=== PATIENT | female | born 1950 | race Caucasian/White ===

== ENCOUNTER → 2016-10-15 | Outpatient (CLI) | payer OTHER ==
[~2016-10-15] VITALS: Ht 157.5 cm; Wt 138.6 kg
[~2016-10-15] MED LIST: ACET-1311 PO; ADVIN50050 INH; ALBU1AER9 INH; ALBU1NEB10 INH; AMLO-114 PO; ATOR10TA88 PO; CHOL100010 PO; CLB100 PO; EFFSR75 PO; FLUT0.15 NAE; GABA-113 PO; GABA1CAP4 PO; METF-384 PO; PANT40TA PO; PRAM1TAB47 PO; SNG10 PO; SULF800T23 PO; TRAM-10 PO; VENL150T33 PO
[2016-10-15 16:47] VITALS: BP 129/80; PULSE 76; Ht 157.5 cm; Wt 138.6 kg
== END | disposition home or self-care (01) ==
LOC: C.NEUR 14:23
PROVIDERS: ATTEND Internal Medicine Pulmonary Disease
DX: G47.33 Obstructive sleep apnea (adult) (pediatric) (principal)

== ENCOUNTER → 2016-11-18 | Outpatient (CLI) | payer OTHER ==
[~2016-11-18] MED LIST changes: +ATOR10TA82 PO; -ATOR10TA88 PO
[2016-11-18 12:42] LABS: BASO % 0.2 %; BASO ABS # 0.02 K/uL (0-0.2); COMPLETE YES; EOS % 1.7 %; HEMATOCRIT 42.7 % (37-47); IG% 0.2 %; LYMPH % 25.9 %; MEAN CELL VOLUME 96.8 fL (80-100); MEAN CORPUSCULAR HEMOGLOBIN 31.7 pg (25-34); MEAN CORPUSCULAR HGB CONC 32.8 g/dl (32-36); MEAN PLATELET VOLUME 10.1 fL (7.4-10.4); MONO % 7.8 %; NEUT % 64.2 %; PLATELET COUNT 198 K/uL (130-400); RED BLOOD COUNT 4.41 M/uL (4.2-5.4); WHITE BLOOD COUNT 8.87 K/uL (4.8-10.8)
[2016-11-18 12:52] LABS: ALT/SGPT 92 U/L (12-78); BLOOD UREA NITROGEN 19 mg/dl (7-18); BUN/CREATININE RATIO 27.7 (10-20); CALCIUM 8.8 mg/dl (8.5-10.1); CARBON DIOXIDE 33 mmol/L (21-32); CHLORIDE 102 mmol/L (98-107); CHOLESTEROL 167 mg/dl (0-200); GLUCOSE 141 mg/dl (70-99); POTASSIUM 4.2 mmol/L (3.5-5.1); SODIUM 142 mmol/L (136-145); TRIGLYCERIDES 94 mg/dl (0-150); VERY LOW DENSITY LIPOPROT CALC 19 mg/dl
[2016-11-18 12:55] LABS: ALB/GLOB RATIO 0.9 (0.9-2); ALKALINE PHOSPHATASE 94 U/L (45-117); AST/SGOT 130 U/L (15-37); CHOLESTEROL/HDL RATIO 2.7; HDL CHOLESTEROL 61 mg/dl; LDL CHOLESTEROL CALCULATED 87 mg/dl
[2016-11-18 13:06] LABS: ESTIMATED AVERAGE GLUCOSE 131 mg/dl; HA1C FLAG Normal (Normal)
[2016-11-18 13:22] LABS: RATIO 5.8 mcg/mg (0-30.0)
== END | disposition home or self-care (01) ==
LOC: C.LABPVFM 08:23
PROVIDERS: ATTEND Physician Assistant Medical
DX: E11.9 Type 2 diabetes mellitus without complications (principal)

== ENCOUNTER → 2017-03-15 | Outpatient (CLI) | payer OTHER ==
[~2017-03-15] MED LIST changes: -ATOR10TA82 PO; +ATOR10TA88 PO
[2017-03-15 12:38] LABS: ESTIMATED AVERAGE GLUCOSE 140 mg/dl; HA1C FLAG Normal (Normal)
[2017-03-15 12:55] LABS: ALT/SGPT 114 U/L (12-78); AST/SGOT 130 U/L (15-37); BLOOD UREA NITROGEN 12 mg/dl (7-18); BUN/CREATININE RATIO 15.5 (10-20); CALCIUM 9.2 mg/dl (8.5-10.1); CARBON DIOXIDE 31 mmol/L (21-32); CHLORIDE 103 mmol/L (98-107); CHOLESTEROL 158 mg/dl (0-200); CREATININE 0.78 mg/dl (0.60-1.20); GLUCOSE 148 mg/dl (70-99); SODIUM 140 mmol/L (136-145); TRIGLYCERIDES 109 mg/dl (0-150); VERY LOW DENSITY LIPOPROT CALC 22 mg/dl
[2017-03-15 12:58] LABS: ALB/GLOB RATIO 0.8 (0.9-2); ALKALINE PHOSPHATASE 69 U/L (45-117); CHOLESTEROL/HDL RATIO 3.3; HDL CHOLESTEROL 48 mg/dl; LDL CHOLESTEROL CALCULATED 88 mg/dl
== END | disposition home or self-care (01) ==
LOC: C.LABBFT 08:11
PROVIDERS: ATTEND Internal Medicine
DX: E11.9 Type 2 diabetes mellitus without complications (principal); E55.9 Vitamin D deficiency, unspecified; K76.0 Fatty (change of) liver, not elsewhere classified

== ENCOUNTER → 2017-04-06 | Outpatient (CLI) | payer OTHER ==
--- NOTE | 2017-04-06 10:10 | DIAGNOSTIC IMAGING REPORT ---
PELVIC COMPLETE NON OB, TRANSVAG-FEMALE PELVIS CLINICAL HISTORY: 66 years-old Female presenting with abdominal pain at multiple sites, history of hysterectomy. TECHNIQUE: Real-time grayscale and color and spectral Doppler ultrasound imaging of the pelvis was performed first using a transabdominal probe and subsequently transvaginal for better characterization. COMPARISON: None. FINDINGS: Uterus: Postsurgical changes of hysterectomy. Right adnexa: Right ovary not visualized. Left adnexa: Left ovary not visualized. Other: No free fluid. IMPRESSION: Postsurgical changes of hysterectomy. Ovaries not visualized, possibly surgically absent. If there is continuing clinical concern for pelvic pathology, cross-sectional imaging could be obtained. Electronically signed by: Tico Adan M.D. 04/06/2017 10:09 AM Dictated Date/Time: 04/06/2017 10:07 AM
--- NOTE | 2017-04-06 10:13 | DIAGNOSTIC IMAGING REPORT ---
ABDOMEN COMPLETE (US) CLINICAL HISTORY: 66 years-old Female presenting with abdominal pain and multiple sites. TECHNIQUE: Real-time grayscale and limited color Doppler ultrasound imaging of the abdomen was performed. COMPARISON: 06/12/2015. FINDINGS: Pancreas: Visualized portions of the pancreatic head and body normal. Liver: Hyperechogenic parenchyma with heterogeneous echotexture, likely indicating fibrosis or steatosis. The liver measures 22 cm in maximal sagittal dimension. Main portal vein patent with normal directional flow. Biliary: No intrahepatic biliary ductal dilatation. Common bile duct measures up to 5 mm in diameter. Gallbladder: Surgically absent. Spleen: Normal in echogenicity and size, measuring 13.6 cm in length. Kidneys: Normal in size and echogenicity. Right kidney measures 10.6 cm, and left kidney measures 11.4 cm. No hydronephrosis. Vasculature: Limited visualization of the abdominal aorta and IVC. Visualized portions patent. Ascites: None. IMPRESSION: 1. Status post cholecystectomy. No biliary ductal dilatation. 2. Hepatomegaly. 3. Hyperechogenic liver parenchyma with heterogeneous echotexture, likely indicating fibrosis or steatosis. Further evaluation with MR of the liver could be considered as clinically warranted to quantify fat fraction. 4. Mild splenomegaly. In the setting of liver disease, this raises concern for portal hypertension. Electronically signed by: Tico Adan M.D. 04/06/2017 10:12 AM Dictated Date/Time: 04/06/2017 10:09 AM
== END | disposition home or self-care (01) ==
LOC: C.ULTR 09:14
PROVIDERS: ATTEND Internal Medicine
DX: R10.9 Unspecified abdominal pain (principal); R16.0 Hepatomegaly, not elsewhere classified; R93.2 Abnormal findings on diagnostic imaging of liver and biliary tract; Z90.49 Acquired absence of other specified parts of digestive tract; Z90.710 Acquired absence of both cervix and uterus

== ENCOUNTER → 2017-04-15 | Outpatient (CLI) | payer OTHER ==
[~2017-04-15] VITALS: Ht 157.5 cm; Wt 144.6 kg
[2017-04-15 14:11] VITALS: BP 121/73; PULSE 73; Ht 157.5 cm; Wt 144.6 kg
== END | disposition home or self-care (01) ==
LOC: C.NEUR 13:49
PROVIDERS: ATTEND Physician Assistant
DX: E66.01 Morbid (severe) obesity due to excess calories (principal); G47.34 Idiopathic sleep related nonobstructive alveolar hypoventilation; G47.33 Obstructive sleep apnea (adult) (pediatric); G47.61 Periodic limb movement disorder

== ENCOUNTER → 2017-04-15 | Outpatient (CLI) | payer OTHER ==
[~2017-04-15] MED LIST changes: +GADOXETATE DISODIUM (NON-WT BASED PROCEDURE) IV PRN
--- NOTE | 2017-04-15 17:42 | DIAGNOSTIC IMAGING REPORT ---
LIVER MRI HISTORY: R93.5 Abnormal findings on diagnostic imaging of [id number] Fa TECHNIQUE: Multiplanar multisequence MRI of the liver was performed both before and after the intravenous administration of 10 cc of Eovist contrast. COMPARISON STUDY: Abdominal ultrasound 04/06/2017. FINDINGS: Comparison of the liver on the out of phase imaging results in an approximate hepatic fat fraction of 16.3%. This is consistent with moderate steatosis. There is extensive motion artifact throughout the examination resulting in suboptimal evaluation of the abdomen. There are no definite hepatic or splenic masses. The adrenal glands, pancreas, and kidneys are unremarkable. The gallbladder surgically absent. Common bile duct is normal in course and caliber. No filling defects seen within the common bile duct. Normal caliber abdominal aorta. No retroperitoneal lymphadenopathy. The liver measures 23 cm in length. The spleen is normal in size measuring 11.5 cm in length. IMPRESSION: 1. Hepatomegaly demonstrating fatty change. The hepatic fat fraction is 16.3% consistent with moderate stenosis. 2. No hepatic lesions. 3. No acute abnormality within the abdomen. 4. Of note there is significant motion artifact throughout the examination resulting in suboptimal evaluation. Electronically signed by: Bean Landon M.D. 04/15/2017 5:40 PM Dictated Date/Time: 04/15/2017 5:28 PM
== END | disposition home or self-care (01) ==
LOC: C.MRI 15:05
PROVIDERS: ATTEND Physician Assistant
DX: R16.0 Hepatomegaly, not elsewhere classified (principal); K76.0 Fatty (change of) liver, not elsewhere classified; E66.01 Morbid (severe) obesity due to excess calories; G47.34 Idiopathic sleep related nonobstructive alveolar hypoventilation; G47.33 Obstructive sleep apnea (adult) (pediatric); G47.61 Periodic limb movement disorder

== ENCOUNTER → 2017-04-20 | Outpatient (CLI) | payer OTHER ==
[~2017-04-20] MED LIST changes: -GADOXETATE DISODIUM (NON-WT BASED PROCEDURE) IV PRN
--- NOTE | 2017-04-20 13:36 | DIAGNOSTIC IMAGING REPORT ---
NUCLEAR GASTRIC EMPTYING STUDY HISTORY: Generalized abdominal pain. Nausea. COMPARISON: Abdominal MRI 04/15/2017. TECHNIQUE: Following the oral administration of 1.1 mCi of technetium 99m sulfur colloid in egg sandwich and 8 ounces of water, static abdominal images are obtained anteriorly and posteriorly at 0 minutes, 1 hour, 2 hour, and 4 hour time intervals. Gastric emptying was calculated utilizing the geometric mean method. FINDINGS: There is approximately 91% activity remaining at the 1 hour time interval (normal is less than 90%), 57% remaining at the 2 hour time interval (normal is less than 60%), and 7% activity remaining at the 4 hour time interval (normal is less than 10%). IMPRESSION: Slightly delayed gastric emptying at the 1 hour time interval. Otherwise, normal gastric emptying study. Electronically signed by: Bean Landon M.D. 04/20/2017 1:35 PM Dictated Date/Time: 04/20/2017 1:34 PM
== END ==
LOC: C.NUCL 08:56
PROVIDERS: ATTEND Physician Assistant
DX: R11.0 Nausea (principal); R10.9 Unspecified abdominal pain

== ENCOUNTER → 2017-08-02 | Outpatient (CLI) | payer OTHER ==
[~2017-08-02] MED LIST changes: +ATOR10TA82 PO; -ATOR10TA88 PO; -SULF800T23 PO
[2017-08-02 13:19] LABS: ESTIMATED AVERAGE GLUCOSE 126 mg/dl; HA1C FLAG Normal (Normal)
[2017-08-02 13:28] LABS: ALT/SGPT 64 U/L (12-78); AST/SGOT 49 U/L (15-37); BLOOD UREA NITROGEN 18 mg/dl (7-18); BUN/CREATININE RATIO 22.8 (10-20); CALCIUM 8.9 mg/dl (8.5-10.1); CARBON DIOXIDE 28 mmol/L (21-32); CHLORIDE 103 mmol/L (98-107); GLUCOSE 146 mg/dl (70-99); SODIUM 136 mmol/L (136-145)
[2017-08-02 13:31] LABS: ALB/GLOB RATIO 0.8 (0.9-2); ALKALINE PHOSPHATASE 75 U/L (45-117)
[2017-08-02 13:32] LABS: CHOLESTEROL/HDL RATIO 2.6
== END | disposition home or self-care (01) ==
LOC: C.LABPVFM 09:10
PROVIDERS: ATTEND Internal Medicine
DX: E78.5 Hyperlipidemia, unspecified (principal); E11.9 Type 2 diabetes mellitus without complications; K76.0 Fatty (change of) liver, not elsewhere classified

== ENCOUNTER → 2017-08-31 | Outpatient (CLI) | payer OTHER ==
--- NOTE | 2017-08-31 15:09 | MAMMOGRAPHY REPORT ---
BILATERAL DIGITAL SCREENING MAMMOGRAM TOMOSYNTHESIS WITH CAD: 08/31/2017 CLINICAL HISTORY: Routine screening. Patient has no complaints. TECHNIQUE: Breast tomosynthesis in addition to standard 2D mammography was performed. Current study was also evaluated with a Computer Aided Detection (CAD) system. COMPARISON: Comparison is made to exams dated: 05/08/2015 mammogram, 05/27/2016 mammogram, 05/07/2014 mammogram, 12/22/2012 mammogram - [facility], and 09/19/2007. BREAST COMPOSITION: The tissue of both breasts is almost entirely fatty. FINDINGS: There are a few scattered benign rim calcifications in the breasts. No suspicious mass, a rchitectural distortion or cluster of suspicious microcalcifications is seen. IMPRESSION: ACR BI-RADS CATEGORY 1: NEGATIVE There is no mammographic evidence of malignancy. A 1 year screening mammogram is recommended. The pa tient will receive written notification of the results. Approximately 10% of breast cancers are not detected with mammography. A negative mammographic report should not delay biopsy if a clinically suggestive mass is present. Tori Diehl M.D. ay/:08/31/2017 11:59:23 Maintenance Service Supervisor: Yaquelin WILKINSON(Padmini)(Nilo), [facility] letter sent: Normal 1/2 BI-RADS Code: ACR BI-RADS Category 1: Negative
== END | disposition home or self-care (01) ==
LOC: C.MAMM 11:09
PROVIDERS: ATTEND Internal Medicine
DX: Z12.31 Encounter for screening mammogram for malignant neoplasm of breast (principal)

== ENCOUNTER 2017-10-19 09:49 | Emergency (ER) | payer OTHER ==
[~2017-10-19] VITALS: Ht 157.5 cm; Wt 138.0 kg
[~2017-10-19 09:49] MED LIST changes: +GABA-1219 PO; -GABA1CAP4 PO
[2017-10-19 09:51] VITALS: TEMP 36.3; Ht 157.5 cm; Wt 138.0 kg
[2017-10-19] MEDS ORDERED: PANT40TA2 PO (10:38)
[2017-10-19] MEDS ORDERED: LPT10 PO (10:38)
[2017-10-19] MEDS ORDERED: CELE1CAP28 PO (10:38)
[2017-10-19] MEDS ORDERED: AMLO-114 PO (10:38)
[2017-10-19] MEDS ORDERED: METF500T5 PO (10:38)
[2017-10-19] MEDS ORDERED: MONT1TAB3 PO (10:38)
[2017-10-19] MEDS ORDERED: GABA-113 PO ×2 (10:38)
--- NOTE | 2017-10-19 10:53 | EMERGENCY ROOM VISIT NOTE ---
History Report prepared by Cait: Jimmy Sutton Under the Supervision of: Dr. Chava Johnson M.D. First contact with patient: 10:35 Chief Complaint: HEADACHE Stated Complaint: HEADACHES, BODY ACHES, NECK, STOMACH RIB LEFT ONE History of Present Illness The patient is a 67 year old white female with a past medical history of asthma , diabetes, HTN who presents to the ED with a cc of a persistent headache beginning a few days ago. Positive blurry vision, nausea, sweats, chills, cough , abdominal pain. Negative loss of consciousness, vomiting. She states that she hit her head a week ago on the visor of her car, and a few days ago she tripped on [place] corner [place] the [place] and [place]. The patient notes that she hit the side of her head but did not pass out. She says that ever since the fall, she has had an achy headache "everywhere". The patient states that sleeping makes the headache better. She notes no recent medication changes or surgical history. She did not get her flu shot this season. The patient notes no current alcohol or tobaccos use. She does not take any blood thinners. Source of History: patient, family Onset: A few days ago Position: head Symptom Intensity: after falling Quality: other (ache) Timing: other (persistent) Associated Symptoms: + chills, + diaphoresis, + cough, + nausea, + abdominal pain, No LOC, No vomiting Note: Positive blurry vision. Review of Systems See HPI for pertinent positives and negatives. A total of ten systems were reviewed and were otherwise negative. Past Medical & Surgical Medical Problems: (1) Asthma (2) Bronchitis (3) Diabetes mellitus (4) HTN (hypertension) (5) PNA (pneumonia) (6) Rotator cuff injury Surgical Problems: (1) H/O: hysterectomy (2) History of cholecystectomy (3) History of knee replacement, total Family History Diabetes mellitus FH: heart disease Hypertension Social History Smoking Status: Never Smoker Alcohol Use: none Marital Status: Housing Status: lives with significant other Occupation Status: disabled Current/Historical Medications Scheduled Amlodipine (Norvasc), 10 MG PO DAILY Atorvastatin (Lipitor), 10 MG PO HS Celecoxib (Celecoxib), 100 MG PO BID Gabapentin (Neurontin), 300 MG PO BID Gabapentin (Neurontin), 900 MG PO HS Metformin Hcl Er (Glucophage Er), 1,000 MG PO BID Montelukast Sodium (Singulair), 10 MG PO DAILY Pantoprazole (Pantoprazole Sodium), 40 MG PO BID Allergies Coded Allergies: Cetirizine (Verified Allergy, Intermediate, RASH, 10/19/17) RASH Diphenhydramine (Verified Adverse Reaction, Mild, SHAKEY, DIZZY, DROWSY, ) SHAKES Metformin (Verified Adverse Reaction, Unknown, gi upset, 10/19/17) Physical Exam Vital Signs Date Time Temp Pulse Resp B/P (MAP) Pulse Ox O2 Delivery O2 Flow Rate FiO2 10/19/17 11:06 21 88 Room Air 10/19/17 11:06 92 Nasal Cannula 10/19/17 10:22 78 20 102/55 94 Room Air 10/19/17 09:51 36.3 80 18 98/48 93 Room Air Physical Exam GENERAL: Awake, alert, well-appearing, NAD HENT: Normocephalic, atraumatic. EYES: Gross vision intact to finger counting. EOMI, painless, no proptosis. Normal conjunctiva. Sclera non-icteric. NECK: Supple. No nuchal rigidity. FROM. RESPIRATORY: CTAB, no rhonchi, wheezing, crackles CARDIAC: RRR, no MRG ABDOMEN: Obese, soft, NTND, BS+ MSK: No chest wall TTP, no LE edema NEURO: CN 2-12 intact, 5/5 upper and lower extremity strength, no dysmetria, no drift, good finger to nose, no sensory deficits. SKIN: Surgical incisional scars over bilateral anterior knees. Medical Decision & Procedures ER Provider Diagnostic Interpretation: CT: Radiology results as stated below per my review and radiologist interpretation HEAD WITHOUT CONTRAST (CT) CLINICAL HISTORY: 67 years-old Female with Evaluate for hemorrhage or pathology. Acute headaches TECHNIQUE: Multiple axial CT images of the head were obtained without contrast. A dose lowering technique was utilized adhering to the principles of ALARA. CT DOSE: 537.48 mGy.cm COMPARISON: CT maxillofacial 09/11/2013. FINDINGS: No acute intracranial hemorrhage, midline shift, intracranial mass, hydrocephalus, territorial ischemia or abnormal extra-axial collection. Cerebral vascular calcifications are seen at the level of the skull base. The calvarium is intact. Small left mastoid effusion. There is mild volume loss of the left maxillary sinus. Hypoplasia of the frontal sinuses. Soft tissues and orbits are unremarkable. IMPRESSION: No acute intracranial abnormality. The above report was generated using voice recognition software. It may contain grammatical, syntax or spelling errors. Electronically signed by: Sp Garner M.D. 10/19/2017 11:39 AM Dictated Date/Time: 10/19/2017 11:34 AM Laboratory Results 10/19/17 11:03 Red Blood Count 4.17, Mean Corpuscular Volume 95.2, Mean Corpuscular Hemoglobin 32.4, Mean Corpuscular Hemoglobin Concent 34.0, Mean Platelet Volume 9.5, Neutrophils (%) (Auto) 75.3, Lymphocytes (%) (Auto) 11.7, Monocytes (%) (Auto) 12.6, Eosinophils (%) (Auto) 0.1, Basophils (%) (Auto) 0.2, Neutrophils # (Auto ) 10.40, Lymphocytes # (Auto) 1.62, Monocytes # (Auto) 1.75, Eosinophils # (Auto ) 0.02, Basophils # (Auto) 0.03 10/19/17 11:03 Test 10/19/17 11:03 White Blood Count 13.84 K/uL (4.8-10.8) Red Blood Count 4.17 M/uL (4.2-5.4) Hemoglobin 13.5 g/dL (12.0-16.0) Hematocrit 39.7 % (37-47) Mean Corpuscular Volume 95.2 fL (80-100) Mean Corpuscular Hemoglobin 32.4 pg (25-34) Mean Corpuscular Hemoglobin Concent 34.0 g/dl (32-36) Platelet Count 180 K/uL (130-400) Mean Platelet Volume 9.5 fL (7.4-10.4) Neutrophils (%) (Auto) 75.3 % Lymphocytes (%) (Auto) 11.7 % Monocytes (%) (Auto) 12.6 % Eosinophils (%) (Auto) 0.1 % Basophils (%) (Auto) 0.2 % Neutrophils # (Auto) 10.40 K/uL (1.4-6.5) Lymphocytes # (Auto) 1.62 K/uL (1.2-3.4) Monocytes # (Auto) 1.75 K/uL (0.11-0.59) Eosinophils # (Auto) 0.02 K/uL (0-0.5) Basophils # (Auto) 0.03 K/uL (0-0.2) RDW Standard Deviation 47.0 fL (36.4-46.3) RDW Coefficient of Variation 13.5 % (11.5-14.5) Immature Granulocyte % (Auto) 0.1 % Immature Granulocyte # (Auto) 0.02 K/uL (0.00-0.02) Prothrombin Time 10.7 SECONDS (9.0-12.0) Prothromb Time International Ratio 1.0 (0.9-1.1) Activated Partial Thromboplast Time 27.1 SECONDS (21.0-31.0) Partial Thromboplastin Ratio 1.0 Anion Gap 7.0 mmol/L (3-11) Est Creatinine Clear Calc Drug Dose 100.7 ml/min Estimated GFR () 96.9 Estimated GFR (Non- 83.6 BUN/Creatinine Ratio 18.1 (10-20) Calcium Level 9.7 mg/dl (8.5-10.1) Troponin I < 0.015 ng/ml (0-0.045) Laboratory results reviewed by me Medications Administered Medications (Trade) Dose Ordered Sig/Colin Route Start Time Stop Time Status Last Admin Dose Admin Prochlorperazine Edisylate (Compazine Inj) 10 mg NOW STAT IV 10/19/17 10:55 10/19/17 10:56 DC 10/19/17 11:19 10 MG Sodium Chloride 1,000 ml @ 999 mls/hr Q1H1M STAT IV 10/19/17 10:55 10/19/17 11:55 DC 10/19/17 11:19 999 MLS/HR Acetaminophen (Tylenol Tab) 1,000 mg NOW STAT PO 10/19/17 10:55 10/19/17 10:56 DC 10/19/17 11:19 1,000 MG Diphenhydramine HCl (Benadryl Inj) 25 mg NOW STAT IV 10/19/17 10:55 10/19/17 10:56 DC 10/19/17 11:19 25 MG ECG Per My Interpretation Indication: nausea Rate (beats per minute): 71 Rhythm: normal sinus Findings: other (normal intervals, normal axis, T-wave flattening lead 3) ED Course 1046: The patient was evaluated in room C6. A complete history and physical exam was performed. 1228: I reevaluated the patient and she is resting. Discussed results and discharge instructions: she verbalized understanding and agreement. The patient is ready for discharge. Medical Decision The patient is a 67 year old white female with a past medical history of asthma , diabetes, HTN who presents to the ED with a cc of a persistent headache beginning a few days ago. Positive blurry vision, nausea, sweats, chills, cough , abdominal pain. Negative loss of consciousness, vomiting. Differential diagnosis: Etiologies such as migraine headache, meningitis, sinusitis, CO exposure, ICH, SAH, infection, tumor, headache, sinus thrombosis, arterial dissection, as well as others were entertained. Patient was seen and evaluated the bedside. Patient was complaining of multiple complaints. Patient was complaining some mild headache. Patient has no focal neuro deficits no signs of meningismus. Patient did have a CT of her brain as the patient did state that she tripped and fell approximately 1 week prior. Patient does not take any blood thinning medications. Patient's gross visual acuity is intact. The patient did complain of some mild blurred vision but no double vision. Patient did have blood work completed along with an EKG and troponin. Patient's blood work did show a mild white count of 13,000. Patient's other blood work is fairly unremarkable. Patient had normal kidney function. Upon reassessment the patient was feeling improved. Patient was told of her findings. Patient was told to follow-up with her PCP. Given her negative troponin and EKG. Less likely ACS. Patient is PE RC of 1. Wells of 0. Less likely PE. I do not believe the patient requires any further imaging or treatment with regard to her headache now that it is resolved. Patient was given strict follow-up, discharge, and return precautions. All questions were answered. Patient was deemed suitable for outpatient follow-up at this time. Patient agreed with the plan of care and was safely discharged home. Medication Reconcilliation Current Medication List: was personally reviewed by me Blood Pressure Screening Patient's blood pressure: Normal blood pressure Impression Primary Impression: Headache Scribe Attestation The scribe's documentation has been prepared under my direction and personally reviewed by me in its entirety. I confirm that the note above accurately reflects all work, treatment, procedures, and medical decision making performed by me. Departure Information Dispostion Home / Self-Care Referrals Bismark Ronquillo M.D. (PCP) Patient Instructions Headache Pain, My [facility] Additional Instructions Please return to the emergency department if you have worsening or recurrent symptoms not amenable to at-home treatment. Please call for a follow-up appointment with her primary care physician. Please take your medications as prescribed. If you have other concerns and/or complaints please feel free to also call your primary care physician's office or return the ED for further evaluation, management, and treatment. You were found to have an elevated blood pressure today (>120 sytolic or >90 diastolic). Per medicare guidelines, you need to follow up with this blood pressure screening with your Primary Care Physician (PCP). For a new PCP call [phone]. You may take 600 mg Ibuprofen every 6 hours as needed for pain with food for no more than 2 consecutive days. You may take tylenol 1000 mg every 6 hours as needed for pain. You may take motrin and tylenol separately or at the same time. Take your medications as prescribed. If taking an antibiotic consider taking a probiotic and/or eating yogurt, but at the least, please take with food as it can cause upset stomach. If culture results are not available at discharge, if they are positive for concern of infection, you will be informed of the results as soon as they are available. You have been examined and treated today on an emergency basis only. This is not a substitute for, or an effort to provide, complete comprehensive medical care. It is impossible to recognize and treat all injuries or illnesses in a single emergency department visit. It is therefore important that you follow up closely with [facility], your PCP, and/or your specialist(s). Call as soon as possible for an appointment. Thank you for your time and consideration. I look forward to speaking with you again soon. Please don't hesitate to call us if you have any questions. Problem Qualifiers Primary Impression: Headache Headache type: unspecified Headache chronicity pattern: chronic headache Intractability: not intractable Qualified Codes: R51 - Headache
[2017-10-19] MEDS ORDERED: ACETAMINOPHEN 500 MG TAB PO STA (10:55)
[2017-10-19] MEDS ORDERED: SODIUM CHLORIDE 0.9% 1000ML 1,000 ML IV STA (10:55)
[2017-10-19] MEDS ORDERED: PROCHLORPERAZINE 5 MG/ML 2 ML VIAL IV STA (10:55)
[2017-10-19] MEDS ORDERED: DiphenhydrAMINE HCL 50 MG/ML VIAL IV STA (10:55)
[2017-10-19 11:06] VITALS: O2SAT 92
[2017-10-19 11:20] LABS: BASO % 0.2 %; BASO ABS # 0.03 K/uL (0-0.2); EOS % 0.1 %; EOS ABS # 0.02 K/uL (0-0.5); HEMATOCRIT 39.7 % (37-47); HEMOGLOBIN 13.5 g/dL (12.0-16.0); IG# 0.02 K/uL (0.00-0.02); LYMPH % 11.7 %; LYMPH ABS # 1.62 K/uL (1.2-3.4); MEAN CELL VOLUME 95.2 fL (80-100); MEAN CORPUSCULAR HEMOGLOBIN 32.4 pg (25-34); MEAN PLATELET VOLUME 9.5 fL (7.4-10.4); MONO % 12.6 %; MONO ABS # 1.75 K/uL (0.11-0.59); NEUT % 75.3 %; PLATELET COUNT 180 K/uL (130-400); RED CELL DISTRIBUTION WIDTH CV 13.5 % (11.5-14.5); WHITE BLOOD COUNT 13.84 K/uL (4.8-10.8)
[2017-10-19 11:28] LABS: PTT PATIENT 27.1 SECONDS (21.0-31.0)
[2017-10-19 11:37] LABS: BLOOD UREA NITROGEN 14 mg/dl (7-18); CALCIUM 9.7 mg/dl (8.5-10.1); CARBON DIOXIDE 28 mmol/L (21-32); CREATININE 0.75 mg/dl (0.60-1.20); GLUCOSE 152 mg/dl (70-99); POTASSIUM 3.9 mmol/L (3.5-5.1); SODIUM 136 mmol/L (136-145)
--- NOTE | 2017-10-19 11:40 | DIAGNOSTIC IMAGING REPORT ---
HEAD WITHOUT CONTRAST (CT) CLINICAL HISTORY: 67 years-old Female with Evaluate for hemorrhage or pathology. Acute headaches TECHNIQUE: Multiple axial CT images of the head were obtained without contrast. A dose lowering technique was utilized adhering to the principles of ALARA. CT DOSE: 537.48 mGy.cm COMPARISON: CT maxillofacial 09/11/2013. FINDINGS: No acute intracranial hemorrhage, midline shift, intracranial mass, hydrocephalus, territorial ischemia or abnormal extra-axial collection. Cerebral vascular calcifications are seen at the level of the skull base. The calvarium is intact. Small left mastoid effusion. There is mild volume loss of the left maxillary sinus. Hypoplasia of the frontal sinuses. Soft tissues and orbits are unremarkable. IMPRESSION: No acute intracranial abnormality. The above report was generated using voice recognition software. It may contain grammatical, syntax or spelling errors. Electronically signed by: Sp Garner M.D. 10/19/2017 11:39 AM Dictated Date/Time: 10/19/2017 11:34 AM
[2017-10-19 12:42] VITALS: BP 114/65; PULSE 83; O2SAT 92
== END 2017-10-19 13:00 | disposition home or self-care (01) ==
LOC: C.EDB 09:51 → C.EDC 13:00
DX: R51 Headache (principal); J45.909 Unspecified asthma, uncomplicated; E11.9 Type 2 diabetes mellitus without complications; I10 Essential (primary) hypertension; Z87.01 Personal history of pneumonia (recurrent); Z83.3 Family history of diabetes mellitus; Z82.49 Family history of ischemic heart disease and other diseases of the circulatory system; Z79.899 Other long term (current) drug therapy; Z88.8 Allergy status to other drugs, medicaments and biological substances

== ENCOUNTER 2017-10-22 11:32 | Emergency (ER) | payer OTHER ==
[~2017-10-22] VITALS: Ht 157.5 cm; Wt 137.0 kg
[~2017-10-22 11:32] MED LIST changes: -ACET-1311 PO; -ADVIN50050 INH; -ALBU1AER9 INH; -ALBU1NEB10 INH; -ATOR10TA82 PO; +CELE1CAP28 PO; -CHOL100010 PO; -CLB100 PO; -EFFSR75 PO; -FLUT0.15 NAE; -GABA-1219 PO; +LPT10 PO; -METF-384 PO; +METF500T5 PO; +MONT1TAB3 PO; -PANT40TA PO; +PANT40TA2 PO; -PRAM1TAB47 PO; -SNG10 PO; -TRAM-10 PO; -VENL150T33 PO
[2017-10-22 11:35] VITALS: TEMP 36.6; Ht 157.5 cm; Wt 137.0 kg
[2017-10-22] MEDS ORDERED: TRAM-10 PO (12:03)
[2017-10-22] MEDS ORDERED: MULT-506 PO (12:04)
[2017-10-22] MEDS ORDERED: ACET-1256 PO (12:05)
[2017-10-22] MEDS ORDERED: SODIUM CHLORIDE 0.9% 1000ML 1,000 ML IV STA (12:27)
[2017-10-22] MEDS ORDERED: KETOROLAC TROMETHAMINE 30 MG/ML VIAL IV STA (12:27)
[2017-10-22] MEDS ORDERED: ONDANSETRON INJ 2 MG/ML 2 ML VIAL IV STA (12:27)
[2017-10-22] MEDS ORDERED: HYDROmorphone INJ 1 MG/ML SYR IV STA (12:27)
[2017-10-22] MEDS ORDERED: OPTIRAY 320 IV PRN (12:45)
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
[2017-10-22 13:03] LABS: BASO % 0.2 %; BASO ABS # 0.02 K/uL (0-0.2); EOS % 0.5 %; EOS ABS # 0.06 K/uL (0-0.5); HEMATOCRIT 38.3 % (37-47); HEMOGLOBIN 12.9 g/dL (12.0-16.0); IG# 0.03 K/uL (0.00-0.02); LYMPH % 14.7 %; LYMPH ABS # 1.61 K/uL (1.2-3.4); MEAN CELL VOLUME 96.5 fL (80-100); MEAN CORPUSCULAR HEMOGLOBIN 32.5 pg (25-34); MEAN CORPUSCULAR HGB CONC 33.7 g/dl (32-36); MEAN PLATELET VOLUME 9.9 fL (7.4-10.4); MONO % 13.4 %; MONO ABS # 1.47 K/uL (0.11-0.59); NEUT % 70.9 %; NEUT ABS # 7.78 K/uL (1.4-6.5); PLATELET COUNT 170 K/uL (130-400); RED CELL DISTRIBUTION WIDTH CV 13.4 % (11.5-14.5); RED CELL DISTRIBUTION WIDTH SD 47.1 fL (36.4-46.3); WHITE BLOOD COUNT 10.97 K/uL (4.8-10.8)
[2017-10-22 13:17] LABS: ALBUMIN 2.5 gm/dl (3.4-5.0); CALCIUM 9.1 mg/dl (8.5-10.1); CREATININE 0.87 mg/dl (0.60-1.20); POTASSIUM 3.7 mmol/L (3.5-5.1)
[2017-10-22 13:20] LABS: TOTAL PROTEIN 7.3 gm/dl (6.4-8.2)
[2017-10-22] MEDS ORDERED: CEFTRIAXONE SOD INJ 1 GM ADDVIAL IV STA (13:27)
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
[2017-10-22] MEDS ORDERED: CIPROFLOXACIN 500MG HOME PACK PO STA (14:30)
[2017-10-22 15:08] VITALS: BP 112/62; PULSE 75; O2SAT 98
--- NOTE | 2017-10-24 11:46 | Pharmacy Progress Note ---
ED Pharmacist Culture FollowUp Date of Service: Oct 24, 2017. Urine cx is growing e coli sensitive to ciprofloxacin. Patient was discharged with cipro 500mg #2 homepack. She did not receive a written or e-Rx on discharge. Reviewed case with Dr Arambula. Rx for Cipro 250mg PO BID x 6 additional days called to [facility] [phone] per patient's request.
== END 2017-10-22 15:20 | disposition home or self-care (01) ==
LOC: C.EDB 11:34 → C.EDC 15:20
DX: N30.00 Acute cystitis without hematuria (principal); M54.2 Cervicalgia; M54.9 Dorsalgia, unspecified; M25.511 Pain in right shoulder; M25.512 Pain in left shoulder; W01.198A Fall on same level from slipping, tripping and stumbling with subsequent striking against other object, initial encounter; J45.909 Unspecified asthma, uncomplicated; E11.9 Type 2 diabetes mellitus without complications; I10 Essential (primary) hypertension; Z79.84 Long term (current) use of oral hypoglycemic drugs; Z88.8 Allergy status to other drugs, medicaments and biological substances; Z88.6 Allergy status to analgesic agent; Z83.3 Family history of diabetes mellitus; Z82.49 Family history of ischemic heart disease and other diseases of the circulatory system

== ENCOUNTER → 2017-10-27 | Outpatient (CLI) | payer OTHER ==
[~2017-10-27] MED LIST changes: +ACET-1256 PO; +MULT-506 PO; +TRAM-10 PO
--- NOTE | 2017-10-27 09:02 | DIAGNOSTIC IMAGING REPORT ---
(LIVER) ABDOMEN LIMITED CLINICAL HISTORY: ABNORMAL LIVER FUNCTION TEST TECHNIQUE: Ultrasound COMPARISON STUDY: None FINDINGS: Fatty infiltration of the liver. Prior cholecystectomy. Common bile duct 6 mm. Pancreas and right kidney are unremarkable. IMPRESSION: Fatty infiltration of liver. Prior cholecystectomy. The above report was generated using voice recognition software. It may contain grammatical, syntax or spelling errors. Electronically signed by: Otoniel Quintero M.D. 10/27/2017 9:00 AM Dictated Date/Time: 10/27/2017 8:57 AM
== END | disposition home or self-care (01) ==
LOC: C.ULTR 08:31
PROVIDERS: ATTEND Physician Assistant
DX: R79.89 Other specified abnormal findings of blood chemistry (principal)

== ENCOUNTER → 2018-03-07 | Outpatient (CLI) | payer OTHER ==
[~2018-03-07] MED LIST changes: -AMLO-114 PO; +AMLO10TA3 PO
[2018-03-07 17:27] LABS: BASO % 0.5 %; BASO ABS # 0.03 K/uL (0-0.2); EOS % 2.2 %; EOS ABS # 0.14 K/uL (0-0.5); HEMATOCRIT 42.6 % (37-47); HEMOGLOBIN 13.6 g/dL (12.0-16.0); IG# 0.01 K/uL (0.00-0.02); LYMPH % 32.6 %; MEAN CELL VOLUME 98.6 fL (80-100); MEAN CORPUSCULAR HEMOGLOBIN 31.5 pg (25-34); MEAN CORPUSCULAR HGB CONC 31.9 g/dl (32-36); MEAN PLATELET VOLUME 10.3 fL (7.4-10.4); MONO % 13.3 %; MONO ABS # 0.86 K/uL (0.11-0.59); NEUT % 51.2 %; NEUT ABS # 3.31 K/uL (1.4-6.5); PLATELET COUNT 198 K/uL (130-400); RED CELL DISTRIBUTION WIDTH CV 13.5 % (11.5-14.5); RED CELL DISTRIBUTION WIDTH SD 48.7 fL (36.4-46.3); WHITE BLOOD COUNT 6.45 K/uL (4.8-10.8)
[2018-03-07 17:47] LABS: ALBUMIN 3.6 gm/dl (3.4-5.0); ALKALINE PHOSPHATASE 71 U/L (45-117); ALT/SGPT 60 U/L (12-78); AST/SGOT 55 U/L (15-37); BLOOD UREA NITROGEN 18 mg/dl (7-18); CALCIUM 9.2 mg/dl (8.5-10.1); CARBON DIOXIDE 31 mmol/L (21-32); CHOLESTEROL 159 mg/dl (0-200); CREATININE 0.76 mg/dl (0.60-1.20); GLUCOSE 150 mg/dl (70-99); LDL CHOLESTEROL CALCULATED 88 mg/dl; POTASSIUM 4.2 mmol/L (3.5-5.1); SODIUM 138 mmol/L (136-145)
[2018-03-08 05:47] LABS: HEMOGLOBIN A1C 6.6 % (4.5-5.6)
== END | disposition home or self-care (01) ==
LOC: C.LABBFT 12:04
PROVIDERS: ATTEND Physician Assistant Medical
DX: E11.9 Type 2 diabetes mellitus without complications (principal); E78.5 Hyperlipidemia, unspecified; E55.9 Vitamin D deficiency, unspecified

== ENCOUNTER 2018-11-17 15:06 | Inpatient (IN) ==
[2018-11-17] MEDS ORDERED: ALBUT/IPRATROP 3MG/0.5MG NEB 3 ML VIAL NEB STA ×3 (16:21→20:30)
[2018-11-17] MEDS ORDERED: GABAPENTIN 300 MG CAP PO STA (16:21)
--- NOTE | 2018-11-17 16:44 | XRay Report ---
XR chest 1V portable CLINICAL HISTORY: 68 years-old Female presenting with sob. TECHNIQUE: Portable upright AP view of the chest was obtained. COMPARISON: Chest CT from 10/22/2017. FINDINGS: Cardiac silhouette moderately enlarged. Pulmonary vascular prominence. Mild bronchial wall cuffing. N o other focal opacity. No large effusion or pneumothorax. Degenerative changes of the thoracic spine. IMPRESSION: 1. Cardiomegaly with volume overload and early congestive change. No sonam pulmonary edema. Electronically signed by: Tico Adan M.D. 11/17/2018 4:42 PM
[2018-11-17 17:01] LABS: Basophils # (auto) 0.02 K/uL (0-0.2); Basophils % (auto) 0.2 %; Eosinophils % (auto) 1.8 %; Hematocrit (blood only) 39.7 % (37-47); Hemoglobin 13.2 g/dL (12.0-16.0); Immature Granulocytes # (auto) 0.03 K/uL (0.00-0.02); Immature Granulocytes % (auto) 0.3 %; Lymphocytes # (auto) 2.77 K/uL (1.2-3.4); Lymphocytes % (auto) 24.5 %; Mean Corpuscular Hgb Conc 33.2 g/dL (32-36); Mean Corpuscular Volume 96.8 fL (80-100); Mean Platelet Volume 9.9 fL (7.4-10.4); Monocytes # (auto) 0.98 K/uL (0.11-0.59); Monocytes % (auto) 8.7 %; Neutrophils % (auto) 64.5 %; Platelet Count 211 K/uL (130-400); RDW Coefficient of Variation 12.9 % (11.5-14.5); RDW Standard Deviation 45.5 fL (36.4-46.3)
[2018-11-17 17:19] LABS: Alanine Aminotransferase 38 U/L (12-78); Albumin Level 3.3 gm/dl (3.4-5.0); Aspartate Aminotransferase 27 U/L (15-37); BUN Creatinine Ratio 18.5 (10-20); Blood Urea Nitrogen 15 mg/dl (7-18); Calcium 8.7 mg/dl (8.5-10.1); Carbon Dioxide 33 mmol/L (21-32); Chloride 102 mmol/L (98-107); Creatinine Clr Calc Pharmacy 94.1 ml/min; Est GFR (African American) 87.7; Est GFR (Non-African American) 75.7; Glucose 200 mg/dl (70-99); Magnesium 1.7 mg/dl (1.8-2.4); Potassium 3.9 mmol/L (3.5-5.1); Sodium 140 mmol/L (136-145)
[2018-11-17 17:30] LABS: Albumin Globulin Ratio 0.7 (0.9-2); Alkaline Phosphatase 105 U/L (45-117); Bilirubin,Total 0.3 mg/dl (0.2-1); Globulin 4.4 gm/dl (2.5-4.0); NT Pro B Type Natriuretic Pept 188 pg/ml (0-900); Total Protein 7.7 gm/dl (6.4-8.2); Troponin I < 0.015 ng/ml (0-0.045)
[2018-11-17] MEDS ORDERED: MAGNESIUM SULFATE / D5W 1 GM/100 ML BAG IV ONE (17:43)
[2018-11-17] MEDS ORDERED: KETOROLAC TROMETHAMINE 15 MG/ML VIAL IV STA (18:37)
[2018-11-17] MEDS ORDERED: methylPREDNISolone 125 MG/2 ML VIAL IV STA (18:37)
[2018-11-17 19:03] LABS: Appearance Urine Clear (Clear); Blood Urine Negative (Negative); Color Urine Dark Yellow; Glucose Urine UA 2+ (Negative); Ketones Urine Trace (Negative); Leukocyte Esterase Urine Negative (Negative); Nitrite Urine Negative (Negative); Protein Urine Negative (Negative); Specific Gravity Urine 1.031 (1.000-1.030); Urobilinogen Urine Negative (Negative)
[2018-11-17 19:08] LABS: Bilirubin Urine Negative (Negative); Ictotest Urine Negative (Negative)
[2018-11-17] MEDS ORDERED: BENZONATATE 100 MG CAPSULE PO ONE (20:28)
[2018-11-17] MEDS ORDERED: LEVOFLOXACIN/D5W 750 MG/150 ML BAG IV STA (20:29)
--- NOTE | 2018-11-17 20:39 | Emergency Department Note ---
Entered by Tahir Joshi acting as a scribe for Kendy Gage DO History of Present Illness General Chief complaint: Leg Injury/Pain Stated complaint: SOB, CONGESTION, L LEG NUMBNESS Time Seen by Provider: 11/17/18 16:05 Source: patient History of Present Illness Onset (ago): month(s) 3 Location: hip Radiation: extremity (legs) Pain Consistency: + constant Maximum Pain Intensity: 8 Associated symptoms: + other (Positive for SOB, chest congestion, leg swelling, chils, chest pain, a cough, a fever, a headache, and a sore throat.) The patient is a 68 year old female who presents to the emergency department with complaints of constant hip pain beginning three months ago. The patient states that she has been getting spinal stenosis injections every few months for a year; however, she notes that she has not gotten an injection in four months. She reports that she has been having constant bilateral hip pain that radiates down the back of her legs. The patient states that her legs have also been tingling for the last few days. She notes that her pain is worse on the left which is her normal. She also complains of worsening SOB, chest congestion, leg swelling, chills, chest pain, a cough, a fever, a headache, and a sore throat over the last 3 days. She reports that her SOB and sore throat started a week ago. The patient states that she has a history of asthma and COPD. She notes that she does not smoke cigarettes and she reports that she wears 3L of oxygen at night. She states she does have an MDI at home. The patient states that she received a flu shot this year. She notes that she does not use any blood thinners. Unknown if sick contacts. No recent travel. No falls of injury to her back. No saddle anesthesia, no incontinence. Pt states she has a long history of back problem and her back pain is what she normally develops when she is due for another injection. Home Medications Home Medications Medication Instructions Recorded Confirmed Type acetaminophen 500 mg tablet 1,000 mg PO ONCE PRN tab 04/14/18 11/17/18 History amlodipine 10 mg tablet 10 mg PO DAILY 04/14/18 11/17/18 History atorvastatin 10 mg tablet 10 mg PO DAILY 04/14/18 11/17/18 History celecoxib 100 mg capsule 100 mg PO BID 04/14/18 11/17/18 History gabapentin 300 mg capsule 300 mg PO BID 04/14/18 11/17/18 History gabapentin 300 mg capsule 900 mg PO .QHS cap 04/14/18 11/17/18 History montelukast 10 mg tablet 10 mg PO QPM 04/14/18 11/17/18 History multivitamin,tx-minerals capsule 1 cap PO DAILY 04/14/18 11/17/18 History pantoprazole 40 mg tablet,delayed 40 mg PO BID 04/14/18 11/17/18 History release cholecalciferol (vitamin D3) 1,000 1,000 units PO DAILY 07/19/18 11/17/18 History unit capsule lidocaine 5 % topical ointment 1 appln TOP BID 07/19/18 11/17/18 History pramipexole 0.5 mg tablet 0.5 mg PO QPM 07/19/18 11/17/18 History ascorbate calcium-bioflavonoid 1 tab PO DAILY 11/17/18 11/17/18 History [Brit-C with Bioflavonoids] ascorbic acid (vitamin C) [Vitamin 0 mg PO DAILY 11/17/18 11/17/18 History C] oxybutynin chloride 5 mg PO DAILY 11/17/18 11/17/18 History Allergies Allergy/AdvReac Type Severity Reaction Status Date / Time cetirizine Allergy Intermediate RASH Verified 11/17/18 17:12 diphenhydramine AdvReac Mild SHAKEY, Verified 11/17/18 17:12 DIZZY, DROWSY metformin AdvReac Unknown gi upset Verified 11/17/18 17:12 Past Med/Surg History Social History Communication Ability: Effective Beliefs That Will Affect Care: None marital status: Current Living Situation: Alone Feels Safe at Home: Yes Safety Concerns: Feels Safe At This Time Smoking Status: Never smoker Hx Alcohol Use: Yes Hx Substance Use: No Review of Systems See HPI for pertinent positives & negatives. and A total of 10 systems reviewed and were otherwise negative Physical Exam Vital Signs Vital Signs - 24 hr 11/19/18 00:00 11/19/18 07:05 11/19/18 07:59 Temperature 36.6 C 36.9 C Temperature Source Oral Oral Pulse Rate [Right Finger] 84 67 90 Respiratory Rate 20 18 16 Respiratory Effort / Characteristics Non-Labored Spontaneous Respiratory Depth Normal Respiratory Pattern Blood Pressure [Right Arm] 113/68 109/61 Blood Pressure Mean [Right Arm] 83 77 Blood Pressure Position [Right Arm] Sitting Lying Pulse Oximetry 97 95 Oxygen Delivery Method Nasal Cannula Nasal Cannula Nasal Cannula Oxygen Flow Rate 2 3 2 11/19/18 11:33 11/19/18 11:46 11/19/18 12:47 Temperature 36.7 C Temperature Source Oral Pulse Rate [Right Finger] 77 82 Respiratory Rate 18 16 Respiratory Effort / Characteristics Respiratory Depth Respiratory Pattern Blood Pressure [Right Arm] 131/76 Blood Pressure Mean [Right Arm] 94 Blood Pressure Position [Right Arm] Lying Pulse Oximetry 98 97 91 Oxygen Delivery Method Room Air Nasal Cannula Nebulizer Room Air Oxygen Flow Rate 11/19/18 15:07 11/19/18 15:17 11/19/18 15:19 Temperature 36.9 C Temperature Source Oral Pulse Rate [Right Finger] 95 H 84 Respiratory Rate 18 16 Respiratory Effort / Characteristics Non-Labored Spontaneous Non-Labored Respiratory Depth Normal Respiratory Pattern Regular Blood Pressure [Right Arm] 121/71 Blood Pressure Mean [Right Arm] 87 Blood Pressure Position [Right Arm] Lying Pulse Oximetry 94 95 Oxygen Delivery Method Nasal Cannula Nebulizer Oxygen Flow Rate 3 11/19/18 19:34 Temperature Temperature Source Pulse Rate [Right Finger] 90 Respiratory Rate 16 Respiratory Effort / Characteristics Non-Labored Spontaneous Respiratory Depth Respiratory Pattern Blood Pressure [Right Arm] Blood Pressure Mean [Right Arm] Blood Pressure Position [Right Arm] Pulse Oximetry 95 Oxygen Delivery Method Nasal Cannula Oxygen Flow Rate 3 GENERAL: alert, well appearing, well nourished, no distress, non-toxic, obese. EYE EXAM: normal conjunctiva, PERRL and EOM's grossly intact OROPHARYNX: no exudate, no erythema, lips, buccal mucosa, and tongue normal and mucous membranes are moist NECK: supple, no nuchal rigidity, no adenopathy, non-tender LUNGS: Clear to auscultation. Normal chest wall mechanics. Decreased breath sounds, no wheezes, rhonchi, and rales. HEART: no murmurs, S1 normal and S2 normal ABDOMEN: abdomen soft, non-tender, normo-active bowel sounds, no masses, no rebound or guarding. BACK: Back is symmetrical on inspection and there is no deformity, no midline tenderness, no CVA tenderness. SKIN: no rashes and no bruising UPPER EXTREMITIES: upper extremities are grossly normal. Nml pulses b/l. LOWER EXTREMITIES: No pitting edema. Well healed scar on anterior aspect of the distal LLE, normal pulses. Nml sensory exam b/l. NEURO EXAM: Normal sensorium, cranial nerves II-XII grossly intact, normal speech, no gross weakness of arms, no gross weakness of legs. Course 1606: The patient was evaluated in room C8, and a complete history and physical examination were performed. 1811: I reevaluated and updated the patient. Nursing reported pt's sats dropped to 85% after going to the bathroom. Pt denies any improvement after nebs. 2021: I rechecked the patient. She still has a frequent cough and does not feel any better. She is not hypoxic and she has an oxygen saturation of 93% at this time. We discussed options of discharge with close follow up versus admission. 2232: Upon reevaluation, the patient is stable. I discussed the results and treatment plan with the patient. She verbalizes understanding and agreement. I discussed the patient's case with DIANNA Wharton. The patient will be evaluated for further management and care. Consultations Consultation #1: I reviewed the patient's case with DIANNA Wharton. He will evaluate the patient for further management. Time: 22:33 Administered Medications Acetaminophen (Tylenol) 650 mg PO Q4H PRN PRN Reason: Pain or Fever Stop: 12/18/18 00:44 Last Admin: 11/19/18 04:23 Dose: 650 mg Documented by: [id number] Albuterol (Duoneb) 3 ml NEB QIDR DEDE Stop: 12/18/18 07:59 Last Admin: 11/19/18 19:32 Dose: 3 ml Documented by: [id number] Admin: 11/19/18 15:06 Dose: 3 ml Documented by: [id number] Admin: 11/19/18 11:31 Dose: 3 ml Documented by: [id number] Admin: 11/19/18 07:03 Dose: 3 ml Documented by: [id number] Admin: 11/18/18 19:47 Dose: 3 ml Documented by: [id number] Admin: 11/18/18 15:21 Dose: 3 ml Documented by: [id number] Admin: 11/18/18 11:23 Dose: 3 ml Documented by: [id number] Admin: 11/18/18 07:35 Dose: 3 ml Documented by: [id number] Amlodipine Besylate (Norvasc) 10 mg PO DAILY DEDE Stop: 12/18/18 08:59 Last Admin: 11/19/18 08:58 Dose: 10 mg Documented by: [id number] Admin: 11/18/18 09:03 Dose: 10 mg Documented by: [id number] Atorvastatin Calcium (Lipitor) 10 mg PO DAILY DEDE Stop: 12/18/18 08:59 Last Admin: 11/19/18 08:57 Dose: 10 mg Documented by: [id number] Admin: 11/18/18 08:58 Dose: Not Given Documented by: [id number] Duloxetine HCl (Cymbalta) 20 mg PO QAM DEDE Stop: 12/19/18 08:59 Last Admin: 11/19/18 08:56 Dose: 20 mg Documented by: [id number] Gabapentin (Neurontin) 300 mg PO BID@0900,1400 DEDE Stop: 12/18/18 08:59 Last Admin: 11/19/18 12:54 Dose: 300 mg Documented by: [id number] Admin: 11/19/18 08:58 Dose: 300 mg Documented by: [id number] Admin: 11/18/18 14:00 Dose: 300 mg Documented by: [id number] Admin: 11/18/18 09:02 Dose: 300 mg Documented by: [id number] Gabapentin (Neurontin) 900 mg PO HS DEDE Stop: 12/18/18 00:44 Last Admin: 11/19/18 21:24 Dose: 900 mg Documented by: [id number] Admin: 11/18/18 21:04 Dose: 900 mg Documented by: [id number] Admin: 11/18/18 01:26 Dose: 900 mg Documented by: [id number] Heparin Sodium (Porcine) (Heparin Sodium (Porcine)) 5,000 units SQ Q12 DEDE Stop: 12/18/18 08:59 Last Admin: 11/19/18 21:23 Dose: 5,000 units Documented by: [id number] Cosigned by: [id number] Admin: 11/19/18 09:00 Dose: 5,000 units Documented by: [id number] Cosigned by: [id number] Admin: 11/18/18 21:08 Dose: 5,000 units Documented by: [id number] Cosigned by: [id number] Admin: 11/18/18 09:07 Dose: 5,000 units Documented by: [id number] Cosigned by: [id number] Levofloxacin/Dextrose (Levaquin/D5w) 500 mg in 100 mls @ 100 mls/hr IV Q24H DEDE Stop: 11/23/18 21:59 Last Admin: 11/19/18 21:26 Dose: 100 mls/hr Documented by: [id number] Infusion: 11/18/18 22:37 Dose: 0 mls/hr Documented by: [id number] Admin: 11/18/18 21:07 Dose: 100 mls/hr Documented by: [id number] Insulin Aspart (Novolog Flexpen) 0 units SC ACHS DEDE Stop: 12/18/18 12:29 Last Admin: 11/19/18 21:25 Dose: 21 units Documented by: [id number] Cosigned by: [id number] Admin: 11/19/18 18:20 Dose: 36 units Documented by: [id number] Cosigned by: [id number] Admin: 11/19/18 12:51 Dose: 41 units Documented by: [id number] Cosigned by: [id number] Admin: 11/19/18 08:59 Dose: 9 units Documented by: [id number] Cosigned by: [id number] Admin: 11/18/18 21:12 Dose: 6 units Documented by: [id number] Cosigned by: [id number] Admin: 11/18/18 18:01 Dose: 13 units Documented by: [id number] Cosigned by: [id number] Admin: 11/18/18 13:59 Dose: 10 units Documented by: [id number] Cosigned by: [id number] Montelukast Sodium (Singulair) 10 mg PO QPM DEDE Stop: 12/18/18 20:59 Last Admin: 11/19/18 21:24 Dose: 10 mg Documented by: [id number] Admin: 11/18/18 21:07 Dose: 10 mg Documented by: [id number] Multivitamins/Minerals (Multivitamin W/ Minerals Tab) 1 tab PO DAILY DEDE Stop: 12/18/18 08:59 Last Admin: 11/19/18 08:57 Dose: 1 tab Documented by: [id number] Admin: 11/18/18 09:00 Dose: 1 tab Documented by: [id number] Oxybutynin Chloride (Ditropan Xl) 5 mg PO DAILY DEDE Stop: 12/18/18 08:59 Last Admin: 11/19/18 08:57 Dose: 5 mg Documented by: [id number] Admin: 11/18/18 09:00 Dose: 5 mg Documented by: [id number] Pantoprazole Sodium (Protonix) 40 mg PO BID DEDE Stop: 12/18/18 00:44 Last Admin: 11/19/18 21:24 Dose: 40 mg Documented by: [id number] Admin: 11/19/18 08:58 Dose: 40 mg Documented by: [id number] Admin: 11/18/18 21:03 Dose: 40 mg Documented by: [id number] Admin: 11/18/18 09:03 Dose: 40 mg Documented by: [id number] Admin: 11/18/18 01:26 Dose: 40 mg Documented by: [id number] Pramipexole Dihydrochloride (Mirapex) 0.5 mg PO QPM DEDE Stop: 12/18/18 20:59 Last Admin: 11/19/18 21:24 Dose: 0.5 mg Documented by: [id number] Admin: 11/18/18 21:06 Dose: 0.5 mg Documented by: [id number] Prednisone (Prednisone) 50 mg PO QAM DEDE Stop: 12/19/18 08:59 Last Admin: 11/19/18 09:08 Dose: 50 mg Documented by: [id number] Vitamin D (Vitamin D3) 1,000 units PO DAILY DEDE Stop: 12/18/18 08:59 Last Admin: 11/19/18 08:59 Dose: 1,000 units Documented by: [id number] Admin: 11/18/18 09:05 Dose: 1,000 units Documented by: [id number] Discontinued Medications Albuterol (Duoneb) 3 ml NEB NOW STA Stop: 11/17/18 16:22 Last Admin: 11/17/18 16:55 Dose: 3 ml Documented by: [id number] Albuterol (Duoneb) 3 ml NEB NOW STA Stop: 11/17/18 18:38 Last Admin: 11/17/18 19:29 Dose: 3 ml Documented by: [id number] Albuterol (Duoneb) 3 ml NEB NOW STA Stop: 11/17/18 20:31 Last Admin: 11/17/18 20:57 Dose: 3 ml Documented by: [id number] Benzonatate (Tessalon Perle) 100 mg PO NOW ONE Stop: 11/17/18 20:29 Last Admin: 11/17/18 20:57 Dose: 100 mg Documented by: [id number] Furosemide (Lasix) 40 mg PO NOW ONE Stop: 11/19/18 10:07 Last Admin: 11/19/18 11:54 Dose: 40 mg Documented by: [id number] Gabapentin (Neurontin) 300 mg PO NOW STA Stop: 11/17/18 16:22 Last Admin: 11/17/18 16:55 Dose: 300 mg Documented by: [id number] Magnesium Sulfate/Dextrose (Magnesium Sulfate / D5w) 1 gm in 100 mls @ 100 mls/hr IV ONE ONE Stop: 11/17/18 18:42 Last Infusion: 11/17/18 20:08 Dose: 0 mls/hr Documented by: [id number] Admin: 11/17/18 18:37 Dose: 100 mls/hr Documented by: [id number] Levofloxacin/Dextrose (Levaquin/D5w) 750 mg in 150 mls @ 100 mls/hr IV NOW STA Stop: 11/17/18 21:58 Last Infusion: 11/17/18 22:35 Dose: 0 mls/hr Documented by: [id number] Admin: 11/17/18 20:57 Dose: 100 mls/hr Documented by: [id number] Ceftriaxone Sodium 1,000 mg/ (Dextrose) 60 mls @ 100 mls/hr IV DAILY DEDE Stop: 11/25/18 08:59 Last Infusion: 11/18/18 10:00 Dose: 0 mls/hr Documented by: [id number] Admin: 11/18/18 09:08 Dose: 100 mls/hr Documented by: [id number] Methylprednisolone 40 mg/ (Syringe) 0.64 mls @ 1.5 mls/min IV Q8H DEDE Stop: 12/18/18 03:59 Last Admin: 11/19/18 04:17 Dose: 1.5 mls/min Documented by: [id number] Admin: 11/18/18 19:57 Dose: 1.5 mls/min Documented by: [id number] Admin: 11/18/18 12:45 Dose: 1.5 mls/min Documented by: [id number] Admin: 11/18/18 04:37 Dose: 1.5 mls/min Documented by: [id number] Insulin Glargine (Lantus Solostar Pen) 10 units SC NOW ONE Stop: 11/18/18 12:46 Last Admin: 11/18/18 13:59 Dose: 10 units Documented by: [id number] Cosigned by: [id number] Insulin Glargine (Lantus Solostar Pen) 35 units SC NOW ONE; Protocol Stop: 11/19/18 12:31 Last Admin: 11/19/18 12:52 Dose: 35 units Documented by: [id number] Cosigned by: [id number] Ketorolac Tromethamine (Toradol) 15 mg IV NOW STA Stop: 11/17/18 18:38 Last Admin: 11/17/18 19:29 Dose: 15 mg Documented by: [id number] Methylprednisolone (Solumedrol) 60 mg IV NOW STA Stop: 11/17/18 18:38 Last Admin: 11/17/18 19:29 Dose: 60 mg Documented by: [id number] Miscellaneous Information (Consult Glycemic Management Pharmacy) 1 ea N/A NOW STA Stop: 11/19/18 11:48 Last Admin: 11/19/18 12:53 Dose: 1 ea Documented by: [id number] Medical Decision Making Differential Diagnosis Differential diagnosis: Etiologies such as infections, reactive airway disease, COPD, pneumonia, pleural effusion, pulmonary edema, ARDS, pneumothorax, CHF, cardiac ischemia, cardiac tamponade, dysrhythmia, anemia, pulmonary embolism, musculoskeletal, gastrointestinal process, as well as others were entertained. Medical Records Attestation: I reviewed the patient's medical records. Home Medications Current Medication List: was personally reviewed by me Laboratory Data Attestation: I reviewed the patient's lab results. Result diagrams: 11/17/18 16:36 11/17/18 16:36 Lab Results 11/17/18 11/17/18 11/17/18 Range/Units 16:36 16:36 16:48 WBC 11.30 H (4.8-10.8) K/uL RBC 4.10 L (4.2-5.4) M/uL Hgb 13.2 (12.0-16.0) g/dL Hct 39.7 (37-47) % MCV 96.8 (80-100) fL MCH 32.2 (25-34) pg MCHC 33.2 (32-36) g/dL RDW Std Deviation 45.5 (36.4-46.3) fL RDW Coeff of Shant 12.9 (11.5-14.5) % Plt Count 211 (130-400) K/uL MPV 9.9 (7.4-10.4) fL Immature Gran % (Auto) 0.3 % Neut % (Auto) 64.5 % Lymph % (Auto) 24.5 % [place] % (Auto) 8.7 % Eos % (Auto) 1.8 % Baso % (Auto) 0.2 % Immature Gran # (Auto) 0.03 H (0.00-0.02) K/uL Neut # (Auto) 7.30 H (1.4-6.5) K/uL Lymph # (Auto) 2.77 (1.2-3.4) K/uL [place] # (Auto) 0.98 H (0.11-0.59) K/uL Eos # (Auto) 0.20 (0-0.5) K/uL Baso # (Auto) 0.02 (0-0.2) K/uL Sodium 140 (136-145) mmol/L Potassium 3.9 (3.5-5.1) mmol/L Chloride 102 (98-107) mmol/L Carbon Dioxide 33 H (21-32) mmol/L Anion Gap 5.0 (3-11) BUN 15 (7-18) mg/dl Creatinine 0.81 (0.6-1.2) mg/dl Est Cr Clr Drug Dosing 94.1 ml/min Est GFR ( Amer) 87.7 Est GFR (Non-Af Amer) 75.7 BUN/Creatinine Ratio 18.5 (10-20) Glucose 200 H (70-99) mg/dl POC Glucose (70-99) Calcium 8.7 (8.5-10.1) mg/dl Magnesium 1.7 L (1.8-2.4) mg/dl Total Bilirubin 0.3 (0.2-1) mg/dl AST 27 (15-37) U/L ALT 38 (12-78) U/L Alkaline Phosphatase 105 (45-117) U/L Troponin I < 0.015 (0-0.045) ng/ml NT-Pro-B Natriuret Pep 188 (0-900) pg/ml Total Protein 7.7 (6.4-8.2) gm/dl Albumin 3.3 L (3.4-5.0) gm/dl Globulin 4.4 H (2.5-4.0) gm/dl Albumin/Globulin Ratio 0.7 L (0.9-2) Lipase 61 L (73-393) U/L TSH 1.040 (0.300-4.500) uIu/ml Urine Color Urine Appearance (Clear) Urine pH (4.5-7.5) Ur Specific [place] (1.000-1.030) Urine Protein (Negative) Urine Glucose (UA) (Negative) Urine Ketones (Negative) Urine Blood (Negative) Urine Nitrite (Negative) Urine Bilirubin (Negative) Urine Urobilinogen (Negative) Ur Leukocyte Esterase (Negative) Nasal Screen MRSA (PCR) (Negative) Influenza Type A (PCR) Neg for Influ A (Neg) Influenza Type B (PCR) Neg for Influ B (Neg) 11/17/18 11/18/18 11/18/18 Range/Units 18:30 01:00 07:56 WBC (4.8-10.8) K/uL RBC (4.2-5.4) M/uL Hgb (12.0-16.0) g/dL Hct (37-47) % MCV (80-100) fL MCH (25-34) pg MCHC (32-36) g/dL RDW Std Deviation (36.4-46.3) fL RDW Coeff of Shant (11.5-14.5) % Plt Count (130-400) K/uL MPV (7.4-10.4) fL Immature Gran % (Auto) % Neut % (Auto) % Lymph % (Auto) % [place] % (Auto) % Eos % (Auto) % Baso % (Auto) % Immature Gran # (Auto) (0.00-0.02) K/uL Neut # (Auto) (1.4-6.5) K/uL Lymph # (Auto) (1.2-3.4) K/uL [place] # (Auto) (0.11-0.59) K/uL Eos # (Auto) (0-0.5) K/uL Baso # (Auto) (0-0.2) K/uL Sodium (136-145) mmol/L Potassium (3.5-5.1) mmol/L Chloride (98-107) mmol/L Carbon Dioxide (21-32) mmol/L Anion Gap (3-11) BUN (7-18) mg/dl Creatinine (0.6-1.2) mg/dl Est Cr Clr Drug Dosing ml/min Est GFR ( Amer) Est GFR (Non-Af Amer) BUN/Creatinine Ratio (10-20) Glucose (70-99) mg/dl POC Glucose 288 H (70-99) Calcium (8.5-10.1) mg/dl Magnesium (1.8-2.4) mg/dl Total Bilirubin (0.2-1) mg/dl AST (15-37) U/L ALT (12-78) U/L Alkaline Phosphatase (45-117) U/L Troponin I (0-0.045) ng/ml NT-Pro-B Natriuret Pep (0-900) pg/ml Total Protein (6.4-8.2) gm/dl Albumin (3.4-5.0) gm/dl Globulin (2.5-4.0) gm/dl Albumin/Globulin Ratio (0.9-2) Lipase (73-393) U/L TSH (0.300-4.500) uIu/ml Urine Color Dark Yellow Urine Appearance Clear (Clear) Urine pH 5.0 (4.5-7.5) Ur Specific [place] 1.031 H (1.000-1.030) Urine Protein Negative (Negative) Urine Glucose (UA) 2+ H (Negative) Urine Ketones Trace H (Negative) Urine Blood Negative (Negative) Urine Nitrite Negative (Negative) Urine Bilirubin Negative (Negative) Urine Urobilinogen Negative (Negative) Ur Leukocyte Esterase Negative (Negative) Nasal Screen MRSA (PCR) Negative (Negative) Influenza Type A (PCR) (Neg) Influenza Type B (PCR) (Neg) 11/18/18 11/18/18 11/18/18 Range/Units 11:51 16:32 21:11 WBC (4.8-10.8) K/uL RBC (4.2-5.4) M/uL Hgb (12.0-16.0) g/dL Hct (37-47) % MCV (80-100) fL MCH (25-34) pg MCHC (32-36) g/dL RDW Std Deviation (36.4-46.3) fL RDW Coeff of Shant (11.5-14.5) % Plt Count (130-400) K/uL MPV (7.4-10.4) fL Immature Gran % (Auto) % Neut % (Auto) % Lymph % (Auto) % [place] % (Auto) % Eos % (Auto) % Baso % (Auto) % Immature Gran # (Auto) (0.00-0.02) K/uL Neut # (Auto) (1.4-6.5) K/uL Lymph # (Auto) (1.2-3.4) K/uL [place] # (Auto) (0.11-0.59) K/uL Eos # (Auto) (0-0.5) K/uL Baso # (Auto) (0-0.2) K/uL Sodium (136-145) mmol/L Potassium (3.5-5.1) mmol/L Chloride (98-107) mmol/L Carbon Dioxide (21-32) mmol/L Anion Gap (3-11) BUN (7-18) mg/dl Creatinine (0.6-1.2) mg/dl Est Cr Clr Drug Dosing ml/min Est GFR ( Amer) Est GFR (Non-Af Amer) BUN/Creatinine Ratio (10-20) Glucose (70-99) mg/dl POC Glucose 304 H 287 H 311 H (70-99) Calcium (8.5-10.1) mg/dl Magnesium (1.8-2.4) mg/dl Total Bilirubin (0.2-1) mg/dl AST (15-37) U/L ALT (12-78) U/L Alkaline Phosphatase (45-117) U/L Troponin I (0-0.045) ng/ml NT-Pro-B Natriuret Pep (0-900) pg/ml Total Protein (6.4-8.2) gm/dl Albumin (3.4-5.0) gm/dl Globulin (2.5-4.0) gm/dl Albumin/Globulin Ratio (0.9-2) Lipase (73-393) U/L TSH (0.300-4.500) uIu/ml Urine Color Urine Appearance (Clear) Urine pH (4.5-7.5) Ur Specific [place] (1.000-1.030) Urine Protein (Negative) Urine Glucose (UA) (Negative) Urine Ketones (Negative) Urine Blood (Negative) Urine Nitrite (Negative) Urine Bilirubin (Negative) Urine Urobilinogen (Negative) Ur Leukocyte Esterase (Negative) Nasal Screen MRSA (PCR) (Negative) Influenza Type A (PCR) (Neg) Influenza Type B (PCR) (Neg) 11/19/18 11/19/18 11/19/18 Range/Units 07:48 11:11 11:12 WBC (4.8-10.8) K/uL RBC (4.2-5.4) M/uL Hgb (12.0-16.0) g/dL Hct (37-47) % MCV (80-100) fL MCH (25-34) pg MCHC (32-36) g/dL RDW Std Deviation (36.4-46.3) fL RDW Coeff of Shant (11.5-14.5) % Plt Count (130-400) K/uL MPV (7.4-10.4) fL Immature Gran % (Auto) % Neut % (Auto) % Lymph % (Auto) % [place] % (Auto) % Eos % (Auto) % Baso % (Auto) % Immature Gran # (Auto) (0.00-0.02) K/uL Neut # (Auto) (1.4-6.5) K/uL Lymph # (Auto) (1.2-3.4) K/uL [place] # (Auto) (0.11-0.59) K/uL Eos # (Auto) (0-0.5) K/uL Baso # (Auto) (0-0.2) K/uL Sodium (136-145) mmol/L Potassium (3.5-5.1) mmol/L Chloride (98-107) mmol/L Carbon Dioxide (21-32) mmol/L Anion Gap (3-11) BUN (7-18) mg/dl Creatinine (0.6-1.2) mg/dl Est Cr Clr Drug Dosing ml/min Est GFR ( Amer) Est GFR (Non-Af Amer) BUN/Creatinine Ratio (10-20) Glucose (70-99) mg/dl POC Glucose 288 H 358 H* 384 H* (70-99) Calcium (8.5-10.1) mg/dl Magnesium (1.8-2.4) mg/dl Total Bilirubin (0.2-1) mg/dl AST (15-37) U/L ALT (12-78) U/L Alkaline Phosphatase (45-117) U/L Troponin I (0-0.045) ng/ml NT-Pro-B Natriuret Pep (0-900) pg/ml Total Protein (6.4-8.2) gm/dl Albumin (3.4-5.0) gm/dl Globulin (2.5-4.0) gm/dl Albumin/Globulin Ratio (0.9-2) Lipase (73-393) U/L TSH (0.300-4.500) uIu/ml Urine Color Urine Appearance (Clear) Urine pH (4.5-7.5) Ur Specific [place] (1.000-1.030) Urine Protein (Negative) Urine Glucose (UA) (Negative) Urine Ketones (Negative) Urine Blood (Negative) Urine Nitrite (Negative) Urine Bilirubin (Negative) Urine Urobilinogen (Negative) Ur Leukocyte Esterase (Negative) Nasal Screen MRSA (PCR) (Negative) Influenza Type A (PCR) (Neg) Influenza Type B (PCR) (Neg) 11/19/18 11/19/18 11/19/18 Range/Units 16:49 19:20 20:51 WBC (4.8-10.8) K/uL RBC (4.2-5.4) M/uL Hgb (12.0-16.0) g/dL Hct (37-47) % MCV (80-100) fL MCH (25-34) pg MCHC (32-36) g/dL RDW Std Deviation (36.4-46.3) fL RDW Coeff of Shant (11.5-14.5) % Plt Count (130-400) K/uL MPV (7.4-10.4) fL Immature Gran % (Auto) % Neut % (Auto) % Lymph % (Auto) % [place] % (Auto) % Eos % (Auto) % Baso % (Auto) % Immature Gran # (Auto) (0.00-0.02) K/uL Neut # (Auto) (1.4-6.5) K/uL Lymph # (Auto) (1.2-3.4) K/uL [place] # (Auto) (0.11-0.59) K/uL Eos # (Auto) (0-0.5) K/uL Baso # (Auto) (0-0.2) K/uL Sodium (136-145) mmol/L Potassium (3.5-5.1) mmol/L Chloride (98-107) mmol/L Carbon Dioxide (21-32) mmol/L Anion Gap (3-11) BUN (7-18) mg/dl Creatinine (0.6-1.2) mg/dl Est Cr Clr Drug Dosing ml/min Est GFR ( Amer) Est GFR (Non-Af Amer) BUN/Creatinine Ratio (10-20) Glucose (70-99) mg/dl POC Glucose 261 H 315 H 346 H (70-99) Calcium (8.5-10.1) mg/dl Magnesium (1.8-2.4) mg/dl Total Bilirubin (0.2-1) mg/dl AST (15-37) U/L ALT (12-78) U/L Alkaline Phosphatase (45-117) U/L Troponin I (0-0.045) ng/ml NT-Pro-B Natriuret Pep (0-900) pg/ml Total Protein (6.4-8.2) gm/dl Albumin (3.4-5.0) gm/dl Globulin (2.5-4.0) gm/dl Albumin/Globulin Ratio (0.9-2) Lipase (73-393) U/L TSH (0.300-4.500) uIu/ml Urine Color Urine Appearance (Clear) Urine pH (4.5-7.5) Ur Specific [place] (1.000-1.030) Urine Protein (Negative) Urine Glucose (UA) (Negative) Urine Ketones (Negative) Urine Blood (Negative) Urine Nitrite (Negative) Urine Bilirubin (Negative) Urine Urobilinogen (Negative) Ur Leukocyte Esterase (Negative) Nasal Screen MRSA (PCR) (Negative) Influenza Type A (PCR) (Neg) Influenza Type B (PCR) (Neg) Imaging Data Radiologist's Impression: Radiology results as stated below per my review and the radiologist's interpretation: XR chest 1V portable FINDINGS: Cardiac silhouette moderately enlarged. Pulmonary vascular prominence. Mild bronchial wall cuffing. No other focal opacity. No large effusion or pneumothorax. Degenerative changes of the thoracic spine. IMPRESSION: 1. Cardiomegaly with volume overload and early congestive change. No sonam pulmonary edema. Electronically signed by: Tico Adan M.D. 11/17/2018 4:42 PM ECG Data Attestation: I personally reviewed and interpreted this ECG as follows: Indication: SOB/dyspnea Rate (beats per minute): 66 Rhythm: sinus rhythm Findings: no PAC, no PVC, no ST depression and no ST elevation Additional Comments: Normal axis, normal intervals. Blood Pressure Blood Pressure Findings: Elevated blood pressure Blood Pressure Disposition: further management by hospitalist MDM Narrative Pt here ill appearing. Most concerned about her increased sob. Pt with what she states is a normal exacerbation of her chronic back pain as she is due for another injection. No sx to suggest cauda equina. I do not suspect epidural abscess or hematoma, I do not suspect discitis. No evidence of pneumonia, effusion, or pulmonary edema on cxr. No evidence of ACS contributing to sob. No evidence of bacteremia/sepsis. Pt here denied any improvement with nebs, magnesium, and steroids. While pt does have oxygen she uses at night, she doesn't routinely need oxygen during the day. Pt with hypoxia noted with exertion, however recovers once at rest again. Discussed with pt close f/u as an outpt vs additional impatient evaluation and mgmt. Pt states she is uncomfortable going home at this time as she doesn't feel improved. Case discussed with hospitalist for additional evaluation and mgmt. Impression & Plan COPD exacerbation, Chronic back pain, Sciatica, Hypomagnesemia Discharge Plan Visit Data *Final* Discharge Date/Time: 11/18/18 00:07 Chief Complaint: Leg Injury/Pain Stated Complaint: SOB, CONGESTION, L LEG NUMBNESS ED Provider: Kendy Gage Discharge Problem: COPD exacerbation, Chronic back pain, Sciatica, Hypomagnesemia Patient Disposition: Admitted As Inpatient Discharge Instructions Interventions: ED Discharge Assessment Last Done: 11/18/18 00:07 Discharge Problem: Chronic back pain Qualifiers: Back pain location: low back pain Back pain laterality: bilateral Sciatica presence: with sciatica Sciatica laterality: sciatica laterality unspecified Qualified Code(s): M54.40 - Lumbago with sciatica, unspecified side Sciatica Qualifiers: Laterality: bilateral Qualified Code(s): M54.31 - Sciatica, right side The scribe's documentation has been prepared under my direction and personally reviewed by me in its entirety. I confirm that the note above accurately reflects all work, treatment, procedures, and medical decision making performed by me.
[2018-11-17 21:49] LABS: Influenza A virus by PCR Neg for Influ A (Neg); Influenza B virus by PCR Neg for Influ B (Neg)
--- NOTE | 2018-11-17 23:32 | History & Physical Report ---
Date of Service November 17, 2018 Assessment & Plan (1) COPD exacerbation: Admit to medical telemetry. Solu-Medrol 40 mg IV every 8 hours. Ceftriaxone 1 g IV every 24 hours. Levofloxacin 500 mg IV daily. Duonebs every 4 hours while awake and every 2 hours when necessary. Sputum Gram stain and culture. Guaifenesin extended release 600 mg p.o. twice daily. Continue Singulair 10 mg daily. Present on Admission?: Yes (2) Lumbar spinal stenosis: Lumbar spinal stenosis/bilateral lumbar radicular pain/restless leg syndrome-- Continue gabapentin and Mirapex. Present on Admission?: Yes (3) Chronic radicular lumbar pain: As above. Will have K pad available if needed. Present on Admission?: Yes (4) HTN (hypertension): Continue amlodipine with hold parameters. Present on Admission?: Yes (5) Hyperlipidemia: Continue atorvastatin 10 mg daily. Present on Admission?: Yes (6) Restless leg syndrome: As above. Present on Admission?: Yes (7) GERD (gastroesophageal reflux disease): Continue pantoprazole 40 mg p.o. twice daily. If unable to keep up with magnesium replacement, may need to decrease dosing or split dosing with an H2 antagonist. Present on Admission?: Yes (8) Bladder spasm: Continue oxybutynin 5 mg daily Present on Admission?: Yes History of Present Illness Chief Complaint: The patient presents to the emergency department with primary complaint of shortness of breath, cough productive of yellowish green sputum, fever and chills, with sore throat and headache. Primary Care Provider: Bismark Ronquillo MD The patient is a 68-year-old female who presents to the emergency department primary complaint of respiratory symptoms of shortness of breath, cough productive of yellowish-green sputum, fevers and chills with headache and sore throat worsening over the past week. She chronically wears 3 L of oxygen at nighttime, and has not adjusted the setting. She has not had any recent travels or sick exposures that she is aware of. She does also reports bilateral hip pain radiating down the back of both legs, for which she is receiving injections for spinal stenosis over the past year. She reports her last injection was 4 months ago. This is an ongoing pain. Allergies Allergy/AdvReac Type Severity Reaction Status Date / Time cetirizine Allergy Intermediate RASH Verified 11/17/18 17:12 diphenhydramine AdvReac Mild SHAKEY, Verified 11/17/18 17:12 DIZZY, DROWSY metformin AdvReac Unknown gi upset Verified 11/17/18 17:12 Home Medications Home Medications Medication Instructions Recorded Confirmed Type acetaminophen 500 mg tablet 1,000 mg PO ONCE PRN tab 04/14/18 11/17/18 History amlodipine 10 mg tablet 10 mg PO DAILY 04/14/18 11/17/18 History atorvastatin 10 mg tablet 10 mg PO DAILY 04/14/18 11/17/18 History celecoxib 100 mg capsule 100 mg PO BID 04/14/18 11/17/18 History gabapentin 300 mg capsule 300 mg PO BID 04/14/18 11/17/18 History gabapentin 300 mg capsule 900 mg PO .QHS cap 04/14/18 11/17/18 History montelukast 10 mg tablet 10 mg PO QPM 04/14/18 11/17/18 History multivitamin,tx-minerals capsule 1 cap PO DAILY 04/14/18 11/17/18 History pantoprazole 40 mg tablet,delayed 40 mg PO BID 04/14/18 11/17/18 History release cholecalciferol (vitamin D3) 1,000 1,000 units PO DAILY 07/19/18 11/17/18 History unit capsule lidocaine 5 % topical ointment 1 appln TOP BID 07/19/18 11/17/18 History pramipexole 0.5 mg tablet 0.5 mg PO QPM 07/19/18 11/17/18 History ascorbate calcium-bioflavonoid 1 tab PO DAILY 11/17/18 11/17/18 History [Brit-C with Bioflavonoids] ascorbic acid (vitamin C) [Vitamin 0 mg PO DAILY 11/17/18 11/17/18 History C] oxybutynin chloride 5 mg PO DAILY 11/17/18 11/17/18 History Past Med/Surg History Social History Preferred Language: Lithuanian Communication Ability: Effective Cardiology Specialist Required: No Beliefs That Will Affect Care: None marital status: Current Living Situation: Alone Feels Safe at Home: Yes Safety Concerns: Feels Safe At This Time Smoking Status: Never smoker Hx Alcohol Use: Yes Hx Substance Use: No Review of Systems The patient denies palpitations, nausea, vomiting, diarrhea , constipation, abdominal pain, pelvic pain, blood in urine or stool, dysuria, urinary frequency or urgency, lightheadedness, dizziness, headache, memory loss, loss of consciousness, rash, abnormal bruising or bleeding, imbalance, focal weakness, numbness or tingling in arms, neck pain, or night sweats. The review of systems is otherwise negative other than for that already noted above, and at least 10 systems have been reviewed. Physical Exam Vital Signs (Past 24 Hours): Last Vital Signs Temp 36.7 C 11/17/18 15:28 Pulse 86 11/17/18 22:59 Resp 22 11/17/18 22:59 BP 147/63 H 11/17/18 22:59 Pulse Ox 93 11/17/18 22:59 Physical Exam: The patient is awake, alert and oriented 3, well developed and well nourished, normocephalic and atraumatic, lying in bed and in no acute distress. HEENT--PERRL, EOMI, mucous membranes and oropharynx normal. Neck--supple. No JVD. No bruits. Thyroid normal, trachea midline, no adenopathy. Heart--normal S1 and S2. No murmurs, rubs or gallops. Lungs--coarse breath sounds bilaterally with scattered wheezes. Abdomen--normal bowel sounds and soft. Nontender. Nondistended. Obese Extremities--no cyanosis or clubbing. No edema. There are good distal pulses b/l. Dermatologic--normal skin turgor, normal color, no abnormal lymph nodes, no rash. Neurologic--cranial nerves II through XII grossly intact. Rheumatologic--normal range of motion. Psychiatric--normal affect. Results & Data Laboratory Results Laboratory Results WBC 11.30 K/uL (4.8-10.8) H 11/17/18 16:36 RBC 4.10 M/uL (4.2-5.4) L 11/17/18 16:36 Hgb 13.2 g/dL (12.0-16.0) 11/17/18 16:36 Hct 39.7 % (37-47) 11/17/18 16:36 MCV 96.8 fL (80-100) 11/17/18 16:36 MCH 32.2 pg (25-34) 11/17/18 16:36 MCHC 33.2 g/dL (32-36) 11/17/18 16:36 RDW Std Deviation 45.5 fL (36.4-46.3) 11/17/18 16:36 RDW Coeff of Shant 12.9 % (11.5-14.5) 11/17/18 16:36 Plt Count 211 K/uL (130-400) 11/17/18 16:36 MPV 9.9 fL (7.4-10.4) 11/17/18 16:36 Immature Gran % (Auto) 0.3 % 11/17/18 16:36 Neut % (Auto) 64.5 % 11/17/18 16:36 Lymph % (Auto) 24.5 % 11/17/18 16:36 [place] % (Auto) 8.7 % 11/17/18 16:36 Eos % (Auto) 1.8 % 11/17/18 16:36 Baso % (Auto) 0.2 % 11/17/18 16:36 Immature Gran # (Auto) 0.03 K/uL (0.00-0.02) H 11/17/18 16:36 Neut # (Auto) 7.30 K/uL (1.4-6.5) H 11/17/18 16:36 Lymph # (Auto) 2.77 K/uL (1.2-3.4) 11/17/18 16:36 [place] # (Auto) 0.98 K/uL (0.11-0.59) H 11/17/18 16:36 Eos # (Auto) 0.20 K/uL (0-0.5) 11/17/18 16:36 Baso # (Auto) 0.02 K/uL (0-0.2) 11/17/18 16:36 Sodium 140 mmol/L (136-145) 11/17/18 16:36 Potassium 3.9 mmol/L (3.5-5.1) 11/17/18 16:36 Chloride 102 mmol/L (98-107) 11/17/18 16:36 Carbon Dioxide 33 mmol/L (21-32) H 11/17/18 16:36 Anion Gap 5.0 (3-11) 11/17/18 16:36 BUN 15 mg/dl (7-18) 11/17/18 16:36 Creatinine 0.81 mg/dl (0.6-1.2) 11/17/18 16:36 Est Cr Clr Drug Dosing 94.1 ml/min 11/17/18 16:36 Est GFR ( Amer) 87.7 11/17/18 16:36 Est GFR (Non-Af Amer) 75.7 11/17/18 16:36 BUN/Creatinine Ratio 18.5 (10-20) 11/17/18 16:36 Glucose 200 mg/dl (70-99) H 11/17/18 16:36 Calcium 8.7 mg/dl (8.5-10.1) 11/17/18 16:36 Magnesium 1.7 mg/dl (1.8-2.4) L 11/17/18 16:36 Total Bilirubin 0.3 mg/dl (0.2-1) 11/17/18 16:36 AST 27 U/L (15-37) 11/17/18 16:36 ALT 38 U/L (12-78) 11/17/18 16:36 Alkaline Phosphatase 105 U/L (45-117) 11/17/18 16:36 Troponin I < 0.015 ng/ml (0-0.045) 11/17/18 16:36 NT-Pro-B Natriuret Pep 188 pg/ml (0-900) 11/17/18 16:36 Total Protein 7.7 gm/dl (6.4-8.2) 11/17/18 16:36 Albumin 3.3 gm/dl (3.4-5.0) L 11/17/18 16:36 Globulin 4.4 gm/dl (2.5-4.0) H 11/17/18 16:36 Albumin/Globulin Ratio 0.7 (0.9-2) L 11/17/18 16:36 Lipase 61 U/L (73-393) L 11/17/18 16:36 TSH 1.040 uIu/ml (0.300-4.500) 11/17/18 16:36 Urine Color Dark Yellow 11/17/18 18:30 Urine Appearance Clear (Clear) 11/17/18 18:30 Urine pH 5.0 (4.5-7.5) 11/17/18 18:30 Ur Specific [place] 1.031 (1.000-1.030) H 11/17/18 18:30 Urine Protein Negative (Negative) 11/17/18 18:30 Urine Glucose (UA) 2+ (Negative) H 11/17/18 18:30 Urine Ketones Trace (Negative) H 11/17/18 18:30 Urine Blood Negative (Negative) 11/17/18 18:30 Urine Nitrite Negative (Negative) 11/17/18 18:30 Urine Bilirubin Negative (Negative) 11/17/18 18:30 Urine Urobilinogen Negative (Negative) 11/17/18 18:30 Ur Leukocyte Esterase Negative (Negative) 11/17/18 18:30 Nasal Screen MRSA (PCR) Negative (Negative) 11/18/18 01:00 Influenza Type A (PCR) Neg for Influ A (Neg) 11/17/18 16:48 Influenza Type B (PCR) Neg for Influ B (Neg) 11/17/18 16:48 Diagnostic Findings [place], [place] [phone] XRay Report Patient: SHONDA KAUR CAdmit Date: 11/17/18 MR#: [id number]: [address] Acct ID:[id number] [address] Date: 1950[facility] Zip: [place] [address] Age: 68Location: ED Sex: F Room/Bed: Att Phy: Diagnosis: SOB, CONGESTION, L LEG NUMBNESS Jesica Phy: Bismark Ronquillo MDService Date: 11/17/18 Fam Phy: Interpreting Phy: Tico Adan MD Admit Phy: Ordering Phy: Kendy Gage DO cc: ~ XR chest 1V portable CLINICAL HISTORY: 68 years-old Female presenting with sob. TECHNIQUE: Portable upright AP view of the chest was obtained. COMPARISON: Chest CT from 10/22/2017. FINDINGS: Cardiac silhouette moderately enlarged. Pulmonary vascular prominence. Mild bronchial wall cuffing. No other focal opacity. No large effusion or pneumothorax. Degenerative changes of the thoracic spine. IMPRESSION: 1. Cardiomegaly with volume overload and early congestive change. No sonam pulmonary edema. Electronically signed by: Tico Adan M.D. 11/17/2018 4:42 PM Dictated: 11/17/18 1641 Transcribed: 11/17/18 1641 Code Status & VTE Plan Code Status Full code VTE Prophylaxis Plan VTE Prophylaxis will be ordered: Yes
[2018-11-18] MEDS ORDERED: ONDANSETRON INJ 2 MG/ML 2 ML VIAL IV PRN (00:45)
[2018-11-18] MEDS ORDERED: POLYETHYLENE (MIRALAX) 17 GM PACK PO PRN (00:45)
[2018-11-18] MEDS ORDERED: ALUMINUM/MAGNESIUM SUSP 30 ML UDC PO PRN (00:45)
[2018-11-18] MEDS ORDERED: MAGNESIUM HYDROXIDE SUSP 30 ML UDC PO PRN (00:45)
[2018-11-18] MEDS: PANTOprazole 40 MG TAB PO SCH ×3 (01:26→21:03)
[2018-11-18] MEDS: GABAPENTIN 300 MG CAP PO SCH ×4 (01:26→21:04)
[2018-11-18] MEDS: methylPREDNISolone 40 MG in SYRINGE 0 ML IV SCH ×3 (04:37→19:57)
[2018-11-18] MEDS: ALBUT/IPRATROP 3MG/0.5MG NEB 3 ML VIAL NEB SCH ×4 (07:35→19:47)
[2018-11-18] MEDS: ATORVASTATIN 10 MG TAB PO SCH (08:58)
[2018-11-18] MEDS ORDERED: cefTRIAXone SODIUM 1,000 MG in DEXTROSE 5% 50 ML IV SCH (09:00)
[2018-11-18] MEDS: CEROVITE ADV FORMULA TAB PO SCH (09:00)
[2018-11-18] MEDS ORDERED: NON-FORMULARY MEDICATION (Ascorbate Calcium-Bioflavonoid [Ester-C With Bioflavonoids] 1 TA PO SCH (09:00)
[2018-11-18] MEDS: OXYBUTYNIN CHLORIDE XL 5 MG TABCR PO SCH (09:00)
[2018-11-18] MEDS: AMLODIPINE BESYLATE 5 MG TAB PO SCH (09:03)
[2018-11-18] MEDS: CHOLECALCIFEROL 1,000 UNITS TAB PO SCH (09:05)
[2018-11-18] MEDS: HEPARIN SOD 5,000 UNIT/0.5 ML VIAL SQ SCH ×2 (09:07→21:08)
--- NOTE | 2018-11-18 10:48 | Hospitalist Progress Note ---
Date of Service November 18, 2018 Assessment & Plan (1) Acute hypoxemic respiratory failure: due to COPD exacerbation still on 2L NC, no distress taper as allows (2) COPD exacerbation: can transfer off tele, leave on medical floor Solu-Medrol 40 mg IV every 8 hours continue this dose for now, taper tomorrow if she continues to improve continue Levofloxacin 500 mg IV daily, will stop Rocephin Duonebs every 4 hours while awake and every 2 hours when necessary work on getting a home nebulizer for patient Sputum Gram stain showed many PMN, several bacteria types, culture pending Guaifenesin extended release 600 mg p.o. twice daily. Continue Singulair 10 mg daily. (3) Lumbar spinal stenosis: Lumbar spinal stenosis/bilateral lumbar radicular pain/restless leg syndrome-- Continue gabapentin and Mirapex. (4) Chronic radicular lumbar pain: As above. Will have K pad available if needed. (5) HTN (hypertension): Continue amlodipine with hold parameters. BP stable this morning (6) Hyperlipidemia: Continue atorvastatin 10 mg daily. (7) Restless leg syndrome: As above. (8) GERD (gastroesophageal reflux disease): Continue pantoprazole 40 mg p.o. twice daily. If unable to keep up with magnesium replacement, may need to decrease dosing or split dosing with an H2 antagonist. (9) Bladder spasm: Continue oxybutynin 5 mg daily Subjective patient feeling much better today, breathing easier coughing a lot, yellow sputum, no blood no chest pain appetite is okay reviewed labs from admission, everything was stable reviewed imaging Review of Systems All systems reviewed & are unremarkable except as noted in HPI & below Constitutional: + fatigue and + weakness; no fever and no sweats Respiratory: + cough, + dyspnea, + dyspnea on exertion and + sputum production Cardiovascular: no chest pain and no edema Gastrointestinal: no abdominal pain, no nausea, no vomiting, no constipation and no diarrhea/loose stools Physical Exam Vital Signs (Past 24 Hours): Last Vital Signs Temp 37.0 C 11/18/18 07:31 Pulse 88 11/18/18 07:36 Resp 18 11/18/18 07:36 BP 111/60 11/18/18 07:31 Pulse Ox 94 11/18/18 07:36 Constitutional: WD/WN, vitals as above + obese Eyes: PERRL, conjunctivae normal, anicteric sclerae ENMT: external ear and nose normal, oropharynx normal Neck: trachea midline, no thyromegaly Respiratory: normal respiratory effort; no respiratory distress Auscultation: + wheezes (faint, end expiratory bilaterally) Cardiovascular: RRR, no murmur, no edema Gastrointestinal (Abdomen): normal bowel sounds, soft, nontender, no hepatosplenomegaly Musculoskeletal: no cyanosis or clubbing, extremities motor strength 5/5 Skin: no rashes, warm and dry Neurologic: patellar DTR's 2+ bilat, sensation intact and PERRL, EOMI, accommodation nl, no face palsy, no dysarthria Psychiatric: A+Ox3, euthymic affect Lymphatic: no cervical or axillary lymphadenopathy Results & Data Laboratory Results Laboratory Results - last 24 hr 11/17/18 11/17/18 11/17/18 16:36 16:36 16:48 WBC 11.30 H RBC 4.10 L Hgb 13.2 Hct 39.7 MCV 96.8 MCH 32.2 MCHC 33.2 RDW Std Deviation 45.5 RDW Coeff of Shant 12.9 Plt Count 211 MPV 9.9 Immature Gran % (Auto) 0.3 Neut % (Auto) 64.5 Lymph % (Auto) 24.5 [place] % (Auto) 8.7 Eos % (Auto) 1.8 Baso % (Auto) 0.2 Immature Gran # (Auto) 0.03 H Neut # (Auto) 7.30 H Lymph # (Auto) 2.77 [place] # (Auto) 0.98 H Eos # (Auto) 0.20 Baso # (Auto) 0.02 Sodium 140 Potassium 3.9 Chloride 102 Carbon Dioxide 33 H Anion Gap 5.0 BUN 15 Creatinine 0.81 Est Cr Clr Drug Dosing 94.1 Est GFR ( Amer) 87.7 Est GFR (Non-Af Amer) 75.7 BUN/Creatinine Ratio 18.5 Glucose 200 H POC Glucose Calcium 8.7 Magnesium 1.7 L Total Bilirubin 0.3 AST 27 ALT 38 Alkaline Phosphatase 105 Troponin I < 0.015 NT-Pro-B Natriuret Pep 188 Total Protein 7.7 Albumin 3.3 L Globulin 4.4 H Albumin/Globulin Ratio 0.7 L Lipase 61 L TSH 1.040 Urine Color Urine Appearance Urine pH Ur Specific [place] Urine Protein Urine Glucose (UA) Urine Ketones Urine Blood Urine Nitrite Urine Bilirubin Urine Urobilinogen Ur Leukocyte Esterase Nasal Screen MRSA (PCR) Influenza Type A (PCR) Neg for Influ A Influenza Type B (PCR) Neg for Influ B 11/17/18 11/18/18 11/18/18 18:30 01:00 07:56 WBC RBC Hgb Hct MCV MCH MCHC RDW Std Deviation RDW Coeff of Shant Plt Count MPV Immature Gran % (Auto) Neut % (Auto) Lymph % (Auto) [place] % (Auto) Eos % (Auto) Baso % (Auto) Immature Gran # (Auto) Neut # (Auto) Lymph # (Auto) [place] # (Auto) Eos # (Auto) Baso # (Auto) Sodium Potassium Chloride Carbon Dioxide Anion Gap BUN Creatinine Est Cr Clr Drug Dosing Est GFR ( Amer) Est GFR (Non-Af Amer) BUN/Creatinine Ratio Glucose POC Glucose 288 H Calcium Magnesium Total Bilirubin AST ALT Alkaline Phosphatase Troponin I NT-Pro-B Natriuret Pep Total Protein Albumin Globulin Albumin/Globulin Ratio Lipase TSH Urine Color Dark Yellow Urine Appearance Clear Urine pH 5.0 Ur Specific [place] 1.031 H Urine Protein Negative Urine Glucose (UA) 2+ H Urine Ketones Trace H Urine Blood Negative Urine Nitrite Negative Urine Bilirubin Negative Urine Urobilinogen Negative Ur Leukocyte Esterase Negative Nasal Screen MRSA (PCR) Negative Influenza Type A (PCR) Influenza Type B (PCR) Medications Administered Current Inpatient Medications Acetaminophen (Tylenol) 650 mg PO Q4H PRN PRN Reason: Pain or Fever Stop: 12/18/18 00:44 Al Hydrox/Mg Hydrox/Simethicone (Maalox) 15 ml PO Q4H PRN PRN Reason: Dyspepsia Stop: 12/18/18 00:44 Albuterol (Duoneb) 3 ml NEB QIDR [facility] Stop: 12/18/18 07:59 Last Admin: 11/18/18 07:35 Dose: 3 ml Documented by: Amlodipine Besylate (Norvasc) 10 mg PO DAILY [facility] Stop: 12/18/18 08:59 Last Admin: 11/18/18 09:03 Dose: 10 mg Documented by: Atorvastatin Calcium (Lipitor) 10 mg PO DAILY [facility] Stop: 12/18/18 08:59 Last Admin: 11/18/18 08:58 Dose: Not Given Documented by: Gabapentin (Neurontin) 300 mg PO BID@0900,1400 [facility]EDE Stop: 12/18/18 08:59 Last Admin: 11/18/18 09:02 Dose: 300 mg Documented by: Gabapentin (Neurontin) 900 mg PO HS [facility]EDE Stop: 12/18/18 00:44 Last Admin: 11/18/18 01:26 Dose: 900 mg Documented by: Heparin Sodium (Porcine) (Heparin Sodium (Porcine)) 5,000 units SQ Q12 DEDE Stop: 12/18/18 08:59 Last Admin: 11/18/18 09:07 Dose: 5,000 units Documented by: Levofloxacin/Dextrose (Levaquin/D5w) 500 mg in 100 mls @ 100 mls/hr IV Q24H DEDE Stop: 11/23/18 21:59 Methylprednisolone 40 mg/ (Syringe) 0.64 mls @ 1.5 mls/min IV Q8H [facility]EDE Stop: 12/18/18 03:59 Last Admin: 11/18/18 04:37 Dose: 1.5 mls/min Documented by: Magnesium Hydroxide (Milk Of Magnesia) 30 ml PO Q12H PRN PRN Reason: Constipation Stop: 12/18/18 00:44 Montelukast Sodium (Singulair) 10 mg PO QPM DEDE Stop: 12/18/18 20:59 Multivitamins/Minerals (Multivitamin W/ Minerals Tab) 1 tab PO DAILY DEDE Stop: 12/18/18 08:59 Last Admin: 11/18/18 09:00 Dose: 1 tab Documented by: Ondansetron HCl (Zofran) 4 mg IV Q6H PRN PRN Reason: Nausea Stop: 12/18/18 00:44 Oxybutynin Chloride (Ditropan Xl) 5 mg PO DAILY DEDE Stop: 12/18/18 08:59 Last Admin: 11/18/18 09:00 Dose: 5 mg Documented by: Pantoprazole Sodium (Protonix) 40 mg PO BID DEDE Stop: 12/18/18 00:44 Last Admin: 11/18/18 09:03 Dose: 40 mg Documented by: Polyethylene Glycol (Miralax Powder Packet) 17 gm PO DAILY PRN PRN Reason: Constipation Stop: 12/18/18 00:44 Pramipexole Dihydrochloride (Mirapex) 0.5 mg PO QPM DEDE Stop: 12/18/18 20:59 Vitamin D (Vitamin D3) 1,000 units PO DAILY DEDE Stop: 12/18/18 08:59 Last Admin: 11/18/18 09:05 Dose: 1,000 units Documented by:
[2018-11-18] MEDS ORDERED: INSULIN GLARGINE SOLOSTAR 100 UNITS/ML 3 ML PEN SC ONE (12:45)
[2018-11-18] MEDS: INSULIN ASPART 100 UNITS/ML 3 ML PEN SC SCH ×3 (13:59→21:12)
[2018-11-18] MEDS: PRAMIPEXOLE DIHYDROCHLO 0.5 MG TAB PO SCH (21:06)
[2018-11-18] MEDS: LEVOFLOXACIN/D5W 500 MG/100 ML BAG IV SCH (21:07)
[2018-11-18] MEDS: MONTELUKAST SODIUM 10 MG TABLET PO SCH (21:07)
[2018-11-19] MEDS: methylPREDNISolone 40 MG in SYRINGE 0 ML IV SCH (04:17)
[2018-11-19] MEDS: ACETAMINOPHEN 325 MG TAB PO PRN (04:23)
[2018-11-19] MEDS: ALBUT/IPRATROP 3MG/0.5MG NEB 3 ML VIAL NEB SCH ×4 (07:03→19:32)
[2018-11-19] MEDS: DULOXETINE HCL 20 MG CAP PO SCH (08:56)
[2018-11-19] MEDS: ATORVASTATIN 10 MG TAB PO SCH (08:57)
[2018-11-19] MEDS: CEROVITE ADV FORMULA TAB PO SCH (08:57)
[2018-11-19] MEDS: OXYBUTYNIN CHLORIDE XL 5 MG TABCR PO SCH (08:57)
[2018-11-19] MEDS: PANTOprazole 40 MG TAB PO SCH ×2 (08:58→21:24)
[2018-11-19] MEDS: AMLODIPINE BESYLATE 5 MG TAB PO SCH (08:58)
[2018-11-19] MEDS: GABAPENTIN 300 MG CAP PO SCH ×3 (08:58→21:24)
[2018-11-19] MEDS: CHOLECALCIFEROL 1,000 UNITS TAB PO SCH (08:59)
[2018-11-19] MEDS: INSULIN ASPART 100 UNITS/ML 3 ML PEN SC SCH ×4 (08:59→21:25)
[2018-11-19] MEDS: HEPARIN SOD 5,000 UNIT/0.5 ML VIAL SQ SCH ×2 (09:00→21:23)
[2018-11-19] MEDS: predniSONE 50 MG TAB PO SCH (09:08)
[2018-11-19] MEDS ORDERED: FUROSEMIDE 40 MG TAB PO ONE (10:06)
--- NOTE | 2018-11-19 10:14 | Hospitalist Progress Note ---
Date of Service November 19, 2018 Assessment & Plan (1) Acute hypoxemic respiratory failure: due to COPD exacerbation titrated off of oxygen this morning, lungs clear, breathing stable (2) COPD exacerbation: can transfer off tele, leave on medical floor Solu-Medrol 40 mg IV every 8 hours change to Prednisone 50mg daily starting this morning plan for taper on discharge continue Levofloxacin 500 mg IV daily, will stop Rocephin change to PO on discharge for 7 day course Duonebs every 4 hours while awake and every 2 hours when necessary should ask CM to get home nebulizer Sputum Gram stain showed many PMN, several bacteria types, culture still pending Guaifenesin extended release 600 mg p.o. twice daily. Continue Singulair 10 mg daily. (3) Diabetes mellitus: hyperglycemia, sugars > 300 on steroids d/w patient, she used to be on Metformin but had to stop due to diarrhea use Lantus and Novolog HbA1c is (4) Lumbar spinal stenosis: Lumbar spinal stenosis/bilateral lumbar radicular pain/restless leg syndrome-- Continue gabapentin and Mirapex. uses Ultram PRN as outpatient reviewed prior records, MRI 2016 showed severe canal stenosis hold on repeat imaging as her pain is similar to prior episodes would likely benefit from repeat pain injections as outpatient PT/OT (5) Chronic radicular lumbar pain: As above. Will have K pad available if needed. (6) HTN (hypertension): Continue amlodipine with hold parameters. BP stable this morning (7) Hyperlipidemia: Continue atorvastatin 10 mg daily. (8) Restless leg syndrome: As above. (9) GERD (gastroesophageal reflux disease): Continue pantoprazole 40 mg p.o. twice daily. If unable to keep up with magnesium replacement, may need to decrease dosing or split dosing with an H2 antagonist. (10) Bladder spasm: Continue oxybutynin 5 mg daily (11) Depressive disorder: more issues since losing her 4 months ago several other deaths in her family recently, lots of external stress was on Effexor 150mg BID but was not helping changed to Cymbalta 20mg daily, will likely need titrated up as outpatient Subjective patient breathing better today, titrated off of oxygen having difficult time ambulating due to severe left hip pain radicular pain down to the left foot has a history of spinal stenosis, says that she gets injections, last one was in July 2018 reviewed prior records, MRI Lumbar spine in 2016 showed: 1. Severe central canal stenosis and lateral recesses at L3-L4 due toanterolisthesis with uncovering of the disc, ligamentous hypertrophy and facetarthrosis. 2. Mild to moderate central canal narrowing at L4-L5 and mild central canalnarrowing at L2-L3 also discussed her hyperglycemia, explained that it was due to steroids was pre-diabetic in the past, but sounds like she had DM type II because she was treated with metformin she said she had to stop the Metformin due to diarrhea side effects still awaiting hbA1c from this morning c/p some peripheral edema this morning Review of Systems All systems reviewed & are unremarkable except as noted in HPI & below Constitutional: + weakness Respiratory: + cough, + dyspnea on exertion and + sputum production Cardiovascular: + edema; no chest pain Musculoskeletal: + back pain (lower back) and + radicular pain (left hip, down to knee and sometimes the foot on left) Physical Exam Vital Signs (Past 24 Hours): Last Vital Signs Temp 36.9 C 11/19/18 07:59 Pulse 90 11/19/18 07:59 Resp 16 11/19/18 07:59 BP 109/61 11/19/18 07:59 Pulse Ox 95 11/19/18 07:59 Constitutional: WD/WN, vitals as above + obese Eyes: PERRL, conjunctivae normal, anicteric sclerae ENMT: external ear and nose normal, oropharynx normal Neck: trachea midline, no thyromegaly Respiratory: normal respiratory effort; no respiratory distress Auscultation: lungs clear to auscultation bilaterally; no rhonchi and no wheezes Cardiovascular: RRR, no murmur, no edema Gastrointestinal (Abdomen): normal bowel sounds, soft, nontender, no hepatosplenomegaly Musculoskeletal: no cyanosis or clubbing, extremities motor strength 5/5 Spine: + limited thoraco-lumbar ROM (due to spinal stenosis) Skin: no rashes, warm and dry Neurologic: patellar DTR's 2+ bilat, sensation intact and PERRL, EOMI, accommodation nl, no face palsy, no dysarthria Psychiatric: A+Ox3, euthymic affect Lymphatic: no cervical or axillary lymphadenopathy Results & Data Laboratory Results Laboratory Results - last 24 hr 04/06/19 04/06/19 04/06/19 11:51 16:32 21:11 POC Glucose 304 H 287 H 311 H 11/19/18 07:48 POC Glucose 288 H Medications Administered Current Inpatient Medications Acetaminophen (Tylenol) 650 mg PO Q4H PRN PRN Reason: Pain or Fever Stop: 12/18/18 00:44 Last Admin: 11/19/18 04:23 Dose: 650 mg Documented by: Al Hydrox/Mg Hydrox/Simethicone (Maalox) 15 ml PO Q4H PRN PRN Reason: Dyspepsia Stop: 12/18/18 00:44 Albuterol (Duoneb) 3 ml NEB QIDR [facility] Stop: 12/18/18 07:59 Last Admin: 11/19/18 07:03 Dose: 3 ml Documented by: Amlodipine Besylate (Norvasc) 10 mg PO DAILY [facility] Stop: 12/18/18 08:59 Last Admin: 11/19/18 08:58 Dose: 10 mg Documented by: Atorvastatin Calcium (Lipitor) 10 mg PO DAILY [facility] Stop: 12/18/18 08:59 Last Admin: 11/19/18 08:57 Dose: 10 mg Documented by: Duloxetine HCl (Cymbalta) 20 mg PO QAM [facility] Stop: 12/19/18 08:59 Last Admin: 11/19/18 08:56 Dose: 20 mg Documented by: Gabapentin (Neurontin) 300 mg PO BID@0900,1400 [facility] Stop: 12/18/18 08:59 Last Admin: 11/19/18 08:58 Dose: 300 mg Documented by: Gabapentin (Neurontin) 900 mg PO HS [facility] Stop: 12/18/18 00:44 Last Admin: 11/18/18 21:04 Dose: 900 mg Documented by: Heparin Sodium (Porcine) (Heparin Sodium (Porcine)) 5,000 units SQ Q12 [facility] Stop: 12/18/18 08:59 Last Admin: 11/19/18 09:00 Dose: 5,000 units Documented by: Levofloxacin/Dextrose (Levaquin/D5w) 500 mg in 100 mls @ 100 mls/hr IV Q24H [facility] Stop: 11/23/18 21:59 Last Infusion: 11/18/18 22:37 Dose: Infused Documented by: Insulin Aspart (Novolog Flexpen) 0 units SC ACHS [facility] Stop: 12/18/18 12:29 Last Admin: 11/19/18 08:59 Dose: 9 units Documented by: Magnesium Hydroxide (Milk Of Magnesia) 30 ml PO Q12H PRN PRN Reason: Constipation Stop: 12/18/18 00:44 Montelukast Sodium (Singulair) 10 mg PO QPM [facility] Stop: 12/18/18 20:59 Last Admin: 11/18/18 21:07 Dose: 10 mg Documented by: Multivitamins/Minerals (Multivitamin W/ Minerals Tab) 1 tab PO DAILY [facility] Stop: 12/18/18 08:59 Last Admin: 11/19/18 08:57 Dose: 1 tab Documented by: Ondansetron HCl (Zofran) 4 mg IV Q6H PRN PRN Reason: Nausea Stop: 12/18/18 00:44 Oxybutynin Chloride (Ditropan Xl) 5 mg PO DAILY [facility] Stop: 12/18/18 08:59 Last Admin: 11/19/18 08:57 Dose: 5 mg Documented by: Pantoprazole Sodium (Protonix) 40 mg PO BID [facility] Stop: 12/18/18 00:44 Last Admin: 11/19/18 08:58 Dose: 40 mg Documented by: Polyethylene Glycol (Miralax Powder Packet) 17 gm PO DAILY PRN PRN Reason: Constipation Stop: 12/18/18 00:44 Pramipexole Dihydrochloride (Mirapex) 0.5 mg PO QPM [facility] Stop: 12/18/18 20:59 Last Admin: 11/18/18 21:06 Dose: 0.5 mg Documented by: Prednisone (Prednisone) 50 mg PO QAM [facility] Stop: 12/19/18 08:59 Last Admin: 11/19/18 09:08 Dose: 50 mg Documented by: Vitamin D (Vitamin D3) 1,000 units PO DAILY [facility] Stop: 12/18/18 08:59 Last Admin: 11/19/18 08:59 Dose: 1,000 units Documented by:
[2018-11-19] MEDS ORDERED: PHARMACY GLYCEMIC MGMT CONSULT STA (11:47)
[2018-11-19] MEDS ORDERED: INSULIN GLARGINE SOLOSTAR 100 UNITS/ML 3 ML PEN SC ONE ×2 (12:30)
[2018-11-19] MEDS ORDERED: PHARMACY GLYCEMIC MGMT CONSULT PRN (14:00)
--- NOTE | 2018-11-19 14:43 | Pharmacy Report ---
Pharmacy Glycemic Short Note 2 - Date of Service November 19, 2018 - Glycemic Short BSG Results (Last 24 hours): 11/18/18 11/18/18 11/19/18 16:32 21:11 07:48 POC Glucose 287 H 311 H 288 H 11/19/18 11/19/18 11:11 11:12 POC Glucose 358 H* 384 H* OUTPATIENT ANTIDIABETIC REGIMEN: * None * Adverse reaction reported to Metformin -- GI upset. * Last A1c 7% 10/26/18, updated lab pending. The patient is currently receiving: * Basal insulin: Lantus 10 units SQ x1 on 11/18 * Correctional Insulin: Novolog Correction per scale ACHS Goal Range: Low 120 mg/dL - High 160 mg/dL Correction Factor: 30 mg/dL/unit * Prandial insulin: Per carb ratio of 1 unit per 8 grams CHO consumed ASSESSMENT: * Pt presented to ED with reports of bilateral hip pain, SOB, cough, chills, fever. She was placed on Solu-medrol IV 60mg Q8 for COPD exacerbation. * BSGs have ranged from 280s-390s while on Solu-medrol, transitioned this morning to Prednisone PO. * Pharmacy consulted to manage steroid induced hyperglycemia. * Daily insulin needs are unclear at this time due to poorly controlled hyperglycemia. * Given 39 units total yesterday with BSGs ranging 280s-310s. * Will likely require higher doses of basal insulin to decrease fasting BSGs. * Also higher doses of prandial insulin, especially while on steroids. PLAN FOR INPATIENT GLYCEMIC CONTROL: * Basal insulin * Lantus 35 units SQ x1, will reassess needs in AM. * Will add overnight checks at 00 and 04 in case this dose is not sufficient. * Schedule 55 units NPH (~0.4 units/kg) to be given daily in AM with prednisone. * Bolus insulin * NovoLog per scale ACHS * Goal Range: Low 110 mg/dL - High 140 mg/dL * Correction Factor: 10 mg/dL/unit * Nutritional / Prandial insulin per carb ratio of 1 unit per 4 grams CHO consumed PLAN FOR DISCHARGE: * Could consider an extended release version of metformin in attempt to mitigate GI side effects. * May require SQ insulin while on prednisone taper after discharge. * Further recommendations to follow.
[2018-11-19] MEDS: PRAMIPEXOLE DIHYDROCHLO 0.5 MG TAB PO SCH (21:24)
[2018-11-19] MEDS: MONTELUKAST SODIUM 10 MG TABLET PO SCH (21:24)
[2018-11-19] MEDS: LEVOFLOXACIN/D5W 500 MG/100 ML BAG IV SCH (21:26)
[2018-11-20] MEDS: INSULIN ASPART 100 UNITS/ML 3 ML PEN SC SCH ×6 (00:32→21:02)
[2018-11-20] MEDS: ALBUT/IPRATROP 3MG/0.5MG NEB 3 ML VIAL NEB SCH ×4 (07:22→20:02)
[2018-11-20] MEDS: DULOXETINE HCL 20 MG CAP PO SCH (07:31)
[2018-11-20] MEDS: predniSONE 50 MG TAB PO SCH (07:31)
[2018-11-20] MEDS: ATORVASTATIN 10 MG TAB PO SCH (07:32)
[2018-11-20] MEDS: CEROVITE ADV FORMULA TAB PO SCH (07:32)
[2018-11-20] MEDS: AMLODIPINE BESYLATE 5 MG TAB PO SCH (07:32)
[2018-11-20] MEDS: CHOLECALCIFEROL 1,000 UNITS TAB PO SCH (07:32)
[2018-11-20] MEDS: PANTOprazole 40 MG TAB PO SCH ×2 (07:32→21:00)
[2018-11-20] MEDS: OXYBUTYNIN CHLORIDE XL 5 MG TABCR PO SCH (07:32)
[2018-11-20] MEDS: GABAPENTIN 300 MG CAP PO SCH ×3 (07:32→20:59)
[2018-11-20] MEDS: INSULIN HUMAN NPH SC SCH (07:56)
[2018-11-20] MEDS: HEPARIN SOD 5,000 UNIT/0.5 ML VIAL SQ SCH ×2 (07:56→21:01)
--- NOTE | 2018-11-20 08:23 | Pharmacy Report ---
Pharmacy Glycemic Short Note 2 - Date of Service November 20, 2018 - Glycemic Short BSG Results (Last 24 hours): 11/19/18 11/19/18 11/19/18 11:11 11:12 16:49 POC Glucose 358 H* 384 H* 261 H 11/19/18 11/19/18 11/19/18 19:20 20:51 23:49 POC Glucose 315 H 346 H 344 H 11/20/18 11/20/18 04:25 07:09 POC Glucose 180 H 150 H OUTPATIENT ANTIDIABETIC REGIMEN: * None * Adverse reaction reported to Metformin -- GI upset. * Last A1c 7% 10/26/18, updated lab pending. ASSESSMENT: 11/20 * Ms. Manning received 163 units of insulin yesterday (compared to 39 units the day prior) * Steroids have been tapered to prednisone 50 mg qAM (as of yesterday), with NPH weight-based dosing now on board to reflect this * BSGs have improved significantly overnight; however, I anticipate increases during the day with the once daily prednisone on board * Will hold off on additional basal insulin with Lantus now that Solu-medrol no longer on board. I'm anticipating a TDD ~ 100 units. 11/19 * Pt presented to ED with reports of bilateral hip pain, SOB, cough, chills, fever. She was placed on Solu-medrol IV 60mg Q8 for COPD exacerbation. * BSGs have ranged from 280s-390s while on Solu-medrol, transitioned this mo rning to Prednisone PO. * Pharmacy consulted to manage steroid induced hyperglycemia. * Daily insulin needs are unclear at this time due to poorly controlled hyperglycemia. * Given 39 units total yesterday with BSGs ranging 280s-310s. * Will likely require higher doses of basal insulin to decrease fasting BSGs. * Also higher doses of prandial insulin, especially while on steroids. PLAN FOR INPATIENT GLYCEMIC CONTROL: * Basal insulin * NPH 55 units (~0.4 units/kg) to be given daily in AM with prednisone. * Bolus insulin - no change * NovoLog per scale ACHS * Goal Range: Low 110 mg/dL - High 140 mg/dL * Correction Factor: 10 mg/dL/unit * Nutritional / Prandial insulin per carb ratio of 1 unit per 4 grams CHO consumed PLAN FOR DISCHARGE: * Could consider an extended release version of metformin in attempt to mitigate GI side effects. * May require insulin while on prednisone taper after discharge. * Further recommendations to follow.
[2018-11-20 08:30] LABS: Estimated Average Glucose 171 mg/dl; Hemoglobin A1C 7.6 % (4.5-5.6)
--- NOTE | 2018-11-20 14:07 | Hospitalist Progress Note ---
Date of Service November 20, 2018 Assessment & Plan (1) Acute hypoxemic respiratory failure: due to COPD exacerbation Patient remained on oxygen on 11/19 despite documentation stating otherwise, lungs clear, breathing stable. Patient however is short of breath on ambulation. (2) COPD exacerbation: can transfer off tele, leave on medical floor Was on Solu-Medrol 40 mg IV every 8 hours changed to Prednisone 50mg daily starting this morning plan for taper on discharge continue Levofloxacin 500 mg IV daily, will stop Rocephin change to PO on discharge for 7 day course Duonebs every 4 hours while awake and every 2 hours when necessary should ask CM to get home nebulizer Sputum Gram stain showed many PMN, several bacteria types, culture still pending Guaifenesin extended release 600 mg p.o. twice daily. Continue Singulair 10 mg daily. (3) Diabetes mellitus: hyperglycemia, sugars > 300 on steroids d/w patient, she used to be on Metformin but had to stop due to diarrhea use Lantus and Novolog will restart metformin at discharge. (4) Lumbar spinal stenosis: Lumbar spinal stenosis/bilateral lumbar radicular pain/restless leg syndrome-- Continue gabapentin and Mirapex. uses Ultram PRN as outpatient reviewed prior records, MRI 2016 showed severe canal stenosis hold on repeat imaging as her pain is similar to prior episodes would likely benefit from repeat pain injections as outpatient PT/OT (5) Chronic radicular lumbar pain: As above. Will have K pad available if needed. (6) HTN (hypertension): Continue amlodipine with hold parameters. BP stable this morning (7) Hyperlipidemia: Continue atorvastatin 10 mg daily. (8) Restless leg syndrome: As above. (9) GERD (gastroesophageal reflux disease): Continue pantoprazole 40 mg p.o. twice daily. If unable to keep up with magnesium replacement, may need to decrease dosing or split dosing with an H2 antagonist. (10) Bladder spasm: Continue oxybutynin 5 mg daily (11) Depressive disorder: more issues since losing her 4 months ago several other deaths in her family recently, lots of external stress was on Effexor 150mg BID but was not helping changed to Cymbalta 20mg daily, will likely need titrated up as outpatient Spent 35 minutes in management of patient. Subjective Patient remained on oxygen on 11/19. Just removed oxygen at rest today (4/8). Ambulated the halls, but was SOB and required oxygen. Patient is also having difficult time ambulating due to severe left hip pain. She continues to have radicular pain down to the left foot. She has a history of spinal stenosis, says that she gets injections, last one was in July 2018 Reviewed prior records, MRI Lumbar spine in 2016 showed: 1. Severe central canal stenosis and lateral recesses at L3-L4 due toanterolisthesis with uncovering of the disc, ligamentous hypertrophy and facetarthrosis. 2. Mild to moderate central canal narrowing at L4-L5 and mild central canalnarrowing at L2-L3 Pastient states that she is open to use metformin extended release at bedtime after dinner. c/p some peripheral edema this morning Constitutional: + weakness Respiratory: + cough, + dyspnea on exertion and + sputum production Cardiovascular: + edema; no chest pain Musculoskeletal: + back pain (lower back) and + radicular pain (left hip, down to knee and sometimes the foot on left) Physical Exam Vital Signs (Past 24 Hours): Last Vital Signs Temp 36.7 C 11/20/18 07:52 Pulse 66 11/20/18 11:02 Resp 18 11/20/18 11:02 BP 136/78 11/20/18 07:52 Pulse Ox 93 11/20/18 11:02 Physical Exam: Constitutional: WD/WN, vitals as above + obese Eyes: PERRL, conjunctivae normal, anicteric sclerae ENMT: external ear and nose normal, oropharynx normal Neck: trachea midline, no thyromegaly Respiratory: normal respiratory effort; no respiratory distress Auscultation: lungs clear to auscultation bilaterally; no rhonchi and no wheezes Cardiovascular: RRR, no murmur, no edema Gastrointestinal (Abdomen): normal bowel sounds, soft, nontender, no hepatosplenomegaly Musculoskeletal: no cyanosis or clubbing, extremities motor strength 5/5 Spine: + limited thoraco-lumbar ROM (due to spinal stenosis) Skin: no rashes, warm and dry Neurologic: patellar DTR's 2+ bilat, sensation intact and PERRL, EOMI, accommodation nl, no face palsy, no dysarthria Psychiatric: A+Ox3, euthymic affect Lymphatic: no cervical or axillary lymphadenopathy.
[2018-11-20] MEDS: PRAMIPEXOLE DIHYDROCHLO 0.5 MG TAB PO SCH (20:58)
[2018-11-20] MEDS: MONTELUKAST SODIUM 10 MG TABLET PO SCH (21:00)
[2018-11-20] MEDS ORDERED: levoFLOXacin 500 MG TAB PO SCH (21:00)
[2018-11-20] MEDS: ACETAMINOPHEN 325 MG TAB PO PRN (23:58)
[2018-11-21] MEDS: ALBUT/IPRATROP 3MG/0.5MG NEB 3 ML VIAL NEB SCH ×3 (07:05→14:53)
[2018-11-21 07:42] LABS: Hematocrit (blood only) 41.9 % (37-47); Hemoglobin 13.8 g/dL (12.0-16.0); Mean Corpuscular Hgb Conc 32.9 g/dL (32-36); Mean Platelet Volume 9.9 fL (7.4-10.4); Platelet Count 206 K/uL (130-400); RDW Coefficient of Variation 12.8 % (11.5-14.5); Red Blood Count 4.32 M/uL (4.2-5.4); White Blood Count 8.44 K/uL (4.8-10.8)
[2018-11-21] MEDS: ATORVASTATIN 10 MG TAB PO SCH (07:57)
[2018-11-21] MEDS: DULOXETINE HCL 20 MG CAP PO SCH (07:57)
[2018-11-21] MEDS: predniSONE 50 MG TAB PO SCH (07:57)
[2018-11-21] MEDS: CEROVITE ADV FORMULA TAB PO SCH (07:57)
[2018-11-21] MEDS: CHOLECALCIFEROL 1,000 UNITS TAB PO SCH (07:57)
[2018-11-21] MEDS: AMLODIPINE BESYLATE 5 MG TAB PO SCH (07:57)
[2018-11-21] MEDS: PANTOprazole 40 MG TAB PO SCH (07:57)
[2018-11-21] MEDS: OXYBUTYNIN CHLORIDE XL 5 MG TABCR PO SCH (07:57)
[2018-11-21] MEDS: GABAPENTIN 300 MG CAP PO SCH ×2 (07:58→13:45)
[2018-11-21] MEDS: HEPARIN SOD 5,000 UNIT/0.5 ML VIAL SQ SCH (07:58)
[2018-11-21] MEDS: INSULIN HUMAN NPH SC SCH (08:00)
[2018-11-21] MEDS: INSULIN ASPART 100 UNITS/ML 3 ML PEN SC SCH ×2 (08:01→11:58)
--- NOTE | 2018-11-21 11:41 | Pharmacy Report ---
Pharmacy Glycemic Short Note 2 - Date of Service November 21, 2018 - Glycemic Short BSG Results (Last 24 hours): 11/20/18 11/20/18 11/20/18 11:31 16:03 19:48 POC Glucose 72 157 H 208 H 11/21/18 07:42 POC Glucose 167 H OUTPATIENT ANTIDIABETIC REGIMEN: * None * Adverse reaction reported to Metformin -- GI upset (per provider notes, patient may be willing to trial this again) * 7.6% on 11/19/18 ASSESSMENT: 11/21 * Ms. Manning received 85 units of insulin yesterday * Steroids remain at prednisone 50 mg qAM, with weight-based NPH dosing on board to coincide with this * Postprandial BSGs improved after the carb ratio was removed starting w/ lunch yesterday; however, HS BSG increased * In addition, fasting BSG (167 mg/dL) is above goal so it appears that she needs a small amount of basal later in the day to provide HS and overnight coverage. 11/20 * Ms. Manning received 163 units of insulin yesterday (compared to 39 units the day prior) * Steroids have been tapered to prednisone 50 mg qAM (as of yesterday), with NPH weight-based dosing now on board to reflect this * BSGs have improved significantly overnight; however, I anticipate increases during the day with the once daily prednisone on board * Will hold off on additional basal insulin with Lantus now that Solu-medrol no longer on board. I'm anticipating a TDD ~ 100 units. 11/19 * Pt presented to ED with reports of bilateral hip pain, SOB, cough, chills, fever. She was placed on Solu-medrol IV 60mg Q8 for COPD exacerbation. * BSGs have ranged from 280s-390s while on Solu-medrol, transitioned this morning to Prednisone PO. * Pharmacy consulted to manage steroid induced hyperglycemia. * Daily insulin needs are unclear at this time due to poorly controlled hyperglycemia. * Given 39 units total yesterday with BSGs ranging 280s-310s. * Will likely require higher doses of basal insulin to decrease fasting BSGs. * Also higher doses of prandial insulin, especially while on steroids. PLAN FOR INPATIENT GLYCEMIC CONTROL: * Basal insulin - add PM dose to provide overnight coverage * NPH 55 units (~0.4 units/kg) to be given daily in AM with prednisone * Add NPH 15 units daily w/ dinner * Bolus insulin - no change * NovoLog per scale ACHS * Goal Range: Low 110 mg/dL - High 140 mg/dL * Correction Factor: 10 mg/dL/unit PLAN FOR DISCHARGE: * Could consider an extended release version of metformin in attempt to mitigate GI side effects. * If steroids to be continued on discharge, may also consider Amaryl 1 mg daily until prednisone < 20 mg/day
[2018-11-21] MEDS: ACETAMINOPHEN 325 MG TAB PO PRN (11:53)
[2018-11-21] MEDS ORDERED: INSULIN ASPART 100 UNITS/ML 3 ML PEN SC SCH (16:30)
[2018-11-21] MEDS ORDERED: INSULIN HUMAN NPH SC SCH (16:30)
[2018-11-21] MEDS ORDERED: levoFLOXacin 500 MG TAB PO STA (17:09)
[2018-11-22] MEDS ORDERED: INSULIN ASPART 100 UNITS/ML 3 ML PEN SC SCH (07:30)
[2018-11-22] MEDS ORDERED: INSULIN HUMAN NPH SC SCH (07:30)
--- NOTE | 2018-11-28 07:35 | Discharge Summary ---
Date of Service November 21, 2018 Admission HPI Per Admitting Provider The patient is a 68-year-old female who presents to the emergency department primary complaint of respiratory symptoms of shortness of breath, cough productive of yellowish-green sputum, fevers and chills with headache and sore throat worsening over the past week. She chronically wears 3 L of oxygen at nighttime, and has not adjusted the setting. She has not had any recent travels or sick exposures that she is aware of. She does also reports bilateral hip pain radiating down the back of both legs, for which she is receiving injections for spinal stenosis over the past year. She reports her last injection was 4 months ago. This is an ongoing pain. Principal Diagnosis COPD exacerbation Discharge Exam Constitutional: WD/WN, vitals as above + obese Eyes: PERRL, conjunctivae normal, anicteric sclerae ENMT: external ear and nose normal, oropharynx normal Neck: trachea midline, no thyromegaly Respiratory: normal respiratory effort; no respiratory distress Auscultation: lungs clear to auscultation bilaterally; no rhonchi and no wheezes Cardiovascular: RRR, no murmur, no edema Gastrointestinal (Abdomen): normal bowel sounds, soft, nontender, no hepatosplenomegaly Musculoskeletal: no cyanosis or clubbing, extremities motor strength 5/5 Spine: + limited thoraco-lumbar ROM (due to spinal stenosis) Skin: no rashes, warm and dry Neurologic: patellar DTR's 2+ bilat, sensation intact and PERRL, EOMI, accommodation nl, no face palsy, no dysarthria Psychiatric: A+Ox3, euthymic affect Lymphatic: no cervical or axillary lymphadenopathy. Discharge Data Allergies Allergy/AdvReac Type Severity Reaction Status Date / Time cetirizine Allergy Intermediate RASH Verified 11/17/18 17:12 diphenhydramine AdvReac Mild SHAKEY, Verified 11/17/18 17:12 DIZZY, DROWSY metformin AdvReac Unknown gi upset Verified 11/17/18 17:12 Consultations 11/17/18 22:49 ED Decision to Admit Stat 11/18/18 00:45 Consult Case Management - Discharge Planning Routine Hospital Course (1) Acute hypoxemic respiratory failure: due to COPD exacerbation Patient remained on oxygen on 11/19 despite documentation stating otherwise; on 11/20, had oxygen removed. lungs clear, breathing stable. Patient passed 2 step on day of discharge. (2) COPD exacerbation: can transfer off tele, leave on medical floor Was on Solu-Medrol 40 mg IV every 8 hours changed to Prednisone 50mg daily starting this morning plan for taper on discharge was on Levofloxacin 500 mg IV daily, and on Rocephin changed to PO on discharge for 7 day course Duonebs every 4 hours while awake and every 2 hours when necessary should ask CM to get home nebulizer Sputum Gram stain showed many PMN, several bacteria types, culture still pending Guaifenesin extended release 600 mg p.o. twice daily. Continue Singulair 10 mg daily. (3) Diabetes mellitus: hyperglycemia, sugars > 300 on steroids d/w patient, she used to be on Metformin but had to stop due to diarrhea use Lantus and Novolog will restart metformin at discharge. (4) Lumbar spinal stenosis: Lumbar spinal stenosis/bilateral lumbar radicular pain/restless leg syndrome-- Continue gabapentin and Mirapex. uses Ultram PRN as outpatient reviewed prior records, MRI 2015 showed severe canal stenosis hold on repeat imaging as her pain is similar to prior episodes would likely benefit from repeat pain injections as outpatient PT/OT (5) Chronic radicular lumbar pain: As above. Will have K pad available if needed. (6) HTN (hypertension): Continue amlodipine with hold parameters. BP stable this morning (7) Hyperlipidemia: Continue atorvastatin 10 mg daily. (8) Restless leg syndrome: As above. (9) GERD (gastroesophageal reflux disease): Continue pantoprazole 40 mg p.o. twice daily. If unable to keep up with magnesium replacement, may need to decrease dosing or split dosing with an H2 antagonist. (10) Bladder spasm: Continue oxybutynin 5 mg daily (11) Depressive disorder: more issues since losing her 4 months ago several other deaths in her family recently, lots of external stress was on Effexor 150mg BID but was not helping changed to Cymbalta 20mg daily, will likely need titrated up as outpatient Total Time Total Time Spent Total Time Spent (In Minutes): 32 Total Time Includes: Examination of the Patient, Discharge Planning and Medication Reconciliation Discharge Plan Discharge Items Patient Disposition: Home - Self-Care Reason For Visit: COPD EXACERBATION Discharge Diagnosis: COPD exacerbation Discharge Goals: Decrease discomfort Activity: Resume your previous activity Non-emergency contact: Primary Care Provider Call non-emergency contact if: you have any medication questions Follow-up/Referrals: Chava Ronquillo MD [Primary Care Provider] - 11/24/18 11:00 am (Please, follow up at Dr. Ronquillo's office with his contact lens assistant, Marissa Nettles PA-C, on TuesdayNovember 24 at 11:00 am. If you need to change this appointment, call the office at [phone].) Diet: Regular Addtl Provider Instructions: No work until after your appointment withyour PCP on TUESDAY. Prescriptions: New duloxetine 20 mg Capsule,Delayed Release(Dr/Ec) 20 mg PO QAM Qty: 30 RF: 0 prednisone 10 mg tablet 10 mg PO UD Qty: 20 RF: 0 levalbuterol tartrate 45 mcg/actuation HFA aerosol inhaler 2 inha INH Q6H Qty: 15 RF: 0 metformin 500 mg tablet extended release 24 hr 500 mg PO PM Qty: 30 RF: 0 Continued acetaminophen [Tylenol Extra Strength] 500 mg tablet 1,000 mg PO ONCE PRN (Reason: Pain) RF: 0 amlodipine [Norvasc] 10 mg tablet 10 mg PO DAILY RF: 0 atorvastatin [Lipitor] 10 mg tablet 10 mg PO DAILY RF: 0 gabapentin 300 mg capsule 900 mg PO .QHS RF: 0 gabapentin 300 mg capsule 300 mg PO BID RF: 0 montelukast [Singulair] 10 mg tablet 10 mg PO QPM RF: 0 multivitamin,tx-minerals [Multi-Vitamin HP/Minerals] capsule 1 cap PO DAILY RF: 0 pantoprazole 40 mg tablet,delayed release (DR/EC) 40 mg PO BID RF: 0 cholecalciferol (vitamin D3) 1,000 unit capsule 1,000 units PO DAILY RF: 0 pramipexole [Mirapex] 0.5 mg tablet 0.5 mg PO QPM RF: 0 lidocaine 5 % ointment 1 appln TOP BID RF: 0 ascorbic acid (vitamin C) [Vitamin C] 1,000 mg Tablet Extended Release PO DAILY RF: 0 oxybutynin chloride 5 mg tablet extended release 24hr 5 mg PO DAILY RF: 0 Brit-C with Bioflavonoids 500-200 mg Tablet 1 tab PO DAILY RF: 0 Discontinued celecoxib 100 mg capsule 100 mg PO BID RF: 0 Stand-Alone Forms: My [facility] Discharge Orders: Discharge Order (Routine); Ordered 11/21/18 Ordered By: Carlos Buckner Admission Data Admit Date/Time: 11/17/18 23:28 Attending Provider: Carlos Buckner Admit Provider: Chirag Lockwood Primary Care Provider: Chava Ronquillo Other Providers: Chirag Lockwood Service: Telemetry Medical Other Interventions: Discharge Summary Assessment (RN) Last Done: 11/21/18 17:40 DC Date/Time DO NOT enter until pt leaves facility: 11/21/18 19:45
== END 2018-11-21 19:45 | disposition home or self-care (01) | DRG 190 ==
LOC: ED 15:06 → SUATTDRO 23:28 → 2N 23:28

== ENCOUNTER 2019-05-18 09:45 | Inpatient (IN) ==
--- NOTE | 2019-04-23 16:14 | PAT Medication Instructions ---
Medication Instructions Date of Service April 23, 2019 Home Medications Medication Instructions Recorded Microlet lancets #200 ea 01/22/19 albuterol sulfate 2.5 mg/3 mL 2.5 mg INH QID PRN #90 ml 01/22/19 (0.083 %) solution for nebulization albuterol sulfate HFA 90 2 puffs INH Q6H PRN #18 gm 01/22/19 mcg/actuation aerosol inhaler blood sugar diagnostic strips #200 ea 01/22/19 fluticasone 500 mcg-salmeterol 50 1 puffs INHALATION BID #60 ea 01/22/19 mcg/dose blistr powdr for inhalation montelukast 10 mg tablet 10 mg PO QPM #90 tab 01/22/19 pen needle, diabetic 31 gauge x #100 ea 01/22/1910/28" pramipexole 0.5 mg tablet 0.5 mg PO QPM #90 tab 01/22/19 tramadol 50 mg tablet 50 mg PO Q6H PRN #50 tab 01/22/19 duloxetine 60 mg capsule,delayed 60 mg PO HS #90 cap 02/28/19 release meloxicam 7.5 mg tablet 7.5 mg PO BID #30 tab 04/05/19 albuterol sulfate 2.5 mg/3 mL (0.083 %) solution for nebulization 2.5 mg INH QID PRN albuterol sulfate HFA 90 mcg/actuation aerosol inhaler 2 puffs INH Q6H PRN fluticasone 500 mcg-salmeterol 50 mcg/dose blistr powdr for inhalation 1 puffs INHALATION BID montelukast 10 mg tablet 10 mg PO QPM pramipexole 0.5 mg tablet 0.5 mg PO QPM tramadol 50 mg tablet 50 mg PO Q6H PRN cholecalciferol (vitamin D3) 1,000 unit capsule 3,000 units PO QAM duloxetine 60 mg capsule,delayed release 60 mg PO HS lorazepam 0.5 mg tablet 0.5 mg PO Q8H PRN pantoprazole 40 mg tablet,delayed release 40 mg PO BID meloxicam 7.5 mg tablet 7.5 mg PO BID amlodipine [Norvasc] 10 mg PO QAM biotin 5,000 mcg PO QAM duloxetine [Cymbalta] 30 mg PO QAM fexofenadine 180 mg PO QAM fluticasone propionate 2 sprays INTNAS DAILY PRN gabapentin 300 mg PO QAM gabapentin 900 mg PO HS glimepiride [Amaryl] 1 mg PO QAM oxybutynin chloride [Ditropan XL] 10 mg PO QPM ASK your surgeon for instructions meloxicam 7.5 mg tablet 7.5 mg PO BID STOP taking 2 weeks before surgery (or as soon as possible if surgery is within 2 weeks) biotin 5,000 mcg PO QAM DO NOT take the morning of surgery cholecalciferol (vitamin D3) 1,000 unit capsule 3,000 units PO QAM fexofenadine 180 mg PO QAM glimepiride [Amaryl] 1 mg PO QAM Take morning of surgery With a small sip of water, OTHERWISE NOTHING TO EAT OR DRINK AFTER MIDNIGHT: albuterol sulfate 2.5 mg/3 mL (0.083 %) solution for nebulization 2.5 mg INH QID PRN (use if needed; please bring with you to hospital day of surgery if possible) albuterol sulfate HFA 90 mcg/actuation aerosol inhaler 2 puffs INH Q6H PRN (if needed) fluticasone 500 mcg-salmeterol 50 mcg/dose blistr powdr for inhalation 1 puffs INHALATION BID tramadol 50 mg tablet 50 mg PO Q6H PRN (okay to take up to 4 hours prior to surgery if needed) lorazepam 0.5 mg tablet 0.5 mg PO Q8H PRN (if needed) pantoprazole 40 mg tablet,delayed release 40 mg PO BID amlodipine [Norvasc] 10 mg PO QAM duloxetine [Cymbalta] 30 mg PO QAM fluticasone propionate 2 sprays INTNAS DAILY PRN (if needed) gabapentin 300 mg PO QAM Take evening before surgery albuterol sulfate 2.5 mg/3 mL (0.083 %) solution for nebulization 2.5 mg INH QID PRN (if needed) albuterol sulfate HFA 90 mcg/actuation aerosol inhaler 2 puffs INH Q6H PRN (if needed) fluticasone 500 mcg-salmeterol 50 mcg/dose blistr powdr for inhalation 1 puffs INHALATION BID montelukast 10 mg tablet 10 mg PO QPM pramipexole 0.5 mg tablet 0.5 mg PO QPM tramadol 50 mg tablet 50 mg PO Q6H PRN (if needed) duloxetine 60 mg capsule,delayed release 60 mg PO HS lorazepam 0.5 mg tablet 0.5 mg PO Q8H PRN (if needed) pantoprazole 40 mg tablet,delayed release 40 mg PO BID gabapentin 900 mg PO HS oxybutynin chloride [Ditropan XL] 10 mg PO QPM Other Notes If you have any questions please call us at [phone] or [phone] or [phone] or [phone]
--- NOTE | 2019-04-24 13:21 | Anesthesiology Consultation ---
Date of Service April 24, 2019 Assessment & Plan (1) Encounter for pre-operative examination: - Check BSG AM DOS Chart Review Chart Review: Acceptable Risk for Surgery and Patient seen in Pre Admission Testing Consults Requested none Teaching & Discussion Pre-Anesthesia Teaching/Discussion Notes: Instructed NPO after midnight before surgery,except medications with 15 cc of water. Medication instructions provided according to the PAT guidelines. History Surgery Operation Date: 05/18/19 14:20 Proposed Procedures p Left Reverse Total Shoulder Arthroplasty - Dominguez Chavez DO Height/Weight Height: 5 ft 2 in Weight: 137.3 kg Allergies Allergy/AdvReac Type Severity Reaction Status Date / Time cetirizine Allergy Intermediate RASH Verified 04/18/19 10:51 metformin AdvReac Unknown GI upset Verified 04/24/19 13:28 Medications Home Medications Medication Instructions Recorded Confirmed Last Taken Microlet lancets #200 ea 01/22/19 04/18/19 Unknown albuterol sulfate 2.5 mg/3 mL 2.5 mg INH QID PRN #90 ml 01/22/19 04/18/19 Unknown (0.083 %) solution for nebulization albuterol sulfate HFA 90 2 puffs INH Q6H PRN #18 gm 01/22/19 04/18/19 Unknown mcg/actuation aerosol inhaler blood sugar diagnostic strips #200 ea 01/22/19 04/18/19 Unknown fluticasone 500 mcg-salmeterol 50 1 puffs INHALATION BID #60 ea 01/22/19 04/18/19 Unknown mcg/dose blistr powdr for inhalation montelukast 10 mg tablet 10 mg PO QPM #90 tab 01/22/19 04/18/19 Unknown pen needle, diabetic 31 gauge x #100 ea 01/22/19 04/18/19 Unknown 3/16" pramipexole 0.5 mg tablet 0.5 mg PO QPM #90 tab 01/22/19 04/18/19 Unknown tramadol 50 mg tablet 50 mg PO Q6H PRN #50 tab 01/22/19 04/18/19 Unknown cholecalciferol (vitamin D3) 1,000 3,000 units PO QAM cap 01/26/19 04/18/19 Unknown unit capsule duloxetine 60 mg capsule,delayed 60 mg PO HS #90 cap 02/28/19 04/18/19 Unknown release lorazepam 0.5 mg tablet 0.5 mg PO Q8H PRN #30 tab 03/30/19 04/18/19 Unknown pantoprazole 40 mg tablet,delayed 40 mg PO BID #180 tab 03/30/19 04/18/19 Unknown release meloxicam 7.5 mg tablet 7.5 mg PO BID #30 tab 04/05/19 04/18/19 Unknown amlodipine [Norvasc] 10 mg PO QAM 04/18/19 04/18/19 Unknown biotin 5,000 mcg PO QAM 04/18/19 04/18/19 Unknown duloxetine [Cymbalta] 30 mg PO QAM 04/18/19 04/18/19 Unknown fexofenadine 180 mg PO QAM 04/18/19 04/18/19 Unknown fluticasone propionate 2 sprays INTNAS DAILY PRN 04/18/19 04/18/19 Unknown gabapentin 300 mg PO QAM 04/18/19 04/18/19 Unknown gabapentin 900 mg PO HS 04/18/19 04/18/19 Unknown glimepiride [Amaryl] 1 mg PO QAM 04/18/19 04/18/19 Unknown oxybutynin chloride [Ditropan XL] 10 mg PO QPM 04/18/19 04/18/19 Unknown Past Medical History Medical History GERD (gastroesophageal reflux disease) controlled Restless leg syndrome Morbid obesity Lumbar spinal stenosis Chronic lumbar pain Depressive disorder Fibromyalgia Diabetes mellitus NIDDM Asthma stable Anxiety COPD (chronic obstructive pulmonary disease) Gastroparesis History of ear infection hx recurrent ear infections s/p drainage tube in left ear History of urinary incontinence chronic History of urinary urgency chronic Hypertension Sleep apnea CPAP Exercise / Class Metabolic Activity III < 4 Walking/Shop/Light housework (uses cane/walker PRN) Past Family History Family History Brother Family history of diabetes mellitus Sister Family history of diabetes mellitus Mother Family history of diabetes mellitus Aunt Family history of diabetes mellitus Past Surgical History Surgical History History of cholecystectomy H/O: hysterectomy History of left knee replacement History of repair of right rotator cuff History of surgery on upper extremity LET ARM ABSCESS Hx of colonoscopy Past Anesthesia History No Hx of Anesthesia Complications and No Family Hx of Anesthesia Complications History of PONV No Hx of PONV and No Hx of Motion Sickness Social History Smoking Status: Never smoker Do You Dip or Chew Tobacco: No Hx Alcohol Use: Yes Alcohol type: wine alcohol intake frequency: holidays/special occasions only Hx Substance Use: No Review of Systems Reflux controlled. Patient denies chest pain, shortness of breath, cough, wheezing, palpitations. Physical Exam Vital Signs VITALS BP 106/73 P 79 TEMP 98.5 SP02 95%RA RESP 18 PHYSICAL Full neck and c-spine range of motion. Full TMJ range of motion. TMD 3.5 finger breaths Mallampati Score 1 Dentition: full dentures upper/lower; edentulous Lungs: clear throughout to auscultation Cardiac: regular rate and rhythm, no murmurs noted Spine: normal Carotid arteries: negative bruit Extremities: no edema Testing Laboratory Results 04/24/19 13:55 04/24/19 13:55 PT 10.3 Seconds (9.0-12.0) 04/24/19 13:55 INR 1.0 (0.9-1.1) 04/24/19 13:55 APTT 25.4 Seconds (21.0-31.0) 04/24/19 13:55 Hemoglobin A1c 6.6 % (4.5-5.6) H 04/24/19 13:55 Blood Type O Negative 04/24/19 13:55 Antibody Screen NEGATIVE 04/24/19 13:55 Electrocardiogram Date: 11/17/18 Findings: + NSR @ (81) Chest X-Ray Date: 12/14/18 There is no pneumothorax or pleural effusion. Cardiomegaly is unchanged. Opacity at the right cardiophrenic angle represents epicardial fat pad within correlating with prior CT. There is no consolidation or evidence for pulmonary edema. The appearance of the chest is unchanged. No acute cardiopulmonary findings. No change in appearance of the chest.
[2019-04-24 15:32] LABS: Basophils # (auto) 0.02 K/uL (0-0.2); Basophils % (auto) 0.2 %; Eosinophils # (auto) 0.11 K/uL (0-0.5); Eosinophils % (auto) 1.3 %; Hematocrit (blood only) 42.3 % (37-47); Hemoglobin 14.1 g/dL (12.0-16.0); Immature Granulocytes # (auto) 0.02 K/uL (0.00-0.02); Immature Granulocytes % (auto) 0.2 %; Lymphocytes # (auto) 2.95 K/uL (1.2-3.4); Mean Corpuscular Hemoglobin 31.8 pg (25-34); Mean Corpuscular Hgb Conc 33.3 g/dL (32-36); Mean Corpuscular Volume 95.5 fL (80-100); Mean Platelet Volume 10.4 fL (7.4-10.4); Monocytes # (auto) 0.78 K/uL (0.11-0.59); Monocytes % (auto) 9.5 %; Neutrophils # (auto) 4.32 K/uL (1.4-6.5); Neutrophils % (auto) 52.8 %; Platelet Count 222 K/uL (130-400); RDW Coefficient of Variation 12.8 % (11.5-14.5); RDW Standard Deviation 44.8 fL (36.4-46.3); Red Blood Count 4.43 M/uL (4.2-5.4)
[2019-04-24 15:39] LABS: BUN Creatinine Ratio 18.8 (10-20); Creatinine Clr Calc Pharmacy 77.3 ml/min; Est GFR (African American) 71.4; Est GFR (Non-African American) 61.6; Potassium 3.9 mmol/L (3.5-5.1)
[2019-04-24 15:44] LABS: Partial Thromboplastin Ratio 0.9; Partial Thromboplastin Time 25.4 Seconds (21.0-31.0); Prothrombin Time 10.3 Seconds (9.0-12.0)
[2019-04-25 05:59] LABS: Estimated Average Glucose 143 mg/dl; Hemoglobin A1C 6.6 % (4.5-5.6)
--- NOTE | 2019-05-18 06:32 | History & Physical Report ---
Date of Service May 18, 2019 Assessment & Plan (1) Rotator cuff arthropathy of left shoulder: We will proceed with a left reverse shoulder arthroplasty. Postoperatively she will be placed in an arm sling and kept overnight in the hospital for postoperative medical management. She plans to use Mobiv[employer] upon discharge. Present on Admission?: Yes History of Present Illness Chief Complaint: Rotator cuff arthropathy of the left shoulder Primary Care Provider: Bismark Ronquillo MD Antonieta is a pleasant 68-year-old female who has been dealing with chronic increasing left shoulder pain. X-rays and clinical examination have been diagnostic for rotator cuff arthropathy of the left shoulder. After failing conservative treatment, she has elected to proceed with a left reverse shoulder arthroplasty. Allergies Allergy/AdvReac Type Severity Reaction Status Date / Time cetirizine Allergy Intermediate RASH Verified 05/10/19 14:58 metformin AdvReac Unknown GI upset Verified 05/10/19 14:58 Home Medications Home Medications Medication Instructions Recorded Confirmed Type Microlet lancets #200 ea 01/22/19 05/10/19 Rx albuterol sulfate 2.5 mg/3 mL 2.5 mg INH QID PRN #90 ml 01/22/19 05/10/19 Rx (0.083 %) solution for nebulization albuterol sulfate HFA 90 2 puffs INH Q6H PRN #18 gm 01/22/19 05/10/19 Rx mcg/actuation aerosol inhaler blood sugar diagnostic strips #200 ea 01/22/19 05/10/19 Rx fluticasone 500 mcg-salmeterol 50 1 puffs INHALATION BID #60 ea 01/22/19 05/10/19 Rx mcg/dose blistr powdr for inhalation montelukast 10 mg tablet 10 mg PO QPM #90 tab 01/22/19 05/10/19 Rx pen needle, diabetic 31 gauge x #100 ea 01/22/19 05/10/19 Rx 3/16" pramipexole 0.5 mg tablet 0.5 mg PO QPM #90 tab 01/22/19 05/10/19 Rx tramadol 50 mg tablet 50 mg PO Q6H PRN #50 tab 01/22/19 05/10/19 Rx cholecalciferol (vitamin D3) 1,000 3,000 units PO QAM cap 01/26/19 05/10/19 History unit capsule duloxetine 60 mg capsule,delayed 60 mg PO HS #90 cap 02/28/19 05/10/19 Rx release lorazepam 0.5 mg tablet 0.5 mg PO Q8H PRN #30 tab 03/30/19 05/10/19 History pantoprazole 40 mg tablet,delayed 40 mg PO BID #180 tab 03/30/19 05/10/19 History release amlodipine [Norvasc] 10 mg PO QAM 04/18/19 05/10/19 History biotin 5,000 mcg PO QAM 04/18/19 05/10/19 History duloxetine [Cymbalta] 30 mg PO QAM 04/18/19 05/10/19 History fexofenadine 180 mg PO QAM 04/18/19 05/10/19 History fluticasone propionate 2 sprays INTNAS DAILY PRN 04/18/19 05/10/19 History oxybutynin chloride [Ditropan XL] 10 mg PO QPM 04/18/19 05/10/19 History gabapentin 300 mg capsule 300 mg PO .COMPLEX #450 cap 04/30/19 05/10/19 Rx glimepiride 1 mg tablet 1 mg PO QAM #90 tab 04/30/19 05/10/19 Rx meloxicam 7.5 mg tablet 7.5 mg PO BID #60 tab 05/02/19 05/10/19 Rx Past Med/Surg History Medical History GERD (gastroesophageal reflux disease) controlled Restless leg syndrome Morbid obesity Lumbar spinal stenosis Chronic lumbar pain Depressive disorder Fibromyalgia Diabetes mellitus NIDDM Asthma stable Anxiety COPD (chronic obstructive pulmonary disease) Gastroparesis History of ear infection hx recurrent ear infections s/p drainage tube in left ear History of urinary incontinence chronic History of urinary urgency chronic Hypertension Sleep apnea CPAP Surgical History History of cholecystectomy H/O: hysterectomy History of left knee replacement History of repair of right rotator cuff History of surgery on upper extremity LET ARM ABSCESS Hx of colonoscopy Family History Brother Family history of diabetes mellitus Sister Family history of diabetes mellitus Mother Family history of diabetes mellitus Aunt Family history of diabetes mellitus Social History Preferred Language: Northern Irish Communication Ability: Effective Dry Goods Clerk Required: No Beliefs That Will Affect Care: None marital status: Current Living Situation: Alone Feels Safe at Home: Yes Smoking Status: Never smoker Do You Dip or Chew Tobacco: No ; Second Hand Exposure: Yes (OCCASSIONALLY; WAS A SMOKER) ; Hx Alcohol Use: Yes Alcohol type: wine Hx Substance Use: No Review of Systems All systems reviewed & are unremarkable except as noted in HPI & below Physical Exam Constitutional: WD/WN, vitals as above Eyes: PERRL, conjunctivae normal, anicteric sclerae ENMT: external ear and nose normal, oropharynx normal Neck: trachea midline, no thyromegaly Respiratory: normal respiratory effort Cardiovascular: RRR, no murmur, no edema Gastrointestinal (Abdomen): normal bowel sounds, soft, nontender, no hepatosplenomegaly Musculoskeletal: Physical examination of the left shoulder reveals decreased range of motion and significant weakness. There is tenderness palpation along the anterior glenohumeral joint line. The right upper extremity is neurovascularly intact. Psychiatric: A+Ox3, euthymic affect Results & Data Diagnostic Findings Radiographs of the left shoulder show some signs of osteoarthritis with blunting of the greater tuberosity and some superior migration of the humeral head on the glenoid.
[~2019-05-18 09:45] MED LIST changes: -ACET-1256 PO; +ACETAMINOPHEN 500 MG TAB PO SCH; -AMLO10TA3 PO; +BUPIVACAINE 0.5 % 5 MG/1 ML PF 10ML VIAL ONE; +CEFAZOLIN 3000MG 72.5 ML IV SCH; -CELE1CAP28 PO; +EPINEPHrine INJ 1 MG/ML AMP ONE; +FAMOTIDINE 20 MG TAB PO SCH; -GABA-113 PO; +GABAPENTIN 300 MG CAP PO SCH; -LPT10 PO; +LR 15ML/HR IV SCH; +LR 60ML/HR IV SCH; -METF500T5 PO; -MONT1TAB3 PO; -MULT-506 PO; -PANT40TA2 PO; +ROPIVACAINE 0.5% 5 MG/ML 30 ML VIAL ONE; +ROPIVACAINE 0.5% HCL/PF 150 MG, BUPIVACAINE 0.5% MPF 30 ML, EPINEPHrine 30MG/30ML (OR U... INFIL SCH; -TRAM-10 PO; +TRANEXAMIC ACID 1,000 MG **IV Intra-op IV SCH; +TRANEXAMIC ACID 1,000 MG **IV Pre-op IV SCH; +cloNIDine HCL 100 MCG/ML SYR ONE
[2019-05-18] MEDS ORDERED: ONDANSETRON INJ 2 MG/ML 2 ML VIAL IV PRN ×2 (11:30→17:07)
[2019-05-18] MEDS ORDERED: PHENYLEPHRINE 100MCG/ML 5ML SYR IV PRN (11:30)
[2019-05-18] MEDS ORDERED: LABETALOL HCL IV 5 MG/ML 20ML IV PRN (11:30)
[2019-05-18] MEDS ORDERED: HYDROmorphone INJ 1 MG/ML SYRINGE IV PRN (11:30)
[2019-05-18] MEDS ORDERED: ePHEDrine sulfate 50 MG/ML AMP IV PRN (11:30)
[2019-05-18] MEDS ORDERED: ATROPINE SULFATE 0.1 MG/ML 10ML SYR IV PRN (11:30)
[2019-05-18] MEDS ORDERED: fentaNYL citrate 100 MCG/2 ML VIAL ONE (11:47)
[2019-05-18] MEDS ORDERED: MIDAZOLAM HCL 1 MG/ML 2ML VIAL ONE (11:47)
[2019-05-18] MEDS ORDERED: LIDOCAINE HCL 2% 2 ML VIAL/AMP(20MG/ML) INFIL ONE (11:47)
[2019-05-18] MEDS ORDERED: PROPOFOL IV EMULSION 10 MG/ML 20 ML VIAL IV ONE (11:47)
[2019-05-18] MEDS ORDERED: ORTHO JOINT ANESTHETIC ONE (13:23)
[2019-05-18] MEDS ORDERED: SUCCINYLCHOLINE CHLORIDE 20 MG/ML 10 ML VIAL ONE (14:20)
[2019-05-18] MEDS ORDERED: ONDANSETRON INJ 2 MG/ML 2 ML VIAL ONE (14:20)
--- NOTE | 2019-05-18 15:22 | Operative Report ---
Post Operative Report Pre & Post Diagnosis Operation Date: 05/18/19 12:30 Pre-Op Diagnosis: Left Shoulder rotator cuff arthropathy Post-Op Diagnosis: Left Shoulder rotator cuff arthropathy Procedure Operation Date: 05/18/19 12:30 Actual Procedures p Left Reverse Total Shoulder Arthroplasty(Left) - Dominguez Chavez DO Surgeon Dominguez Chavez DO Inserting Machine Operator Dominguez Soto PAC Estimated Blood Loss 250 Findings Consistent with Post-Op Diagnosis Specimens Left humeral head Complications none Disposition Disposition: Recovery Room Indications Antonieta is a pleasant 68-year-old female who presented my office with chronic increasing left shoulder pain. MRI and clinical examination were diagnostic for rotator cuff arthropathy of the left shoulder. After failing conservative treatment, she elected proceed with a left reverse shoulder arthroplasty. Description of Procedure Implants used: I used a [employer] Comprehensive reverse total shoulder arthroplasty system with a size 10 press fit mini humeral stem, a +3 offset standard humeral tray and a standard humeral bearing, a 25 mm mini baseplate with a 6.5 mm central screw and superior and inferior locking screws, and a size to 36 mm eccentric glenosphere. The patient arrived at [facility] for the above procedure. There were seen in the preoperative holding area and the operative extremity was identified and signed. They were given a preoperative antibiotic and an interscalene nerve block. They were taken back to the operating room, laid on table in supine position, and put under general anesthesia. They were then put into the beachchair position. The shoulder was then prepped and draped in sterile fashion. A timeout was done and the patient and the operative extremity was properly identified. A deltopectoral approach was used. Dissection was taken down through the fascia and the deltoid was retracted laterally and the conjoined tendon was retracted medially. The anterior shoulder was exposed. The long head of the biceps tendon was tenodesed to the upper border of the pectoralis major. The subscapularis was then released off the lesser tuberosity with a centimeter of cuff tissue remaining. The inferior capsule was released and the humeral head was dislocated. A canal finding reamer was sent down the center of the humeral canal. Sequential reaming up to a size 10 reamer was done. Off that reamer, a proximal humeral resection guide was placed. The proximal humerus was resected at 135 of inclination and 25 of retroversion. Osteophytes were then removed and the glenoid was exposed. Time was spent doing a complete capsular and labral release. The glenoid guide was then placed in the inferior aspect of the glenoid. A 3.2 mm Steinmann pin was then placed into the glenoid vault at 10 of inclination. The glenoid baseplate was then reamed. The final size 25 mm mini baseplate was then impacted in the place. A 6.5 mm central screw was then placed followed by superior and inferior locking screws. A 36 mm eccentric glenoid sphere was then impacted into place. Surrounding soft tissues were then injected with 100 cc an orthopedic pain control cocktail. The proximal humerus was then exposed. Sequential broaching of the humerus up to a size 10 broach was done. Off that broach a +3 offset humeral tray was trialed. The shoulder was then reduced, brought through a full range of motion and felt to be stable. The shoulder was then dislocated and the broach was removed. The final size 10 mini press-fit humeral stem was then impacted into place. A standard humeral bearing was then snapped onto a +3 offset standard humeral tray and the ring-lock mechanism was engaged. The humeral tray was then impacted onto the humeral stem. The shoulder was once again reduced, brought through a full range of motion and felt to be stable. The subscapularis was chronically torn and not repaired after the procedure. A dilute betadyne lavage was then done for 3 minutes. The joint was then irrigated with normal saline solution. Hemostasis was obtained. The skin was then closed with 2-0 Vicryl, 3-0V lock suture, and patsy. A soft dressing and a regular arm sling was placed. The patient was then extubated and transferred to a hospital bed. They were taken to the postanesthesia care unit in stable condition. They tolerated the procedure well. I attest to the content of the Intraoperative Record and any orders documented therein. Any exceptions are noted below.
[2019-05-18] MEDS: fentaNYL citrate 100 MCG/2 ML VIAL IV PRN ×4 (15:38→15:53)
--- NOTE | 2019-05-18 16:34 | XRay Report ---
XR shoulder LT min 2V routine CLINICAL HISTORY: Post shoulder surgery COMPARISON: 12/14/2018 DISCUSSION: There are postsurgical changes of a reverse total left shoulder arthroplasty. There is no dislocation. No acute fractures are delineated. There are overlying skin patsy. IMPRESSION: Postsurgical changes of a reverse total left shoulder arthroplasty. No evidence of disloc ation. Electronically signed by: Blas Ott M.D. 05/18/2019 4:33 PM
--- NOTE | 2019-05-18 16:40 | Anesthesiology Progress Note ---
Date of Service May 18, 2019 Anesthesia Post Procedure Vital Signs Vital Signs: Temp Pulse Pulse Resp BP BP Pulse Ox 05/18/19 16:35 36.5 C 77 21 156/78 H 92 05/18/19 16:25 81 19 149/72 H 94 05/18/19 16:15 83 17 133/80 94 05/18/19 16:05 78 17 166/85 H 92 05/18/19 15:55 82 17 155/68 H 92 05/18/19 15:45 83 23 149/96 H 97 05/18/19 15:35 80 18 145/85 H 97 05/18/19 15:26 36.5 C 79 17 150/70 H 95 05/18/19 13:24 76 22 146/85 H 97 05/18/19 10:45 36.7 C 72 20 116/75 93 Pain Intensity Lower Back: Pain Intensity: 9 Bilateral Hip: Pain Intensity: 5 Transfer of Care Handoff Completed per policy Notes Mental Status: alert / awake / arousable and participated in evaluation Patient Amnestic to Procedure: Yes Nausea / Vomiting: adequately controlled Pain: adequately controlled Airway Patency, RR, SpO2: stable & adequate BP & HR: stable & adequate Hydration State: stable & adequate Anesthetic Complications: no major complications apparent and Pt Satisfied with anesthetic care Notes: block is functioning well
[2019-05-18] MEDS ORDERED: bisacodyL 10 MG SUPP PR PRN (17:07)
[2019-05-18] MEDS ORDERED: ALBUTEROL 0.083% NEBU SOLN 3 ML VIAL INH PRN (17:07)
[2019-05-18] MEDS ORDERED: NALOXONE HCL 0.4 MG/1 ML VIAL/CARP IV PRN (17:07)
[2019-05-18] MEDS ORDERED: MAGNESIUM HYDROXIDE SUSP 30 ML UDC PO PRN (17:07)
[2019-05-18] MEDS ORDERED: ALBUTEROL HFA 8 GM INHALER INH PRN (17:07)
[2019-05-18] MEDS ORDERED: METOCLOPRAMIDE HCL INJ 5 MG/ML 2 ML VIAL IV PRN (17:07)
[2019-05-18] MEDS ORDERED: FLUTICASONE PROPIONATE NA SPR 16 GM BTL PRN (17:07)
[2019-05-18] MEDS ORDERED: LORazepam 0.5 MG TAB PO PRN (17:07)
[2019-05-18] MEDS ORDERED: PHARMACY GLYCEMIC MGMT CONSULT PRN (17:54)
[2019-05-18] MEDS ORDERED: GLUCOSE 40% GEL 15 GM TUBE PO PRN (18:00)
[2019-05-18] MEDS ORDERED: CARBOHYDRATES FOR HYPOGLYCEMIA PO PRN (18:00)
[2019-05-18] MEDS ORDERED: DEXTROSE 50% 50 ML SYRINGE IV PRN (18:00)
[2019-05-18] MEDS ORDERED: GLUCAGON FOR INJ 1 MG VIAL IM PRN (18:00)
[2019-05-18] MEDS ORDERED: GLUCOSE 10 TABS/TUBE PO PRN (18:00)
[2019-05-18] MEDS: INSULIN ASPART 100 UNITS/ML 3 ML PEN SC SCH ×2 (18:25→20:46)
[2019-05-18] MEDS: SODIUM CHLORIDE 0.9% 1000ML 1,000 ML IV SCH (19:14)
[2019-05-18] MEDS: KETOROLAC TROMETHAMINE 15 MG/ML VIAL IV SCH (19:14)
[2019-05-18] MEDS: FLUTICASONE/SALMETEROL (ADVAIR) 500/50 INH 14 PUFF INH SCH (20:41)
[2019-05-18] MEDS: CEFAZOLIN 2000MG 2,000 MG/15 ML SYR IV SCH (20:43)
[2019-05-18] MEDS: DULOXETINE HCL 60 MG CAP PO SCH (20:44)
[2019-05-18] MEDS: DOCUSATE SODIUM 100 MG CAP PO SCH (20:44)
[2019-05-18] MEDS: PRAMIPEXOLE DIHYDROCHLO 0.5 MG TAB PO SCH (20:44)
[2019-05-18] MEDS: OXYBUTYNIN CHLORIDE XL 5 MG TABCR PO SCH (20:44)
[2019-05-18] MEDS: PANTOprazole 40 MG TAB PO SCH (20:45)
[2019-05-18] MEDS: SENNA 8.6 MG TAB PO SCH (20:45)
[2019-05-18] MEDS: GABAPENTIN 300 MG CAP PO SCH (20:45)
[2019-05-18] MEDS: MONTELUKAST SODIUM 10 MG TABLET PO SCH (20:46)
[2019-05-18] MEDS: ACETAMINOPHEN 500 MG TAB PO SCH (21:03)
[2019-05-18] MEDS ORDERED: LANTUS PER UNIT CHARGE SQ ONE (21:30)
[2019-05-19] MEDS: OXYCODONE HCL IR 5 MG TAB (IMMEDIATE RELEASE) PO PRN ×4 (00:03→20:54)
[2019-05-19] MEDS: INSULIN ASPART 100 UNITS/ML 3 ML PEN SC SCH ×6 (00:16→21:50)
[2019-05-19] MEDS: KETOROLAC TROMETHAMINE 15 MG/ML VIAL IV SCH ×5 (00:18→23:37)
[2019-05-19] MEDS: CEFAZOLIN 2000MG 2,000 MG/15 ML SYR IV SCH (04:44)
[2019-05-19] MEDS: SODIUM CHLORIDE 0.9% 1000ML 1,000 ML IV SCH (04:51)
[2019-05-19] MEDS: ACETAMINOPHEN 500 MG TAB PO SCH ×3 (05:03→20:57)
[2019-05-19] MEDS: HYDROmorphone INJ 0.5 MG/0.5 ML SYR IV PRN (05:03)
[2019-05-19 05:57] LABS: Basophils # (auto) 0.01 K/uL (0-0.2); Basophils % (auto) 0.1 %; Hematocrit (blood only) 37.2 % (37-47); Hemoglobin 12.1 g/dL (12.0-16.0); Immature Granulocytes # (auto) 0.02 K/uL (0.00-0.02); Immature Granulocytes % (auto) 0.2 %; Lymphocytes # (auto) 1.77 K/uL (1.2-3.4); Lymphocytes % (auto) 14.4 %; Mean Corpuscular Hemoglobin 31.8 pg (25-34); Mean Corpuscular Hgb Conc 32.5 g/dL (32-36); Mean Corpuscular Volume 97.6 fL (80-100); Mean Platelet Volume 9.8 fL (7.4-10.4); Monocytes # (auto) 0.89 K/uL (0.11-0.59); Monocytes % (auto) 7.2 %; Neutrophils # (auto) 9.64 K/uL (1.4-6.5); Neutrophils % (auto) 78.1 %; Platelet Count 197 K/uL (130-400); RDW Coefficient of Variation 13.3 % (11.5-14.5); RDW Standard Deviation 47.4 fL (36.4-46.3); Red Blood Count 3.81 M/uL (4.2-5.4); White Blood Count 12.33 K/uL (4.8-10.8)
[2019-05-19 06:24] LABS: BUN Creatinine Ratio 19.8 (10-20); Calcium 8.3 mg/dl (8.5-10.1); Creatinine Clr Calc Pharmacy 91.2 ml/min; Est GFR (Non-African American) 76.8
--- NOTE | 2019-05-19 08:47 | Orthopedic Progress Note ---
Date of Service May 19, 2019 Assessment & Plan (1) Rotator cuff arthropathy of left shoulder: Overall she is doing fairly well. She is doing about as well as expected. She will be seen by physical therapy today for ambulation and range of motion exercises. She can be discharged home later this morning with [facility]. She will follow-up with orthopedics in 2 weeks. Present on Admission?: Yes Subjective Antonieta was seen and examined at bedside this morning. Overall she is doing fairly well. Her shoulder is not bothering her too much. She complains mostly of back and leg pains. She is seeing pain management for that. She was able to get some sleep last night. She has no complaints. Physical Exam Musculoskeletal: On physical examination of the left shoulder, the dressing is clean and dry. She is wearing her sling as instructed. Her radial, median, and ulnar nerves are checked and intact. Her axillary nerve is not checked yet. Results & Data Vital Signs (Past 12 Hours) Vital Signs Temp Pulse Pulse Resp BP Pulse Ox 05/19/19 07:15 36.8 C 85 18 138/68 96 05/19/19 03:32 36.7 C 81 16 118/69 96 05/19/19 00:01 96 05/18/19 23:59 36.6 C 85 16 130/80 84 L Laboratory Results H & H 04/24/19 05/19/19 Range/Units 13:55 05:36 Hgb 14.1 12.1 (12.0-16.0) g/dL Hct 42.3 37.2 (37-47) % Coagulation 04/24/19 Range/Units 13:55 INR 1.0 (0.9-1.1) Diagnostic Findings Postoperative x-rays of the left shoulder show the prosthesis to be in anatomic alignment without any evidence of fracture, dislocation, or loosening. PG Care Time/CCT Total # of Minutes Spent Total Time Spent with Patient: Total time spent is greater than 50% in coordination of care (as documented) at patient's floor/unit and/or counseling patient:
--- NOTE | 2019-05-19 08:48 | Discharge Summary ---
Date of Service May 19, 2019 Admission HPI Per Admitting Provider Antonieta is a pleasant 68-year-old female who has been dealing with chronic increasing left shoulder pain. X-rays and clinical examination have been diagnostic for rotator cuff arthropathy of the left shoulder. After failing conservative treatment, she has elected to proceed with a left reverse shoulder arthroplasty. Principal Diagnosis Left reverse shoulder arthroplasty Discharge Data Allergies Allergy/AdvReac Type Severity Reaction Status Date / Time cetirizine Allergy Intermediate RASH Verified 05/18/19 10:52 metformin AdvReac Unknown GI upset Verified 05/18/19 10:52 Consultations 05/18/19 17:07 Consult Case Management - Discharge Planning Routine Procedures Performed Operation Date: 05/18/19 12:30 Actual Procedures p Left Reverse Total Shoulder Arthroplasty(Left) - Dominguez Chavez DO Ordered Studies 05/18/19 05:00 US - OR guided needle placemen Routine Hospital Course (1) Rotator cuff arthropathy of left shoulder: On May 18, 2019 Antonieta arrived at [facility] and underwent a left reverse shoulder arthroplasty without complication. She had a general anesthetic and a left interscalene nerve block. Postoperatively she was placed in arm sling and discharged to general orthopedic floors. Her hospital course is uneventful. On postop day #1 her H&H was stable and her pain was well controlled. She was able to participate well with physical therapy. She was then discharged home with [employer] [employer] [facility]. She will follow-up with orthopedics in 2 weeks. Total Time Total Time Spent Total Time Spent (In Minutes): 20 Discharge Plan Discharge Items Patient Disposition: Home - Home Health Services Reason For Visit: Left Shoulder Degenerative Joint Disease Discharge Diagnosis: Left reverse shoulder arthroplasty Activity: As commented below Non-emergency contact: Surgeon Call non-emergency contact if: your wound has increased redness and your wound has increased drainage Follow-up/Referrals: Chava Ronquillo MD [Primary Care Provider] - Diet: Carb Consistent or DM2 Addtl Attending Provider Instructions: Activity and Therapy Recommendations: * If you are using [facility] then therapy will be provided at your home until they feel you have accomplished all of your goals. * If you are using [facility] then Physical Therapy will be provided until they feel you are ready to start Outpatient Physical Therapy. * If you are not using home therapy then Outpatient Physical Therapy should star t about 3-5 days from your day of surgery. Therapy will last about 8-12 weeks * Wear your sling for 3 weeks, unless otherwise instructed. You may remove your sling to shower and to dress, but otherwise, you should be in your sling at all times, including while sleeping * The shoulder replacement is very stable and you can use your hand while in the sling * You were shown a series of exercises in the hospital. Do these exercises daily including the exercises you were shown in physical therapy. Medications: * Narcotic You will likely be sent home from the hospital with a prescription for the narcotic pain medication that worked best throughout your stay. * Other medications may be prescribed for specific circumstances. If you have any questions, please call the office at . * Resume previous home medications unless otherwise instructed Dressing Care: Leave the plastic dressing in place for 5 days. After 5 days you may remove the plastic dressing. If the incision is not draining then you may leave the patsy open to air. If there is a little bit of drainage or if the patsy are getting stuck on your clothing then cover the incision with a dry dressing. The patsy will be removed at your 2 week follow-up appointment. Showering: You may shower with the plastic dressing in place. Let the shower spray hit the other shoulder. You can pat the plastic dry. If the dressing becomes wet underneath the plastic then simply remove the dressing. Keep the incision dry until you are 5 days out from the day of surgery. At that time you can shower with the patsy exposed. Let the soapy shower water run over the patsy and pat them dry. Do not scrub or soak the incision. Things To Watch For: * Drainage from the incision site that occurs more than one week after your surgery. * Increased redness at the incision site. * Fever above 102 degrees Fahrenheit. * Unusual chest pain or shortness of breath. * Call [facility] at with any of the above problems Follow-Up Visit: Follow-up with Dr. Chavez 2-3 weeks after your day of surgery. An appointment was probably scheduled when you signed-up for surgery in the office. If you have any questions call Office Instructions: More detailed instructions as well as Frequently Asked Questions were provided in a folder by our office when you signed-up for surgery. Please review these instructions when you get home. If you have any further questions or concerns, please feel free to call the office at [phone] Pending Studies at Discharge: No Stand-Alone Forms: [facility] Medications and DC Order Prescriptions: New oxycodone 5 mg Tablet 5 mg PO Q4H PRN (Reason: pain) Qty: 30 RF: 0 Continued duloxetine [Cymbalta] 60 mg capsule,delayed release(DR/EC) 60 mg PO HS Qty: 90 RF: 3 gabapentin 300 mg capsule 300 mg PO .COMPLEX Qty: 450 RF: 0 glimepiride [Amaryl] 1 mg tablet 1 mg PO QAM Qty: 90 RF: 3 meloxicam 7.5 mg tablet 7.5 mg PO BID Qty: 60 RF: 5 fluticasone propion-salmeterol [Advair Diskus] 500-50 mcg/dose blister with device 1 puffs inhalation BID Qty: 60 RF: 3 montelukast [Singulair] 10 mg tablet 10 mg PO QPM Qty: 90 RF: 3 Accu-Chek Kirstin Plus test strp strip .ROUTE .MEDSUPPLY Qty: 200 RF: 3 albuterol sulfate 2.5 mg /3 mL (0.083 %) solution for nebulization 2.5 mg INH QID PRN (Reason: shortness of breath or wheezing) Qty: 90 RF: 3 albuterol sulfate 90 mcg/actuation HFA aerosol inhaler 2 puffs INH Q6H PRN (Reason: shortness of breath or wheezing) Qty: 18 RF: 3 pen needle, diabetic [Comfort EZ Pen [place]] 31 gauge x 3/16" needle .ROUTE .MEDSUPPLY Qty: 100 RF: 0 lancets [Lancets,Thin] misc .ROUTE .MEDSUPPLY Qty: 200 RF: 3 pramipexole [Mirapex] 0.5 mg tablet 0.5 mg PO QPM Qty: 90 RF: 2 tramadol 50 mg tablet 50 mg PO Q6H PRN (Reason: pain) Qty: 50 RF: 0 cholecalciferol (vitamin D3) 1,000 unit capsule 3,000 units PO QAM RF: 0 lorazepam 0.5 mg tablet 0.5 mg PO Q8H PRN (Reason: Anxiety) Qty: 30 RF: 0 pantoprazole 40 mg tablet,delayed release (DR/EC) 40 mg PO BID Qty: 180 RF: 0 biotin 5,000 mcg Tablet,Disintegrating 5,000 mcg PO QAM RF: 0 oxybutynin chloride [Ditropan XL] 10 mg tablet extended release 24hr 10 mg PO QPM RF: 0 fexofenadine 180 mg tablet 180 mg PO QAM RF: 0 amlodipine [Norvasc] 10 mg tablet 10 mg PO QAM RF: 0 fluticasone propionate 50 mcg/actuation spray,suspension 2 sprays INTNAS DAILY PRN (Reason: NASALL CONGESTION) RF: 0 duloxetine [Cymbalta] 30 mg capsule,delayed release(DR/EC) 30 mg PO QAM RF: 0 Discharge Orders: Discharge Order (Routine); Ordered 05/19/19 Ordered By: Dominguez Chavez Admission Data Admit Date/Time: 05/18/19 16:01 Attending Provider: Dominguez Chavez Admit Provider: Dominguez Chavez Primary Care Provider: Chava Ronquillo
[2019-05-19] MEDS: AMLODIPINE BESYLATE 5 MG TAB PO SCH (09:06)
[2019-05-19] MEDS: DOCUSATE SODIUM 100 MG CAP PO SCH ×2 (09:06→20:56)
[2019-05-19] MEDS: FEXOFENADINE HCL 180 MG TAB PO SCH (09:06)
[2019-05-19] MEDS: GABAPENTIN 300 MG CAP PO SCH ×3 (09:06→20:56)
[2019-05-19] MEDS: PANTOprazole 40 MG TAB PO SCH ×2 (09:06→20:57)
[2019-05-19] MEDS: MULTIVITAMIN TAB PO SCH (09:07)
[2019-05-19] MEDS: FLUTICASONE/SALMETEROL (ADVAIR) 500/50 INH 14 PUFF INH SCH ×2 (09:07→20:58)
[2019-05-19] MEDS: DULOXETINE HCL 30 MG CAP PO SCH (09:07)
[2019-05-19] MEDS: DULOXETINE HCL 60 MG CAP PO SCH (20:56)
[2019-05-19] MEDS: OXYBUTYNIN CHLORIDE XL 5 MG TABCR PO SCH (20:56)
[2019-05-19] MEDS: SENNA 8.6 MG TAB PO SCH (20:57)
[2019-05-19] MEDS: MONTELUKAST SODIUM 10 MG TABLET PO SCH (20:57)
[2019-05-19] MEDS: PRAMIPEXOLE DIHYDROCHLO 0.5 MG TAB PO SCH (20:57)
[2019-05-20] MEDS: OXYCODONE HCL IR 5 MG TAB (IMMEDIATE RELEASE) PO PRN ×3 (01:08→23:57)
[2019-05-20] MEDS: HYDROmorphone INJ 0.5 MG/0.5 ML SYR IV PRN (01:50)
[2019-05-20] MEDS: ACETAMINOPHEN 500 MG TAB PO SCH ×3 (05:24→22:03)
[2019-05-20] MEDS: KETOROLAC TROMETHAMINE 15 MG/ML VIAL IV SCH ×2 (05:25→12:50)
--- NOTE | 2019-05-20 08:11 | Orthopedic Progress Note ---
Date of Service May 20, 2019 Assessment & Plan (1) Rotator cuff arthropathy of left shoulder: With regards to her shoulder she is doing fairly well. She is not having much pain. Unfortunately she is having a lot of back pain and leg pain. She does not feel safe going home. She lives by herself in a trailer and is unable to do her activities of daily living. The therapist recommended rehab. We are waiting for the insurance companies to open tomorrow for rehab approval. She can be discharged to rehab once a bed is available. Present on Admission?: Yes Mary Fung was seen and examined at bedside this morning. Unfortunately she did not do well yesterday with physical therapy. Her shoulder is feeling okay but she complains mostly of low back pain and bilateral leg pain. She is currently seeing pain management for her back in her leg pains. Therapy did not feel safe sending her home. Physical Exam Musculoskeletal: On physical examination of her left shoulder, the dressing is clean and dry. Her radial, median, and ulnar nerves are checked and intact. She is wearing her sling as instructed. Results & Data Vital Signs (Past 12 Hours) Vital Signs Temp Pulse Pulse Resp BP Pulse Ox 05/20/19 06:56 36.8 C 71 18 122/64 94 05/20/19 00:07 36.4 C L 72 16 108/54 L 95 PG Care Time/CCT Total # of Minutes Spent Total Time Spent with Patient: Total time spent is greater than 50% in coordination of care (as documented) at patient's floor/unit and/or counseling patient:
[2019-05-20] MEDS: AMLODIPINE BESYLATE 5 MG TAB PO SCH (09:14)
[2019-05-20] MEDS: DULOXETINE HCL 30 MG CAP PO SCH (09:14)
[2019-05-20] MEDS: MULTIVITAMIN TAB PO SCH (09:14)
[2019-05-20] MEDS: DOCUSATE SODIUM 100 MG CAP PO SCH ×2 (09:14→20:15)
[2019-05-20] MEDS: FLUTICASONE/SALMETEROL (ADVAIR) 500/50 INH 14 PUFF INH SCH ×2 (09:14→20:15)
[2019-05-20] MEDS: PANTOprazole 40 MG TAB PO SCH ×2 (09:14→20:16)
[2019-05-20] MEDS: FEXOFENADINE HCL 180 MG TAB PO SCH (09:14)
[2019-05-20] MEDS: GABAPENTIN 300 MG CAP PO SCH ×3 (09:14→20:16)
[2019-05-20] MEDS: INSULIN ASPART 100 UNITS/ML 3 ML PEN SC SCH ×4 (09:16→20:20)
--- NOTE | 2019-05-20 09:53 | Pharmacy Report ---
PHA: Glycemic Control AP - Date of Service May 20, 2019 - Assessment & Plan The patient is currently receiving ~15 units of insulin per day. BSGs ranging 94 - 135 mg/dl over the past 24hrs. * Basal insulin: N/A; none needed * Correctional Insulin: Novolog Correction per scale ACHS Goal Range: Low 110 mg/dL - High 140 mg/dL Correction Factor: 25 mg/dL/unit * Prandial insulin: Per carb ratio of 1 unit per 8 grams CHO consumed BSGs continue to improve, no changes needed to inpatient regimen at this time. Pharmacy will continue to monitor patient daily and write orders per [facility] inpatient glycemic control protocol. Patient may resume outpatient glimepiride at [place]. Thanks. * Please note that the plan above was derived based on current level of insulin resistance and hospital stress. These recommendations are appropriate for innv tient admission only. Plan of care upon discharge will need to be reassessed to avoid potential outpatient hypo/hyperglycemia.
[2019-05-20] MEDS: DULOXETINE HCL 60 MG CAP PO SCH (20:15)
[2019-05-20] MEDS: SENNA 8.6 MG TAB PO SCH (20:16)
[2019-05-20] MEDS: PRAMIPEXOLE DIHYDROCHLO 0.5 MG TAB PO SCH (20:16)
[2019-05-20] MEDS: OXYBUTYNIN CHLORIDE XL 5 MG TABCR PO SCH (20:16)
[2019-05-20] MEDS: MONTELUKAST SODIUM 10 MG TABLET PO SCH (20:16)
[2019-05-21] MEDS: OXYCODONE HCL IR 5 MG TAB (IMMEDIATE RELEASE) PO PRN ×4 (04:16→21:49)
[2019-05-21] MEDS: ACETAMINOPHEN 500 MG TAB PO SCH ×3 (05:27→21:49)
[2019-05-21] MEDS: AMLODIPINE BESYLATE 5 MG TAB PO SCH (07:30)
[2019-05-21] MEDS: FEXOFENADINE HCL 180 MG TAB PO SCH (07:31)
[2019-05-21] MEDS: PANTOprazole 40 MG TAB PO SCH ×2 (07:31→21:49)
[2019-05-21] MEDS: GABAPENTIN 300 MG CAP PO SCH ×3 (07:31→21:48)
[2019-05-21] MEDS: DULOXETINE HCL 30 MG CAP PO SCH (07:31)
[2019-05-21] MEDS: MULTIVITAMIN TAB PO SCH (07:31)
[2019-05-21] MEDS: DOCUSATE SODIUM 100 MG CAP PO SCH ×2 (07:31→21:47)
--- NOTE | 2019-05-21 07:56 | Anesthesiology Progress Note ---
Date of Service May 21, 2019 Anesthesia Post Procedure Vital Signs Vital Signs: Temp Pulse Pulse Resp BP Pulse Ox 05/21/19 06:42 36.4 C L 63 20 137/75 97 05/20/19 23:20 36.9 C 63 16 112/64 98 05/20/19 16:02 36.6 C 75 16 118/68 93 Notes Mental Status: alert / awake / arousable and participated in evaluation Patient Amnestic to Procedure: Yes Nausea / Vomiting: adequately controlled Pain: adequately controlled Airway Patency, RR, SpO2: stable & adequate BP & HR: stable & adequate Hydration State: stable & adequate Anesthetic Complications: no major complications apparent
[2019-05-21] MEDS: INSULIN ASPART 100 UNITS/ML 3 ML PEN SC SCH ×4 (07:57→22:25)
[2019-05-21] MEDS: FLUTICASONE/SALMETEROL (ADVAIR) 500/50 INH 14 PUFF INH SCH ×2 (08:15→21:47)
[2019-05-21] MEDS: GLIMEPIRIDE 2 MG TAB PO SCH (10:41)
--- NOTE | 2019-05-21 11:57 | Pharmacy Report ---
Pharmacy Glycemic Short Note 2 - Date of Service May 21, 2019 - Glycemic Short BSG Results (Last 24 hours): 05/20/19 05/20/19 05/20/19 12:08 17:17 20:15 POC Glucose 116 H 125 H 106 H 05/21/19 06:36 POC Glucose 129 H OUTPATIENT ANTIDIABETIC REGIMEN: * Glimepiride 1 mg qAM ASSESSMENT: * Antonieta is POD 3 s/p shoulder arthroplasty * She continues to require minimal insulin, only bolus insulin has been necessary to sustain BSGs within goal range * Currently awaiting placement to a rehab facility * In preparation for discharge, will transition back to oral antihyperglycemic regimen, as per ADA inpatient glycemic control guidelines PLAN FOR INPATIENT GLYCEMIC CONTROL: * Resume glimepiride 1 mg po qAM * Bolus insulin * NovoLog per scale ACHS or Q6hrs while NPO * Goal Range: Low 110 mg/dL - High 140 mg/dL * Correction Factor: 25 mg/dL/unit * Remove carb ratio with resumption of glimepiride PLAN FOR DISCHARGE: * A1c - 6.6% on 04/24/19, which is below goal of < 7% for age/comorbidities * Recommend to continue glimepiride on discharge
[2019-05-21] MEDS: PRAMIPEXOLE DIHYDROCHLO 0.5 MG TAB PO SCH (21:48)
[2019-05-21] MEDS: OXYBUTYNIN CHLORIDE XL 5 MG TABCR PO SCH (21:48)
[2019-05-21] MEDS: DULOXETINE HCL 60 MG CAP PO SCH (21:48)
[2019-05-21] MEDS: MONTELUKAST SODIUM 10 MG TABLET PO SCH (21:49)
[2019-05-21] MEDS: SENNA 8.6 MG TAB PO SCH (21:49)
[2019-05-22] MEDS: OXYCODONE HCL IR 5 MG TAB (IMMEDIATE RELEASE) PO PRN ×4 (03:45→17:06)
[2019-05-22] MEDS: ACETAMINOPHEN 500 MG TAB PO SCH ×2 (06:02→13:02)
[2019-05-22] MEDS: DULOXETINE HCL 30 MG CAP PO SCH (08:17)
[2019-05-22] MEDS: DOCUSATE SODIUM 100 MG CAP PO SCH (08:17)
[2019-05-22] MEDS: GLIMEPIRIDE 2 MG TAB PO SCH (08:17)
[2019-05-22] MEDS: FEXOFENADINE HCL 180 MG TAB PO SCH (08:17)
[2019-05-22] MEDS: AMLODIPINE BESYLATE 5 MG TAB PO SCH (08:17)
[2019-05-22] MEDS: GABAPENTIN 300 MG CAP PO SCH ×2 (08:17→13:02)
[2019-05-22] MEDS: PANTOprazole 40 MG TAB PO SCH (08:17)
[2019-05-22] MEDS: MULTIVITAMIN TAB PO SCH (08:17)
[2019-05-22] MEDS: INSULIN ASPART 100 UNITS/ML 3 ML PEN SC SCH ×2 (08:33→12:50)
[2019-05-22] MEDS: FLUTICASONE/SALMETEROL (ADVAIR) 500/50 INH 14 PUFF INH SCH (08:37)
--- NOTE | 2019-05-22 16:21 | Orthopedic Progress Note ---
Date of Service May 22, 2019 Assessment & Plan (1) Rotator cuff arthropathy of left shoulder: Overall she is doing well with regards to her shoulder. Unfortunately she still having a lot of back and leg pain. She is being seen by pain management for that. She is planning to go to a rehab facility later today. She will follow-up with orthopedics in 2 weeks. Present on Admission?: Yes Subjective Antonieta was seen and examined at bedside this morning. Overall she is doing fairly well with her shoulder. She is not having much pain. She is been seen by physical therapy. She is no complaints. Physical Exam Musculoskeletal: On physical examination of the left shoulder, the dressing is clean and dry. She is neurovascular intact. She is wearing her sling as instructed. Results & Data Vital Signs (Past 12 Hours) Vital Signs Temp Pulse Pulse Resp BP Pulse Ox 05/22/19 15:38 36.6 C 75 18 133/83 90 05/22/19 07:15 36.9 C 71 18 133/84 92 PG Care Time/CCT Total # of Minutes Spent Total Time Spent with Patient: Total time spent is greater than 50% in coordination of care (as documented) at patient's floor/unit and/or counseling patient:
== END 2019-05-22 17:25 | DRG 483 ==
LOC: ASU 09:45 → 3E 16:01

== ENCOUNTER 2020-02-29 11:02 | Inpatient (IN) ==
[2020-02-29] MEDS ORDERED: KETOROLAC TROMETHAMINE 15 MG/ML VIAL IV STA (11:47)
[2020-02-29] MEDS ORDERED: SODIUM CHLORIDE 0.9% 1000ML 1,000 ML IV ONE (11:47)
[2020-02-29] MEDS ORDERED: DEXAMETHASONE **PF** INJ 10 MG/ML VIAL IV ONE (11:47)
[2020-02-29] MEDS ORDERED: ACETAMINOPHEN 1,000 MG/100 ML VIAL IV STA (11:47)
[2020-02-29 12:16] LABS: Basophils # (auto) 0.02 K/uL (0-0.2); Basophils % (auto) 0.2 %; Eosinophils # (auto) 0.14 K/uL (0-0.5); Eosinophils % (auto) 1.3 %; Hematocrit (blood only) 41.5 % (37-47); Hemoglobin 13.9 g/dL (12.0-16.0); Immature Granulocytes # (auto) 0.01 K/uL (0.00-0.02); Immature Granulocytes % (auto) 0.1 %; Lymphocytes # (auto) 2.91 K/uL (1.2-3.4); Mean Corpuscular Hgb Conc 33.5 g/dL (32-36); Mean Corpuscular Volume 95.6 fL (80-100); Mean Platelet Volume 9.6 fL (7.4-10.4); Monocytes # (auto) 1.19 K/uL (0.11-0.59); Neutrophils # (auto) 6.52 K/uL (1.4-6.5); Neutrophils % (auto) 60.4 %; Platelet Count 231 K/uL (130-400); RDW Coefficient of Variation 13.2 % (11.5-14.5); Red Blood Count 4.34 M/uL (4.2-5.4); White Blood Count 10.79 K/uL (4.8-10.8)
--- NOTE | 2020-02-29 12:20 | XRay Report ---
XR chest 1V portable CLINICAL HISTORY: Chest Pain dyspnea COMPARISON STUDY: 02/28/2020 FINDINGS: The bones soft tissues and hemidiaphragms are normal. The cardiomediastinal silhouette is n ormal. The lungs are clear. The pulmonary vasculature is normal. IMPRESSION: Mild cardiomegaly. Otherwise negative study. No change from the prior exam. ACT 112: Negative or not required by law. The above report was generated using voice recognition software. It may contain grammatical, syntax or spelling errors. Electronically signed by: Otoniel Quintero M.D. 02/29/2020 12:18 PM
[2020-02-29 12:27] LABS: Partial Thromboplastin Time 26.9 Seconds (21.0-31.0)
[2020-02-29 12:29] LABS: Appearance Urine Clear (Clear); Bilirubin Urine Negative (Negative); Blood Urine Negative (Negative); Color Urine Yellow; Glucose Urine UA Negative (Negative); Ketones Urine Negative (Negative); Leukocyte Esterase Urine Negative (Negative); Nitrite Urine Negative (Negative); Protein Urine Negative (Negative); Specific Gravity Urine 1.021 (1.000-1.030); Urobilinogen Urine Negative (Negative)
[2020-02-29 12:34] LABS: Alanine Aminotransferase 28 U/L (12-78); Albumin Level 3.6 gm/dl (3.4-5.0); Aspartate Aminotransferase 32 U/L (15-37); BUN Creatinine Ratio 21.4 (10-20); Bilirubin Direct 0.2 mg/dl (0-0.2); Blood Urea Nitrogen 18 mg/dl (7-18); Calcium 9.5 mg/dl (8.5-10.1); Carbon Dioxide 29 mmol/L (21-32); Chloride 102 mmol/L (98-107); Est GFR (African American) 85.8; Glucose 68 mg/dl (70-99); Lipase 38 U/L (73-393); Magnesium 2.1 mg/dl (1.8-2.4); Potassium 3.9 mmol/L (3.5-5.1); Sodium 136 mmol/L (136-145)
[2020-02-29 12:43] LABS: Albumin Globulin Ratio 0.7 (0.9-2); Alkaline Phosphatase 70 U/L (45-117); Bilirubin,Total 0.5 mg/dl (0.2-1); Globulin 4.9 gm/dl (2.5-4.0); Phosphorus 3.7 mg/dl (2.5-4.9); Total Protein 8.5 gm/dl (6.4-8.2); Troponin I < 0.015 ng/ml (0-0.045)
[2020-02-29] MEDS ORDERED: OPTIRAY 320 125ml IV PRN (13:02)
--- NOTE | 2020-02-29 13:06 | CT Scan Report ---
CT head/brain wo con CT DOSE: HISTORY: Mental status change confusion TECHNIQUE: Multiaxial CT images of the head were performed without the use of intravenous contrast. A dose lowering technique was utilized adhering to the principles of ALARA. Comparison: 02/28/2020 Findings: The paranasal sinuses and mastoid air cells are clear. The calvarium and skull base are int act. The ventricles and sulci are within normal limits. There is no mass, hematoma, midline shift, or acute infarct. Impression: No acute intracranial abnormality. No change from the prior exam ACT 112: Negative or not required by law. The above report was generated using voice recognition software. It may contain grammatical, syntax or spelling errors. Electronically signed by: Otoniel Quintero M.D. 02/29/2020 1:05 PM
--- NOTE | 2020-02-29 13:12 | CT Scan Report ---
CT angio neck with con HISTORY: Mental status change confusion TECHNIQUE: Multiaxial CT angiography of the neck was performed IV contrast: 118 cc nonionic All nancy urements were calculated based on NASCET criteria. Maximum intensity projection images were also obt ained. A dose lowering technique was utilized adhering to the principles of ALARA. COMPARISON STUDY: None. FINDINGS: The aortic arch and proximal great vessels are widely patent. There is no significant sten osis, occlusion, or dissection identified within the bilateral common carotid, internal carotid, or v ertebral arteries. IMPRESSION: No significant stenosis, occlusion, or dissection identified within the carotid or vertebral arteries . Compromised exam due to body habitus considerations ACT 112: Negative or not required by law. The above report was generated using voice recognition software. It may contain grammatical, syntax or spelling errors. Electronically signed by: Otoniel Quintero M.D. 02/29/2020 1:11 PM
--- NOTE | 2020-02-29 13:19 | CT Scan Report ---
HEAD CTA HISTORY: confusion TECHNIQUE: Multiaxial CT images of the head were performed following the intravenous administration o f contrast to evaluate the major cerebral vessels. Maximum intensity projection images were also obta ined. A dose lowering technique was utilized adhering to the principles of ALARA. COMPARISON: Head CT 02/28/2020. FINDINGS: The distal vertebral arteries and basilar artery are hypoplastic. This is likely developmen robert. The bilateral audiovisual aids technician are fed through the posterior communicating arteries consistent with a persis tent circulation. This is considered to be a normal variant. The major dural venous sinuses are patent. The left A1 segment is absent which is likely developmental. Bilateral A2 segments originate from the right side. Visualized intracranial internal carotid arteries, distal vertebral arteries, a nd basilar artery are widely patent. There is no significant stenosis, occlusion, or aneurysm seen wi thin the bilateral ACAs, MCAs, or audiovisual aids technician. IMPRESSION: No significant stenosis, occlusion, or aneurysm within the [place]. ACT 112: Negative or not required by law. Electronically signed by: Bean Landon M.D. 02/29/2020 1:18 PM
--- NOTE | 2020-02-29 15:46 | Emergency Department Note ---
Impression & Plan Aphasia, Acute Lyme disease, Acute urinary retention, Lumbar spinal stenosis, Intermittent confusion ED Provider Note NAME: SHONDA KAUR AGE: 69 SEX: F ARRIVES VIA: Walk-In INFORMANT: [Patient][, ] ED PROVIDER(S): Dieudonne Owens MD CHIEF COMPLAINT: Confusion, aphasia. PLAN: Disposition: Admit MEDICAL DECISION MAKING: The patient is a pleasant 69-year-old woman with a past medical history of morbid obesity, fibromyalgia, spinal stenosis where she is wheelchair-bound, COPD who presents emergency department for evaluation of confusion/drowsiness with slurred and incoherent speech she was at her urology appointment today. The patient symptoms occur in the setting of being seen in the emergency department yesterday for numerous complaints including ongoing chronic diffuse body pain and aches as well as vaginal pain and burning that his going on since May. Patient had a negative CT scan of her head as well as CT of her a bdomen pelvis yesterday. She was diagnosed with acute Lyme disease with Lyme screen being positive for IgM and IgG antibodies. She was started on doxycycline. Patient reports that she has had waxing and waning trouble speaking including finding words and articulating them for the past 2 months. She says she has seen her doctor during this time but never thinks to mention it. Denies any fevers, cough, chest pain, shortness of breath, nausea, vomiting, diarrhea. On arrival the patient is in no acute distress, afebrile with stable vital signs. Her speech is fluent and while coherent certainly has a degree of tangential thinking and is difficult to follow when she relates her history. She is overall a very poor historian regarding her medical history and symptoms. He moves all extremities equally without any focal neuro deficits. Of note, the patient's RN did obtain a straight cath urine from the patient and removed approximately 1 L of clear yellow urine. When asked if the patient thought she needed to urinate she said she did not. However it is unclear whether or not she actually could not urinate. Given the patient had a CT scan of her abdomen pelvis yesterday that did not demonstrate any hydronephrosis it is unlikely that she is had this degree of urinary retention chronically. EKG without overt acute ischemia. Chest x-ray was negative for acute process. WBC, H/H and platelets within normal limits. Chemistry without acidosis. Glucose 68 patient was provided with meal. Electrolytes and LFTs otherwise unremarkable. Troponin negative/undetectable. Lipase is not elevated. UA negative for infection. CTA of the head and neck was performed and was negative for ischemia, ICH or severe narrowing or occlusion of large vessels. Unclear nature to the patient's reported neurologic symptoms which were witnessed at her urology appointment today reasonable to admit the patient for further evaluation including possible MRI. The patient's recent Lyme diagnosis unclear if this may be playing a role. She was started on doxycycline yesterday however will treat with ceftriaxone for now. Patient is agreeable with plan for admission. Case was d/w Brenda Mota [facility], with Dr. Buckner who will evaluate the patient for admission. Triage Nursing notes reviewed and agree them. [Prior medical records reviewed] [] Vital Signs: reviewed and remarkable for [no significant abnormalities] Differential diagnosis: Infection, dehydration, metabolic abnormality, hypo/hyperglycemia, electrolyte disturbance, anemia, hypoxia, cardiac sources, intracerebral event, toxicologic, neurologic, as well as other pathologies. ER treatment provided: See below. Diagnostics interpreted by me: ECG: Normal sinus rhythm, 80 bpm, no ectopy, no overt ST elevation or depression, QTC 461, QRS 90. Cardiac Monitoring: An order for continuous cardiac monitoring was placed and demonstrated normal sinus rhythm, 80 bpm, no ectopy. Laboratory studies: [See below] [] Imaging studies: XR chest 1V portable CLINICAL HISTORY: Chest Pain dyspnea COMPARISON STUDY: 02/28/2020 FINDINGS: The bones soft tissues and hemidiaphragms are normal. The car diomediastinal silhouette is normal. The lungs are clear. The pulmonary vasculature is normal. IMPRESSION: Mild cardiomegaly. Otherwise negative study. No change from the prior exam. -- CT head/brain wo con CT DOSE: HISTORY: Mental status change confusion TECHNIQUE: Multiaxial CT images of the head were performed without the use of intravenous contrast. A dose lowering technique was utilized adhering to the principles of ALARA. Comparison: 02/28/2020 Findings: The paranasal sinuses and mastoid air cells are clear. The calvarium and skull base are intact. The ventricles and sulci are within normal limits. There is no mass, hematoma, midline shift, or acute infarct. Impression: No acute intracranial abnormality. No change from the prior exam -- CT angio neck with con HISTORY: Mental status change confusion TECHNIQUE: Multiaxial CT angiography of the neck was performed IV contrast: 118 cc nonionic All measurements were calculated based on NASCET criteria. Maximum intensity projection images were also obtained. A dose lowering technique was utilized adhering to the principles of ALARA. COMPARISON STUDY: None. FINDINGS: The aortic arch and proximal great vessels are widely patent. There is no significant stenosis, occlusion, or dissection identified within the bilateral common carotid, internal carotid, or vertebral arteries. IMPRESSION: No significant stenosis, occlusion, or dissection identified within the carotid or vertebral arteries. Compromised exam due to body habitus considerations -- HEAD CTA HISTORY: confusion TECHNIQUE: Multiaxial CT images of the head were performed following the intravenous administration of contrast to evaluate the major cerebral vessels. Maximum intensity projection images were also obtained. A dose lowering techn ique was utilized adhering to the principles of ALARA. COMPARISON: Head CT 02/28/2020. FINDINGS: The distal vertebral arteries and basilar artery are hypoplastic. This is likely developmental. The bilateral first assistant are fed through the posterior communicating arteries consistent with a persistent circulation. This is considered to be a normal variant. The major dural venous sinuses are patent. The left A1 segment is absent which is likely developmental. Bilateral A2 segments originate from the right side. Visualized intracranial internal carotid arteries, distal vertebral arteries, and basilar artery are widely patent. There is no significant stenosis, occlusion, or aneurysm seen within the bilateral ACAs, MCAs, or first assistant. IMPRESSION: No significant stenosis, occlusion, or aneurysm within the [place]. Consultation(s): Case was d/w Brenda Mota [facility], with Dr. Buckner who will evaluate the patient for admission. HPI: The patient is a pleasant 69-year-old woman with a past medical history of morbid obesity, fibromyalgia, spinal stenosis where she is wheelchair-bound, COPD who presents emergency department for evaluation of confusion/drowsiness with slurred and incoherent speech she was at her urology appointment today. The patient symptoms occur in the setting of being seen in the emergency department yesterday for numerous complaints including ongoing chronic diffuse body pain and aches as well as vaginal pain and burning that his going on since May. Patient had a negative CT scan of her head as well as CT of her abdomen pelvis yesterday. She was diagnosed with acute Lyme disease with Lyme screen being positive for IgM and IgG antibodies. She was started on doxycycline. Patient reports that she has had waxing and waning trouble speaking including finding words and articulating them for the past 2 months. She says she has seen her doctor during this time but never thinks to mention it. Denies any fevers, cough, chest pain, shortness of breath, nausea, vomiting, diarrhea. ROS: See above HPI for pertinent positives & negatives. A total of [10] systems reviewed and were otherwise negative. PAST MEDICAL HISTORY:[See Below] PAST SURGICAL HISTORY:[See Below] FAMILY HISTORY:[See Below] SOCIAL HISTORY:[See Below] HOME MEDICATIONS:[See Below] ALLERGIES:[See Below] VITALS:[See Below] PHYSICAL EXAMINATION: GENERAL: Awake, alert, well-appearing, in no distress HENT: Normocephalic, atraumatic. Oropharynx with dry mucous membranes and o therwise unremarkable. EYES: Normal conjunctiva. Sclera non-icteric. EOMI. No nystamgus. PEARRL. NECK: Supple. No nuchal rigidity. FROM. No JVD. RESPIRATORY: Clear to auscultation. CARDIAC: Regular rate, normal rhythm. Extremities warm and well perfused. Pulses equal. ABDOMEN: Soft, non-distended. No tenderness to palpation. No rebound or guarding. No masses. RECTAL: Deferred. MUSCULOSKELETAL: Chest examination reveals no tenderness. The back is symmetrical on inspection without obvious abnormality. There is no CVA tenderness to palpation. No joint edema. LOWER EXTREMITIES: Calves are equal size bilaterally and non-tender. No edema. No discoloration. NEURO: Normal sensorium. No focal sensory or motor deficits noted. SKIN: No rash or jaundice noted. Dieudonne Owens MD Past Med/Surg History Medical History Anxiety Asthma stable COPD (chronic obstructive pulmonary disease) Stable and controlled Depressive disorder Diabetes mellitus NIDDM- stable and controlled per patient Fibromyalgia Constant pain Gastroparesis GERD (gastroesophageal reflux disease) controlled History of ear infection hx recurrent ear infections s/p drainage tube in left ear - no recent issues History of urinary incontinence chronic History of urinary urgency chronic Hyperlipidemia Hypertension Lumbar spinal stenosis Severe at L3-4 Mixed conductive and sensorineural hearing loss Morbid obesity On home oxygen therapy 3LPM at HS Restless leg syndrome Sleep apnea CPAP Surgical History H/O: hysterectomy History of cholecystectomy History of esophagogastroduodenoscopy (EGD) History of left knee replacement History of left shoulder replacement History of repair of right rotator cuff History of right knee joint replacement History of surgery on upper extremity LET ARM ABSCESS History of tonsillectomy History of tooth extraction all teeth Hx of colonoscopy Family History Brother Family history of diabetes mellitus Sister Family history of diabetes mellitus Mother Family history of diabetes mellitus Stroke Aunt Family history of diabetes mellitus Father Myocardial infarction Denies family history of Ovarian cancer Prostate cancer Breast cancer Colorectal cancer Social History Preferred Language: Setswana Communication Ability: Effective Logistics Supervisor Required: No Beliefs That Will Affect Care: None marital status: Current Living Situation: Alone Feels Safe at Home: Yes Smoking Status: Never smoker Second Hand Exposure: Yes ; Hx Alcohol Use: No Hx Substance Use: No Allergies Allergies Allergy/AdvReac Type Severity Reaction Status Date / Time cetirizine Allergy Intermediate RASH Verified 02/29/20 12:56 metformin AdvReac Unknown GI upset Verified 02/29/20 12:56 Home Meds Home Medications Medication Instructions Recorded Confirmed cholecalciferol (vitamin D3) 25 3,000 units PO QAM cap 01/26/19 02/29/20 mcg (1,000 unit) capsule biotin 5,000 mcg PO QAM 04/18/19 02/29/20 fexofenadine 180 mg PO QAM 04/18/19 02/29/20 fluticasone propionate 2 sprays INTNAS DAILY PRN 04/18/19 02/29/20 duloxetine [Cymbalta] 30 mg PO BID 02/15/20 02/29/20 furosemide [Lasix] 40 mg PO QAM 02/15/20 02/29/20 oxybutynin chloride 40 mg PO HS 02/15/20 02/29/20 acetaminophen [Tylenol] 325 mg PO QID PRN 02/28/20 02/29/20 montelukast [Singulair] 10 mg PO HS 02/28/20 02/29/20 pramipexole [Mirapex] 0.5 mg PO HS 02/28/20 02/29/20 Previous Rx's Medication Instructions Recorded albuterol sulfate 2.5 mg INH QID PRN #90 ml 01/22/19 blood sugar diagnostic #200 ea 01/22/19 lancets #200 ea 01/22/19 pen needle, diabetic 31 gauge x #100 ea 01/22/19 3/" duloxetine 60 mg capsule,delayed 60 mg PO HS #90 cap 02/28/19 release meloxicam 7.5 mg tablet 7.5 mg PO BID #60 tab 05/02/19 albuterol sulfate 90 mcg/actuation 2 puffs INH Q6H PRN #18 gm 01/03/20 aerosol inhaler amlodipine 10 mg tablet 10 mg PO QAM #90 tab 01/03/20 fluticasone 500 mcg-salmeterol 50 1 puffs INHALATION BID #60 ea 01/03/20 mcg/dose blistr powdr for inhalation glimepiride 1 mg tablet 1 mg PO QAM #90 tab 01/03/20 Wheelchair (Manual or Powered) #1 ea 01/21/20 compr.stocking,knee,long,large #12 ea 01/21/20 baclofen 10 mg tablet 10 mg PO BID PRN #60 tab 01/22/20 potassium chloride 10 mEq 10 meq PO BID #30 cap 02/04/20 capsule,extended release tramadol 50 mg tablet 100 mg PO Q6H PRN #90 tab 02/19/20 gabapentin 300 mg capsule 300 mg PO .COMPLEX #180 cap 02/25/20 pantoprazole 40 mg tablet,delayed 40 mg PO BID #180 tab 02/25/20 release doxycycline hyclate 100 mg PO BID 21 Days #42 tab 02/28/20 Results & Data (ED) Vital Signs Vital Signs - 24 hr 02/29/20 11:08 02/29/20 13:15 02/29/20 13:18 Temperature 36.8 C Temperature Source Oral Pulse Rate 97 H 82 85 Pulse Rate [Finger] Respiratory Rate 20 23 20 Respiratory Effort / Characteristics Non-Labored Respiratory Depth Normal Blood Pressure 97/48 L 139/122 H 139/122 H Blood Pressure [Right Arm] Blood Pressure Mean 64 123 127 Blood Pressure Mean [Right Arm] Pulse Oximetry 95 92 Oxygen Delivery Method Room Air Room Air Sepsis Recent Fever Within 48 Hours No Sepsis New/Unexplained Change in Mental Status No Sepsis Action Taken by Nursing No Action Required 02/29/20 13:24 02/29/20 13:30 02/29/20 14:00 Temperature Temperature Source Pulse Rate 87 Pulse Rate [Finger] Respiratory Rate 13 13 25 H Respiratory Effort / Characteristics Respiratory Depth Blood Pressure Blood Pressure [Right Arm] Blood Pressure Mean Blood Pressure Mean [Right Arm] Pulse Oximetry Oxygen Delivery Method Sepsis Recent Fever Within 48 Hours Sepsis New/Unexplained Change in Mental Status Sepsis Action Taken by Nursing 02/29/20 14:07 02/29/20 14:30 02/29/20 14:40 Temperature Temperature Source Pulse Rate 84 Pulse Rate [Finger] Respiratory Rate 23 17 23 Respiratory Effort / Characteristics Respiratory Depth Blood Pressure 146/83 H Blood Pressure [Right Arm] Blood Pressure Mean 110 Blood Pressure Mean [Right Arm] Pulse Oximetry Oxygen Delivery Method Room Air Sepsis Recent Fever Within 48 Hours Sepsis New/Unexplained Change in Mental Status Sepsis Action Taken by Nursing 02/29/20 14:50 02/29/20 15:00 02/29/20 15:10 Temperature Temperature Source Pulse Rate Pulse Rate [Finger] Respiratory Rate 38 H 35 H 43 H Respiratory Effort / Characteristics Respiratory Depth Blood Pressure Blood Pressure [Right Arm] Blood Pressure Mean Blood Pressure Mean [Right Arm] Pulse Oximetry Oxygen Delivery Method Room Air Room Air Room Air Sepsis Recent Fever Within 48 Hours Sepsis New/Unexplained Change in Mental Status Sepsis Action Taken by Nursing 02/29/20 16:21 Temperature Temperature Source Pulse Rate Pulse Rate [Finger] 91 H Respiratory Rate 20 Respiratory Effort / Characteristics Non-Labored Spontaneous Respiratory Depth Normal Blood Pressure Blood Pressure [Right Arm] 143/74 H Blood Pressure Mean Blood Pressure Mean [Right Arm] 97 Pulse Oximetry 92 Oxygen Delivery Method Room Air Sepsis Recent Fever Within 48 Hours Sepsis New/Unexplained Change in Mental Status Sepsis Action Taken by Nursing Laboratory Data Result diagrams: 02/29/20 12:00 02/29/20 12:00 Lab Results 02/29/20 02/29/20 02/29/20 Range/Units 12:00 12:00 12:00 WBC 10.79 (4.8-10.8) K/uL RBC 4.34 (4.2-5.4) M/uL Hgb 13.9 (12.0-16.0) g/dL Hct 41.5 (37-47) % MCV 95.6 (80-100) fL MCH 32.0 (25-34) pg MCHC 33.5 (32-36) g/dL RDW Std Deviation 46.0 (36.4-46.3) fL RDW Coeff of [place]ant 13.2 (11.5-14.5) % Plt Count 231 (130-400) K/uL MPV 9.6 (7.4-10.4) fL Immature Gran % (Auto) 0.1 % Neut % (Auto) 60.4 % Lymph % (Auto) 27.0 % [place] % (Auto) 11.0 % Eos % (Auto) 1.3 % Baso % (Auto) 0.2 % Neut # (Auto) 6.52 H (1.4-6.5) K/uL Lymph # (Auto) 2.91 (1.2-3.4) K/uL [place] # (Auto) 1.19 H (0.11-0.59) K/uL Eos # (Auto) 0.14 (0-0.5) K/uL Baso # (Auto) 0.02 (0-0.2) K/uL Immature Gran # (Auto) 0.01 (0.00-0.02) K/uL PT 11.0 (9.0-12.0) Seconds INR 1.0 (0.9-1.1) APTT 26.9 (21.0-31.0) Seconds PTT Ratio 1.0 Sodium 136 (136-145) mmol/L Potassium 3.9 (3.5-5.1) mmol/L Chloride 102 (98-107) mmol/L Carbon Dioxide 29 (21-32) mmol/L Anion Gap 5.0 (3-11) BUN 18 (7-18) mg/dl Creatinine 0.82 (0.6-1.2) mg/dl Est Cr Clr Drug Dosing Not Reportable Est GFR ( Amer) 85.8 Est GFR (Non-Af Amer) 74.0 BUN/Creatinine Ratio 21.4 H (10-20) Glucose 68 L (70-99) mg/dl Calcium 9.5 (8.5-10.1) mg/dl Phosphorus 3.7 (2.5-4.9) mg/dl Magnesium 2.1 (1.8-2.4) mg/dl Total Bilirubin 0.5 (0.2-1) mg/dl Direct Bilirubin 0.2 (0-0.2) mg/dl AST 32 (15-37) U/L ALT 28 (12-78) U/L Alkaline Phosphatase 70 (45-117) U/L Troponin I < 0.015 (0-0.045) ng/ml Total Protein 8.5 H (6.4-8.2) gm/dl Albumin 3.6 (3.4-5.0) gm/dl Globulin 4.9 H (2.5-4.0) gm/dl Albumin/Globulin Ratio 0.7 L (0.9-2) Lipase 38 L (73-393) U/L TSH 1.020 (0.300-4.500) uIu/ml Urine Color Urine Appearance (Clear) Urine pH (4.5-7.5) Ur Specific [place] (1.000-1.030) Urine Protein (Negative) Urine Glucose (UA) (Negative) Urine Ketones (Negative) Urine Blood (Negative) Urine Nitrite (Negative) Urine Bilirubin (Negative) Urine Urobilinogen (Negative) Ur Leukocyte Esterase (Negative) Urine Opiates Screen (Neg) Ur Methadone, Qual (Neg) Urine Barbiturates (Neg) Ur Phencyclidine (PCP) (Neg) U Amphetamin/Meth Scrn (Neg) MDMA (Ecstasy) Screen (Neg) U Benzodiazepines Scrn (Neg) Ur Cocaine Metabolite (Neg) U Marijuana (THC) Screen (Neg) 02/29/20 02/29/20 Range/Units 12:10 12:10 WBC (4.8-10.8) K/uL RBC (4.2-5.4) M/uL Hgb (12.0-16.0) g/dL Hct (37-47) % MCV (80-100) fL MCH (25-34) pg MCHC (32-36) g/dL RDW Std Deviation (36.4-46.3) fL RDW Coeff of Shant (11.5-14.5) % Plt Count (130-400) K/uL MPV (7.4-10.4) fL Immature Gran % (Auto) % Neut % (Auto) % Lymph % (Auto) % [place] % (Auto) % Eos % (Auto) % Baso % (Auto) % Neut # (Auto) (1.4-6.5) K/uL Lymph # (Auto) (1.2-3.4) K/uL [place] # (Auto) (0.11-0.59) K/uL Eos # (Auto) (0-0.5) K/uL Baso # (Auto) (0-0.2) K/uL Immature Gran # (Auto) (0.00-0.02) K/uL PT (9.0-12.0) Seconds INR (0.9-1.1) APTT (21.0-31.0) Seconds PTT Ratio Sodium (136-145) mmol/L Potassium (3.5-5.1) mmol/L Chloride (98-107) mmol/L Carbon Dioxide (21-32) mmol/L Anion Gap (3-11) BUN (7-18) mg/dl Creatinine (0.6-1.2) mg/dl Est Cr Clr Drug Dosing Est GFR ( Amer) Est GFR (Non-Af Amer) BUN/Creatinine Ratio (10-20) Glucose (70-99) mg/dl Calcium (8.5-10.1) mg/dl Phosphorus (2.5-4.9) mg/dl Magnesium (1.8-2.4) mg/dl Total Bilirubin (0.2-1) mg/dl Direct Bilirubin (0-0.2) mg/dl AST (15-37) U/L ALT (12-78) U/L Alkaline Phosphatase (45-117) U/L Troponin I (0-0.045) ng/ml Total Protein (6.4-8.2) gm/dl Albumin (3.4-5.0) gm/dl Globulin (2.5-4.0) gm/dl Albumin/Globulin Ratio (0.9-2) Lipase (73-393) U/L TSH (0.300-4.500) uIu/ml Urine Color Yellow Urine Appearance Clear (Clear) Urine pH 5.0 (4.5-7.5) Ur Specific [place] 1.021 (1.000-1.030) Urine Protein Negative (Negative) Urine Glucose (UA) Negative (Negative) Urine Ketones Negative (Negative) Urine Blood Negative (Negative) Urine Nitrite Negative (Negative) Urine Bilirubin Negative (Negative) Urine Urobilinogen Negative (Negative) Ur Leukocyte Esterase Negative (Negative) Urine Opiates Screen Neg (Neg) Ur Methadone, Qual Neg (Neg) Urine Barbiturates Neg (Neg) Ur Phencyclidine (PCP) Neg (Neg) U Amphetamin/Meth Scrn Neg (Neg) MDMA (Ecstasy) Screen Neg (Neg) U Benzodiazepines Scrn Neg (Neg) Ur Cocaine Metabolite Neg (Neg) U Marijuana (THC) Screen Neg (Neg) Administered Medications Doxycycline Hyclate (Vibramycin) 100 mg PO BID [facility] Stop: 03/20/20 20:59 Last Admin: 02/29/20 20:54 Dose: 100 mg Documented by: [id number] Duloxetine HCl (Cymbalta) 60 mg PO [facility] Stop: 03/30/20 20:59 Last Admin: 02/29/20 20:49 Dose: 60 mg Documented by: [id number] Duloxetine HCl (Cymbalta) 30 mg PO BID [facility] Stop: 03/30/20 20:59 Last Admin: 02/29/20 20:49 Dose: 30 mg Documented by: [id number] Gabapentin (Neurontin) 900 mg PO [facility] Stop: 03/30/20 20:59 Last Admin: 02/29/20 20:53 Dose: 900 mg Documented by: [id number] Ioversol (Optiray 320 125ml) 119 ml IV ONCE PRN PRN Reason: Interaction Checking Stop: 03/04/20 13:01 Last Admin: 02/29/20 13:02 Dose: 119 ml Documented by: [id number] Montelukast Sodium (Singulair) 10 mg PO [facility] Stop: 03/30/20 20:59 Last Admin: 02/29/20 20:54 Dose: 10 mg Documented by: [id number] Oxybutynin Chloride (Ditropan Xl) 40 mg PO [facility] Stop: 03/30/20 20:59 Last Admin: 02/29/20 21:28 Dose: 40 mg Documented by: [id number] Pantoprazole Sodium (Protonix) 40 mg PO BID [facility] Stop: 03/30/20 20:59 Last Admin: 02/29/20 20:54 Dose: 40 mg Documented by: [id number] Potassium Chloride (Klor-Con M10) 10 meq PO BID [facility] Stop: 03/30/20 20:59 Last Admin: 02/29/20 20:53 Dose: 10 meq Documented by: [id number] Pramipexole Dihydrochloride (Mirapex) 0.5 mg PO HS [facility] Stop: 03/30/20 20:59 Last Admin: 02/29/20 20:53 Dose: 0.5 mg Documented by: [id number] Discontinued Medications Dexamethasone Sodium Phosphate (Decadron Pf) 10 mg IV NOW ONE Stop: 02/29/20 11:48 Last Admin: 02/29/20 12:06 Dose: 10 mg Documented by: [id number] Sodium Chloride (Nss 1000ml) 1,000 mls @ 999 mls/hr IV .Q1H1M ONE Stop: 02/29/20 12:47 Last Infusion: 02/29/20 12:49 Dose: 0 mls/hr Documented by: [id number] Admin: 02/29/20 12:05 Dose: 999 mls/hr Documented by: [id number] Acetaminophen (Ofirmev) 1,000 mg in 100 mls @ 400 mls/hr IV NOW STA Stop: 02/29/20 12:01 Last Infusion: 02/29/20 12:20 Dose: 0 mls/hr Documented by: [id number] Admin: 02/29/20 12:07 Dose: 400 mls/hr Documented by: [id number] Ceftriaxone Sodium (Rocephin) 2,000 mg in 70 mls @ 140 mls/hr IV NOW STA Stop: 02/29/20 16:28 Last Infusion: 02/29/20 16:53 Dose: 0 mls/hr Documented by: [id number] Admin: 02/29/20 16:22 Dose: 140 mls/hr Documented by: [id number] Ketorolac Tromethamine (Toradol) 15 mg IV NOW STA Stop: 02/29/20 11:48 Last Admin: 02/29/20 12:05 Dose: 15 mg Documented by: [id number] Discharge Plan Visit Data *Final* Discharge Date/Time: 02/29/20 19:26 Chief Complaint: Referred by Doctor Stated Complaint: REFERRED BY DOCTOR ED Provider: Dieudonne Owens Discharge Problem: Aphasia, Acute Lyme disease, Acute urinary retention, Lumbar spinal stenosis, Intermittent confusion Patient Disposition: Admitted As Inpatient Discharge Instructions Interventions: ED Discharge Assessment Last Done: 02/29/20 19:26 Discharge Problem: Lumbar spinal stenosis Qualifiers: Neurogenic claudication status: unspecified Qualified Code(s): M48.061 - Spinal stenosis, lumbar region without neurogenic claudication
[2020-02-29] MEDS ORDERED: cefTRIAXone SODIUM 2,000 MG/70 ML BAG IV STA (15:59)
--- NOTE | 2020-02-29 17:18 | History & Physical Report ---
Date of Service February 29, 2020 Assessment & Plan (1) Intermittent confusion: This is a pleasant 69 yo female who is presenting with this odd history of intermittent confusion. What makes this interesting is how detailed she is with her confusion in regards to timing and how long is occurs. When she mentions how she is zoning out, starts zoning out mid sentence as if s=this was right on cure. She was diagnosed recently with lyme disease but her presentation goes more with malingering. Will prefer to have a psych consult initially before further workup. May also consider MRI of brain, ut unsure how long patient can be still, and also EEG. (2) Acute Lyme disease: resume doxycycline. Newly diagnosed the day prior (3) Fatigue: secondary to problem one (4) HTN (hypertension): resume home emds (5) GERD (gastroesophageal reflux disease): resume ppi stable (6) Diabetes mellitus: A1C is 6.5, will recommend monitoring blood sugars DVT: on old as antciipate [facility]y (7) Fibromyalgia: Controlled. On gabapentin 300 mg in AM 600 mg afternoon, 900 HS. Cymbalta 30 mg BID. Patient took 60 mg in evening, will hold dose in AM. History of Present Illness Chief Complaint: confusion Primary Care Provider: Bismark Ronquillo MD 69 yo female is an odd historian. She reports that she is confused, and states that she gets confused intermittently throughout the day. This confusion lasts for a few minutes and is accompanied by myoclonic jerky movements of her arms. She then reports that she begins to whisper. She does not provide more history and her caregiver is not in the ER. While reviewing her Urology outpatient visit today, it appears she would zone out midsentence. Patient states this has kassy ongoing for the past 2-3 weeks. Allergies Allergy/AdvReac Type Severity Reaction Status Date / Time cetirizine Allergy Intermediate RASH Verified 02/29/20 12:56 metformin AdvReac Unknown GI upset Verified 02/29/20 12:56 Home Medications Home Medications Medication Instructions Recorded Confirmed Type albuterol sulfate 2.5 mg INH QID PRN #90 ml 01/22/19 02/29/20 Rx blood sugar diagnostic #200 ea 01/22/19 02/29/20 Rx lancets #200 ea 06/10/19 07/17/20 Rx pen needle, diabetic 31 gauge x #100 ea 01/22/19 02/29/20 Rx 3/16" cholecalciferol (vitamin D3) 25 3,000 units PO QAM cap 01/26/19 02/29/20 History mcg (1,000 unit) capsule duloxetine 60 mg capsule,delayed 60 mg PO HS #90 cap 02/28/19 02/29/20 Rx release biotin 5,000 mcg PO QAM 04/18/19 02/29/20 History fexofenadine 180 mg PO QAM 04/18/19 02/29/20 History fluticasone propionate 2 sprays INTNAS DAILY PRN 04/18/19 02/29/20 History meloxicam 7.5 mg tablet 7.5 mg PO BID #60 tab 05/02/19 02/29/20 Rx albuterol sulfate 90 mcg/actuation 2 puffs INH Q6H PRN #18 gm 01/03/20 02/29/20 Rx aerosol inhaler amlodipine 10 mg tablet 10 mg PO QAM #90 tab 01/03/20 02/29/20 Rx fluticasone 500 mcg-salmeterol 50 1 puffs INHALATION BID #60 ea 01/03/20 02/29/20 Rx mcg/dose blistr powdr for inhalation glimepiride 1 mg tablet 1 mg PO QAM #90 tab 01/03/20 02/29/20 Rx Wheelchair (Manual or Powered) #1 ea 01/21/20 02/29/20 Rx compr.stocking,knee,long,large #12 ea 01/21/20 02/29/20 Rx baclofen 10 mg tablet 10 mg PO BID PRN #60 tab 01/22/20 02/29/20 Rx potassium chloride 10 mEq 10 meq PO BID #30 cap 02/04/20 02/29/20 Rx capsule,extended release duloxetine [Cymbalta] 30 mg PO BID 02/15/20 02/29/20 History furosemide [Lasix] 40 mg PO QAM 02/15/20 02/29/20 History oxybutynin chloride 40 mg PO HS 02/15/20 02/29/20 History tramadol 50 mg tablet 100 mg PO Q6H PRN #90 tab 02/19/20 02/29/20 Rx gabapentin 300 mg capsule 300 mg PO .COMPLEX #180 cap 02/25/20 02/29/20 Rx pantoprazole 40 mg tablet,delayed 40 mg PO BID #180 tab 02/25/20 02/29/20 Rx release acetaminophen [Tylenol] 325 mg PO QID PRN 02/28/20 02/29/20 History doxycycline hyclate 100 mg PO BID 21 Days #42 tab 02/28/20 02/29/20 Rx montelukast [Singulair] 10 mg PO HS 02/28/20 02/29/20 History pramipexole [Mirapex] 0.5 mg PO HS 02/28/20 02/29/20 History Past Med/Surg History Medical History Anxiety Asthma stable COPD (chronic obstructive pulmonary disease) Stable and controlled Depressive disorder Diabetes mellitus NIDDM- stable and controlled per patient Fibromyalgia Constant pain Gastroparesis GERD (gastroesophageal reflux disease) controlled History of ear infection hx recurrent ear infections s/p drainage tube in left ear - no recent issues History of urinary incontinence chronic History of urinary urgency chronic Hyperlipidemia Hypertension Lumbar spinal stenosis Severe at L3-4 Mixed conductive and sensorineural hearing loss Morbid obesity On home oxygen therapy 3LPM at HS Restless leg syndrome Sleep apnea CPAP Surgical History H/O: hysterectomy History of cholecystectomy History of esophagogastroduodenoscopy (EGD) History of left knee replacement History of left shoulder replacement History of repair of right rotator cuff History of right knee joint replacement History of surgery on upper extremity LET ARM ABSCESS History of tonsillectomy History of tooth extraction all teeth Hx of colonoscopy Family History Brother Family history of diabetes mellitus Sister Family history of diabetes mellitus Mother Family history of diabetes mellitus Stroke Aunt Family history of diabetes mellitus Father Myocardial infarction Denies family history of Ovarian cancer Prostate cancer Breast cancer Colorectal cancer Social History Preferred Language: Sinhala Communication Ability: Effective 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: No Beliefs That Will Affect Care: None marital status: Current Living Situation: Alone Other Information That Helps Us Care for You: No Feels Safe at Home: Hesitant to Answer Safety Concerns: Afraid for Self Smoking Status: Never smoker Second Hand Exposure: Yes ; Hx Alcohol Use: No Hx Substance Use: No Review of Systems Constitutional: + fatigue and + malaise Eyes: no diplopia and no decreased night vision Ear, Nose, Mouth, Throat: no dizziness Respiratory: no cough Cardiovascular: no dyspnea at rest Gastrointestinal: no bloating Genitourinary: no urinary frequency Musculoskeletal: no back pain and no loss of height Integumentary: no rash Neurologic: + abnormal movements Psychiatric: no hopelessness and no change in appetite Endocrine: no polydipsia Hematologic / Lymphatic: no lymphadenopathy Physical Exam Constitutional: WD/WN, vitals as above (would suddenly have myoclonic movements when touched.) + morbidly obese; no acute distress Eyes: PERRL, conjunctivae normal, anicteric sclerae ENMT: external ear and nose normal, oropharynx normal Neck: trachea midline, no thyromegaly Respiratory: normal respiratory effort, lungs clear to auscultation Cardiovascular: RRR, no murmur, no edema Gastrointestinal (Abdomen): normal bowel sounds, soft, nontender, no hepatosplenomegaly Musculoskeletal: Head/Neck/Chest: normocephalic Neurologic: PERRL, EOMI, accommodation nl, no face palsy, no dysarthria Psychiatric: Orientation: alert, oriented to person and oriented to place; + not oriented to time Results & Data Results & Data ([facility]) Vital Signs (Past 12 Hours) Vital Signs Temp Pulse Pulse Resp BP BP Pulse Ox 02/29/20 16:21 91 H 20 143/74 H 92 02/29/20 15:10 43 H 02/29/20 15:00 35 H 02/29/20 14:50 38 H 02/29/20 14:40 23 02/29/20 14:30 17 02/29/20 14:07 84 23 146/83 H 02/29/20 14:00 25 H 02/29/20 13:30 87 13 02/29/20 13:24 13 02/29/20 13:18 85 20 139/122 H 92 02/29/20 13:15 82 23 139/122 H 02/29/20 11:08 36.8 C 97 H 20 97/48 L 95 PG Care Time/CCT Total # of Minutes Spent Total Time Spent with Patient: Total time spent is greater than 50% in coordination of care (as documented) at patient's floor/unit and/or counseling patient: Coding Level of Care Code 79351 Initial Inpt Care Lvl 3 Diagnoses Intermittent confusion R41.0 Acute Lyme disease A69.20 Fatigue R53.83 Fatigue type: unspecified HTN (hypertension) I10 GERD (gastroesophageal reflux disease) K21.9 Diabetes mellitus E11.9 Fibromyalgia M79.7 Time Spent (min) 50 (1) Fatigue Fatigue type: unspecified Qualified Code(s): R53.83 - Other fatigue
[2020-02-29 18:05] LABS: Amphetamines+Metham, Urine Neg (Neg); Barbiturates, Urine Neg (Neg); Benzodiazepine, Urine Neg (Neg); Cocaine, Urine Neg (Neg); MDMA (Ecstacy), Urine Neg (Neg); Methadone, Urine Neg (Neg); Opiate, Urine Neg (Neg); Phencyclidine, Urine Neg (Neg)
--- NOTE | 2020-02-29 18:09 | Electrocardiogram Report ---
Test Reason : Blood Pressure : / mmHG Vent. Rate : 080 BPM Atrial Rate : 080 BPM P-R Int : 152 ms QRS Dur : 090 ms QT Int : 400 ms P-R-T Axes : 025 -04 031 degrees QTc Int : 461 ms Normal sinus rhythm Normal ECG When compared with ECG of 28-FEB-2020 13:54, No significant change was found Confirmed by Bismark Francis ([id number]) on 02/29/2020 6:09:30 PM Referred By: Estephanie Hurley Confirmed By:Elton Francis
[2020-02-29] MEDS: POTASSIUM CHLORIDE 10 MEQ TABCR PO SCH (20:53)
[2020-02-29] MEDS: PRAMIPEXOLE DIHYDROCHLO 0.5 MG TAB PO SCH (20:53)
[2020-02-29] MEDS: MONTELUKAST SODIUM 10 MG TABLET PO SCH (20:54)
[2020-02-29] MEDS: PANTOprazole 40 MG TAB PO SCH (20:54)
[2020-02-29] MEDS: DOXYCYCLINE HYCLATE 100 MG CAP PO SCH (20:54)
[2020-02-29] MEDS ORDERED: GABAPENTIN 300 MG CAP PO SCH (21:00)
[2020-02-29] MEDS ORDERED: DULOXETINE HCL 30 MG CAP PO SCH (21:00)
[2020-02-29] MEDS ORDERED: OXYBUTYNIN CHLORIDE XL 5 MG TABCR PO SCH (21:00)
[2020-02-29] MEDS ORDERED: DULOXETINE HCL 60 MG CAP PO SCH (21:00)
[2020-03-01] MEDS: ACETAMINOPHEN 325 MG TAB PO PRN ×2 (00:09→08:06)
[2020-03-01] MEDS ORDERED: MoRPHine SULFATE 2 MG/ML CARP IV STA ×2 (05:05→23:59)
[2020-03-01] MEDS: PREMARIN VAG CRM 14 APPLN/30 GM TUBE PV PRN ×2 (05:40→20:25)
[2020-03-01] MEDS: FUROSEMIDE 40 MG TAB PO SCH (08:00)
[2020-03-01] MEDS: GABAPENTIN 300 MG CAP PO SCH ×2 (08:00→20:19)
[2020-03-01] MEDS: CHOLECALCIFEROL 1,000 UNITS 25 MCG TAB PO SCH (08:00)
[2020-03-01] MEDS: FEXOFENADINE HCL 180 MG TAB PO SCH (08:01)
[2020-03-01] MEDS: DOXYCYCLINE HYCLATE 100 MG CAP PO SCH ×2 (08:01→20:20)
[2020-03-01] MEDS: FLUTICASONE/VILANTEROL 200/25MCG 14 PUFFS/INHALER INH SCH (08:01)
[2020-03-01] MEDS: POTASSIUM CHLORIDE 10 MEQ TABCR PO SCH ×2 (08:02→20:17)
[2020-03-01] MEDS: AMLODIPINE BESYLATE 5 MG TAB PO SCH (08:02)
[2020-03-01] MEDS: PANTOprazole 40 MG TAB PO SCH ×2 (08:02→20:21)
[2020-03-01] MEDS ORDERED: DULOXETINE HCL 30 MG CAP PO SCH (09:00)
[2020-03-01] MEDS ORDERED: NON-FORMULARY MEDICATION (Biotin 5,000 MCG) PO SCH (09:00)
[2020-03-01] MEDS ORDERED: MICONAZOLE NITRATE POWDER 43 GM EXT PRN (13:05)
[2020-03-01] MEDS ORDERED: GABAPENTIN 300 MG CAP PO SCH (14:00)
--- NOTE | 2020-03-01 17:11 | Hospitalist Progress Note ---
Date of Service March 01, 2020 Assessment & Plan (1) Intermittent confusion: 69 yo F PMHx HTN, HLD, lumbar spinal stenosis, COPD, fibromyalgia, asthma, DM2 admitted for intermittent confusion and found to have positive Lyme IgM. Intermittent confusion: - On admission with description of intermittent confusion, worsened with stress and especially over the last month of time. - During this time has had social stressors due to upcoming surgery, several deaths in the family. - Also during this time had increases in Cymbalta and gabapentin medications, both of which can have neurologic side effects. - Suspect element of polypharmacy for back pain, depression, restless legs may be contributing to confused status. - CT/CTA Head and neck without acute intracranial abnormalities. - AAO x3 in room this AM. - Have decreased Cymbalta dose to 30mg daily, gabapentin to 300mg BID. Holding oxybutynin. - Can consider MRI if symptoms worsen. - Will call caregiver for collateral information regarding behavior. Acute Lyme Disease: - With Lyme IgM positive. Western blot pending. - Continue doxycycline 100mg BID. Urinary Retention: - Straight cath as needed. HTN: - Continue furosemide, amlodipine. GERD: - Continue pantoprazole. Code Status: FULL CODE FEN/GI: DM2 diet DVT ppx: Heparin 5000u SQ q12 Dispo: Med/Surg (2) Acute Lyme disease: (3) Hyperlipidemia: (4) HTN (hypertension): (5) Chronic radicular lumbar pain: (6) Bilateral lower extremity edema: (7) COPD (chronic obstructive pulmonary disease): (8) GERD (gastroesophageal reflux disease): (9) Lumbar spinal stenosis: (10) Depressive disorder: (11) Diabetes mellitus: (12) Asthma: (13) Urinary Incontinence: Admission and Anticipated Discharge Date Admission Date: February 29, 2020 Supervising Physician Co-Signing Physician Notes Patient seen and examined with PGY-2 Dr. Springer. Agree with history, exam findings, assessment and plan of care as outlined. In brief, Ms. Manning is a 69 year old female with history significant for spinal stenosis, fibromyalgia, COPD, and diabetes admitted with intermittent confusion. Reviewed ED notes and history and physical performed by admitting hospitalist. Reports that this intermittent confusion has been noticed by her customer care assistant, Uma, for a while now. She is thinks that the confusion may be related to the recent increase in both her gabapentin and cymbalta, but she is not quite sure. On exam, no myoclonic jerks were appreciated. She is somewhat tangential at times, but re-directable. No focal neurologic deficits on exam. 1. intermittent confusion. Unclear cause. Infectious work up so far is unremarkable. Suspect that this is related to the increase in her gabapentin and cymbalta. We will decrease her cymbalta down to 30mg and gabapentin to 300mg BID. 2. Back pain, chronic, from spinal stenosis. continue with home meds as above. 3. acute lyme. recent diagnosis. continue doxy. 4. urinary retention. Stopped oxybutynin, as this may also contribute to confusion as can urinary retention. Currently has a goodwin, but we can remove this for voiding trials. Other chronic issues stable. Dipso: Clinically does not have any confusion at this time. If continues to do well, possible discharge tomorrow. Subjective Patient without acute events overnight. Today says that she feels "about the same". Over the last month has had more forgetfulness, sometimes will get "stuck on words". This has worsened over the last month, and was noted per patient by her caregiver and her Urologist on new patient visit. She states that over the last several months she has had several life stressors, with a family member in long term, several deaths in the family, and an upcoming surgery on her back for her back pain with Dr. Pressley. At this time denies chest pain, SOB, diarrhea or constipation. Has urinary incontinence issues at baseline. Reports some back pain and spasms. No fevers or chills. Review of Systems Review of Systems: All systems reviewed & are unremarkable except as noted in Subjective Physical Exam Constitutional: WD/WN, vitals as above ENMT: external ear and nose normal, oropharynx normal Neck: normal visual inspection Respiratory: normal respiratory effort, lungs clear to auscultation Cardiovascular: RRR, no murmur, no edema Gastrointestinal (Abdomen): Inspection/Auscultation: normal bowel sounds Skin: no rashes, warm and dry Psychiatric: A+Ox3, euthymic affect somewhat tangential but redirectable Results & Data Results & Data ([facility]) Vital Signs (Past 12 Hours) Vital Signs Temp Pulse Resp BP Pulse Ox 03/01/20 08:05 36.8 C 91 H 20 141/79 H 98 Resident Activity Tracking Resident Involvement: Resident Care Provided Care Provided: Adult Hospital Medicine (1) Lumbar spinal stenosis Neurogenic claudication status: unspecified Qualified Code(s): M48.061 - Spinal stenosis, lumbar region without neurogenic claudication
[2020-03-01] MEDS: BACLOFEN 10 MG TAB PO PRN (20:13)
[2020-03-01] MEDS: HEPARIN SOD 5,000 UNIT/0.5 ML VIAL SQ SCH (20:15)
[2020-03-01] MEDS: PRAMIPEXOLE DIHYDROCHLO 0.5 MG TAB PO SCH (20:18)
[2020-03-01] MEDS: MONTELUKAST SODIUM 10 MG TABLET PO SCH (20:21)
[2020-03-02] MEDS: PREMARIN VAG CRM 14 APPLN/30 GM TUBE PV PRN ×2 (08:07→18:18)
[2020-03-02] MEDS ORDERED: MoRPHine SULFATE 2 MG/ML CARP IV STA (08:44)
[2020-03-02] MEDS: PANTOprazole 40 MG TAB PO SCH ×2 (08:50→20:00)
[2020-03-02] MEDS: DOXYCYCLINE HYCLATE 100 MG CAP PO SCH ×2 (08:50→20:00)
[2020-03-02] MEDS: HEPARIN SOD 5,000 UNIT/0.5 ML VIAL SQ SCH ×2 (08:50→20:00)
[2020-03-02] MEDS: FUROSEMIDE 40 MG TAB PO SCH (08:51)
[2020-03-02] MEDS: AMLODIPINE BESYLATE 5 MG TAB PO SCH (08:51)
[2020-03-02] MEDS: DULOXETINE HCL 30 MG CAP PO SCH (08:51)
[2020-03-02] MEDS: GABAPENTIN 300 MG CAP PO SCH ×2 (08:51→20:00)
[2020-03-02] MEDS: FLUTICASONE/VILANTEROL 200/25MCG 14 PUFFS/INHALER INH SCH (08:52)
[2020-03-02] MEDS: POTASSIUM CHLORIDE 10 MEQ TABCR PO SCH ×2 (08:52→20:00)
[2020-03-02] MEDS: CHOLECALCIFEROL 1,000 UNITS 25 MCG TAB PO SCH (08:52)
[2020-03-02] MEDS: FEXOFENADINE HCL 180 MG TAB PO SCH (08:52)
[2020-03-02] MEDS: LIDOCAINE 5% 1 PATCH TD SCH (08:53)
--- NOTE | 2020-03-02 10:38 | Discharge Summary ---
Date of Service March 02, 2020 Admission HPI Per Admitting Provider 69 yo female is an odd historian. She reports that she is confused, and states that she gets confused intermittently throughout the day. This confusion lasts for a few minutes and is accompanied by myoclonic jerky movements of her arms. She then reports that she begins to whisper. She does not provide more history and her caregiver is not in the ER. While reviewing her Urology outpatient visit today, it appears she would zone out midsentence. Patient states this has kassy ongoing for the past 2-3 weeks. Discharge Data Allergies Allergy/AdvReac Type Severity Reaction Status Date / Time cetirizine Allergy Intermediate RASH Verified 02/29/20 12:56 metformin AdvReac Unknown GI upset Verified 02/29/20 12:56 Consultations 02/29/20 15:46 ED Decision to Admit Stat Ordered Studies 02/29/20 12:32 CT angio head w con Stat CT angio neck with con Stat 02/29/20 12:34 CT head/brain wo con Stat Hospital Course (1) Intermittent confusion: 69 yo F PMHx HTN, HLD, lumbar spinal stenosis, COPD, fibromyalgia, asthma, DM2 admitted for intermittent confusion and found to have positive Lyme IgM. Intermittent confusion: - On admission with description of intermittent confusion, worsened with stress and especially over the last month of time. - During this time has had social stressors due to upcoming surgery, several deaths in the family. - Also during this time had increases in Cymbalta and gabapentin medications, both of which can have neurologic side effects. - Suspect element of polypharmacy for back pain, depression, restless legs may be contributing to confused status. - CT/CTA Head and neck without acute intracranial abnormalities. - AAO x3 in room this AM. - Have decreased Cymbalta dose to 30mg daily, gabapentin to 300mg BID. Holding oxybutynin. - Can consider MRI if symptoms worsen. - Will call caregiver for collateral information regarding behavior. Acute Lyme Disease: - With Lyme IgM positive. Western blot pending. - Continue doxycycline 100mg BID. Urinary Retention: - Straight cath as needed. HTN: - Continue furosemide, amlodipine. GERD: - Continue pantoprazole. Code Status: FULL CODE FEN/GI: DM2 diet DVT ppx: Heparin 5000u SQ q12 Dispo: Med/Surg Discharge Plan Discharge Items Patient Disposition: Home - Self-Care Reason For Visit: CONFUSION AND ALTERED MENTAL STATUS Discharge Diagnosis: intermittent confusion lumbar spinal stenosis Activity: Per Instructions section Non-emergency contact: Primary Care Provider Call non-emergency contact if: you have any medication questions, your symptoms worsen and your temperature is above 101 Follow-up/Referrals: Chava Ronquillo MD [Primary Care Provider] - Diet: Regular Addtl Attending Provider Instructions: You were admitted to the hospital for change in mental status. You had a CT scan of your head and neck, which did not show any tumors, strokes, or bleeds. You had labwork which did not show any signs of infection or electrolyte abnormalities. It is possible that your symptoms are due to the medications that you take for your chronic conditions. Several of the medications that you take affect the way the brain processes information, especially when taken together. We decreased your gabapentin dose to 300 milligrams every twelve hours, and decreased your Cymbalta to 30 milligrams once daily. We would suggest you continue this in the outpatient setting. We sent some lidocaine patches in for your back. You can apply one of these to your sore lower back once daily. We also sent Premarin cream for vaginal dryness. You can apply this to the affected area once daily on Mondays and . Your new prescriptions have been sent to [facility]. Pending Studies at Discharge: No Stand-Alone Forms: My [facility], Smoking Cessation Medications and DC Order Prescriptions: New lidocaine 5 % Adhesive Patch,Medicated 1 patch transdermal QAM Qty: 30 RF: 0 gabapentin 300 mg Capsule 300 mg PO HS Qty: 30 RF: 0 duloxetine 30 mg Capsule,Delayed Release(Dr/Ec) 30 mg PO QAM Qty: 30 RF: 0 Premarin 0.625 mg/gram cream See Rx Instructions .ROUTE .COMPLEX Qty: 30 RF: 0 Continued meloxicam 7.5 mg tablet 7.5 mg PO BID Qty: 60 RF: 5 (DME) compr.stocking,knee,long,large Misc See Rx Instructions .ROUTE .MEDSUPPLY Qty: 12 RF: 0 (DME) Manual Wheelchair Device See Rx Instructions .ROUTE .MEDSUPPLY Qty: 1 RF: 0 tramadol 50 mg tablet 100 mg PO Q6H PRN (Reason: pain) Qty: 90 RF: 0 gabapentin 300 mg capsule 300 mg PO .COMPLEX Qty: 180 RF: 2 pantoprazole 40 mg tablet,delayed release (DR/EC) 40 mg PO BID Qty: 180 RF: 3 (DME) Accu-Chek Kirstin Plus test strp strip See Dose Instructions .ROUTE .MEDSUPPLY Qty: 200 RF: 3 albuterol sulfate 2.5 mg /3 mL (0.083 %) solution for nebulization 2.5 mg INH QID PRN (Reason: shortness of breath or wheezing) Qty: 90 RF: 3 (DME) pen needle, diabetic [Comfort EZ Pen [place]] 31 gauge x 3/16" needle See Dose Instructions .ROUTE .MEDSUPPLY Qty: 100 RF: 0 (DME) lancets [Lancets,Thin] misc See Dose Instructions .ROUTE .MEDSUPPLY Qty: 200 RF: 3 cholecalciferol (vitamin D3) 1,000 unit capsule 3,000 units PO QAM RF: 0 amlodipine [Norvasc] 10 mg tablet 10 mg PO QAM Qty: 90 RF: 1 glimepiride [Amaryl] 1 mg tablet 1 mg PO QAM Qty: 90 RF: 3 albuterol sulfate 90 mcg/actuation HFA aerosol inhaler 2 puffs INH Q6H PRN (Reason: shortness of breath or wheezing) Qty: 18 RF: 3 fluticasone propion-salmeterol [Advair Diskus] 500-50 mcg/dose blister with device 1 puffs inhalation BID Qty: 60 RF: 3 baclofen 10 mg tablet 10 mg PO BID PRN (Reason: back pain) Qty: 60 RF: 5 potassium chloride 10 mEq capsule, extended release 10 meq PO BID Qty: 30 RF: 2 acetaminophen [Tylenol] 325 mg Tablet 325 mg PO QID PRN (Reason: Pain) RF: 0 pramipexole [Mirapex] 0.5 mg tablet 0.5 mg PO HS RF: 0 montelukast [Singulair] 10 mg tablet 10 mg PO HS RF: 0 doxycycline hyclate 100 mg tablet 100 mg PO BID 21 Days Qty: 42 RF: 0 biotin 5,000 mcg Tablet,Disintegrating 5,000 mcg PO QAM RF: 0 fexofenadine 180 mg tablet 180 mg PO QAM RF: 0 fluticasone propionate 50 mcg/actuation spray,suspension 2 sprays INTNAS DAILY PRN (Reason: NASALL CONGESTION) RF: 0 furosemide [Lasix] 40 mg tablet 40 mg PO QAM RF: 0 oxybutynin chloride 10 mg tablet extended release 24hr 40 mg PO HS RF: 0 Discontinued duloxetine [Cymbalta] 60 mg capsule,delayed release(DR/EC) 60 mg PO HS Qty: 90 RF: 3 duloxetine [Cymbalta] 30 mg capsule,delayed release(DR/EC) 30 mg PO BID RF: 0 Admission Data Admit Date/Time: 02/29/20 17:29 Attending Provider: Susana Garza Admit Provider: Carlos Buckner Primary Care Provider: Chava Ronquillo Other Providers: Carlos Buckner
--- NOTE | 2020-03-02 14:23 | Hospitalist Progress Note ---
Date of Service March 02, 2020 Assessment & Plan (1) Intermittent confusion: 69 yo F PMHx HTN, HLD, lumbar spinal stenosis, COPD, fibromyalgia, asthma, DM2 admitted for intermittent confusion and found to have positive Lyme IgM. Back pain and urinary retention: - Patient with urinary retention to 1L on arrival to ED, straight cathed at that time and goodwin placed. - Initially suspected to be due to several medications with ADR of urinary retention (baclofen, oxybutynin) however due to patient's "worst back pain ever", will get STAT MRI lumbar spine. - Dilaudid 1mg IV q6h PRN moderate pain. Lidocaine patches PRN. - No sensory deficits of lower extremities suggestive of cauda equina. No bowel incontinence. Intermittent confusion: - On admission with description of intermittent confusion, worsened with stress and especially over the last month of time. - During this time has had social stressors due to upcoming surgery, several deaths in the family. - Also during this time had increases in Cymbalta and gabapentin medications, both of which can have neurologic side effects. - Suspect element of polypharmacy for back pain, depression, restless legs may be contributing to confused status. - CT/CTA Head and neck without acute intracranial abnormalities. - AAO x3 in room this AM. - Have decreased Cymbalta dose to 30mg daily, gabapentin to 300mg BID. Holding oxybutynin. - Can consider MRI if confusion symptoms worsen. - Unable to contact caregiver for collateral information regarding behavior. Acute Lyme Disease: - With Lyme IgM positive. Western blot pending. - Continue doxycycline 100mg BID. Urinary Retention: - Goodwin placed given continued urinary retention. HTN: - Continue furosemide, amlodipine. GERD: - Continue pantoprazole. Code Status: FULL CODE FEN/GI: DM2 diet DVT ppx: Heparin 5000u SQ q12 Dispo: Med/Surg (2) Acute urinary retention: Admission and Anticipated Discharge Date Admission Date: February 29, 2020 Supervising Physician Co-Signing Physician Notes Patient seen and examined with PGY-2 Dr. Springer. Agree with history, exam findings, assessment and plan of care as outlined. In brief, Ms. Manning is a 69 year old female with history significant for spinal stenosis, fibromyalgia, COPD, and diabetes admitted with intermittent confusion. Reviewed ED notes and history and physical performed by admitting hospitalist. Overnight, she had significant back pain. She received morphine over night and lidocaine patches were started. However, she continued to endorse significant back pain. Denies weakness and paresthesias in the legs. Her goodwin was removed but she was not able to urinate and was noted to be retaining urine. Did not have any overflow incontinence. Of note, on admission she was noted to be retaining 1L of urine without urge to urinate. On exam, no myoclonic jerks were appreciated. She is somewhat tangential at times, but re-directable. Light touch in tact bilateral lower extremities. 1. intermittent confusion. Seems to be better today. Suspect that this is related to the increase in her gabapentin and cymbalta. We will decrease her cymbalta down to 30mg and gabapentin to 300mg BID. 2. Back pain, chronic, from spinal stenosis. continue with home meds as above, added [place] and morphine. No improvement in her pain. She did receive 1mg dilaudid in order to have stat lumbar MRI to evaluate for cauda equina given her significant back pain and urinary retention. 3. acute lyme. recent diagnosis. continue doxy. 4. urinary retention. Stopped oxybutynin, as this may also contribute to confusion as can urinary retention. See above for lumbar MRI. Other chronic issues stable. Dipso: Clinically does not have any confusion at this time. Pending MRI. Subjective Patient with several episodes of breakthrough pain overnight, first receiving lidocaine patch then morphine 1mg x1 with improvement. Still with urinary retent ion per nursing despite holding oxybutynin. Today on interview is lying in bed on her side, states her pain is well controlled. No chest pain, SOB, fevers or chills, loss of sensation, incontinence, nausea or vomiting. headaches or dizziness. Review of Systems Review of Systems: All systems reviewed & are unremarkable except as noted in Subjective Physical Exam Constitutional: WD/WN, vitals as above ENMT: external ear and nose normal, oropharynx normal Neck: normal visual inspection Respiratory: normal respiratory effort, lungs clear to auscultation Cardiovascular: RRR, no murmur, no edema Gastrointestinal (Abdomen): Inspection/Auscultation: normal bowel sounds Skin: no rashes, warm and dry Neurologic: sensation intact bilateral LE Achilles tendon reflex present Psychiatric: A+Ox3, euthymic affect somewhat tangential but redirectable Results & Data Results & Data ([facility]) Vital Signs (Past 12 Hours) Vital Signs Temp Pulse Resp BP Pulse Ox 03/02/20 13:46 36.5 C 78 18 141/58 H 92 03/02/20 06:40 36.5 C 78 18 141/58 H 92 Resident Activity Tracking Resident Involvement: Resident Care Provided Care Provided: Adult Hospital Medicine
[2020-03-02] MEDS ORDERED: HYDROCODONE/ACETAMOPHEN 5/325MG TAB PO PRN (15:23)
[2020-03-02] MEDS ORDERED: HYDROmorphone INJ 1 MG/ML SYRINGE IV STA (16:41)
--- NOTE | 2020-03-02 19:26 | Magnetic Resonance Report ---
LUMBAR SPINE MRI HISTORY: Back pain, herniated disc, urinary retention TECHNIQUE: Multiplanar multisequence MRI of the lumbar spine was performed without the use of contras t. COMPARISON: Lumbar spine MRI 06/08/2016. FINDINGS: For the purpose of the report the L5-S1 disc space will be located on axial image 44 of 46. There is 3 mm of anterolisthesis of L3 on L4. Moderate disc space narrowing at L3-L4. This has progre ssed. Severe disc space narrowing at L4-L5 and L5-S1 is again noted. The conus terminates at the L1-L 2 disc space level. No fractures within the lumbar spine. Endplate edema at L3-L4 and is likely due t o the degenerative change. Moderate facet degenerative changes at L2-L3, L3-L4, and L4-L5. This is al so progressed. Motion artifact. L1-L2: No significant central canal or neural foraminal narrowing. L2-L3: Small broad-based posterior disc bulge. In conjunction with the severe ligamentum and facet hy pertrophy there is severe central canal narrowing with mild bilateral neural foraminal narrowing. Thi s has progressed in the interval. L3-L4: Broad-based posterior disc bulge with severe ligamentum and facet hypertrophy. This results in severe central canal narrowing. There is no appreciable thecal sac as the disc bulge appears to abut the facets. Therefore, this would be consistent with compression of the cauda equina. This is also p rogressed in the interval. There is also severe bilateral neural foraminal narrowing. L4-L5: Broad-based posterior disc bulge with ligamentum and facet hypertrophy resulting in moderate c entral canal and mild bilateral neural foraminal narrowing. This is also progressed in the interval. L5-S1: No significant central canal or neural foraminal narrowing. IMPRESSION: 1. Progressive degenerative disc disease as described above. This is most pronounced at the L2-L3 and L3-L4 levels which demonstrates severe central canal narrowing. There is no appreciable thecal sac a t the L3-L4 level which is therefore consistent with compression of the cauda equina. 2. Surgical consultation recommended for possible decompression of the lumbar spine. 3. No acute fracture or subluxation. 4. Endplate edema at L3-L4 is nonspecific but favors the long-standing degenerative change. 5. These findings were called/faxed to the referring physician following dictation. ACT 112: Negative or not required by law. Electronically signed by: Bean Landon M.D. 03/02/2020 7:25 PM
[2020-03-02] MEDS: MONTELUKAST SODIUM 10 MG TABLET PO SCH (20:00)
[2020-03-02] MEDS: PRAMIPEXOLE DIHYDROCHLO 0.5 MG TAB PO SCH (20:00)
[2020-03-03 06:41] LABS: Basophils # (auto) 0.02 K/uL (0-0.2); Basophils % (auto) 0.3 %; Eosinophils # (auto) 0.08 K/uL (0-0.5); Hematocrit (blood only) 42.3 % (37-47); Immature Granulocytes # (auto) 0.01 K/uL (0.00-0.02); Immature Granulocytes % (auto) 0.1 %; Lymphocytes # (auto) 2.19 K/uL (1.2-3.4); Lymphocytes % (auto) 28.3 %; Mean Corpuscular Hgb Conc 33.1 g/dL (32-36); Mean Corpuscular Volume 96.6 fL (80-100); Mean Platelet Volume 9.4 fL (7.4-10.4); Monocytes # (auto) 0.87 K/uL (0.11-0.59); Monocytes % (auto) 11.2 %; Neutrophils # (auto) 4.57 K/uL (1.4-6.5); Neutrophils % (auto) 59.1 %; Platelet Count 199 K/uL (130-400); RDW Coefficient of Variation 13.3 % (11.5-14.5); RDW Standard Deviation 47.2 fL (36.4-46.3); Red Blood Count 4.38 M/uL (4.2-5.4); White Blood Count 7.74 K/uL (4.8-10.8)
[2020-03-03] MEDS: HYDROmorphone INJ 1 MG/ML SYRINGE IV PRN ×2 (07:02→14:11)
[2020-03-03 07:13] LABS: Blood Urea Nitrogen 17 mg/dl (7-18); Calcium 9.2 mg/dl (8.5-10.1); Carbon Dioxide 32 mmol/L (21-32); Chloride 101 mmol/L (98-107); Est GFR (African American) 104.4; Est GFR (Non-African American) 90.1; Glucose 136 mg/dl (70-99); Sodium 137 mmol/L (136-145)
[2020-03-03] MEDS: CHOLECALCIFEROL 1,000 UNITS 25 MCG TAB PO SCH (08:21)
[2020-03-03] MEDS: AMLODIPINE BESYLATE 5 MG TAB PO SCH (08:21)
[2020-03-03] MEDS: DOXYCYCLINE HYCLATE 100 MG CAP PO SCH ×2 (08:21→20:06)
[2020-03-03] MEDS: GABAPENTIN 300 MG CAP PO SCH ×2 (08:22→20:07)
[2020-03-03] MEDS: FEXOFENADINE HCL 180 MG TAB PO SCH (08:22)
[2020-03-03] MEDS: PANTOprazole 40 MG TAB PO SCH ×2 (08:22→20:06)
[2020-03-03] MEDS: POTASSIUM CHLORIDE 10 MEQ TABCR PO SCH ×2 (08:22→20:06)
[2020-03-03] MEDS: FUROSEMIDE 40 MG TAB PO SCH (08:22)
[2020-03-03] MEDS: DULOXETINE HCL 30 MG CAP PO SCH (08:22)
[2020-03-03] MEDS: HEPARIN SOD 5,000 UNIT/0.5 ML VIAL SQ SCH ×2 (08:23→20:10)
[2020-03-03] MEDS: FLUTICASONE/VILANTEROL 200/25MCG 14 PUFFS/INHALER INH SCH (08:23)
[2020-03-03] MEDS: BACLOFEN 10 MG TAB PO PRN (10:13)
[2020-03-03] MEDS: LIDOCAINE 5% 1 PATCH TD SCH (12:39)
--- NOTE | 2020-03-03 14:31 | Orthopedic Consultation ---
Date of Consultation March 03, 2020 Assessment & Plan (1) Lumbar spinal stenosis: At this time if I the opportunity to review her updated MRI. From a surgical standpoint she would require at minimum a lumbar decompression fusion involving L2-3 and L3-4. She is however a considerable surgical risk in light of her multiple medical issues and morbid obesity and psychologic presentation. I would suggest she consider optimizing herself physically prior to any surgical procedure versus consultation with a tertiary care center. Present on Admission?: Yes History of Present Illness Reason for Consultation: Patient is complains of back and bilateral leg pain. Attending Physician: Jeramy Rivera DO History of Present Illness This is a 69-year-old female who presents with back and bilateral leg pain. The symptoms have been present for several years but appear to be progressive. She describes symptoms involving the bilateral extremities anterior and posterior thighs extending below the knee markedly exacerbated with standing and walking. She has had a decline in ability to ambulate. She denies any perineal numbness. She denies any radicular complaints while in bed. Allergies Allergy/AdvReac Type Severity Reaction Status Date / Time cetirizine Allergy Intermediate RASH Verified 02/29/20 12:56 metformin AdvReac Unknown GI upset Verified 02/29/20 12:56 Home Medications Home Medications Medication Instructions Recorded Confirmed Type albuterol sulfate 2.5 mg INH QID PRN #90 ml 01/22/19 02/29/20 Rx blood sugar diagnostic #200 ea 01/22/19 02/29/20 Rx lancets #200 ea 01/22/19 02/29/20 Rx pen needle, diabetic 31 gauge x #100 ea 01/22/19 02/29/20 Rx 3/16" cholecalciferol (vitamin D3) 25 3,000 units PO QAM cap 01/26/19 02/29/20 History mcg (1,000 unit) capsule duloxetine 60 mg capsule,delayed 60 mg PO HS #90 cap 02/28/19 02/29/20 Rx release biotin 5,000 mcg PO QAM 04/18/19 02/29/20 History fexofenadine 180 mg PO QAM 04/18/19 02/29/20 History fluticasone propionate 2 sprays INTNAS DAILY PRN 04/18/19 02/29/20 History meloxicam 7.5 mg tablet 7.5 mg PO BID #60 tab 05/02/19 02/29/20 Rx albuterol sulfate 90 mcg/actuation 2 puffs INH Q6H PRN #18 gm 01/03/20 02/29/20 Rx aerosol inhaler amlodipine 10 mg tablet 10 mg PO QAM #90 tab 01/03/20 02/29/20 Rx fluticasone 500 mcg-salmeterol 50 1 puffs INHALATION BID #60 ea 01/03/20 02/29/20 Rx mcg/dose blistr powdr for inhalation glimepiride 1 mg tablet 1 mg PO QAM #90 tab 01/03/20 02/29/20 Rx Wheelchair (Manual or Powered) #1 ea 01/21/20 02/29/20 Rx compr.stocking,knee,long,large #12 ea 01/21/20 02/29/20 Rx baclofen 10 mg tablet 10 mg PO BID PRN #60 tab 01/22/20 02/29/20 Rx potassium chloride 10 mEq 10 meq PO BID #30 cap 02/04/20 02/29/20 Rx capsule,extended release duloxetine [Cymbalta] 30 mg PO BID 02/15/20 02/29/20 History furosemide [Lasix] 40 mg PO QAM 02/15/20 02/29/20 History oxybutynin chloride 40 mg PO HS 02/15/20 02/29/20 History tramadol 50 mg tablet 100 mg PO Q6H PRN #90 tab 02/19/20 02/29/20 Rx gabapentin 300 mg capsule 300 mg PO .COMPLEX #180 cap 02/25/20 02/29/20 Rx pantoprazole 40 mg tablet,delayed 40 mg PO BID #180 tab 02/25/20 02/29/20 Rx release acetaminophen [Tylenol] 325 mg PO QID PRN 02/28/20 02/29/20 History doxycycline hyclate 100 mg PO BID 21 Days #42 tab 02/28/20 02/29/20 Rx montelukast [Singulair] 10 mg PO HS 02/28/20 02/29/20 History pramipexole [Mirapex] 0.5 mg PO HS 02/28/20 02/29/20 History conjugated estrogens [Premarin] See Rx Instructions .ROUTE 03/02/20 Rx .COMPLEX #30 gm duloxetine 30 mg PO QAM #30 cap 03/02/20 Rx gabapentin 300 mg PO HS #30 cap 03/02/20 Rx lidocaine 1 patch TRANSDERMAL QAM #30 ea 03/02/20 Rx Patient History Medical History Anxiety Asthma stable COPD (chronic obstructive pulmonary disease) Stable and controlled Depressive disorder Diabetes mellitus NIDDM- stable and controlled per patient Fibromyalgia Constant pain Gastroparesis GERD (gastroesophageal reflux disease) controlled History of ear infection hx recurrent ear infections s/p drainage tube in left ear - no recent issues History of urinary incontinence chronic History of urinary urgency chronic Hyperlipidemia Hypertension Lumbar spinal stenosis Severe at L3-4 Mixed conductive and sensorineural hearing loss Morbid obesity On home oxygen therapy 3LPM at HS Restless leg syndrome Sleep apnea CPAP Surgical History H/O: hysterectomy History of cholecystectomy History of esophagogastroduodenoscopy (EGD) History of left knee replacement History of left shoulder replacement History of repair of right rotator cuff History of right knee joint replacement History of surgery on upper extremity LET ARM ABSCESS History of tonsillectomy History of tooth extraction all teeth Hx of colonoscopy Family History Brother Family history of diabetes mellitus Sister Family history of diabetes mellitus Mother Family history of diabetes mellitus Stroke Aunt Family history of diabetes mellitus Father Myocardial infarction Denies family history of Ovarian cancer Prostate cancer Breast cancer Colorectal cancer Social History Smoking Status: Never smoker Second Hand Exposure: Yes; Hx Alcohol Use: No Hx Substance Use: No Preferred Language: [place] Citizen Communication Ability: 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 I had to awaken her to further her exam. She exhibits reasonable plantar flexion dorsiflexion is able to flex her legs bilaterally off of the bed. Sensory appears to be symmetric intact. She is morbidly obese. Results & Data ([facility]) Vital Signs (Past 12 Hours) Vital Signs Temp Pulse Resp BP Pulse Ox 03/03/20 06:42 37.0 C 81 20 161/88 H 97 (1) Lumbar spinal stenosis Neurogenic claudication status: unspecified Qualified Code(s): M48.061 - S wil stenosis, lumbar region without neurogenic claudication
--- NOTE | 2020-03-03 18:23 | Hospitalist Progress Note ---
Date of Service March 03, 2020 Assessment & Plan (1) Intermittent confusion: 69 yo F PMHx HTN, HLD, lumbar spinal stenosis, COPD, fibromyalgia, asthma, DM2 admitted for intermittent confusion and found to have positive Lyme IgM. Back pain and urinary retention: - Patient with urinary retention to 1L on arrival to ED, straight cathed at that time and goodwin placed. - Initially suspected to be due to several medications with ADR of urinary retention (baclofen, oxybutynin) however due to patient's "worst back pain ever", - Lumbar MRI: progressive disc disease L2-L3 and L3-L4 w/ central canal stenosis concerning for cauda equina - Orthopedic surgery consulted, no indication for surgical intervention at this time - Dilaudid 1mg IV q6h PRN moderate pain. Lidocaine patches PRN. - No sensory deficits of lower extremities suggestive of cauda equina. No bowel incontinence. Intermittent confusion: - On admission with description of intermittent confusion, worsened with stress and especially over the last month of time. - During this time has had social stressors due to upcoming surgery, several deaths in the family. - Also during this time had increases in Cymbalta and gabapentin medications, both of which can have neurologic side effects. - Suspect element of polypharmacy for back pain, depression, restless legs may be contributing to confused status. - CT/CTA Head and neck without acute intracranial abnormalities. - AAO x3 initially - Have decreased Cymbalta dose to 30mg daily, gabapentin to 300mg BID. Holding oxybutynin. - Can consider MRI if confusion symptoms worsen. Acute Lyme Disease: - With Lyme IgM positive. Western blot pending. - Continue doxycycline 100mg BID. Urinary Retention: - Goodwin placed given continued urinary retention. HTN: - Continue furosemide, amlodipine. GERD: - Continue pantoprazole. Code Status: FULL CODE FEN/GI: DM2 diet DVT ppx: Heparin 5000u SQ q12 Dispo: Med/Surg (2) Acute urinary retention: Admission and Anticipated Discharge Date Admission Date: February 29, 2020 Supervising Physician Co-Signing Physician Notes I personally examined the patient and verified all segura points of history and exam, discussed case, and agree with decision making with Dr Perez. drowsy when i see her, very limited HPI and ROS. case d/w ortho - input appreciated. vitals noted nad heent nc at mmm breathing unlabored. very drowsy - awakens to loud voice, gives short answers, falls asleep again. no pallor or icterus. exam otherwise as above spinal stenosis - would be concerning operative candidate, but at the same time does have significant concerning findings on MRI - would continue conservative care and follow very closely - since sx evolved over weeks, and are not rapidly worsening, would not view as crisis urgency; at the same time, with any worsening or failure to improve, then may need to consider transfer to tertiary. continue pain control, PT/OT inpt. possibly would benefit from decompression and/or injections as outpt if she shows enough improvement/stability to have that as an option. probable toxic encephalopathy realted to gabapentin and cymbalta - and/or other polypharmacy - will have to follow closely, wean as possible, but work on other measures for pain control as well. possible lyme - endemic area, IgM positive - on doxy for now pending western blot. DVT proph - heparin SQ otherwise as above Subjective Antonieta Manning was somewhat sleepy this morning. I asked her about concerning symptoms of spinal compression and she remarked that she had numbness for the last 3 weeks, and weakness in her lower extremity for the last 1.5-3 weeks. I was not able to get more out of the patient after this as she was not responsive. Nursing brought up that she had just received Dilaudid. Review of Systems Review of Systems: Unobtainable due to reduced consciousness Physical Exam Constitutional: + morbidly obese; no acute distress - sleepy ENMT: external ear and nose normal, oropharynx normal Neck: normal visual inspection Respiratory: normal respiratory effort, lungs clear to auscultation Cardiovascular: RRR, no murmur, no edema Gastrointestinal (Abdomen): - normal bowel sounds - nTTP Neurologic: - Babinski sign not present bilaterally Results & Data Results & Data ([facility]) Vital Signs (Past 12 Hours) Vital Signs Temp Pulse Resp BP Pulse Ox 03/03/20 14:48 37.2 C 69 16 126/75 97 03/03/20 06:42 37.0 C 81 20 161/88 H 97 CBC Results Results Complete Blood Count Results: RBC 4.38 M/uL (4.2-5.4) 03/03/20 WBC 7.74 K/uL (4.8-10.8) 03/03/20 Hgb 14.0 g/dL (12.0-16.0) 03/03/20 Hct 42.3 % (37-47) 03/03/20 Plt Count 199 K/uL (130-400) 03/03/20 Chemistry ([facility]) Results [facility] Results: Sodium 137 mmol/L (136-145) 03/03/20 Potassium 4.0 mmol/L (3.5-5.1) 03/03/20 Chloride 101 mmol/L (98-107) 03/03/20 BUN 17 mg/dl (7-18) 03/03/20 Creatinine 0.69 mg/dl (0.6-1.2) 03/03/20 Glucose 136 mg/dl (70-99) H 03/03/20 Resident Activity Tracking Resident Involvement: Resident Care Provided Care Provided: Adult [facility] Medicine
[2020-03-03] MEDS ORDERED: BACLOFEN 10 MG TAB PO PRN (19:41)
--- NOTE | 2020-03-03 19:42 | Billing Data ---
Date of Service March 03, 2020 Coding Level of Care Code 35228 Subseq Hosp Care Lvl 3
[2020-03-03] MEDS: MONTELUKAST SODIUM 10 MG TABLET PO SCH (20:06)
[2020-03-03] MEDS: PRAMIPEXOLE DIHYDROCHLO 0.5 MG TAB PO SCH (20:07)
[2020-03-03] MEDS: HYDROmorphone INJ 0.5 MG/0.5 ML SYR IV PRN (20:14)
[2020-03-04] MEDS: ACETAMINOPHEN 325 MG TAB PO PRN ×2 (02:15→09:57)
[2020-03-04] MEDS: HYDROmorphone INJ 0.5 MG/0.5 ML SYR IV PRN ×2 (06:48→15:06)
[2020-03-04 06:57] LABS: Basophils # (auto) 0.02 K/uL (0-0.2); Basophils % (auto) 0.1 %; Eosinophils # (auto) 0.16 K/uL (0-0.5); Eosinophils % (auto) 1.2 %; Hematocrit (blood only) 45.6 % (37-47); Hemoglobin 14.9 g/dL (12.0-16.0); Immature Granulocytes # (auto) 0.04 K/uL (0.00-0.02); Immature Granulocytes % (auto) 0.3 %; Lymphocytes # (auto) 2.16 K/uL (1.2-3.4); Lymphocytes % (auto) 15.9 %; Mean Corpuscular Hemoglobin 31.7 pg (25-34); Mean Corpuscular Hgb Conc 32.7 g/dL (32-36); Mean Platelet Volume 9.8 fL (7.4-10.4); Monocytes # (auto) 1.35 K/uL (0.11-0.59); Neutrophils # (auto) 9.83 K/uL (1.4-6.5); Neutrophils % (auto) 72.5 %; Platelet Count 228 K/uL (130-400); RDW Coefficient of Variation 13.1 % (11.5-14.5); RDW Standard Deviation 46.3 fL (36.4-46.3); White Blood Count 13.56 K/uL (4.8-10.8)
[2020-03-04 07:29] LABS: BUN Creatinine Ratio 27.9 (10-20); Calcium 9.3 mg/dl (8.5-10.1); Creatinine Clr Calc Pharmacy 110.7 ml/min; Est GFR (African American) 105.9; Est GFR (Non-African American) 91.4; Potassium 3.8 mmol/L (3.5-5.1)
[2020-03-04] MEDS: HEPARIN SOD 5,000 UNIT/0.5 ML VIAL SQ SCH (08:38)
[2020-03-04] MEDS: CHOLECALCIFEROL 1,000 UNITS 25 MCG TAB PO SCH (08:39)
[2020-03-04] MEDS: PANTOprazole 40 MG TAB PO SCH (08:39)
[2020-03-04] MEDS: DOXYCYCLINE HYCLATE 100 MG CAP PO SCH (08:39)
[2020-03-04] MEDS: AMLODIPINE BESYLATE 5 MG TAB PO SCH (08:39)
[2020-03-04] MEDS: FLUTICASONE/VILANTEROL 200/25MCG 14 PUFFS/INHALER INH SCH (08:39)
[2020-03-04] MEDS: POTASSIUM CHLORIDE 10 MEQ TABCR PO SCH (08:40)
[2020-03-04] MEDS: DULOXETINE HCL 30 MG CAP PO SCH (08:40)
[2020-03-04] MEDS: FEXOFENADINE HCL 180 MG TAB PO SCH (08:40)
[2020-03-04] MEDS: LIDOCAINE 5% 1 PATCH TD SCH (08:40)
[2020-03-04] MEDS: FUROSEMIDE 40 MG TAB PO SCH (08:40)
[2020-03-04] MEDS: DEXAMETHASONE SOD PHOSPHATE 10 MG in SYRINGE 0 ML IV ONE ×2 (11:04→11:13)
--- NOTE | 2020-03-04 11:22 | Discharge Summary ---
Date of Service March 04, 2020 Admission HPI Per Admitting Provider 69 yo female is an odd historian. She reports that she is confused, and states that she gets confused intermittently throughout the day. This confusion lasts for a few minutes and is accompanied by myoclonic jerky movements of her arms. She then reports that she begins to whisper. She does not provide more history and her caregiver is not in the ER. While reviewing her Urology outpatient visit today, it appears she would zone out midsentence. Patient states this has kassy ongoing for the past 2-3 weeks. Admission Exam Per Admitting Provider Constitutional: WD/WN, vitals as above (would suddenly have myoclonic movements when touched.) + morbidly obese; no acute distress Eyes: PERRL, conjunctivae normal, anicteric sclerae ENMT: external ear and nose normal, oropharynx normal Neck: trachea midline, no thyromegaly Respiratory: normal respiratory effort, lungs clear to auscultation Cardiovascular: RRR, no murmur, no edema Gastrointestinal (Abdomen): normal bowel sounds, soft, nontender, no hepatosplenomegaly Musculoskeletal: Head/Neck/Chest: normocephalic Neurologic: PERRL, EOMI, accommodation nl, no face palsy, no dysarthria Psychiatric: Orientation: alert, oriented to person and oriented to place; + not oriented to time Principal Diagnosis Cauda Equina Discharge Exam General: A&Ox3. Appears in pain. Cooperative. Morbidly obese. HEENT: Atraumatic, normocephalic. See neuro below. Pulm: Moderate air movement, CTAB A&P. -wheezes, -rales, -rhonchi. Symmetrical chest rise. No increase work of breathing. No respiratory distress. Cardiac: RRR, -mrg. Radial pulses intact and symmetrical. Abdominal: Nontender, nondistended, soft. BS present. CN II: Visual munoz are full to confrontation. Pupils are equal and react to light and accomidation. Visual acuity grossly intact. CN III, IV, : At primary gaze, there is no eye deviation. EoM intact without nystagmus. No visual field cuts. CN VII: No facial asymmetry CN VII: Hearing is grossly intact. CN IX, X: Phonation is normal without dysarthria. CN XI: Head turning intact Sensory: Sensation to soft touch absent in left hallux and left lateral foot. Sensation to pinprick intact in left foot and hallux. Sensation to soft touch intact in right foot and ankle without deficit. Hyperesthesia to pressure in left distal leg from the knee to ankle. Strength: RUE: elbow flexion/extension, finger flexion/extension, roll operator strength, interosseous 5/5 LUE: elbow flexion/extension, finger flexion/extension, roll operator strength, interosseous 5/5 RLE: Hip flexion, knee flexion/extension, ankle plantar flexion/dorsiflexion 5/5 LLE: Hip flexion 5/5. knee flexion/extension 4/5 pain limited, ankle dorsiflexion 1/5, hallux dorsiflexion/plantar flexion 1/5, ankle plantar flexion 2/5. Discharge Data Allergies Allergy/AdvReac Type Severity Reaction Status Date / Time cetirizine Allergy Intermediate RASH Verified 02/29/20 12:56 metformin AdvReac Unknown GI upset Verified 02/29/20 12:56 Consultations 02/29/20 15:46 ED Decision to Admit Stat 03/03/20 06:34 Consult Orthopedic Surgery Stat Ordered Studies 02/29/20 12:32 CT angio head w con Stat CT angio neck with con Stat 02/29/20 12:34 CT head/brain wo con Stat 03/02/20 14:21 MR lumbar spine wo con Stat Hospital Course (1) Intermittent confusion: 69 yo F PMHx HTN, HLD, lumbar spinal stenosis, COPD, fibromyalgia, asthma, DM2 admitted for intermittent confusion and found to have positive Lyme IgM. During admission she had the development of urinary retention, and motor and sensory deficits of the lower extremities and was found to have evidence of cauda equina syndrome on MRI. Back pain with urinary retention and weakness 2/2 cauda equina syndrome Patient has a history of many years of chronic back pain on gabapentin, baclofen, and Cymbalta. Her back pain had been progressively worsening over approximately 1 week, and sharply increased during her admission. She had associated development of urinary retention requiring catheterization. On admission she initially did not have any sensory deficits or motor weakness. Due to her worsening pain and urinary retention an MRI was obtained which showed Progressive degenerative disc disease, L2-L3 and L3-L4 levels which demonstrates severe central canal narrowing, no appreciable thecal sac at the L3-L4 level which is therefore consistent with compression of the cauda equina, No acute fracture or subluxation, and Endplate edema at L3-L4 nonspecific but favoring long-standing degenerative change. Orthopedic surgery/spine was consulted and recommended medical optimization prior to surgical intervention or referral to tertiary care based on her weight and comorbidities. Overnight she developed interval sensory deficits in the left lower extremity and inability to dorsiflex her hallux and ankle on the left side consistent with progressive motor and sensory loss of cauda equina. [facility] was contacted for emergent transfer and surgical intervention, patient was accepted for transfer by Dr. Alexandre. Decadron was deferred at the recommendation of spine surgery. Altered mental status, intermittent confusion? Polypharmacy On admission patient had presented with intermittent confusion worsened over the last month in the setting of increased pain and social stressors including several deaths in the family. She had a history of chronic pain and depression managed with Cymbalta, gabapentin, and baclofen. CT/CTA head and neck were without intracranial abnormalities, concern was raised for increased medication use in the setting of acute pain leading to sedation and confusion. She was observed overnight with cautious pain control as needed but developed increasing pain and signs of cauda equina as above and was transferred for further care. Acute Lyme serology collected by the emergency department showed incidental Lyme IgM positive and she was treated with doxycycline 100 mg twice daily. She did not have any fevers or erythema migrans on admission. Hypertension Antonieta has a history of hypertension, she was continued on her prior to admission amlodipine and Lasix. GERD Antonieta has a history of chronic GERD, she was continued on her prior to admission pantoprazole daily. Type 2 diabetes [id number] Antonieta has a history of type 2 diabetes on glipizide with last A1c 6.5%. She was placed on sliding scale with BMP daily's with adequate glycemic control during admission. (2) Acute urinary retention: Total Time Total Time Spent Total Time Spent (In Minutes): <30 Discharge Plan Discharge Items Patient Disposition: Transfer Acute Care Hospital Reason For Visit: CONFUSION AND ALTERED MENTAL STATUS Discharge Diagnosis: intermittent confusion lumbar spinal stenosis Activity: Per Instructions section Non-emergency contact: Primary Care Provider Call non-emergency contact if: you have any medication questions, your symptoms worsen and your temperature is above 101 Follow-up/Referrals: Chava Ronquillo MD [Primary Care Provider] - Diet: Regular Addtl Attending Provider Instructions: Antonieta was admitted to the hospital for altered mental status and confusion initially thought to be due to polypharmacy for chronic back pain. She developed worsening back pain and lower extremity weakness/numbness with associated urinary retention during admission and had an MRI consistent with cauda equina syndrome. Orthopedics was not comfortable performing surgery at this facility due to comorbidities including weight of 136 kg, type 2 diabetes mellitus, COPD, and hypertension and recommended referral to tertiary care. You have been accepted for further care at [facility] and are being transferred to their service. Steroid treatment has been deferred at the recommendation of [facility] spine surgery. Discharge summary attached for transfer at time of discharge Pending Studies at Discharge: No Stand-Alone Forms: My [facility] Skilled Items Patient informed of condition?: Yes DNR: No Discharge Level of Care: Other Communicable Disease: No Discharge Prognosis: Other Lines: Peripheral IV Urinary Catheter: Yes Medications and DC Order Prescriptions: New lidocaine 5 % Adhesive Patch,Medicated 1 patch transdermal QAM Qty: 30 RF: 0 gabapentin 300 mg Capsule 300 mg PO HS Qty: 30 RF: 0 duloxetine 30 mg Capsule,Delayed Release(Dr/Ec) 30 mg PO QAM Qty: 30 RF: 0 Premarin 0.625 mg/gram cream See Rx Instructions .ROUTE .COMPLEX Qty: 30 RF: 0 Continued meloxicam 7.5 mg tablet 7.5 mg PO BID Qty: 60 RF: 5 (DME) compr.stocking,knee,long,large Misc See Rx Instructions .ROUTE .MEDSUPPLY Qty: 12 RF: 0 (DME) Manual Wheelchair Device See Rx Instructions .ROUTE .MEDSUPPLY Qty: 1 RF: 0 tramadol 50 mg tablet 100 mg PO Q6H PRN (Reason: pain) Qty: 90 RF: 0 gabapentin 300 mg capsule 300 mg PO .COMPLEX Qty: 180 RF: 2 pantoprazole 40 mg tablet,delayed release (DR/EC) 40 mg PO BID Qty: 180 RF: 3 (DME) Accu-Chek Kirstin Plus test strp strip See Dose Instructions .ROUTE .MEDSUPPLY Qty: 200 RF: 3 albuterol sulfate 2.5 mg /3 mL (0.083 %) solution for nebulization 2.5 mg INH QID PRN (Reason: shortness of breath or wheezing) Qty: 90 RF: 3 (DME) pen needle, diabetic [Comfort EZ Pen [place]] 31 gauge x 3/16" needle See Dose Instructions .ROUTE .MEDSUPPLY Qty: 100 RF: 0 (DME) lancets [Lancets,Thin] misc See Dose Instructions .ROUTE .MEDSUPPLY Qty: 200 RF: 3 cholecalciferol (vitamin D3) 1,000 unit capsule 3,000 units PO QAM RF: 0 amlodipine [Norvasc] 10 mg tablet 10 mg PO QAM Qty: 90 RF: 1 glimepiride [Amaryl] 1 mg tablet 1 mg PO QAM Qty: 90 RF: 3 albuterol sulfate 90 mcg/actuation HFA aerosol inhaler 2 puffs INH Q6H PRN (Reason: shortness of breath or wheezing) Qty: 18 RF: 3 fluticasone propion-salmeterol [Advair Diskus] 500-50 mcg/dose blister with device 1 puffs inhalation BID Qty: 60 RF: 3 baclofen 10 mg tablet 10 mg PO BID PRN (Reason: back pain) Qty: 60 RF: 5 potassium chloride 10 mEq capsule, extended release 10 meq PO BID Qty: 30 RF: 2 acetaminophen [Tylenol] 325 mg Tablet 325 mg PO QID PRN (Reason: Pain) RF: 0 pramipexole [Mirapex] 0.5 mg tablet 0.5 mg PO HS RF: 0 montelukast [Singulair] 10 mg tablet 10 mg PO HS RF: 0 doxycycline hyclate 100 mg tablet 100 mg PO BID 21 Days Qty: 42 RF: 0 biotin 5,000 mcg Tablet,Disintegrating 5,000 mcg PO QAM RF: 0 fexofenadine 180 mg tablet 180 mg PO QAM RF: 0 fluticasone propionate 50 mcg/actuation spray,suspension 2 sprays INTNAS DAILY PRN (Reason: NASALL CONGESTION) RF: 0 furosemide [Lasix] 40 mg tablet 40 mg PO QAM RF: 0 Discontinued duloxetine [Cymbalta] 60 mg capsule,delayed release(DR/EC) 60 mg PO HS Qty: 90 RF: 3 oxybutynin chloride 10 mg tablet extended release 24hr 40 mg PO HS RF: 0 duloxetine [Cymbalta] 30 mg capsule,delayed release(DR/EC) 30 mg PO BID RF: 0 Discharge Orders: Discharge Order (Routine); Ordered 03/04/20 Ordered By: Tico Perez Admission Data Admit Date/Time: 02/29/20 17:29 Attending Provider: Jeramy Rivera Admit Provider: Carlos Buckner Primary Care Provider: Chava Ronquillo Other Providers: Carlos Buckner ; Joyce Negron ; Susana Garza ; [facility] Other Interventions: Discharge Summary Assessment (RN) Last Done: 03/04/20 14:15 DC Date/Time DO NOT enter until pt leaves facility: 03/04/20 15:18 Supervising Physician Co-Signing Physician Notes I personally examined the patient and verified all segura points of history and exam, discussed case, and agree with decision making with Dr Perez. awake sitting in chair back pain bad pain goes down both legs vitals noted nad heent nc at mmm breathing unlabored. L foot almost absent dorsiflexion, b/l no ability to raise great toe. no anesthesia to light touch - although is a little hyperesthetic L jacobson spinal stenosis - slowly worsening picture over last several weeks - due to operative risks yesterday spine rec'd optimizing for surgery, conservative care for now - but unfortunately with progression in deficits it appears that surgery cannot wait - was then set up for transfer to tertiary - anticipate surgery later today. probable toxic encephalopathy realted to gabapentin and cymbalta - and/or other polypharmacy - weaning back meds helped with this. hopefully will need less after she gets through post op period. possible lyme - endemic area, IgM positive - on doxy for now pending western blot. DVT proph - heparin SQ otherwise as above - transfer to [facility] [place] anticipate surgery later today. Resident Activity Tracking Resident Involvement: Resident Care Provided Care Provided: Adult Hospital Medicine
--- NOTE | 2020-03-04 19:59 | Billing Data ---
Date of Service March 04, 2020 Coding Level of Care Code D/C Day Management <30 mins
== END 2020-03-04 15:18 | disposition short-term general hospital (02) | DRG 92 ==
LOC: ED 11:02 → 2W 17:29 → SUATTDRO 17:29 → 2W 19:26 → 3E 03-02 21:21

== ENCOUNTER 2020-06-23 15:31 | Inpatient (IN) ==
[2020-06-23 17:04] LABS: Basophils # (auto) 0.02 K/uL (0-0.2); Basophils % (auto) 0.3 %; Eosinophils # (auto) 0.15 K/uL (0-0.5); Hemoglobin 11.4 g/dL (12.0-16.0); Immature Granulocytes # (auto) 0.01 K/uL (0.00-0.02); Immature Granulocytes % (auto) 0.1 %; Lymphocytes # (auto) 2.29 K/uL (1.2-3.4); Lymphocytes % (auto) 30.3 %; Mean Corpuscular Hemoglobin 29.9 pg (25-34); Mean Corpuscular Hgb Conc 30.8 g/dL (32-36); Mean Corpuscular Volume 97.1 fL (80-100); Mean Platelet Volume 9.1 fL (7.4-10.4); Monocytes % (auto) 11.9 %; Neutrophils # (auto) 4.18 K/uL (1.4-6.5); Neutrophils % (auto) 55.4 %; Platelet Count 233 K/uL (130-400); RDW Coefficient of Variation 13.9 % (11.5-14.5); RDW Standard Deviation 49.3 fL (36.4-46.3); Red Blood Count 3.81 M/uL (4.2-5.4); White Blood Count 7.55 K/uL (4.8-10.8)
[2020-06-23 17:33] LABS: Albumin Level 2.9 gm/dl (3.4-5.0); BUN Creatinine Ratio 27.4 (10-20); Calcium 9.2 mg/dl (8.5-10.1); Creatinine Clr Calc Pharmacy 90.8 ml/min; Est GFR (African American) 87.1; Est GFR (Non-African American) 75.2; Potassium 4.7 mmol/L (3.5-5.1)
[2020-06-23 17:45] LABS: Albumin Globulin Ratio 0.6 (0.9-2); Bilirubin,Total 0.2 mg/dl (0.2-1); Globulin 5.2 gm/dl (2.5-4.0); Thyroid Stimulating Hormone 1.19 uIu/ml (0.300-4.500); Total Protein 8.1 gm/dl (6.4-8.2)
--- NOTE | 2020-06-23 18:25 | XRay Report ---
KUB CLINICAL HISTORY: Left upper quadrant abdominal pain. FINDINGS: 3 AP, portable, supine abdominal radiographs are correlated with abdominal CT dated 02/28/20. The examination is degraded by large body habitus. Cholecystectomy clips are seen in the right up per quadrant. There is a nonobstructed abdominal bowel gas pattern. No evidence of intraperitoneal fr ee air is seen on these supine images. There are no abnormal abdominal calcifications. The liver appe ars enlarged. Fusion hardware is seen in the lower lumbar spine. IMPRESSION: Nonobstructed abdominal bowel gas pattern. Electronically signed by: Dario Craven M.D. 06/23/2020 6:24 PM
--- NOTE | 2020-06-23 18:35 | XRay Report ---
SINGLE VIEW CHEST CLINICAL HISTORY: Generalized weakness. FINDINGS: An AP, portable, upright chest radiograph is compared to study dated 02/29/2020. The examina tion is degraded by portable technique and apical lordotic positioning. The heart is enlarged. The pu lmonary vasculature is noncongested. There is bibasilar atelectasis. The lungs and pleural spaces are otherwise clear. No pneumothorax is seen. The skeletal structures are osteopenic. The bony thorax is grossly intact. A left shoulder arthroplasty is in place. Surgical anchors are present in the right humeral head. IMPRESSION: Cardiomegaly with no active disease in the chest. ACT 112: Negative or not required by law. Electronically signed by: Dario Cravne M.D. 06/23/2020 6:34 PM
[2020-06-23 18:51] LABS: Appearance Urine Clear (Clear); Bacteria Urine Automated Negative (Negative); Bilirubin Urine Negative (Negative); Blood Urine Negative (Negative); Color Urine Yellow; Epithelial Cell Urine Auto >30 /lpf (0-5); Glucose Urine UA Negative (Negative); Ketones Urine Negative (Negative); Leukocyte Esterase Urine Trace (Negative); Nitrite Urine Negative (Negative); Protein Urine Negative (Negative); RBC Urine Automated 0-4 /hpf (0-4); Specific Gravity Urine 1.012 (1.000-1.030); Urobilinogen Urine Negative (Negative); pH Urine 5.5 (4.5-7.5)
--- NOTE | 2020-06-23 20:45 | History & Physical Report ---
Date of Service June 23, 2020 Assessment & Plan (1) Ambulatory dysfunction: Antonieta Manning is a 69-year-old female with a past medical history of diabetes, fibromyalgia, COPD, and severe spinal stenosis status post surgical decompression who presents with worsening weakness and ambulatory dysfunction and associated pressure ulcers 2 weeks after discharge home from rehab. Bilateral lower extremity weakness, severe spinal stenosis status post cervical decompression She was discharged to [facility] and was subsequently discharged back to home 2 weeks ago. Since that time she has not been able to be set up with home therapy or home resources, and has spent most of the time sitting down and limited by ambulatory dysfunction. She has had 2 buttock ulcers develop, and feels that while her left side is doing okay her right side continues to be very weak. Her landlady was checking in on her 3 times per day, and her granddaughter stayed with her over the weekend but after her weakness continued to be profound and they were concerned for her ability to care for herself they recommended she [facility] for severe deconditioning and unsafe home environment. No acute worsening, patient continues to have ambulatory dysfunction with gradual worsening deconditioning now unsafe to care for self at home PT/OT consulted, case management consulted for placement suspect patient will need SNF level of care See HPI for imaging report copies pre/post intervention MRI above was reviewed by Dr. Pressley, due to her comorbidities and severe disease was referred to intervention at [facility] [place] [facility]. L2-L4 laminectomy, posterior spine instrumentation and fusion was performed on 03/05/2020. She was subsequently discharged on 03/13/2020 with intact sensation in L2-L3, diminished sensation in L4 L5-S1 bilaterally and with motor exam 1/5 anterior tib, EHL, GS bilaterally with 3+ quad bilaterally and 3+ hip flexor bilaterally. -On admitting exam 2+ ankle dorsiflexion/1+ ankle plantarflexion bilaterally, 4 - hip flexion bilaterally, 4/5 knee flexion/extension bilaterally. Pressure ulcerations, buttock near gluteal cleft No overlying cellulitis Patient turning, skin care, pressure ulcer precautions Hypertension Continue lisinopril 5 mg p.o. 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 3 times daily as needed Sinus congestion, sinusitis Diagnosed as outpatient, improving symptoms Covid negative Continue doxycycline for total 1 wk course DVT prophylaxis: SCDs Diet: Diabetic Disposition: Medical surgical CODE STATUS: DNR/DNI discussed with patient (2) Foot drop, bilateral: (3) HTN (hypertension): (4) Hyperlipidemia: (5) Chronic radicular lumbar pain: (6) Edema: (7) COPD (chronic obstructive pulmonary disease): (8) GERD (gastroesophageal reflux disease): (9) Lumbar spinal stenosis: (10) Diabetes mellitus: (11) Asthma: (12) Fibromyalgia: History of Present Illness Chief Complaint: Ambulatory dysfunction Primary Care Provider: Bismark Ronquillo MD Antonieta Manning is a 69-year-old female with a past medical history of diabetes, fibromyalgia, COPD, and severe spinal stenosis status post surgical decompression who presents with worsening weakness and ambulatory dysfunction an d associated pressure ulcers 2 weeks after discharge home from rehab. Antonieta reports that she is here for inability to ambulate and ulcers on her buttock. She reports that she had surgery for severe spinal stenosis in [place] and was discharged to [facility] rehab following her surgery in February. At the time of discharge she was having lower extremity weakness bilaterally. She reports that at rehab she did "okay "and was starting to get a little bit stronger but still required 1 person assist and had trouble pivoting, but was able to do so sufficiently well to be discharged home on June 11. She reports since that time they have not been able to set her up with home therapy or home resources, and she has continued to weaken. On her granddaughter visited this weekend they are having difficulty helping her care and move around her trailer, she felt that Antonieta was too weak to care for herself at home and recommended she be seen in the emergency department. Patient denies new defici t, just chronic not improving weakness. She endorses foot drop bilaterally which is not improving. She had one sliding fall Tuesday, did not strike her head but slid to the floor and had difficulty standing. Denies weeping/discharge from the sores. She developed some sinus congestion 7 days ago and was placed on a 1 week course of doxycycline for sinusitis by her outpatient provider. Otherwise she feels that she has not had any sicklike symptoms, and denies fever, chills, sweats, shortness of breath, chest pain, difficulty breathing, cough, sputum production, burning with urination, inability to void, polyuria, abdominal pain. Has had multiple negative Covid tests including 1 on ER evaluation. She reports that her inability to ambulate well has caused her to develop buttock sores. Medical history: Reviewed Medications: Reviewed. Patient is not currently taking glimepiride which is on hold Surgical history: Reviewed, see below Allergies: Reviewed with patient, cetirizine and Metformin no anaphylaxis Family history: Noncontributory Social: Denies tobacco, alcohol, and recreational drug use. Lives in a trailer alone, has a landlord who checks in on her several times a day and a granddaughter who is visiting over the weekend. No recent sick contacts. Reports has had multiple negative tests for Covid including 1 on ER presentation today. Imaging review below MRI 03/02/2020:Progressive degenerative disc disease as described above. This is most pronounced at the L2-L3 and L3-L4 levels which demonstrates severe central canal narrowing. There is no appreciable thecal sac at the L3-L4 level which is therefore consistent with compression of the cauda equina. Surgical consultation recommended for possible decompression of the lumbar spine. No acute fracture or subluxation. Endplate edema at L3-L4 is nonspecific but favors the long-standing degenerative change. [facility] [place] Read 03/04/2020 CT Spine Lumbar w/o Contrast EXAMINATION: CT OF THE LUMBAR SPINE WITHOUT CONTRAST CLINICAL HISTORY: evaluate bone anatomy COMPARISON: Outside lumbar spine MRI dated 03/02/2020. TECHNIQUE: Routine helical CT of the lumbar spine without contrast, coronal and sagittal reconstructions. DOSE: Total Reported Dose Length Product (DLP) = 1640.01 mGy.cm FINDINGS: Alignment: Minimal anterolisthesis of L3 on L4. No other subluxation. Decreased AP diameter of the canal secondary to shortened pedicles. Vertebrae: No compression fractures or other fractures. Paraspinal space: Unremarkable. Visualized retroperitoneal: Unremarkable. Axial interbody analysis: T12-L1: Bilateral facet and ligamentous hypertrophy. Shortened pedicles. Minimal central canal stenosis and minimal bilateral neural foraminal stenosis. L1-L2: Bilateral facet and ligamentous hypertrophy. Shortened pedicles. Minimal central canal stenosis and minimal bilateral neural foraminal stenosis. L2-L3: Mild annular bulge with severe facet and ligamentous hypertrophy. Shor tened pedicles. There is moderate to severe/severe central canal stenosis and mild to moderate bilateral neural foraminal stenosis. L3-L4: Posterior spondylitic ridging and diffuse annular bulge with severe bilateral facet and ligamentous hypertrophy. Shortened pedicles. Severe central canal stenosis with moderate to severe bilateral neural foraminal stenosis. L4-L5: Posterior spondylitic ridging and diffuse annular bulge. Bilateral facet and ligamentous hypertrophy. Shortened pedicles. Moderate/moderate to severe central canal stenosis. Moderate bilateral neural foraminal stenosis. L5-S1: Bilateral facet hypertrophy. No central canal stenosis. Minimal to mild bilateral neural foraminal stenosis. IMPRESSION: Severe spinal canal stenosis that is multifactorial in nature. This is greatest at L3/L4 with similar but slightly milder changes at L2/L3 and L4/L5. No acute bony abnormality. Post Surgical XR Reason For Exam Lumbar Fusion XR Spine Lumbosacral 2 or 3 Views FINDINGS: AP and lateral views of the lumbar spine show transitional anatomy with partial sacralization of L5 on the left. Utilizing this numbering system there are postoperative changes of L2-L4 posterior decompression with instrumented interbody and posterior fusion. Less than 1 mm of radiolucency around the L2 pedicle screws. Unchanged anterolisthesis of L3 on L4. Severe disc degenerative change at L4-L5 and L5-S1. Anterior osteophytes in the lower thoracic spine with multilevel disc degenerative changes. Atherosclerotic calcification of the aorta. Moderate degenerative change of the sacroiliac joints and hips. IMPRESSION: L2-L4 posterior decompression and instrumented interbody and posterior fusion. Minimal radiolucency around the L2 pedicle screws-attention on follow-up imaging is recommended to evaluate for loosening. [facility] Note 06/10/2020: PLAN: At this time, we discussed with the patient today that we agree with her that she does still need dedicated rehabilitation for her lower extremities, particularly for leg strengthening and gait training. We have counseled her that muscle strengthening can take weeks to months post surgery, but we cannot guarantee that her function will be restored. We have also instructed her that good diabetic control is important for nerve health. She should continue calcium and vitamin D supplementation. Handout was provided. We also provided her with a home physical therapy order, so that there should not be any delay in her getting home therapy when she is formally discharged from the facility, where she is residing. We have asked her to call with any questions or concerns, and we will plan to see her back in 4 months with x-rays of the lumbar spine including AP and lateral views upon arrival. Dr. Alexandre was present for the treatment and p Allergies Allergy/AdvReac Type Severity Reaction Status Date / Time cetirizine Allergy Intermediate RASH Verified 06/18/20 11:32 metformin AdvReac Unknown GI upset Verified 06/18/20 11:32 Home Medications Home Medications Medication Instructions Recorded Confirmed Type albuterol sulfate 2.5 mg INH QID PRN #90 ml 01/22/19 06/23/20 Rx cholecalciferol (vitamin D3) 25 3,000 units PO QAM cap 01/26/19 06/23/20 History mcg (1,000 unit) capsule biotin 5,000 mcg PO QAM 04/18/19 06/23/20 History fluticasone propionate 2 sprays INTNAS DAILY PRN 04/18/19 06/23/20 History albuterol sulfate 90 mcg/actuation 2 puffs INH Q6H PRN #18 gm 01/03/20 06/23/20 Rx aerosol inhaler glimepiride 1 mg tablet 1 mg PO QAM #90 tab 01/03/20 06/23/20 Rx potassium chloride 10 mEq 10 meq PO BID #30 cap 02/04/20 06/23/20 Rx capsule,extended release furosemide [Lasix] 40 mg PO QAM 02/15/20 06/23/20 History pantoprazole 40 mg tablet,delayed 40 mg PO BID #180 tab 02/25/20 06/23/20 Rx release acetaminophen [Tylenol] 325 mg PO QID PRN 02/28/20 06/23/20 History montelukast [Singulair] 10 mg PO HS 02/28/20 06/23/20 History pramipexole [Mirapex] 0.5 mg PO HS 02/28/20 06/23/20 History cyclobenzaprine 5 mg tablet 5 mg PO TID PRN 06/18/20 06/23/20 History duloxetine 30 mg capsule,delayed 30 mg PO BID #30 cap 06/18/20 06/23/20 Rx release gabapentin 300 mg capsule 300 mg PO BID cap 06/18/20 06/23/20 History oxybutynin chloride 10 mg 10 mg PO DAILY 06/18/20 06/23/20 History tablet,extended release 24 hr rosuvastatin 10 mg tablet 10 mg PO DAILY 06/18/20 06/23/20 History tramadol 50 mg tablet 100 mg PO Q6H PRN #90 tab 06/18/20 06/23/20 Rx lisinopril 5 mg tablet 5 mg PO DAILY #90 tab 06/20/20 06/23/20 Rx conjugated estrogens [Premarin] 0.3125 mg VAGINAL 2XWK 06/23/20 06/23/20 History doxycycline hyclate 100 mg PO BID 06/23/20 06/23/20 History fluticasone furoate-vilanterol 1 inh INHALATION DAILY 06/23/20 06/23/20 History [Breo Ellipta] lisinopril 5 mg PO DAILY 06/23/20 06/23/20 History potassium chloride 10 meq PO BID 06/23/20 06/23/20 History Past Med/Surg History Medical History (Updated 06/20/20 @ 11:41 by Dina Perez MA) Ambulatory dysfunction Anxiety Asthma stable COPD (chronic obstructive pulmonary disease) Stable and controlled Depressive disorder Diabetes mellitus NIDDM- stable and controlled per patient Fibromyalgia Constant pain Foot drop, bilateral Gastroparesis GERD (gastroesophageal reflux disease) controlled History of ear infection hx recurrent ear infections s/p drainage tube in left ear - no recent issues History of urinary incontinence chronic History of urinary urgency chronic Hyperlipidemia Hypertension Lumbar spinal stenosis Severe at L3-4 Mixed conductive and sensorineural hearing loss Morbid obesity On home oxygen therapy 3LPM at HS Restless leg syndrome Sleep apnea CPAP Surgical History H/O: hysterectomy History of cholecystectomy History of esophagogastroduodenoscopy (EGD) History of left knee replacement History of left shoulder replacement History of repair of right rotator cuff History of right knee joint replacement History of surgery on upper extremity LET ARM ABSCESS History of tonsillectomy History of tooth extraction all teeth Hx of colonoscopy Family History Brother Family history of diabetes mellitus Sister Family history of diabetes mellitus Mother Family history of diabetes mellitus Stroke Aunt Family history of diabetes mellitus Father Myocardial infarction Denies family history of Ovarian cancer Prostate cancer Breast cancer Colorectal cancer Social History Smoking Status: Never smoker Second Hand Exposure: Yes; Hx Alcohol Use: No Hx Substance Use: No Preferred Language: Kazakh Communication Ability: Effective 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 NAD. Cooperative. Obese. Skin: Right buttock near gluteal cleft with 2X superficial skin erosion, no purulence or spreading erythema. HEENT: Atraumatic, normocephalic. Acuity grossly intact. Hearing grossly intact. Pupils equal and reactive to light and accommodation. Pulm: CTAB A&P. -wheezes, -rales, -rhonchi. Symmetrical chest rise. No increase work of breathing. No respiratory distress. Cardiac: RRR, -mrg. Radial pulses intact and symmetrical. Abdominal: Healed midline incision from prior hysterectomy present. Nontender, nondistended, soft. BS present. CRANIAL NERVES: II: Pupils equal and reactive, no relative afferent pupillary defect, no VF cuts III, IV, : EOM intact, no gaze preference or deviation, no nystagmus. V: normal sensation in V1, V2, and V3 segments bilaterally VII: no asymmetry, no nasolabial fold flattening VIII: normal hearing to speech IX, X: normal palatal elevation, no uvular deviation XI: 5/5 head turn and 5/5 shoulder shrug bilaterally XII: midline tongue protrusion MOTOR: RUE: 5/5 Shoulder internal rotation, external rotation, flexion, extension, abduct ion, adduction 5/5 Elbow flexion/extension, wrist flexion/extension 5/5 music agent strength, finger flexion/extension, interosseus LUE: 5/5 Shoulder internal rotation, external rotation, flexion, extension, abduction, adduction 5/5 Elbow flexion/extension, wrist flexion/extension 5/5 music agent strength, finger flexion/extension, interosseus LE: Both feet in foot drop boot. 2+ ankle dorsiflexion/1+ ankle plantarflexion bilaterally, 4 - hip flexion bilaterally, 4/5 knee flexion/extension bilaterally. SENSORY: Normal to touch in upper and lower extremities without deficit or asymmetry Results & Data Results & Data ([facility] [place]) Vital Signs (Past 12 Hours) Vital Signs Temp Pulse Resp BP Pulse Ox 06/23/20 19:30 64 20 125/65 94 06/23/20 19:00 65 15 127/79 06/23/20 18:50 65 17 06/23/20 18:40 65 16 06/23/20 18:30 74 18 95 06/23/20 18:27 72 16 109/61 06/23/20 18:20 71 12 06/23/20 18:10 71 15 06/23/20 18:00 75 18 06/23/20 17:50 75 18 06/23/20 17:40 77 15 06/23/20 17:30 74 18 06/23/20 17:20 71 18 06/23/20 17:10 65 24 90 06/23/20 17:00 66 13 94 06/23/20 16:50 60 24 93 06/23/20 16:44 95 06/23/20 16:42 65 15 93 06/23/20 16:01 36.8 C 76 22 123/70 93 06/23/20 15:39 61 20 123/70 Supervising Physician Co-Signing Physician Notes Attending addendum: I have physically seen this patient, have supervised the medical residents activities, and agree with the H&P unless as otherwise noted. Assessment and Plan: Ambulatory dysfunction/bilateral lower extremity weakness/severe spinal stenosis status post cervical decompression- After surgery, patient had gone to [facility] rehab, and then was discharged home 2 weeks ago. Home therapy had not been set up yet, and patient has not been very physically active due to that. She was advised by family to come to the emergency department for reassessment for severe deconditioning and inability to care for self at home. Consult PT/OT. Initial surgery had been performed at [facility] on 03/05/2020, and was discharged on 03/13/2020 Pressure ulcers near gluteal cleft- Consult wound care for suggestions. Remaining orders and notations as noted. Resident Activity Tracking Resident Involvement: Resident Care Provided Care Provided: Adult Hospital Medicine (1) Lumbar spinal stenosis Neurogenic claudication status: unspecified Qualified Code(s): M48.061 - Spinal stenosis, lumbar region without neurogenic claudication
[2020-06-23] MEDS ORDERED: ACETAMINOPHEN 325 MG TAB ONE (22:08)
--- NOTE | 2020-06-23 22:22 | Emergency Department Note ---
History of Present Illness General Chief complaint: Skin Problem Stated complaint: PRESSURE ULCERS BUTTOCKS Time Seen by Provider: 06/23/20 15:33 Source: patient, family (Family at the bedside) and RN notes reviewed Mode of arrival: EMS Limitations: no limitations History of Present Illness Provider complaint: Needs long-term placement, pressure wound Maximum Pain Intensity: 9 This patient is a 69-year-old female who presents emergency department with complaints of deconditioning. The patient states she had back surgery in February of this year and was sent home from the correction approximately 2 weeks ago. She has had chronic right lower extremity weakness since the surgery. She has an inability to ambulate without significant assistance. The patient resides in a trailer and has little to no help at home. She states she has a few friends rotating in and out a few times a week. Patient was evaluated today by a home nurse and was told that she has skin breakdown on her buttocks. They do not feel that her home is amenable to the equipment that she will require such as a lift and the walker. The patient desires a rehab and potentially long-term care. She states she has difficulty even ambulating to the bathroom. Patient states she has a sinus infection that is currently being treated with doxycycline. She has had cough but states she was tested several weeks ago for Covid and is negative. Home Medications Home Medications Medication Instructions Recorded Confirmed Type albuterol sulfate 2.5 mg INH QID PRN #90 ml 01/22/19 06/23/20 Rx cholecalciferol (vitamin D3) 25 3,000 units PO QAM cap 01/26/19 06/23/20 History mcg (1,000 unit) capsule biotin 5,000 mcg PO QAM 04/18/19 06/23/20 History fluticasone propionate 2 sprays INTNAS DAILY PRN 04/18/19 06/23/20 History albuterol sulfate 90 mcg/actuation 2 puffs INH Q6H PRN #18 gm 01/03/20 06/23/20 Rx aerosol inhaler glimepiride 1 mg tablet 1 mg PO QAM #90 tab 01/03/20 06/23/20 Rx potassium chloride 10 mEq 10 meq PO BID #30 cap 02/04/20 06/23/20 Rx capsule,extended release furosemide [Lasix] 40 mg PO QAM 02/15/20 06/23/20 History pantoprazole 40 mg tablet,delayed 40 mg PO BID #180 tab 02/25/20 06/23/20 Rx release acetaminophen [Tylenol] 325 mg PO QID PRN 02/28/20 06/23/20 History montelukast [Singulair] 10 mg PO HS 02/28/20 06/23/20 History pramipexole [Mirapex] 0.5 mg PO HS 02/28/20 06/23/20 History cyclobenzaprine 5 mg tablet 5 mg PO TID PRN 06/18/20 06/23/20 History duloxetine 30 mg capsule,delayed 30 mg PO BID #30 cap 06/18/20 06/23/20 Rx release gabapentin 300 mg capsule 300 mg PO BID cap 06/18/20 06/23/20 History oxybutynin chloride 10 mg 10 mg PO DAILY 06/18/20 06/23/20 History tablet,extended release 24 hr rosuvastatin 10 mg tablet 10 mg PO DAILY 06/18/20 06/23/20 History tramadol 50 mg tablet 100 mg PO Q6H PRN #90 tab 06/18/20 06/23/20 Rx lisinopril 5 mg tablet 5 mg PO DAILY #90 tab 06/20/20 06/23/20 Rx conjugated estrogens [Premarin] 0.3125 mg VAGINAL 2XWK 06/23/20 06/23/20 History doxycycline hyclate 100 mg PO BID 06/23/20 06/23/20 History fluticasone furoate-vilanterol 1 inh INHALATION DAILY 06/23/20 06/23/20 History [Breo Ellipta] lisinopril 5 mg PO DAILY 06/23/20 06/23/20 History potassium chloride 10 meq PO BID 06/23/20 06/23/20 History Allergies Allergy/AdvReac Type Severity Reaction Status Date / Time cetirizine Allergy Intermediate RASH Verified 06/18/20 11:32 metformin AdvReac Unknown GI upset Verified 06/18/20 11:32 Past Med/Surg History Medical History Ambulatory dysfunction Anxiety Asthma stable COPD (chronic obstructive pulmonary disease) Stable and controlled Depressive disorder Diabetes mellitus NIDDM- stable and controlled per patient Fibromyalgia Constant pain Foot drop, bilateral Gastroparesis GERD (gastroesophageal reflux disease) controlled History of ear infection hx recurrent ear infections s/p drainage tube in left ear - no recent issues History of urinary incontinence chronic History of urinary urgency chronic Hyperlipidemia Hypertension Lumbar spinal stenosis Severe at L3-4 Mixed conductive and sensorineural hearing loss Morbid obesity On home oxygen therapy 3LPM at HS Restless leg syndrome Sleep apnea CPAP Surgical History H/O: hysterectomy History of cholecystectomy History of esophagogastroduodenoscopy (EGD) History of left knee replacement History of left shoulder replacement History of repair of right rotator cuff History of right knee joint replacement History of surgery on upper extremity LET ARM ABSCESS History of tonsillectomy History of tooth extraction all teeth Hx of colonoscopy Family History Brother Family history of diabetes mellitus Sister Family history of diabetes mellitus Mother Family history of diabetes mellitus Stroke Aunt Family history of diabetes mellitus Father Myocardial infarction Denies family history of Ovarian cancer Prostate cancer Breast cancer Colorectal cancer Social History Smoking Status: Never smoker Second Hand Exposure: Yes; Hx Alcohol Use: No Hx Substance Use: No Preferred Language: Albanian Communication Ability: Effective V[place]ette Required: No Beliefs That Will Affect Care: None marital status: / Current Living Situation: Alone Feels Safe at Home: Yes Assistive Devices: Denture - Upper, Denture - Lower, Glasses and Walker Review of Systems See HPI for pertinent positives & negatives. and A total of 10 systems reviewed and were otherwise negative Physical Exam Vital Signs Vital Signs - 24 hr 06/23/20 15:39 06/23/20 16:01 06/23/20 16:42 Temperature 36.8 C Temperature Source Oral Pulse Rate 61 76 65 Pulse Rate from SpO2 Sensor 61 65 Respiratory Rate 20 22 15 Respiratory Effort / Characteristics Non-Labored Respiratory Depth Normal Blood Pressure 123/70 123/70 Blood Pressure Mean 82 87 Pulse Oximetry 93 93 Oxygen Delivery Method Room Air Sepsis Recent Fever Within 48 Hours No Sepsis New/Unexplained Change in Mental Status No Sepsis Action Taken by Nursing No Action Required 06/23/20 16:44 06/23/20 16:50 06/23/20 17:00 Temperature Temperature Source Pulse Rate 60 66 Pulse Rate from SpO2 Sensor 60 64 Respiratory Rate 24 13 Respiratory Effort / Characteristics Respiratory Depth Blood Pressure Blood Pressure Mean Pulse Oximetry 95 93 94 Oxygen Delivery Method Room Air Sepsis Recent Fever Within 48 Hours Sepsis New/Unexplained Change in Mental Status Sepsis Action Taken by Nursing 06/23/20 17:10 06/23/20 17:20 06/23/20 17:30 Temperature Temperature Source Pulse Rate 65 71 74 Pulse Rate from SpO2 Sensor 66 Respiratory Rate 24 18 18 Respiratory Effort / Characteristics Respiratory Depth Blood Pressure Blood Pressure Mean Pulse Oximetry 90 Oxygen Delivery Method Sepsis Recent Fever Within 48 Hours Sepsis New/Unexplained Change in Mental Status Sepsis Action Taken by Nursing 06/23/20 17:40 06/23/20 17:50 06/23/20 18:00 Temperature Temperature Source Pulse Rate 77 75 75 Pulse Rate from SpO2 Sensor Respiratory Rate 15 18 18 Respiratory Effort / Characteristics Respiratory Depth Blood Pressure Blood Pressure Mean Pulse Oximetry Oxygen Delivery Method Sepsis Recent Fever Within 48 Hours Sepsis New/Unexplained Change in Mental Status Sepsis Action Taken by Nursing 06/23/20 18:10 06/23/20 18:20 06/23/20 18:27 Temperature Temperature Source Pulse Rate 71 71 72 Pulse Rate from SpO2 Sensor Respiratory Rate 15 12 16 Respiratory Effort / Characteristics Respiratory Depth Blood Pressure 109/61 Blood Pressure Mean 71 Pulse Oximetry Oxygen Delivery Method Sepsis Recent Fever Within 48 Hours Sepsis New/Unexplained Change in Mental Status Sepsis Action Taken by Nursing 06/23/20 18:30 06/23/20 18:40 06/23/20 18:50 Temperature Temperature Source Pulse Rate 74 65 65 Pulse Rate from SpO2 Sensor 74 Respiratory Rate 18 16 17 Respiratory Effort / Characteristics Respiratory Depth Blood Pressure Blood Pressure Mean Pulse Oximetry 95 Oxygen Delivery Method Sepsis Recent Fever Within 48 Hours Sepsis New/Unexplained Change in Mental Status Sepsis Action Taken by Nursing 06/23/20 19:00 06/23/20 19:30 06/23/20 20:00 Temperature Temperature Source Pulse Rate 65 64 66 Pulse Rate from SpO2 Sensor Respiratory Rate 15 20 20 Respiratory Effort / Characteristics Respiratory Depth Blood Pressure 127/79 125/65 136/67 Blood Pressure Mean 86 85 87 Pulse Oximetry 94 96 Oxygen Delivery Method Room Air Sepsis Recent Fever Within 48 Hours Sepsis New/Unexplained Change in Mental Status Sepsis Action Taken by Nursing 06/23/20 20:31 06/23/20 21:01 06/23/20 21:30 Temperature Temperature Source Pulse Rate 71 72 69 Pulse Rate from SpO2 Sensor Respiratory Rate 20 18 20 Respiratory Effort / Characteristics Respiratory Depth Blood Pressure 111/72 108/79 133/66 Blood Pressure Mean 80 86 110 Pulse Oximetry 96 93 91 Oxygen Delivery Method Sepsis Recent Fever Within 48 Hours Sepsis New/Unexplained Change in Mental Status Sepsis Action Taken by Nursing 06/23/20 22:11 Temperature Temperature Source Pulse Rate 69 Pulse Rate from SpO2 Sensor Respiratory Rate 20 Respiratory Effort / Characteristics Respiratory Depth Blood Pressure 129/59 L Blood Pressure Mean 82 Pulse Oximetry 93 Oxygen Delivery Method Room Air Sepsis Recent Fever Within 48 Hours Sepsis New/Unexplained Change in Mental Status Sepsis Action Taken by Nursing Vital signs reviewed. General: Chronically ill-appearing 69-year-old female, in no significant distress. HEENT: No scleral icterus, PERRLA, neck supple. Atraumatic. Cardiovascular: Regular rate and rhythm, no extra sounds. Pulmonary: Clear to auscultation bilaterally, normal work of breathing. Abdomen: Soft, obese, minimal tenderness to palpation of the left upper quadrant, nondistended, positive bowel sounds. Musculoskeletal: Atraumatic, no peripheral edema. Neurologic: Patient awake alert and oriented x 3, 2+/5 strength in the right lower extremity, 4+/5 strength in left lower extremity Skin: Warm, dry, no rash Course Administered Medications Acetaminophen (Acetaminophen 325 Mg Tab) 650 mg PO Q4H PRN PRN Reason: pain Stop: 07/24/20 00:25 Last Admin: 06/26/20 14:22 Dose: 650 mg Documented by: [id number] Admin: 06/25/20 16:15 Dose: 650 mg Documented by: [id number] Cyclobenzaprine HCl (Cyclobenzaprine Hcl 5 Mg Tab) 5 mg PO TID PRN PRN Reason: Spasms Stop: 07/24/20 00:25 Last Admin: 06/24/20 12:48 Dose: 5 mg Documented by: [id number] Duloxetine HCl (Duloxetine Hcl 30 Mg Cap) 30 mg PO BID DEDE Stop: 07/24/20 00:25 Last Admin: 06/26/20 09:34 Dose: 30 mg Documented by: [id number] Admin: 06/25/20 21:29 Dose: 30 mg Documented by: [id number] Admin: 06/25/20 09:29 Dose: 30 mg Documented by: [id number] Admin: 06/24/20 21:21 Dose: 30 mg Documented by: [id number] Admin: 06/24/20 09:26 Dose: 30 mg Documented by: [id number] Admin: 06/24/20 01:13 Dose: 30 mg Documented by: [id number] Fluticasone/Vilanterol (Fluticasone/Vilanterol 100/25mcg 14 Puffs/Inhaler) 1 puffs INH DAILY DEDE Stop: 07/24/20 08:59 Last Admin: 06/26/20 09:35 Dose: 1 puffs Documented by: [id number] Admin: 06/25/20 09:01 Dose: 1 puffs Documented by: [id number] Admin: 06/24/20 09:24 Dose: 1 puffs Documented by: [id number] Furosemide (Furosemide 40 Mg Tab) 40 mg PO QAM DEDE Stop: 07/24/20 08:59 Last Admin: 06/25/20 08:56 Dose: 40 mg Documented by: [id number] Admin: 06/24/20 09:27 Dose: 40 mg Documented by: [id number] Gabapentin (Gabapentin 300 Mg Cap) 300 mg PO BID DEDE Stop: 07/24/20 08:59 Last Admin: 06/26/20 09:34 Dose: 300 mg Documented by: [id number] Admin: 06/25/20 21:29 Dose: 300 mg Documented by: [id number] Admin: 06/25/20 08:57 Dose: 300 mg Documented by: [id number] Admin: 06/24/20 21:22 Dose: 300 mg Documented by: [id number] Admin: 06/24/20 09:25 Dose: 300 mg Documented by: [id number] Insulin Aspart (Insulin Aspart 100 Units/Ml 3 Ml Pen) 0 units SC ACHS DEDE Stop: 07/24/20 07:29 Last Admin: 06/26/20 12:58 Dose: 6 units Documented by: [id number] Cosigned by: [id number] Admin: 06/26/20 09:32 Dose: 3 units Documented by: [id number] Cosigned by: [id number] Admin: 06/25/20 21:35 Dose: 2 units Documented by: [id number] Cosigned by: [id number] Admin: 06/25/20 18:22 Dose: 5 units Documented by: [id number] Cosigned by: [id number] Admin: 06/25/20 13:30 Dose: 5 units Documented by: [id number] Cosigned by: [id number] Admin: 06/25/20 08:59 Dose: 3 units Documented by: [id number] Cosigned by: [id number] Admin: 06/24/20 21:07 Dose: Not Given Documented by: [id number] Cosigned by: [id number] Admin: 06/24/20 17:31 Dose: 6 units Documented by: [id number] Cosigned by: [id number] Admin: 06/24/20 12:48 Dose: 4 units Documented by: [id number] Cosigned by: [id number] Admin: 06/24/20 09:23 Dose: 2 units Documented by: [id number] Cosigned by: [id number] Insulin Glargine (Insulin Glargine Solostar 100 Units/Ml 3 Ml Pen) 13 units SC BID DEDE Stop: 07/24/20 00:25 Last Admin: 06/26/20 09:33 Dose: 13 units Documented by: [id number] Cosigned by: [id number] Admin: 06/25/20 21:34 Dose: 13 units Documented by: [id number] Cosigned by: [id number] Admin: 06/25/20 08:58 Dose: 13 units Documented by: [id number] Cosigned by: [id number] Admin: 06/24/20 21:07 Dose: 13 units Documented by: [id number] Cosigned by: [id number] Admin: 06/24/20 09:27 Dose: 13 units Documented by: [id number] Cosigned by: [id number] Admin: 06/24/20 01:13 Dose: 13 units Documented by: [id number] Cosigned by: [id number] Lisinopril (Lisinopril 5 Mg Tab) 5 mg PO DAILY DEDE Stop: 07/24/20 08:59 Last Admin: 06/25/20 08:56 Dose: 5 mg Documented by: [id number] Admin: 06/24/20 09:26 Dose: 5 mg Documented by: [id number] Montelukast Sodium (Montelukast Sodium 10 Mg Tablet) 10 mg PO HS DEDE Stop: 07/24/20 20:59 Last Admin: 06/25/20 21:29 Dose: 10 mg Documented by: [id number] Admin: 06/24/20 21:22 Dose: 10 mg Documented by: [id number] Oxybutynin Chloride (Oxybutynin Chloride Xl 5 Mg Tabcr) 10 mg PO DAILY DEDE Stop: 07/24/20 08:59 Last Admin: 06/26/20 09:34 Dose: 10 mg Documented by: [id number] Admin: 06/25/20 08:57 Dose: 10 mg Documented by: [id number] Admin: 06/24/20 09:26 Dose: 10 mg Documented by: [id number] Pantoprazole Sodium (Pantoprazole 40 Mg Tab) 40 mg PO BID DEDE Stop: 07/24/20 08:59 Last Admin: 06/26/20 09:34 Dose: 40 mg Documented by: [id number] Admin: 06/25/20 21:29 Dose: 40 mg Documented by: [id number] Admin: 06/25/20 08:58 Dose: 40 mg Documented by: [id number] Admin: 06/24/20 21:21 Dose: 40 mg Documented by: [id number] Admin: 06/24/20 09:25 Dose: 40 mg Documented by: [id number] Pramipexole Dihydrochloride (Pramipexole Dihydrochlo 0.5 Mg Tab) 0.5 mg PO HS DEDE Stop: 07/24/20 20:59 Last Admin: 06/25/20 21:29 Dose: 0.5 mg Documented by: [id number] Admin: 06/24/20 21:22 Dose: 0.5 mg Documented by: [id number] Rosuvastatin Calcium (Rosuvastatin Calcium 10 Mg Tab) 10 mg PO DAILY DEDE Stop: 07/24/20 08:59 Last Admin: 06/26/20 09:34 Dose: 10 mg Documented by: [id number] Admin: 06/25/20 08:56 Dose: 10 mg Documented by: [id number] Admin: 06/24/20 09:25 Dose: 10 mg Documented by: [id number] Tramadol HCl (Tramadol Hcl 50 Mg Tablet) 100 mg PO Q6H PRN PRN Reason: pain Stop: 07/24/20 00:25 Last Admin: 06/25/20 22:01 Dose: 100 mg Documented by: [id number] Admin: 06/24/20 22:43 Dose: 100 mg Documented by: [id number] Admin: 06/24/20 09:47 Dose: 100 mg Documented by: [id number] Admin: 06/24/20 01:12 Dose: 100 mg Documented by: [id number] Discontinued Medications Acetaminophen (Acetaminophen 325 Mg Tab) Confirm Administered Dose 650 mg .ROUTE .STK-MED ONE Stop: 06/23/20 22:09 Last Admin: 06/23/20 22:10 Dose: 650 mg Documented by: [id number] Doxycycline Hyclate (Doxycycline Hyclate 100 Mg Cap) 100 mg PO BID DEDE Stop: 07/04/20 00:25 Last Admin: 06/24/20 09:25 Dose: 100 mg Documented by: [id number] Admin: 06/24/20 01:13 Dose: 100 mg Documented by: [id number] Polyethylene Glycol (Polyethylene (Miralax) 17 Gm Pack) 34 gm PO ONE ONE Stop: 06/25/20 16:53 Last Admin: 06/25/20 18:17 Dose: 34 gm Documented by: [id number] Polyethylene Glycol (Polyethylene (Miralax) 17 Gm Pack) 34 gm PO ONE ONE Stop: 06/26/20 08:54 Last Admin: 06/26/20 09:45 Dose: 34 gm Documented by: [id number] Medical Decision Making Differential Diagnosis Infection, dehydration, metabolic abnormality, hypo/hyperglycemia, electrolyte disturbance, anemia, hypoxia, cardiac sources, intracerebral event, toxicologic, neurologic, as well as other pathologies. Medical Records Attestation: I reviewed the patient's medical records. Home Medications Current Medication List: was personally reviewed by me Laboratory Data Attestation: I reviewed the patient's lab results. Result diagrams: 06/26/20 08:41 06/26/20 08:41 Lab Results 06/23/20 06/23/20 06/23/20 Range/Units 16:40 16:40 16:48 WBC 7.55 (4.8-10.8) K/uL RBC 3.81 L (4.2-5.4) M/uL Hgb 11.4 L (12.0-16.0) g/dL Hct 37.0 (37-47) % MCV 97.1 (80-100) fL MCH 29.9 (25-34) pg MCHC 30.8 L (32-36) g/dL RDW Std Deviation 49.3 H (36.4-46.3) fL RDW Coeff of Shant 13.9 (11.5-14.5) % Plt Count 233 (130-400) K/uL MPV 9.1 (7.4-10.4) fL Immature Gran % (Auto) 0.1 % Neut % (Auto) 55.4 % Lymph % (Auto) 30.3 % [place] % (Auto) 11.9 % Eos % (Auto) 2.0 % Baso % (Auto) 0.3 % Neut # (Auto) 4.18 (1.4-6.5) K/uL Lymph # (Auto) 2.29 (1.2-3.4) K/uL [place] # (Auto) 0.90 H (0.11-0.59) K/uL Eos # (Auto) 0.15 (0-0.5) K/uL Baso # (Auto) 0.02 (0-0.2) K/uL Immature Gran # (Auto) 0.01 (0.00-0.02) K/uL Sodium 135 L (136-145) mmol/L Potassium 4.7 (3.5-5.1) mmol/L Chloride 101 (98-107) mmol/L Carbon Dioxide 31 (21-32) mmol/L Anion Gap 3.0 (3-11) BUN 22 H (7-18) mg/dl Creatinine 0.81 (0.6-1.2) mg/dl Est Cr Clr Drug Dosing 90.8 ml/min Est GFR ( Amer) 87.1 Est GFR (Non-Af Amer) 75.2 BUN/Creatinine Ratio 27.4 H (10-20) Glucose 132 H (70-99) mg/dl POC Glucose (70-99) mg/dl Estimat Average Glucose mg/dl Hemoglobin A1c (4.5-5.6) % Calcium 9.2 (8.5-10.1) mg/dl Magnesium 2.0 (1.8-2.4) mg/dl Total Bilirubin 0.2 (0.2-1) mg/dl AST 9 L (15-37) U/L ALT 10 L (12-78) U/L Alkaline Phosphatase 76 (45-117) U/L Total Protein 8.1 (6.4-8.2) gm/dl Albumin 2.9 L (3.4-5.0) gm/dl Globulin 5.2 H (2.5-4.0) gm/dl Albumin/Globulin Ratio 0.6 L (0.9-2) TSH 1.190 (0.300-4.500) uIu/ml Urine Color Urine Appearance (Clear) Urine pH (4.5-7.5) Ur Specific [place] (1.000-1.030) Urine Protein (Negative) Urine Glucose (UA) (Negative) Urine Ketones (Negative) Urine Blood (Negative) Urine Nitrite (Negative) Urine Bilirubin (Negative) Urine Urobilinogen (Negative) Ur Leukocyte Esterase (Negative) Urine WBC (Auto) (0-5) /hpf Urine RBC (Auto) (0-4) /hpf U Hyaline Cast (Auto) (0-5) /lpf U Epithel Cells (Auto) (0-5) /lpf Urine Bacteria (Auto) (Negative) COVID-19 Eval Order Covid19 Done at [facility] COVID-19 PCR (Negative) Hepatitis C Ab Screen (Neg) 06/23/20 06/23/20 06/24/20 Range/Units 16:48 18:29 01:07 WBC (4.8-10.8) K/uL RBC (4.2-5.4) M/uL Hgb (12.0-16.0) g/dL Hct (37-47) % MCV (80-100) fL MCH (25-34) pg MCHC (32-36) g/dL RDW Std Deviation (36.4-46.3) fL RDW Coeff of Shant (11.5-14.5) % Plt Count (130-400) K/uL MPV (7.4-10.4) fL Immature Gran % (Auto) % Neut % (Auto) % Lymph % (Auto) % [place] % (Auto) % Eos % (Auto) % Baso % (Auto) % Neut # (Auto) (1.4-6.5) K/uL Lymph # (Auto) (1.2-3.4) K/uL [place] # (Auto) (0.11-0.59) K/uL Eos # (Auto) (0-0.5) K/uL Baso # (Auto) (0-0.2) K/uL Immature Gran # (Auto) (0.00-0.02) K/uL Sodium (136-145) mmol/L Potassium (3.5-5.1) mmol/L Chloride (98-107) mmol/L Carbon Dioxide (21-32) mmol/L Anion Gap (3-11) BUN (7-18) mg/dl Creatinine (0.6-1.2) mg/dl Est Cr Clr Drug Dosing ml/min Est GFR ( Amer) Est GFR (Non-Af Amer) BUN/Creatinine Ratio (10-20) Glucose (70-99) mg/dl POC Glucose 168 H (70-99) mg/dl Estimat Average Glucose mg/dl Hemoglobin A1c (4.5-5.6) % Calcium (8.5-10.1) mg/dl Magnesium (1.8-2.4) mg/dl Total Bilirubin (0.2-1) mg/dl AST (15-37) U/L ALT (12-78) U/L Alkaline Phosphatase (45-117) U/L Total Protein (6.4-8.2) gm/dl Albumin (3.4-5.0) gm/dl Globulin (2.5-4.0) gm/dl Albumin/Globulin Ratio (0.9-2) TSH (0.300-4.500) uIu/ml Urine Color Yellow Urine Appearance Clear (Clear) Urine pH 5.5 (4.5-7.5) Ur Specific [place] 1.012 (1.000-1.030) Urine Protein Negative (Negative) Urine Glucose (UA) Negative (Negative) Urine Ketones Negative (Negative) Urine Blood Negative (Negative) Urine Nitrite Negative (Negative) Urine Bilirubin Negative (Negative) Urine Urobilinogen Negative (Negative) Ur Leukocyte Esterase Trace H (Negative) Urine WBC (Auto) 1-5 (0-5) /hpf Urine RBC (Auto) 0-4 (0-4) /hpf U Hyaline Cast (Auto) 1-5 (0-5) /lpf U Epithel Cells (Auto) >30 H (0-5) /lpf Urine Bacteria (Auto) Negative (Negative) COVID-19 Eval Order COVID-19 PCR NEGATIVE (Negative) Hepatitis C Ab Screen (Neg) 06/24/20 06/24/20 06/24/20 Range/Units 07:41 07:41 07:47 WBC 6.74 (4.8-10.8) K/uL RBC 3.91 L (4.2-5.4) M/uL Hgb 11.6 L (12.0-16.0) g/dL Hct 37.8 (37-47) % MCV 96.7 (80-100) fL MCH 29.7 (25-34) pg MCHC 30.7 L (32-36) g/dL RDW Std Deviation 49.2 H (36.4-46.3) fL RDW Coeff of Shant 13.8 (11.5-14.5) % Plt Count 213 (130-400) K/uL MPV 9.4 (7.4-10.4) fL Immature Gran % (Auto) 0.1 % Neut % (Auto) 56.9 % Lymph % (Auto) 29.4 % [place] % (Auto) 11.7 % Eos % (Auto) 1.5 % Baso % (Auto) 0.4 % Neut # (Auto) 3.83 (1.4-6.5) K/uL Lymph # (Auto) 1.98 (1.2-3.4) K/uL [place] # (Auto) 0.79 H (0.11-0.59) K/uL Eos # (Auto) 0.10 (0-0.5) K/uL Baso # (Auto) 0.03 (0-0.2) K/uL Immature Gran # (Auto) 0.01 (0.00-0.02) K/uL Sodium (136-145) mmol/L Potassium (3.5-5.1) mmol/L Chloride (98-107) mmol/L Carbon Dioxide (21-32) mmol/L Anion Gap (3-11) BUN (7-18) mg/dl Creatinine (0.6-1.2) mg/dl Est Cr Clr Drug Dosing ml/min Est GFR ( Amer) Est GFR (Non-Af Amer) BUN/Creatinine Ratio (10-20) Glucose (70-99) mg/dl POC Glucose (70-99) mg/dl Estimat Average Glucose 134 mg/dl Hemoglobin A1c 6.3 H (4.5-5.6) % Calcium (8.5-10.1) mg/dl Magnesium (1.8-2.4) mg/dl Total Bilirubin (0.2-1) mg/dl AST (15-37) U/L ALT (12-78) U/L Alkaline Phosphatase (45-117) U/L Total Protein (6.4-8.2) gm/dl Albumin (3.4-5.0) gm/dl Globulin (2.5-4.0) gm/dl Albumin/Globulin Ratio (0.9-2) TSH (0.300-4.500) uIu/ml Urine Color Urine Appearance (Clear) Urine pH (4.5-7.5) Ur Specific [place] (1.000-1.030) Urine Protein (Negative) Urine Glucose (UA) (Negative) Urine Ketones (Negative) Urine Blood (Negative) Urine Nitrite (Negative) Urine Bilirubin (Negative) Urine Urobilinogen (Negative) Ur Leukocyte Esterase (Negative) Urine WBC (Auto) (0-5) /hpf Urine RBC (Auto) (0-4) /hpf U Hyaline Cast (Auto) (0-5) /lpf U Epithel Cells (Auto) (0-5) /lpf Urine Bacteria (Auto) (Negative) COVID-19 Eval Order COVID-19 PCR (Negative) Hepatitis C Ab Screen Neg (Neg) 06/24/20 06/24/20 06/24/20 Range/Units 07:47 11:35 16:39 WBC (4.8-10.8) K/uL RBC (4.2-5.4) M/uL Hgb (12.0-16.0) g/dL Hct (37-47) % MCV (80-100) fL MCH (25-34) pg MCHC (32-36) g/dL RDW Std Deviation (36.4-46.3) fL RDW Coeff of Shant (11.5-14.5) % Plt Count (130-400) K/uL MPV (7.4-10.4) fL Immature Gran % (Auto) % Neut % (Auto) % Lymph % (Auto) % [place] % (Auto) % Eos % (Auto) % Baso % (Auto) % Neut # (Auto) (1.4-6.5) K/uL Lymph # (Auto) (1.2-3.4) K/uL [place] # (Auto) (0.11-0.59) K/uL Eos # (Auto) (0-0.5) K/uL Baso # (Auto) (0-0.2) K/uL Immature Gran # (Auto) (0.00-0.02) K/uL Sodium 138 (136-145) mmol/L Potassium 4.4 (3.5-5.1) mmol/L Chloride 103 (98-107) mmol/L Carbon Dioxide 31 (21-32) mmol/L Anion Gap 4.0 (3-11) BUN 18 (7-18) mg/dl Creatinine 0.73 (0.6-1.2) mg/dl Est Cr Clr Drug Dosing 98.3 ml/min Est GFR ( Amer) 98.8 Est GFR (Non-Af Amer) 85.2 BUN/Creatinine Ratio 24.9 H (10-20) Glucose 116 H (70-99) mg/dl POC Glucose 127 H 143 H (70-99) mg/dl Estimat Average Glucose mg/dl Hemoglobin A1c (4.5-5.6) % Calcium 9.3 (8.5-10.1) mg/dl Magnesium (1.8-2.4) mg/dl Total Bilirubin (0.2-1) mg/dl AST (15-37) U/L ALT (12-78) U/L Alkaline Phosphatase (45-117) U/L Total Protein (6.4-8.2) gm/dl Albumin (3.4-5.0) gm/dl Globulin (2.5-4.0) gm/dl Albumin/Globulin Ratio (0.9-2) TSH (0.300-4.500) uIu/ml Urine Color Urine Appearance (Clear) Urine pH (4.5-7.5) Ur Specific [place] (1.000-1.030) Urine Protein (Negative) Urine Glucose (UA) (Negative) Urine Ketones (Negative) Urine Blood (Negative) Urine Nitrite (Negative) Urine Bilirubin (Negative) Urine Urobilinogen (Negative) Ur Leukocyte Esterase (Negative) Urine WBC (Auto) (0-5) /hpf Urine RBC (Auto) (0-4) /hpf U Hyaline Cast (Auto) (0-5) /lpf U Epithel Cells (Auto) (0-5) /lpf Urine Bacteria (Auto) (Negative) COVID-19 Eval Order COVID-19 PCR (Negative) Hepatitis C Ab Screen (Neg) Imaging Data Radiologist's Impression: KUB CLINICAL HISTORY: Left upper quadrant abdominal pain. FINDINGS: 3 AP, portable, supine abdominal radiographs are correlated with abdominal CT dated 02/28/2020. The examination is degraded by large body habitus. Cholecystectomy clips are seen in the right upper quadrant. There is a nonobstructed abdominal bowel gas pattern. No evidence of intraperitoneal free air is seen on these supine images. There are no abnormal abdominal calcifications. The liver appears enlarged. Fusion hardware is seen in the lower lumbar spine. IMPRESSION: Nonobstructed abdominal bowel gas pattern. Electronically signed by: Dario Craven M.D. 06/23/2020 6:24 PM Dictated: 06/23/201822Transcribed: 06/23/201822 SINGLE VIEW CHEST CLINICAL HISTORY: Generalized weakness. FINDINGS: An AP, portable, upright chest radiograph is compared to study dated 02/29/2020. The examination is degraded by portable technique and apical lordotic positioning. The heart is enlarged. The pulmonary vasculature is noncongested. There is bibasilar atelectasis. The lungs and pleural spaces are otherwise clear. No pneumothorax is seen. The skeletal structures are osteopenic. The bony thorax is grossly intact. A left shoulder arthroplasty is in place. Surgical anchors are present in the right humeral head. IMPRESSION: Cardiomegaly with no active disease in the chest. ACT 112: Negative or not required by law. Electronically signed by: Dario Craven M.D. 06/23/2020 6:34 PM Dictated: 06/23/201829Transcribed: 06/23/201829 ECG Data Attestation: I personally reviewed and interpreted this ECG as follows: Indication: + weakness Rate (beats per minute): 60 Rhythm: + normal sinus ECG Intervals/blocks: + Normal QT-c ECG [place]: + Normal ECG ST segments: + Normal ST segments and + Nonspecific ST abnormalities ECG Findings: no PACs and no PVCs Blood Pressure Blood Pressure Findings: Normal blood pressure Blood Pressure Disposition: did not require urgent referral MDM Narrative This pt was evaluated and appeared to be in no distress. PE reveals an obese and severely deconditioned woman with minimal stage 2 wounds along the gluteal fold. RLE is weak, 2+/5 strength, largely unable to lift against gravity. This is chronic per pt since February. Pt's lab work is reassuring. UA is negative. CXR and KUB are negative. Pt's case was d/w the [facility] hospitalist service who will evaluate for further management as pt desires placement. Impression & Plan Severe muscle deconditioning, Morbid obesity with BMI of 50.0-59.9, adult, Spinal stenosis, Right leg weakness, Unable to care for self Discharge Plan Visit Data Chief Complaint: Skin Problem Stated Complaint: PRESSURE ULCERS BUTTOCKS ED Provider: Lili Morton Discharge Problem: Severe muscle deconditioning, Morbid obesity with BMI of 50.0-59.9, adult, Spinal stenosis, Right leg weakness, Unable to care for self Patient Disposition: Admitted As Inpatient Discharge Instructions Interventions: ED Discharge Assessment Last Done: 06/23/20 23:44 Discharge Problem: Spinal stenosis Qualifiers: Spinal region: lumbosacral Qualified Code(s): M48.07 - Spinal stenosis, lumbosacral region
[2020-06-24] MEDS ORDERED: GLUCOSE 10 TABS/TUBE PO PRN (00:26)
[2020-06-24] MEDS ORDERED: GLUCAGON FOR INJ 1 MG VIAL SQ PRN (00:26)
[2020-06-24] MEDS ORDERED: DEXTROSE 50% 50 ML SYRINGE IV PRN (00:26)
[2020-06-24] MEDS ORDERED: GLUCOSE 40% GEL 15 GM TUBE PO PRN (00:26)
[2020-06-24] MEDS ORDERED: CARBOHYDRATES FOR HYPOGLYCEMIA PO PRN (00:26)
[2020-06-24] MEDS: traMADol HCL 50 MG TABLET PO PRN ×3 (01:12→22:43)
[2020-06-24] MEDS: DOXYCYCLINE HYCLATE 100 MG CAP PO SCH ×2 (01:13→09:25)
[2020-06-24] MEDS: DULoxetine HCL 30 MG CAP PO SCH ×3 (01:13→21:21)
[2020-06-24] MEDS: INSULIN GLARGINE SOLOSTAR 100 UNITS/ML 3 ML PEN SC SCH ×3 (01:13→21:07)
[2020-06-24 09:14] LABS: Estimated Average Glucose 134 mg/dl; Hemoglobin A1C 6.3 % (4.5-5.6)
[2020-06-24] MEDS: INSULIN ASPART 100 UNITS/ML 3 ML PEN SC SCH ×4 (09:23→21:07)
[2020-06-24] MEDS: FLUTICASONE/VILANTEROL 100/25MCG 14 PUFFS/INHALER INH SCH (09:24)
[2020-06-24] MEDS: PANTOprazole 40 MG TAB PO SCH ×2 (09:25→21:21)
[2020-06-24] MEDS: GABAPENTIN 300 MG CAP PO SCH ×2 (09:25→21:22)
[2020-06-24] MEDS: ROSUVASTATIN CALCIUM 10 MG TAB PO SCH (09:25)
[2020-06-24] MEDS: OXYBUTYNIN CHLORIDE XL 5 MG TABCR PO SCH (09:26)
[2020-06-24] MEDS: lisinopril 5 MG TAB PO SCH (09:26)
[2020-06-24] MEDS: FUROSEMIDE 40 MG TAB PO SCH (09:27)
--- NOTE | 2020-06-24 11:35 | Electrocardiogram Report ---
Test Reason : Blood Pressure : / mmHG Vent. Rate : 060 BPM Atrial Rate : 060 BPM P-R Int : 166 ms QRS Dur : 084 ms QT Int : 450 ms P-R-T Axes : 070 022 018 degrees QTc Int : 450 ms Normal sinus rhythm Low voltage QRS Borderline ECG When compared with ECG of 29-FEB-2020 11:59, No significant change was found Confirmed by Tomi Jain ([id number]) on 06/24/2020 11:35:18 AM Referred By: REFERRED SELF Confirmed By:Tomi Jain
[2020-06-24 11:58] LABS: BUN Creatinine Ratio 24.9 (10-20); Calcium 9.3 mg/dl (8.5-10.1); Creatinine Clr Calc Pharmacy 98.3 ml/min; Est GFR (African American) 98.8; Est GFR (Non-African American) 85.2; Potassium 4.4 mmol/L (3.5-5.1)
[2020-06-24 12:02] LABS: Basophils # (auto) 0.03 K/uL (0-0.2); Basophils % (auto) 0.4 %; Eosinophils % (auto) 1.5 %; Hematocrit (blood only) 37.8 % (37-47); Hemoglobin 11.6 g/dL (12.0-16.0); Immature Granulocytes # (auto) 0.01 K/uL (0.00-0.02); Immature Granulocytes % (auto) 0.1 %; Lymphocytes # (auto) 1.98 K/uL (1.2-3.4); Lymphocytes % (auto) 29.4 %; Mean Corpuscular Hemoglobin 29.7 pg (25-34); Mean Corpuscular Hgb Conc 30.7 g/dL (32-36); Mean Corpuscular Volume 96.7 fL (80-100); Mean Platelet Volume 9.4 fL (7.4-10.4); Monocytes # (auto) 0.79 K/uL (0.11-0.59); Monocytes % (auto) 11.7 %; Neutrophils # (auto) 3.83 K/uL (1.4-6.5); Neutrophils % (auto) 56.9 %; Platelet Count 213 K/uL (130-400); RDW Coefficient of Variation 13.8 % (11.5-14.5); RDW Standard Deviation 49.2 fL (36.4-46.3); Red Blood Count 3.91 M/uL (4.2-5.4); White Blood Count 6.74 K/uL (4.8-10.8)
[2020-06-24] MEDS: CYCLOBENZAPRINE HCL 5 MG TAB PO PRN (12:48)
--- NOTE | 2020-06-24 12:55 | Hospitalist Progress Note ---
Date of Service June 24, 2020 Assessment & Plan (1) Ambulatory dysfunction: Antonieta Manning is a 69-year-old female with a past medical history of diabetes, fibromyalgia, COPD, and severe spinal stenosis status post surgical decompression who presents with worsening weakness and ambulatory dysfunction and associated pressure ulcers 2 weeks after discharge home from rehab. Bilateral lower extremity weakness - 2/2 severe spinal stenosis status post cervical decompression on 03/05/2020 - presented for severe deconditioning and unsafe home environment - 1 recent fall on 06/20 due to difficulty ambulating without assistance, unsafe to care for herself at home - severely impaired strength and sensation in bilateral LEs, cannot ambulate without assistance - PT/OT consulted, case management consulted for placement suspect patient will need SNF level of care Pressure ulcerations, buttock near gluteal cleft No overlying cellulitis Patient turning, skin care, pressure ulcer precautions Hypertension Continue lisinopril 5 mg p.o. 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 3 times daily as needed Bacterial sinusitis, resolved - Diagnosed as outpatient, started on Doxycycline several days ago and no current symptoms - Covid negative - d/c'd Doxycycline today DVT prophylaxis: SCDs Diet: Diabetic Disposition: Medical surgical, pending placement in acute rehab CODE STATUS: DNR/DNI (2) Foot drop, bilateral: (3) HTN (hypertension): (4) Hyperlipidemia: (5) Chronic radicular lumbar pain: (6) Edema: (7) COPD (chronic obstructive pulmonary disease): (8) GERD (gastroesophageal reflux disease): (9) Lumbar spinal stenosis: (10) Diabetes mellitus: (11) Asthma: (12) Fibromyalgia: Admission and Anticipated Discharge Date Admission Date: June 23, 2020 Supervising Physician Co-Signing Physician Notes I personally examined the patient and verified all segura points of history and exam, discussed case, and agree with decision making with Dr Delcid. ongoing leg weakness - not worse just when she went home she wanst' able to care for herself/clean herself etc - started developing ulcers and having falls. feels unsafe by herself and definitely needs more rehab vitals noted nad heent nc at mmm breathing unlabored no accessory muscles good effort ext ~2/5 strength distal b/l LE weakness/ambulatory dysfunction/falls/spinal stenosis - not safe at home. PT/OT, work on rehab placement pressure ulcers - wound care otherwise as above Subjective NAEO. Patient confirms previously obtained history on H&P - mentions chronic decreased strength and sensation in BLEs leading to a fall several days ago and overall inability to ambulate on her own at home. Reports that she had foot drop and decreased strength in her feet before her spine surgery in 02/2020, but reports that her surgeon said several weeks ago that she needs much more physical therapy and rehabilitation to improve. Denies fever/chills, chest pain/palpitations, shortness of breath, cough, N/V, abdominal pain. Review of Systems Review of Systems: Pertinent positives and negatives mentioned in HPI Physical Exam Constitutional: WD/WN, vitals as above + obese Respiratory: normal respiratory effort, lungs clear to auscultation Cardiovascular: RRR, no murmur, no edema Gastrointestinal (Abdomen): normal bowel sounds, soft, nontender, no hepatosplenomegaly Neurologic: 2/5 strength in bilateral dorsiflexors and plantar flexors. 3/5 strength on knee extensors/flexors. 3/5 strength of hip flexors/extensors. Moderately impaired sensation in feet bilaterally. Genitourinary: goodwin in place, draining clear yellow urine Results & Data Results & Data ([facility]) Vital Signs (Past 12 Hours) Vital Signs Temp Pulse Resp BP Pulse Ox Pulse Ox 06/24/20 11:30 92 06/24/20 07:20 36.6 C 64 20 118/70 97 06/24/20 04:40 36.9 C 69 20 116/69 94 Resident Activity Tracking Resident Involvement: Resident Care Provided Care Provided: Adult Hospital Medicine (1) Lumbar spinal stenosis Neurogenic claudication status: unspecified Qualified Code(s): M48.061 - Spinal stenosis, lumbar region without neurogenic claudication
--- NOTE | 2020-06-24 18:58 | Billing Data ---
Date of Service June 24, 2020 Coding Level of Care Code 25746 Subseq Hosp Care Lvl 3
[2020-06-24] MEDS: PRAMIPEXOLE DIHYDROCHLO 0.5 MG TAB PO SCH (21:22)
[2020-06-24] MEDS: MONTELUKAST SODIUM 10 MG TABLET PO SCH (21:22)
[2020-06-25 08:10] LABS: Basophils # (auto) 0.02 K/uL (0-0.2); Basophils % (auto) 0.3 %; Eosinophils # (auto) 0.13 K/uL (0-0.5); Eosinophils % (auto) 1.7 %; Hematocrit (blood only) 37.2 % (37-47); Hemoglobin 11.5 g/dL (12.0-16.0); Immature Granulocytes # (auto) 0.02 K/uL (0.00-0.02); Immature Granulocytes % (auto) 0.3 %; Lymphocytes % (auto) 31.9 %; Mean Corpuscular Hemoglobin 29.8 pg (25-34); Mean Corpuscular Hgb Conc 30.9 g/dL (32-36); Mean Corpuscular Volume 96.4 fL (80-100); Mean Platelet Volume 9.2 fL (7.4-10.4); Monocytes # (auto) 0.81 K/uL (0.11-0.59); Monocytes % (auto) 10.8 %; Neutrophils # (auto) 4.15 K/uL (1.4-6.5); Platelet Count 222 K/uL (130-400); RDW Coefficient of Variation 14.1 % (11.5-14.5); RDW Standard Deviation 48.8 fL (36.4-46.3); Red Blood Count 3.86 M/uL (4.2-5.4); White Blood Count 7.53 K/uL (4.8-10.8)
[2020-06-25 08:34] LABS: BUN Creatinine Ratio 23.3 (10-20); Calcium 9.4 mg/dl (8.5-10.1); Creatinine Clr Calc Pharmacy 78.9 ml/min; Est GFR (African American) 75.7; Est GFR (Non-African American) 65.3; Potassium 4.1 mmol/L (3.5-5.1)
[2020-06-25] MEDS: ROSUVASTATIN CALCIUM 10 MG TAB PO SCH (08:56)
[2020-06-25] MEDS: FUROSEMIDE 40 MG TAB PO SCH (08:56)
[2020-06-25] MEDS: lisinopril 5 MG TAB PO SCH (08:56)
[2020-06-25] MEDS: OXYBUTYNIN CHLORIDE XL 5 MG TABCR PO SCH (08:57)
[2020-06-25] MEDS: GABAPENTIN 300 MG CAP PO SCH ×2 (08:57→21:29)
[2020-06-25] MEDS: INSULIN GLARGINE SOLOSTAR 100 UNITS/ML 3 ML PEN SC SCH ×2 (08:58→21:34)
[2020-06-25] MEDS: PANTOprazole 40 MG TAB PO SCH ×2 (08:58→21:29)
[2020-06-25] MEDS: INSULIN ASPART 100 UNITS/ML 3 ML PEN SC SCH ×4 (08:59→21:35)
[2020-06-25] MEDS: FLUTICASONE/VILANTEROL 100/25MCG 14 PUFFS/INHALER INH SCH (09:01)
[2020-06-25] MEDS: DULoxetine HCL 30 MG CAP PO SCH ×2 (09:29→21:29)
--- NOTE | 2020-06-25 14:36 | Hospitalist Progress Note ---
Date of Service June 25, 2020 Assessment & Plan (1) Ambulatory dysfunction: Antonieta Manning is a 69-year-old female with a past medical history of diabetes, fibromyalgia, COPD, and severe spinal stenosis status post surgical decompression who presents with worsening weakness and ambulatory dysfunction and associated pressure ulcers 2 weeks after discharge home from rehab. Bilateral lower extremity weakness - 2/2 severe spinal stenosis status post cervical decompression on 03/05/2020 - presented for severe deconditioning and unsafe home environment - 1 recent fall on 06/20 due to difficulty ambulating without assistance, unsafe to care for herself at home - severely impaired strength and sensation in bilateral LEs, cannot ambulate without assistance - PT/OT consulted, case management consulted for placement - pending Pressure ulcerations, buttock near gluteal cleft No overlying cellulitis Patient turning, skin care, pressure ulcer precautions Hypertension Continue lisinopril 5 mg p.o. 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 3 times daily as needed Bacterial sinusitis, resolved - Diagnosed as outpatient, started on Doxycycline several days ago and no current symptoms - Covid negative - d/c'd Doxycycline on 06/24 DVT prophylaxis: SCDs Diet: Diabetic Disposition: Med/surg, pending placement at [facility] for rehab CODE STATUS: DNR/DNI (2) Foot drop, bilateral: (3) HTN (hypertension): (4) Hyperlipidemia: (5) Chronic radicular lumbar pain: (6) Edema: (7) COPD (chronic obstructive pulmonary disease): (8) GERD (gastroesophageal reflux disease): (9) Lumbar spinal stenosis: (10) Diabetes mellitus: (11) Asthma: (12) Fibromyalgia: Admission and Anticipated Discharge Date Admission Date: June 24, 2020 Supervising Physician Co-Signing Physician Notes I personally examined the patient and verified all segura points of history and exam, discussed case, and agree with decision making with Dr Delcid. seen w PT, takes considerable effort and assist just to get out of bed w leg braces and walker then pivot 90 degrees to sit in chair vitals noted nad heent nc at mmm breathing unlabored no accessory muscles good effort leg weakness as above weakness/ambulatory dysfunction/falls/spinal stenosis - not safe at home. PT/OT, work on rehab placement, discussed again - she is amenable just worried about her living situation once she does leave a facility pressure ulcers - wound care ongoing, increased mobility will help otherwise as above Subjective NAEO. Witnessed patient working with PT this morning - she had great difficulty standing up with assistance and pivoting to chair. Denies fever/chills, chest pain/palpitations, shortness of breath, cough, N/V, abdominal pain. Review of Systems Review of Systems: Pertinent positives and negatives mentioned in HPI Physical Exam Constitutional: WD/WN, vitals as above + obese Respiratory: normal respiratory effort, lungs clear to auscultation Cardiovascular: RRR, no murmur, no edema Gastrointestinal (Abdomen): normal bowel sounds, soft, nontender, no hepatosplenomegaly Genitourinary: goodwin in place, draining clear yellow urine Results & Data Results & Data ([facility]) Vital Signs (Past 12 Hours) Vital Signs Temp Pulse Resp BP Pulse Ox 06/25/20 07:51 36.8 C 77 16 118/72 93 Resident Activity Tracking Resident Involvement: Resident Care Provided Care Provided: Adult Hospital Medicine (1) Lumbar spinal stenosis Neurogenic claudication status: unspecified Qualified Code(s): M48.061 - Spinal stenosis, lumbar region without neurogenic claudication
[2020-06-25] MEDS: ACETAMINOPHEN 325 MG TAB PO PRN (16:15)
[2020-06-25] MEDS ORDERED: POLYETHYLENE (MIRALAX) 17 GM PACK PO ONE (16:52)
--- NOTE | 2020-06-25 19:54 | Billing Data ---
Date of Service June 25, 2020 Coding Level of Care Code 69850 Subseq Hosp Care Lvl 2
[2020-06-25] MEDS: PRAMIPEXOLE DIHYDROCHLO 0.5 MG TAB PO SCH (21:29)
[2020-06-25] MEDS: MONTELUKAST SODIUM 10 MG TABLET PO SCH (21:29)
[2020-06-25] MEDS: traMADol HCL 50 MG TABLET PO PRN (22:01)
--- NOTE | 2020-06-26 05:49 | Billing Data ---
Date of Service June 26, 2020 Coding Level of Care Code 46696 Initial Inpt Care Lvl 3
[2020-06-26] MEDS ORDERED: POLYETHYLENE (MIRALAX) 17 GM PACK PO ONE (08:53)
[2020-06-26 08:55] LABS: Basophils # (auto) 0.02 K/uL (0-0.2); Basophils % (auto) 0.3 %; Eosinophils # (auto) 0.19 K/uL (0-0.5); Eosinophils % (auto) 2.6 %; Hematocrit (blood only) 38.4 % (37-47); Hemoglobin 11.8 g/dL (12.0-16.0); Immature Granulocytes # (auto) 0.01 K/uL (0.00-0.02); Immature Granulocytes % (auto) 0.1 %; Lymphocytes # (auto) 2.19 K/uL (1.2-3.4); Lymphocytes % (auto) 29.9 %; Mean Corpuscular Hemoglobin 29.7 pg (25-34); Mean Corpuscular Hgb Conc 30.7 g/dL (32-36); Mean Corpuscular Volume 96.7 fL (80-100); Mean Platelet Volume 9.1 fL (7.4-10.4); Monocytes # (auto) 0.79 K/uL (0.11-0.59); Monocytes % (auto) 10.8 %; Neutrophils # (auto) 4.12 K/uL (1.4-6.5); Neutrophils % (auto) 56.3 %; Platelet Count 211 K/uL (130-400); RDW Standard Deviation 49.4 fL (36.4-46.3); Red Blood Count 3.97 M/uL (4.2-5.4); White Blood Count 7.32 K/uL (4.8-10.8)
[2020-06-26 09:22] LABS: BUN Creatinine Ratio 34.2 (10-20); Calcium 9.6 mg/dl (8.5-10.1); Creatinine Clr Calc Pharmacy 86.5 ml/min; Est GFR (African American) 84.6; Potassium 4.2 mmol/L (3.5-5.1)
[2020-06-26] MEDS: INSULIN ASPART 100 UNITS/ML 3 ML PEN SC SCH ×4 (09:32→20:46)
[2020-06-26] MEDS: INSULIN GLARGINE SOLOSTAR 100 UNITS/ML 3 ML PEN SC SCH ×2 (09:33→21:54)
[2020-06-26] MEDS: PANTOprazole 40 MG TAB PO SCH ×2 (09:34→22:03)
[2020-06-26] MEDS: ROSUVASTATIN CALCIUM 10 MG TAB PO SCH (09:34)
[2020-06-26] MEDS: OXYBUTYNIN CHLORIDE XL 5 MG TABCR PO SCH (09:34)
[2020-06-26] MEDS: GABAPENTIN 300 MG CAP PO SCH ×2 (09:34→22:03)
[2020-06-26] MEDS: DULoxetine HCL 30 MG CAP PO SCH ×2 (09:34→22:03)
[2020-06-26] MEDS: FLUTICASONE/VILANTEROL 100/25MCG 14 PUFFS/INHALER INH SCH (09:35)
--- NOTE | 2020-06-26 12:35 | Hospitalist Progress Note ---
Date of Service June 26, 2020 Assessment & Plan (1) Ambulatory dysfunction: Antonieta Manning is a 69-year-old female with a past medical history of diabetes, fibromyalgia, COPD, and severe spinal stenosis status post surgical decompression who presents with worsening weakness and ambulatory dysfunction and associated pressure ulcers 2 weeks after discharge home from rehab. Bilateral lower extremity weakness - 2/2 severe spinal stenosis status post cervical decompression on 03/05/2020 - presented for severe deconditioning and unsafe home environment - 1 recent fall on 06/20 due to difficulty ambulating without assistance, unsafe to care for herself at home - severely impaired strength and sensation in bilateral LEs, cannot ambulate without assistance - PT/OT consulted, case management consulted for placement - pending Pressure ulcerations, buttock near gluteal cleft No overlying cellulitis Patient turning, skin care, pressure ulcer precautions Constipation - no bowel movement for several days as of 06/26 and mild suprapubic TTP - ordered Miralax 34mg today - continue to monitor Hypertension Continue lisinopril 5 mg p.o. 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 3 times daily as needed Bacterial sinusitis, resolved - Diagnosed as outpatient, started on Doxycycline several days ago and no current symptoms - Covid negative - d/c'd Doxycycline on 06/24 DVT prophylaxis: SCDs Diet: Diabetic Disposition: Med/surg, pending placement at [facility] for rehab CODE STATUS: DNR/DNI (2) Foot drop, bilateral: (3) HTN (hypertension): (4) Hyperlipidemia: (5) Chronic radicular lumbar pain: (6) Edema: (7) COPD (chronic obstructive pulmonary disease): (8) GERD (gastroesophageal reflux disease): (9) Lumbar spinal stenosis: (10) Diabetes mellitus: (11) Asthma: (12) Fibromyalgia: Admission and Anticipated Discharge Date Admission Date: June 24, 2020 Supervising Physician Co-Signing Physician Notes I personally examined the patient and verified all segura points of history and exam, discussed case, and agree with decision making with Dr Delcid. discouraged by situation for placement. talked w pt late in the day and tried to encourage her to not give up. vitals noted nad heent nc at mmm breathing unlabored no accessory muscles good effort weakness/ambulatory dysfunction/falls/spinal stenosis - not safe at home. PT/OT, work on rehab placement, encouraged her to not give up. after discussions she seemed more willing to start to consider options - just said she was so discouraged earlier she wanted to give up. pressure ulcers - continue wound care, increased mobility will help otherwise as above Subjective NAEO. Patient reports constipation this morning and associated lower abdominal pain. Denies fever/chills, chest pain/palpitations, shortness of breath, cough, N/V, abdominal pain. Review of Systems Review of Systems: Pertinent positives and negatives mentioned in HPI Physical Exam Constitutional: WD/WN, vitals as above + obese Respiratory: normal respiratory effort, lungs clear to auscultation Cardiovascular: RRR, no murmur, no edema Gastrointestinal (Abdomen): Inspection/Auscultation: abdomen normal to inspection Percussion/Palpation: + abdomen tender (mild suprapubic tenderness) and abdomen soft Results & Data Results & Data ([facility]) Vital Signs (Past 12 Hours) Vital Signs Temp Pulse Resp BP BP Pulse Ox 06/26/20 08:00 110/54 L 06/26/20 07:42 36.9 C 66 16 87/41 L 93 Resident Activity Tracking Resident Involvement: Resident Care Provided Care Provided: Adult Hospital Medicine (1) Lumbar spinal stenosis Neurogenic claudication status: unspecified Qualified Code(s): M48.061 - Spinal stenosis, lumbar region without neurogenic claudication
[2020-06-26] MEDS: ACETAMINOPHEN 325 MG TAB PO PRN (14:22)
--- NOTE | 2020-06-26 20:08 | Billing Data ---
Date of Service June 26, 2020 Coding Level of Care Code 34014 Subseq Hosp Care Lvl 1
[2020-06-26] MEDS: MONTELUKAST SODIUM 10 MG TABLET PO SCH (22:03)
[2020-06-26] MEDS: PRAMIPEXOLE DIHYDROCHLO 0.5 MG TAB PO SCH (22:03)
[2020-06-26] MEDS: traMADol HCL 50 MG TABLET PO PRN (22:31)
[2020-06-26] MEDS: CYCLOBENZAPRINE HCL 5 MG TAB PO PRN (23:44)
[2020-06-27 07:18] LABS: Basophils # (auto) 0.02 K/uL (0-0.2); Basophils % (auto) 0.2 %; Eosinophils # (auto) 0.23 K/uL (0-0.5); Eosinophils % (auto) 2.8 %; Hematocrit (blood only) 38.1 % (37-47); Hemoglobin 11.9 g/dL (12.0-16.0); Immature Granulocytes # (auto) 0.02 K/uL (0.00-0.02); Immature Granulocytes % (auto) 0.2 %; Lymphocytes # (auto) 2.13 K/uL (1.2-3.4); Lymphocytes % (auto) 25.9 %; Mean Corpuscular Hemoglobin 30.1 pg (25-34); Mean Corpuscular Hgb Conc 31.2 g/dL (32-36); Mean Corpuscular Volume 96.2 fL (80-100); Mean Platelet Volume 9.2 fL (7.4-10.4); Monocytes # (auto) 0.76 K/uL (0.11-0.59); Monocytes % (auto) 9.2 %; Neutrophils # (auto) 5.07 K/uL (1.4-6.5); Neutrophils % (auto) 61.7 %; Platelet Count 229 K/uL (130-400); RDW Coefficient of Variation 13.9 % (11.5-14.5); RDW Standard Deviation 49.3 fL (36.4-46.3); Red Blood Count 3.96 M/uL (4.2-5.4); White Blood Count 8.23 K/uL (4.8-10.8)
[2020-06-27 07:46] LABS: BUN Creatinine Ratio 33.7 (10-20); Calcium 9.3 mg/dl (8.5-10.1); Creatinine Clr Calc Pharmacy 85.4 ml/min; Est GFR (African American) 83.4; Est GFR (Non-African American) 71.9; Potassium 4.1 mmol/L (3.5-5.1)
[2020-06-27] MEDS: FLUTICASONE/VILANTEROL 100/25MCG 14 PUFFS/INHALER INH SCH (08:52)
[2020-06-27] MEDS: PANTOprazole 40 MG TAB PO SCH ×2 (08:53→21:07)
[2020-06-27] MEDS: GABAPENTIN 300 MG CAP PO SCH ×2 (08:53→21:07)
[2020-06-27] MEDS: OXYBUTYNIN CHLORIDE XL 5 MG TABCR PO SCH (08:53)
[2020-06-27] MEDS: ROSUVASTATIN CALCIUM 10 MG TAB PO SCH (08:54)
[2020-06-27] MEDS: DULoxetine HCL 30 MG CAP PO SCH ×2 (08:54→21:07)
[2020-06-27] MEDS: INSULIN GLARGINE SOLOSTAR 100 UNITS/ML 3 ML PEN SC SCH ×2 (08:56→21:11)
[2020-06-27] MEDS: INSULIN ASPART 100 UNITS/ML 3 ML PEN SC SCH ×4 (08:57→21:13)
[2020-06-27] MEDS ORDERED: POLYETHYLENE (MIRALAX) 17 GM PACK PO ONE (09:37)
--- NOTE | 2020-06-27 09:41 | Hospitalist Progress Note ---
Date of Service June 27, 2020 Assessment & Plan (1) Ambulatory dysfunction: Antonieta Manning is a 69-year-old female with a past medical history of diabetes, fibromyalgia, COPD, and severe spinal stenosis status post surgical decompression who presents with worsening weakness and ambulatory dysfunction and associated pressure ulcers 2 weeks after discharge home from rehab. Bilateral lower extremity weakness - 2/2 severe spinal stenosis status post cervical decompression on 03/05/2020 - presented for severe deconditioning and unsafe home environment - 1 recent fall on 06/20 due to difficulty ambulating without assistance, unsafe to care for herself at home - severely impaired strength and sensation in bilateral LEs, cannot ambulate without assistance - PT/OT consulted, case management consulted for placement - pending Pressure ulcerations, buttock near gluteal cleft No overlying cellulitis Patient turning, skin care, pressure ulcer precautions Constipation - no bowel movement for several days as of 06/26 and mild suprapubic TTP - no BM with Miralax 34g on 06/26 - ordered Miralax 51mg on 06/27 as no BM yet - KUB 06/27 without evidence of obstruction or stool impaction - continue to monitor Hypertension Continue lisinopril 5 mg p.o. 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 3 times daily as needed Bacterial sinusitis, resolved - Diagnosed as outpatient, started on Doxycycline several days ago and no current symptoms - Covid negative - d/c'd Doxycycline on 06/24 DVT prophylaxis: SCDs Diet: Diabetic Disposition: Med/surg, rejected for [facility] acute inpatient rehab - CM following and continuing to pursue placement options CODE STATUS: DNR/DNI (2) Foot drop, bilateral: (3) HTN (hypertension): (4) Hyperlipidemia: (5) Chronic radicular lumbar pain: (6) Edema: (7) COPD (chronic obstructive pulmonary disease): (8) GERD (gastroesophageal reflux disease): (9) Lumbar spinal stenosis: (10) Diabetes mellitus: (11) Asthma: (12) Fibromyalgia: Admission and Anticipated Discharge Date Admission Date: June 24, 2020 Supervising Physician Co-Signing Physician Notes I personally examined the patient and verified all segura points of history and exam, discussed case, and agree with decision making with Dr Delcid. d/w case management. still working on placement. pt resting when i see her. vitals noted nad heent nc at mmm breathing unlabored no accessory muscles good effort weakness/ambulatory dysfunction/falls/spinal stenosis - not safe at home. PT/OT, work on /SNFrehab placement, stable once bed available/approval obtained pressure ulcers - continue local wound care, increased mobility will help otherwise as above Subjective NAEO. Patient reports stable constipation this morning and associated mild lower abdominal pain. Denies fever/chills, chest pain/palpitations, shortness of breath, cough, N/V, abdominal pain. Review of Systems Review of Systems: Pertinent positives and negatives mentioned in HPI Physical Exam Constitutional: WD/WN, vitals as above + obese; no acute distress Respiratory: normal respiratory effort, lungs clear to auscultation Cardiovascular: RRR, no murmur, no edema Gastrointestinal (Abdomen): normal bowel sounds, soft, nontender, no hepatosplenomegaly Inspection/Auscultation: abdomen normal to inspection Percussion/Palpation: + abdomen tender (mild suprapubic tenderness) and abdomen soft Results & Data Results & Data ([facility]) Vital Signs (Past 12 Hours) Vital Signs Temp Pulse Resp BP BP Pulse Ox 06/27/20 07:34 37 C 87 18 108/70 92 06/26/20 23:46 37.2 C 79 14 120/65 97 Resident Activity Tracking Resident Involvement: Resident Care Provided Care Provided: Adult Hospital Medicine (1) Lumbar spinal stenosis Neurogenic claudication status: unspecified Qualified Code(s): M48.061 - Spinal stenosis, lumbar region without neurogenic claudication
[2020-06-27] MEDS: ACETAMINOPHEN 325 MG TAB PO PRN (12:59)
--- NOTE | 2020-06-27 13:51 | XRay Report ---
KUB HISTORY: Acute generalized abdominal pain with reported constipation constipation COMPARISON: KUB 06/23/2020 FINDINGS: Bowel gas pattern is nonobstructive. Mild fecal retention. No renal or ureteral calculi jaydon ntified. No pneumoperitoneum or pneumatosis. Posterior interbody tez and screw fusion with discectomy changes at L2-L4. No acute fracture. IMPRESSION: 1. Nonobstructive bowel gas pattern. 2. Mild fecal retention. ACT 112: Negative or not required by law. The above report was generated using voice recognition software. It may contain grammatical, syntax o r spelling errors. Electronically signed by: Sp Garner M.D. 06/27/2020 1:50 PM
[2020-06-27] MEDS: CYCLOBENZAPRINE HCL 5 MG TAB PO PRN (16:17)
--- NOTE | 2020-06-27 18:52 | Billing Data ---
Date of Service June 27, 2020 Coding Level of Care Code 00861 Subseq Hosp Care Lvl 1
[2020-06-27] MEDS: MONTELUKAST SODIUM 10 MG TABLET PO SCH (21:07)
[2020-06-27] MEDS: PRAMIPEXOLE DIHYDROCHLO 0.5 MG TAB PO SCH (21:07)
[2020-06-28 07:10] LABS: Basophils # (auto) 0.04 K/uL (0-0.2); Basophils % (auto) 0.5 %; Eosinophils # (auto) 0.25 K/uL (0-0.5); Eosinophils % (auto) 2.9 %; Hematocrit (blood only) 38.1 % (37-47); Immature Granulocytes # (auto) 0.02 K/uL (0.00-0.02); Immature Granulocytes % (auto) 0.2 %; Lymphocytes # (auto) 2.47 K/uL (1.2-3.4); Lymphocytes % (auto) 28.8 %; Mean Corpuscular Hgb Conc 31.5 g/dL (32-36); Mean Corpuscular Volume 95.3 fL (80-100); Mean Platelet Volume 9.4 fL (7.4-10.4); Monocytes # (auto) 0.79 K/uL (0.11-0.59); Monocytes % (auto) 9.2 %; Neutrophils % (auto) 58.4 %; Platelet Count 199 K/uL (130-400); RDW Coefficient of Variation 13.9 % (11.5-14.5); RDW Standard Deviation 47.9 fL (36.4-46.3); White Blood Count 8.57 K/uL (4.8-10.8)
[2020-06-28 07:37] LABS: Calcium 9.3 mg/dl (8.5-10.1); Est GFR (African American) 91.2; Est GFR (Non-African American) 78.7; Potassium 4.2 mmol/L (3.5-5.1)
[2020-06-28] MEDS: FLUTICASONE/VILANTEROL 100/25MCG 14 PUFFS/INHALER INH SCH (08:38)
[2020-06-28] MEDS: PANTOprazole 40 MG TAB PO SCH ×2 (08:39→20:57)
[2020-06-28] MEDS: OXYBUTYNIN CHLORIDE XL 5 MG TABCR PO SCH (08:39)
[2020-06-28] MEDS: ROSUVASTATIN CALCIUM 10 MG TAB PO SCH (08:39)
[2020-06-28] MEDS: GABAPENTIN 300 MG CAP PO SCH ×2 (08:40→20:58)
[2020-06-28] MEDS: DULoxetine HCL 30 MG CAP PO SCH ×2 (08:40→20:58)
[2020-06-28] MEDS: INSULIN GLARGINE SOLOSTAR 100 UNITS/ML 3 ML PEN SC SCH ×2 (08:41→21:09)
[2020-06-28] MEDS: INSULIN ASPART 100 UNITS/ML 3 ML PEN SC SCH ×4 (08:42→21:10)
--- NOTE | 2020-06-28 11:18 | Hospitalist Progress Note ---
Date of Service June 28, 2020 Assessment & Plan (1) Ambulatory dysfunction: Antonieta Manning is a 69-year-old female with a past medical history of diabetes, fibromyalgia, COPD, and severe spinal stenosis status post surgical decompression who presents with worsening weakness and ambulatory dysfunction and associated pressure ulcers 2 weeks after discharge home from rehab. Bilateral lower extremity weakness - 2/2 severe spinal stenosis status post cervical decompression on 03/05/2020 - presented for severe deconditioning and unsafe home environment - 1 recent fall on 06/20 due to difficulty ambulating without assistance, unsafe to care for herself at home - severely impaired strength and sensation in bilateral LEs, cannot ambulate without assistance - PT/OT consulted, case management consulted for placement - pending Pressure ulcerations, buttock near gluteal cleft No overlying cellulitis Patient turning, skin care, pressure ulcer precautions Constipation - no bowel movement for several days as of 06/26 and mild suprapubic TTP - No BM with Miralax 34g on 06/26 - No BM with Miralax 51mg on 06/27 - Given Miralax 85mg today (06/28)--patient did have a BM - KUB 06/27 without evidence of obstruction or stool impaction - continue to monitor Hypertension Continue lisinopril 5 mg p.o. 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 3 times daily as needed Bacterial sinusitis, resolved - Diagnosed as outpatient, started on Doxycycline several days ago and no current symptoms - Covid negative - d/c'd Doxycycline on 06/24 DVT prophylaxis: SCDs Diet: Diabetic Disposition: Med/surg, rejected for [facility] acute inpatient rehab - CM following and continuing to pursue placement options CODE STATUS: DNR/DNI (2) Foot drop, bilateral: (3) HTN (hypertension): (4) Hyperlipidemia: (5) Chronic radicular lumbar pain: (6) Edema: (7) COPD (chronic obstructive pulmonary disease): (8) GERD (gastroesophageal reflux disease): (9) Lumbar spinal stenosis: (10) Diabetes mellitus: (11) Asthma: (12) Fibromyalgia: Admission and Anticipated Discharge Date Admission Date: June 24, 2020 Supervising Physician Co-Signing Physician Notes I personally examined the patient and verified all segura points of history and exam, discussed case, and agree with decision making with Dr Estrada. constipated. vitals noted nad heent nc at mmm breathing unlabored no accessory muscles good effort weakness/ambulatory dysfunction/falls/spinal stenosis - not safe at home. needs more therapy. PT/OT, work on SNF/rehab placement, stable once bed available/approval obtained constipation - additional miralax pressure ulcers - continue local wound care, increased mobility will help otherwise as above Subjective Pt seen at bedside this AM. She reports that she feels overall well. However, she does express significant emotional distress due to the current situation she is in. Has felt that she is very uncertain of what the future holds for her and is worried about whether she will have a place to go after she is done with inpt rehab. I reassured her that case management is working on helping her find permanent housing and she does understand this and is very appreciative of how well has been working. She denies physical complaints currently. Review of Systems Constitutional: + weakness; no fever and no chills Respiratory: no cough, no chest congestion and no dyspnea Cardiovascular: no chest pain and no palpitations Gastrointestinal: no abdominal pain, no nausea and no vomiting Musculoskeletal: + muscle weakness (BLE) Physical Exam Constitutional: + morbidly obese; no acute distress and not ill appearing Respiratory: normal respiratory effort, lungs clear to auscultation Cardiovascular: RRR, no murmur, no edema Heart Sounds: normal S1 and normal S2; no gallop, no murmur and no cardiac rub Psychiatric: Orientation: alert and oriented x 3 Speech: normal rate/rhythm/volume of speech Affect: + tearful affect Results & Data Results & Data ([facility]) Vital Signs (Past 12 Hours) Vital Signs Temp Pulse Resp BP BP Pulse Ox 06/28/20 07:24 36.8 C 71 18 119/67 97 06/27/20 23:25 36.8 C 75 18 101/66 91 Resident Activity Tracking Resident Involvement: Resident Care Provided Care Provided: Adult Hospital Medicine (1) Lumbar spinal stenosis Neurogenic claudication status: unspecified Qualified Code(s): M48.061 - Spinal stenosis, lumbar region without neurogenic claudication
[2020-06-28] MEDS ORDERED: POLYETHYLENE (MIRALAX) 17 GM PACK PO ONE (12:30)
[2020-06-28] MEDS: POLYETHYLENE (MIRALAX) 17 GM PACK PO SCH ×4 (14:06→17:14)
--- NOTE | 2020-06-28 19:21 | Billing Data ---
Date of Service June 28, 2020 Coding Level of Care Code 75492 Subseq Hosp Care Lvl 2
[2020-06-28] MEDS: PRAMIPEXOLE DIHYDROCHLO 0.5 MG TAB PO SCH (20:58)
[2020-06-28] MEDS: MONTELUKAST SODIUM 10 MG TABLET PO SCH (20:58)
[2020-06-29] MEDS: FLUTICASONE/VILANTEROL 100/25MCG 14 PUFFS/INHALER INH SCH (08:46)
[2020-06-29] MEDS: ROSUVASTATIN CALCIUM 10 MG TAB PO SCH (08:47)
[2020-06-29] MEDS: DULoxetine HCL 30 MG CAP PO SCH ×2 (08:47→21:25)
[2020-06-29] MEDS: OXYBUTYNIN CHLORIDE XL 5 MG TABCR PO SCH (08:47)
[2020-06-29] MEDS: GABAPENTIN 300 MG CAP PO SCH ×2 (08:48→21:25)
[2020-06-29] MEDS: PANTOprazole 40 MG TAB PO SCH ×2 (08:48→21:25)
[2020-06-29] MEDS: INSULIN GLARGINE SOLOSTAR 100 UNITS/ML 3 ML PEN SC SCH ×2 (08:51→21:26)
[2020-06-29] MEDS: INSULIN ASPART 100 UNITS/ML 3 ML PEN SC SCH ×4 (08:51→21:25)
--- NOTE | 2020-06-29 09:22 | Hospitalist Progress Note ---
Date of Service June 29, 2020 Assessment & Plan (1) Ambulatory dysfunction: Antonieta Manning is a 69-year-old female with a past medical history of diabetes, fibromyalgia, COPD, and severe spinal stenosis status post surgical decompression who presents with worsening weakness and ambulatory dysfunction and associated pressure ulcers 2 weeks after discharge home from rehab. Bilateral lower extremity weakness - 2/2 severe spinal stenosis status post cervical decompression on 03/05/2020 - presented for severe deconditioning and unsafe home environment - 1 recent fall on 06/20 due to difficulty ambulating without assistance, unsafe to care for herself at home - severely impaired strength and sensation in bilateral LEs, cannot ambulate without assistance - PT/OT consulted, case management consulted for placement - pending Pressure ulcerations, buttock near gluteal cleft - No overlying cellulitis - Patient turning, skin care, pressure ulcer precautions Constipation - no bowel movement for several days as of 06/26 and mild suprapubic TTP - KUB 06/27 without evidence of obstruction or stool impaction - s/p large, formed BM x1 on 06/29, abdominal pain resolved - continue to monitor Hypertension - Continue lisinopril 5 mg p.o. 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 3 times daily as needed Bacterial sinusitis, resolved - Diagnosed as outpatient, started on Doxycycline several days ago and no current symptoms - Covid negative - d/c'd Doxycycline on 06/24 DVT prophylaxis: SCDs Diet: DM2 Disposition: Med/surg, rejected for [facility] acute inpatient rehab - CM following and continuing to pursue placement options CODE STATUS: DNR/DNI (2) Foot drop, bilateral: (3) HTN (hypertension): (4) Hyperlipidemia: (5) Chronic radicular lumbar pain: (6) Edema: (7) COPD (chronic obstructive pulmonary disease): (8) GERD (gastroesophageal reflux disease): (9) Lumbar spinal stenosis: (10) Diabetes mellitus: (11) Asthma: (12) Fibromyalgia: Admission and Anticipated Discharge Date Admission Date: June 24, 2020 Supervising Physician Co-Signing Physician Notes I personally examined the patient and verified all segura points of history and exa m, discussed case, and agree with decision making with Dr Delcid. (+) large BM. otherwise feeling brighter because she's up in a wheelchair and at least can move some vitals noted nad heent nc at mmm breathing unlabored no accessory muscles good effort weakness/ambulatory dysfunction/falls/spinal stenosis - not safe at home. will need more therapy. PT/OT, work on SNF/rehab placement, stable once bed available/approval obtained constipation - additional miralax helped. pressure ulcers - ongoing local wound care, increased mobility will help otherwise as above Subjective NAEO. Patient had large, formed BM last night, lower abdominal pain resolved. Reports doing well with PT yesterday and was able to sit in a chair for most of the day. Denies fever/chills, chest pain/palpitations, SOB, N/V. Review of Systems Review of Systems: Pertinent positives and negatives mentioned in HPI Physical Exam Constitutional: WD/WN, vitals as above + obese; no acute distress Respiratory: normal respiratory effort, lungs clear to auscultation Cardiovascular: RRR, no murmur, no edema Gastrointestinal (Abdomen): normal bowel sounds, soft, nontender, no hepatosplenomegaly Results & Data Results & Data ([facility]) Vital Signs (Past 12 Hours) Vital Signs Temp Pulse Resp BP BP Pulse Ox 06/29/20 07:39 36.7 C 92 H 18 109/55 L 98 06/28/20 23:00 36.7 C 67 20 106/70 95 Resident Activity Tracking Resident Involvement: Resident Care Provided Care Provided: Adult Hospital Medicine (1) Lumbar spinal stenosis Neurogenic claudication status: unspecified Qualified Code(s): M48.061 - Spinal stenosis, lumbar region without neurogenic claudication
[2020-06-29] MEDS: ACETAMINOPHEN 325 MG TAB PO PRN (11:17)
--- NOTE | 2020-06-29 19:47 | Billing Data ---
Date of Service June 29, 2020 Coding Level of Care Code 07524 Subseq Hosp Care Lvl 2
[2020-06-29] MEDS: PRAMIPEXOLE DIHYDROCHLO 0.5 MG TAB PO SCH (21:25)
[2020-06-29] MEDS: MONTELUKAST SODIUM 10 MG TABLET PO SCH (21:25)
[2020-06-29] MEDS: CYCLOBENZAPRINE HCL 5 MG TAB PO PRN (21:25)
[2020-06-29] MEDS ORDERED: LOPERAMIDE HCL 2 MG CAP PO STA (22:35)
[2020-06-30 06:18] LABS: Hematocrit (blood only) 37.4 % (37-47); Hemoglobin 11.8 g/dL (12.0-16.0); Mean Corpuscular Hemoglobin 29.9 pg (25-34); Mean Corpuscular Hgb Conc 31.6 g/dL (32-36); Mean Corpuscular Volume 94.9 fL (80-100); Mean Platelet Volume 9.3 fL (7.4-10.4); Platelet Count 207 K/uL (130-400); RDW Coefficient of Variation 14.1 % (11.5-14.5); RDW Standard Deviation 48.5 fL (36.4-46.3); Red Blood Count 3.94 M/uL (4.2-5.4); White Blood Count 8.24 K/uL (4.8-10.8)
[2020-06-30 06:47] LABS: BUN Creatinine Ratio 28.7 (10-20); Creatinine Clr Calc Pharmacy 85.4 ml/min; Est GFR (African American) 83.4; Est GFR (Non-African American) 71.9; Potassium 4.2 mmol/L (3.5-5.1)
[2020-06-30] MEDS: INSULIN ASPART 100 UNITS/ML 3 ML PEN SC SCH ×4 (08:43→20:22)
[2020-06-30] MEDS: FLUTICASONE/VILANTEROL 100/25MCG 14 PUFFS/INHALER INH SCH (08:44)
[2020-06-30] MEDS: ROSUVASTATIN CALCIUM 10 MG TAB PO SCH (08:44)
[2020-06-30] MEDS: DULoxetine HCL 30 MG CAP PO SCH (08:45)
[2020-06-30] MEDS: OXYBUTYNIN CHLORIDE XL 5 MG TABCR PO SCH (08:45)
[2020-06-30] MEDS: GABAPENTIN 300 MG CAP PO SCH ×2 (08:46→20:26)
[2020-06-30] MEDS: INSULIN GLARGINE SOLOSTAR 100 UNITS/ML 3 ML PEN SC SCH ×2 (08:46→20:23)
[2020-06-30] MEDS: PANTOprazole 40 MG TAB PO SCH ×2 (08:46→20:27)
[2020-06-30] MEDS: ACETAMINOPHEN 325 MG TAB PO PRN (16:15)
--- NOTE | 2020-06-30 16:20 | Hospitalist Progress Note ---
Date of Service June 30, 2020 Assessment & Plan (1) Ambulatory dysfunction: Antonieta Manning is a 69-year-old female with a past medical history of diabetes, fibromyalgia, COPD, and severe spinal stenosis status post surgical decompression who presents with worsening weakness and ambulatory dysfunction and associated pressure ulcers 2 weeks after discharge home from rehab. Bilateral lower extremity weakness - 2/2 severe spinal stenosis status post cervical decompression on 03/05/2020 - presented for severe deconditioning and unsafe home environment - 1 recent fall on 06/20 due to difficulty ambulating without assistance, unsafe to care for herself at home - severely impaired strength and sensation in bilateral LEs, cannot ambulate without assistance - PT/OT consulted, case management consulted for placement - pending - Per case management today, spoke to Sarah and they mentioned they will f/u tomorrow after referral is reviewed Pressure ulcerations, buttock near gluteal cleft - No overlying cellulitis - Patient turning, skin care, pressure ulcer precautions Constipation - no bowel movement for several days as of 06/26 and mild suprapubic TTP - KUB 06/27 without evidence of obstruction or stool impaction - s/p large, formed BM x1 on 06/29, abdominal pain resolved - continue to monitor Hypertension - Continue lisinopril 5 mg PO daily Hyperlipidemia - Rosuvastatin 10 mg PO daily COPD/asthma - Continue home inhalers - DuoNebs every 6 hours as needed - No acute exacerbation GERD - Continue Protonix twice daily Depression - Continue duloxetine 30 mg twice daily Diabetes mellitus - A1c 6.3% on 06/24/2020 - Patient home antiglycemic's were held 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 3 times daily as needed Bacterial sinusitis, resolved - Diagnosed as outpatient, started on Doxycycline several days ago and no current symptoms - Covid negative - d/c'd Doxycycline on 06/24 DVT prophylaxis: SCDs Diet: DM2 Disposition: Med/surg, CM following and continuing to pursue placement options CODE STATUS: DNR/DNI (2) Foot drop, bilateral: (3) HTN (hypertension): (4) Hyperlipidemia: (5) Chronic radicular lumbar pain: (6) Edema: (7) COPD (chronic obstructive pulmonary disease): (8) GERD (gastroesophageal reflux disease): (9) Lumbar spinal stenosis: (10) Diabetes mellitus: (11) Asthma: (12) Fibromyalgia: Admission and Anticipated Discharge Date Admission Date: June 24, 2020 Supervising Physician Co-Signing Physician Notes Resident Physician Supervision Note: I independently interviewed and examined the patient and verified the segura history and physical, reviewed labs and image studies, discussed the case with the resident Dr. Palacios and agree with the findings and care plan. Subjective Patient did ask overnight for some Immodium as she had a lot of bowel movements after the last dose of Miralax she received. Reports that yesterday she was able to work with PT and use a wheelchair for a while. Denies fever, chills, chest pain, palpitations, SOB, N/V. Review of Systems Review of Systems: All systems reviewed & are unremarkable except as noted in HPI & below Physical Exam Constitutional: + morbidly obese; no acute distress and not ill appearing Respiratory: normal respiratory effort, lungs clear to auscultation Cardiovascular: RRR, no murmur, no edema Heart Sounds: normal S1 and normal S2; no gallop, no murmur and no cardiac rub Gastrointestinal (Abdomen): normal bowel sounds, soft, nontender, no hepatosplenomegaly Psychiatric: A+Ox3, euthymic affect Speech: normal rate/rhythm/volume of speech Results & Data Results & Data ([facility]) Vital Signs (Past 12 Hours) Vital Signs Temp Pulse Resp BP Pulse Ox 06/30/20 15:46 36.9 C 79 16 113/72 93 06/30/20 07:20 37.1 C 89 18 131/73 97 Resident Activity Tracking Resident Involvement: Resident Care Provided Care Provided: Adult Hospital Medicine (1) Lumbar spinal stenosis Neurogenic claudication status: unspecified Qualified Code(s): M48.061 - Spinal stenosis, lumbar region without neurogenic claudication
[2020-06-30] MEDS: DULoxetine HCL 60 MG CAP PO SCH (20:25)
[2020-06-30] MEDS: MICONAZOLE NITRATE POWDER 43 GM EXT SCH (20:26)
[2020-06-30] MEDS: PRAMIPEXOLE DIHYDROCHLO 0.5 MG TAB PO SCH (20:26)
[2020-06-30] MEDS: MONTELUKAST SODIUM 10 MG TABLET PO SCH (20:27)
[2020-06-30] MEDS: traMADol HCL 50 MG TABLET PO PRN (23:52)
[2020-07-01 08:18] LABS: Basophils # (auto) 0.02 K/uL (0-0.2); Basophils % (auto) 0.3 %; Eosinophils # (auto) 0.15 K/uL (0-0.5); Hematocrit (blood only) 36.3 % (37-47); Hemoglobin 11.4 g/dL (12.0-16.0); Immature Granulocytes # (auto) 0.02 K/uL (0.00-0.02); Immature Granulocytes % (auto) 0.3 %; Lymphocytes # (auto) 2.17 K/uL (1.2-3.4); Lymphocytes % (auto) 28.4 %; Mean Corpuscular Hemoglobin 29.9 pg (25-34); Mean Corpuscular Hgb Conc 31.4 g/dL (32-36); Mean Corpuscular Volume 95.3 fL (80-100); Mean Platelet Volume 9.4 fL (7.4-10.4); Monocytes # (auto) 0.82 K/uL (0.11-0.59); Monocytes % (auto) 10.7 %; Neutrophils # (auto) 4.46 K/uL (1.4-6.5); Neutrophils % (auto) 58.3 %; Platelet Count 204 K/uL (130-400); RDW Coefficient of Variation 14.4 % (11.5-14.5); RDW Standard Deviation 49.9 fL (36.4-46.3); Red Blood Count 3.81 M/uL (4.2-5.4); White Blood Count 7.64 K/uL (4.8-10.8)
[2020-07-01 08:44] LABS: BUN Creatinine Ratio 34.5 (10-20); Calcium 9.2 mg/dl (8.5-10.1); Est GFR (African American) 97.2; Est GFR (Non-African American) 83.8
[2020-07-01] MEDS: FLUTICASONE/VILANTEROL 100/25MCG 14 PUFFS/INHALER INH SCH (09:07)
[2020-07-01] MEDS: INSULIN ASPART 100 UNITS/ML 3 ML PEN SC SCH ×4 (09:08→21:04)
[2020-07-01] MEDS: ROSUVASTATIN CALCIUM 10 MG TAB PO SCH (09:10)
[2020-07-01] MEDS: OXYBUTYNIN CHLORIDE XL 5 MG TABCR PO SCH (09:10)
[2020-07-01] MEDS: GABAPENTIN 300 MG CAP PO SCH ×2 (09:11→21:03)
[2020-07-01] MEDS: DULoxetine HCL 30 MG CAP PO SCH (09:11)
[2020-07-01] MEDS: PANTOprazole 40 MG TAB PO SCH ×2 (09:11→21:05)
[2020-07-01] MEDS: INSULIN GLARGINE SOLOSTAR 100 UNITS/ML 3 ML PEN SC SCH ×2 (09:12→21:03)
[2020-07-01] MEDS: MICONAZOLE NITRATE POWDER 43 GM EXT SCH ×2 (09:12→21:02)
--- NOTE | 2020-07-01 09:27 | Hospitalist Progress Note ---
Date of Service July 01, 2020 Assessment & Plan (1) Ambulatory dysfunction: Antonieta Manning is a 69-year-old female with a past medical history of diabetes, fibromyalgia, COPD, and severe spinal stenosis status post surgical decompression who presents with worsening weakness and ambulatory dysfunction and associated pressure ulcers 2 weeks after discharge home from rehab. Bilateral lower extremity weakness - 2/2 severe spinal stenosis status post cervical decompression on 03/05/2020 - presented for severe deconditioning and unsafe home environment - 1 recent fall on 06/20 due to difficulty ambulating without assistance, unsafe to care for herself at home - severely impaired strength and sensation in bilateral LEs, cannot ambulate without assistance - PT/OT consulted, case management consulted for placement - pending - Case management today: -There are pending referrals to: [facility]oo and [facility]. - Case management to discuss referral to [facility]. - Case management may also contact Veronique, patient's case therapist through [facility], for additional recommendations. Pressure ulcerations, buttock near gluteal cleft - No overlying cellulitis - Patient turning, skin care, pressure ulcer precautions Constipation - no bowel movement for several days as of 06/26 and mild suprapubic TTP - KUB 06/27 without evidence of obstruction or stool impaction - s/p large, formed BM x1 on 06/29, abdominal pain resolved - Patient reports some diarrhea after Miralax that has been getting better - continue to monitor Hypertension - Continue lisinopril 5 mg PO daily Hyperlipidemia - Rosuvastatin 10 mg PO daily COPD/asthma - Continue home inhalers - DuoNebs every 6 hours as needed - No acute exacerbation GERD - Continue Protonix twice daily Depression - Continue duloxetine 30 mg twice daily Diabetes mellitus - A1c 6.3% on 06/24/2020 - Patient home antiglycemic's 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 3 times daily as needed Bacterial sinusitis, resolved - Diagnosed as outpatient, started on Doxycycline several days ago and no current symptoms - Covid negative - d/c'd Doxycycline on 06/24 DVT prophylaxis: SCDs Diet: DM2 Disposition: Med/surg, CM following and continuing to pursue placement options CODE STATUS: DNR/DNI (2) Foot drop, bilateral: (3) HTN (hypertension): (4) Hyperlipidemia: (5) Chronic radicular lumbar pain: (6) Edema: (7) COPD (chronic obstructive pulmonary disease): (8) GERD (gastroesophageal reflux disease): (9) Lumbar spinal stenosis: (10) Diabetes mellitus: (11) Asthma: (12) Fibromyalgia: Admission and Anticipated Discharge Date Admission Date: June 24, 2020 Supervising Physician Co-Signing Physician Notes Resident Physician Supervision Note: I independently interviewed and examined the patient and verified the segura history and physical, reviewed labs and image studies, discussed the case with the resident Dr. Palacios and agree with the findings and care plan. Subjective Pt seen this morning at bedside. No acute events overnight. Mentions she still has some diarrhea after the Miralax but it has gotten much better and does not have abdominal pain anymore. No fever, chills, nausea, vomiting. Also mentioned that she feels much better now that she has been able to move around more in her wheelchair. Review of Systems Review of Systems: All systems reviewed & are unremarkable except as noted in HPI & below Physical Exam Constitutional: WD/WN, vitals as above + morbidly obese; no acute distress Respiratory: normal respiratory effort, lungs clear to auscultation Cardiovascular: RRR, no murmur, no edema Heart Sounds: normal S1 and normal S2 Gastrointestinal (Abdomen): normal bowel sounds, soft, nontender, no hepatosplenomegaly Skin: no rashes, warm and dry Psychiatric: A+Ox3, euthymic affect Results & Data Results & Data ([facility]) Vital Signs (Past 12 Hours) Vital Signs Temp Pulse Resp BP BP Pulse Ox 07/01/20 08:51 36.9 C 67 16 126/72 95 06/30/20 23:11 37.2 C 67 16 113/68 95 Resident Activity Tracking Resident Involvement: Resident Care Provided Care Provided: Adult Hospital Medicine (1) Lumbar spinal stenosis Neurogenic claudication status: unspecified Qualified Code(s): M48.061 - Spinal stenosis, lumbar region without neurogenic claudication
[2020-07-01] MEDS: ACETAMINOPHEN 325 MG TAB PO PRN (16:37)
[2020-07-01] MEDS: DULoxetine HCL 60 MG CAP PO SCH (21:02)
[2020-07-01] MEDS: PRAMIPEXOLE DIHYDROCHLO 0.5 MG TAB PO SCH (21:03)
[2020-07-01] MEDS: MONTELUKAST SODIUM 10 MG TABLET PO SCH (21:05)
[2020-07-01] MEDS: traMADol HCL 50 MG TABLET PO PRN (23:03)
[2020-07-02 08:00] LABS: BUN Creatinine Ratio 34.1 (10-20); Calcium 9.2 mg/dl (8.5-10.1); Est GFR (African American) 104.4; Est GFR (Non-African American) 90.1; Potassium 3.8 mmol/L (3.5-5.1)
--- NOTE | 2020-07-02 08:26 | Discharge Summary ---
Date of Service July 02, 2020 Admission HPI Per Admitting Provider Antonieta Manning is a 69-year-old female with a past medical history of diabetes, fibromyalgia, COPD, and severe spinal stenosis status post surgical decompression who presents with worsening weakness and ambulatory dysfunction and associated pressure ulcers 2 weeks after discharge home from rehab. Antonieta reports that she is here for inability to ambulate and ulcers on her buttock. She reports that she had surgery for severe spinal stenosis in [place] and was discharged to [facility] rehab following her surgery in February. At the time of discharge she was having lower extremity weakness bilaterally. She reports that at rehab she did "okay "and was starting to get a little bit stronger but still required 1 person assist and had trouble pivoting, but was able to do so sufficiently well to be discharged home on June 11. She reports since that time they have not been able to set her up with home therapy or home resources, and she has continued to weaken. On her granddaughter visited this weekend they are having difficulty helping her care and move around her trailer, she felt that Antonieta was too weak to care for herself at home and recommended she be seen in the emergency department. Patient denies new deficit, just chronic not improving weakness. She endorses foot drop bilaterally which is not improving. She had one sliding fall Tuesday, did not strike her head but slid to the floor and had difficulty standing. Denies weeping/discharge from the sores. She developed some sinus congestion 7 days ago and was placed on a 1 week course of doxycycline for sinusitis by her outpatient provider. Otherwise she feels that she has not had any sicklike symptoms, and denies fever, chills, sweats, shortness of breath, chest pain, difficulty breathing, cough, sputum production, burning with urination, inability to void, polyuria, abdominal pain. Has had multiple negative Covid tests including 1 on ER evaluation. She reports that her inability to ambulate well has caused her to develop buttock sores. Medical history: Reviewed Medications: Reviewed. Patient is not currently taking glimepiride which is on hold Surgical history: Reviewed, see below Allergies: Reviewed with patient, cetirizine and Metformin no anaphylaxis Family history: Noncontributory Social: Denies tobacco, alcohol, and recreational drug use. Lives in a trailer alone, has a landlord who checks in on her several times a day and a granddaughter who is visiting over the weekend. No recent sick contacts. Reports has had multiple negative tests for Covid including 1 on ER presentation today. Imaging review below MRI 03/02/2020:Progressive degenerative disc disease as described above. This is most pronounced at the L2-L3 and L3-L4 levels which demonstrates severe central canal narrowing. There is no appreciable thecal sac at the L3-L4 level which is therefore consistent with compression of the cauda equina. Surgical consultation recommended for possible decompression of the lumbar spine. No acute fracture or subluxation. Endplate edema at L3-L4 is nonspecific but favors the long-standing degenerative change. [facility] MRI Read 03/04/2020 CT Spine Lumbar w/o Contrast EXAMINATION: CT OF THE LUMBAR SPINE WITHOUT CONTRAST CLINICAL HISTORY: evaluate bone anatomy COMPARISON: Outside lumbar spine MRI dated 03/02/2020. TECHNIQUE: Routine helical CT of the lumbar spine without contrast, coronal and sagittal reconstructions. DOSE: Total Reported Dose Length Product (DLP) = 1640.01 mGy.cm FINDINGS: Alignment: Minimal anterolisthesis of L3 on L4. No other subluxation. Decreased AP diameter of the canal secondary to shortened pedicles. Vertebrae: No compression fractures or other fractures. Paraspinal space: Unremarkable. Visualized retroperitoneal: Unremarkable. Axial interbody analysis: T12-L1: Bilateral facet and ligamentous hypertrophy. Shortened pedicles. Minimal central canal stenosis and minimal bilateral neural foraminal stenosis. L1-L2: Bilateral facet and ligamentous hypertrophy. Shortened pedicles. Minimal central canal stenosis and minimal bilateral neural foraminal stenosis. L2-L3: Mild annular bulge with severe facet and ligamentous hypertrophy. Shortened pedicles. There is moderate to severe/severe central canal stenosis and mild to moderate bilateral neural foraminal stenosis. L3-L4: Posterior spondylitic ridging and diffuse annular bulge with severe bilateral facet and ligamentous hypertrophy. Shortened pedicles. Severe central canal stenosis with moderate to severe bilateral neural foraminal stenosis. L4-L5: Posterior spondylitic ridging and diffuse annular bulge. Bilateral facet and ligamentous hypertrophy. Shortened pedicles. Moderate/moderate to severe central canal stenosis. Moderate bilateral neural foraminal stenosis. L5-S1: Bilateral facet hypertrophy. No central canal stenosis. Minimal to mild bilateral neural foraminal stenosis. IMPRESSION: Severe spinal canal stenosis that is multifactorial in nature. This is greatest at L3/L4 with similar but slightly milder changes at L2/L3 and L4/L5. No acute bony abnormality. Post Surgical XR Reason For Exam Lumbar Fusion XR Spine Lumbosacral 2 or 3 Views FINDINGS: AP and lateral views of the lumbar spine show transitional anatomy with partial sacralization of L5 on the left. Utilizing this numbering system there are postoperative changes of L2-L4 posterior decompression with instrumented interbody and posterior fusion. Less than 1 mm of radiolucency around the L2 pedicle screws. Unchanged anterolisthesis of L3 on L4. Severe disc degenerative change at L4-L5 and L5-S1. Anterior osteophytes in the lower thoracic spine with multilevel disc degenerative changes. Atherosclerotic calcification of the aorta. Moderate degenerative change of the sacroiliac joints and hips. IMPRESSION: L2-L4 posterior decompression and instrumented interbody and posterior fusion. Minimal radiolucency around the L2 pedicle screws-attention on follow-up imaging is recommended to evaluate for loosening. [facility] Note 06/10/2020: PLAN: At this time, we discussed with the patient today that we agree with her that she does still need dedicated rehabilitation for her lower extremities, particularly for leg strengthening and gait training. We have counseled her that muscle strengthening can take weeks to months post surgery, but we cannot guarantee that her function will be restored. We have also instructed her that good diabetic control is important for nerve health. She should continue calcium and vitamin D supplementation. Handout was provided. We also provided her with a home physical therapy order, so that there should not be any delay in her getting home therapy when she is formally discharged from the facility, where she is residing. We have asked her to call with any questions or concerns, and we will plan to see her back in 4 months with x-rays of the lumbar spine including AP and lateral views upon arrival. Dr. Alexandre was present for the treatment and p Discharge Data Allergies Allergy/AdvReac Type Severity Reaction Status Date / Time cetirizine Allergy Intermediate RASH Verified 06/18/20 11:32 metformin AdvReac Unknown GI upset Verified 06/18/20 11:32 Consultations 06/23/20 18:18 ED Decision to Admit Stat 06/24/20 00:26 Consult Case Management - Discharge Planning Routine Hospital Course (1) Ambulatory dysfunction: Antonieta Manning is a 69-year-old female with a past medical history of diabetes, fibromyalgia, COPD, and severe spinal stenosis status post surgical decompression who presents with worsening weakness and ambulatory dysfunction and associated pressure ulcers 2 weeks after discharge home from rehab. Bilateral lower extremity weakness - 2/2 severe spinal stenosis status post cervical decompression on 03/05/2020 - presented for severe deconditioning and unsafe home environment - 1 recent fall on 06/20 due to difficulty ambulating without assistance, unsafe to care for herself at home - severely impaired strength and sensation in bilateral LEs, cannot ambulate without assistance - PT/OT consulted, case management consulted for placement - pending - Case management today: -There are pending referrals to: [facility] and [facility]. - Case management to discuss referral to [facility]. - Case management may also contact Veronique, patient's telehealth case manager through [facility], for additional recommendations. Pressure ulcerations, buttock near gluteal cleft - No overlying cellulitis - Patient turning, skin care, pressure ulcer precautions Constipation - no bowel movement for several days as of 06/26 and mild suprapubic TTP - KUB 06/27 without evidence of obstruction or stool impaction - s/p large, formed BM x1 on 06/29, abdominal pain resolved - Patient reports some diarrhea after Miralax that has been getting better - continue to monitor Hypertension - Continue lisinopril 5 mg PO daily Hyperlipidemia - Rosuvastatin 10 mg PO daily COPD/asthma - Continue home inhalers - DuoNebs every 6 hours as needed - No acute exacerbation GERD - Continue Protonix twice daily Depression - Continue duloxetine 30 mg twice daily Diabetes mellitus - A1c 6.3% on 06/24/2020 - Patient home antiglycemic's were held 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 3 times daily as needed Bacterial sinusitis, resolved - Diagnosed as outpatient, started on Doxycycline several days ago and no current symptoms - Covid negative - d/c'd Doxycycline on 06/24 DVT prophylaxis: SCDs Diet: DM2 Disposition: Med/surg, CM following and continuing to pursue placement options CODE STATUS: DNR/DNI (2) Foot drop, bilateral: (3) HTN (hypertension): (4) Hyperlipidemia: (5) Chronic radicular lumbar pain: (6) Edema: (7) COPD (chronic obstructive pulmonary disease): (8) GERD (gastroesophageal reflux disease): (9) Lumbar spinal stenosis: (10) Diabetes mellitus: (11) Asthma: (12) Fibromyalgia: Discharge Plan Discharge Items Patient Disposition: Transfer Inpatient Rehab Fac Reason For Visit: SKIN ULCERATION, AMBULATORY DYSFUNCTION Discharge Diagnosis: Ambulatory dysfunction Activity: Per Instructions section Non-emergency contact: Primary Care Provider Call non-emergency contact if: you have any medication questions and your symptoms worsen Follow-up/Referrals: Chava Ronquillo MD [Primary Care Provider] - Diet: Carb Consistent or DM2 Addtl Attending Provider Instructions: You presented to [facility] due to worsening weakness and ambulatory dysfunction. While here you worked with physical therapy and occupational therapy. You will be discharged to an inpatient rehabilitation facility where you will be working further on your physical rehabilitation as well as your ability to complete your activities independently. Please follow up with your primary care provider to further discuss management of your conditions. Pending Studies at Discharge: No Stand-Alone Forms: My [facility] Skilled Items Patient informed of condition?: Yes DNR: Yes Discharge Level of Care: Acute rehab Communicable Disease: No Discharge Prognosis: Stable Lines: None Urinary Catheter: Yes Medications and DC Order Prescriptions: No Action pantoprazole 40 mg tablet,delayed release (DR/EC) 40 mg PO BID Qty: 180 RF: 3 lisinopril 5 mg tablet 5 mg PO DAILY Qty: 90 RF: 3 albuterol sulfate 2.5 mg /3 mL (0.083 %) solution for nebulization 2.5 mg INH QID PRN (Reason: shortness of breath or wheezing) Qty: 90 RF: 3 cholecalciferol (vitamin D3) 1,000 unit capsule 3,000 units PO QAM RF: 0 oxybutynin chloride 10 mg tablet extended release 24hr 10 mg PO DAILY RF: 0 cyclobenzaprine 5 mg tablet 5 mg PO TID PRN (Reason: Spasms) RF: 0 gabapentin 300 mg capsule 300 mg PO BID RF: 0 rosuvastatin 10 mg tablet 10 mg PO DAILY RF: 0 duloxetine 30 mg capsule,delayed release(DR/EC) 30 mg PO BID Qty: 30 RF: 0 tramadol 50 mg tablet 100 mg PO Q6H PRN (Reason: pain) Qty: 90 RF: 0 glimepiride [Amaryl] 1 mg tablet 1 mg PO QAM Qty: 90 RF: 3 albuterol sulfate 90 mcg/actuation HFA aerosol inhaler 2 puffs INH Q6H PRN (Reason: shortness of breath or wheezing) Qty: 18 RF: 3 potassium chloride 10 mEq capsule, extended release 10 meq PO BID Qty: 30 RF: 2 acetaminophen [Tylenol] 325 mg Tablet 325 mg PO QID PRN (Reason: Pain) RF: 0 pramipexole [Mirapex] 0.5 mg tablet 0.5 mg PO HS RF: 0 montelukast [Singulair] 10 mg tablet 10 mg PO HS RF: 0 biotin 5,000 mcg Tablet,Disintegrating 5,000 mcg PO QAM RF: 0 fluticasone propionate 50 mcg/actuation spray,suspension 2 sprays INTNAS DAILY PRN (Reason: NASALL CONGESTION) RF: 0 furosemide [Lasix] 40 mg tablet 40 mg PO QAM RF: 0 Premarin 0.625 mg/gram cream 0.3125 mg vaginal 2XWK RF: 0 doxycycline hyclate 100 mg capsule 100 mg PO BID RF: 0 Breo Ellipta 100-25 mcg/dose blister with device 1 inh INHALATION DAILY RF: 0 lisinopril 5 mg tablet 5 mg PO DAILY RF: 0 potassium chloride 10 mEq capsule, extended release 10 meq PO BID RF: 0 Admission Data Admit Date/Time: 06/24/20 18:57 Attending Provider: Nathalie Carver Admit Provider: Tico Perez Primary Care Provider: Chava Ronquillo Other Providers: Andrew Jiang ; Chirag Lockwood ; [facility] ; Trini Ralph [facility] ; Jeramy Rivera ; [facility]
[2020-07-02] MEDS: ROSUVASTATIN CALCIUM 10 MG TAB PO SCH (09:10)
[2020-07-02] MEDS: FLUTICASONE/VILANTEROL 100/25MCG 14 PUFFS/INHALER INH SCH (09:10)
[2020-07-02] MEDS: DULoxetine HCL 30 MG CAP PO SCH (09:10)
[2020-07-02] MEDS: OXYBUTYNIN CHLORIDE XL 5 MG TABCR PO SCH (09:10)
[2020-07-02] MEDS: MICONAZOLE NITRATE POWDER 43 GM EXT SCH ×2 (09:11→20:44)
[2020-07-02] MEDS: GABAPENTIN 300 MG CAP PO SCH ×2 (09:11→20:43)
[2020-07-02] MEDS: PANTOprazole 40 MG TAB PO SCH ×2 (09:11→20:43)
[2020-07-02] MEDS: ACETAMINOPHEN 325 MG TAB PO PRN ×2 (09:12→19:40)
[2020-07-02] MEDS: INSULIN ASPART 100 UNITS/ML 3 ML PEN SC SCH ×4 (09:17→20:46)
[2020-07-02] MEDS: INSULIN GLARGINE SOLOSTAR 100 UNITS/ML 3 ML PEN SC SCH ×2 (09:17→20:46)
--- NOTE | 2020-07-02 18:44 | Hospitalist Progress Note ---
Date of Service July 02, 2020 Assessment & Plan (1) Ambulatory dysfunction: Antonieta Manning is a 69-year-old female with a past medical history of diabetes, fibromyalgia, COPD, and severe spinal stenosis status post surgical decompression who presents with worsening weakness and ambulatory dysfunction and associated pressure ulcers 2 weeks after discharge home from rehab. Bilateral lower extremity weakness - 2/2 severe spinal stenosis status post cervical decompression on 03/05/2020 - presented for severe deconditioning and unsafe home environment - 1 recent fall on 06/20 due to difficulty ambulating without assistance, unsafe to care for herself at home - severely impaired strength and sensation in bilateral LEs, cannot ambulate without assistance - PT/OT consulted, case management consulted for placement - pending - Case management today: - Telephone call to [facility]. Spoke with admissions. They are currently not accepting new referrals for admissions. No patient information provided. - Telephone call to [facility] in [place]. Spoke with admissions. They have no bed availability to accept new admissions at this time. No patient information provided. - Telephone call to [facility]. No answer with their admissions. Left voicemail message requesting return telephone call. No patient information provided. Pressure ulcerations, buttock near gluteal cleft - No overlying cellulitis - Patient turning, skin care, pressure ulcer precautions Constipation - no bowel movement for several days as of 06/26 and mild suprapubic TTP - KUB 06/27 without evidence of obstruction or stool impaction - s/p large, formed BM x1 on 06/29, abdominal pain resolved - Patient reports diarrhea resolved - continue to monitor Hypertension - Continue lisinopril 5 mg PO daily Hyperlipidemia - Rosuvastatin 10 mg PO daily COPD/asthma - Continue home inhalers - DuoNebs every 6 hours as needed - No acute exacerbation GERD - Continue Protonix twice daily Depression - Continue duloxetine 30 mg twice daily Diabetes mellitus - A1c 6.3% on 06/24/2020 - Patient home antiglycemic's were held 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 3 times daily as needed Bacterial sinusitis, resolved - Diagnosed as outpatient, started on Doxycycline several days ago and no current symptoms - Covid negative - d/c'd Doxycycline on 06/24 DVT prophylaxis: SCDs Diet: DM2 Disposition: Med/surg, CM following and continuing to pursue placement options CODE STATUS: DNR/DNI (2) Foot drop, bilateral: (3) HTN (hypertension): (4) Hyperlipidemia: (5) Chronic radicular lumbar pain: (6) Edema: (7) COPD (chronic obstructive pulmonary disease): (8) GERD (gastroesophageal reflux disease): (9) Lumbar spinal stenosis: (10) Diabetes mellitus: (11) Asthma: (12) Fibromyalgia: Admission and Anticipated Discharge Date Admission Date: June 24, 2020 Supervising Physician Co-Signing Physician Notes Resident Physician Supervision Note: I independently interviewed and examined the patient and verified the segura history and physical, reviewed labs and image studies, discussed the case with the resident Dr. Palacios and agree with the findings and care plan. Subjective Patient seen at bedside today. No acute events overnight. No complaints today. Has been working with PT/OT, awaiting placement eagerly. Has tried calling multiple facilities on her own as well as working with Case management. Reports diarrhea now resolved. Review of Systems Review of Systems: All systems reviewed & are unremarkable except as noted in HPI & below Physical Exam Constitutional: WD/WN, vitals as above + morbidly obese; no acute distress and not ill appearing Respiratory: normal respiratory effort, lungs clear to auscultation Cardiovascular: RRR, no murmur, no edema Heart Sounds: normal S1 and normal S2; no gallop, no murmur and no cardiac rub Gastrointestinal (Abdomen): normal bowel sounds, soft, nontender, no hepatosplenomegaly Skin: no rashes, warm and dry Psychiatric: A+Ox3, euthymic affect Orientation: alert and oriented x 3 Speech: normal rate/rhythm/volume of speech Affect: + tearful affect Results & Data Results & Data ([facility]) Vital Signs (Past 12 Hours) Vital Signs Temp Pulse Pulse Resp BP Pulse Ox 07/02/20 16:00 36.8 C 68 18 108/77 95 07/02/20 07:10 36.9 C 66 16 149/51 H 97 Resident Activity Tracking Resident Involvement: Resident Care Provided Care Provided: Adult Hospital Medicine (1) Lumbar spinal stenosis Neurogenic claudication status: unspecified Qualified Code(s): M48.061 - Spinal stenosis, lumbar region without neurogenic claudication
[2020-07-02] MEDS: PRAMIPEXOLE DIHYDROCHLO 0.5 MG TAB PO SCH (20:42)
[2020-07-02] MEDS: DULoxetine HCL 60 MG CAP PO SCH (20:42)
[2020-07-02] MEDS: MONTELUKAST SODIUM 10 MG TABLET PO SCH (20:43)
[2020-07-02] MEDS: traMADol HCL 50 MG TABLET PO PRN (23:16)
[2020-07-03] MEDS: FLUTICASONE/VILANTEROL 100/25MCG 14 PUFFS/INHALER INH SCH (08:40)
[2020-07-03] MEDS: GABAPENTIN 300 MG CAP PO SCH ×2 (08:40→21:11)
[2020-07-03] MEDS: ROSUVASTATIN CALCIUM 10 MG TAB PO SCH (08:40)
[2020-07-03] MEDS: DULoxetine HCL 30 MG CAP PO SCH (08:41)
[2020-07-03] MEDS: OXYBUTYNIN CHLORIDE XL 5 MG TABCR PO SCH (08:41)
[2020-07-03] MEDS: PANTOprazole 40 MG TAB PO SCH ×2 (08:41→21:11)
[2020-07-03] MEDS: MICONAZOLE NITRATE POWDER 43 GM EXT SCH ×2 (08:42→21:10)
[2020-07-03] MEDS: INSULIN GLARGINE SOLOSTAR 100 UNITS/ML 3 ML PEN SC SCH ×2 (08:44→21:09)
[2020-07-03] MEDS: INSULIN ASPART 100 UNITS/ML 3 ML PEN SC SCH ×4 (08:46→21:07)
[2020-07-03 08:47] LABS: BUN Creatinine Ratio 33.5 (10-20); Calcium 9.2 mg/dl (8.5-10.1); Creatinine Clr Calc Pharmacy 107.1 ml/min; Est GFR (African American) 105.4
[2020-07-03] MEDS: ACETAMINOPHEN 325 MG TAB PO PRN ×3 (08:54→21:14)
--- NOTE | 2020-07-03 12:12 | Hospitalist Progress Note ---
Date of Service July 03, 2020 Assessment & Plan (1) Ambulatory dysfunction: Antonieta Manning is a 69-year-old female with a past medical history of diabetes, fibromyalgia, COPD, and severe spinal stenosis status post surgical decompression who presents with worsening weakness and ambulatory dysfunction and associated pressure ulcers 2 weeks after discharge home from rehab. Bilateral lower extremity weakness - 2/2 severe spinal stenosis status post cervical decompression on 03/05/2020 - presented for severe deconditioning and unsafe home environment - 1 recent fall on 06/20 due to difficulty ambulating without assistance, unsafe to care for herself at home - severely impaired strength and sensation in bilateral LEs, cannot ambulate without assistance - PT/OT consulted, case management consulted for placement - pending - Case management today: 1. [facility] - Insurance denied 2. [facility] - Does not accept patient's secondary insurance 3. [facility] - Unable to accept as patient has an outstanding bill 4. [facility] - No bed availability 5. [facility] - Initially no bed availability and now unable to accept new admission 6. [facility] - No bed availability [facility] (SNF unit) is accepting new admissions. [facility] may have availability later this week. Patient is not agreeable to referrals being made to either facility at this time. Again discussed that we are at a standstill and need to actively be working on discharge planning. Strongly encouraged patient to consider referrals to [facility] and [facility] so she can get the therapy she is requesting. Pressure ulcerations, buttock near gluteal cleft - No overlying cellulitis - Patient turning, skin care, pressure ulcer precautions Constipation - no bowel movement for several days as of 06/26 and mild suprapubic TTP - KUB 06/27 without evidence of obstruction or stool impaction - s/p large, formed BM x1 on 06/29, abdominal pain resolved - Patient reports diarrhea resolved - continue to monitor Hypertension - Continue lisinopril 5 mg PO daily Hyperlipidemia - Rosuvastatin 10 mg PO daily COPD/asthma - Continue home inhalers - DuoNebs every 6 hours as needed - No acute exacerbation GERD - Continue Protonix twice daily Depression - Continue duloxetine 30 mg twice daily Diabetes mellitus - A1c 6.3% on 06/24/2020 - Patient home antiglycemic's were held 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 3 times daily as needed Bacterial sinusitis, resolved - Diagnosed as outpatient, started on Doxycycline several days ago and no current symptoms - Covid negative - d/c'd Doxycycline on 06/24 DVT prophylaxis: SCDs Diet: DM2 Disposition: Med/surg, CM following and continuing to pursue placement options CODE STATUS: DNR/DNI (2) Foot drop, bilateral: (3) HTN (hypertension): (4) Hyperlipidemia: (5) Chronic radicular lumbar pain: (6) Edema: (7) COPD (chronic obstructive pulmonary disease): (8) GERD (gastroesophageal reflux disease): (9) Lumbar spinal stenosis: (10) Diabetes mellitus: (11) Asthma: (12) Fibromyalgia: Admission and Anticipated Discharge Date Admission Date: June 24, 2020 Supervising Physician Co-Signing Physician Notes Resident Physician Supervision Note: I independently interviewed and examined the patient and verified the segura history and physical, reviewed labs and image studies, discussed the case with the resident Dr. Palacios and agree with the findings and care plan. Subjective No acute events overnight. Patient seen at bedside this AM. She reports that she's been trying to deal with her home situation as she was told she would have to move her belongings from her current home before the end of the year. Has been communicating with family and friends regarding this. She will discuss the situation with case management as well and try to work something out. Denies any symptoms overnight. No CP, palp, n/v, diarrhea, constipation, abd pain. Review of Systems Review of Systems: All systems reviewed & are unremarkable except as noted in HPI & below Physical Exam Constitutional: WD/WN, vitals as above + morbidly obese; no acute distress and not ill appearing Respiratory: normal respiratory effort, lungs clear to auscultation Cardiovascular: RRR, no murmur, no edema Heart Sounds: normal S1 and normal S2; no gallop, no murmur and no cardiac rub Gastrointestinal (Abdomen): normal bowel sounds, soft, nontender, no hepatosplenomegaly Skin: no rashes, warm and dry Psychiatric: A+Ox3, euthymic affect Orientation: alert and oriented x 3 Speech: normal rate/rhythm/volume of speech Results & Data Results & Data ([facility]) Vital Signs (Past 12 Hours) Vital Signs Temp Pulse Resp BP Pulse Ox 07/03/20 07:27 36.7 C 70 16 110/61 96 Resident Activity Tracking Resident Involvement: Resident Care Provided Care Provided: Adult [facility] (1) Lumbar spinal stenosis Neurogenic claudication status: unspecified Qualified Code(s): M48.061 - Spinal stenosis, lumbar region without neurogenic claudication
[2020-07-03] MEDS: MONTELUKAST SODIUM 10 MG TABLET PO SCH (21:10)
[2020-07-03] MEDS: DULoxetine HCL 60 MG CAP PO SCH (21:11)
[2020-07-03] MEDS: PRAMIPEXOLE DIHYDROCHLO 0.5 MG TAB PO SCH (21:11)
[2020-07-03] MEDS: traMADol HCL 50 MG TABLET PO PRN (23:21)
[2020-07-03] MEDS: CYCLOBENZAPRINE HCL 5 MG TAB PO PRN (23:41)
[2020-07-04 07:33] LABS: BUN Creatinine Ratio 29.4 (10-20); Calcium 8.9 mg/dl (8.5-10.1); Creatinine Clr Calc Pharmacy 98.3 ml/min; Est GFR (African American) 98.8; Est GFR (Non-African American) 85.2; Potassium 3.8 mmol/L (3.5-5.1)
[2020-07-04] MEDS: FLUTICASONE/VILANTEROL 100/25MCG 14 PUFFS/INHALER INH SCH (09:57)
[2020-07-04] MEDS: PANTOprazole 40 MG TAB PO SCH ×2 (09:57→21:01)
[2020-07-04] MEDS: OXYBUTYNIN CHLORIDE XL 5 MG TABCR PO SCH (09:58)
[2020-07-04] MEDS: GABAPENTIN 300 MG CAP PO SCH ×2 (09:58→21:01)
[2020-07-04] MEDS: MICONAZOLE NITRATE POWDER 43 GM EXT SCH ×2 (09:58→21:00)
[2020-07-04] MEDS: DULoxetine HCL 30 MG CAP PO SCH (09:58)
[2020-07-04] MEDS: ROSUVASTATIN CALCIUM 10 MG TAB PO SCH (09:58)
[2020-07-04] MEDS: INSULIN GLARGINE SOLOSTAR 100 UNITS/ML 3 ML PEN SC SCH ×2 (09:59→21:02)
[2020-07-04] MEDS: INSULIN ASPART 100 UNITS/ML 3 ML PEN SC SCH ×4 (10:01→20:53)
[2020-07-04] MEDS: traMADol HCL 50 MG TABLET PO PRN ×2 (10:25→19:33)
--- NOTE | 2020-07-04 13:09 | Hospitalist Progress Note ---
Date of Service July 04, 2020 Assessment & Plan (1) Ambulatory dysfunction: Antonieta Manning is a 69-year-old female with a past medical history of diabetes, fibromyalgia, COPD, and severe spinal stenosis status post surgical decompression who presents with worsening weakness and ambulatory dysfunction and associated pressure ulcers 2 weeks after discharge home from rehab. Bilateral lower extremity weakness - 2/2 severe spinal stenosis status post cervical decompression on 03/05/2020 - presented for severe deconditioning and unsafe home environment - 1 recent fall on 06/20 due to difficulty ambulating without assistance, unsafe to care for herself at home - severely impaired strength and sensation in bilateral LEs, cannot ambulate without assistance - PT/OT consulted, case management consulted for placement - pending - Case management working with patient. Per their note, she patient does not want discharge to inpatient rehab as she wants to go home and collect her belongings before she has to move out - Will be discharged under care of family--currently no one is available but pt says she will be able to find someone by Tuesday or Tuesday Pressure ulcerations, buttock near gluteal cleft - No overlying cellulitis - Patient turning, skin care, pressure ulcer precautions Constipation - no bowel movement for several days as of 06/26 and mild suprapubic TTP - KUB 06/27 without evidence of obstruction or stool impaction - s/p large, formed BM x1 on 06/29, abdominal pain resolved - Patient reports diarrhea resolved - continue to monitor Hypertension - Continue lisinopril 5 mg PO daily Hyperlipidemia - Rosuvastatin 10 mg PO daily COPD/asthma - Continue home inhalers - DuoNebs every 6 hours as needed - No acute exacerbation GERD - Continue Protonix twice daily Depression - Continue duloxetine 30 mg twice daily Diabetes mellitus - A1c 6.3% on 06/24/2020 - Patient home antiglycemic's were held [employer]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 3 times daily as needed Bacterial sinusitis, resolved - Diagnosed as outpatient, started on Doxycycline several days ago and no current symptoms - Covid negative - d/c'd Doxycycline on 06/24 DVT prophylaxis: SCDs Diet: DM2 Disposition: Med/surg, CM following and continuing to pursue placement options CODE STATUS: DNR/DNI (2) Foot drop, bilateral: (3) HTN (hypertension): (4) Hyperlipidemia: (5) Chronic radicular lumbar pain: (6) Edema: (7) COPD (chronic obstructive pulmonary disease): (8) GERD (gastroesophageal reflux disease): (9) Lumbar spinal stenosis: (10) Diabetes mellitus: (11) Asthma: (12) Fibromyalgia: Admission and Anticipated Discharge Date Admission Date: June 24, 2020 Supervising Physician Co-Signing Physician Notes Resident Physician Supervision Note: I independently interviewed and examined the patient and verified the segura history and physical, reviewed labs and image studies, discussed the case with the resident Dr. Palacios and agree with the findings and care plan. Subjective Patient sitting at edge of bed this morning having breakfast. No acute distress. Has been working with case management for help finding placement at inpatient rehabilitation. Denies any new symptoms including CP, palp, SOB, n/v, constipation, diarrhea. Review of Systems Review of Systems: Pertinent positives and negatives mentioned in HPI Physical Exam Constitutional: WD/WN, vitals as above + morbidly obese; no acute distress and not ill appearing Respiratory: normal respiratory effort, lungs clear to auscultation Cardiovascular: RRR, no murmur, no edema Heart Sounds: normal S1 and normal S2; no gallop, no murmur and no cardiac rub Gastrointestinal (Abdomen): normal bowel sounds, soft, nontender, no hepatosplenomegaly Skin: no rashes, warm and dry Psychiatric: A+Ox3, euthymic affect Orientation: alert and oriented x 3 Speech: normal rate/rhythm/volume of speech Affect: + tearful affect Results & Data [facility] & [facility] ([facility]) Vital Signs (Past 12 Hours) Vital Signs Temp Pulse Resp BP Pulse Ox 07/04/20 07:50 37 C 57 L 16 103/62 94 Resident Activity Tracking Resident Involvement: Resident Care Provided Care Provided: Adult Hospital Medicine (1) Lumbar spinal stenosis Neurogenic claudication status: unspecified Qualified Code(s): M48.061 - Spinal stenosis, lumbar region without neurogenic claudication
[2020-07-04] MEDS: ACETAMINOPHEN 325 MG TAB PO PRN ×2 (15:57→23:46)
[2020-07-04] MEDS: DULoxetine HCL 60 MG CAP PO SCH (21:00)
[2020-07-04] MEDS: PRAMIPEXOLE DIHYDROCHLO 0.5 MG TAB PO SCH (21:00)
[2020-07-04] MEDS: MONTELUKAST SODIUM 10 MG TABLET PO SCH (21:01)
[2020-07-04] MEDS: CYCLOBENZAPRINE HCL 5 MG TAB PO PRN (23:46)
--- NOTE | 2020-07-05 06:46 | Hospitalist Progress Note ---
Date of Service July 05, 2020 Assessment & Plan (1) Ambulatory dysfunction: 69 y/o F w/ hx of diabetes, fibromyalgia, COPD, and severe spinal stenosis s/p surgical decompression who presented with worsening weakness and ambulatory dysfunction and associated pressure ulcers 2 weeks after discharge home from rehab. Bilateral lower extremity weakness - 2/2 severe spinal stenosis status post cervical decompression on 03/05/2020 - presented for severe deconditioning and unsafe home environment - 1 recent fall on 06/20 due to difficulty ambulating without assistance, unsafe to care for herself at home - severely impaired strength and sensation in bilateral LEs, cannot ambulate without assistance - PT/OT consulted, case management consulted for placement - pending - Case management working with patient. Per their note, she patient does not want discharge to inpatient rehab as she wants to go home and collect her belongings before she has to move out - Will be discharged under care of family--currently no one is available but pt says she will be able to find someone by 07/07/20 or 07/08/20 Pressure ulcerations, buttock near gluteal cleft - No overlying cellulitis - Continue patient turning, skin care, pressure ulcer precautions - bandaged appeared clean, dry, intact this AM Constipation - KUB 06/27 without evidence of obstruction or stool impaction - s/p large, formed BM x1 on 06/29, abdominal pain resolved - Patient reports diarrhea resolved - continue to monitor Hypertension - Continue lisinopril 5 mg PO daily Hyperlipidemia - Rosuvastatin 10 mg PO daily COPD/asthma - Continue home inhalers - DuoNebs every 6 hours as needed GERD - Continue Protonix twice daily Depression - Continue duloxetine 30 mg twice daily Diabetes mellitus - A1c 6.3% on 06/24/2020 - Patient 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 3 times daily as needed Bacterial sinusitis, resolved - Diagnosed as outpatient, started on Doxycycline several days ago and no current symptoms - Covid negative - d/c'd Doxycycline on 06/24 FEN/GI: DM2 diet. Not on mIVF. DVT prophylaxis: SCDs Disposition: Med/surg, CM following, dispo plan is home 07/07/20 or 07/08/20 pending availability of patient's family. CODE STATUS: DNR/DNI (2) Foot drop, bilateral: (3) HTN (hypertension): (4) Hyperlipidemia: (5) Chronic radicular lumbar pain: (6) Edema: (7) COPD (chronic obstructive pulmonary disease): (8) GERD (gastroesophageal reflux disease): (9) Lumbar spinal stenosis: (10) Diabetes mellitus: (11) Asthma: (12) Fibromyalgia: Admission and Anticipated Discharge Date Admission Date: June 24, 2020 Supervising Physician Co-Signing Physician Notes Resident Physician Supervision Note: I independently interviewed and examined the patient and verified the segura history and physical, reviewed labs and image studies, discussed the case with the resident Dr. Curry and agree with the findings and care plan. Subjective Back pain is improved from yesterday, currently a 4/10 intensity vs 8/10 yesterday. Received tylenol x1 and tramadol x 1 overnight. Waiting on family regarding dispo, likely 07/07 or 07/08. Eating breakfast. [place] removed yesterday. Patient reports frequency and some incontinence. Per patient, on cpap w/ 3L supp O2 at home during nighttime only. Review of Systems Review of Systems: Constitutional: Denies fever, chills Cardiovascular: Denies Chest pain, chest pressure, palpitations Respiratory: Denies shortness of breath, difficulty breathing Gastrointestinal: Denies abdominal pain, nausea, vomiting, constipation, diarrhea Genitourinary: See HPI. No dysuria Musculoskeletal: + lower back pain Neurological: + numbness/tingling of feet, chronic Physical Exam Physical Exam: General: Grossly A&O. NAD. Cooperative. Morbidly obese. HEENT: Atraumatic, normocephalic. Pulm: CTAB. -wheezes, -rales, -rhonchi. Symmetrical chest rise. No respiratory distress. Cardiac: RRR, -mrg. Radial pulses intact and symmetrical. Trace LE edema Abdominal: Nontender, nondistended, soft. Msk: Some TTP at sacral area. No TTP at lumbar or thoracic spine. Integ: Sacral ulcer, covered by pad, clean/dry/intact Results & Data Results & Data ([facility]) Vital Signs (Past 12 Hours) Vital Signs Temp Pulse Resp BP Pulse Ox 07/04/20 23:20 36.5 C 61 18 121/78 99 Resident Activity Tracking Resident Involvement: Resident Care Provided Care Provided: Adult Hospital Medicine (1) Lumbar spinal stenosis Neurogenic claudication status: unspecified Qualified Code(s): M48.061 - Spinal stenosis, lumbar region without neurogenic claudication
[2020-07-05] MEDS: INSULIN ASPART 100 UNITS/ML 3 ML PEN SC SCH ×4 (08:57→20:27)
[2020-07-05] MEDS: INSULIN GLARGINE SOLOSTAR 100 UNITS/ML 3 ML PEN SC SCH ×3 (08:59→20:27)
[2020-07-05] MEDS: FLUTICASONE/VILANTEROL 100/25MCG 14 PUFFS/INHALER INH SCH (09:12)
[2020-07-05] MEDS: PANTOprazole 40 MG TAB PO SCH ×2 (09:13→20:12)
[2020-07-05] MEDS: DULoxetine HCL 30 MG CAP PO SCH (09:13)
[2020-07-05] MEDS: GABAPENTIN 300 MG CAP PO SCH ×2 (09:13→20:12)
[2020-07-05] MEDS: ROSUVASTATIN CALCIUM 10 MG TAB PO SCH (09:13)
[2020-07-05] MEDS: MICONAZOLE NITRATE POWDER 43 GM EXT SCH ×2 (09:14→21:19)
[2020-07-05] MEDS: OXYBUTYNIN CHLORIDE XL 5 MG TABCR PO SCH (09:14)
[2020-07-05] MEDS: ACETAMINOPHEN 325 MG TAB PO PRN (19:40)
[2020-07-05] MEDS: PRAMIPEXOLE DIHYDROCHLO 0.5 MG TAB PO SCH (20:12)
[2020-07-05] MEDS: MONTELUKAST SODIUM 10 MG TABLET PO SCH (20:12)
[2020-07-05] MEDS: DULoxetine HCL 60 MG CAP PO SCH (20:13)
[2020-07-05] MEDS: CYCLOBENZAPRINE HCL 5 MG TAB PO PRN (22:50)
[2020-07-05] MEDS: traMADol HCL 50 MG TABLET PO PRN (22:50)
--- NOTE | 2020-07-06 07:45 | Hospitalist Progress Note ---
Date of Service July 06, 2020 Assessment & Plan (1) Ambulatory dysfunction: Antonieta Manning is a 69 y/o female with h/o diabetes, fibromyalgia, COPD, and severe spinal stenosis s/p surgical decompression who presented with worsening weakness and ambulatory dysfunction and associated pressure ulcers 2 weeks after discharge home from rehab. Home health pending. Bilateral lower extremity weakness - 2/2 severe spinal stenosis status post cervical decompression on 03/05/2020 - presented for severe deconditioning and unsafe home environment - 1 recent fall on 06/20 due to difficulty ambulating without assistance, unsafe to care for herself at home - severely impaired strength and sensation in bilateral LEs, cannot ambulate without assistance - PT/OT consulted, case management consulted for placement - pending - Case management working with patient. Per their note, she patient does not want discharge to inpatient rehab as she wants to go home and collect her belongings before she has to move out - Will be discharged under care of family--currently no one is available but pt says she will be able to find someone by 07/07/20 or 07/08/20 Pressure ulcerations, buttock near gluteal cleft - No overlying cellulitis - Continue patient turning, skin care, pressure ulcer precautions - bandaged appeared clean, dry, intact this AM Constipation - KUB 06/27 without evidence of obstruction or stool impaction - s/p large, formed BM x1 on 06/29, abdominal pain resolved - Patient reports diarrhea resolved - continue to monitor Hypertension - Continue lisinopril 5 mg PO daily Hyperlipidemia - Rosuvastatin 10 mg PO daily COPD/asthma - Continue home inhalers - DuoNebs every 6 hours as needed GERD - Continue Protonix twice daily Depression - Continue duloxetine 30 mg twice daily Diabetes mellitus - A1c 6.3% on 06/24/2020 - Patient home antiglycemic's were held 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 3 times daily as needed Bacterial sinusitis, resolved - Diagnosed as outpatient, started on Doxycycline several days ago and no current symptoms - Covid negative - d/c'd Doxycycline on 06/24 FEN/GI: DM2 DVT prophylaxis: SCDs Disposition: Med/surg, CM following, dispo plan is home with home health 0 or 07/08/20, pending availability of patient's family and home health services CODE STATUS: DNR/DNI (2) Foot drop, bilateral: (3) HTN (hypertension): (4) Hyperlipidemia: (5) Chronic radicular lumbar pain: (6) Edema: (7) COPD (chronic obstructive pulmonary disease): (8) GERD (gastroesophageal reflux disease): (9) Lumbar spinal stenosis: (10) Diabetes mellitus: (11) Asthma: (12) Fibromyalgia: Admission and Anticipated Discharge Date Admission Date: June 24, 2020 Supervising Physician Co-Signing Physician Notes Resident Physician Supervision Note: I independently interviewed and examined the patient and verified the segura history and physical, reviewed labs and image studies, discussed the case with the resident Dr. Delcid and agree with the findings and care plan. Subjective NAEO. Reports being sad this morning because it is the 2-year anniversary of her 's passing. However reports being motivated to work with PT and continue to improve after discharge. Review of Systems Constitutional: no fever and no chills Respiratory: no cough and no dyspnea Cardiovascular: no chest pain and no palpitations Gastrointestinal: no abdominal pain, no nausea and no vomiting Musculoskeletal: + back pain Physical Exam Constitutional: WD/WN, vitals as above + obese; no acute distress Respiratory: normal respiratory effort, lungs clear to auscultation Cardiovascular: RRR, no murmur, no edema Gastrointestinal (Abdomen): normal bowel sounds, soft, nontender, no hepatosplenomegaly Inspection/Auscultation: abdomen normal to inspection Results & Data Results & Data ([facility]) Vital Signs (Past 12 Hours) Vital Signs Temp Pulse Resp BP Pulse Ox 07/06/20 07:18 37.0 C 75 16 106/63 95 07/05/20 23:03 36.9 C 73 18 166/80 H 95 Resident Activity Tracking Resident Involvement: Resident Care Provided Care Provided: Adult Hospital Medicine (1) Lumbar spinal stenosis Neurogenic claudication status: unspecified Qualified Code(s): M48.061 - Spinal stenosis, lumbar region without neurogenic claudication
[2020-07-06] MEDS: INSULIN ASPART 100 UNITS/ML 3 ML PEN SC SCH ×4 (09:49→20:45)
[2020-07-06] MEDS: INSULIN GLARGINE SOLOSTAR 100 UNITS/ML 3 ML PEN SC SCH ×2 (09:50→20:44)
[2020-07-06] MEDS: FLUTICASONE/VILANTEROL 100/25MCG 14 PUFFS/INHALER INH SCH (09:52)
[2020-07-06] MEDS: ROSUVASTATIN CALCIUM 10 MG TAB PO SCH (09:53)
[2020-07-06] MEDS: PANTOprazole 40 MG TAB PO SCH ×2 (09:53→20:46)
[2020-07-06] MEDS: OXYBUTYNIN CHLORIDE XL 5 MG TABCR PO SCH (09:53)
[2020-07-06] MEDS: MICONAZOLE NITRATE POWDER 43 GM EXT SCH ×2 (09:54→20:43)
[2020-07-06] MEDS: DULoxetine HCL 30 MG CAP PO SCH (09:54)
[2020-07-06] MEDS: GABAPENTIN 300 MG CAP PO SCH ×2 (09:54→20:45)
[2020-07-06] MEDS: ACETAMINOPHEN 325 MG TAB PO PRN ×2 (10:02→16:09)
[2020-07-06] MEDS: DULoxetine HCL 60 MG CAP PO SCH (20:42)
[2020-07-06] MEDS: PRAMIPEXOLE DIHYDROCHLO 0.5 MG TAB PO SCH (20:45)
[2020-07-06] MEDS: MONTELUKAST SODIUM 10 MG TABLET PO SCH (20:46)
[2020-07-06] MEDS: traMADol HCL 50 MG TABLET PO PRN (22:02)
--- NOTE | 2020-07-07 07:52 | Hospitalist Progress Note ---
Date of Service July 07, 2020 Assessment & Plan (1) Ambulatory dysfunction: Antonieta Manning is a 69 y/o female with h/o diabetes, fibromyalgia, COPD, and severe spinal stenosis s/p surgical decompression who presented with worsening weakness and ambulatory dysfunction and associated pressure ulcers 2 weeks after discharge home from rehab. Home health pending. Bilateral lower extremity weakness - 2/2 severe spinal stenosis status post cervical decompression on 03/05/2020 - presented for severe deconditioning and unsafe home environment - 1 recent fall on 06/20 due to difficulty ambulating without assistance, unsafe to care for herself at home - severely impaired strength and sensation in bilateral LEs, cannot ambulate without assistance - PT/OT consulted, case management consulted for placement - pending - Case management working with patient. Per their note, she patient does not want discharge to inpatient rehab as she wants to go home and collect her belongings before she has to move out - Will be discharged under care of family - CM mentions today (07/07) that she will be able to be discharged on 07/09 Pressure ulcerations, buttock near gluteal cleft - No overlying cellulitis - Continue patient turning, skin care, pressure ulcer precautions - bandaged appeared clean, dry, intact this AM Constipation - KUB 06/27 without evidence of obstruction or stool impaction - s/p large, formed BM x1 on 06/29, abdominal pain resolved - Patient reports diarrhea resolved - continue to monitor Hypertension - Continue lisinopril 5 mg PO daily Hyperlipidemia - Rosuvastatin 10 mg PO daily COPD/asthma - Continue home inhalers - DuoNebs every 6 hours as needed GERD - Continue Protonix twice daily Depression - Continue duloxetine 30 mg twice daily Diabetes mellitus - A1c 6.3% on 06/24/2020 - Patient home antiglycemic's 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 3 times daily as needed Bacterial sinusitis, resolved - Diagnosed as outpatient, started on Doxycycline several days ago and no cur rent symptoms - Covid negative - d/c'd Doxycycline on 06/24 FEN/GI: DM2 DVT prophylaxis: SCDs Disposition: Med/surg, CM following, dispo plan is home with home health 07/09/20, pending availability of patient's family and home health services CODE STATUS: DNR/DNI (2) Foot drop, bilateral: (3) HTN (hypertension): (4) Hyperlipidemia: (5) Chronic radicular lumbar pain: (6) Edema: (7) COPD (chronic obstructive pulmonary disease): (8) GERD (gastroesophageal reflux disease): (9) Lumbar spinal stenosis: (10) Diabetes mellitus: (11) Asthma: (12) Fibromyalgia: Admission and Anticipated Discharge Date Admission Date: June 24, 2020 Supervising Physician Co-Signing Physician Notes I personally examined the patient and verified all segura points of history and exam, discussed case, and agree with decision making with Dr Estrada. no new complaints - working on plans for being safe/supported at home vitals noted nad heent nc at mmm breathing unlabored no accessory muscles good effort skin no rashes no pallor or icterus weakness/ambulatory dysfunction/spinal stenosis/falls - unable to find appropriate rehab type placement. working on rebuilding home situation to make it safe. otherwise as above Subjective No acute events overnight. Patient reports feeling overall well, just had some manageable back pain that she feels is from exerting herself more with PT. She reports that she is working on finding a family member or friend to help take care fo her after July 16, when her granddaughter would have to leave her. No other symptoms. No CP, palp, SOB, n/v, constipation, diarrhea. Review of Systems Review of Systems: All systems reviewed & are unremarkable except as noted in HPI & below Musculoskeletal: + back pain Physical Exam Constitutional: WD/WN, vitals as above + morbidly obese; no acute distress and not ill appearing Respiratory: normal respiratory effort, lungs clear to auscultation Cardiovascular: RRR, no murmur, no edema Heart Sounds: normal S1 and normal S2; no gallop, no murmur and no cardiac rub Gastrointestinal (Abdomen): normal bowel sounds, soft, nontender, no hepatosplenomegaly Skin: no rashes, warm and dry Psychiatric: A+Ox3, euthymic affect Orientation: alert and oriented x 3 Speech: normal rate/rhythm/volume of speech Results & Data Results & Data ([facility]) Vital Signs (Past 12 Hours) Vital Signs Temp Pulse Resp BP Pulse Ox 07/07/20 07:20 36.7 C 76 18 145/76 H 97 07/06/20 22:52 36.9 C 72 16 115/72 98 Resident Activity Tracking Resident Involvement: Resident Care Provided Care Provided: Adult Hospital Medicine (1) Lumbar spinal stenosis Neurogenic claudication status: unspecified Qualified Code(s): M48.061 - Spinal stenosis, lumbar region without neurogenic claudication
[2020-07-07] MEDS: OXYBUTYNIN CHLORIDE XL 5 MG TABCR PO SCH (09:23)
[2020-07-07] MEDS: DULoxetine HCL 30 MG CAP PO SCH (09:23)
[2020-07-07] MEDS: GABAPENTIN 300 MG CAP PO SCH ×2 (09:23→20:04)
[2020-07-07] MEDS: PANTOprazole 40 MG TAB PO SCH ×2 (09:23→20:06)
[2020-07-07] MEDS: ROSUVASTATIN CALCIUM 10 MG TAB PO SCH (09:23)
[2020-07-07] MEDS: FLUTICASONE/VILANTEROL 100/25MCG 14 PUFFS/INHALER INH SCH (09:28)
[2020-07-07] MEDS: MICONAZOLE NITRATE POWDER 43 GM EXT SCH ×2 (09:29→20:04)
[2020-07-07] MEDS: INSULIN GLARGINE SOLOSTAR 100 UNITS/ML 3 ML PEN SC SCH ×2 (09:29→21:02)
[2020-07-07] MEDS: INSULIN ASPART 100 UNITS/ML 3 ML PEN SC SCH ×4 (09:31→21:02)
[2020-07-07] MEDS: ACETAMINOPHEN 325 MG TAB PO PRN (14:54)
--- NOTE | 2020-07-07 16:01 | Billing Data ---
Date of Service July 07, 2020 Coding Level of Care Code 09319 Subseq Hosp Care Lvl 1
[2020-07-07] MEDS: DULoxetine HCL 60 MG CAP PO SCH (20:03)
[2020-07-07] MEDS: PRAMIPEXOLE DIHYDROCHLO 0.5 MG TAB PO SCH (20:04)
[2020-07-07] MEDS: MONTELUKAST SODIUM 10 MG TABLET PO SCH (20:05)
[2020-07-07] MEDS: traMADol HCL 50 MG TABLET PO PRN (23:13)
[2020-07-08] MEDS: ACETAMINOPHEN 325 MG TAB PO PRN (06:26)
--- NOTE | 2020-07-08 07:21 | Hospitalist Progress Note ---
Date of Service July 08, 2020 Assessment & Plan (1) Ambulatory dysfunction: Antonieta Manning is a 69 y/o female with h/o diabetes, fibromyalgia, COPD, and severe spinal stenosis s/p surgical decompression who presented with worsening weakness and ambulatory dysfunction and associated pressure ulcers 2 weeks after discharge home from rehab. Home health pending. Bilateral lower extremity weakness - 2/2 severe spinal stenosis status post cervical decompression on 03/05/2020 - presented for severe deconditioning and unsafe home environment - 1 recent fall on 06/20 due to difficulty ambulating without assistance, unsafe to care for herself at home - severely impaired strength and sensation in bilateral LEs, cannot ambulate without assistance - PT/OT consulted, case management consulted for placement - pending - Case management working with patient. Per their note, she patient does not want discharge to inpatient rehab as she wants to go home and collect her belongings before she has to move out - Will be discharged under care of family - CM mentioned on 07/07 that she will be able to be discharged on 07/09--plan remains unchanged Pressure ulcerations, buttock near gluteal cleft - No overlying cellulitis - Continue patient turning, skin care, pressure ulcer precautions - bandaged appeared clean, dry, intact this AM Constipation - KUB 06/27 without evidence of obstruction or stool impaction - s/p large, formed BM x1 on 06/29, abdominal pain resolved - Patient reports diarrhea resolved - continue to monitor Hypertension - Continue lisinopril 5 mg PO daily Hyperlipidemia - Rosuvastatin 10 mg PO daily COPD/asthma - Continue home inhalers - DuoNebs every 6 hours as needed GERD - Continue Protonix twice daily Depression - Continue duloxetine 30 mg twice daily Diabetes mellitus - A1c 6.3% on 06/24/2020 - Patient home antiglycemic's were held SURGICAL SPECIALIST - Weight-based insulin 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 3 times daily as needed Bacterial sinusitis, resolved - Diagnosed as outpatient, started on Doxycycline several days ago and no current symptoms - Covid negative - d/c'd Doxycycline on 06/24 FEN/GI: DM2 DVT prophylaxis: SCDs Disposition: Med/surg--CM following, dispo plan is home with home health 07/09/20, pending availability of patient's family and home health services CODE STATUS: DNR/DNI (2) Foot drop, bilateral: (3) HTN (hypertension): (4) Hyperlipidemia: (5) Chronic radicular lumbar pain: (6) Edema: (7) COPD (chronic obstructive pulmonary disease): (8) GERD (gastroesophageal reflux disease): (9) Lumbar spinal stenosis: (10) Diabetes mellitus: (11) Asthma: (12) Fibromyalgia: Admission and Anticipated Discharge Date Admission Date: June 24, 2020 Supervising Physician Co-Signing Physician Notes I personally examined the patient and verified all segura points of history and exam, discussed case, and agree with decision making with Dr Estrada. working on plans for home. otherwise no new issues. transport home tomorrow 1030a vitals noted nad heent nc at mmm breathing unlabored no accessory muscles good effort skin no rashes no pallor or icterus weakness/ambulatory dysfunction/spinal stenosis/falls - unable to find appropriate rehab type placement. working on rebuilding home situation to make it safe. has caregiver starting tomorrow. home PT. doing well enough w PT that she at least seems like she'll be able to keep self safe - hopefully then can progress from there. otherwise as above Subjective No events overnight. Patient feels well currently and has minimal back pain. She reports that she was able to find transportation for tomorrow and they will be by to pick her up at 10:30AM. She is eager to go home, though she expresses she would rather not be in her current situation. Has home PT services scheduled for 07/14. Review of Systems Review of Systems: All systems reviewed & are unremarkable except as noted in Subjective Physical Exam Constitutional: WD/WN, vitals as above + morbidly obese; no acute distress Respiratory: normal respiratory effort, lungs clear to auscultation Cardiovascular: RRR, no murmur, no edema Heart Sounds: normal S1 and normal S2 Gastrointestinal (Abdomen): normal bowel sounds, soft, nontender, no hepatosplenomegaly Skin: no rashes, warm and dry Psychiatric: A+Ox3, euthymic affect Results & Data Results & Data ([facility]) Vital Signs (Past 12 Hours) Vital Signs Temp Pulse Resp BP Pulse Ox 07/07/20 23:38 98 07/07/20 23:35 36.7 C 70 16 113/71 84 L Resident Activity Tracking Resident Involvement: Resident Care Provided Care Provided: Adult Hospital Medicine (1) Lumbar spinal stenosis Neurogenic claudication status: unspecified Qualified Code(s): M48.061 - Spinal stenosis, lumbar region without neurogenic claudication
[2020-07-08 08:02] LABS: BUN Creatinine Ratio 26.3 (10-20); Calcium 9.1 mg/dl (8.5-10.1); Est GFR (African American) 97.2; Est GFR (Non-African American) 83.8; Potassium 3.7 mmol/L (3.5-5.1)
[2020-07-08] MEDS: OXYBUTYNIN CHLORIDE XL 5 MG TABCR PO SCH (09:15)
[2020-07-08] MEDS: GABAPENTIN 300 MG CAP PO SCH ×2 (09:15→21:03)
[2020-07-08] MEDS: PANTOprazole 40 MG TAB PO SCH ×2 (09:15→21:03)
[2020-07-08] MEDS: CYCLOBENZAPRINE HCL 5 MG TAB PO PRN ×2 (09:15→20:59)
[2020-07-08] MEDS: FLUTICASONE/VILANTEROL 100/25MCG 14 PUFFS/INHALER INH SCH (09:16)
[2020-07-08] MEDS: INSULIN GLARGINE SOLOSTAR 100 UNITS/ML 3 ML PEN SC SCH ×2 (09:16→21:02)
[2020-07-08] MEDS: ROSUVASTATIN CALCIUM 10 MG TAB PO SCH (09:16)
[2020-07-08] MEDS: DULoxetine HCL 30 MG CAP PO SCH (09:16)
[2020-07-08] MEDS: INSULIN ASPART 100 UNITS/ML 3 ML PEN SC SCH ×4 (09:18→21:04)
[2020-07-08] MEDS: MICONAZOLE NITRATE POWDER 43 GM EXT SCH ×2 (09:19→21:01)
--- NOTE | 2020-07-08 16:12 | Billing Data ---
Date of Service July 08, 2020 Coding Level of Care Code 45124 Subseq Hosp Care Lvl 1
[2020-07-08] MEDS: DULoxetine HCL 60 MG CAP PO SCH (21:01)
[2020-07-08] MEDS: PRAMIPEXOLE DIHYDROCHLO 0.5 MG TAB PO SCH (21:02)
[2020-07-08] MEDS: MONTELUKAST SODIUM 10 MG TABLET PO SCH (21:03)
[2020-07-09] MEDS: ACETAMINOPHEN 325 MG TAB PO PRN ×2 (02:01→09:24)
--- NOTE | 2020-07-09 06:48 | Discharge Summary ---
Date of Service July 09, 2020 Admission HPI Per Admitting Provider Antonieta Manning is a 69-year-old female with a past medical history of diabetes, fibromyalgia, COPD, and severe spinal stenosis status post surgical decompression who presents with worsening weakness and ambulatory dysfunction and associated pressure ulcers 2 weeks after discharge home from rehab. Antonieta reports that she is here for inability to ambulate and ulcers on her buttock. She reports that she had surgery for severe spinal stenosis in [place] and was discharged to [facility] rehab following her surgery in February. At the time of discharge she was having lower extremity weakness bilaterally. She reports that at rehab she did "okay "and was starting to get a little bit stronger but still required 1 person assist and had trouble pivoting, but was able to do so sufficiently well to be discharged home on June 11. She reports since that time they have not been able to set her up with home therapy or home resources, and she has continued to weaken. On her granddaughter visited this weekend they are having difficulty helping her care and move around her trailer, she felt that Antonieta was too weak to care for herself at home and recommended she be seen in the emergency department. Patient denies new deficit, just chronic not improving weakness. She endorses foot drop bilaterally which is not improving. She had one sliding fall Tuesday, did not strike her head but slid to the floor and had difficulty standing. Denies weeping/discharge from the sores. She developed some sinus congestion 7 days ago and was placed on a 1 week course of doxycycline for sinusitis by her outpatient provider. Otherwise she feels that she has not had any sicklike symptoms, and denies fever, chills, sweats, shortness of breath, chest pain, difficulty breathing, cough, sputum production, burning with urination, inability to void, polyuria, abdominal pain. Has had multiple negative Covid tests including 1 on ER evaluation. She reports that her inability to ambulate well has caused her to develop buttock sores. Medical history: Reviewed Medications: Reviewed. Patient is not currently taking glimepiride which is on hold Surgical history: Reviewed, see below Allergies: Reviewed with patient, cetirizine and Metformin no anaphylaxis Family history: Noncontributory Social: Denies tobacco, alcohol, and recreational drug use. Lives in a trailer alone, has a landlord who checks in on her several times a day and a granddaughter who is visiting over the weekend. No recent sick contacts. Reports has had multiple negative tests for Covid including 1 on ER presentation today. Imaging review below MRI 03/02/2020:Progressive degenerative disc disease as described above. This is most pronounced at the L2-L3 and L3-L4 levels which demonstrates severe central canal narrowing. There is no appreciable thecal sac at the L3-L4 level which is therefore consistent with compression of the cauda equina. Surgical consultation recommended for possible decompression of the lumbar spine. No acute fracture or subluxation. Endplate edema at L3-L4 is nonspecific but favors the long-standing degenerative change. [facility] MRI Read 03/04/2020 CT Spine Lumbar w/o Contrast EXAMINATION: CT OF THE LUMBAR SPINE WITHOUT CONTRAST CLINICAL HISTORY: evaluate bone anatomy COMPARISON: Outside lumbar spine MRI dated 03/02/2020. TECHNIQUE: Routine helical CT of the lumbar spine without contrast, coronal and sagittal reconstructions. DOSE: Total Reported Dose Length Product (DLP) = 1640.01 mGy.cm FINDINGS: Alignment: Minimal anterolisthesis of L3 on L4. No other subluxation. Decreased AP diameter of the canal secondary to shortened pedicles. Vertebrae: No compression fractures or other fractures. Paraspinal space: Unremarkable. Visualized retroperitoneal: Unremarkable. Axial interbody analysis: T12-L1: Bilateral facet and ligamentous hypertrophy. Shortened pedicles. Minimal central canal stenosis and minimal bilateral neural foraminal stenosis. L1-L2: Bilateral facet and ligamentous hypertrophy. Shortened pedicles. Minimal central canal stenosis and minimal bilateral neural foraminal stenosis. L2-L3: Mild annular bulge with severe facet and ligamentous hypertrophy. Shortened pedicles. There is moderate to severe/severe central canal stenosis and mild to moderate bilateral neural foraminal stenosis. L3-L4: Posterior spondylitic ridging and diffuse annular bulge with severe bilateral facet and ligamentous hypertrophy. Shortened pedicles. Severe central canal stenosis with moderate to severe bilateral neural foraminal stenosis. L4-L5: Posterior spondylitic ridging and diffuse annular bulge. Bilateral facet and ligamentous hypertrophy. Shortened pedicles. Moderate/moderate to severe central canal stenosis. Moderate bilateral neural foraminal stenosis. L5-S1: Bilateral facet hypertrophy. No central canal stenosis. Minimal to mild bilateral neural foraminal stenosis. IMPRESSION: Severe spinal canal stenosis that is multifactorial in nature. This is greatest at L3/L4 with similar but slightly milder changes at L2/L3 and L4/L5. No acute bony abnormality. Post Surgical XR Reason For Exam Lumbar Fusion XR Spine Lumbosacral 2 or 3 Views FINDINGS: AP and lateral views of the lumbar spine show transitional anatomy with partial sacralization of L5 on the left. Utilizing this numbering system there are postoperative changes of L2-L4 posterior decompression with instrumented interbody and posterior fusion. Less than 1 mm of radiolucency around the L2 pedicle screws. Unchanged anterolisthesis of L3 on L4. Severe disc degenerative change at L4-L5 and L5-S1. Anterior osteophytes in the lower thoracic spine with multilevel disc degenerative changes. Atherosclerotic calcification of the aorta. Moderate degenerative change of the sacroiliac joints and hips. IMPRESSION: L2-L4 posterior decompression and instrumented interbody and posterior fusion. Minimal radiolucency around the L2 pedicle screws-attention on follow-up imaging is recommended to evaluate for loosening. [facility] Note 06/10/2020: PLAN: At this time, we discussed with the patient today that we agree with her that she does still need dedicated rehabilitation for her lower extremities, par ticularly for leg strengthening and gait training. We have counseled her that muscle strengthening can take weeks to months post surgery, but we cannot guarantee that her function will be restored. We have also instructed her that good diabetic control is important for nerve health. She should continue calcium and vitamin D supplementation. Handout was provided. We also provided her with a home physical therapy order, so that there should not be any delay in her getting home therapy when she is formally discharged from the facility, where she is residing. We have asked her to call with any questions or concerns, and we will plan to see her back in 4 months with x-rays of the lumbar spine including AP and lateral views upon arrival. Dr. Alexandre was present for the treatment and p Admission Exam Per Admitting Provider General: A&Ox3. NAD. Cooperative. Obese. Skin: Right buttock near gluteal cleft with 2X superficial skin erosion, no purulence or spreading erythema. HEENT: Atraumatic, normocephalic. Acuity grossly intact. Hearing grossly intact. Pupils equal and reactive to light and accommodation. Pulm: CTAB A&P. -wheezes, -rales, -rhonchi. Symmetrical chest rise. No increase work of breathing. No respiratory distress. Cardiac: RRR, -mrg. Radial pulses intact and symmetrical. Abdominal: Healed midline incision from prior hysterectomy present. Nontender, nondistended, soft. BS present. CRANIAL NERVES: II: Pupils equal and reactive, no relative afferent pupillary defect, no VF cuts III, IV, : EOM intact, no gaze preference or deviation, no nystagmus. V: normal sensation in V1, V2, and V3 segments bilaterally VII: no asymmetry, no nasolabial fold flattening VIII: normal hearing to speech IX, X: normal palatal elevation, no uvular deviation XI: 5/5 head turn and 5/5 shoulder shrug bilaterally XII: midline tongue protrusion MOTOR: RUE: 5/5 Shoulder internal rotation, external rotation, flexion, extension, abduction, adduction 5/5 Elbow flexion/extension, wrist flexion/extension 5/5 food storeroom clerk strength, finger flexion/extension, interosseus LUE: 5/5 Shoulder internal rotation, external rotation, flexion, extension, abduction, adduction 5/5 Elbow flexion/extension, wrist flexion/extension 5/5 food storeroom clerk strength, finger flexion/extension, interosseus LE: Both feet in foot drop boot. 2+ ankle dorsiflexion/1+ ankle plantarflexion bilaterally, 4 - hip flexion bilaterally, 4/5 knee flexion/extension bilaterally. SENSORY: Normal to touch in upper and lower extremities without deficit or asymmetry Principal Diagnosis Ambulatory dysfunction Discharge Exam Constitutional WD/WN, vitals as above + morbidly obese; no acute distress Respiratory normal respiratory effort, lungs clear to auscultation Cardiovascular RRR, no murmur, no edema Heart Sounds: normal S1 and normal S2 Gastrointestinal (Abdomen) normal bowel sounds, soft, nontender, no hepatosplenomegaly Psychiatric A+Ox3, euthymic affect Discharge Data Allergies Allergy/AdvReac Type Severity Reaction Status Date / Time cetirizine Allergy Intermediate RASH Verified 06/18/20 11:32 metformin AdvReac Unknown GI upset Verified 06/18/20 11:32 Consultations 06/23/20 18:18 ED Decision to Admit Stat 06/24/20 00:26 Consult Case Management - Discharge Planning Routine Hospital Course (1) Ambulatory dysfunction: Antonieta Manning is a 69 y/o female with h/o diabetes, fibromyalgia, COPD, and severe spinal stenosis s/p surgical decompression who presented with worsening weakness and ambulatory dysfunction and associated pressure ulcers 2 weeks after discharge home from rehab. Bilateral lower extremity weakness - secondary to severe spinal stenosis status post cervical decompression on 03/05/2020 - presented for severe deconditioning and unsafe home environment - 1 recent fall on 06/20 due to difficulty ambulating without assistance, unsafe to care for herself at home - severely impaired strength and sensation in bilateral LEs, cannot ambulate without assistance - PT/OT consulted, case management consulted for placement - pending - Case management working with patient. Per their note, she patient does not want discharge to inpatient rehab as she wants to go home and collect her belongings before she has to move out - Will be discharged under care of family with home health services Pressure ulcerations, buttock near gluteal cleft - No overlying cellulitis - Continued patient turning, skin care, pressure ulcer precautions - bandage appeared clean, dry, intact Constipation - KUB 06/27 without evidence of obstruction or stool impaction - s/p large, formed BM x1 on 06/29, abdominal pain resolved - Patient reported diarrhea resolved Hypertension - Continued lisinopril 5 mg PO daily Hyperlipidemia - Rosuvastatin 10 mg PO daily COPD/asthma - Continued home inhalers - DuoNebs every 6 hours as needed GERD - Continued Protonix twice daily Depression - Continued duloxetine 30 mg twice daily Diabetes mellitus - A1c 6.3% on 06/24/2020 - Patient's home antiglycemics were held LEASING ASSISTANT - Weight-based insulin glargine 13 units twice daily, aspart SSI correction factor 30 ratio 13 Chronic pain/fibromyalgia - Tylenol 650 mg every 4 hours as needed - Cyclobenzaprine 5 mg p.o. 3 times daily as needed Bacterial sinusitis, resolved - Diagnosed as outpatient, started on Doxycycline several days ago and no current symptoms - Covid negative - d/c'd Doxycycline on 06/24 FEN/GI: DM2 Disposition: Home--Home Health Services CODE STATUS: DNR/DNI (2) Foot drop, bilateral: (3) HTN (hypertension): (4) Hyperlipidemia: (5) Chronic radicular lumbar pain: (6) Edema: (7) COPD (chronic obstructive pulmonary disease): (8) GERD (gastroesophageal reflux disease): (9) Lumbar spinal stenosis: (10) Diabetes mellitus: (11) Asthma: (12) Fibromyalgia: Total Time Total Time Spent Total Time Spent (In Minutes): see attending attestation Discharge Plan Discharge Items Patient Disposition: Home - Home Health Services Reason For Visit: SKIN ULCERATION, AMBULATORY DYSFUNCTION Discharge Diagnosis: Ambulatory dysfunction Activity: Per Instructions section Non-emergency contact: Primary Care Provider Call non-emergency contact if: you have any medication questions and your symptoms worsen Follow-up/Referrals: Chava Ronquillo MD [Primary Care Provider] - 07/16/20 10:30 am (Your appointment will be with Marissa Cabello.) Diet: Carb Consistent or DM2 Addtl Attending Provider Instructions: You presented to [facility] due to worsening weakness and ambulatory dysfunction. While here you worked with physical therapy and occupational therapy. You will be discharged home with home rehabilitation services with whom you will be working further on your physical rehabilitation as well as your ability to complete your activities independently. Please follow up with your primary care provider to further discuss management of your chronic conditions. Pending Studies at Discharge: No Stand-Alone Forms: My [facility] Matchup, Smoking Cessation Medications and DC Order Prescriptions: Continued pantoprazole 40 mg tablet,delayed release (DR/EC) 40 mg PO BID Qty: 180 RF: 3 lisinopril 5 mg tablet 5 mg PO DAILY Qty: 90 RF: 3 albuterol sulfate 2.5 mg /3 mL (0.083 %) solution for nebulization 2.5 mg INH QID PRN (Reason: shortness of breath or wheezing) Qty: 90 RF: 3 cholecalciferol (vitamin D3) 1,000 unit capsule 3,000 units PO QAM RF: 0 oxybutynin chloride 10 mg tablet extended release 24hr 10 mg PO DAILY RF: 0 cyclobenzaprine 5 mg tablet 5 mg PO TID PRN (Reason: Spasms) RF: 0 gabapentin 300 mg capsule 300 mg PO BID RF: 0 rosuvastatin 10 mg tablet 10 mg PO DAILY RF: 0 duloxetine 30 mg capsule,delayed release(DR/EC) 30 mg PO BID Qty: 30 RF: 0 tramadol 50 mg tablet 100 mg PO Q6H PRN (Reason: pain) Qty: 90 RF: 0 glimepiride [Amaryl] 1 mg tablet 1 mg PO QAM Qty: 90 RF: 3 albuterol sulfate 90 mcg/actuation HFA aerosol inhaler 2 puffs INH Q6H PRN (Reason: shortness of breath or wheezing) Qty: 18 RF: 3 potassium chloride 10 mEq capsule, extended release 10 meq PO BID Qty: 30 RF: 2 acetaminophen [Tylenol] 325 mg Tablet 325 mg PO QID PRN (Reason: Pain) RF: 0 pramipexole [Mirapex] 0.5 mg tablet 0.5 mg PO HS RF: 0 montelukast [Singulair] 10 mg tablet 10 mg PO HS RF: 0 biotin 5,000 mcg Tablet,Disintegrating 5,000 mcg PO QAM RF: 0 fluticasone propionate 50 mcg/actuation spray,suspension 2 sprays INTNAS DAILY PRN (Reason: NASALL CONGESTION) RF: 0 furosemide [Lasix] 40 mg tablet 40 mg PO QAM RF: 0 Premarin 0.625 mg/gram cream 0.3125 mg vaginal 2XWK RF: 0 Breo Ellipta 100-25 mcg/dose blister with device 1 inh INHALATION DAILY RF: 0 lisinopril 5 mg tablet 5 mg PO DAILY RF: 0 potassium chloride 10 mEq capsule, extended release 10 meq PO BID RF: 0 Discontinued doxycycline hyclate 100 mg capsule 100 mg PO BID RF: 0 Discharge Orders: Discharge Order (Routine); Ordered 07/09/20 Ordered By: Tiburcio Martin/Other Patient Handouts: Preventing Deep Vein Thrombosis Admission Data Admit Date/Time: 06/24/20 18:57 Attending Provider: Darion Henriquez Admit Provider: Tico Perez Primary Care Provider: Chava Ronquillo Other Providers: Andrew Jiang ; Chirag Lockwood ; [facility] ; Trini Ralph [facility] ; Jeramy Rivera ; Jeremy Paola,[facility] ; Obdulio Delcid Other Interventions: Discharge Summary Assessment (RN) Last Done: 07/09/20 07:30 Supervising Physician Co-Signing Physician Notes Resident Physician Supervision Note: I was present with Dr. Tiburcio Estrada during the history and exam. I discussed the case with the resident and agree with the findings and plan as documented in the note. Any exceptions or clarifications are listed here: none Patient was seen prior to her discharge. She is planning on going home with outpatient PT OT and eventually moving into [facility] which sounds to be an assisted living facility. She states she is making good progress with ambulation with assistive device such as a walker. Her medical problems including diabetes depression and COPD are all stable at this time. Physically she is in no particular distress her respiratory status is stable her pain seems to be well controlled. Patient stable for discharge to home with eventual transition to a supportive living environment Documented By: Darion Henriquez MD Resident Activity Tracking Resident Involvement: Resident Care Provided Care Provided: Adult [facility] Medicine
[2020-07-09] MEDS: traMADol HCL 50 MG TABLET PO PRN (07:36)
[2020-07-09] MEDS: FLUTICASONE/VILANTEROL 100/25MCG 14 PUFFS/INHALER INH SCH (09:15)
[2020-07-09] MEDS: PANTOprazole 40 MG TAB PO SCH (09:16)
[2020-07-09] MEDS: OXYBUTYNIN CHLORIDE XL 5 MG TABCR PO SCH (09:16)
[2020-07-09] MEDS: GABAPENTIN 300 MG CAP PO SCH (09:16)
[2020-07-09] MEDS: ROSUVASTATIN CALCIUM 10 MG TAB PO SCH (09:16)
[2020-07-09] MEDS: DULoxetine HCL 30 MG CAP PO SCH (09:16)
[2020-07-09] MEDS: MICONAZOLE NITRATE POWDER 43 GM EXT SCH (09:17)
[2020-07-09] MEDS: INSULIN ASPART 100 UNITS/ML 3 ML PEN SC SCH (09:34)
[2020-07-09] MEDS: INSULIN GLARGINE SOLOSTAR 100 UNITS/ML 3 ML PEN SC SCH (09:34)
[2020-07-09 10:50] LABS: BUN Creatinine Ratio 24.4 (10-20); Calcium 8.9 mg/dl (8.5-10.1); Creatinine Clr Calc Pharmacy 87.5 ml/min; Est GFR (African American) 85.8; Potassium 3.6 mmol/L (3.5-5.1)
--- NOTE | 2020-07-09 12:39 | Billing Data ---
Date of Service July 09, 2020 It required greater than 30 minutes to prepare this patient for discharge Coding Level of Care Code D/C Day Management >30 mins
== END 2020-07-09 10:30 | disposition home health service (06) | DRG 552 ==
LOC: 2N 15:31 → ED 15:31 → SUATTDRO 21:11 → 2N 23:44 → 3N 06-24 18:39 → SUATTDRO 06-24 18:57 → 3N 06-27 15:50

== ENCOUNTER 2021-06-29 12:15 | Inpatient (IN) ==
[2021-06-29] MEDS ORDERED: SODIUM CHLORIDE 0.9% 1000ML 1,000 ML IV SCH (12:30)
[2021-06-29] MEDS ORDERED: DEXAMETHASONE SOD INJ 4 MG/ML VIAL IV STA (12:30)
[2021-06-29 13:29] LABS: Basophils # (auto) 0.02 K/uL (0-0.2); Basophils % (auto) 0.4 %; Hematocrit (blood only) 38.7 % (37-47); Hemoglobin 12.6 g/dL (12.0-16.0); Immature Granulocytes # (auto) 0.02 K/uL (0.00-0.02); Immature Granulocytes % (auto) 0.4 %; Lymphocytes # (auto) 1.51 K/uL (1.2-3.4); Lymphocytes % (auto) 26.7 %; Mean Corpuscular Hgb Conc 32.6 g/dL (32-36); Mean Corpuscular Volume 95.3 fL (80-100); Mean Platelet Volume 9.8 fL (7.4-10.4); Monocytes # (auto) 0.57 K/uL (0.11-0.59); Monocytes % (auto) 10.1 %; Neutrophils # (auto) 3.54 K/uL (1.4-6.5); Neutrophils % (auto) 62.4 %; Platelet Count 148 K/uL (130-400); RDW Coefficient of Variation 14.2 % (11.5-14.5); RDW Standard Deviation 49.1 fL (36.4-46.3); Red Blood Count 4.06 M/uL (4.2-5.4); White Blood Count 5.66 K/uL (4.8-10.8)
--- NOTE | 2021-06-29 13:31 | XRay Report ---
XR chest 1V portable HISTORY: 70 years-old Female SEPSIS acute sepsis COMPARISON: Chest radiograph 06/23/2020 TECHNIQUE: Portable AP view of the chest FINDINGS: Cardiac silhouette is moderately enlarged. Pulmonary vascular congestion with reticular interstitial opacities. Mild intermixed airspace opacities. No pneumothorax or large pleural effusion. Mild bibasi lar densities. Degenerative changes of the spine and right shoulder. Reverse left shoulder total join t arthroplasty. Surgical anchors of the right humeral head. IMPRESSION: Cardiomegaly with pulmonary vascular congestion, reticular interstitial opacities and int ermixed airspace densities suggestive of pulmonary edema versus interstitial pneumonia ACT 112: Negative or not required by law. The above report was generated using voice recognition software. It may contain grammatical, syntax o r spelling errors. Electronically signed by: Emerson Garner M.D. 06/29/2021 1:30 PM
[2021-06-29 13:39] LABS: HCO3 VBG 29 mmol/L; PCO2 VBG 51 mmHg (38-50); PO2 VBG 22 mmHg; pH VBG 7.38 (7.36-7.41)
[2021-06-29 13:41] LABS: Partial Thromboplastin Ratio 1.2; Partial Thromboplastin Time 32.3 Seconds (21.0-31.0); Prothrombin Time 9.9 Seconds (9.0-12.0)
[2021-06-29 13:47] LABS: Alanine Aminotransferase 25 U/L (12-78); Albumin Level 2.7 gm/dl (3.4-5.0); Aspartate Aminotransferase 54 U/L (15-37); BUN Creatinine Ratio 17.3 (10-20); Blood Urea Nitrogen 19 mg/dl (7-18); Calcium 8.4 mg/dl (8.5-10.1); Carbon Dioxide 26 mmol/L (21-32); Chloride 95 mmol/L (98-107); Creatinine Clr Calc Pharmacy 58.9 ml/min; Est GFR (African American) 58.5 ml/min; Est GFR (Non-African American) 50.4 ml/min; Glucose 138 mg/dl (70-99); Magnesium 1.8 mg/dl (1.8-2.4); Potassium 4.3 mmol/L (3.5-5.1); Sodium 130 mmol/L (136-145)
[2021-06-29 13:51] LABS: Albumin Globulin Ratio 0.5 (0.9-2); Alkaline Phosphatase 54 U/L (45-117); Bilirubin,Total 0.4 mg/dl (0.2-1); Globulin 5.6 gm/dl (2.5-4.0); Total Protein 8.3 gm/dl (6.4-8.2); Troponin I < 0.015 ng/ml (0-0.045)
[2021-06-29 13:54] LABS: Influenza A virus by PCR Negative (Negative); Influenza B virus by PCR Negative (Negative)
[2021-06-29 14:08] LABS: Oxygen Saturation VBG < 60.0 %
[2021-06-29] MEDS ORDERED: OPTIRAY 320 125ml IV ONE (14:45)
--- NOTE | 2021-06-29 15:08 | Emergency Department Note ---
History of Present Illness General Chief Complaint: Illness Time Seen by Provider: 06/29/21 12:33 History of Present Illness Provider Complaint: shortness of breath Onset (ago): day(s) (1) Severity: severe Consistency/Duration: + constant Relieved By: + nothing Exacerbated By: + exertion and + coughing Known history of: asthma Associated symptoms: + cough, + sputum production, + nausea/vomiting and + abdominal pain; no wheezing, no polyuria, no palpitations, no hemoptysis or no lightheadedness HPI Narrative: Patient states she had 1 dose of the COVID-19 vaccine [email or web address] done 1 month ago and states that her son who is her primary supervisor [employer] tested positive for COVID-19 3 days ago. Patient does wear oxygen at night but does not usually wear it at the daytime. Home Medications Medication Instructions Recorded Confirmed Type cholecalciferol (vitamin D3) 25 3,000 units PO QAM cap 01/26/19 06/29/21 History mcg (1,000 unit) capsule biotin 5,000 mcg disintegrating 5,000 mcg PO QAM 04/18/19 06/29/21 History tablet acetaminophen 325 mg tablet 325 mg PO QID PRN 02/28/20 06/29/21 History (Tylenol) pramipexole 0.5 mg tablet (Mirapex) 0.5 mg PO HS #90 tab 08/25/20 06/29/21 Rx montelukast 10 mg tablet 10 mg PO HS #90 tab 10/20/20 06/29/21 Rx (Singulair) furosemide 40 mg tablet (Lasix) 40 mg PO QAM #90 tab 10/24/20 06/29/21 Rx gabapentin 300 mg capsule 300 mg PO BID #60 cap 11/07/20 06/29/21 Rx albuterol sulfate 2.5 mg INH QID PRN #90 ml 01/05/21 06/29/21 Rx albuterol sulfate 90 mcg/actuation 2 puff INH Q6H PRN #18 gm 01/05/21 06/29/21 Rx aerosol inhaler duloxetine 30 mg capsule,delayed 30 mg PO BID #180 cap 04/02/21 06/29/21 Rx release lorazepam 0.5 mg tablet 0.5 mg PO BID PRN #30 tab 04/02/21 06/29/21 Rx tramadol 50 mg tablet 100 mg PO Q6H PRN #90 tab 04/02/21 06/29/21 Rx potassium chloride 10 mEq 10 meq PO BID #60 cap 04/30/21 06/29/21 Rx capsule,extended release baclofen 10 mg tablet 10 mg PO BID #60 tab 05/01/21 06/29/21 Rx fluticasone furoate 100 1 inh INHALATION HS 05/09/21 06/29/21 History mcg-vilanterol 25 mcg/dose inhalation powder (Breo Ellipta) pantoprazole 40 mg tablet,delayed 40 mg PO BID 05/09/21 06/29/21 History release rosuvastatin 10 mg tablet 10 mg PO QAM 05/09/21 06/29/21 History fluticasone propionate 50 2 spray INTNAS DAILY PRN #15.8 ml 05/13/21 06/29/21 Rx mcg/actuation nasal spray,suspension mirabegron 50 mg tablet,extended 50 mg PO DAILY #30 tab 06/16/21 06/29/21 Rx release 24 hr amoxicillin 875 mg-potassium 1 tab PO BID 10 Days #20 tab 06/23/21 06/29/21 Rx clavulanate 125 mg tablet (Augmentin) Allergies Allergy/AdvReac Type Severity Reaction Status Date / Time cetirizine Allergy Intermediate RASH Verified 06/12/21 10:17 metformin AdvReac Unknown GI upset Verified 06/12/21 10:17 sulfamethoxazole AdvReac severe dry Verified 06/12/21 10:17 [From Bactrim] mouth trimethoprim [From Bactrim] AdvReac severe dry Verified 06/12/21 10:17 mouth Past Med/Surg History Medical History Ambulatory dysfunction Anxiety Asthma stable COPD (chronic obstructive pulmonary disease) Stable and controlled Depressive disorder Diabetes mellitus NIDDM- stable and controlled per patient Discoloration of skin of lower leg Edema Fibromyalgia Constant pain Foot drop, bilateral Gastroparesis GERD (gastroesophageal reflux disease) controlled History of ear infection hx recurrent ear infections s/p drainage tube in left ear - no recent issues History of urinary incontinence chronic History of urinary urgency chronic Hyperlipidemia Hypertension Lumbar spinal stenosis Severe at L3-4 Mixed conductive and sensorineural hearing loss Morbid obesity On home oxygen therapy 3LPM at HS Pain of lower extremity Restless leg syndrome Right leg weakness Severe muscle deconditioning Sleep apnea CPAP Spinal stenosis Unable to care for self Surgical History H/O: hysterectomy History of cholecystectomy History of esophagogastroduodenoscopy (EGD) History of left knee replacement History of left shoulder replacement History of repair of right rotator cuff History of right knee joint replacement History of surgery on upper extremity LET ARM ABSCESS History of tonsillectomy History of tooth extraction all teeth Hx of colonoscopy Family History Brother Family history of diabetes mellitus Sister Family history of diabetes mellitus Breast cancer Mother Family history of diabetes mellitus Stroke Aunt Family history of diabetes mellitus Father Myocardial infarction Other Coronary heart disease Denies family history of Ovarian cancer Prostate cancer Colorectal cancer Social History Smoking Status: Never smoker Second Hand Exposure: Yes; Hx Alcohol Use: No Hx Substance Use: No Preferred Language: Kittitian Communication Ability: Effective Visual Impairment: No Limitations Hearing Ability: Hard of Hearing [employer]arf Lab[employer] Required: No Beliefs That Will Affect Care: None marital status: / Current Living Situation: Alone Feels Safe at Home: Yes Childhood Exposure to Second-Hand Smoke: Yes caffeine: Yes (tea every morning) Dental Care, Regularly: No Physical Activity Frequency: Does not Exercise Seatbelt Use: always Sunscreen Use: Yes Assistive Devices: Glasses, Oxygen - at Night, Walker and Wheelchair Review of Systems A total of 10 systems reviewed and were otherwise negative Physical Exam Vital Signs: Vital Signs - 24 hr 06/29/21 12:22 06/29/21 13:33 06/29/21 15:29 Temperature 36.7 C Temperature Source Oral Pulse Rate 79 Pulse Rate [Left F thomas] 78 81 Pulse Rhythm Regular Pulse Strength Normal Respiratory Rate 22 24 24 Respiratory Effort / Characteristics Non-Labored Sponta neous Respiratory Depth Normal Respiratory Patter n Regular Blood Pressure 93/50 L Blood Pressure [Le ft Arm] 104/60 93/45 L Blood Pressure Edna n 64 Blood Pressure Edna n [Left Arm] 74 61 Blood Pressure Pos ition Sitting Blood Pressure Pos ition [Left Arm] Sitting Pulse Oximetry 80 L 96 93 Oxygen Delivery Me thod Room Air Nasal Cannula Nasal Cannula Oxygen Flow Rate 4 4 Sepsis Recent Feve r Within 48 Hours No Sepsis New/Unexpla ined Change in Men robert Status No Sepsis Action Take n by Nursing No Action Required Physical Exam: Physical Exam GENERAL: She is oriented to person, place, and time. She appears well-developed and well-nourished. She does not appear distressed. HENT: Exam performed. -Head: Normocephalic and atraumatic. -Right Ear: External ear normal. No mastoid tenderness. -Left Ear: External ear normal. No mastoid tenderness. -Mouth/Throat: The oropharynx is clear and moist. No trismus in the jaw. No dental abscesses or uvula swelling. No oropharyngeal exudate or tonsillar abscesses. EYES: Conjunctivae and EOM are normal. Pupils are equal, round, and reactive to light. Right eye exhibits no discharge. Left eye exhibits no discharge. No scleral icterus. NECK: Normal range of motion. Neck supple. No JVD present. No spinous process tenderness present. No carotid bruit present. No rigidity. No tracheal deviation and normal range of motion present. No Brudzinski's sign and no Kernig's sign noted. CV: Normal rate, regular rhythm, normal heart sounds and intact distal pulses. There is no peripheral edema. Palpable radial pulses bue. PULM/CHEST: Diminished breath sounds bilaterally. Rhonchi bilaterally. ABD: The abdomen is soft morbidly obese Bowel sounds are normal. She has no distension. No mass is present. There is no tenderness. There is no rebound, no guarding, no Gandara's sign and no tenderness at McBurney's point. Rovsig negative MUSC/SKEL: Normal range of motion. There is no peripheral edema, tenderness or deformity. LYMPH: No cervical adenopathy. NEURO: She is alert and oriented to person, place, and time. She has normal strength. No cranial nerve deficit or sensory deficit. Coordination and gait normal. GCS eye subscore is 4. GCS verbal subscore is 5. GCS motor subscore is 6. Cerebellar tests wnl. SKIN: Skin is warm and dry. She is not diaphoretic. PSYCH: She has a normal mood and affect. Behavior is normal. Judgment and thought content normal. Course Course 1233: The patient was evaluated in room B6. A complete history and physical exam was performed Cardiac monitoring: An order was placed for continuous cardiac monitoring. The monitor shows a rate of 80 with sinus rhythm Patient hypoxic on room air. Patient most likely is COVID-19 based off the history, Decadron 6 mg IV push ordered for the patient. 1642: Vital signs stable on supplemental oxygen via nasal cannula. Labs within normal limits. Imaging shows findings consistent with Covid pneumonia. No PE. CT of the abdomen is negative for any acute surgical emergency. Patient will be admitted to the [place] [facility] hospitalist team Dr. Longoria notified. Administered Medications Remdesivir 200 mg/ Sodium (Chloride) 250 mls @ 125 mls/hr IV ONE STA; Protocol Stop: 06/29/21 19:09 Last Admin: 06/29/21 17:32 Dose: 125 mls/hr Documented by: [id number] Discontinued Medications Dexamethasone (Dexamethasone Sod Inj 4 Mg/Ml Vial) 6 mg IV NOW STA Stop: 06/29/21 12:31 Last Admin: 06/29/21 13:32 Dose: 6 mg Documented by: [id number] Sodium Chloride (Nss 1000ml) 1,000 mls @ 999 mls/hr IV .Q1H1M DEDE Stop: 06/29/21 13:30 Last Infusion: 06/29/21 15:31 Dose: 0 mls/hr Documented by: [id number] Admin: 06/29/21 13:32 Dose: 999 mls/hr Documented by: [id number] Ioversol (Optiray 320 125ml) 117 ml IV ONCE ONE Stop: 06/29/21 14:46 Last Admin: 06/29/21 14:46 Dose: 117 ml Documented by: [id number] Medical Decision Making Laboratory Data Result diagrams: 06/29/21 13:05 06/29/21 13:05 Lab Results 06/29/21 06/29/21 06/29/21 Range/Units 13:02 13:02 13:02 WBC (4.8-10.8) K/uL RBC (4.2-5.4) M/uL Hgb (12.0-16.0) g/dL Hct (37-47) % MCV (80-100) fL MCH (25-34) pg MCHC (32-36) g/dL RDW Std Deviation (36.4-46.3) fL RDW Coeff of Shant (11.5-14.5) % Plt Count (130-400) K/uL MPV (7.4-10.4) fL Immature Gran % (Auto) % Neut % (Auto) % Lymph % (Auto) % [place] % (Auto) % Eos % (Auto) % Baso % (Auto) % Neut # (Auto) (1.4-6.5) K/uL Lymph # (Auto) (1.2-3.4) K/uL [place] # (Auto) (0.11-0.59) K/uL Eos # (Auto) (0-0.5) K/uL Baso # (Auto) (0-0.2) K/uL Immature Gran # (Auto) (0.00-0.02) K/uL PT (9.0-12.0) Seconds INR (0.9-1.1) APTT (21.0-31.0) Seconds PTT Ratio Fibrinogen (184-400) mg/dl VBG pH (7.36-7.41) VBG pCO2 (38-50) mmHg VBG pO2 mmHg VBG HCO3 mmol/L VBG O2 Saturation % VBG Base Excess mEq/L Barometric Pressure mm/Hg Sodium (136-145) mmol/L Potassium (3.5-5.1) mmol/L Chloride (98-107) mmol/L Carbon Dioxide (21-32) mmol/L Anion Gap (3-11) BUN (7-18) mg/dl Creatinine (0.6-1.2) mg/dl Est Cr Clr Drug Dosing ml/min Est GFR ( Amer) ml/min Est GFR (Non-Af Amer) ml/min BUN/Creatinine Ratio (10-20) Glucose (70-99) mg/dl Lactate (0.4-2.0) mmol/L Calcium (8.5-10.1) mg/dl Magnesium (1.8-2.4) mg/dl Ferritin (8-388) ng/ml Total Bilirubin (0.2-1) mg/dl AST (15-37) U/L ALT (12-78) U/L Alkaline Phosphatase (45-117) U/L Lactate Dehydrogenase (84-246) U/L Troponin I (0-0.045) ng/ml C-Reactive Protein (0-0.29) mg/dl NT-Pro-B Natriuret Pep (0-900) pg/ml Total Protein (6.4-8.2) gm/dl Albumin (3.4-5.0) gm/dl Globulin (2.5-4.0) gm/dl Albumin/Globulin Ratio (0.9-2) Procalcitonin (0-0.5) ng/ml COVID-19 Eval Order Covid19 at [facility] SARS-CoV-2 (PCR) POSITIVE A* (Negative) Influ A Molecular Assay Negative (Negative) Influ B Molecular Assay Negative (Negative) 06/29/21 06/29/21 06/29/21 Range/Units 13:05 13:05 13:05 WBC 5.66 (4.8-10.8) K/uL RBC 4.06 L (4.2-5.4) M/uL Hgb 12.6 (12.0-16.0) g/dL Hct 38.7 (37-47) % MCV 95.3 (80-100) fL MCH 31.0 (25-34) pg MCHC 32.6 (32-36) g/dL RDW Std Deviation 49.1 H (36.4-46.3) fL RDW Coeff of Shant 14.2 (11.5-14.5) % Plt Count 148 (130-400) K/uL MPV 9.8 (7.4-10.4) fL Immature Gran % (Auto) 0.4 % Neut % (Auto) 62.4 % Lymph % (Auto) 26.7 % [place] % (Auto) 10.1 % Eos % (Auto) 0.0 % Baso % (Auto) 0.4 % Neut # (Auto) 3.54 (1.4-6.5) K/uL Lymph # (Auto) 1.51 (1.2-3.4) K/uL [place] # (Auto) 0.57 (0.11-0.59) K/uL Eos # (Auto) 0.00 (0-0.5) K/uL Baso # (Auto) 0.02 (0-0.2) K/uL Immature Gran # (Auto) 0.02 (0.00-0.02) K/uL PT (9.0-12.0) Seconds INR (0.9-1.1) APTT (21.0-31.0) Seconds PTT Ratio Fibrinogen (184-400) mg/dl VBG pH (7.36-7.41) VBG pCO2 (38-50) mmHg VBG pO2 mmHg VBG HCO3 mmol/L VBG O2 Saturation % VBG Base Excess mEq/L Barometric Pressure mm/Hg Sodium 130 L (136-145) mmol/L Potassium 4.3 (3.5-5.1) mmol/L Chloride 95 L (98-107) mmol/L Carbon Dioxide 26 (21-32) mmol/L Anion Gap 9.0 (3-11) BUN 19 H (7-18) mg/dl Creatinine 1.12 (0.6-1.2) mg/dl Est Cr Clr Drug Dosing 58.9 ml/min Est GFR ( Amer) 58.5 ml/min Est GFR (Non-Af Amer) 50.4 ml/min BUN/Creatinine Ratio 17.3 (10-20) Glucose 138 H (70-99) mg/dl Lactate (0.4-2.0) mmol/L Calcium 8.4 L (8.5-10.1) mg/dl Magnesium 1.8 (1.8-2.4) mg/dl Ferritin (8-388) ng/ml Total Bilirubin 0.4 (0.2-1) mg/dl AST 54 H (15-37) U/L ALT 25 (12-78) U/L Alkaline Phosphatase 54 (45-117) U/L Lactate Dehydrogenase (84-246) U/L Troponin I < 0.015 (0-0.045) ng/ml C-Reactive Protein (0-0.29) mg/dl NT-Pro-B Natriuret Pep (0-900) pg/ml Total Protein 8.3 H (6.4-8.2) gm/dl Albumin 2.7 L (3.4-5.0) gm/dl Globulin 5.6 H (2.5-4.0) gm/dl Albumin/Globulin Ratio 0.5 L (0.9-2) Procalcitonin 0.26 (0-0.5) ng/ml COVID-19 Eval Order SARS-CoV-2 (PCR) (Negative) Influ A Molecular Assay (Negative) Influ B Molecular Assay (Negative) 06/29/21 06/29/21 06/29/21 Range/Units 13:05 13:05 13:05 WBC (4.8-10.8) K/uL RBC (4.2-5.4) M/uL Hgb (12.0-16.0) g/dL Hct (37-47) % MCV (80-100) fL MCH (25-34) pg MCHC (32-36) g/dL RDW Std Deviation (36.4-46.3) fL RDW Coeff of Shant (11.5-14.5) % Plt Count (130-400) K/uL MPV (7.4-10.4) fL Immature Gran % (Auto) % Neut % (Auto) % Lymph % (Auto) % [place] % (Auto) % Eos % (Auto) % Baso % (Auto) % Neut # (Auto) (1.4-6.5) K/uL Lymph # (Auto) (1.2-3.4) K/uL [place] # (Auto) (0.11-0.59) K/uL Eos # (Auto) (0-0.5) K/uL Baso # (Auto) (0-0.2) K/uL Immature Gran # (Auto) (0.00-0.02) K/uL PT 9.9 (9.0-12.0) Seconds INR 1.0 (0.9-1.1) APTT 32.3 H (21.0-31.0) Seconds PTT Ratio 1.2 Fibrinogen (184-400) mg/dl VBG pH 7.38 (7.36-7.41) VBG pCO2 51 H (38-50) mmHg VBG pO2 22 mmHg VBG HCO3 29 mmol/L VBG O2 Saturation < 60.0 % VBG Base Excess 3.0 mEq/L Barometric Pressure 730.2 mm/Hg Sodium (136-145) mmol/L Potassium (3.5-5.1) mmol/L Chloride (98-107) mmol/L Carbon Dioxide (21-32) mmol/L Anion Gap (3-11) BUN (7-18) mg/dl Creatinine (0.6-1.2) mg/dl Est Cr Clr Drug Dosing ml/min Est GFR ( Amer) ml/min Est GFR (Non-Af Amer) ml/min BUN/Creatinine Ratio (10-20) Glucose (70-99) mg/dl Lactate 1.4 (0.4-2.0) mmol/L Calcium (8.5-10.1) mg/dl Magnesium (1.8-2.4) mg/dl Ferritin (8-388) ng/ml Total Bilirubin (0.2-1) mg/dl AST (15-37) U/L ALT (12-78) U/L Alkaline Phosphatase (45-117) U/L Lactate Dehydrogenase (84-246) U/L Troponin I (0-0.045) ng/ml C-Reactive Protein (0-0.29) mg/dl NT-Pro-B Natriuret Pep (0-900) pg/ml Total Protein (6.4-8.2) gm/dl Albumin (3.4-5.0) gm/dl Globulin (2.5-4.0) gm/dl Albumin/Globulin Ratio (0.9-2) Procalcitonin (0-0.5) ng/ml COVID-19 Eval Order SARS-CoV-2 (PCR) (Negative) Influ A Molecular Assay (Negative) Influ B Molecular Assay (Negative) 06/29/21 06/29/21 06/29/21 Range/Units 13:05 13:05 17:35 WBC (4.8-10.8) K/uL RBC (4.2-5.4) M/uL Hgb (12.0-16.0) g/dL Hct (37-47) % MCV (80-100) fL MCH (25-34) pg MCHC (32-36) g/dL RDW Std Deviation (36.4-46.3) fL RDW Coeff of Shant (11.5-14.5) % Plt Count (130-400) K/uL MPV (7.4-10.4) fL Immature Gran % (Auto) % Neut % (Auto) % Lymph % (Auto) % [place] % (Auto) % Eos % (Auto) % Baso % (Auto) % Neut # (Auto) (1.4-6.5) K/uL Lymph # (Auto) (1.2-3.4) K/uL [place] # (Auto) (0.11-0.59) K/uL Eos # (Auto) (0-0.5) K/uL Baso # (Auto) (0-0.2) K/uL Immature Gran # (Auto) (0.00-0.02) K/uL PT (9.0-12.0) Seconds INR (0.9-1.1) APTT (21.0-31.0) Seconds PTT Ratio Fibrinogen 404 H (184-400) mg/dl VBG pH (7.36-7.41) VBG pCO2 (38-50) mmHg VBG pO2 mmHg VBG HCO3 mmol/L VBG O2 Saturation % VBG Base Excess mEq/L Barometric Pressure mm/Hg Sodium (136-145) mmol/L Potassium (3.5-5.1) mmol/L Chloride (98-107) mmol/L Carbon Dioxide (21-32) mmol/L Anion Gap (3-11) BUN (7-18) mg/dl Creatinine (0.6-1.2) mg/dl Est Cr Clr Drug Dosing ml/min Est GFR ( Amer) ml/min Est GFR (Non-Af Amer) ml/min BUN/Creatinine Ratio (10-20) Glucose (70-99) mg/dl Lactate (0.4-2.0) mmol/L Calcium (8.5-10.1) mg/dl Magnesium (1.8-2.4) mg/dl Ferritin 634.3 H (8-388) ng/ml Total Bilirubin (0.2-1) mg/dl AST (15-37) U/L ALT (12-78) U/L Alkaline Phosphatase (45-117) U/L Lactate Dehydrogenase 423 H (84-246) U/L Troponin I (0-0.045) ng/ml C-Reactive Protein 10.10 H (0-0.29) mg/dl NT-Pro-B Natriuret Pep 1388 H (0-900) pg/ml Total Protein (6.4-8.2) gm/dl Albumin (3.4-5.0) gm/dl Globulin (2.5-4.0) gm/dl Albumin/Globulin Ratio (0.9-2) Procalcitonin (0-0.5) ng/ml COVID-19 Eval Order SARS-CoV-2 (PCR) (Negative) Influ A Molecular Assay (Negative) Influ B Molecular Assay (Negative) Imaging Data Radiologist's Impression: Chest X-Ray 06/29/21 12:32 XR chest 1V portable HISTORY: 70 years-old Female SEPSIS acute sepsis COMPARISON: Chest radiograph 06/23/2020 TECHNIQUE: Portable AP view of the chest FINDINGS: Cardiac silhouette is moderately enlarged. Pulmonary vascular congestion with reticular interstitial opacities. Mild intermixed airspace opacities. No pneumothorax or large pleural effusion. Mild bibasilar densities. Degenerative changes of the spine and right shoulder. Reverse left shoulder total joint arthroplasty. Surgical anchors of the right humeral head. IMPRESSION: Cardiomegaly with pulmonary vascular congestion, reticular interstitial opacities and intermixed airspace densities suggestive of pulmonary edema versus interstitial pneumonia ACT 112: Negative or not required by law. The above report was generated using voice recognition software. It may contain grammatical, syntax or spelling errors. Electronically signed by: Emerson Garner M.D. 06/29/2021 1:30 PM Abdomen/Pelvis CT 06/29/21 12:[address] WITH IV CONTRAST CT DOSE: 2794.07 mGy.cm HISTORY: Generalized abdominal pain. Diarrhea. Weakness. TECHNIQUE: Multiaxial CT images of the abdomen and pelvis were performed following the use of intravenous contrast. A dose lowering technique was utilized adhering to the principles of ALARA. COMPARISON STUDY: Abdomen and pelvis CT 02/28/2020. FINDINGS: Patchy groundglass densities within the lung bases consistent the pa tient's reported history of a viral pneumonia. No pneumoperitoneum. No pneumatosis. 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 Posterior fusion within the lower lumbar spine. Cholecystectomy. No hepatic or splenic masses. The adrenal glands and pancreas are unremarkable. No retrope ritoneal lymphadenopathy. Normal caliber abdominal aorta. There is mild pelvic floor collapse. The uterus is surgically absent. There is mild bladder wall thickening with a few small bladder diverticula. Mild bilateral hydroureteronephrosis, left greater than right, remains unchanged. No obstructing stones identified. Nondilated fluid-filled loops of large or small bowel seen throughout the abdomen. No evidence for bowel obstruction. No bowel wall thickening. Normal appendix. Small fat-containing umbilical hernia. IMPRESSION: 1. Nondilated fluid-filled loops of large and small bowel seen throughout the abdomen. This likely represents a gastroenteritis/diarrheal illness. 2. No bowel wall thickening or obstruction. 3. Mild bilateral hydroureteronephrosis, unchanged. This is likely chronic. Consider follow-up renal ultrasound in 3-6 months to ensure stability/resolution. 4. Patchy groundglass airspace opacities within the lung bases likely representing a viral pneumonia. ACT 112: Positive. There are findings on this exam that require communication between the performing entity and the patient following Patient Test Result Information Act ([place] Act 112) guidelines. Electronically signed by: Bean Landon M.D. 06/29/2021 3:47 PM Chest CTA 06/29/21 12:42 CT angio chest PE protocol CLINICAL HISTORY: Covid positive. Abdominal pain, diarrhea, weakness, dyspnea TECHNIQUE: Multidetector row helical CT of the chest was performed. Coronal and sagittal reformations were obtained. Automated dose lowering techniques and/or adjustment according to patient size were utilized for this exam. Comparison: Comparison is made to CT chest 10/22/2017 FINDINGS: Lungs and pleura: Diffuse groundglass opacities are seen bilaterally. Heart and pericardium: There is cardiomegaly without evidence of pericardial effusion. Vessels: No evidence of pulmonary embolism. The pulmonary trunk measures 33 mm in diameter. Mediastinum and pablo: Subcentimeter lymph nodes are seen. Chest wall and lower neck: Unremarkable. Abdomen: For findings below the diaphragm, please refer to CT of the abdomen dated the same. Bones: Degenerative changes in the thoracic spine. IMPRESSION: 1. No evidence of pulmonary embolism. 2. Multifocal groundglass opacities compatible with history of viral pneumonia. 3. Pulmonary hypertension and cardiomegaly. ACT 112: Negative or not required by law. Electronically signed by: Hussain Freedman M.D. 06/29/2021 3:05 PM ECG Data Interpretation: Sinus rhythm with a rate of 82. [place] 154 QRS [address] elevation or ST depression. MDM Narrative 1233: The patient was evaluated in room B6. A complete history and physical exam was performed Cardiac monitoring: An order was placed for continuous cardiac monitoring. The monitor shows a rate of 80 with sinus rhythm Patient hypoxic on room air. Patient most likely is COVID-19 based off the history, Decadron 6 mg IV push ordered for the patient. 1642: Vital signs stable on supplemental oxygen via nasal cannula. Labs within normal limits. Imaging shows findings consistent with Covid pneumonia. No PE. CT of the abdomen is negative for any acute surgical emergency. Patient will be admitted to the [facility] hospitalist team Dr. Longoria notified. Impression & Plan Hypoxia, COVID-19 Critical Care Time Critical Care Time: Yes Total Critical Care Time: 61 I have personally spent greater than 61 minutes of critical care time in the direct management of this patient. This includes bedside care, interpretation of diagnostic studies, and testing, discussion with consultants, patient, and family members, and other required patient management activities. This 61 minutes is in excess of all separately billable procedures. Discharge Plan Visit Data Chief Complaint: Illness ED Provider: Sen Meyer Discharge Problem: Hypoxia, COVID-19 Patient Disposition: Admitted As Inpatient Forms Stand Alone Forms: My [facility] Prescriptions Prescriptions: No Action montelukast [Singulair] 10 mg tablet 10 mg PO HS Qty: 90 RF: 3 furosemide [Lasix] 40 mg tablet 40 mg PO QAM Qty: 90 RF: 3 gabapentin 300 mg capsule 300 mg PO BID Qty: 60 RF: 11 duloxetine 30 mg capsule,delayed release(DR/EC) 30 mg PO BID Qty: 180 RF: 3 lorazepam 0.5 mg tablet 0.5 mg PO BID PRN (Reason: muscle spasm) Qty: 30 RF: 0 tramadol 50 mg tablet 100 mg PO Q6H PRN (Reason: pain) Qty: 90 RF: 2 potassium chloride 10 mEq capsule, extended release 10 meq PO BID Qty: 60 RF: 3 baclofen 10 mg tablet 10 mg PO BID Qty: 60 RF: 2 cholecalciferol (vitamin D3) 1,000 unit capsule 3,000 units PO QAM RF: 0 pramipexole [Mirapex] 0.5 mg tablet 0.5 mg PO HS Qty: 90 RF: 3 mirabegron 50 mg tablet extended release 24 hr 50 mg PO DAILY Qty: 30 RF: 5 fluticasone propionate 50 mcg/actuation spray,suspension 2 spray INTNAS DAILY PRN (Reason: NASALL CONGESTION) Qty: 15.8 RF: 11 albuterol sulfate 2.5 mg /3 mL (0.083 %) solution for nebulization 2.5 mg INH QID PRN (Reason: shortness of breath or wheezing) Qty: 90 RF: 3 albuterol sulfate 90 mcg/actuation HFA aerosol inhaler 2 puff INH Q6H PRN (Reason: shortness of breath or wheezing) Qty: 18 RF: 3 amoxicillin-pot clavulanate [Augmentin] 875-125 mg tablet 1 tab PO BID 10 Days Qty: 20 RF: 0 acetaminophen [Tylenol] 325 mg Tablet 325 mg PO QID PRN (Reason: Pain) RF: 0 biotin 5,000 mcg Tablet,Disintegrating 5,000 mcg PO QAM RF: 0 pantoprazole 40 mg tablet,delayed release (DR/EC) 40 mg PO BID RF: 0 rosuvastatin 10 mg tablet 10 mg PO QAM RF: 0 Breo Ellipta 100-25 mcg/dose blister with device 1 inh INHALATION HS RF: 0 Referrals Referrals: Bismark Ronquillo MD [Primary Care Provider] -
--- NOTE | 2021-06-29 15:48 | CT Scan Report ---
ABDOMEN AND PELVIS CT WITH IV CONTRAST CT DOSE: 2794.07 mGy.cm HISTORY: Generalized abdominal pain. Diarrhea. Weakness. TECHNIQUE: Multiaxial CT images of the abdomen and pelvis were performed following the use of intrave nous contrast. A dose lowering technique was utilized adhering to the principles of ALARA. COMPARISON STUDY: Abdomen and pelvis CT 02/28/2020. FINDINGS: Patchy groundglass densities within the lung bases consistent the patient's reported histor y of a viral pneumonia. No pneumoperitoneum. No pneumatosis. 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 Posterior fusion within the lower lumbar spine. Cholecystectomy. No hepatic or s plenic masses. The adrenal glands and pancreas are unremarkable. No retroperitoneal lymphadenopathy. Normal caliber abdominal aorta. There is mild pelvic floor collapse. The uterus is surgically absent. There is mild bladder wall thickening with a few small bladder diverticula. Mild bilateral hydrouret eronephrosis, left greater than right, remains unchanged. No obstructing stones identified. Nondilate d fluid-filled loops of large or small bowel seen throughout the abdomen. No evidence for bowel obstr uction. No bowel wall thickening. Normal appendix. Small fat-containing umbilical hernia. IMPRESSION: 1. Nondilated fluid-filled loops of large and small bowel seen throughout the abdomen. This likely re presents a gastroenteritis/diarrheal illness. 2. No bowel wall thickening or obstruction. 3. Mild bilateral hydroureteronephrosis, unchanged. This is likely chronic. Consider follow-up renal ultrasound in 3-6 months to ensure stability/resolution. 4. Patchy groundglass airspace opacities within the lung bases likely representing a viral pneumonia. ACT 112: Positive. There are findings on this exam that require communication between the performing entity and the patient following Patient Test Result Information Act ([place] Act 112) guidelines. Electronically signed by: Bean Landon M.D. 06/29/2021 3:47 PM
[2021-06-29] MEDS ORDERED: SODIUM CHLORIDE 0.9% 1000ML 250 ML IV ONE (16:30)
--- NOTE | 2021-06-29 16:45 | Electrocardiogram Report ---
Test Reason : Blood Pressure : / mmHG Vent. Rate : 082 BPM Atrial Rate : 082 BPM P-R Int : 154 ms QRS Dur : 070 ms QT Int : 368 ms P-R-T Axes : 028 018 017 degrees QTc Int : 429 ms Poor data quality, interpretation may be adversely affected Normal sinus rhythm Low voltage QRS Borderline ECG When compared with ECG of 23-JUN-2020 16:29, No significant change was found Confirmed by Justin Meza ([id number]) on 06/29/2021 4:45:02 PM Referred By: Confirmed By:Justin Meza
[2021-06-29] MEDS ORDERED: REMDESIVIR 200 MG in SODIUM CHLORIDE 0.9% 210 ML IV STA (17:10)
[2021-06-29 17:28] LABS: C Reactive Protein 10.1 mg/dl (0-0.29); Ferritin 634.3 ng/ml (8-388)
--- NOTE | 2021-06-29 17:31 | History & Physical Report ---
Date of Service June 29, 2021 Assessment & Plan (1) COVID-19: Plan: COVID 19 pneumonia- vaccinated with 1 dose, day of illness 6-9. - with hypoxia requiring HFNC- - CRP 10.10, Ferritin, 634.3, LDH 423, BNP 1388, Fibrinogen pending on admission - Decadron 6mg IV daily - Oxygen support- NC/oxymask/HFNC/CPAP/BIPAP/INTUBATION - likely candidate for Tocilizumab/Baricitinib-will see how oxygen dependency declairs over the next 12-18 hours - If not candidate can consider increasing Decadron dosing - Albuterol nebs and inhaler - Remdisivir daily - Lasix 20mg IV x1 now - PCT 0.26- will not add on abx therapy - Self proning and rotational therapy - VTE- Lovenox 0.5mg/kg/day - Comorbids likely for severe disease. (2) Hypoxia: Plan: Hypoxia with respiratory failure - As above (3) Nocturnal hypoxemia: Plan: with VIKKI- CPAP 8CM H20 with 3Liters oxygen bled in - CPAP and BIPAP as needed and at night for oxyganation support (4) COPD (chronic obstructive pulmonary disease): Plan: Continue with ARNULFO INH and Nebs, continue BREO (5) Foot drop, bilateral: Plan: From lumbar radiculopathy - wears braces - came to hospital with only brac on her right leg - Supportive care and bracing as needed (6) Hyperlipidemia: Plan: Continue Rosuvastatin (7) HTN (hypertension): Plan: Continue Lasix 40mg PO daily (8) Chronic radicular lumbar pain: Plan: Continue Tramadol, continue with gabpentin, continue baclofen, continue tylenol (9) Restless leg syndrome: Plan: As above (10) Urinary Incontinence: Plan: Pinto catheter placment for incontinence and likely to fatigue easily and worsening hypoxia in setting of diuresing - continue mirabegron (11) GERD (gastroesophageal reflux disease): Plan: Continue BID pantoprazole with steroid use and home therapy (12) DMII (diabetes mellitus, type 2): Plan: Place on Dextrose sticks AC/HS - sliding scale coverage 100-140 with CF: 20 ratio 1:15 - likely to go up with steroid dosing (13) Morbid obesity with BMI of 50.0-59.9, adult: Plan: Supportive care, assistance with self rotation and proning therapy History of Present Illness Primary Care Provider: Bismark Ronquillo MD 70 YOF with past medical history of: Morbid obesity, chronic low back pain with foot drop, spinal stenosis with cervical decompression, neuropathy, COPD, VIKKI, HLD, HTN, DMII, Dysphagia, Urinary incontinence with bladder prolapse. Patient comes to the EMD today for dyspnea, fatigue, and concern for COVID 19. Patient states that she started feeling ill last 24Jun2021 with head congestion, runny nose, abdominal discomfort, diarrhea x4 days. Patient has lost her sense of taste and smell. She had a call in visit with her PCP on with complaints of sinus drainage, fever, and pain behind her eyes with cough. Recommended COVID testing at that time and was given script for Augmentin. She has decreased oral intake of food and water. Patient usually has home health assistance help her at home, but this has lapsed per her and her son was assisting with her as her primary career guidance technician, he reportedly tested positive a couple days ago and was sent home on home therapy. Patient's onset of symptoms are between 6-9 days. Patient will be admitted for COVID 19. We have discussed therapy for her COVID and hypoxemia to include steroid therapy, remdisivir, and oxygenation escalation, and self rotational therapy and proning. Patient verbalized that she would want Remdisivir and may have difficulty with prone position, but will need help laying on her side. Overall fatigued appear ing. Co-morbids put her at risk for severe disease. Support as below. Patient had received 1 dose of her COVID vaccine and her COVID test on admission is: POSITIVE Allergies Allergy/AdvReac Type Severity Reaction Status Date / Time cetirizine Allergy Intermediate RASH Verified 06/12/21 10:17 metformin AdvReac Unknown GI upset Verified 06/12/21 10:17 sulfamethoxazole AdvReac severe dry Verified 06/12/21 10:17 [From Bactrim] mouth trimethoprim [From Bactrim] AdvReac severe dry Verified 06/12/21 10:17 mouth Home Medications Medication Instructions Recorded Confirmed Type cholecalciferol (vitamin D3) 25 3,000 units PO QAM cap 01/26/19 06/29/21 History mcg (1,000 unit) capsule biotin 5,000 mcg disintegrating 5,000 mcg PO QAM 04/18/19 06/29/21 History tablet acetaminophen 325 mg tablet 325 mg PO QID PRN 02/28/20 06/29/21 History (Tylenol) pramipexole 0.5 mg tablet (Mirapex) 0.5 mg PO HS #90 tab 08/25/20 06/29/21 Rx montelukast 10 mg tablet 10 mg PO HS #90 tab 10/20/20 06/29/21 Rx (Singulair) furosemide 40 mg tablet (Lasix) 40 mg PO QAM #90 tab 10/24/20 06/29/21 Rx gabapentin 300 mg capsule 300 mg PO BID #60 cap 11/07/20 06/29/21 Rx albuterol sulfate 2.5 mg INH QID PRN #90 ml 01/05/21 06/29/21 Rx albuterol sulfate 90 mcg/actuation 2 puff INH Q6H PRN #18 gm 01/05/21 06/29/21 Rx aerosol inhaler duloxetine 30 mg capsule,delayed 30 mg PO BID #180 cap 04/02/21 06/29/21 Rx release lorazepam 0.5 mg tablet 0.5 mg PO BID PRN #30 tab 04/02/21 06/29/21 Rx tramadol 50 mg tablet 100 mg PO Q6H PRN #90 tab 04/02/21 06/29/21 Rx potassium chloride 10 mEq 10 meq PO BID #60 cap 04/30/21 06/29/21 Rx capsule,extended release baclofen 10 mg tablet 10 mg PO BID #60 tab 05/01/21 06/29/21 Rx fluticasone furoate 100 1 inh INHALATION HS 05/09/21 06/29/21 History mcg-vilanterol 25 mcg/dose inhalation powder (Breo Ellipta) pantoprazole 40 mg tablet,delayed 40 mg PO BID 05/09/21 06/29/21 History release rosuvastatin 10 mg tablet 10 mg PO QAM 05/09/21 06/29/21 History fluticasone propionate 50 2 spray INTNAS DAILY PRN #15.8 ml 05/13/21 06/29/21 Rx mcg/actuation nasal spray,suspension mirabegron 50 mg tablet,extended 50 mg PO DAILY #30 tab 06/16/21 06/29/21 Rx release 24 hr amoxicillin 875 mg-potassium 1 tab PO BID 10 Days #20 tab 06/23/21 06/29/21 Rx clavulanate 125 mg tablet (Augmentin) Past Med/Surg History Medical History Ambulatory dysfunction Anxiety Asthma stable COPD (chronic obstructive pulmonary disease) Stable and controlled Depressive disorder Diabetes mellitus NIDDM- stable and controlled per patient Discoloration of skin of lower leg Edema Fibromyalgia Constant pain Foot drop, bilateral Gastroparesis GERD (gastroesophageal reflux disease) controlled History of ear infection hx recurrent ear infections s/p drainage tube in left ear - no recent issues History of urinary incontinence chronic History of urinary urgency chronic Hyperlipidemia Hypertension Lumbar spinal stenosis Severe at L3-4 Mixed conductive and sensorineural hearing loss Morbid obesity On home oxygen therapy 3LPM at HS Pain of lower extremity Restless leg syndrome Right leg weakness Severe muscle deconditioning Sleep apnea CPAP Spinal stenosis Unable to care for self Surgical History H/O: hysterectomy History of cholecystectomy History of esophagogastroduodenoscopy (EGD) History of left knee replacement History of left shoulder replacement History of repair of right rotator cuff History of right knee joint replacement History of surgery on upper extremity LET ARM ABSCESS History of tonsillectomy History of tooth extraction all teeth Hx of colonoscopy Family History Brother Family history of diabetes mellitus Sister Family history of diabetes mellitus Breast cancer Mother Family history of diabetes mellitus Stroke Aunt Family history of diabetes mellitus Father Myocardial infarction Other Coronary heart disease Denies family history of Ovarian cancer Prostate cancer Colorectal cancer Social History Smoking Status: Never smoker Second Hand Exposure: Yes; Hx Alcohol Use: No Hx Substance Use: No Preferred Language: Yemeni Communication Ability: Effective Visual Impairment: No Limitations Hearing Ability: Hard of Hearing Ditcher Operator Required: No Beliefs That Will Affect Care: None marital status: / Current Living Situation: Alone Feels Safe at Home: Yes Childhood Exposure to Second-Hand Smoke: Yes caffeine: Yes (tea every morning) Dental Care, Regularly: No Physical Activity Frequency: Does not Exercise Seatbelt Use: always Sunscreen Use: Yes Assistive Devices: Glasses, Oxygen - at Night, Walker and Wheelchair Review of Systems Review of Systems: REVIEW OF SYSTEMS: Constitutional: (+) fever, sweats. NO chills Eyes: No diplopia, no worsening or blurred vision ENT: normal hearing, no trouble swallowing Respiratory: (+) cough, sputum, dyspnea at rest or on exertion Cardiovascular: No chest pain, tightness or palpitations Abdomen: (+) nausea/diarrhea, No pain, or constipation Musculoskeletal: (+) chronic lower back and hip joint pain, NO calf pain, swelling Neurologic: (+) foot drop bilaterally with neuropathy, ambulates with her braces on. Psychiatric: No anxiety or depression Skin: No rash or itch Physical Exam Physical Exam: PHYSICAL EXAM: General: awake, alert, no apparent distress Head: Normocephalic, atraumatic ENT: PERRL, EOMI, no pharyngeal exudate, mucous membranes moist Neuro: AAO x 3, speech clear and appropriate, strength intact bilaterally 5/5 upper, 4/5 lowers sensation intact and equal all extremities and dermatomes, no pronator drift, bilateral foot drop Chest: equal rise and fall of the chest, no accessory muscle use, no heaves or thrills, decreased air movment throughout Cardiac: Regular rate and rhythm, telemetry reviewed, skin warm dry, cap refill <3 seconds, peripheral pulses +2 no JVD, no murmur, no edema GI: NABS x 4 quadrants, soft, nontender to palpation, no rebound, guarding or tenderness : Spontaneously voiding, no pain, no CVA tenderness, Extremities: Normal inspection, no peripheral edema or erythema, calfs nontender to palpation Psych: Normal mood and affect Skin: no rash or erythema Results & Data Results & Data ([facility]) Vital Signs (Past 12 Hours) Vital Signs Temp Pulse Pulse Resp BP BP Pulse Ox 06/29/21 15:29 81 24 93/45 L 93 06/29/21 13:33 78 24 104/60 96 06/29/21 12:22 36.7 C 79 22 93/50 L 80 L Laboratory Results Abnormal lab results 06/29/21 06/29/21 06/29/21 Range/Units 13:02 13:05 13:05 RBC 4.06 L (4.2-5.4) M/uL RDW Std Deviation 49.1 H (36.4-46.3) fL APTT (21.0-31.0) Seconds VBG pCO2 (38-50) mmHg Sodium 130 L (136-145) mmol/L Chloride 95 L (98-107) mmol/L BUN 19 H (7-18) mg/dl Glucose 138 H (70-99) mg/dl Calcium 8.4 L (8.5-10.1) mg/dl Ferritin (8-388) ng/ml AST 54 H (15-37) U/L Lactate Dehydrogenase (84-246) U/L C-Reactive Protein (0-0.29) mg/dl NT-Pro-B Natriuret Pep (0-900) pg/ml Total Protein 8.3 H (6.4-8.2) gm/dl Albumin 2.7 L (3.4-5.0) gm/dl Globulin 5.6 H (2.5-4.0) gm/dl Albumin/Globulin Ratio 0.5 L (0.9-2) SARS-CoV-2 (PCR) POSITIVE A* (Negative) 06/29/21 06/29/21 06/29/21 Range/Units 13:05 13:05 13:05 RBC (4.2-5.4) M/uL RDW Std Deviation (36.4-46.3) fL APTT 32.3 H (21.0-31.0) Seconds VBG pCO2 51 H (38-50) mmHg Sodium (136-145) mmol/L Chloride (98-107) mmol/L BUN (7-18) mg/dl Glucose (70-99) mg/dl Calcium (8.5-10.1) mg/dl Ferritin 634.3 H (8-388) ng/ml AST (15-37) U/L Lactate Dehydrogenase (84-246) U/L C-Reactive Protein 10.10 H (0-0.29) mg/dl NT-Pro-B Natriuret Pep 1388 H (0-900) pg/ml Total Protein (6.4-8.2) gm/dl Albumin (3.4-5.0) gm/dl Globulin (2.5-4.0) gm/dl Albumin/Globulin Ratio (0.9-2) SARS-CoV-2 (PCR) (Negative) 06/29/21 Range/Units 13:05 RBC (4.2-5.4) M/uL RDW Std Deviation (36.4-46.3) fL APTT (21.0-31.0) Seconds VBG pCO2 (38-50) mmHg Sodium (136-145) mmol/L Chloride (98-107) mmol/L BUN (7-18) mg/dl Glucose (70-99) mg/dl Calcium (8.5-10.1) mg/dl Ferritin (8-388) ng/ml AST (15-37) U/L Lactate Dehydrogenase 423 H (84-246) U/L C-Reactive Protein (0-0.29) mg/dl NT-Pro-B Natriuret Pep (0-900) pg/ml Total Protein (6.4-8.2) gm/dl Albumin (3.4-5.0) gm/dl Globulin (2.5-4.0) gm/dl Albumin/Globulin Ratio (0.9-2) SARS-CoV-2 (PCR) (Negative) Diagnostic Findings Chest X-Ray 06/29/21 12:32 XR chest 1V portable HISTORY: 70 years-old Female SEPSIS acute sepsis COMPARISON: Chest radiograph 06/23/2020 TECHNIQUE: Portable AP view of the chest FINDINGS: Cardiac silhouette is moderately enlarged. Pulmonary vascular congestion with reticular interstitial opacities. Mild intermixed airspace opacities. No pneumothorax or large pleural effusion. Mild bibasilar densities. Degenerative changes of the spine and right shoulder. Reverse left shoulder total joint arthroplasty. Surgical anchors of the right humeral head. IMPRESSION: Cardiomegaly with pulmonary vascular congestion, reticular interstitial opacities and intermixed airspace densities suggestive of pulmonary edema versus interstitial pneumonia ACT 112: Negative or not required by law. The above report was generated using voice recognition software. It may contain grammatical, syntax or spelling errors. Electronically signed by: Emerson Garner M.D. 06/29/2021 1:30 PM Abdomen/Pelvis CT 06/29/21 12:[address] WITH IV CONTRAST CT DOSE: 2794.07 mGy.cm HISTORY: Generalized abdominal pain. Diarrhea. Weakness. TECHNIQUE: Multiaxial CT images of the abdomen and pelvis were performed following the use of intravenous contrast. A dose lowering technique was utilized adhering to the principles of ALARA. COMPARISON STUDY: Abdomen and pelvis CT 02/28/2020. FINDINGS: Patchy groundglass densities within the lung bases consistent the patient's reported history of a viral pneumonia. No pneumoperitoneum. No pneumatosis. 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 Posterior fusion within the lower lumbar spine. Cholecystectomy. No hepatic or splenic masses. The adrenal glands and pancreas are unremarkable. No retroperitoneal lymphadenopathy. Normal caliber abdominal aorta. There is mild pelvic floor collapse. The uterus is surgically absent. There is mild bladder wall thickening with a few small bladder diverticula. Mild bilateral hydroureteronephrosis, left greater than right, remains unchanged. No obstructing stones identified. Nondilated fluid-filled loops of large or small bowel seen throughout the abdomen. No evidence for bowel obstruction. No bowel wall thickening. Normal appendix. Small fat-containing umbilical hernia. IMPRESSION: 1. Nondilated fluid-filled loops of large and small bowel seen throughout the abdomen. This likely represents a gastroenteritis/diarrheal illness. 2. No bowel wall thickening or obstruction. 3. Mild bilateral hydroureteronephrosis, unchanged. This is likely chronic. Con account support manager follow-up renal ultrasound in 3-6 months to ensure stability/resolution. 4. Patchy groundglass airspace opacities within the lung bases likely representing a viral pneumonia. ACT 112: Positive. There are findings on this exam that require communication between the performing entity and the patient following Patient Test Result Information Act ([place] Act 112) guidelines. Electronically signed by: Bean Landon M.D. 06/29/2021 3:47 PM Chest CTA 06/29/21 12:42 CT angio chest PE protocol CLINICAL HISTORY: Covid positive. Abdominal pain, diarrhea, weakness, dyspnea TECHNIQUE: Multidetector row helical CT of the chest was performed. Coronal and sagittal reformations were obtained. Automated dose lowering techniques and/or adjustment according to patient size were utilized for this exam. Comparison: Comparison is made to CT chest 10/22/2017 FINDINGS: Lungs and pleura: Diffuse groundglass opacities are seen bilaterally. Heart and pericardium: There is cardiomegaly without evidence of pericardial effusion. Vessels: No evidence of pulmonary embolism. The pulmonary trunk measures 33 mm in diameter. Mediastinum and pablo: Subcentimeter lymph nodes are seen. Chest wall and lower neck: Unremarkable. Abdomen: For findings below the diaphragm, please refer to CT of the abdomen dated the same. Bones: Degenerative changes in the thoracic spine. IMPRESSION: 1. No evidence of pulmonary embolism. 2. Multifocal groundglass opacities compatible with history of viral pneumonia. 3. Pulmonary hypertension and cardiomegaly. ACT 112: Negative or not required by law. Electronically signed by: Hussain Freedman M.D. 06/29/2021 3:05 PM Medications Administered Home Medications cholecalciferol (vitamin D3) 25 mcg (1,000 unit) capsule 3,000 units PO QAM cap 01/26/19 [History Confirmed 06/29/21] biotin 5,000 mcg disintegrating tablet 5,000 mcg PO QAM 04/18/19 [History Confirmed 06/29/21] acetaminophen 325 mg tablet (Tylenol) 325 mg PO QID PRN 02/28/20 [History Confirmed 06/29/21] pramipexole 0.5 mg tablet (Mirapex) 0.5 mg PO HS #90 tab 08/25/20 [Rx Confirmed 06/29/21] montelukast 10 mg tablet (Singulair) 10 mg PO HS #90 tab 10/20/20 [Rx Confirmed 06/29/21] furosemide 40 mg tablet (Lasix) 40 mg PO QAM #90 tab 10/24/20 [Rx Confirmed 06/29/21] gabapentin 300 mg capsule 300 mg PO BID #60 cap 11/07/20 [Rx Confirmed 06/29/21] albuterol sulfate 2.5 mg INH QID PRN #90 ml 01/05/21 [Rx Confirmed 06/29/21] albuterol sulfate 90 mcg/actuation aerosol inhaler 2 puff INH Q6H PRN #18 gm 01/05/21 [Rx Confirmed 06/29/21] duloxetine 30 mg capsule,delayed release 30 mg PO BID #180 cap 04/02/21 [Rx Confirmed 06/29/21] lorazepam 0.5 mg tablet 0.5 mg PO BID PRN #30 tab 04/02/21 [Rx Confirmed 06/29/21] tramadol 50 mg tablet 100 mg PO Q6H PRN #90 tab 04/02/21 [Rx Confirmed 06/29/21] potassium chloride 10 mEq capsule,extended release 10 meq PO BID #60 cap 04/30/21 [Rx Confirmed 06/29/21] baclofen 10 mg tablet 10 mg PO BID #60 tab 05/01/21 [Rx Confirmed 06/29/21] fluticasone furoate 100 mcg-vilanterol 25 mcg/dose inhalation powder (Breo Ell ipta) 1 inh INHALATION HS 05/09/21 [History Confirmed 06/29/21] pantoprazole 40 mg tablet,delayed release 40 mg PO BID 05/09/21 [History Confirmed 06/29/21] rosuvastatin 10 mg tablet 10 mg PO QAM 05/09/21 [History Confirmed 06/29/21] fluticasone propionate 50 mcg/actuation nasal spray,suspension 2 spray INTNAS DAILY PRN #15.8 ml 05/13/21 [Rx Confirmed 06/29/21] mirabegron 50 mg tablet,extended release 24 hr 50 mg PO DAILY #30 tab 06/16/21 [Rx Confirmed 06/29/21] amoxicillin 875 mg-potassium clavulanate 125 mg tablet (Augmentin) 1 tab PO BID 10 Days #20 tab 06/23/21 [Rx Confirmed 06/29/21] Active Medications Remdesivir 200 mg/ Sodium (Chloride) 250 mls @ 125 mls/hr IV ONE STA; Protocol Stop: 06/29/21 19:09 Last Admin: 06/29/21 17:32 Dose: 125 mls/hr Documented by: Remdesivir 200 mg/ Sodium (Chloride) 250 mls @ 125 mls/hr IV ONE STA; Protocol Stop: 06/29/21 19:09 Last Admin: 06/29/21 17:32 Dose: 125 mls/hr Documented by: [id number] Discontinued Medications Dexamethasone (Dexamethasone Sod Inj 4 Mg/Ml Vial) 6 mg IV NOW STA Stop: 06/29/21 12:31 Last Admin: 06/29/21 13:32 Dose: 6 mg Documented by: [id number] Sodium Chloride (Nss 1000ml) 1,000 mls @ 999 mls/hr IV .Q1H1M DEDE Stop: 06/29/21 13:30 Last Infusion: 06/29/21 15:31 Dose: 0 mls/hr Documented by: [id number] Admin: 06/29/21 13:32 Dose: 999 mls/hr Documented by: [id number] Ioversol (Optiray 320 125ml) 117 ml IV ONCE ONE Stop: 06/29/21 14:46 Last Admin: 06/29/21 14:46 Dose: 117 ml Documented by: [id number] ECG Additional Comments: Vent. Rate : 082 BPM Atrial Rate : 082 BPM P-R Int : 154 ms QRS Dur : 070 ms QT Int : 368 ms P-R-T Axes : 028 018 017 degrees QTc Int : 429 ms Normal sinus rhythm Low voltage QRS Borderline ECG When compared with ECG of 23-JUN-2020 16:29, No significant change was found Code Status & VTE Plan Code Status CODE: FULL VTE: SCDS, Lovenox 0.5mg/kg q 12 VTE Prophylaxis Plan VTE Prophylaxis will be ordered: Yes Supervising Physician Co-Signing Physician Notes Patient was seen and examined independently I discussed the case with Jack DU I reviewed pertinent past medical social family history and also the plan of care and agree with the plan of care. Patient reportedly was ill approximately 2 weeks ago had a telephone call with her primary care physician with concerns for sinusitis was offered Covid testing and declined. Reportedly now both her and her son are positive for Covid. Patient rapidly escalation to high flow oxygen in the emergency department being on 30 L 50% however initially was having challenges keeping nasal cannula on frequently pulling it off. She is not encephalopathic just very uncomfortable lying in the bed due to low back chronic issues. Patient is also morbidly obese. On examination by imaging of her lungs both CT and chest x-ray look consistent with Covid pneumonia. There is multifocal groundglass opacities seen in all lung munoz. Her initial CRP is very high. Will not initially asked for by her baricitinib or tocilizumab however if her oxygen requirement continues to be significant despite dexamethasone and remdesivir treatment we will ask pulmonary medicine to approve these medications likely in short order. Her lung exams are consistent with crackles that are heard with Covid pneumonia. Acute hypoxic respiratory failure secondary to Covid pneumonia with treatment with dexamethasone remdesivir and likely progression to need for baricitinib or tocilizumab Given her preillness medical state concern for a prolonged hospital course is high Any exceptions will be noted below PG Care Time/CCT Total # of Minutes Spent Total Time Spent with Patient: Total time spent is greater than 50% in coordination of care (as documented) at patient's floor/unit and/or counseling patient: Coding Level of Care Code 27681 Initial Inpt Care Lvl 3 Diagnoses COVID-19 U07.1 Nocturnal hypoxemia G47.34 Morbid obesity with BMI of 50.0-59.9, adult E66.01; Z68.43 Foot drop, bilateral M21.371; M21.372 Hyperlipidemia E78.5 HTN (hypertension) I10 Chronic radicular lumbar pain M54.16; G89.29 Urinary Incontinence R32 COPD (chronic obstructive pulmonary disease) J44.9 GERD (gastroesophageal reflux disease) K21.9 Restless leg syndrome G25.81 Hypoxia R09.02 DMII (diabetes mellitus, type 2) E11.9
[2021-06-29 17:49] LABS: Fibrinogen 404 mg/dl (184-400)
[2021-06-29 19:10] LABS: Appearance Urine Clear (Clear); Bacteria Urine Automated Negative (Negative); Bilirubin Urine Negative (Negative); Blood Urine Negative (Negative); Color Urine Yellow; Epithelial Cell Urine Auto >30 /lpf (0-5); Glucose Urine UA Negative (Negative); Ketones Urine Negative (Negative); Leukocyte Esterase Urine Negative (Negative); Nitrite Urine Negative (Negative); Protein Urine Trace (Negative); RBC Urine Automated 0-4 /hpf (0-4); Specific Gravity Urine 1.034 (1.000-1.030); Urobilinogen Urine Negative (Negative); pH Urine 5.5 (4.5-7.5)
[2021-06-29] MEDS ORDERED: POLYETHYLENE (MIRALAX) 17 GM PACK PO PRN (23:08)
[2021-06-29] MEDS ORDERED: GLUCOSE 10 TABS/TUBE PO PRN (23:08)
[2021-06-29] MEDS ORDERED: DEXTROSE 50% 50 ML SYRINGE IV PRN (23:08)
[2021-06-29] MEDS ORDERED: CARBOHYDRATES FOR HYPOGLYCEMIA PO PRN (23:08)
[2021-06-29] MEDS ORDERED: LORazepam 0.5 MG TAB PO PRN (23:08)
[2021-06-29] MEDS ORDERED: ALBUTEROL 0.083% NEBU SOLN 3 ML VIAL NEB PRN (23:08)
[2021-06-29] MEDS ORDERED: GLUCAGON FOR INJ 1 MG VIAL SQ PRN (23:08)
[2021-06-29] MEDS ORDERED: GLUCOSE 40% GEL 15 GM TUBE PO PRN (23:08)
[2021-06-29] MEDS ORDERED: traMADol HCL 50 MG TABLET PO PRN (23:08)
[2021-06-29] MEDS ORDERED: FUROSEMIDE INJ 20 MG/2 ML VIAL IV ONE (23:30)
[2021-06-30] MEDS: PRAMIPEXOLE DIHYDROCHLO 0.5 MG TAB PO SCH ×2 (01:28→20:01)
[2021-06-30] MEDS: BACLOFEN 10 MG TAB PO SCH ×3 (01:28→20:00)
[2021-06-30] MEDS: DULoxetine HCL 30 MG CAP PO SCH ×3 (01:28→20:00)
[2021-06-30] MEDS: POTASSIUM CHLORIDE 10 MEQ TABCR PO SCH ×3 (01:29→18:00)
[2021-06-30] MEDS: ENOXAPARIN INJ 60 MG/0.6 ML SYR SQ SCH ×3 (01:29→20:00)
[2021-06-30] MEDS: MONTELUKAST SODIUM 10 MG TABLET PO SCH ×2 (01:30→20:00)
[2021-06-30] MEDS: GABAPENTIN 300 MG CAP PO SCH ×3 (01:30→20:00)
[2021-06-30] MEDS: PANTOprazole 40 MG TAB PO SCH ×3 (01:31→19:58)
[2021-06-30] MEDS ORDERED: FUROSEMIDE INJ 20 MG/2 ML VIAL IV ONE (01:36)
[2021-06-30] MEDS: ALBUTEROL HFA 8 GM INHALER INH SCH ×4 (01:43→20:04)
[2021-06-30] MEDS: FLUTICASONE/VILANTEROL 100/25MCG 14 PUFFS/INHALER INH SCH ×2 (01:46→21:23)
[2021-06-30] MEDS: INSULIN ASPART 100 UNITS/ML 3 ML PEN SC SCH ×5 (01:54→21:30)
[2021-06-30] MEDS: MoRPHine SULFATE 2 MG/ML CARP IV PRN (03:19)
[2021-06-30 03:36] LABS: iSTAT Allen Test Pass; iSTAT Arterial Blood Gas HCO3 27 meg/L (19-24); iSTAT Arterial Blood Gas pCO2 47 mmHg (35-46); iSTAT Arterial Blood Gas pH 7.37 (7.35-7.45); iSTAT Arterial Blood Gas pO2 74 mmHg (80-95); iSTAT Carbon Dioxide 28 mmol/L (24-31); iSTAT Site R Radial
[2021-06-30 06:07] LABS: Hematocrit (blood only) 35.2 % (37-47); Hemoglobin 11.7 g/dL (12.0-16.0); Mean Corpuscular Hemoglobin 31.5 pg (25-34); Mean Corpuscular Hgb Conc 33.2 g/dL (32-36); Mean Corpuscular Volume 94.9 fL (80-100); Mean Platelet Volume 9.9 fL (7.4-10.4); Platelet Count 155 K/uL (130-400); RDW Standard Deviation 49.1 fL (36.4-46.3); Red Blood Count 3.71 M/uL (4.2-5.4); White Blood Count 4.43 K/uL (4.8-10.8)
[2021-06-30 06:43] LABS: BUN Creatinine Ratio 19.4 (10-20); Calcium 8.6 mg/dl (8.5-10.1); Creatinine Clr Calc Pharmacy 79.4 ml/min; Est GFR (African American) 81.6 ml/min; Est GFR (Non-African American) 70.4 ml/min; Magnesium 1.7 mg/dl (1.8-2.4); Potassium 3.9 mmol/L (3.5-5.1)
[2021-06-30 06:50] LABS: C Reactive Protein 10.4 mg/dl (0-0.29)
[2021-06-30 07:12] LABS: Basophils # (auto) 0.02 K/uL (0-0.2); Basophils % (auto) 0.5 %; Immature Granulocytes # (auto) 0.01 K/uL (0.00-0.02); Immature Granulocytes % (auto) 0.2 %; Lymphocytes # (auto) 1.18 K/uL (1.2-3.4); Lymphocytes % (auto) 26.6 %; Monocytes # (auto) 0.73 K/uL (0.11-0.59); Monocytes % (auto) 16.5 %; Neutrophils # (auto) 2.49 K/uL (1.4-6.5); Neutrophils % (auto) 56.2 %
[2021-06-30] MEDS: FUROSEMIDE 40 MG/4 ML VIAL IV SCH (08:30)
[2021-06-30] MEDS: dexAMETHasone 6 MG in SYRINGE 0 ML IV SCH (08:30)
--- NOTE | 2021-06-30 08:46 | XRay Report ---
XR chest 1V portable CLINICAL HISTORY: resp distress TECHNIQUE: Single frontal radiograph of the chest was obtained. Comparison: Comparison is made to chest one view 06/29/2021 FINDINGS: No lines and tubes are seen. Cardiomegaly is noted. Diffuse airspace opacities are noted bilaterally. Possible small bilateral pleural effusions. IMPRESSION: 1. Multifocal airspace opacities which may represent atelectasis, pneumonia, and/or aspiration. 2. Cardiomegaly. 3. Cannot exclude small bilateral pleural effusions. ACT 112: Negative or not required by law. Electronically signed by: Hussain Freedman M.D. 06/30/2021 8:45 AM
[2021-06-30] MEDS ORDERED: FUROSEMIDE 40 MG TAB PO SCH (09:00)
[2021-06-30] MEDS: INSULIN GLARGINE SOLOSTAR 100 UNITS/ML 3 ML PEN SC SCH (10:58)
[2021-06-30] MEDS: MAGNESIUM SULFATE / D5W 1 GM/100 ML BAG IV SCH ×2 (11:04→13:00)
--- NOTE | 2021-06-30 13:30 | Hospitalist Progress Note ---
Date of Service June 30, 2021 Assessment & Plan (1) Pneumonia due to COVID-19 virus: Plan: severe, with resulting acute hypoxic/hypercapneic respiratory failure. now requiring large quantities of HFNC. O2 requirements have escalated quickly in <24 hours. CRP elevated at 10. Plan - * patient IS a candidate for baricitinib therapy due to large FiO2 requirement, rapid deterioration, and elevated CRP to 10 * pulmonary gave approval for baricitinib 4mg po daily, up to 14 days of Rx * cont dexamethasone 6mg IV daily; day #2 today * cont 5-day course of Remdesivir; day #2 today * add incentive and flutter valve when on HFNC * side positioning and proning both strongly advised; patient willing to try proning * diurese with lasix as below * HFNC during the day * BIPAP at HS * low threshold for formal pulmonary consultation (2) Acute respiratory failure with hypoxia and hypercapnia: Plan: 2nd to #1 and #3 - supportive care, HFNC during the day, BIPAP at HS (3) Acute diastolic CHF (congestive heart failure): Plan: suspected. s/p lasix last pm and again this am with copious diuresis. BNP noted to be elevated. hold additional doses of IV lasix; re-eval in am with BMP and exam. (4) COPD (chronic obstructive pulmonary disease): Plan: Cont home inhalers and scheduled ventolin 2 puffs q6h scheduled Cont steroids in the form of dexamethasone (5) Foot drop, bilateral: Plan: from lumbar radiculopathy - wears braces noted will be more pertinent later in her stay when PT/OT evals are requested (6) Hyperlipidemia: Plan: Continue Rosuvastatin as long as AST/ALT remain stable (7) HTN (hypertension): Plan: Controlled at this time (8) Chronic radicular lumbar pain: Plan: Continue Tramadol prn, gabpentin, baclofen, tylenol (9) Restless leg syndrome: Plan: Cont pramipexole at HS (10) Urinary Incontinence: Plan: goodwin placed due to IV diuretics and inability to move without significant dyspnea (11) GERD (gastroesophageal reflux disease): Plan: Continue BID pantoprazole (12) DMII (diabetes mellitus, type 2): Plan: uncontrolled 2nd to steroids add lantus 10 units qam adjust novolog (13) Morbid obesity with BMI of 50.0-59.9, adult: Plan: BMI 49.8 (14) Hydroureteronephrosis: Plan: b/l, as seen on CT nothing to do at this time 2nd to urinary reflux disease?? this is a risk factor for recurrent UTI, CKD, etc after recovering from COVID -- send to urology (15) Enteritis: Plan: 2nd to COVID-19 infection should be self-limiting as time goes on (16) VIKKI (obstructive sleep apnea): Plan: BIPAP HS (17) DVT prophylaxis: Plan: lovenox 50mg BID Plan: care d/w respiratory, nursing, and pulmonary care d/w son by phone total care coordination time today 70 minutes including multiple bedside visits, multiple phone calls, management of acute resp failure, etc Admission and Anticipated Discharge Date Admission Date: June 29, 2021 Subjective events of last 24 hours noted patient wore BIPAP all night last pm attempts to remove BIPAP this am were initially unsuccessful (desatted to 70s) during my bedside rounds patient was lying flat in bed respiratory came in about the same time - we switched BIPAP to wall-mounted high-flow 15 liters initially sats were about 90% on the 15 L but ultimately desatted to low 80s we then discontinued the wall-mounted high-flow and changed her to vapotherm 50 L, 100% FiO2 patient states she simply feels terrible severe fatigue, weak, coughing, dyspnea, no appetite received 1 dose of COVID vaccine about 1-2 weeks ago only patient continues with loose stool but no significant abdominal pain taste/smell have NOT returned before leaving the COVID unit I was told by staff that patient was desatting to the 80s on 100% FiO2 I re-entered her room; we got Ms Manning on her side and sats improved quickly to >90% discussed Baricitinib therapy with on-call pulmonary pulmonary gave approval for such as she is a candidate Review of Systems Review of Systems: gen - no fevers, but having cold chills; poor appetite, severe fatigue HEENT - nasal congestion, sore throat, loss of taste/smell CV - no chest pain pulm - no hemoptysis GI - no vomiting Physical Exam Physical Exam: gen - mild tachypnea, but no distress otherwise; morbidly ob oxana; looks sick/ill and exhausted mouth - MM dry neck - no obvious JVD heart - RRR, s1 s2 lungs - faint bibasilar rales, decreased BS b/l bases, no wheeze; mild tachypnea abd - softly distended but nontender, BS+, no HSM ext - no edema, pulses 2+ b/l skin - no rash, mild pallor psych - a/o x 3 Results & Data Results & Data ([facility]) Vital Signs (Past 12 Hours) Vital Signs Temp Pulse Pulse Resp BP Pulse Ox 06/30/21 12:09 72 26 H 92 06/30/21 11:59 74 24 92 06/30/21 11:30 36.2 C L 76 36 H 98/63 L 92 06/30/21 10:54 36.4 C L 79 18 101/65 93 06/30/21 10:44 81 33 H 91 06/30/21 07:53 84 28 H 92 06/30/21 07:51 81 22 92 06/30/21 07:35 36.5 C 77 19 106/79 94 06/30/21 04:03 36.5 C 77 20 101/67 89 L 06/30/21 02:21 77 28 H 90 06/30/21 02:00 80 Laboratory Results Laboratory Results - last 24 hr 06/30/21 06/30/21 06/30/21 01:43 03:22 05:35 WBC RBC Hgb Hct MCV MCH MCHC RDW Std Deviation RDW Coeff of Shant Plt Count MPV Immature Gran % (Auto) Neut % (Auto) Lymph % (Auto) [place] % (Auto) Eos % (Auto) Baso % (Auto) Neut # (Auto) Lymph # (Auto) [place] # (Auto) Eos # (Auto) Baso # (Auto) Immature Gran # (Auto) Sample Site R Radial POC pH 7.37 POC pCO2 47 H POC pO2 74 L POC HCO3 27 H POC Total CO2 28 POC Base Excess 1.0 POC ABG O2 Sat 94.0 Claude Test Pass O2 Delivery Device BIPAP Sodium 135 L Potassium 3.9 Chloride 102 Carbon Dioxide 26 Anion Gap 7.0 BUN 16 Creatinine 0.85 Est Cr Clr Drug Dosing 79.4 Est GFR ( Amer) 81.6 Est GFR (Non-Af Amer) 70.4 BUN/Creatinine Ratio 19.4 Glucose 197 H POC Glucose 235 H Calcium 8.6 Magnesium 1.7 L C-Reactive Protein 10.40 H NT-Pro-B Natriuret Pep 1475 H Hepatitis C Ab Screen 06/30/21 06/30/21 06/30/21 05:35 05:35 08:11 WBC 4.43 L RBC 3.71 L Hgb 11.7 L Hct 35.2 L MCV 94.9 MCH 31.5 MCHC 33.2 RDW Std Deviation 49.1 H RDW Coeff of Shant 14.0 Plt Count 155 MPV 9.9 Immature Gran % (Auto) 0.2 Neut % (Auto) 56.2 Lymph % (Auto) 26.6 [place] % (Auto) 16.5 Eos % (Auto) 0.0 Baso % (Auto) 0.5 Neut # (Auto) 2.49 Lymph # (Auto) 1.18 L [place] # (Auto) 0.73 H Eos # (Auto) 0.00 Baso # (Auto) 0.02 Immature Gran # (Auto) 0.01 Sample Site POC pH POC pCO2 POC pO2 POC HCO3 POC Total CO2 POC Base Excess POC ABG O2 Sat Claude Test O2 Delivery Device Sodium Potassium Chloride Carbon Dioxide Anion Gap BUN Creatinine Est Cr Clr Drug Dosing Est GFR ( Amer) Est GFR (Non-Af Amer) BUN/Creatinine Ratio Glucose POC Glucose 171 H Calcium Magnesium C-Reactive Protein NT-Pro-B Natriuret Pep Hepatitis C Ab Screen Neg 06/30/21 06/30/21 06/30/21 12:17 16:36 20:31 WBC RBC Hgb Hct MCV MCH MCHC RDW Std Deviation RDW Coeff of Shant Plt Count MPV Immature Gran % (Auto) Neut % (Auto) Lymph % (Auto) [place] % (Auto) Eos % (Auto) Baso % (Auto) Neut # (Auto) Lymph # (Auto) [place] # (Auto) Eos # (Auto) Baso # (Auto) Immature Gran # (Auto) Sample Site POC pH POC pCO2 POC pO2 POC HCO3 POC Total CO2 POC Base Excess POC ABG O2 Sat Claude Test O2 Delivery Device Sodium Potassium Chloride Carbon Dioxide Anion Gap BUN Creatinine Est Cr Clr Drug Dosing Est GFR ( Amer) Est GFR (Non-Af Amer) BUN/Creatinine Ratio Glucose POC Glucose 186 H 236 H 225 H Calcium Magnesium C-Reactive Protein NT-Pro-B Natriuret Pep Hepatitis C Ab Screen Diagnostic Findings Chest X-Ray 06/30/21 02:58 XR chest 1V portable CLINICAL HISTORY: resp distress TECHNIQUE: Single frontal radiograph of the chest was obtained. Comparison: Comparison is made to chest one view 06/29/2021 FINDINGS: No lines and tubes are seen. Cardiomegaly is noted. Diffuse airspace opacities are noted bilaterally. Possible small bilateral pleural effusions. IMPRESSION: 1. Multifocal airspace opacities which may represent atelectasis, pneumonia, an d/or aspiration. 2. Cardiomegaly. 3. Cannot exclude small bilateral pleural effusions. ACT 112: Negative or not required by law. Electronically signed by: Hussain Freedman M.D. 06/30/2021 8:45 AM PG Care Time/CCT Total # of Minutes Spent Total Time Spent with Patient: Total time spent is greater than 50% in coordination of care (as documented) at patient's floor/unit and/or counseling patient: Prolonged Care Time Prolonged Care Time: Yes 70 Coding Level of Care Code 78240 Subseq Hosp Care Lvl 3 (25 - SIGNIFICANT, SEPARATELY IDENTIFIABLE ) Diagnoses COPD (chronic obstructive pulmonary disease) J44.9 Foot drop, bilateral M21.371; M21.372 Hyperlipidemia E78.5 HTN (hypertension) I10 Chronic radicular lumbar pain M54.16; G89.29 Restless leg syndrome G25.81 Urinary Incontinence R32 GERD (gastroesophageal reflux disease) K21.9 DMII (diabetes mellitus, type 2) E11.9 Morbid obesity with BMI of 50.0-59.9, adult E66.01; Z68.43 Acute respiratory failure with hypoxia and hypercapnia J96.01; J96.02 Pneumonia due to COVID-19 virus U07.1; J12.82 Acute diastolic CHF (congestive heart failure) I50.31 Hydroureteronephrosis N13.30 Enteritis K52.9 DVT prophylaxis Z29.9 VIKKI (obstructive sleep apnea) G47.33 Additional Codes Prolonged Care Time - Prolonged Care Time: Yes ([id number]) Time Spent (min) 70
[2021-06-30] MEDS: 4 mg Once Daily x14 days PO SCH (15:02)
[2021-06-30] MEDS: ROSUVASTATIN CALCIUM 10 MG TAB PO SCH (15:07)
[2021-06-30] MEDS: MIRABEGRON ER 25 MG TAB PO SCH (15:07)
[2021-06-30] MEDS: ACETAMINOPHEN 325 MG TAB PO PRN (17:59)
[2021-06-30] MEDS: REMDESIVIR 100 MG in SODIUM CHLORIDE 0.9% 230 ML IV SCH (19:55)
[2021-06-30] MEDS: SODIUM CHLORIDE 0.9% 10ML FLUSH IV SCH (19:57)
[2021-07-01] MEDS: ALBUTEROL HFA 8 GM INHALER INH SCH ×4 (00:46→19:57)
[2021-07-01] MEDS ORDERED: SODIUM CHLORIDE 0.9% 1000ML 250 ML IV ONE (05:23)
[2021-07-01 07:50] LABS: Hematocrit (blood only) 34.3 % (37-47); Hemoglobin 11.2 g/dL (12.0-16.0); Mean Corpuscular Hemoglobin 31.2 pg (25-34); Mean Corpuscular Hgb Conc 32.7 g/dL (32-36); Mean Corpuscular Volume 95.5 fL (80-100); Mean Platelet Volume 10.3 fL (7.4-10.4); Platelet Count 178 K/uL (130-400); RDW Coefficient of Variation 13.9 % (11.5-14.5); RDW Standard Deviation 48.7 fL (36.4-46.3); Red Blood Count 3.59 M/uL (4.2-5.4); White Blood Count 3.89 K/uL (4.8-10.8)
[2021-07-01 08:13] LABS: BUN Creatinine Ratio 24.4 (10-20); C Reactive Protein 5.52 mg/dl (0-0.29); Calcium 8.4 mg/dl (8.5-10.1); Creatinine Clr Calc Pharmacy 88.9 ml/min; Est GFR (African American) 90.5 ml/min; Est GFR (Non-African American) 78.1 ml/min; Magnesium 2.2 mg/dl (1.8-2.4); Potassium 4.2 mmol/L (3.5-5.1)
--- NOTE | 2021-07-01 08:14 | Electrocardiogram Report ---
Test Reason : Blood Pressure : / mmHG Vent. Rate : 070 BPM Atrial Rate : 070 BPM P-R Int : 162 ms QRS Dur : 088 ms QT Int : 420 ms P-R-T Axes : 043 029 043 degrees QTc Int : 453 ms Normal sinus rhythm Low voltage QRS Borderline ECG When compared with ECG of 29-JUN-2021 12:59, No significant change was found Confirmed by Justin Meza ([id number]) on 07/01/2021 8:14:01 AM Referred By: REFERRED SELF Confirmed By:Justin Meza
[2021-07-01] MEDS: dexAMETHasone 6 MG in SYRINGE 0 ML IV SCH (08:25)
[2021-07-01] MEDS: DULoxetine HCL 30 MG CAP PO SCH ×2 (08:25→21:23)
[2021-07-01] MEDS: POTASSIUM CHLORIDE 10 MEQ TABCR PO SCH ×2 (08:25→17:32)
[2021-07-01] MEDS: GABAPENTIN 300 MG CAP PO SCH ×2 (08:26→21:23)
[2021-07-01] MEDS: BACLOFEN 10 MG TAB PO SCH ×2 (08:26→21:23)
[2021-07-01] MEDS: PANTOprazole 40 MG TAB PO SCH ×2 (08:26→21:24)
[2021-07-01] MEDS: MIRABEGRON ER 25 MG TAB PO SCH (08:26)
[2021-07-01] MEDS: ROSUVASTATIN CALCIUM 10 MG TAB PO SCH (08:26)
[2021-07-01] MEDS: FLUTICASONE PROPIONATE NA SPR 16 GM BTL NAE PRN ×2 (08:27→21:24)
[2021-07-01] MEDS: ENOXAPARIN INJ 60 MG/0.6 ML SYR SQ SCH ×2 (08:27→21:24)
[2021-07-01] MEDS: 4 mg Once Daily x14 days PO SCH (08:36)
[2021-07-01] MEDS: ACETAMINOPHEN 325 MG TAB PO PRN (08:36)
[2021-07-01] MEDS: INSULIN ASPART 100 UNITS/ML 3 ML PEN SC SCH ×4 (09:40→21:26)
[2021-07-01] MEDS: INSULIN GLARGINE SOLOSTAR 100 UNITS/ML 3 ML PEN SC SCH (09:40)
--- NOTE | 2021-07-01 19:07 | XCELERA ---
[id number] \\[id number]
--- NOTE | 2021-07-01 20:48 | Hospitalist Progress Note ---
Date of Service July 01, 2021 Assessment & Plan (1) Pneumonia due to COVID-19 virus: Plan: severe, with resulting acute hypoxic/hypercapneic respiratory failure. BIPAP at HS. HFNC during the day. O2 requirements modestly better today but still quite ill. Day #2 of baricitinib. Cont dexamethasone 6mg IV daily; day #3 today. Cont 5-day course of Remdesivir; day #3 today. Needs more pulmonary toilet -- incentive and flutter valve when on HFNC. She tried proning yesterday - couldn't get comfortable; aborted that attempt. Needs side positioning then. Echo pending - I am uncertain regarding her overall volume status; doesn't examine volume overloaded today, however. (2) Acute respiratory failure with hypoxia and hypercapnia: Plan: 2nd to #1 and #3 - supportive care, HFNC during the day, BIPAP at HS (3) Acute diastolic CHF (congestive heart failure): Plan: suspected at admission. s/p lasix x 2 doses but then blood pressure fell with such. hold additional doses. await echo. (4) COPD (chronic obstructive pulmonary disease): Plan: Cont home inhalers and scheduled ventolin 2 puffs q6h scheduled Cont steroids in the form of dexamethasone (5) Foot drop, bilateral: Plan: from lumbar radiculopathy - wears braces noted will be more pertinent later in her stay when PT/OT evals are requested (6) Hyperlipidemia: Plan: Mild rhabdo - hold statin for now (7) HTN (hypertension): Plan: Controlled at this time (8) Chronic radicular lumbar pain: Plan: Continue Tramadol prn, gabpentin, baclofen, tylenol (9) Restless leg syndrome: Plan: Cont pramipexole at HS (10) Urinary Incontinence: Plan: goodwin placed due to IV diuretics and inability to move without significant dyspnea (11) GERD (gastroesophageal reflux disease): Plan: Continue BID pantoprazole (12) DMII (diabetes mellitus, type 2): Plan: uncontrolled 2nd to steroids adjust novolog increase lantus (13) Morbid obesity with BMI of 50.0-59.9, adult: Plan: BMI 50-51 (14) Hydroureteronephrosis: Plan: b/l, as seen on CT nothing to do at this time 2nd to urinary reflux disease?? this is a risk factor for recurrent UTI, CKD, etc after recovering from COVID -- send to urology (15) Enteritis: Plan: 2nd to COVID-19 infection should be self-limiting as time goes on mild stomach upset but no vomiting and minimal diarrhea (16) VIKKI (obstructive sleep apnea): Plan: BIPAP HS (17) DVT prophylaxis: Plan: lovenox 50mg BID (18) Rhabdomyolysis due to COVID-19: Plan: mild hold statin repeat CPK in 48 hours Plan: care d/w son by phone 06/30/21 left message for daughter on her voicemail 07/01/21 Admission and Anticipated Discharge Date Admission Date: June 29, 2021 Subjective tele overnight wnl she remains very weak and fatigued was able to wear the BIPAP all night the low BPs overnight "made her nervous" but she denies any dizziness during the day has tolerated HFNC minimal cough no dyspnea at rest but dyspneic with any activity staff report that when the HFNC came out of nose inadvertently today she desatted to the 70s minimal appetite Review of Systems Review of Systems: gen - no fevers or chills; extreme fatigue/weakness CV - no chest pain or orthopnea pulm - no significant cough or hemoptysis GI - mild stomach upset/nausea/dyspepsia; some diarrhea still Physical Exam Physical Exam: gen - looks ill & tired; no distress; awake, alert mouth - MM dry neck - no obvious JVD heart - RRR, s1 s2, no obvious murmur lungs - faint bibasilar rales, decreased BS b/l bases, no wheeze; no increased work of breathing abd - soft, nontender, BS+, no HSM ext - no edema, pulses 2+ b/l skin - no rash, turgor poor psych - a/o x 3 Results & Data Results & Data ([facility]) Vital Signs (Past 12 Hours) Vital Signs Temp Pulse Resp BP Pulse Ox 07/01/21 19:57 63 20 98 07/01/21 19:00 36.9 C 58 L 18 113/54 L 93 07/01/21 16:39 36.8 C 60 12 110/62 92 07/01/21 16:05 68 20 94 07/01/21 12:54 69 20 93 07/01/21 12:33 36.6 C 61 12 130/76 93 07/01/21 11:08 75 26 H 93 Laboratory Results Laboratory Results - last 24 hr 07/01/21 07/01/21 07/01/21 06:35 06:35 07:59 WBC 3.89 L RBC 3.59 L Hgb 11.2 L Hct 34.3 L MCV 95.5 MCH 31.2 MCHC 32.7 RDW Std Deviation 48.7 H RDW Coeff of Shant 13.9 Plt Count 178 MPV 10.3 Sodium 140 Potassium 4.2 Chloride 104 Carbon Dioxide 29 Anion Gap 7.0 BUN 19 H Creatinine 0.78 Est Cr Clr Drug Dosing 88.9 Est GFR ( Amer) 90.5 Est GFR (Non-Af Amer) 78.1 BUN/Creatinine Ratio 24.4 H Glucose 171 H POC Glucose 169 H Calcium 8.4 L Magnesium 2.2 AST 63 H ALT 22 Total Creatine Kinase 680 H C-Reactive Protein 5.52 H 07/01/21 07/01/21 07/01/21 12:14 16:37 20:07 WBC RBC Hgb Hct MCV MCH MCHC RDW Std Deviation RDW Coeff of Shant Plt Count MPV Sodium Potassium Chloride Carbon Dioxide Anion Gap BUN Creatinine Est Cr Clr Drug Dosing Est GFR ( Amer) Est GFR (Non-Af Amer) BUN/Creatinine Ratio Glucose POC Glucose 237 H 409 H* 135 H Calcium Magnesium AST ALT Total Creatine Kinase C-Reactive Protein PG Care Time/CCT Total # of Minutes Spent Total Time Spent with Patient: Total time spent is greater than 50% in coordination of care (as documented) at patient's floor/unit and/or counseling patient: Coding Level of Care Code 08626 Subseq Hosp Care Lvl 3 Diagnoses Pneumonia due to COVID-19 virus U07.1; J12.82 Acute respiratory failure with hypoxia and hypercapnia J96.01; J96.02 Acute diastolic CHF (congestive heart failure) I50.31 COPD (chronic obstructive pulmonary disease) J44.9 Foot drop, bilateral M21.371; M21.372 Hyperlipidemia E78.5 HTN (hypertension) I10 Chronic radicular lumbar pain M54.16; G89.29 Restless leg syndrome G25.81 Urinary Incontinence R32 GERD (gastroesophageal reflux disease) K21.9 DMII (diabetes mellitus, type 2) E11.9 Morbid obesity with BMI of 50.0-59.9, adult E66.01; Z68.43 Hydroureteronephrosis N13.30 Enteritis K52.9 VIKKI (obstructive sleep apnea) G47.33 DVT prophylaxis Z29.9 Rhabdomyolysis due to COVID-19 U07.1; M62.82
[2021-07-01] MEDS: FLUTICASONE/VILANTEROL 100/25MCG 14 PUFFS/INHALER INH SCH (21:10)
[2021-07-01] MEDS: REMDESIVIR 100 MG in SODIUM CHLORIDE 0.9% 230 ML IV SCH (21:16)
[2021-07-01] MEDS: SODIUM CHLORIDE 0.9% 10ML FLUSH IV SCH (21:16)
[2021-07-01] MEDS: MONTELUKAST SODIUM 10 MG TABLET PO SCH (21:24)
[2021-07-01] MEDS: PRAMIPEXOLE DIHYDROCHLO 0.5 MG TAB PO SCH (21:24)
[2021-07-02] MEDS: ALBUTEROL HFA 8 GM INHALER INH SCH ×4 (01:35→19:42)
[2021-07-02 08:36] LABS: BUN Creatinine Ratio 25.4 (10-20); Calcium 8.5 mg/dl (8.5-10.1); Creatinine Clr Calc Pharmacy 88.9 ml/min; Est GFR (African American) 90.5 ml/min; Est GFR (Non-African American) 78.1 ml/min; Potassium 4.5 mmol/L (3.5-5.1)
[2021-07-02] MEDS: INSULIN ASPART 100 UNITS/ML 3 ML PEN SC SCH ×4 (09:00→21:00)
[2021-07-02] MEDS ORDERED: FUROSEMIDE 40 MG/4 ML VIAL IV ONE ×2 (09:10→12:00)
[2021-07-02] MEDS ORDERED: INSULIN GLARGINE SOLOSTAR 100 UNITS/ML 3 ML PEN SC SCH (09:30)
[2021-07-02] MEDS ORDERED: FUROSEMIDE INJ 20 MG/2 ML VIAL IV ONE (11:32)
[2021-07-02] MEDS: ENOXAPARIN INJ 60 MG/0.6 ML SYR SQ SCH ×2 (12:03→21:36)
[2021-07-02] MEDS: dexAMETHasone 6 MG in SYRINGE 0 ML IV SCH (12:03)
[2021-07-02] MEDS: POTASSIUM CHLORIDE 10 MEQ TABCR PO SCH ×2 (12:32→18:27)
[2021-07-02] MEDS: BACLOFEN 10 MG TAB PO SCH (12:33)
[2021-07-02] MEDS: DULoxetine HCL 30 MG CAP PO SCH ×2 (12:33→21:38)
[2021-07-02] MEDS: 4 mg Once Daily x14 days PO SCH (12:33)
[2021-07-02] MEDS: MIRABEGRON ER 25 MG TAB PO SCH (12:33)
[2021-07-02] MEDS: GABAPENTIN 300 MG CAP PO SCH ×2 (12:33→21:38)
[2021-07-02] MEDS: PANTOprazole 40 MG TAB PO SCH ×2 (12:34→21:38)
--- NOTE | 2021-07-02 16:48 | Hospitalist Progress Note ---
Date of Service July 02, 2021 Assessment & Plan (1) Pneumonia due to COVID-19 virus: Plan: severe, with resulting acute hypoxic/hypercapneic respiratory failure. she is worse today clinically and radiographically. BIPAP at HS. HFNC during the day requiring high flow and high O2 quantity. VBG checked - pH and pCO2 acceptable. Procal negative; deferring on abx for now. Day #3 of baricitinib. Cont dexamethasone 6mg IV daily; day #4 today. Cont 5-day course of Remdesivir; day #4 today. Needs more pulmonary toilet -- incentive and flutter valve when on HFNC. Again discussed proning with her - she will try, but it is difficult even in the side positioning. Likely with element of acute diastolic CHF - diurese. I formally consulted pulmonary - prognosis is guarded, and risk of intubation/mech ventilation is high. (2) Acute respiratory failure with hypoxia and hypercapnia: Plan: 2nd to #1 and #3 - supportive care, HFNC during the day, BIPAP at HS (3) Acute diastolic CHF (congestive heart failure): Plan: echo with preserved EF but IVC dilated. diuresed today - 2 L of urine w/ such. bmp am; likely to need more IV lasix tomorrow. (4) COPD (chronic obstructive pulmonary disease): Plan: Cont home inhalers and scheduled ventolin 2 puffs q6h scheduled Cont steroids in the form of dexamethasone (5) Foot drop, bilateral: Plan: from lumbar radiculopathy - wears braces noted will be more pertinent later in her stay when PT/OT evals are requested (6) Hyperlipidemia: Plan: Mild rhabdo - hold statin for now (7) HTN (hypertension): Plan: Controlled at this time (8) Chronic radicular lumbar pain: Plan: Continue gabapentin and tylenol hold baclofen and tramadol as she is very sleepy (9) Restless leg syndrome: Plan: Cont pramipexole at HS (10) Urinary Incontinence: Plan: goodwin (11) GERD (gastroesophageal reflux disease): Plan: Continue BID pantoprazole (12) DMII (diabetes mellitus, type 2): Plan: uncontrolled 2nd to steroids adjusted both insulins overnight (13) Morbid obesity with BMI of 50.0-59.9, adult: Plan: BMI 50-51 (14) Hydroureteronephrosis: Plan: b/l, as seen on CT nothing to do at this time 2nd to urinary reflux disease?? this is a risk factor for recurrent UTI, CKD, etc after recovering from COVID -- send to urology (15) Enteritis: Plan: 2nd to COVID-19 infection no further diarrhea (16) VIKKI (obstructive sleep apnea): Plan: BIPAP HS and prn (17) DVT prophylaxis: Plan: lovenox 50mg BID (18) Rhabdomyolysis due to COVID-19: Plan: mild hold statin repeat CPK in am Plan: care d/w son by phone 06/30/21 and again today discussed that his mother's pneumonia is worsening and that we are providing all meds and care as needed to hopefully avoid intubation discussed pulmonary consult with him he, too, has COVID and is recovering at home left message for daughter on her voicemail 07/01/21 Admission and Anticipated Discharge Date Admission Date: June 29, 2021 Subjective patient with poor day today very tired/weak/fatigued just trying to get on her side is challenging she used BIPAP all night last pm, and most of today was trialed on HFNC this afternoon - required large settings to maintain O2 sat in 90-92% range she c/o thirst c/o dyspnea no appetite 2 L of UOP with her lasix this am tele overnight wnl Review of Systems Review of Systems: gen - no fevers, no chills - but extreme weakness pulm - minimal cough; dyspnea with any movement GI - no pain or nausea cv - orthopnea present Physical Exam Physical Exam: gen - looks very ill, exhausted appearing; dyspnea with any movement in the bed mouth - MM dry neck - no obvious JVD heart - RRR, s1 s2, no obvious murmur lungs - faint bibasilar rales, decreased BS b/l bases, no wheeze; tachypneic if she moves in the bed abd - soft, nontender, BS+, no HSM; minimal distension ext - no edema, pulses 2+ b/l skin - no rash, turgor poor psych - a/o x 3 Results & Data Results & Data ([facility]) Vital Signs (Past 12 Hours) Vital Signs Temp Pulse Pulse Resp BP Pulse Ox 07/02/21 16:00 36.9 C 65 18 112/69 92 11/18/21 15:56 91 H 22 89 L 07/02/21 12:09 36.0 C L 64 111/61 91 07/02/21 11:16 54 L 35 H 92 07/02/21 07:54 36.7 C 67 25 H 117/70 94 07/02/21 06:34 28 H 92 07/02/21 05:54 56 L 20 90 Laboratory Results Laboratory Results - last 24 hr 07/01/21 07/02/21 07/02/21 20:07 07:39 07:39 Sodium 143 Potassium 4.5 Chloride 107 Carbon Dioxide 29 Anion Gap 7.0 BUN 20 H Creatinine 0.78 Est Cr Clr Drug Dosing 88.9 Est GFR ( Amer) 90.5 Est GFR (Non-Af Amer) 78.1 BUN/Creatinine Ratio 25.4 H Glucose 98 POC Glucose 135 H Calcium 8.5 AST 49 H ALT 20 C-Reactive Protein 2.18 H 07/02/21 07/02/21 07:44 11:46 Sodium Potassium Chloride Carbon Dioxide Anion Gap BUN Creatinine Est Cr Clr Drug Dosing Est GFR ( Amer) Est GFR (Non-Af Amer) BUN/Creatinine Ratio Glucose POC Glucose 99 72 Calcium AST ALT C-Reactive Protein Diagnostic Findings Chest X-Ray 07/02/21 16:44 SINGLE VIEW CHEST CLINICAL HISTORY: Hypoxia. Covid pneumonia. FINDINGS: An AP, portable, upright chest radiograph is compared to study dated 06/30/2021 and correlated with chest CT dated 06/29/2021. The Examination is severely degraded by wires overlying the patient common portable technique, and prone positioning. The heart is enlarged. Multifocal airspace consolidation throughout both lungs appears worsened as compared to 06/30/2021. No large pleural effusion or pneumothorax is seen. The bony thorax is grossly intact. A left shoulder arthroplasty is in place. Postoperative change is noted in the right humeral head. IMPRESSION: Multifocal airspace consolidation is consistent with the reported history of viral pneumonia. This appears worsened as compared to 06/30/2021. ACT 112: Negative or not required by law. Electronically signed by: Dario Craven M.D. 07/02/2021 7:47 PM PG Care Time/CCT Total # of Minutes Spent Total Time Spent with Patient: Total time spent is greater than 50% in coordination of care (as documented) at patient's floor/unit and/or counseling patient: Coding Level of Care Code 04907 Subseq Hosp Care Lvl 3 Diagnoses Pneumonia due to COVID-19 virus U07.1; J12.82 Acute respiratory failure with hypoxia and hypercapnia J96.01; J96.02 Acute diastolic CHF (congestive heart failure) I50.31 COPD (chronic obstructive pulmonary disease) J44.9 Foot drop, bilateral M21.371; M21.372 Hyperlipidemia E78.5 HTN (hypertension) I10 Chronic radicular lumbar pain M54.16; G89.29 Restless leg syndrome G25.81 Urinary Incontinence R32 GERD (gastroesophageal reflux disease) K21.9 DMII (diabetes mellitus, type 2) E11.9 Morbid obesity with BMI of 50.0-59.9, adult E66.01; Z68.43 Hydroureteronephrosis N13.30 Enteritis K52.9 VIKKI (obstructive sleep apnea) G47.33 DVT prophylaxis Z29.9 Rhabdomyolysis due to COVID-19 U07.1; M62.82
[2021-07-02 17:57] LABS: pH VBG 7.42 (7.36-7.41)
--- NOTE | 2021-07-02 19:48 | XRay Report ---
SINGLE VIEW CHEST CLINICAL HISTORY: Hypoxia. Covid pneumonia. FINDINGS: An AP, portable, upright chest radiograph is compared to study dated 06/30/2021 and correla pam with chest CT dated 06/29/2021. The Examination is severely degraded by wires overlying the patie nt common portable technique, and prone positioning. The heart is enlarged. Multifocal airspace conso lidation throughout both lungs appears worsened as compared to 06/30/2021. No large pleural effusion or pneumothorax is seen. The bony thorax is grossly intact. A left shoulder arthroplasty is in place. Postoperative change is noted in the right humeral head. IMPRESSION: Multifocal airspace consolidation is consistent with the reported history of viral pneumo saumya. This appears worsened as compared to 06/30/2021. ACT 112: Negative or not required by law. Electronically signed by: Dario Craven M.D. 07/02/2021 7:47 PM
[2021-07-02] MEDS: REMDESIVIR 100 MG in SODIUM CHLORIDE 0.9% 230 ML IV SCH (21:37)
[2021-07-02] MEDS: MONTELUKAST SODIUM 10 MG TABLET PO SCH (21:37)
[2021-07-02] MEDS: PRAMIPEXOLE DIHYDROCHLO 0.5 MG TAB PO SCH (21:37)
[2021-07-02] MEDS: FLUTICASONE PROPIONATE NA SPR 16 GM BTL NAE PRN (21:38)
[2021-07-02] MEDS: SODIUM CHLORIDE 0.9% 10ML FLUSH IV SCH (21:39)
[2021-07-02] MEDS: FLUTICASONE/VILANTEROL 100/25MCG 14 PUFFS/INHALER INH SCH (21:39)
[2021-07-03] MEDS: ALBUTEROL HFA 8 GM INHALER INH SCH ×2 (01:45→08:24)
[2021-07-03] MEDS: MoRPHine SULFATE 2 MG/ML CARP IV PRN ×2 (06:39→21:38)
[2021-07-03] MEDS: INSULIN ASPART 100 UNITS/ML 3 ML PEN SC SCH ×4 (08:30→22:26)
[2021-07-03] MEDS: dexAMETHasone 6 MG in SYRINGE 0 ML IV SCH (09:05)
[2021-07-03 09:06] LABS: Hematocrit (blood only) 39.4 % (37-47); Hemoglobin 12.8 g/dL (12.0-16.0); Mean Corpuscular Hemoglobin 31.8 pg (25-34); Mean Corpuscular Hgb Conc 32.5 g/dL (32-36); Mean Corpuscular Volume 97.8 fL (80-100); Mean Platelet Volume 9.8 fL (7.4-10.4); Platelet Count 195 K/uL (130-400); RDW Coefficient of Variation 13.8 % (11.5-14.5); RDW Standard Deviation 49.7 fL (36.4-46.3); Red Blood Count 4.03 M/uL (4.2-5.4); White Blood Count 7.36 K/uL (4.8-10.8)
[2021-07-03] MEDS: ENOXAPARIN INJ 60 MG/0.6 ML SYR SQ SCH ×2 (09:08→20:49)
[2021-07-03] MEDS: GABAPENTIN 300 MG CAP PO SCH ×2 (09:09→20:50)
[2021-07-03] MEDS: PANTOprazole 40 MG TAB PO SCH ×2 (09:09→20:50)
[2021-07-03] MEDS: MIRABEGRON ER 25 MG TAB PO SCH (09:09)
[2021-07-03] MEDS: DULoxetine HCL 30 MG CAP PO SCH ×2 (09:10→20:49)
[2021-07-03] MEDS: POTASSIUM CHLORIDE 10 MEQ TABCR PO SCH ×3 (09:30→18:00)
[2021-07-03] MEDS: 4 mg Once Daily x14 days PO SCH (09:30)
[2021-07-03] MEDS: FUROSEMIDE 40 MG/4 ML VIAL IV SCH ×2 (09:31→11:38)
[2021-07-03 09:53] LABS: BUN Creatinine Ratio 26.8 (10-20); Calcium 8.9 mg/dl (8.5-10.1); Creatinine Clr Calc Pharmacy 93.3 ml/min; Est GFR (African American) 96.5 ml/min; Est GFR (Non-African American) 83.2 ml/min; Potassium 3.7 mmol/L (3.5-5.1)
[2021-07-03] MEDS ORDERED: NYSTATIN CR 15 GM TUBE EXT SCH (10:45)
[2021-07-03] MEDS ORDERED: MICONAZOLE NITRATE POWDER 43 GM EXT PRN (12:10)
--- NOTE | 2021-07-03 15:18 | Pulmonary Consultation ---
Date of Consultation July 03, 2021 Assessment & Plan (1) COVID-19: (2) Hypoxia: (3) Acute respiratory failure with hypoxia and hypercapnia: (4) VIKKI (obstructive sleep apnea): (5) Rhabdomyolysis due to COVID-19: (6) COPD (chronic obstructive pulmonary disease): (7) Morbid obesity: (8) Asthma: Attending: Dr. Vieyra Impression: This is a 70-year-old female that received 1 dose of Pfizer vaccination 06/04/2021. She developed signs of congestion and fever and presented to PCP June 23, 2021 and was started on Augmentin. Over the next several days she worsened and presented the emergency room 06/29/2021 where she reported that she had been found positive for Covid and was feeling worse. She was started on remdesivir, dexamethasone and supplemental oxygen. The next day she was started on baricitinib. She continues on high flow supplemental oxygen. Recommendations: 1. Covid/ARDs: * Continues to require high flow oxygen * Chest x-ray shows worsening of the multifocal opacities * Very concerned the patient may require endotracheal intubation with mechanical ventilation * Dexamethasone 6 mg IV daily day #4 * Remdesivir day #4 * Baricitinib 4 mg daily day #3 * Enoxaparin 50 mg SQ every 12 hours 2. Obstructive sleep apnea: * Patient last seen by Dr. Tony on 06/12/2021 * Currently on CPAP 10 cm of water with 3 L/min of oxygen bleed in * DME supplier is [facility] home care * Continue with CPAP/BiPAP at night as tolerated 3. Hypoxia: * Acute on chronic * Patient with history of nocturnal hypoxemia * No recent pulmonary function tests * Multifactorial including Covid/ARDs * Continue treatment for Covid as above 4. Mixed obstructive/restrictive disease: * Home medications include albuterol inhaler, Breo Ellipta, Flonase, montelukast. * Continue fluticasone/Vilanterol (ICS/LABA) while inpatient * Continue with steroids for Covid * PFTs are not available. Unsure how severe her obstructive diseases. Continue to titrate supplemental oxygen between 90 and 94% * Patient may need repeat PFTs 4 to 6 months after discharge from hospital 5. Morbid obesity: * BMI 51.6 kg/m * Unfortunately obesity lenses self to comorbidities with Covid pneumonia * Patient may benefit from endotracheal intubation with mechanical ventilation sooner than later * It is important that the patient continue to attempt to self pronate and use high flow oxygen/CPAP/BiPAP as prescribed Thank you for including us in the care of this patient. We will continue to follow along with you during this hospital stay. Patient seen and examined by Dr. Vieyra. Please refer to his addendum for fur ther recommendations and corrections. Supervising Physician Co-Signing Physician Notes I saw and evaluated the patient with Dario Celestin, and agree with findings and plan as documented in the note. 70-year-old female with past medical history of VIKKI, obstructive restrictive lung disease got 1 dose of Pfizer vaccination presented to the hospital with complaints of fever and congestion. She came to the ER on 06/29/2021 and she was diagnosed with COVID-19 She was started on Omnicef dexamethasone and further baricitinib is added Pulmonary consulted because of increasing oxygen demand At the time of examination patient was prone she was saturating 99% on 60 L, 100%, not in any respiratory distress I went down to 80 L and she was still saturating 99% As per the nurse patient had breakfast as well as lunch while on high flow 60 L 100% Constitutional: No acute distress HEENT: EOMI, PERRLA Respiratory system: Decreased air entry bilaterally, no wheeze, rhonchi, positive crackles bilaterally CVS: S1-S2 positive, no murmurs or gallops, distant heart sounds Abdomen: Soft, nontender, nondistended, positive bowel sounds x4, obese Extremities: +2 pulses bilaterally radialis/ dorsalis pedis, no cyanosis, no edema Neuro: Awake alert oriented x3 Psych: Normal mood and affect G/U: Positive Pinto Plan: In/out: -2200, urine output 2850 Lasix 40 mg were given today as well Continue with CPAP while patient is sleeping. Can go up on CPAP to a pressure of 12-14 if she is able to tolerate it Continue with O2 supplementation to keep oxygen saturation between 90-92%. Continue with awake proning Continue with incentive spirometry Continue with flutter valve. Recommend patient to be kept euvolemic to negative balance with diuretics as needed Please note the above document was generated using voice recognition software. It may contain grammatical, syntax or spelling errors.Any formal questions or concerns about the content, text or information contained within the body of this dictation should be directly addressed to the provider for clarification. History of Present Illness Attending Physician: Andrew Dieog History of Present Illness Attending: Dr. Vieyra This is a 70-year-old female with past medical history including obstructive sleep apnea, diastolic CHF, nocturnal hypoxemia, hyperglobulinemia, morbid obesity with BMI of 51.6 kg/m, history of aphasia, history of Lyme disease, hyperlipidemia, hypertension, chronic radicular lumbar pain, perforati on of left tympanic membrane, chronic bilateral lower extremity edema, venous stasis of lower extremities, trigger finger of right hand, atrophic vaginitis, COPD, GERD, restless leg syndrome, depression, asthma, diabetes mellitus type 2, and fibromyalgia. Patient was admitted 06/29/2021. Patient reported at the time that she started feeling ill 06/24/2021. She had placed a call to her primary care provider on 06/23/2021 and reported congestion and fever and was started on Augmentin. The PCP also recommended testing for Covid. She reportedly tested positive for Covid and was sent home with home therapy. Her symptoms worsened and she developed loss of taste and smell and presented to the emergency department. She again tested positive for Covid and was admitted to the Covid unit. Since that time patient has escalated to the point where she needs high flow oxygen. Echocardiogram was completed and shows preserved left ventricular ejection fraction. The inferior vena cava is severely dilated. The right ventricle is moderately dilated. There is also some left ventricular hypertrophy. Otherwise no grossly abnormal findings. Patient was started on supplemental oxygen and required high flow nasal cannula. Patient was also started on remdesivir and dexamethasone6 mg IV daily. Patient continues to have loss of taste and smell. Overall she feels fatigued. She reports that she is attempting to self pronate but at the minimum is rotating sides. Baricitinib was started 06/30/2021. Patient received her first dose of COVID-19 Pfizer vaccine 06/04/2021. Allergies Allergy/AdvReac Type Severity Reaction Status Date / Time cetirizine Allergy Intermediate RASH Verified 06/12/21 10:17 metformin AdvReac Unknown GI upset Verified 06/12/21 10:17 sulfamethoxazole AdvReac severe dry Verified 06/12/21 10:17 [From Bactrim] mouth trimethoprim [From Bactrim] AdvReac severe dry Verified 06/12/21 10:17 mouth Home Medications Medication Instructions Recorded Confirmed Type cholecalciferol (vitamin D3) 25 3,000 units PO QAM cap 01/26/19 06/29/21 History mcg (1,000 unit) capsule biotin 5,000 mcg disintegrating 5,000 mcg PO QAM 04/18/19 06/29/21 History tablet acetaminophen 325 mg tablet 325 mg PO QID PRN 02/28/20 06/29/21 History (Tylenol) pramipexole 0.5 mg tablet (Mirapex) 0.5 mg PO HS #90 tab 08/25/20 06/29/21 Rx montelukast 10 mg tablet 10 mg PO HS #90 tab 10/20/20 06/29/21 Rx (Singulair) furosemide 40 mg tablet (Lasix) 40 mg PO QAM #90 tab 10/24/20 06/29/21 Rx gabapentin 300 mg capsule 300 mg PO BID #60 cap 11/07/20 06/29/21 Rx albuterol sulfate 2.5 mg INH QID PRN #90 ml 01/05/21 06/29/21 Rx albuterol sulfate 90 mcg/actuation 2 puff INH Q6H PRN #18 gm 01/05/21 06/29/21 Rx aerosol inhaler duloxetine 30 mg capsule,delayed 30 mg PO BID #180 cap 04/02/21 06/29/21 Rx release lorazepam 0.5 mg tablet 0.5 mg PO BID PRN #30 tab 04/02/21 06/29/21 Rx tramadol 50 mg tablet 100 mg PO Q6H PRN #90 tab 04/02/21 06/29/21 Rx potassium chloride 10 mEq 10 meq PO BID #60 cap 04/30/21 06/29/21 Rx capsule,extended release baclofen 10 mg tablet 10 mg PO BID #60 tab 05/01/21 06/29/21 Rx fluticasone furoate 100 1 inh INHALATION HS 05/09/21 06/29/21 History mcg-vilanterol 25 mcg/dose inhalation powder (Breo Ellipta) pantoprazole 40 mg tablet,delayed 40 mg PO BID 05/09/21 06/29/21 History release rosuvastatin 10 mg tablet 10 mg PO QAM 05/09/21 06/29/21 History fluticasone propionate 50 2 spray INTNAS DAILY PRN #15.8 ml 05/13/21 06/29/21 Rx mcg/actuation nasal spray,suspension mirabegron 50 mg tablet,extended 50 mg PO DAILY #30 tab 06/16/21 06/29/21 Rx release 24 hr amoxicillin 875 mg-potassium 1 tab PO BID 10 Days #20 tab 06/23/21 06/29/21 Rx clavulanate 125 mg tablet (Augmentin) Patient History Medical History Ambulatory dysfunction Anxiety Asthma stable COPD (chronic obstructive pulmonary disease) Stable and controlled Depressive disorder Diabetes mellitus NIDDM- stable and controlled per patient Discoloration of skin of lower leg Edema Fibromyalgia Constant pain Foot drop, bilateral Gastroparesis GERD (gastroesophageal reflux disease) controlled History of ear infection hx recurrent ear infections s/p drainage tube in left ear - no recent issues History of urinary incontinence chronic History of urinary urgency chronic Hyperlipidemia Hypertension Lumbar spinal stenosis Severe at L3-4 Mixed conductive and sensorineural hearing loss Morbid obesity On home oxygen therapy 3LPM at HS Pain of lower extremity Restless leg syndrome Right leg weakness Severe muscle deconditioning Sleep apnea CPAP Spinal stenosis Unable to care for self Surgical History H/O: hysterectomy History of cholecystectomy History of esophagogastroduodenoscopy (EGD) History of left knee replacement History of left shoulder replacement History of repair of right rotator cuff History of right knee joint replacement History of surgery on upper extremity LET ARM ABSCESS History of tonsillectomy History of tooth extraction all teeth Hx of colonoscopy Family History Brother Family history of diabetes mellitus Sister Family history of diabetes mellitus Breast cancer Mother Family history of diabetes mellitus Stroke Aunt Family history of diabetes mellitus Father Myocardial infarction Other Coronary heart disease Denies family history of Ovarian cancer Prostate cancer Colorectal cancer Social History Smoking Status: Never smoker Second Hand Exposure: Yes; Hx Alcohol Use: No Hx Substance Use: No Preferred Language: Nam[place]ian Communication Ability: Effective Visual Impairment: No Limitations Hearing Ability: 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 Feels Safe at Home: Yes Childhood Exposure to Second-Hand Smoke: Yes caffeine: Yes (tea every morning) Dental Care, Regularly: No Physical Activity Frequency: Does not Exercise Seatbelt Use: always Sunscreen Use: Yes Assistive Devices: Oxygen - Continuous Review of Systems Review of Systems: All systems reviewed & are unremarkable except as noted in Subjective Physical Exam Physical Exam: Patient seen and examined in room [address] Vieyra's addendum for physical examination findings Results & Data Results & Data ([facility]) Vital Signs (Past 12 Hours) Vital Signs Temp Pulse Pulse Resp BP Pulse Ox 07/03/21 14:59 36.7 C 77 108/67 97 07/03/21 11:58 37.2 C 92 H 23 122/63 87 L 07/03/21 11:08 92 H 25 H 89 L 07/03/21 08:25 84 18 92 07/03/21 08:17 80 24 93 07/03/21 08:00 78 07/03/21 07:43 36.7 C 85 20 93/62 L 96 07/03/21 06:14 85 27 H 95 Laboratory Results 07/03/21 07:52 07/03/21 07:52 06/29/21 07/02/21 13:05 17:36 VBG pH 7.38 7.42 H VBG pCO2 51 H 51 H VBG pO2 22 63 VBG HCO3 29 32 VBG O2 Saturation < 60.0 93.0 VBG Base Excess 3.0 6.0 INR 1.0 (0.9-1.1) 06/29/21 13:05 COVID-19 Results 06/29/21 13:02 SARS-CoV-2 (PCR) POSITIVE A* Diagnostic Findings Chest X-Ray 07/02/21 16:44 SINGLE VIEW CHEST CLINICAL HISTORY: Hypoxia. Covid pneumonia. FINDINGS: An AP, portable, upright chest radiograph is compared to study dated 06/30/2021 and correlated with chest CT dated 06/29/2021. The Examination is severely degraded by wires overlying the patient common portable technique, and prone positioning. The heart is enlarged. Multifocal airspace consolidation throughout both lungs appears worsened as compared to 06/30/2021. No large pleur al effusion or pneumothorax is seen. The bony thorax is grossly intact. A left shoulder arthroplasty is in place. Postoperative change is noted in the right humeral head. IMPRESSION: Multifocal airspace consolidation is consistent with the reported history of viral pneumonia. This appears worsened as compared to 06/30/2021. ACT 112: Negative or not required by law. Electronically signed by: Dario Craven M.D. 07/02/2021 7:47 PM PG Care Time/CCT Total # of Minutes Spent Total Time Spent with Patient: Total time spent is greater than 50% in coordination of care (as documented) at patient's floor/unit and/or counseling patient: 60 minutes Coding Level of Care Code 30335 Inpt Consult Level 5 Diagnoses COVID-19 U07.1 Hypoxia R09.02 Acute respiratory failure with hypoxia and hypercapnia J96.01; J96.02 VIKKI (obstructive sleep apnea) G47.33 Rhabdomyolysis due to COVID-19 U07.1; M62.82 COPD (chronic obstructive pulmonary disease) J44.9 Morbid obesity E66.01 Asthma J45.909 Time Spent (min) 60
--- NOTE | 2021-07-03 20:43 | Hospitalist Progress Note ---
Date of Service July 03, 2021 Assessment & Plan (1) Pneumonia due to COVID-19 virus: Plan: severe, with resulting acute hypoxic/hypercapneic respiratory failure. progressive disease over the last 3-4 days. remains on BIPAP at HS, HFNC during the day. Day #4 of baricitinib. Cont dexamethasone 6mg IV daily; day #5 today. Cont 5-day course of Remdesivir; day #5 today. Cont to prone with nursing/RT assistance. Likely with element of acute diastolic CHF - cont to diurese. No evidence of bacterial superinfection Appreciate pulmonary consultation - prognosis is guarded, and risk of intubation/mech ventilation is high. (2) Acute respiratory failure with hypoxia and hypercapnia: Plan: 2nd to #1 and #3 - supportive care, HFNC during the day, BIPAP at HS (3) Acute diastolic CHF (congestive heart failure): Plan: echo with preserved EF but IVC dilated. diuresed today with lasix 40mg IV -- 2+ L of urine w/ such once again. bmp am. cont daily lasix 40mg IV qam. (4) COPD (chronic obstructive pulmonary disease): Plan: Cont home inhalers and scheduled ventolin 2 puffs q6h scheduled Cont steroids in the form of dexamethasone (5) Foot drop, bilateral: Plan: from lumbar radiculopathy - wears braces noted will be more pertinent later in her stay when PT/OT evals are requested (6) Hyperlipidemia: Plan: Mild rhabdo - hold statin for now (7) HTN (hypertension): Plan: Controlled at this time (8) Chronic radicular lumbar pain: Plan: Continue gabapentin and tylenol holding baclofen and tramadol to avoid drowsiness from these meds (9) Restless leg syndrome: Plan: Cont pramipexole at HS (10) Urinary Incontinence: Plan: goodwin (11) GERD (gastroesophageal reflux disease): Plan: Continue BID pantoprazole (12) DMII (diabetes mellitus, type 2): Plan: uncontrolled and labile with some lows resume lantus 10 units BID cont novolog SSI w/ meals (13) Morbid obesity with BMI of 50.0-59.9, adult: Plan: BMI 50-51 (14) Hydroureteronephrosis: Plan: b/l, as seen on CT nothing to do at this time 2nd to urinary reflux disease?? this is a risk factor for recurrent UTI, CKD, etc after recovering from COVID -- send to urology (15) Enteritis: Plan: 2nd to COVID-19 infection no further diarrhea resolved (16) VIKKI (obstructive sleep apnea): Plan: BIPAP HS and prn (17) DVT prophylaxis: Plan: lovenox 50mg BID (18) Rhabdomyolysis due to COVID-19: Plan: resolved; CPK today wnl resume statin Plan: care d/w son by phone 06/30/21, 07/02/21, and again today he, too, has COVID and is recovering at home left message for daughter on her [employer] 07/01/21 Admission and Anticipated Discharge Date Admission Date: June 29, 2021 Subjective pt proning during my bedside rounds staff also report she proned for several hours last evening during my visit patient was initially sleeping, then awoke and accidentally the HFNC prongs came out of nose; sats dropped to the 70% range instantaneously still very tired is eating albeit a limited amount remains on BIPAP at HS and HFNC during the day dyspnea with minimal activity Review of Systems Review of Systems: gen - fatigue, weak, poor appetite cv - no chest pain or orthopnea pulm - occasional cough GI - no pain, nausea or emesis Physical Exam Physical Exam: gen - proning during the visit, looks tired/sickly/weak mouth - MM dry neck - cannot assess due to proned position heart - RRR, s1 s2, no obvious murmur, heart tones distant lungs - faint bibasilar rales, decreased BS b/l bases, fair airation/air mvoement at best ext - no edema, pulses 2+ b/l Results & Data Results & Data ([facility]) Vital Signs (Past 12 Hours) Vital Signs Temp Pulse Resp BP Pulse Ox 07/03/21 20:29 36.9 C 70 20 111/67 94 07/03/21 18:08 75 21 94 07/03/21 15:24 78 23 91 07/03/21 14:59 36.7 C 77 108/67 97 07/03/21 11:58 37.2 C 92 H 23 122/63 87 L 07/03/21 11:08 92 H 25 H 89 L Laboratory Results Laboratory Results - last 24 hr 07/03/21 07/03/21 07/03/21 07:43 07:52 07:52 WBC 7.36 RBC 4.03 L Hgb 12.8 Hct 39.4 MCV 97.8 MCH 31.8 MCHC 32.5 RDW Std Deviation 49.7 H RDW Coeff of Shant 13.8 Plt Count 195 MPV 9.8 Sodium 140 Potassium 3.7 D Chloride 102 Carbon Dioxide 28 Anion Gap 10.0 BUN 20 H Creatinine 0.74 Est Cr Clr Drug Dosing 93.3 Est GFR ( Amer) 96.5 Est GFR (Non-Af Amer) 83.2 BUN/Creatinine Ratio 26.8 H Glucose 116 H POC Glucose 117 H Calcium 8.9 AST 37 ALT 20 Total Creatine Kinase 75 07/03/21 07/03/21 11:57 16:44 WBC RBC Hgb Hct MCV MCH MCHC RDW Std Deviation RDW Coeff of Shant Plt Count MPV Sodium Potassium Chloride Carbon Dioxide Anion Gap BUN Creatinine Est Cr Clr Drug Dosing Est GFR ( Amer) Est GFR (Non-Af Amer) BUN/Creatinine Ratio Glucose POC Glucose 174 H 205 H Calcium AST ALT Total Creatine Kinase PG Care Time/CCT Total # of Minutes Spent Total Time Spent with Patient: Total time spent is greater than 50% in coordination of care (as documented) at patient's floor/unit and/or counseling patient: Coding Level of Care Code 02120 Subseq Hosp Care Lvl 2 Diagnoses Pneumonia due to COVID-19 virus U07.1; J12.82 Acute respiratory failure with hypoxia and hypercapnia J96.01; J96.02 Acute diastolic CHF (congestive heart failure) I50.31 COPD (chronic obstructive pulmonary disease) J44.9 Foot drop, bilateral M21.371; M21.372 Hyperlipidemia E78.5 HTN (hypertension) I10 Chronic radicular lumbar pain M54.16; G89.29 Restless leg syndrome G25.81 Urinary Incontinence R32 GERD (gastroesophageal reflux disease) K21.9 DMII (diabetes mellitus, type 2) E11.9 Morbid obesity with BMI of 50.0-59.9, adult E66.01; Z68.43 Hydroureteronephrosis N13.30 Enteritis K52.9 VIKKI (obstructive sleep apnea) G47.33 DVT prophylaxis Z29.9 Rhabdomyolysis due to COVID-19 U07.1; M62.82
[2021-07-03] MEDS: PRAMIPEXOLE DIHYDROCHLO 0.5 MG TAB PO SCH (20:49)
[2021-07-03] MEDS: MONTELUKAST SODIUM 10 MG TABLET PO SCH (20:49)
[2021-07-03] MEDS: FLUTICASONE/VILANTEROL 100/25MCG 14 PUFFS/INHALER INH SCH (20:50)
[2021-07-03] MEDS: REMDESIVIR 100 MG in SODIUM CHLORIDE 0.9% 230 ML IV SCH (20:50)
[2021-07-03] MEDS: SODIUM CHLORIDE 0.9% 10ML FLUSH IV SCH (20:51)
[2021-07-04] MEDS ORDERED: INSULIN GLARGINE SOLOSTAR 100 UNITS/ML 3 ML PEN SC SCH (09:00)
[2021-07-04 09:44] LABS: BUN Creatinine Ratio 21.1 (10-20); Creatinine Clr Calc Pharmacy 88.6 ml/min; Est GFR (African American) 90.5 ml/min; Est GFR (Non-African American) 78.1 ml/min; Potassium 3.6 mmol/L (3.5-5.1)
[2021-07-04] MEDS: INSULIN ASPART 100 UNITS/ML 3 ML PEN SC SCH ×4 (09:48→22:22)
[2021-07-04] MEDS: MIRABEGRON ER 25 MG TAB PO SCH (09:57)
[2021-07-04] MEDS: dexAMETHasone 6 MG in SYRINGE 0 ML IV SCH (09:57)
[2021-07-04] MEDS: ROSUVASTATIN CALCIUM 10 MG TAB PO SCH (09:58)
[2021-07-04] MEDS: FUROSEMIDE 40 MG/4 ML VIAL IV SCH (09:58)
[2021-07-04] MEDS: PANTOprazole 40 MG TAB PO SCH (09:58)
[2021-07-04] MEDS: DULoxetine HCL 30 MG CAP PO SCH ×2 (09:59→20:22)
[2021-07-04] MEDS: GABAPENTIN 300 MG CAP PO SCH (09:59)
[2021-07-04] MEDS: POTASSIUM CHLORIDE 10 MEQ TABCR PO SCH ×2 (09:59→19:16)
[2021-07-04] MEDS: ENOXAPARIN INJ 60 MG/0.6 ML SYR SQ SCH (10:01)
[2021-07-04] MEDS: 4 mg Once Daily x14 days PO SCH (10:11)
--- NOTE | 2021-07-04 13:13 | Pulmonology Progress Note ---
Date of Service July 04, 2021 Assessment & Plan (1) COVID-19: (2) Hypoxia: (3) Acute respiratory failure with hypoxia and hypercapnia: (4) VIKKI (obstructive sleep apnea): (5) Rhabdomyolysis due to COVID-19: (6) COPD (chronic obstructive pulmonary disease): (7) Morbid obesity: (8) Asthma: Plan: Impression: This is a 70-year-old female that received 1 dose of Pfizer vaccination 06/04/2021. She developed signs of congestion and fever and presented to PCP June 23, 2021 and was started on Augmentin. Over the next several days she worsened and presented the emergency room 06/29/2021 where she reported that she had been found positive for Covid and was feeling worse. She was started on remdesivir, dexamethasone and supplemental oxygen. The next day she was started on baricitinib. She continues on high flow supplemental oxygen. Recommendations: --Acute hypoxic respiratory failure secondary to Covid/ARDs: * Continues to require high flow oxygen * Dexamethasone 6 mg IV daily day #5 * Remdesivir day #5 * Baricitinib 4 mg daily day #4 * Enoxaparin 50 mg SQ every 12 hours Continue with O2 supplementation to keep oxygen saturation between 90-92%. Awake proning will be helpful Continue with incentive spirometry Continue with flutter valve. Recommend patient to be kept euvolemic to negative balance -- Obstructive sleep apnea: * Patient last seen by Dr. Tony on 06/12/2021 * Currently on CPAP 10 cm of water with 3 L/min of oxygen bleed in * DME supplier is [facility] * Continue with CPAP/BiPAP at night as tolerated --VIKKI/OHS Continue with CPAP Plan: In/out: -2400, urine output 2650 Patient is making good amount of urine She is requiring maximum support when it comes to oxygen but she is not any respiratory distress She is very high risk for intubation We will need close monitoring. Case discussed with RN Please note the above document was generated using voice recognition software. It may contain grammatical, syntax or spelling errors.Any formal questions or concerns about the content, text or information contained within the body of this dictation should be directly addressed to the provider for clarification. Admission and Anticipated Discharge Date Admission Date: June 29, 2021 Subjective Patient seen and examined at bedside. No acute distress. Patient was laying in the left decubitus position She was saturating 92-93% on 6 L, 100% FiO2 Denies any chest pain No headache, no nausea, no vomiting Did have breakfast in the morning Review of Systems Review of Systems: All systems reviewed & are unremarkable except as noted in Subjective Physical Exam Physical Exam: Constitutional: No acute distress HEENT: EOMI, PERRLA Respiratory system: Decreased air entry bilaterally, no wheeze, rhonchi, positive crackles bilaterally CVS: S1-S2 positive, no murmurs or gallops, distant heart sounds Abdomen: Soft, nontender, nondistended, positive bowel sounds x4, obese Extremities: +2 pulses bilaterally radialis/ dorsalis pedis, no cyanosis, no edema Neuro: Awake alert oriented x3 Psych: Normal mood and affect G/U: Positive Pinto Results & Data Results & Data ([facility]) Vital Signs (Past 12 Hours) Vital Signs Temp Pulse Pulse Resp BP BP Pulse Ox 07/04/21 12:16 76 31 H 90 07/04/21 11:45 88 24 89 L 07/04/21 11:33 37.4 C 79 18 127/73 88 L 07/04/21 07:47 72 24 92 07/04/21 06:55 36.5 C 68 26 H 104/71 96 07/04/21 05:02 36.5 C 24 L 24 112/77 93 07/04/21 02:50 65 34 H 89 L 07/03/21 07:52 07/04/21 08:17 PG Care Time/CCT Total # of Minutes Spent Total Time Spent with Patient: Total time spent is greater than 50% in coordination of care (as documented) at patient's floor/unit and/or counseling patient: Coding Level of Care Code 92910 Subseq Hosp Care Lvl 3 Diagnoses COVID-19 U07.1 Hypoxia R09.02 Acute respiratory failure with hypoxia and hypercapnia J96.01; J96.02 VIKKI (obstructive sleep apnea) G47.33 Rhabdomyolysis due to COVID-19 U07.1; M62.82 COPD (chronic obstructive pulmonary disease) J44.9 Morbid obesity E66.01 Asthma J45.909
[2021-07-04] MEDS ORDERED: STAT IV Infusion **Titration per Protocol STA ×6 (13:30→22:24)
--- NOTE | 2021-07-04 13:31 | Hospitalist Progress Note ---
Date of Service July 04, 2021 Assessment & Plan (1) Acute respiratory failure with hypoxia and hypercapnia: Plan: 2nd to #3 and #4. s/p intubation today and mechanical ventilation. appreciate Dr Vieyra's critical care assistance. Defer vent management to him. (2) Rapid atrial fibrillation: Plan: Initially on cardizem infusion which was subsequently stopped prior to intubation & her heart alert. Ultimately synchronized cardioversion was attempted, followed by amiodarone bolus, then amiodarone infusion. Will remain on heparin drip. Replace low mag. Additional K supplementation was given to keep K closer to 4. Check a TSH in the am. Doubt PE as cause of rapid a.fib but cannot fully exclude (however did have neg CTA at time of admission). Either way will be on standard heparin infusion. Ultimately will need beta blockade given #3. (3) Stress-induced cardiomyopathy: Plan: s/p heart alert with emergent cath by Dr Brown. Normal coronaries, global hypokinesis - EF 30%. EF was normal just a few days prior. Takotsubo's. This was the cause of her abnormal EKG and ST segment elevations. Continue diuresis. Will need beta kelvin and repeat echo in am. Appreciate Dr Brown and his assistance. (4) Pneumonia due to COVID-19 virus: Plan: severe, with resulting acute hypoxic/hypercapneic respiratory failure and ARDS. progressive disease since admission with ultimate maxed out settings on HFNC and 100% FIO2 requirements. s/p intubation with mech ventilation. Today was day #5 of baricitinib - to be d/c since now on vent. Cont dexamethasone 6mg IV daily; day #6 today. Completed 5-day course of Remdesivir. Acute systolic/diastolic CHF - cont to diurese. No evidence of bacterial superinfection. Prone per ARDS protocol/per Dr Vieyra if needed. Defer vent management to Dr Vieyra. (5) Hypomagnesemia: Plan: replace per ICU protocol keep mag close to 2 (6) Acute diastolic CHF (congestive heart failure): Plan: echo earlier this week with preserved EF but IVC dilated. had been receiving once daily IV lasix. heart alert today - stress-induced cardiomyopathy with EF 30%. echo in am. cont diuresis. will ultimately need BB if BP can tolerate. (7) COPD (chronic obstructive pulmonary disease): Plan: cont steroids/bronchodilators (8) Foot drop, bilateral: Plan: from lumbar radiculopathy - wears braces chronically at home (9) Hyperlipidemia: Plan: statin no CAD on cath today (10) HTN (hypertension): (11) Chronic radicular lumbar pain: Plan: Continue gabapentin baclofen and tramadol had been on hold previously (12) Restless leg syndrome: Plan: Cont pramipexole (13) Urinary Incontinence: Plan: goodwin (14) GERD (gastroesophageal reflux disease): Plan: Continue BID pantoprazole - convert to IV (15) DMII (diabetes mellitus, type 2): Plan: ICU protocol (16) Morbid obesity with BMI of 50.0-59.9, adult: Plan: BMI 51 (17) Hydroureteronephrosis: Plan: b/l, as seen on CT nothing to do at this time 2nd to urinary reflux disease?? this is a risk factor for recurrent UTI, CKD, etc after recovering from COVID -- send to urology as outpatient (18) Enteritis: Plan: 2nd to COVID-19 infection no further diarrhea resolved epigastric pain today - ischemic? gastritis? other? pepcid IV given this am cont PPI IV BID (19) VIKKI (obstructive sleep apnea): Plan: now vented (20) DVT prophylaxis: Plan: stop lovenox - now on heparin infusion (21) Rhabdomyolysis due to COVID-19: Plan: resolved; most recent CPK wnl statin Plan: care d/w son by phone 06/30/21, 07/02/21, and twice today (pre-cath, and post- cath) son states that his relationship with daughter at the moment is strained there is no formal POA paperwork he and his sister are pt's next of kin informed nursing staff that if any major clinical changes occur, consents are needed, etc to contact the son left message for daughter on her voicemail 07/01/21 total critical care time 60 minutes including complex care coordination of resp failure/a.fib/etc again appreciate DR Vieyra's assistance Admission and Anticipated Discharge Date Admission Date: June 29, 2021 Subjective Events of today -- received message from bedside nurse that patient was on 100% FiO2 via BIPAP, 07/18. She had managed to eat some breakfast this am, but attempts to keep her on HFNC thereafter were not successful. By report she had proned some last evening. Upon arrival patient was on her side and BIPAP was in place. She was very tired/fatigued/lethargic. During my assessment she converted into rapid a.fib. EKG confirmed such. No ischemic appearing EKG changes that time. On exam very poor air movement despite the BIPAP. Cardizem infusion ordered for rapid a.fib, 2 10meq K riders ordered, and mag level ordered. Pt c/o epigastric abd pain - pepcid x 1 IV ordered. I spoke with Dr Vieyra from pulmonary who advised increasing BIPAP to 12/8. He also expressed concerns about needing intubation imminently. Patient was moved to room 203 due to concerns for needing intubation. Dr Vieyra arrived at bedside and preparations were being made for intubation. With cardizem infusing her SBP was now in the 80s. Cardizem infusion stopped. Patient ultimately intubated by Dr Vieyra. Following such the monitor showed worsening rapid a.fib with ST segment elevation and marked hypotension. Pt was cardioverted with 200J for unstable a.fib. Following cardioversion her rates were low 100s but still in a.fib. EKG showed ST segment elevations in I/AVL with marked ST depressions in all other leads. STAT code heart alert called and Dr Brown took Ms Manning to the ear mold laboratory technician. I subsequently spoke with Dr Brown to provide pt's history, then called and spoke with Mr Manning (son) regarding the AM's events. Pt's is , and there is no specific POA. Pt's son and daughter are next of kin. Mr Manning would contact his sister to discuss their mother's care. Cath findings noted -- clean coronaries, global hypokinesis, EF 30%, elevation of intra-cardiac pressures. Suspected Takotsubo's. Following the cath patient returned to ICU under Dr Vieyra's care. Please see Dr Vieyra's communication note from this afternoon detailing other specific actions/events from the afternoon during her heart alert. Review of Systems Review of Systems: prior to intubation- gen - weak, fatigue, lethargic CV - no chest pain pulm - dyspnea present, mild cough GI - epigastric abd pain, but no vomiting musculo - c/o right-sided back pain (chronic) Physical Exam Physical Exam: gen - looks worse today, lethargic mouth - MM dry neck - cannot assess for JVD due to large neck size heart - RRR, s1 s2, no obvious murmur, heart tones distant lungs - faint bibasilar rales, decreased BS b/l bases, poor airation throughout, mild tachypnea noted abd - tender epigastric region, BS+, soft ext - cool, pulses 2+, no edema skin - no rash neuro - no focal deficits, moves all 4 limbs equally Results & Data Results & Data ([facility] [place]) Vital Signs (Past 12 Hours) Vital Signs Temp Pulse Pulse Resp BP BP Pulse Ox 07/04/21 12:16 76 31 H 90 07/04/21 11:45 88 24 89 L 07/04/21 11:33 37.4 C 79 18 127/73 88 L 07/04/21 07:47 72 24 92 07/04/21 06:55 36.5 C 68 26 H 104/71 96 07/04/21 05:02 36.5 C 24 L 24 112/77 93 07/04/21 02:50 65 34 H 89 L Laboratory Results Abnormal lab results 07/04/21 07/04/21 07/04/21 Range/Units 08:17 11:48 15:00 WBC 13.35 H (4.8-10.8) K/uL RDW Std Deviation 48.5 H (36.4-46.3) fL MPV 10.5 H (7.4-10.4) fL Neut # (Auto) 11.40 H (1.4-6.5) K/uL Immature Gran # (Auto) 0.07 H (0.00-0.02) K/uL Sodium (136-145) mmol/L Chloride 97 L (98-107) mmol/L BUN/Creatinine Ratio 21.1 H (10-20) Glucose (70-99) mg/dl POC Glucose 130 H (70-99) mg/dl Magnesium (1.8-2.4) mg/dl AST (15-37) U/L Total Protein (6.4-8.2) gm/dl Albumin (3.4-5.0) gm/dl Globulin (2.5-4.0) gm/dl Albumin/Globulin Ratio (0.9-2) 07/04/21 07/04/21 Range/Units 15:00 15:03 WBC (4.8-10.8) K/uL RDW Std Deviation (36.4-46.3) fL MPV (7.4-10.4) fL Neut # (Auto) (1.4-6.5) K/uL Immature Gran # (Auto) (0.00-0.02) K/uL Sodium 130 L (136-145) mmol/L Chloride 92 L (98-107) mmol/L BUN/Creatinine Ratio (10-20) Glucose 250 H (70-99) mg/dl POC Glucose 257 H (70-99) mg/dl Magnesium 1.6 L (1.8-2.4) mg/dl AST 40 H (15-37) U/L Total Protein 8.8 H (6.4-8.2) gm/dl Albumin 2.5 L (3.4-5.0) gm/dl Globulin 6.3 H (2.5-4.0) gm/dl Albumin/Globulin Ratio 0.4 L (0.9-2) Diagnostic Findings EKG - obtained during my bedside assessment - rapid a.fib, minimal ST depression anterolateral chest leads EKG during heart alert - a.fib, ST segment elevation I and AVL, marked ST depression throughout all other leads (inferior, anteroseptal and anterolateral) PG Care Time/CCT Total # of Minutes Spent Total Time Spent with Patient: Total time spent is greater than 50% in coordination of care (as documented) at patient's floor/unit and/or counseling patient: Critical Care Time: Yes 60 Coding Level of Care Code None Diagnoses Pneumonia due to COVID-19 virus U07.1; J12.82 Acute respiratory failure with hypoxia and hypercapnia J96.01; J96.02 Acute diastolic CHF (congestive heart failure) I50.31 COPD (chronic obstructive pulmonary disease) J44.9 Foot drop, bilateral M21.371; M21.372 Hyperlipidemia E78.5 HTN (hypertension) I10 Chronic radicular lumbar pain M54.16; G89.29 Restless leg syndrome G25.81 Urinary Incontinence R32 GERD (gastroesophageal reflux disease) K21.9 DMII (diabetes mellitus, type 2) E11.9 Morbid obesity with BMI of 50.0-59.9, adult E66.01; Z68.43 Hydroureteronephrosis N13.30 Enteritis K52.9 VIKKI (obstructive sleep apnea) G47.33 DVT prophylaxis Z29.9 Rhabdomyolysis due to COVID-19 U07.1; M62.82 Rapid atrial fibrillation I48.91 Stress-induced cardiomyopathy I51.81 Hypomagnesemia E83.42 Additional Codes Critical Care Time - Critical Care Time: Yes ([id number]) Time Spent (min) 60 Comment critical care time
[2021-07-04] MEDS: dilTIAZem HCL 125 MG in DEXTROSE 5% 100 ML IV SCH (13:56)
[2021-07-04] MEDS ORDERED: FAMOTIDINE 20 MG in SYRINGE 3 ML IV ONE (14:00)
[2021-07-04] MEDS ORDERED: PROPOFOL IV EMULSION 10 MG/ML 100 ML VIAL IV ONE (14:13)
[2021-07-04] MEDS ORDERED: LIDOCAINE 2% 20 MG/ML 5 ML SYR IV ONE (14:13)
[2021-07-04] MEDS ORDERED: NOREPINEPHRINE/D5W 8 MG/508 ML IV ONE (14:14)
[2021-07-04] MEDS ORDERED: ETOMIDATE 2 MG/ML 20 ML VIAL IV ONE ×2 (14:14→16:21)
[2021-07-04] MEDS ORDERED: ROCURONIUM BROMIDE 10 MG/ML 5 ML VIAL IV ONE ×2 (14:14→16:26)
[2021-07-04] MEDS ORDERED: AMIODARONE 150MG / 100ML D5W IV ONE (14:34)
[2021-07-04] MEDS ORDERED: HEPARIN 25000 UNIT/500 ML D5W IV ONE (14:44)
[2021-07-04] MEDS ORDERED: Heparin IV Adult Wt-Based Standard *NO* Bolus Protocol IV SCH (14:45)
[2021-07-04] MEDS ORDERED: ASPIRIN CHEW 324 MG NG STA (14:46)
[2021-07-04] MEDS ORDERED: AMIODARONE 360MG / 200ML D5W IV ONE (14:50)
[2021-07-04] MEDS ORDERED: ASPIRIN 81 MG CHEW ONE (14:54)
[2021-07-04] MEDS ORDERED: CLOPIDOGREL BISULFATE 300 MG TAB ONE (14:54)
[2021-07-04] MEDS ORDERED: HEPARIN (PORCINE) 1000 UNIT/ML 10 ML (CATH LAB USE ONLY) ONE (15:04)
[2021-07-04] MEDS ORDERED: niCARdipine HCL INJ 2.5 MG/ML 10 ML AMP ONE (15:04)
[2021-07-04] MEDS ORDERED: fentaNYL citrate 100 MCG/2 ML VIAL ONE (15:04)
[2021-07-04] MEDS ORDERED: MIDAZOLAM HCL 1 MG/ML 2ML VIAL ONE (15:04)
[2021-07-04] MEDS ORDERED: NITROGLYCERIN/D5W 100MCG/ML 20ML SYR ONE (15:05)
--- NOTE | 2021-07-04 15:11 | XRay Report ---
XR chest 1V portable CLINICAL HISTORY: s/p intubation TECHNIQUE: Single frontal radiograph of the chest was obtained. Comparison: Comparison is made to chest one view 06/22/2021 FINDINGS: Enteric tube side-port and tip lie within the stomach. Endotracheal tube terminates approximately 2.0 cm and the lee ann. Cardiomegaly is noted. Multifocal airspace opacities are seen. No evidence of ple ural effusion or pneumothorax. IMPRESSION: 1. Satisfactory position of endotracheal and enteric tubes. 2. Stable cardiomegaly and multifocal airspace opacities. ACT 112: Negative or not required by law. Electronically signed by: Hussain Freedman M.D. 07/04/2021 3:09 PM
--- NOTE | 2021-07-04 15:14 | XRay Report ---
XR KUB/Abdomen 1 view CLINICAL HISTORY: confirm OG placement TECHNIQUE: 1 view of the abdomen was obtained. Comparison: Comparison is made to abdominal radiograph 06/17/2020 FINDINGS: Enteric tube side-port and tip are within the stomach. Posterior fixation hardware is seen. The bowel gas pattern is nonobstructive. A moderate amount of stool is noted within the large bowel. IMPRESSION: Satisfactory position of enteric tube. ACT 112: Negative or not required by law. Electronically signed by: Hussain Freedman M.D. 07/04/2021 3:12 PM
[2021-07-04] MEDS: HEPARIN SODIUM/DEXTROSE 25,000 UNITS/500 ML BAG IV SCH (15:30)
--- NOTE | 2021-07-04 15:37 | Procedure Note ---
Procedure Note Date of Service July 04, 2021 Note INTUBATION PROCEDURE NOTE: Attending: Dr Alysia Vieyra MD Patient was evaluated and plan to intubate was made for ventilatory failure. Sedative agent used: Etomidate 25 mg, lidocaine 100 mg Paralysis agent used: Rocuronium 60 mg Verbal consent was obtained from patient prior to intubation The patient was prepared in the appropriate fashion. The patient was easily pre-oxygenated by using [id number] ventilation. With help of CMAC grade 2 vocal cords were visualized and 7.5 Polish ETT was introduced on first attempt to 23 cm at the lip. The stylette was removed and balloon was inflated with 10mL of air. Appropriate Colorimetric change was appreciated for at least 10 breaths. Bilateral chest rise and breath sounds were appreciated without air sounds in the epigastrium. Patient tolerated the procedure well and there were no immediate complications. Chest Xray to follow for confirming placement. Coding CPT Codes Resuscitation - Resuscitation: 16705 Endotracheal Intubation, emergency ([id number]) [facility] [place] Procedure Codes (Charges) Resuscitation Resuscitation: 02088 Endotracheal Intubation, emergency
--- NOTE | 2021-07-04 15:40 | Communication Note ---
Date of Service: July 04, 2021 Critical care: Was called by the nurse the patient was on BiPAP 12/8 100% still desaturating into the mid 80s. Patient was very tired and breathing in the high 20s to low 30s In the interim since I saw the patient patient developed A. fib with RVR and she was started on a Cardizem drip At the time of examination her map was 65 while on Cardizem drip and heart rate was in the low 100s. I stopped the Cardizem drip because we were planning to intubate the patient and with sedation the blood pressure will go down Patient had also complained of epigastric discomfort earlier during the day Patient was successfully intubated on first attempt. The low saturation of the patient went was 83% post intubation. Approximately 10 minutes after intubation patient pvc monitor showed some changes on the ST 12-lead EKG was obtained which showed elevation in aVR and lead to with mild elevation in lead I along with ST depressions on the lateral leads Code STEMI was called Patient also developed A. fib with RVR with heart in the 150s, she was also hypotensive with map in the 50s likely because of A. fib RVR Patient was cardioverted synchronized cardioversion 200 J was given x1 which decreased the rate in 100's Patient was given 150 mg of amiodarone as well bolus followed by drip Patient was started on low-dose Levophed for the low blood pressure 300 mg of Plavix and 325 mg of aspirin were given through the NGT Chest x-ray showed good placement of the ET tube. I retracted the ET tube by 1 cm it was approximately 1.5-2 cm above the lee ann Given the instability triple-lumen catheter was not placed and IV team was called to put an IO which was placed in the right humeral head Vent settings 380 tidal volume, respiratory 26, PEEP of 10, 100% Patient's family was updated by Dr. Brandi Paz's help appreciated during the whole encounter. Unfortunately prognosis of the patient is very poor I have personally spent 73 minutes of critical care time in the direct management of this patient. This is a life/limb threatening event. This includes time spent evaluating patient, direct bedside care, chart review, placing orders, interpretation of diagnostic studies, discussion with consultants, patient, and family members, as well as other required patient management activities. This time is exclusive of all separately billable procedures, and teaching time and separate from and in addition to any other critical care service time. Please note the above document was generated using voice recognition software. It may contain grammatical, syntax or spelling errors. Coding Level of Care Code Critical Care 1st 30-74 mins Time Spent (min) 73
[2021-07-04] MEDS ORDERED: PROPOFOL BOLUS FROM BAG IV PRN (16:21)
[2021-07-04] MEDS ORDERED: 0.2 MICRON FILTER SET 1 EA IV ONE (16:21)
[2021-07-04] MEDS ORDERED: AMIODARONE IV BOLUS & DRIP IV STA (16:21)
[2021-07-04] MEDS ORDERED: AMIODARONE / D5W 150 MG/100 ML BAG IV STA (16:21)
[2021-07-04] MEDS ORDERED: LIDOCAINE 2% 20 MG/ML 5 ML SYR IV STA (16:25)
[2021-07-04] MEDS: fentaNYL DRIP 1,250 MCG/250 ML BAG IV SCH (16:30)
--- NOTE | 2021-07-04 16:36 | Cardiology Consultation ---
Date of Consultation July 04, 2021 Assessment & Plan (1) STEMI (ST elevation myocardial infarction): Picture concerning for lateral STEMI in the setting of COVID-19 pneumonia. Recommend proceeding with emergent cardiac catheterization and likely primary PCI. Discussed procedure with family and agreeable with proceeding. Further recommendations pending findings of coronary angiography. History of Present Illness Attending Physician: Andrew Diego History of Present Illness 70-year-old woman here currently admitted with Covid 19 pneumonia seen emerge ntly in the setting of new lateral ST elevations on ECG. Patient intubated/sedated. History obtained from Dr. Diego and EMR. Prior history remarkable for chronic diastolic heart failure, morbid obesity, type 2 diabetes, COPD, obstructive sleep apnea, hypertension, dyslipidemia, spinal stenosis. Admitted 06/30 with progressive hypoxia/respiratory failure requiring high flow O2 and eventually intubation earlier this morning. Echo earlier in hospitalization showed preserved biventricular function, mildly dilated RV, elevated CVP. Today developed new atrial fibrillation with RVR. Started on IV amiodarone. Subsequent ECG showed new lateral ST elevations with deep ST depressions inferiorly, anteriorly and heart alert activated. Blood pressure stable on norepinephrine. Allergies Allergy/AdvReac Type Severity Reaction Status Date / Time cetirizine Allergy Intermediate RASH Verified 06/12/21 10:17 metformin AdvReac Unknown GI upset Verified 06/12/21 10:17 sulfamethoxazole AdvReac severe dry Verified 06/12/21 10:17 [From Bactrim] mouth trimethoprim [From Bactrim] AdvReac severe dry Verified 06/12/21 10:17 mouth Home Medications Medication Instructions Recorded Confirmed Type cholecalciferol (vitamin D3) 25 3,000 units PO QAM cap 01/26/19 06/29/21 History mcg (1,000 unit) capsule biotin 5,000 mcg disintegrating 5,000 mcg PO QAM 04/18/19 06/29/21 History tablet acetaminophen 325 mg tablet 325 mg PO QID PRN 02/28/20 06/29/21 History (Tylenol) pramipexole 0.5 mg tablet (Mirapex) 0.5 mg PO HS #90 tab 08/25/20 06/29/21 Rx montelukast 10 mg tablet 10 mg PO HS #90 tab 10/20/20 06/29/21 Rx (Singulair) furosemide 40 mg tablet (Lasix) 40 mg PO QAM #90 tab 10/24/20 06/29/21 Rx gabapentin 300 mg capsule 300 mg PO BID #60 cap 11/07/20 06/29/21 Rx albuterol sulfate 2.5 mg INH QID PRN #90 ml 01/05/21 06/29/21 Rx albuterol sulfate 90 mcg/actuation 2 puff INH Q6H PRN #18 gm 01/05/21 06/29/21 Rx aerosol inhaler duloxetine 30 mg capsule,delayed 30 mg PO BID #180 cap 04/02/21 06/29/21 Rx release lorazepam 0.5 mg tablet 0.5 mg PO BID PRN #30 tab 04/02/21 06/29/21 Rx tramadol 50 mg tablet 100 mg PO Q6H PRN #90 tab 04/02/21 06/29/21 Rx potassium chloride 10 mEq 10 meq PO BID #60 cap 04/30/21 06/29/21 Rx capsule,extended release baclofen 10 mg tablet 10 mg PO BID #60 tab 05/01/21 06/29/21 Rx fluticasone furoate 100 1 inh INHALATION HS 05/09/21 06/29/21 History mcg-vilanterol 25 mcg/dose inhalation powder (Breo Ellipta) pantoprazole 40 mg tablet,delayed 40 mg PO BID 05/09/21 06/29/21 History release rosuvastatin 10 mg tablet 10 mg PO QAM 05/09/21 06/29/21 History fluticasone propionate 50 2 spray INTNAS DAILY PRN #15.8 ml 05/13/21 06/29/21 Rx mcg/actuation nasal spray,suspension mirabegron 50 mg tablet,extended 50 mg PO DAILY #30 tab 06/16/21 06/29/21 Rx release 24 hr amoxicillin 875 mg-potassium 1 tab PO BID 10 Days #20 tab 06/23/21 06/29/21 Rx clavulanate 125 mg tablet (Augmentin) Patient History Medical History Ambulatory dysfunction Anxiety Asthma stable COPD (chronic obstructive pulmonary disease) Stable and controlled Depressive disorder Diabetes mellitus NIDDM- stable and controlled per patient Discoloration of skin of lower leg Edema Fibromyalgia Constant pain Foot drop, bilateral Gastroparesis GERD (gastroesophageal reflux disease) controlled History of ear infection hx recurrent ear infections s/p drainage tube in left ear - no recent issues History of urinary incontinence chronic History of urinary urgency chronic Hyperlipidemia Hypertension Lumbar spinal stenosis Severe at L3-4 Mixed conductive and sensorineural hearing loss Morbid obesity On home oxygen therapy 3LPM at HS Pain of lower extremity Restless leg syndrome Right leg weakness Severe muscle deconditioning Sleep apnea CPAP Spinal stenosis Unable to care for self Surgical History H/O: hysterectomy History of cholecystectomy History of esophagogastroduodenoscopy (EGD) History of left knee replacement History of left shoulder replacement History of repair of right rotator cuff History of right knee joint replacement History of surgery on upper extremity LET ARM ABSCESS History of tonsillectomy History of tooth extraction all teeth Hx of colonoscopy Family History Brother Family history of diabetes mellitus Sister Family history of diabetes mellitus Breast cancer Mother Family history of diabetes mellitus Stroke Aunt Family history of diabetes mellitus Father Myocardial infarction Other Coronary heart disease Denies family history of Ovarian cancer Prostate cancer Colorectal cancer Social History Smoking Status: Never smoker Second Hand Exposure: Yes; Hx Alcohol Use: No Hx Substance Use: No Preferred Language: Pakistani Communication Ability: Effective Visual Impairment: No Limitations Hearing Ability: Hard of Hearing Tracer Powder Blender Required: No Beliefs That Will Affect Care: None marital status: / Current Living Situation: Alone Current Living Situation Comment: Lives at home alone with son as caregiver. Feels Safe at Home: Yes Childhood Exposure to Second-Hand Smoke: Yes caffeine: Yes (tea every morning) Dental Care, Regularly: No Physical Activity Frequency: Does not Exercise Seatbelt Use: always Sunscreen Use: Yes Assistive Devices: Oxygen - Continuous Review of Systems Review of Systems: Unobtainable due to endotracheal tube Physical Exam Physical Exam: General: Intubated/sedated HEENT: Sclerae anicteric Lungs: Clear anteriorly Cardiac: Irregular Vascular: 2+ right radial Abdomen: Soft Extremities: Well perfused Results & Data ([facility]) Vital Signs (Past 12 Hours) Vital Signs Temp Pulse Pulse Resp BP BP Pulse Ox 07/04/21 12:16 76 31 H 90 07/04/21 11:45 88 24 89 L 07/04/21 11:33 99.3 F 79 18 127/73 88 L 07/04/21 07:47 72 24 92 07/04/21 06:55 97.7 F 68 26 H 104/71 96 07/04/21 05:02 97.7 F 24 L 24 112/77 93 PG Care Time/CCT Total # of Minutes Spent Total Time Spent with Patient: Total time spent is greater than 50% in coordination of care (as documented) at patient's floor/unit and/or counseling patient: Coding Level of Care Code 36900 Initial Inpt Care Lvl 3 Diagnoses STEMI (ST elevation myocardial infarction) I21.3
--- NOTE | 2021-07-04 16:38 | Post Anesthesia Assessment ---
Date of Service July 04, 2021 Post Sedation Assessment Vital Signs Temp Pulse Pulse Resp BP BP Pulse Ox 07/04/21 14:35 142 H 27 H 87 L 07/04/21 12:16 76 31 H 90 07/04/21 11:45 88 24 89 L 07/04/21 11:33 99.3 F 79 18 127/73 88 L 07/04/21 07:47 72 24 92 07/04/21 06:55 97.7 F 68 26 H 104/71 96 07/04/21 05:02 97.7 F 24 L 24 112/77 93 07/04/21 02:50 65 34 H 89 L 07/04/21 00:26 99.1 F 66 22 99/59 L 91 07/04/21 00:00 70 07/03/21 22:50 25 H 93 07/03/21 20:29 98.4 F 70 20 111/67 94 07/03/21 18:08 75 21 94 Recovery Score Activity: Moves 4 extremities Respiration: Deep Breath/Cough Circulation: +/-20% PreAnes Value Consciousness: Nonresponsive Oxygen Saturation: O2 needed for >90% Discharge Sedation Level of Care: Higher Level of Care Post Sedation Plan On clinical assessment, the patient appears to have tolerated the sedation without complications. Patient is recovering as anticipated. Patient will continue to be monitored by nursing and may be discharged when sedation discharge criteria are met per below protocol. Upon Completions of procedure up to 15 minutes continue every 5 minute vital signs and the P.A.R. score; then discharge to a Phase I or Fast Track to Phase II per the following guidelines: * Discharge Patient to appropriate Phase II area if PAR is 8 or greater or r eturn to pre- procedure baseline. The post - procedure orders will be as directed. * If PAR score is less than 8 or not return to pre-procedure baseline then patient will follow Phase I monitoring till PAR is reached for Phase II. The Phase I may be done in procedure room or may call to secure a Phase I area. * If naloxone or flumazenil are used for reversal, hold in Phase I for continued monitoring from when last reversal dose was given for a minimum of 60 minutes or longer pending the nurse and/or physician discretion of patient condition before discharge to Phase II. Please call the Sedation Physician to re-evaluate and complete post-note for discharge to Phase II area. Do NOT discharge from procedure sedation or Phase 1 until post- sedation evaluation note is complete by procedure /sedation MD Sedation Discharge Instructions to be given to the patient at discharge to home.
--- NOTE | 2021-07-04 16:51 | Cardiac Catheterization ---
[facility] Data: Slack Cooper Cardiac Status Clinical evaluation leading to the procedure CAD Presenation: STEMI Anginal Classification: CCS IV Heart Failure: NYHA Class: CCS IV Cardiogenic Shock within 24 Hours: Yes Cardiac Arrest within 24 Hours: No Imaging Studies Past 6 Months: Yes Stress Studies Past 6 Months: No Diagnostic Physicians Name: Bismark Brown MD Status: Elective Closure Device Percutaneous Entry Location: Radial Closure Device: Radial Band Recommendations: Medical Therapy and/or Counseling Intraprocedure Events Significant Disection: No Perforation: No Cardiac Cath Procedure Full Procedure Date July 04, 2021 Pre-Procedure Diagnosis Pre-Procedure Diagnosis: STEMI AUC Score AUC Score: 9 Post-Procedure Diagnosis Post-Procedure Diagnosis: Severe CAD, Normal Coronary Arteries and Elevated Intracardiac Pressures Procedure(s) Performed Procedure(s) Performed: Coronary Angiography, Left Heart Cath and LV Angiography C 40A Crew Chief Bismark Brown MD [employer] 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 Acute lateral ST elevations with inferior/anterior ST depressions Access: 6 Fr right radial artery Catheters: EBU 3.5, JR4 guide, pigtail Findings: LM -normal caliber, angiographically normal LAD -medium caliber, mid segment luminal irregularities tapers prior to apex. Circumflex -large caliber, angiographically normal RCA -dominant, large caliber, angiographically normal LVEDP -19 LVEF 30% with global LV dysfunction Arterial Closure: TR band Summary: 1. Angiographically normal coronary arteries 2. Mildly elevated intracardiac filling pressure 3. LVEF 30% with global LV dysfunction Recommendations: Suspect EKG changes secondary to stress-induced cardiomyopathy. Recommend supportive care from a cardiac standpoint. Repeat echocardiogram in morning Wean norepinephrine as able. Start guideline directed medical therapy when blood pressure allows. With A. fib with RVR would resume heparin infusion after TR band removed. Continue amiodarone. Continue gentle diuresis. Hemodynamics Rest Ao:: 140/98/116 Final Ao: 120/88/105 LV: 127/19 Recommendations Recommendations: Medical Therapy and/or Counseling Specimens Specimens: None Radiation Exposure (mGy) 501 Contrast (mls) 90 Fluids (cc crystalloids) Fluids (cc crystalloids): 100 Drains Drains: None Anesthesia Moderate 9959-7250 Procedural Complication(s) None Disposition ICU I attest to the content of the Intraoperative Record and any orders documented therein. Any exceptions are noted below. [facility] Card Cath Procedure Codes Cardiac Catheterization Procedure 1: Cardiovascular Cath Procedures: 11471 Coronaries and LHC (+/-LV) Moderate Sedation Procedure 1: Sedation/Anesthesia: 33173 Mod Sedation by the same physician;Init15 Min Child Age 5 & Up Procedure 2: Sedation/Anesthesia: 09762 Mod Sedation by the same physician; Ea [id number] Minutes PG Care Time/CCT Total # of Minutes Spent Total Time Spent with Patient: Total time spent is greater than 50% in coordination of care (as documented) at patient's floor/unit and/or counseling patient:
[2021-07-04] MEDS: NOREPINEPHRINE/D5W 8 MG/508 ML BAG IV SCH (17:00)
[2021-07-04] MEDS ORDERED: AMIODARONE / D5W 360 MG/200 ML BAG IV ONE (17:00)
[2021-07-04 17:49] LABS: Basophils # (auto) 0.01 K/uL (0-0.2); Basophils % (auto) 0.1 %; Eosinophils # (auto) 0.02 K/uL (0-0.5); Eosinophils % (auto) 0.1 %; Hematocrit (blood only) 41.1 % (37-47); Hemoglobin 13.4 g/dL (12.0-16.0); Immature Granulocytes # (auto) 0.07 K/uL (0.00-0.02); Immature Granulocytes % (auto) 0.5 %; Lymphocytes # (auto) 1.47 K/uL (1.2-3.4); Mean Corpuscular Hemoglobin 31.5 pg (25-34); Mean Corpuscular Hgb Conc 32.6 g/dL (32-36); Mean Corpuscular Volume 96.5 fL (80-100); Mean Platelet Volume 10.5 fL (7.4-10.4); Monocytes # (auto) 0.38 K/uL (0.11-0.59); Monocytes % (auto) 2.8 %; Neutrophils % (auto) 85.5 %; Platelet Count 338 K/uL (130-400); RDW Coefficient of Variation 13.6 % (11.5-14.5); RDW Standard Deviation 48.5 fL (36.4-46.3); Red Blood Count 4.26 M/uL (4.2-5.4); White Blood Count 13.35 K/uL (4.8-10.8)
[2021-07-04 17:55] LABS: Alanine Aminotransferase 18 U/L (12-78); Albumin Level 2.5 gm/dl (3.4-5.0); Aspartate Aminotransferase 40 U/L (15-37); Blood Urea Nitrogen 18 mg/dl (7-18); Calcium 9.2 mg/dl (8.5-10.1); Carbon Dioxide 29 mmol/L (21-32); Chloride 92 mmol/L (98-107); Creatinine Clr Calc Pharmacy 71.2 ml/min; Est GFR (African American) 69.6 ml/min; Glucose 250 mg/dl (70-99); Magnesium 1.6 mg/dl (1.8-2.4); Potassium 4.4 mmol/L (3.5-5.1); Sodium 130 mmol/L (136-145)
[2021-07-04 18:00] LABS: Albumin Globulin Ratio 0.4 (0.9-2); Alkaline Phosphatase 51 U/L (45-117); Bilirubin,Total 0.7 mg/dl (0.2-1); Globulin 6.3 gm/dl (2.5-4.0); Phosphorus 2.7 mg/dl (2.5-4.9); Total Protein 8.8 gm/dl (6.4-8.2); Troponin I < 0.015 ng/ml (0-0.045)
--- NOTE | 2021-07-04 18:22 | Procedure Note ---
Procedure Note Date of Service July 04, 2021 Note Procedure: Inserting ultrasound-guided central distribution lineman: Dr. Alysia Vieyra Indication: ARDS Consent: Emergent consent was applied Anesthesia: 1% lidocaine without epinephrine local. Procedure: Consent was verified and timeout performed. Appropriate imaging studies were reviewed prior to the procedure. Under aseptic and sterile condition, right IJ vein was accessed under direct ultrasound guidance. Guidewire was confirmed to be within the lumen of vein with the help of ultrasound. Catheter was introduced via Seldinger technique. Guide a wire was removed. Good non-pulsatile blood flow was appreciated from all the ports. The catheter was placed at 16 cm and sutured in place. BioPatch was applied to the catheter and a sterile Tegaderm dressing was applied over the catheter with careful attention to sterility. Lung sliding was appreciated post procedure with the help ultrasound. Chest x-ray to follow Patient tolerated the procedure well. Blood loss: Less than 2 cc Complications: None Coding CPT Codes Tubes, Drains, and Vasc Access - Tubes, Drains, and Vasc Access: [id number] Place catheter in vein superior or inferior vena cava ([id number]) Tubes, Drains, and Vasc Access - Tubes, Drains, and Vasc Access: [id number] Ultrasound Guidance For Vascular ([id number]) [facility] [place] Procedure Codes (Charges) Tubes, Drains, and Vasc Access Procedure 1: Tubes, Drains, and Vasc Access: [id number] Place catheter in vein superior or inferior vena cava Procedure 2: Tubes, Drains, and Vasc Access: [id number] Ultrasound Guidance For Vascular
--- NOTE | 2021-07-04 18:24 | Procedure Note ---
Procedure Note Date of Service July 04, 2021 Note ARTERIAL LINE PROCEDURE NOTE: Procedure: Arterial Line Placement Attending: Dr. Alysia Vieyra MD Indication: Monitoring on Pressors Anesthesia: General anesthesia Emergency consent was applied A time-out was completed verifying correct patient, procedure, site, positioning, and implant(s) or special equipment if applicable. Allens test was performed to ensure adequate perfusion. Patients left wrist was prepped and draped in the usual sterile fashion. Ultrasound guidance was used to aid needle placement. A 20g Arrow arterial line was introduced into the left radial artery. Catheter was threaded, and the needle was removed with appropriate pulsatile blood return. Good waveform was observed on the monitor. The patient tolerated the procedure well. Confirmation of placement with ultrasound. Images saved to medical record. Complications: None Blood Loss: < 2cc Coding CPT Codes Tubes, Drains, and Vasc Access - Tubes, Drains, and Vasc Access: [id number] Insertion Catheter, Artery ([id number]) Tubes, Drains, and Vasc Access - Tubes, Drains, and Vasc Access: [id number] Ultrasound Guidance For Vascular ([id number]) [facility] [place] Codes (Charges) Tubes, Drains, and Vasc Access Procedure 1: Tubes, Drains, and Vasc Access: [id number] Insertion Catheter, Artery Procedure 2: Tubes, Drains, and Vasc Access: [id number] Ultrasound Guidance For Vascular
--- NOTE | 2021-07-04 18:33 | XRay Report ---
XR chest 1V portable CLINICAL HISTORY: central line placement TECHNIQUE: Single frontal radiograph of the chest was obtained. Comparison: Comparison is made to chest one view 07/04/2021 at 1433 hours FINDINGS: Interval placement of a right internal jugular catheter which terminates in the upper SVC. Remaining lines and tubes are stable. The cardiomediastinal silhouette is obscured. Multifocal airspace opaciti es are seen. No evidence of pleural effusion or pneumothorax. IMPRESSION: Satisfactory position of the right internal jugular catheter. Multifocal airspace opacities are uncha nged. ACT 112: Negative or not required by law. Electronically signed by: Hussain Freedman M.D. 07/04/2021 6:32 PM
[2021-07-04] MEDS: POTASSIUM CHLORIDE / WTR 10 MEQ/100 ML PLCT IV SCH ×2 (18:44→18:45)
[2021-07-04] MEDS: PHENYLEPHRINE HCL 20 MG in DEXTROSE 5% 500 ML IV SCH ×2 (18:58→21:31)
[2021-07-04] MEDS: AMIODARONE / D5W 360 MG/200 ML BAG IV SCH (20:32)
[2021-07-04] MEDS: propofoL 1,000 MG/100 ML VIAL IV SCH ×2 (21:13→23:30)
[2021-07-04] MEDS: GABAPENTIN 250 MG/5 ML 470 ML BTL PO SCH (21:35)
[2021-07-04] MEDS: PANTOprazole 40 MG in SYRINGE 0 ML IV SCH (21:36)
[2021-07-04] MEDS: MONTELUKAST SODIUM 10 MG TABLET PO SCH (21:37)
[2021-07-04] MEDS: PRAMIPEXOLE DIHYDROCHLO 0.5 MG TAB PO SCH (21:39)
[2021-07-04] MEDS ORDERED: PHARMACY GLYCEMIC MGMT CONSULT PRN (22:02)
[2021-07-04] MEDS: FLUTICASONE/VILANTEROL 100/25MCG 14 PUFFS/INHALER INH SCH (22:22)
[2021-07-04] MEDS ORDERED: SEVERE STRESS LEVEL ONE (22:24)
[2021-07-04] MEDS ORDERED: INSULIN PROTOCOL GOAL RANGE ONE (22:24)
[2021-07-04] MEDS ORDERED: INSULIN HUMAN REGULAR IV BOLUS 5 UNITS in SYRINGE 0 ML IV ONE (22:30)
[2021-07-04] MEDS: INSULIN REGULAR 250 UNITS in SODIUM CHLORIDE 0.9% 247.5 ML IV SCH (23:41)
[2021-07-05] MEDS ORDERED: PHENYLEPHRINE HCL 40 MG in DEXTROSE 5% 500 ML IV SCH
[2021-07-05] MEDS: PHENYLEPHRINE HCL 80 MG in DEXTROSE 5% 500 ML IV SCH ×2 (00:56→22:26)
[2021-07-05] MEDS: PHENYLEPHRINE HCL 20 MG in DEXTROSE 5% 500 ML IV SCH (01:00)
[2021-07-05] MEDS: fentaNYL DRIP 1,250 MCG/250 ML BAG IV SCH ×2 (02:15→13:34)
[2021-07-05 04:34] LABS: BUN Creatinine Ratio 22.9 (10-20); Calcium 8.7 mg/dl (8.5-10.1); Creatinine Clr Calc Pharmacy 65.2 ml/min; Est GFR (African American) 62.5 ml/min; Est GFR (Non-African American) 53.9 ml/min; Magnesium 1.9 mg/dl (1.8-2.4); Phosphorus 4.1 mg/dl (2.5-4.9); Potassium 3.5 mmol/L (3.5-5.1)
[2021-07-05 04:42] LABS: Partial Thromboplastin Ratio 2.2
[2021-07-05 04:45] LABS: Partial Thromboplastin Time 57.6 Seconds (21.0-31.0)
[2021-07-05 05:28] LABS: iSTAT Arterial Blood Gas HCO3 27 meg/L (19-24); iSTAT Arterial Blood Gas pCO2 38 mmHg (35-46); iSTAT Arterial Blood Gas pH 7.46 (7.35-7.45); iSTAT Arterial Blood Gas pO2 63 mmHg (80-95); iSTAT Carbon Dioxide 28 mmol/L (24-31); iSTAT FiO2 60 %; iSTAT Site Art Line
[2021-07-05] MEDS: propofoL 1,000 MG/100 ML VIAL IV SCH ×3 (06:45→20:57)
--- NOTE | 2021-07-05 08:52 | XRay Report ---
XR chest 1V portable HISTORY: 70 years-old Female Resp failure acute respiratory failure COMPARISON: Chest radiograph 07/04/2021 TECHNIQUE: Portable AP view of the chest FINDINGS: Cardiac silhouette is enlarged. Endotracheal tube overlies the midline, 3.2 cm superior to the lee ann . Right IJ central venous catheter distal tip terminates within the inferior SVC. Enteric tube course s below the diaphragm outside the [id number]. No pneumothorax or large pleural effusion. Extensive bilateral airspace opacities redemonstrated. Mildly improved aeration of the lungs. Degenerative dima nges of the right shoulder and spine. Reverse left shoulder total joint arthroplasty. IMPRESSION: 1. Lines and tubes as above. No pneumothorax. 2. Mildly improved aeration of the lungs with extensive airspace opacities redemonstrated suggestive of viral pneumonia. 3. Cardiomegaly. ACT 112: Negative or not required by law. The above report was generated using voice recognition software. It may contain grammatical, syntax o r spelling errors. Electronically signed by: Emerson Garner M.D. 07/05/2021 8:51 AM
[2021-07-05 09:16] LABS: Basophils # (auto) 0.01 K/uL (0-0.2); Basophils % (auto) 0.1 %; Eosinophils # (auto) 0.01 K/uL (0-0.5); Eosinophils % (auto) 0.1 %; Hematocrit (blood only) 37.2 % (37-47); Immature Granulocytes # (auto) 0.21 K/uL (0.00-0.02); Lymphocytes # (auto) 1.14 K/uL (1.2-3.4); Lymphocytes % (auto) 10.8 %; Mean Corpuscular Hemoglobin 32.5 pg (25-34); Mean Corpuscular Hgb Conc 34.9 g/dL (32-36); Monocytes # (auto) 0.64 K/uL (0.11-0.59); Neutrophils # (auto) 8.59 K/uL (1.4-6.5); Platelet Count 369 K/uL (130-400); RDW Coefficient of Variation 13.6 % (11.5-14.5); RDW Standard Deviation 46.6 fL (36.4-46.3)
[2021-07-05] MEDS: MAGNESIUM SULFATE / D5W 1 GM/100 ML BAG IV SCH ×2 (09:30→11:59)
[2021-07-05] MEDS: POTASSIUM CHLORIDE 20 MEQ/15 ML UDC NG SCH ×2 (09:31→14:43)
[2021-07-05] MEDS: FUROSEMIDE 40 MG/4 ML VIAL IV SCH (09:32)
[2021-07-05] MEDS: GABAPENTIN 250 MG/5 ML 470 ML BTL PO SCH ×2 (09:33→22:28)
[2021-07-05] MEDS: dexAMETHasone 6 MG in SYRINGE 0 ML IV SCH (09:33)
[2021-07-05] MEDS: PANTOprazole 40 MG in SYRINGE 0 ML IV SCH ×2 (09:33→21:02)
[2021-07-05] MEDS: ROSUVASTATIN CALCIUM 10 MG TAB PO SCH (09:34)
[2021-07-05] MEDS ORDERED: INSULIN HUMAN NPH SC SCH (09:45)
[2021-07-05 09:52] LABS: Thyroid Stimulating Hormone 0.265 uIu/ml (0.300-4.500)
--- NOTE | 2021-07-05 09:59 | Electrocardiogram Report ---
Test Reason : Blood Pressure : / mmHG Vent. Rate : 107 BPM Atrial Rate : 208 BPM P-R Int : 000 ms QRS Dur : 084 ms QT Int : 342 ms P-R-T Axes : 000 076 027 degrees QTc Int : 456 ms Poor data quality, interpretation may be adversely affected Atrial fibrillation with rapid ventricular response Low voltage QRS Nonspecific ST abnormality Abnormal ECG When compared with ECG of 30-JUN-2021 02:05, Atrial fibrillation has replaced Sinus rhythm Vent. rate has increased BY 37 BPM Confirmed by Tomi Jain ([id number]) on 07/05/2021 9:58:48 AM Referred By: REFERRED SELF Confirmed By:Tomi Jain
--- NOTE | 2021-07-05 10:00 | Electrocardiogram Report ---
Test Reason : Blood Pressure : / mmHG Vent. Rate : 116 BPM Atrial Rate : 100 BPM P-R Int : 000 ms QRS Dur : 086 ms QT Int : 318 ms P-R-T Axes : 000 078 129 degrees QTc Int : 442 ms Atrial fibrillation with rapid ventricular response Low voltage QRS Nonspecific ST and T wave abnormality Abnormal ECG When compared with ECG of several seconds ago No significant change Confirmed by Tomi Jain ([id number]) on 07/05/2021 10:00:10 AM Referred By: REFERRED SELF Confirmed By:Tomi Jain
[2021-07-05 10:05] LABS: T4 Free Thyroxine 1.63 ng/dl (0.8-1.6)
[2021-07-05] MEDS: ICU ELECTROLYTE REPLACEMENT PROTOCOL SCH ×2 (11:57→18:55)
[2021-07-05] MEDS: INSULIN ASPART 100 UNITS/ML 3 ML PEN SC SCH ×4 (11:57→20:59)
[2021-07-05] MEDS: DULoxetine HCL 30 MG CAP PO SCH ×2 (11:58→20:58)
[2021-07-05] MEDS: POTASSIUM CHLORIDE 10 MEQ TABCR PO SCH (11:59)
[2021-07-05] MEDS: MIRABEGRON ER 25 MG TAB PO SCH (11:59)
[2021-07-05] MEDS ORDERED: POTASSIUM CHLORIDE 20 MEQ/15 ML UDC PO SCH (12:00)
[2021-07-05] MEDS: HEPARIN SODIUM/DEXTROSE 25,000 UNITS/500 ML BAG IV SCH (13:34)
[2021-07-05] MEDS: AMIODARONE / D5W 360 MG/200 ML BAG IV SCH (14:23)
[2021-07-05] MEDS: NOREPINEPHRINE/D5W 8 MG/508 ML BAG IV SCH (14:23)
[2021-07-05] MEDS: POTASSIUM CHLORIDE 20 MEQ/15 ML UDC GT SCH ×2 (14:43→17:00)
--- NOTE | 2021-07-05 14:45 | Pharmacy Report ---
Pharmacy Glycemic Short Note 2 - Date of Service July 05, 2021 - Glycemic Short BSG Results (Last 24 hours): 07/04/21 07/04/21 07/04/21 15:00 15:03 20:33 Glucose 250 H POC Glucose 257 H POC Glucose (other) 441 H* 07/05/21 07/05/21 07/05/21 00:53 01:46 02:58 Glucose POC Glucose POC Glucose (other) 331 H 276 H 229 H 07/05/21 07/05/21 07/05/21 03:48 03:52 05:13 Glucose 184 H POC Glucose POC Glucose (other) 194 H 150 H 07/05/21 07/05/21 07/05/21 06:16 07:16 08:57 Glucose POC Glucose POC Glucose (other) 129 H 117 H 106 H 07/05/21 07/05/21 07/05/21 10:23 11:10 12:14 Glucose POC Glucose POC Glucose (other) 107 H 119 H 134 H 07/05/21 07/05/21 13:10 14:14 Glucose POC Glucose POC Glucose (other) 145 H 147 H OUTPATIENT ANTIDIABETIC REGIMEN: * None * A1c 6.4% 09/25/20, updated A1c not ordered, as patient has been on high dose IV steroids x 6 days ASSESSMENT: * 70 year old female, intubated/sedated, s/p emergent cardiac cath yesterday, COVID19 pneumonia, hyperglycemic d/t IV Steroids * Patient started on insulin drip last night for BSG 441mg/dl, running 4.8-7 units/hr over past 14 hours, currently at 5.6units/hr * Started NPH this morning when pharmacy consulted to cover steroid induced hyperglycemia PLAN FOR INPATIENT GLYCEMIC CONTROL: * Basal insulin * NPH 45 units SQ daily with IV Dexamethasone * IV insulin infusion per protocol
[2021-07-05] MEDS: dilTIAZem HCL 125 MG in DEXTROSE 5% 100 ML IV SCH (14:55)
--- NOTE | 2021-07-05 15:05 | XCELERA ---
[id number]
[2021-07-05] MEDS: INSULIN GLARGINE SOLOSTAR 100 UNITS/ML 3 ML PEN SC SCH (16:10)
[2021-07-05] MEDS ORDERED: FUROSEMIDE 40 MG/4 ML VIAL IV ONE (16:34)
--- NOTE | 2021-07-05 18:48 | Critical Care Progress Note ---
Date of Service July 05, 2021 Assessment & Plan (1) Stress-induced cardiomyopathy: (2) Rapid atrial fibrillation: (3) VIKKI (obstructive sleep apnea): (4) COVID-19: (5) Acute respiratory failure with hypoxia and hypercapnia: (6) Pneumonia due to COVID-19 virus: (7) Morbid obesity with BMI of 50.0-59.9, adult: Plan: Impression: This is a 70-year-old female that received 1 dose of Pfizer vaccination 06/04/2021. She developed signs of congestion and fever and presented to PCP June 23, 2021 and was started on Augmentin. Over the next several days she worsened and presented the emergency room 06/29/2021 where she reported that she had been found positive for Covid and was feeling worse. She was started on remdesivir, dexamethasone and supplemental oxygen. The next day she was started on baricitinib. She continues on high flow supplemental oxygen. 24-hour events: Patient was intubated yesterday following which patient had ST elevation and was taken to Casting [facility]. Clean coronaries with possible stress- induced cardiomyopathy. EF was 30% at that time -- VDRF Likely secondary to acute hypoxic respiratory failure secondary to multilobar COVID-19 pneumonia Continue with ventilatory support Keep RASS -1 Daily sedation holidays and SBT's Continue with lung protective ventilation High PEEP, low tidal volume to keep Plateau < 30 with permissive hypercapnea if need be. Monitor ABGs --Shock Combination of sepsis as well as cardiogenic Continue with phenylephrine We will consider dobutamine if need be in future --A. fib with RVR S/p amiodarone bolus Currently on amiodarone drip --Stress-induced cardiomyopathy Cardiac cath 07/04/2021 negative for any significant CAD Avoid Levophed. --Diabetes type 2 ICU hypoglycemia protocol --Prophylaxis VTE: Heparin drip GI: Pantoprazole Lines: Right IJ, left radial, positive Pinto Diet: Tube feeds Plan: In/out: +171, urine output 1775 AB.46/38/63 on 10 of PEEP, 60% --> respiratory rate decreased to 20 We will try to keep the patient negative balance Magnesium and potassium being replaced Patient's hyponatremia is most likely hypervolemic. We will change Lasix to 40 mg twice daily DC heparin drip and change to subcu heparin I have personally spent 35 minutes of critical care time in the direct management of this patient. This is a life/limb threatening event. This includes time spent evaluating patient, direct bedside care, chart review, placing orders, interpretation of diagnostic studies, discussion with consultants, patient, and family members, as well as other required patient management activities. This time is exclusive of all separately billable procedures, and teaching time and separate from and in addition to any other critical care service time. Please note the above document was generated using voice recognition software. It may contain grammatical, syntax or spelling errors. Admission and Anticipated Discharge Date Admission Date: June 29, 2021 Subjective Patient seen and examined at bedside. No acute distress, no deficits overnight PEEP 10, FiO2 60% saturating 90-91% He was only on fentanyl. On amiodarone drip 0.5. She was bradycardic in the high 40s to low 50s. Review of Systems Review of Systems: Unobtainable due to endotracheal tube Physical Exam Physical Exam: Constitutional: No acute distress HEENT: EOMI, positive ETT Respiratory system:Decreased air entry bilaterally, no wheeze, rhonchi, positive crackles bilaterally CVS: S1-S2 positive, no murmurs or gallops, distant heart sounds Abdomen: Soft, nontender, nondistended, positive bowel sounds x4,obese Extremities: +2 pulses bilaterally radialis/ dorsalis pedis,no cyanosis, no edema Neuro:RASS -1, does open her eyes to voice, follows simple commands Psych:Unable to assess G/U:Positive Pinto Skin: no rashes, warm and dry Lymphatic: no cervical or axillary lymphadenopathy Results & Data Results & Data ([facility]) Vital Signs (Past 12 Hours) Vital Signs Temp Pulse Resp BP Pulse Ox 07/05/21 07:45 49 L 23 92 07/05/21 06:30 51 L 24 93 07/05/21 06:00 51 L 22 93 07/05/21 05:30 52 L 22 92 07/05/21 05:00 52 L 22 93 07/05/21 04:30 53 L 22 93 07/05/21 04:00 54 L 22 93 07/05/21 03:57 22 07/05/21 03:30 54 L 26 H 93 07/05/21 03:00 55 L 26 H 94 07/05/21 02:30 54 L 26 H 94 07/05/21 02:00 55 L 27 H 95 07/05/21 01:30 56 L 26 H 87 L 07/05/21 01:00 60 26 H 91 07/05/21 00:30 59 L 26 H 91 07/05/21 00:00 37.3 C 61 26 H 153/90 H 90 07/04/21 23:50 59 L 27 H 91 07/04/21 23:30 59 L 26 H 91 07/04/21 23:00 37.4 C 61 26 H 140/91 93 07/05/21 08:24 Coding Level of Care Code Critical Care 1st 30-74 mins Diagnoses Stress-induced cardiomyopathy I51.81 Rapid atrial fibrillation I48.91 VIKKI (obstructive sleep apnea) G47.33 COVID-19 U07.1 Acute respiratory failure with hypoxia and hypercapnia J96.01; J96.02 Pneumonia due to COVID-19 virus U07.1; J12.82 Morbid obesity with BMI of 50.0-59.9, adult E66.01; Z68.43 Time Spent (min) 35
[2021-07-05 18:51] LABS: Calcium 8.2 mg/dl (8.5-10.1); Creatinine Clr Calc Pharmacy 65.2 ml/min; Est GFR (African American) 62.5 ml/min; Est GFR (Non-African American) 53.9 ml/min; Magnesium 2.2 mg/dl (1.8-2.4); Potassium 4.7 mmol/L (3.5-5.1)
[2021-07-05 19:54] LABS: Mixed Venous Blood Gas Base Excess 4.5 mEq/L (-7.7-1.9); Mixed Venous Blood Gas HCO3 32 mmol/L (19-24); Mixed Venous Blood Gas O2 Sat < 60.0 % (68); Mixed Venous Blood Gas PCO2 58 mmHg (38-50); Mixed Venous Blood Gas PO2 33 mmHg (80-95); Mixed Venous Blood Gas pH 7.36 (7.35-7.45)
[2021-07-05] MEDS: MONTELUKAST SODIUM 10 MG TABLET PO SCH (21:02)
[2021-07-05] MEDS: PRAMIPEXOLE DIHYDROCHLO 0.5 MG TAB PO SCH (21:03)
--- NOTE | 2021-07-05 21:44 | Hospitalist Progress Note ---
Date of Service July 05, 2021 Assessment & Plan (1) Acute respiratory failure with hypoxia and hypercapnia: Plan: 2nd to severe COVID-19 pneumonia and acute CHF/stress-induced cardiomyopathy. s/p intubation 07/04/21. appreciate Dr Vieyar's critical care assistance. (2) Pneumonia due to COVID-19 virus: Plan: severe, with resulting acute hypoxic/hypercapneic respiratory failure and ARDS. progressive disease since admission with ultimate maxed out settings on HFNC and 100% FIO2 requirements on 07/04. s/p intubation with mech ventilation 07/04. Had received 5 days of baricitinib - now d/c due to vent status. Cont dexamethasone 6mg IV daily; day #7 today. Completed 5-day course of Remdesivir. Acute systolic/diastolic CHF - cont to diurese. No evidence of bacterial superinfection. Defer vent management to Dr Vieyra. (3) Stress-induced cardiomyopathy: Plan: s/p heart alert with emergent cath by Dr Brown on 07/04 due to suspected STEMI. Developed ST segment elevations shortly after intubation. Cath - normal coronaries, global hypokinesis - EF 30%. EF was normal just a few days prior. Takotsubo's. This was the cause of her abnormal EKG and ST segment elevations pre-cath. Continue diuresis. Will ultimately need beta kelvin. Repeat echo this admission. Appreciate Dr Brown and his assistance. (4) Rapid atrial fibrillation: Plan: 07/04 AM -- initially on cardizem infusion which was subsequently stopped prior to intubation & her heart alert. Ultimately underwent synchronized cardioversion which was not successful. She was loaded with amiodarone bolus, then amiodarone infusion. Converted back to NSR late 07/04. Amiodarone drip now off. Will remain on heparin drip. Doubt PE as cause of rapid a.fib but cannot fully exclude (however did have neg CTA at time of admission). Either way will be on standard heparin infusion. Ultimately will need beta blockade given #3. TSH noted to be slightly depressed and FT4 slightly high - simply repeat these in a few weeks. This is not c/w significant hyperthyroidism leading to a.fib. (5) Acute systolic CHF (congestive heart failure): Plan: echo earlier this week with preserved EF but IVC dilated. had been receiving once daily IV lasix. heart alert 07/04 - stress-induced cardiomyopathy with EF 30% based on cath showing normal coronaries. cont diuresis. will ultimately need BB if BP can tolerate. (6) Hypomagnesemia: Plan: replaced/resolved (7) COPD (chronic obstructive pulmonary disease): Plan: cont steroids/bronchodilators (8) Foot drop, bilateral: Plan: from lumbar radiculopathy - wears braces chronically at home (9) Hyperlipidemia: Plan: statin no CAD on cath (10) HTN (hypertension): Plan: now on pressors for BP support (11) Chronic radicular lumbar pain: Plan: Continue gabapentin baclofen and tramadol on hold (12) Restless leg syndrome: Plan: Cont pramipexole (13) Urinary Incontinence: Plan: goodwin (14) GERD (gastroesophageal reflux disease): Plan: Continue IV PPI twice daily (15) DMII (diabetes mellitus, type 2): Plan: ICU protocol (16) Morbid obesity with BMI of 50.0-59.9, adult: Plan: BMI 51 (17) Hydroureteronephrosis: Plan: b/l, as seen on CT nothing to do at this time 2nd to urinary reflux disease?? this is a risk factor for recurrent UTI, CKD, etc after recovering from COVID -- send to urology as outpatient (18) Enteritis: Plan: as seen on admission CT 2nd to COVID-19 infection no further diarrhea resolved (19) VIKKI (obstructive sleep apnea): Plan: now vented (20) DVT prophylaxis: Plan: heparin infusion (21) Rhabdomyolysis due to COVID-19: Plan: resolved; most recent CPK wnl Plan: care d/w son by phone 06/30/21, 07/02/21, 07/04/21 and 07/05/21 son states that his relationship with his sister at the moment is strained there is no formal POA paperwork he and his sister are pt's next of kin informed nursing staff that if any major clinical changes occur, consents are needed, etc to contact the son left message for daughter on her voicemail 07/01/21 Admission and Anticipated Discharge Date Admission Date: June 29, 2021 Subjective pt intubated/sedated. however, able to follow commands, shakes head yes/no to questions. shook head no when asked about pain. remains on phenylephrine, insulin, fentanyl, heparin drips. was on amiodarone drip - patient converted to NSR overnight. remains on PEEP 10, FiO2 60%, TV 350. Review of Systems Review of Systems: Unobtainable due to endotracheal tube Physical Exam Physical Exam: gen - intubated/sedated mouth - ETT in place, enteric tube in place neck - cannot assess for JVD due to large neck size; right neck CVC clean/intact heart - RR, s1 s2, sinus katlin, no obvious murmur lungs - faint bibasilar rales, decreased BS b/l bases, occasional wheezing abd - soft, NT, ND, BS+ ext - cool, mottling of feet, cap refill 3-4 seconds, pulses <1+ b/l Results & Data Results & Data ([facility]) Vital Signs (Past 12 Hours) Vital Signs Temp Pulse Resp BP Pulse Ox 07/05/21 21:00 36.7 C 46 L 20 139/96 92 07/05/21 20:30 36.7 C 65 22 90 07/05/21 20:00 36.6 C 50 L 21 91 07/05/21 19:30 36.6 C 47 L 20 93 07/05/21 19:25 49 L 21 93 07/05/21 19:00 36.6 C 58 L 20 108/82 90 07/05/21 18:30 36.7 C 48 L 20 88 L 07/05/21 18:00 36.8 C 55 L 20 88 L 07/05/21 17:30 36.7 C 49 L 20 90 07/05/21 17:00 36.6 C 46 L 20 89 L 07/05/21 16:30 36.5 C 47 L 20 91 07/05/21 16:00 36.5 C 46 L 20 89 L 07/05/21 15:30 36.6 C 49 L 20 86 L 07/05/21 15:00 37.0 C 51 L 20 85 L 07/05/21 14:32 55 L 20 54 L 07/05/21 14:30 37.2 C 47 L 20 89 L 07/05/21 14:00 37.3 C 49 L 20 90 07/05/21 13:30 37.3 C 43 L 20 94 07/05/21 13:00 37.4 C 48 L 20 91 07/05/21 12:00 37.4 C 47 L 20 92 07/05/21 11:00 37.2 C 49 L 20 91 07/05/21 10:00 37.2 C 48 L 22 90 Laboratory Results Laboratory Results - last 24 hr 07/04/21 07/05/21 07/05/21 20:33 00:53 01:46 WBC RBC Hgb Hct MCV MCH MCHC RDW Std Deviation RDW Coeff of Shant Plt Count MPV Immature Gran % (Auto) Neut % (Auto) Lymph % (Auto) [place] % (Auto) Eos % (Auto) Baso % (Auto) Neut # (Auto) Lymph # (Auto) [place] # (Auto) Eos # (Auto) Baso # (Auto) Immature Gran # (Auto) APTT PTT Ratio Sample Site POC pH POC pCO2 POC pO2 POC HCO3 POC Total CO2 POC Base Excess POC ABG O2 Sat Claude Test Mixed VBG pH Mixed VBG pCO2 Mixed VBG pO2 Mixed VBG HCO3 Mixed VBG Base Excess Mixed VBG O2 Saturation Barometric Pressure O2 Delivery Device POC O2 Rate POC FiO2 Tidal Volume PEEP Sodium Potassium Chloride Carbon Dioxide Anion Gap BUN Creatinine Est Cr Clr Drug Dosing Est GFR ( Amer) Est GFR (Non-Af Amer) BUN/Creatinine Ratio Glucose POC Glucose (other) 441 H* 331 H 276 H Calcium Phosphorus Magnesium TSH Free T4 07/05/21 07/05/21 07/05/21 02:58 03:48 03:52 WBC RBC Hgb Hct MCV MCH MCHC RDW Std Deviation RDW Coeff of Shant Plt Count MPV Immature Gran % (Auto) Neut % (Auto) Lymph % (Auto) [place] % (Auto) Eos % (Auto) Baso % (Auto) Neut # (Auto) Lymph # (Auto) [place] # (Auto) Eos # (Auto) Baso # (Auto) Immature Gran # (Auto) APTT PTT Ratio Sample Site POC pH POC pCO2 POC pO2 POC HCO3 POC Total CO2 POC Base Excess POC ABG O2 Sat Claude Test Mixed VBG pH Mixed VBG pCO2 Mixed VBG pO2 Mixed VBG HCO3 Mixed VBG Base Excess Mixed VBG O2 Saturation Barometric Pressure O2 Delivery Device POC O2 Rate POC FiO2 Tidal Volume PEEP Sodium 128 L Potassium 3.5 D Chloride 92 L Carbon Dioxide 27 Anion Gap 9.0 BUN 24 H Creatinine 1.06 Est Cr Clr Drug Dosing 65.2 Est GFR ( Amer) 62.5 Est GFR (Non-Af Amer) 53.9 BUN/Creatinine Ratio 22.9 H Glucose 184 H POC Glucose (other) 229 H 194 H Calcium 8.7 Phosphorus 4.1 D Magnesium 1.9 TSH Free T4 07/05/21 07/05/21 07/05/21 03:52 03:52 05:13 WBC RBC Hgb Hct MCV MCH MCHC RDW Std Deviation RDW Coeff of Shant Plt Count MPV Immature Gran % (Auto) Neut % (Auto) Lymph % (Auto) [place] % (Auto) Eos % (Auto) Baso % (Auto) Neut # (Auto) Lymph # (Auto) [place] # (Auto) Eos # (Auto) Baso # (Auto) Immature Gran # (Auto) APTT 57.6 H* PTT Ratio 2.2 Sample Site Art Line POC pH 7.46 H POC pCO2 38 POC pO2 63 L POC HCO3 27 H POC Total CO2 28 POC Base Excess 3.0 H POC ABG O2 Sat 93.0 Claude Test NA Mixed VBG pH Mixed VBG pCO2 Mixed VBG pO2 Mixed VBG HCO3 Mixed VBG Base Excess Mixed VBG O2 Saturation Barometric Pressure O2 Delivery Device Ventilator POC O2 Rate 26 POC FiO2 60 Tidal Volume 380 PEEP 10 Sodium Potassium Chloride Carbon Dioxide Anion Gap BUN Creatinine Est Cr Clr Drug Dosing Est GFR ( Amer) Est GFR (Non-Af Amer) BUN/Creatinine Ratio Glucose POC Glucose (other) 150 H Calcium Phosphorus Magnesium TSH Free T4 07/05/21 07/05/21 07/05/21 06:16 07:16 08:24 WBC RBC Hgb Hct MCV MCH MCHC RDW Std Deviation RDW Coeff of Shant Plt Count MPV Immature Gran % (Auto) Neut % (Auto) Lymph % (Auto) [place] % (Auto) Eos % (Auto) Baso % (Auto) Neut # (Auto) Lymph # (Auto) [place] # (Auto) Eos # (Auto) Baso # (Auto) Immature Gran # (Auto) APTT PTT Ratio Sample Site POC pH POC pCO2 POC pO2 POC HCO3 POC Total CO2 POC Base Excess POC ABG O2 Sat Claude Test Mixed VBG pH Mixed VBG pCO2 Mixed VBG pO2 Mixed VBG HCO3 Mixed VBG Base Excess Mixed VBG O2 Saturation Barometric Pressure O2 Delivery Device POC O2 Rate POC FiO2 Tidal Volume PEEP Sodium Potassium Chloride Carbon Dioxide Anion Gap BUN Creatinine Est Cr Clr Drug Dosing Est GFR ( Amer) Est GFR (Non-Af Amer) BUN/Creatinine Ratio Glucose POC Glucose (other) 129 H 117 H Calcium Phosphorus Magnesium TSH 0.265 L Free T4 1.63 H 07/05/21 07/05/21 07/05/21 08:24 08:57 10:23 WBC 10.60 RBC 4.00 L Hgb 13.0 Hct 37.2 MCV 93.0 MCH 32.5 MCHC 34.9 RDW Std Deviation 46.6 H RDW Coeff of Shant 13.6 Plt Count 369 MPV 10.0 Immature Gran % (Auto) 2.0 Neut % (Auto) 81.0 Lymph % (Auto) 10.8 [place] % (Auto) 6.0 Eos % (Auto) 0.1 Baso % (Auto) 0.1 Neut # (Auto) 8.59 H Lymph # (Auto) 1.14 L [place] # (Auto) 0.64 H Eos # (Auto) 0.01 Baso # (Auto) 0.01 Immature Gran # (Auto) 0.21 H APTT PTT Ratio Sample Site POC pH POC pCO2 POC pO2 POC HCO3 POC Total CO2 POC Base Excess POC ABG O2 Sat Claude Test Mixed VBG pH Mixed VBG pCO2 Mixed VBG pO2 Mixed VBG HCO3 Mixed VBG Base Excess Mixed VBG O2 Saturation Barometric Pressure O2 Delivery Device POC O2 Rate POC FiO2 Tidal Volume PEEP Sodium Potassium Chloride Carbon Dioxide Anion Gap BUN Creatinine Est Cr Clr Drug Dosing Est GFR ( Amer) Est GFR (Non-Af Amer) BUN/Creatinine Ratio Glucose POC Glucose (other) 106 H 107 H Calcium Phosphorus Magnesium TSH Free T4 07/05/21 07/05/21 07/05/21 11:10 12:14 13:10 WBC RBC Hgb Hct MCV MCH MCHC RDW Std Deviation RDW Coeff of Shant Plt Count MPV Immature Gran % (Auto) Neut % (Auto) Lymph % (Auto) [place] % (Auto) Eos % (Auto) Baso % (Auto) Neut # (Auto) Lymph # (Auto) [place] # (Auto) Eos # (Auto) Baso # (Auto) Immature Gran # (Auto) APTT PTT Ratio Sample Site POC pH POC pCO2 POC pO2 POC HCO3 POC Total CO2 POC Base Excess POC ABG O2 Sat Claude Test Mixed VBG pH Mixed VBG pCO2 Mixed VBG pO2 Mixed VBG HCO3 Mixed VBG Base Excess Mixed VBG O2 Saturation Barometric Pressure O2 Delivery Device POC O2 Rate POC FiO2 Tidal Volume PEEP Sodium Potassium Chloride Carbon Dioxide Anion Gap BUN Creatinine Est Cr Clr Drug Dosing Est GFR ( Amer) Est GFR (Non-Af Amer) BUN/Creatinine Ratio Glucose POC Glucose (other) 119 H 134 H 145 H Calcium Phosphorus Magnesium TSH Free T4 07/05/21 07/05/21 07/05/21 14:14 16:11 18:00 WBC RBC Hgb Hct MCV MCH MCHC RDW Std Deviation RDW Coeff of Shant Plt Count MPV Immature Gran % (Auto) Neut % (Auto) Lymph % (Auto) [place] % (Auto) Eos % (Auto) Baso % (Auto) Neut # (Auto) Lymph # (Auto) [place] # (Auto) Eos # (Auto) Baso # (Auto) Immature Gran # (Auto) APTT PTT Ratio Sample Site POC pH POC pCO2 POC pO2 POC HCO3 POC Total CO2 POC Base Excess POC ABG O2 Sat Claude Test Mixed VBG pH Mixed VBG pCO2 Mixed VBG pO2 Mixed VBG HCO3 Mixed VBG Base Excess Mixed VBG O2 Saturation Barometric Pressure O2 Delivery Device POC O2 Rate POC FiO2 Tidal Volume PEEP Sodium 130 L Potassium 4.7 D Chloride 93 L Carbon Dioxide 28 Anion Gap 9.0 BUN 27 H Creatinine 1.06 Est Cr Clr Drug Dosing 65.2 Est GFR ( Amer) 62.5 Est GFR (Non-Af Amer) 53.9 BUN/Creatinine Ratio 25.0 H Glucose 143 H POC Glucose (other) 147 H 147 H Calcium 8.2 L Phosphorus 5.0 H Magnesium 2.2 TSH Free T4 07/05/21 07/05/21 18:07 19:35 WBC RBC Hgb Hct MCV MCH MCHC RDW Std Deviation RDW Coeff of Shant Plt Count MPV Immature Gran % (Auto) Neut % (Auto) Lymph % (Auto) [place] % (Auto) Eos % (Auto) Baso % (Auto) Neut # (Auto) Lymph # (Auto) [place] # (Auto) Eos # (Auto) Baso # (Auto) Immature Gran # (Auto) APTT PTT Ratio Sample Site POC pH POC pCO2 POC pO2 POC HCO3 POC Total CO2 POC Base Excess POC ABG O2 Sat Claude Test Mixed VBG pH 7.36 Mixed VBG pCO2 58 H Mixed VBG pO2 33 L Mixed VBG HCO3 32 H Mixed VBG Base Excess 4.5 H Mixed VBG O2 Saturation < 60.0 Barometric Pressure 731.5 O2 Delivery Device POC O2 Rate POC FiO2 Tidal Volume PEEP Sodium Potassium Chloride Carbon Dioxide Anion Gap BUN Creatinine Est Cr Clr Drug Dosing Est GFR ( Amer) Est GFR (Non-Af Amer) BUN/Creatinine Ratio Glucose POC Glucose (other) 149 H Calcium Phosphorus Magnesium TSH Free T4 PG Care Time/CCT Total # of Minutes Spent Total Time Spent with Patient: Total time spent is greater than 50% in coordination of care (as documented) at patient's floor/unit and/or counseling patient: Coding Level of Care Code 71149 Subseq Hosp Care Lvl 2 Diagnoses Acute respiratory failure with hypoxia and hypercapnia J96.01; J96.02 Rapid atrial fibrillation I48.91 Stress-induced cardiomyopathy I51.81 Pneumonia due to COVID-19 virus U07.1; J12.82 Hypomagnesemia E83.42 COPD (chronic obstructive pulmonary disease) J44.9 Foot drop, bilateral M21.371; M21.372 Hyperlipidemia E78.5 HTN (hypertension) I10 Chronic radicular lumbar pain M54.16; G89.29 Restless leg syndrome G25.81 Urinary Incontinence R32 GERD (gastroesophageal reflux disease) K21.9 DMII (diabetes mellitus, type 2) E11.9 Morbid obesity with BMI of 50.0-59.9, adult E66.01; Z68.43 Hydroureteronephrosis N13.30 Enteritis K52.9 VIKKI (obstructive sleep apnea) G47.33 DVT prophylaxis Z29.9 Rhabdomyolysis due to COVID-19 U07.1; M62.82 Acute systolic CHF (congestive heart failure) I50.21
[2021-07-05] MEDS ORDERED: HEPARIN SOD 5,000 UNIT/0.5 ML VIAL SQ SCH (22:00)
[2021-07-06] MEDS ORDERED: FUROSEMIDE 40 MG/4 ML VIAL IV ONE (00:35)
[2021-07-06] MEDS: propofoL 1,000 MG/100 ML VIAL IV SCH ×7 (01:33→22:04)
[2021-07-06] MEDS: fentaNYL DRIP 1,250 MCG/250 ML BAG IV SCH ×3 (03:05→19:50)
[2021-07-06] MEDS ORDERED: Heparin IV Adult Wt-Based Standard *NO* Bolus Protocol IV ONE (03:22)
[2021-07-06] MEDS ORDERED: HEPARIN SODIUM/DEXTROSE 25,000 UNITS/500 ML BAG IV SCH (03:45)
[2021-07-06] MEDS ORDERED: OPTIRAY 320 125ml IV ONE (04:44)
[2021-07-06 05:20] LABS: iSTAT Art Bld Gas pCO2 Correct 54 mmHg (35-46); iSTAT Art Bld Gas pH Corrected 7.391 (7.35-7.45); iSTAT Arterial Blood Gas HCO3 33 meg/L (19-24); iSTAT Arterial Blood Gas pCO2 55 mmHg (35-46); iSTAT Arterial Blood Gas pH 7.38 (7.35-7.45); iSTAT Arterial Blood Gas pO2 65 mmHg (80-95); iSTAT Arterial Blood Gas pO2 C 63; iSTAT Carbon Dioxide 35 mmol/L (24-31); iSTAT FiO2 100 %; iSTAT Hematocrit 37 % (37-47); iSTAT Hemoglobin 12.6 g/dl (12.0-16.0); iSTAT Potassium 4.3 mmol/L (3.3-5.0); iSTAT Site Art Line; iSTAT Sodium 131 mmol/L (135-144)
[2021-07-06 06:08] LABS: Hematocrit (blood only) 35.5 % (37-47); Hemoglobin 12.1 g/dL (12.0-16.0); Immature Granulocytes # (auto) 0.04 K/uL (0.00-0.02); Immature Granulocytes % (auto) 0.6 %; Lymphocytes # (auto) 0.36 K/uL (1.2-3.4); Lymphocytes % (auto) 5.8 %; Mean Corpuscular Hgb Conc 34.1 g/dL (32-36); Mean Corpuscular Volume 93.9 fL (80-100); Mean Platelet Volume 10.3 fL (7.4-10.4); Monocytes # (auto) 0.32 K/uL (0.11-0.59); Monocytes % (auto) 5.1 %; Neutrophils % (auto) 88.5 %; Platelet Count 267 K/uL (130-400); RDW Coefficient of Variation 13.5 % (11.5-14.5); RDW Standard Deviation 46.7 fL (36.4-46.3); Red Blood Count 3.78 M/uL (4.2-5.4); White Blood Count 6.22 K/uL (4.8-10.8)
[2021-07-06 06:14] LABS: Partial Thromboplastin Ratio 1.2; Partial Thromboplastin Time 30.8 Seconds (21.0-31.0)
[2021-07-06] MEDS: INSULIN REGULAR 250 UNITS in SODIUM CHLORIDE 0.9% 247.5 ML IV SCH (06:27)
[2021-07-06] MEDS: PHENYLEPHRINE HCL 80 MG in DEXTROSE 5% 500 ML IV SCH (06:28)
[2021-07-06 06:39] LABS: BUN Creatinine Ratio 33.5 (10-20); Calcium 8.3 mg/dl (8.5-10.1); Creatinine Clr Calc Pharmacy 73.6 ml/min; Est GFR (African American) 74.2 ml/min
[2021-07-06] MEDS: ICU ELECTROLYTE REPLACEMENT PROTOCOL SCH ×2 (06:40→18:25)
[2021-07-06 06:49] LABS: Phosphorus 4.3 mg/dl (2.5-4.9)
--- NOTE | 2021-07-06 06:56 | CT Scan Report ---
CT ANGIOGRAPHY OF THE CHEST, PULMONARY EMBOLUS PROTOCOL CLINICAL HISTORY: Hypoxia. Covid. COMPARISON STUDY: Chest CT June 29, 2021 chest radiograph performed earlier today. TECHNIQUE: Following IV administration of 118 mL of Optiray, helical axial images of the chest were o btained utilizing the pulmonary embolus protocol. Maximal intensity projections and sagittal and cor onal reformats were viewed on an independent 3D workstation. IV contrast was administered without co mplication. Automated exposure control was utilized for the study. A dose lowering technique was ut ilized adhering to the principles of ALARA. CT DOSE: 735.95 mGycm FINDINGS: There is dilatation of the central pulmonary arteries. The main pulmonary artery measures 3.9 cm in caliber. No central pulmonary emboli are identified. Evaluation of the segmental and subseg mental pulmonary arteries is suboptimal given respiratory motion artifact. There are several apparent linear filling defects within segmental right lower lobe pulmonary arteries. Comparison with prior e xam is difficult given motion artifact on that exam. Cardiomegaly is noted. There is no pericardial e ffusion. No enlarged thoracic lymph nodes are noted. Extensive multifocal consolidation and groundgla ss opacities are noted within the lungs. Findings have progressed since CT of June 29, 2021. Cent ral airways are patent. Tip of nasogastric tube is within the body of the stomach. Endotracheal tube is satisfactorily positioned. IMPRESSION: 1. No central pulmonary emboli. Exam compromised by motion artifact however linear filling defects wi thin segmental right lower lobe pulmonary arteries suggest chronic pulmonary emboli. Comparison with prior exam difficult given motion artifact on that exam. This finding will be called/faxed to the ord ering provider at time of dictation. 2. Progression of extensive multifocal consolidation and groundglass opacities within the lungs since chest CT of June 29, 2021. This is consistent with viral pneumonia. 3. Dilatation of the central pulmonary arteries which raises the possibility of pulmonary arterial hy pertension. 4. Cardiomegaly. ACT 112: Negative or not required by law. Electronically signed by: Darrel Au M.D. 07/06/2021 6:55 AM
--- NOTE | 2021-07-06 06:58 | XRay Report ---
XR chest 1V portable CLINICAL HISTORY: decreased SaO2 COMPARISON STUDY: Chest radiograph July 05, 2021. FINDINGS: Tip of endotracheal tube is 3.4 cm above the lee ann. Tip of nasogastric tube is at least wi thin the body of the stomach. Right internal jugular central line is in place. There is no pneumothor ax or pleural effusion. Cardiomegaly is unchanged. Left shoulder arthroplasty is partially imaged. Ex tensive bilateral airspace opacities have slightly improved. IMPRESSION: 1. Satisfactory positioning of lines and tubes. 2. Extensive bilateral airspace opacities consistent with viral pneumonia, slightly decreased since p rior exam. ACT 112: Negative or not required by law. Electronically signed by: Darrel Au M.D. 07/06/2021 6:57 AM
[2021-07-06] MEDS ORDERED: PROPOFOL BOLUS FROM BAG IV PRN (07:06)
[2021-07-06] MEDS ORDERED: STAT IV Infusion **Titration per Protocol STA ×3 (07:06→16:23)
[2021-07-06] MEDS ORDERED: propofoL 1,000 MG/100 ML VIAL IV SCH (07:15)
[2021-07-06] MEDS: POTASSIUM CHLORIDE 20 MEQ/15 ML UDC GT SCH ×2 (07:53→17:12)
[2021-07-06] MEDS: MAGNESIUM SULFATE / D5W 1 GM/100 ML BAG IV SCH ×2 (07:53→09:35)
[2021-07-06] MEDS: FLUTICASONE/VILANTEROL 100/25MCG 14 PUFFS/INHALER INH SCH (08:03)
[2021-07-06] MEDS: INSULIN ASPART 100 UNITS/ML 3 ML PEN SC SCH ×5 (08:18→23:56)
[2021-07-06] MEDS: DULoxetine HCL 30 MG CAP PO SCH (08:18)
[2021-07-06] MEDS: MIRABEGRON ER 25 MG TAB PO SCH (08:19)
[2021-07-06] MEDS: INSULIN HUMAN NPH SC SCH (08:48)
[2021-07-06] MEDS: dexAMETHasone 6 MG in SYRINGE 0 ML IV SCH (08:57)
[2021-07-06] MEDS: GABAPENTIN 250 MG/5 ML 470 ML BTL PO SCH ×2 (08:57→20:02)
[2021-07-06] MEDS: FUROSEMIDE 40 MG/4 ML VIAL IV SCH ×2 (08:57→20:02)
[2021-07-06] MEDS: PANTOprazole 40 MG in SYRINGE 0 ML IV SCH ×2 (08:58→19:54)
[2021-07-06] MEDS: ROSUVASTATIN CALCIUM 10 MG TAB PO SCH (08:59)
[2021-07-06] MEDS: INSULIN GLARGINE SOLOSTAR 100 UNITS/ML 3 ML PEN SC SCH (10:10)
--- NOTE | 2021-07-06 10:13 | Hospitalist Progress Note ---
Date of Service July 06, 2021 Assessment & Plan (1) Acute respiratory failure with hypoxia and hypercapnia: Plan: 2nd to severe COVID-19 pneumonia and acute CHF/stress-induced cardiomyopathy. s/p intubation 07/04/21. remains intubated and ventilated today CTA negative for PE Dr. Cooper to evaluate today (2) Pneumonia due to COVID-19 virus: Plan: severe, with resulting acute hypoxic/hypercapneic respiratory failure and ARDS. progressive disease since admission with ultimate maxed out settings on HFNC and 100% FIO2 requirements on 07/04. s/p intubation with mech ventilation 07/04. Had received 5 days of baricitinib - now d/c due to vent status. Cont dexamethasone 6mg IV daily; day #8 Completed 5-day course of Remdesivir. Acute systolic/diastolic CHF - cont to diurese. No evidence of bacterial superinfection. Defer vent management and prone positioning to Dr Cooper (3) Stress-induced cardiomyopathy: Plan: s/p heart alert with emergent cath by Dr Brown on 07/04 due to suspected STEMI. Developed ST segment elevations shortly after intubation. Cath - normal coronaries, global hypokinesis - EF 30%. EF was normal just a few days prior. Takotsubo's. This was the cause of her abnormal EKG and ST segment elevations pre-cath. Continue diuresis. Will ultimately need beta kelvin. Repeat echo this admission. Appreciate Dr Brown and his assistance. (4) Rapid atrial fibrillation: Plan: 07/04 AM -- initially on cardizem infusion which was subsequently stopped prior to intubation & her heart alert. Ultimately underwent synchronized cardioversion which was not successful. She was loaded with amiodarone bolus, then amiodarone infusion. Converted back to NSR late 07/04. Amiodarone drip now off. Will remain on heparin drip. repeat CTA chest on 07/06 was negative for PE, only showed progression of ground glass opacities TSH noted to be slightly depressed and FT4 slightly high - simply repeat these in a few weeks. This is not c/w significant hyperthyroidism leading to a.fib. (5) Acute systolic CHF (congestive heart failure): Plan: echo earlier this week with preserved EF but IVC dilated. had been receiving once daily IV lasix. heart alert 07/04 - stress-induced cardiomyopathy with EF 30% based on cath showing normal coronaries. cont diuresis. will ultimately need BB if BP can tolerate. (6) Hypomagnesemia: Plan: replaced/resolved (7) COPD (chronic obstructive pulmonary disease): Plan: cont steroids/bronchodilators (8) Foot drop, bilateral: Plan: from lumbar radiculopathy - wears braces chronically at home (9) Hyperlipidemia: Plan: statin no CAD on cath (10) HTN (hypertension): Plan: now on pressors for BP support (11) Chronic radicular lumbar pain: Plan: Continue gabapentin baclofen and tramadol on hold (12) Restless leg syndrome: Plan: Cont pramipexole (13) Urinary Incontinence: Plan: goodwin (14) GERD (gastroesophageal reflux disease): Plan: Continue IV PPI twice daily (15) DMII (diabetes mellitus, type 2): Plan: ICU protocol (16) Morbid obesity with BMI of 50.0-59.9, adult: Plan: BMI 51 (17) Hydroureteronephrosis: Plan: b/l, as seen on CT nothing to do at this time 2nd to urinary reflux disease?? this is a risk factor for recurrent UTI, CKD, etc after recovering from COVID -- send to urology as outpatient (18) Enteritis: Plan: as seen on admission CT 2nd to COVID-19 infection no further diarrhea resolved (19) VIKKI (obstructive sleep apnea): Plan: now vented (20) DVT prophylaxis: Plan: heparin infusion (21) Rhabdomyolysis due to COVID-19: Plan: resolved; most recent CPK wnl Plan: contact is the patient's son for any type of procedure Dr. Cooper managing patient Admission and Anticipated Discharge Date Admission Date: June 29, 2021 Subjective patient sedated and ventilated CTA chest - no PE mucous plug removed overnight with suctioning Dr. Cooper to evaluate, may decide to prone her she is off all pressors at this point reviewed chart and labs, spoke with RN at the bedside Review of Systems Review of Systems: Unobtainable due to endotracheal tube and Unobtainable due to reduced consciousness Physical Exam Physical Exam: General: well developed, obese, sedated, mechanical ventilation Neck: supple, trachea midline, normal thyroid Lungs: symmetric chest movement, on ventilator Heart: regular S1 and S2, no murmur, peripheral pulses normal, capillary refill normal, no edema Abdomen: soft, NT, ND, + BS, no hepatomegaly, normal to percussion Extremities: normal in appearance, no cyanosis, no petechiae, strength is 5/5 bilaterally Neuro: sedated, CN II-XII intact, no focal deficits Skin: warm, dry, no rash, normal turgor Psych: sedated Results & Data Results & Data ([facility]) Vital Signs (Past 12 Hours) Vital Signs Temp Pulse Pulse Resp BP BP Pulse Ox 07/06/21 09:30 58 L 20 91 07/06/21 09:00 56 L 32 H 92 07/06/21 08:30 36.4 C L 56 L 18 93 07/06/21 08:25 50 L 20 94 07/06/21 08:00 36.3 C L 56 L 20 92 07/06/21 07:30 36.3 C L 59 L 21 90 07/06/21 07:03 36.9 C 69 18 134/75 90 07/06/21 07:00 36.3 C L 67 19 92 07/06/21 06:30 36.2 C L 61 16 92 07/06/21 06:00 36.3 C L 51 L 20 110/59 L 91 07/06/21 05:30 36.3 C L 58 L 20 90 07/06/21 05:00 36.7 C 64 20 88/58 L 91 07/06/21 04:44 69 20 120/84 96 07/06/21 04:00 36.7 C 59 L 20 97 07/06/21 03:30 36.6 C 60 21 89 L 07/06/21 03:25 56 L 20 91 07/06/21 03:00 36.7 C 60 20 94/62 L 91 07/06/21 02:30 36.7 C 65 21 89 L 07/06/21 02:00 36.6 C 63 21 95/63 L 88 L 07/06/21 01:30 36.5 C 53 L 20 89 L 07/06/21 01:00 36.5 C 46 L 20 129/79 91 07/06/21 00:30 36.5 C 48 L 20 90 07/06/21 00:00 36.5 C 46 L 20 104/67 90 07/05/21 23:30 36.5 C 49 L 20 92 07/05/21 23:00 36.7 C 47 L 20 113/76 92 07/05/21 22:30 36.7 C 49 L 21 90 Laboratory Results Laboratory Results - last 24 hr 07/05/21 07/05/21 07/05/21 10:23 11:10 12:14 WBC RBC Hgb POC Hgb Hct POC Hct MCV MCH MCHC RDW Std Deviation RDW Coeff of Shant Plt Count MPV Immature Gran % (Auto) Neut % (Auto) Lymph % (Auto) [place] % (Auto) Eos % (Auto) Baso % (Auto) Neut # (Auto) Lymph # (Auto) [place] # (Auto) Eos # (Auto) Baso # (Auto) Immature Gran # (Auto) APTT PTT Ratio Sample Site POC pH POC pCO2 POC pO2 POC HCO3 POC Total CO2 POC Base Excess ABG pH (Temp Correct) ABG pCO2 (Temp Corrct POC ABG pO2 at Pt Temp POC ABG O2 Sat Claude Test Mixed VBG pH Mixed VBG pCO2 Mixed VBG pO2 Mixed VBG HCO3 Mixed VBG Base Excess Mixed VBG O2 Saturation Barometric Pressure O2 Delivery Device POC O2 Rate POC FiO2 Tidal Volume PEEP POC Sodium Sodium POC Potassium Potassium Chloride Carbon Dioxide Anion Gap BUN Creatinine Est Cr Clr Drug Dosing Est GFR ( Amer) Est GFR (Non-Af Amer) BUN/Creatinine Ratio Glucose POC Glucose POC Glucose (other) 107 H 119 H 134 H Calcium Phosphorus Magnesium 07/05/21 07/05/21 07/05/21 13:10 14:14 16:11 WBC RBC Hgb POC Hgb Hct POC Hct MCV MCH MCHC RDW Std Deviation RDW Coeff of Shant Plt Count MPV Immature Gran % (Auto) Neut % (Auto) Lymph % (Auto) [place] % (Auto) Eos % (Auto) Baso % (Auto) Neut # (Auto) Lymph # (Auto) [place] # (Auto) Eos # (Auto) Baso # (Auto) Immature Gran # (Auto) APTT PTT Ratio Sample Site POC pH POC pCO2 POC pO2 POC HCO3 POC Total CO2 POC Base Excess ABG pH (Temp Correct) ABG pCO2 (Temp Corrct POC ABG pO2 at Pt Temp POC ABG O2 Sat Claude Test Mixed VBG pH Mixed VBG pCO2 Mixed VBG pO2 Mixed VBG HCO3 Mixed VBG Base Excess Mixed VBG O2 Saturation Barometric Pressure O2 Delivery Device POC O2 Rate POC FiO2 Tidal Volume PEEP POC Sodium Sodium POC Potassium Potassium Chloride Carbon Dioxide Anion Gap BUN Creatinine Est Cr Clr Drug Dosing Est GFR ( Amer) Est GFR (Non-Af Amer) BUN/Creatinine Ratio Glucose POC Glucose POC Glucose (other) 145 H 147 H 147 H Calcium Phosphorus Magnesium 07/05/21 07/05/21 07/05/21 18:00 18:07 19:35 WBC RBC Hgb POC Hgb Hct POC Hct MCV MCH MCHC RDW Std Deviation RDW Coeff of Shant Plt Count MPV Immature Gran % (Auto) Neut % (Auto) Lymph % (Auto) [place] % (Auto) Eos % (Auto) Baso % (Auto) Neut # (Auto) Lymph # (Auto) [place] # (Auto) Eos # (Auto) Baso # (Auto) Immature Gran # (Auto) APTT PTT Ratio Sample Site POC pH POC pCO2 POC pO2 POC HCO3 POC Total CO2 POC Base Excess ABG pH (Temp Correct) ABG pCO2 (Temp Corrct POC ABG pO2 at Pt Temp POC ABG O2 Sat Claude Test Mixed VBG pH 7.36 Mixed VBG pCO2 58 H Mixed VBG pO2 33 L Mixed VBG HCO3 32 H Mixed VBG Base Excess 4.5 H Mixed VBG O2 Saturation < 60.0 Barometric Pressure 731.5 O2 Delivery Device POC O2 Rate POC FiO2 Tidal Volume PEEP POC Sodium Sodium 130 L POC Potassium Potassium 4.7 D Chloride 93 L Carbon Dioxide 28 Anion Gap 9.0 BUN 27 H Creatinine 1.06 Est Cr Clr Drug Dosing 65.2 Est GFR ( Amer) 62.5 Est GFR (Non-Af Amer) 53.9 BUN/Creatinine Ratio 25.0 H Glucose 143 H POC Glucose POC Glucose (other) 149 H Calcium 8.2 L Phosphorus 5.0 H Magnesium 2.2 07/05/21 07/05/21 07/05/21 19:37 22:33 23:03 WBC RBC Hgb POC Hgb Hct POC Hct MCV MCH MCHC RDW Std Deviation RDW Coeff of Shant Plt Count MPV Immature Gran % (Auto) Neut % (Auto) Lymph % (Auto) [place] % (Auto) Eos % (Auto) Baso % (Auto) Neut # (Auto) Lymph # (Auto) [place] # (Auto) Eos # (Auto) Baso # (Auto) Immature Gran # (Auto) APTT PTT Ratio Sample Site POC pH POC pCO2 POC pO2 POC HCO3 POC Total CO2 POC Base Excess ABG pH (Temp Correct) ABG pCO2 (Temp Corrct POC ABG pO2 at Pt Temp POC ABG O2 Sat Claude Test Mixed VBG pH Mixed VBG pCO2 Mixed VBG pO2 Mixed VBG HCO3 Mixed VBG Base Excess Mixed VBG O2 Saturation Barometric Pressure O2 Delivery Device POC O2 Rate POC FiO2 Tidal Volume PEEP POC Sodium Sodium POC Potassium Potassium Chloride Carbon Dioxide Anion Gap BUN Creatinine Est Cr Clr Drug Dosing Est GFR ( Amer) Est GFR (Non-Af Amer) BUN/Creatinine Ratio Glucose POC Glucose POC Glucose (other) 121 H 79 82 Calcium Phosphorus Magnesium 07/05/21 07/06/21 07/06/21 23:36 00:43 03:03 WBC RBC Hgb POC Hgb Hct POC Hct MCV MCH MCHC RDW Std Deviation RDW Coeff of Shant Plt Count MPV Immature Gran % (Auto) Neut % (Auto) Lymph % (Auto) [place] % (Auto) Eos % (Auto) Baso % (Auto) Neut # (Auto) Lymph # (Auto) [place] # (Auto) Eos # (Auto) Baso # (Auto) Immature Gran # (Auto) APTT PTT Ratio Sample Site POC pH POC pCO2 POC pO2 POC HCO3 POC Total CO2 POC Base Excess ABG pH (Temp Correct) ABG pCO2 (Temp Corrct POC ABG pO2 at Pt Temp POC ABG O2 Sat Claude Test Mixed VBG pH Mixed VBG pCO2 Mixed VBG pO2 Mixed VBG HCO3 Mixed VBG Base Excess Mixed VBG O2 Saturation Barometric Pressure O2 Delivery Device POC O2 Rate POC FiO2 Tidal Volume PEEP POC Sodium Sodium POC Potassium Potassium Chloride Carbon Dioxide Anion Gap BUN Creatinine Est Cr Clr Drug Dosing Est GFR ( Amer) Est GFR (Non-Af Amer) BUN/Creatinine Ratio Glucose POC Glucose 114 H POC Glucose (other) 100 H 114 H Calcium Phosphorus Magnesium 07/06/21 07/06/21 07/06/21 05:02 05:04 05:32 WBC 6.22 RBC 3.78 L Hgb 12.1 POC Hgb 12.6 Hct 35.5 L POC Hct 37 MCV 93.9 MCH 32.0 MCHC 34.1 RDW Std Deviation 46.7 H RDW Coeff of Shant 13.5 Plt Count 267 MPV 10.3 Immature Gran % (Auto) 0.6 Neut % (Auto) 88.5 Lymph % (Auto) 5.8 [place] % (Auto) 5.1 Eos % (Auto) 0.0 Baso % (Auto) 0.0 Neut # (Auto) 5.50 Lymph # (Auto) 0.36 L [place] # (Auto) 0.32 Eos # (Auto) 0.00 Baso # (Auto) 0.00 Immature Gran # (Auto) 0.04 H APTT PTT Ratio Sample Site Art Line POC pH 7.38 POC pCO2 55 H POC pO2 65 L POC HCO3 33 H POC Total CO2 35 H POC Base Excess 8.0 H ABG pH (Temp Correct) 7.391 ABG pCO2 (Temp Corrct 54 H POC ABG pO2 at Pt Temp 63 POC ABG O2 Sat 92.0 Claude Test NA Mixed VBG pH Mixed VBG pCO2 Mixed VBG pO2 Mixed VBG HCO3 Mixed VBG Base Excess Mixed VBG O2 Saturation Barometric Pressure O2 Delivery Device Ventilator POC O2 Rate 20 POC FiO2 100 Tidal Volume 380 PEEP 12 POC Sodium 131 L Sodium POC Potassium 4.3 Potassium Chloride Carbon Dioxide Anion Gap BUN Creatinine Est Cr Clr Drug Dosing Est GFR ( Amer) Est GFR (Non-Af Amer) BUN/Creatinine Ratio Glucose POC Glucose 127 H POC Glucose (other) Calcium Phosphorus Magnesium 07/06/21 07/06/21 07/06/21 05:32 05:32 09:29 WBC RBC Hgb POC Hgb Hct POC Hct MCV MCH MCHC RDW Std Deviation RDW Coeff of Shant Plt Count MPV Immature Gran % (Auto) Neut % (Auto) Lymph % (Auto) [place] % (Auto) Eos % (Auto) Baso % (Auto) Neut # (Auto) Lymph # (Auto) [place] # (Auto) Eos # (Auto) Baso # (Auto) Immature Gran # (Auto) APTT 30.8 PTT Ratio 1.2 Sample Site POC pH POC pCO2 POC pO2 POC HCO3 POC Total CO2 POC Base Excess ABG pH (Temp Correct) ABG pCO2 (Temp Corrct POC ABG pO2 at Pt Temp POC ABG O2 Sat Claude Test Mixed VBG pH Mixed VBG pCO2 Mixed VBG pO2 Mixed VBG HCO3 Mixed VBG Base Excess Mixed VBG O2 Saturation Barometric Pressure O2 Delivery Device POC O2 Rate POC FiO2 Tidal Volume PEEP POC Sodium Sodium 128 L POC Potassium Potassium 4.0 Chloride 92 L Carbon Dioxide 29 Anion Gap 7.0 BUN 31 H Creatinine 0.92 Est Cr Clr Drug Dosing 73.6 Est GFR ( Amer) 74.2 Est GFR (Non-Af Amer) 64.0 BUN/Creatinine Ratio 33.5 H Glucose 126 H POC Glucose POC Glucose (other) 153 H Calcium 8.3 L Phosphorus 4.3 Magnesium 2.0 Medications Administered Current Inpatient Medications Acetaminophen (Acetaminophen 325 Mg Tab) 650 mg PO Q4H PRN PRN Reason: Pain or Fever Stop: 07/29/21 23:07 Last Admin: 07/01/21 08:36 Dose: 650 mg Documented by: Albuterol (Albuterol 0.083% Nebu Soln 3 Ml Vial) 2.5 mg NEB Q4 PRN PRN Reason: shortness of breath Stop: 07/29/21 23:07 Baclofen (Baclofen 10 Mg Tab) 10 mg PO BID DEDE Stop: 07/29/21 23:07 Last Admin: 07/02/21 12:33 Dose: Not Given Documented by: Dextrose (Dextrose 50% 50 Ml Syringe) 25 - 50 ml IV UD PRN; Protocol PRN Reason: Hypoglycemia Protocol Stop: 07/29/21 23:07 Duloxetine HCl (Duloxetine Hcl 30 Mg Cap) 30 mg PO BID DEDE Stop: 07/29/21 23:07 Last Admin: 07/06/21 08:18 Dose: Not Given Documented by: Fentanyl Citrate (Fentanyl Bolus From Bag) 50 mcg IV Q1H PRN PRN Reason: Pain or Agitation Stop: 07/18/21 16:20 Fluticasone Propionate (Fluticasone Propionate Na Spr 16 Gm Btl) 2 sprays FRANCISCO DAILY PRN PRN Reason: NASALL CONGESTION Stop: 07/29/21 23:07 Last Admin: 07/02/21 21:38 Dose: 2 sprays Documented by: Fluticasone/Vilanterol (Fluticasone/Vilanterol 100/25mcg 14 Puffs/Inhaler) 1 puffs INH HS DEDE Stop: 07/29/21 23:07 Last Admin: 07/06/21 08:03 Dose: Not Given Documented by: Furosemide (Furosemide 40 Mg/4 Ml Vial) 40 mg IV BID DEDE Stop: 08/05/21 08:59 Last Admin: 07/06/21 08:57 Dose: 40 mg Documented by: Gabapentin (Gabapentin 250 Mg/5 Ml 470 Ml Btl) 300 mg PO BID DEDE Stop: 08/03/21 20:59 Last Admin: 07/06/21 08:57 Dose: 300 mg Documented by: Glucagon (Glucagon For Inj 1 Mg Vial) 1 mg SQ UD PRN; Protocol PRN Reason: Hypoglycemia Protocol Stop: 07/29/21 23:07 Glucose (Glucose 10 Tabs/Tube) 4 - 8 tabs PO UD PRN; Protocol PRN Reason: Hypoglycemia Protocol Stop: 07/29/21 23:07 Glucose (Glucose 40% Gel 15 Gm Tube) 15 - 30 gm PO UD PRN; Protocol PRN Reason: Hypoglycemia Protocol Stop: 07/29/21 23:07 Heparin Sodium (Porcine) (Heparin Sod 5,000 Unit/0.5 Ml Vial) 5,000 units SQ Q8 DEDE Stop: 08/05/21 13:59 Dexamethasone 6 mg/ Syringe 1.5 mls @ 1 mls/min IV DAILY DEDE Stop: 07/30/21 08:59 Last Admin: 07/06/21 08:57 Dose: 1 mls/min Documented by: Pantoprazole Sodium 40 mg/ (Syringe) 10 mls @ 5 mls/min IV BID DEDE Stop: 08/03/21 20:59 Last Admin: 07/06/21 08:58 Dose: 5 mls/min Documented by: Propofol (Diprivan) 1,000 mg in 100 mls @ 15.36 mls/hr IV .Q6H31M DEDE; Protocol Stop: 07/07/21 16:29 Last Admin: 07/06/21 07:53 Dose: 20 mcg/kg/min, 15.4 mls/hr Documented by: Fentanyl Citrate (Fentanyl Drip) 1,250 mcg in 250 mls @ 25 mls/hr IV .Q10H DEDE; Protocol Stop: 07/18/21 16:29 Last Titration: 07/06/21 07:19 Dose: 125 mcg/hr, 25 mls/hr Documented by: Amiodarone HCl/Dextrose (Nexterone / D5w) 360 mg in 200 mls @ 16.667 mls/hr IV .Q12H DEDE Stop: 08/03/21 22:59 Last Admin: 07/05/21 14:23 Dose: Not Given Documented by: Phenylephrine HCl 80 mg/ (Dextrose) 508 mls @ 0 mls/hr IV .Q0M [facility]; Protocol Stop: 08/04/21 00:00 Last Titration: 07/06/21 09:15 Dose: 0 mcg/kg/min, 0 mls/hr Documented by: Insulin Human Regular 250 (units/ Sodium Chloride) 250 mls @ 7 mls/hr IV .Q24H [facility]; Protocol Stop: 08/03/21 22:29 Last Titration: 07/06/21 08:21 Dose: Infused Documented by: Magnesium Sulfate/Dextrose (Magnesium Sulfate / D5w) 1 gm in 100 mls @ 50 mls/hr IV Q2H [facility] Stop: 07/06/21 10:59 Last Admin: 07/06/21 09:35 Dose: 50 mls/hr Documented by: Propofol (Diprivan) 1,000 mg in 100 mls @ 14.868 mls/hr IV .Q6H44M [facility]; Protocol Stop: 07/09/21 07:14 Last Admin: 07/06/21 08:07 Dose: Not Given Documented by: Insulin Aspart (Insulin Aspart 100 Units/Ml 3 Ml Pen) 0 units SC [facility] Stop: 07/29/21 23:07 Last Admin: 07/04/21 22:22 Dose: Not Given Documented by: Insulin Aspart (Insulin Aspart 100 Units/Ml 3 Ml Pen) 0 units SC [facility] Stop: 08/04/21 07:29 Last Admin: 07/06/21 08:18 Dose: Not Given Documented by: Insulin Glargine (Insulin Glargine Solostar 100 Units/Ml 3 Ml Pen) 25 units SC QAM [facility]; Protocol Stop: 08/04/21 14:59 Last Admin: 07/05/21 16:10 Dose: 25 units Documented by: Insulin Human NPH (Insulin Human Nph) 60 units SC DAILY [facility]; Protocol Stop: 08/05/21 08:59 Last Admin: 07/06/21 08:48 Dose: 60 units Documented by: Lorazepam (Lorazepam 0.5 Mg Tab) 0.5 mg PO BID PRN PRN Reason: muscle spasm Stop: 07/29/21 23:07 Last Admin: 07/04/21 00:28 Dose: 0.5 mg Documented by: Miconazole Nitrate (Miconazole Nitrate Powder 43 Gm) 1 appln EXT PRN PRN PRN Reason: Affected Skin Folds Stop: 08/02/21 12:09 Mirabegron (Mirabegron Er 25 Mg Tab) 50 mg PO DAILY [facility] Stop: 07/30/21 08:59 Last Admin: 07/06/21 08:19 Dose: Not Given Documented by: Miscellaneous (Carbohydrates For Hypoglycemia ) 15 - 30 gm PO UD PRN PRN Reason: Hypoglycemia Protocol Stop: 07/29/21 23:07 Miscellaneous (Icu Electrolyte Replacement Protocol) 1 ea N/A BID@,18 [facility]; Protocol Stop: 07/12/21 05:59 Last Admin: 07/06/21 06:40 Dose: 1 ea Documented by: Miscellaneous Information (Pharmacy Glycemic Mgmt Consult) 1 ea N/A UD PRN PRN Reason: Consult Stop: 08/03/21 22:01 Montelukast Sodium (Montelukast Sodium 10 Mg Tablet) 10 mg PO HS [facility] Stop: 07/29/21 23:07 Last Admin: 07/05/21 21:02 Dose: 10 mg Documented by: Morphine Sulfate (Morphine Sulfate 2 Mg/Ml Carp) 2 mg IV Q4H PRN PRN Reason: Pain/respiratory distress Stop: 07/14/21 02:52 Last Admin: 07/03/21 21:38 Dose: 2 mg Documented by: Polyethylene Glycol (Polyethylene (Miralax) 17 Gm Pack) 17 gm PO DAILY PRN PRN Reason: Constipation Stop: 07/29/21 23:07 Potassium Chloride (Potassium Chloride 20 Meq/15 Ml Udc) 10 meq GT BIDM DEDE Stop: 08/04/21 11:59 Last Admin: 07/06/21 07:53 Dose: 10 meq Documented by: Pramipexole Dihydrochloride (Pramipexole Dihydrochlo 0.5 Mg Tab) 0.5 mg PO HS DEDE Stop: 07/29/21 23:07 Last Admin: 07/05/21 21:03 Dose: 0.5 mg Documented by: Propofol (Propofol Bolus From Bag) 20 mg IV Q5M PRN PRN Reason: Sedation Stop: 07/09/21 07:05 Rosuvastatin Calcium (Rosuvastatin Calcium 10 Mg Tab) 10 mg PO QAM DEDE Stop: 07/30/21 08:59 Last Admin: 07/06/21 08:59 Dose: 10 mg Documented by: PG Care Time/CCT Total # of Minutes Spent Total Time Spent with Patient: Total time spent is greater than 50% in coordination of care (as documented) at patient's floor/unit and/or counseling patient: Coding Level of Care Code 15461 Subseq Hosp Care Lvl 2 Diagnoses Acute respiratory failure with hypoxia and hypercapnia J96.01; J96.02 Pneumonia due to COVID-19 virus U07.1; J12.82 Stress-induced cardiomyopathy I51.81 Rapid atrial fibrillation I48.91 Acute systolic CHF (congestive heart failure) I50.21 Hypomagnesemia E83.42 COPD (chronic obstructive pulmonary disease) J44.9 Foot drop, bilateral M21.371; M21.372 Hyperlipidemia E78.5 HTN (hypertension) I10 Chronic radicular lumbar pain M54.16; G89.29 Restless leg syndrome G25.81 Urinary Incontinence R32 GERD (gastroesophageal reflux disease) K21.9 DMII (diabetes mellitus, type 2) E11.9 Morbid obesity with BMI of 50.0-59.9, adult E66.01; Z68.43 Hydroureteronephrosis N13.30 Enteritis K52.9 VIKKI (obstructive sleep apnea) G47.33 DVT prophylaxis Z29.9 Rhabdomyolysis due to COVID-19 U07.1; M62.82
--- NOTE | 2021-07-06 10:55 | Cardiology Progress Note ---
Date of Service July 06, 2021 Assessment & Plan (1) Acute respiratory failure with hypoxia and hypercapnia: Plan: 2. COVID-19 pneumonia 3. Stress-induced cardiomyopathy/acute systolic heart failurelast EF 40%. Right greater than left symptoms 4. Paroxysmal atrial fibrillation with RVR 5. Hyponatremia Off all pressors No recurrent atrial fibrillation for last 2 days Responding to IV diuretics. Renal function stable. Agree with continued twice daily diuretics. Feel heart failure only a modest contributor to current hypoxic respiratory failure. Agree with discontinuation of amiodarone/heparin. Hold off on beta-kelvin/KYLIE at this time for cardiomyopathy. Admission and Anticipated Discharge Date Admission Date: June 29, 2021 Subjective patient sedated and ventilated CTA chest - no PE reviewed chart and labs, spoke with RN at the bedside Weaned off all pressors Amiodarone off, heparin discontinued Telemetry reviewedsinus bradycardia. Converted from atrial fibrillation evening of 07/04 Review of Systems Review of Systems: Unobtainable due to endotracheal tube Physical Exam Physical Exam: General: Intubated/sedated HEENT: Sclerae anicteric Lungs: Clear anteriorly Cardiac: Regular, bradycardic Vascular: right radial artery access site with no ecchymosis, hematoma, with 2+ pulses Abdomen: Soft Extremities: Well perfused, improved lower extremity Results & Data ([facility]) Vital Signs (Past 12 Hours) Vital Signs Temp Pulse Pulse Resp BP BP Pulse Ox 07/06/21 10:00 97.5 F L 57 L 20 93 07/06/21 09:30 58 L 20 91 07/06/21 09:00 56 L 32 H 92 07/06/21 08:30 97.5 F L 56 L 18 93 07/06/21 08:25 50 L 20 94 07/06/21 08:00 97.3 F L 56 L 20 92 07/06/21 07:30 97.3 F L 59 L 21 90 07/06/21 07:03 98.4 F 69 18 134/75 90 07/06/21 07:00 97.3 F L 67 19 92 07/06/21 06:30 97.2 F L 61 16 92 07/06/21 06:00 97.3 F L 51 L 20 110/59 L 91 07/06/21 05:30 97.3 F L 58 L 20 90 07/06/21 05:00 98.1 F 64 20 88/58 L 91 07/06/21 04:44 69 20 120/84 96 07/06/21 04:00 98.1 F 59 L 20 97 07/06/21 03:30 97.9 F 60 21 89 L 07/06/21 03:25 56 L 20 91 07/06/21 03:00 98.1 F 60 20 94/62 L 91 07/06/21 02:30 98.1 F 65 21 89 L 07/06/21 02:00 97.9 F 63 21 95/63 L 88 L 07/06/21 01:30 97.7 F 53 L 20 89 L 07/06/21 01:00 97.7 F 46 L 20 129/79 91 07/06/21 00:30 97.7 F 48 L 20 90 07/06/21 00:00 97.7 F 46 L 20 104/67 90 07/05/21 23:30 97.7 F 49 L 20 92 07/05/21 23:00 98.1 F 47 L 20 113/76 92 PG Care Time/CCT Total # of Minutes Spent Total Time Spent with Patient: Total time spent is greater than 50% in coordination of care (as documented) at patient's floor/unit and/or counseling patient: Coding Level of Care Code 81982 Subseq Hosp Care Lvl 3 Diagnoses Acute respiratory failure with hypoxia and hypercapnia J96.01; J96.02
[2021-07-06] MEDS ORDERED: Nursing to Pharmacy Communication SCH (11:00)
[2021-07-06] MEDS: MIDAZOLAM HCL 125 MG/250 ML BAG IV SCH ×2 (13:41→17:00)
[2021-07-06] MEDS ORDERED: HEPARIN SOD 5,000 UNIT/0.5 ML VIAL SQ SCH (14:00)
--- NOTE | 2021-07-06 14:39 | Critical Care Progress Note ---
Date of Service July 06, 2021 Assessment & Plan (1) Stress-induced cardiomyopathy: (2) Rapid atrial fibrillation: (3) VIKKI (obstructive sleep apnea): (4) COVID-19: (5) Acute respiratory failure with hypoxia and hypercapnia: (6) Pneumonia due to COVID-19 virus: (7) Morbid obesity with BMI of 50.0-59.9, adult: Plan: Impression: This is a 70-year-old female that received 1 dose of Pfizer vaccination 06/04/2021. She developed signs of congestion and fever and presented to PCP June 23, 2021 and was started on Augmentin. Over the next several days she worsened and presented the emergency room 06/29/2021 where she reported that she had been found positive for Covid and was feeling worse. She was started on remdesivir, dexamethasone and supplemental oxygen. The next day she was started on baricitinib. Patient was intubated 07/04/21 following which patient had ST elevation and was taken to [facility]. Clean coronaries with possible stress-induced cardiomyopathy. EF was 30% at that time 24-hour events: Remains sedated. High vent requirements. Hemodynamically stable Recommendations: 1. Neurologic: Continue sedation. The patient needs to be deeply sedated in order to facilitate ventilator synchrony at this point time. If unable to achieve these goals, consideration for neuromuscular blockade may be appropriate. Hold sedation holidays until the patient's ventilatory status would allow for potential SBT's. Continue Neurontin. Hold pramipexole. 2. Cardiovascular: Decreased ejection fraction with probable Takotsubo cardiomyopathy. Romero-Synephrine as needed. Coronaries were clean on cardiac catheterization. Gentle diuresis as tolerated. Atrial fibrillation with rapid ventricular response. Now off amiodarone and in sinus rhythm. Additional management per cardiology. Last BMP was 1112. We will recheck 3. Pulmonary: CT angiogram showed diffuse groundglass opacities with no evidence of pulmonary embolism or vascular filling defects. Discontinue Singulair. 4. GI: Dietary consultation for initiation of trophic tube feeding if the patient is not going to be prone to. 5. Renal: Acid-base status and electrolytes are stable. Discontinue Myrbetriq 6. Endocrine: Glycemic control per protocol. 7. Heme-onc: No active issues. DVT prophylaxis. 8. ID: White count normal. No fever. Procalcitonin 0.07 on 07/02. We will check routine respiratory culture --Prophylaxis VTE: Heparin drip GI: Pantoprazole Lines: Right IJ, left radial, positive [place] Diet: Tube feeds I have personally spent 48 minutes of critical care time in the direct management of this patient. This is a life/limb threatening event. This includes time spent evaluating patient, direct bedside care, chart review, placing orders, interpretation of diagnostic studies, discussion with consultants, patient, and family members, as well as other required patient management activities. This time is exclusive of all separately billable procedures, and teaching time and separate from and in addition to any other critical care service time. Please note the above document was generated using voice recognition software. It may contain grammatical, syntax or spelling errors. Admission and Anticipated Discharge Date Admission Date: June 29, 2021 Subjective Patient is intubated and sedated Review of Systems Review of Systems: Unobtainable due to endotracheal tube Physical Exam Constitutional: + mechanically ventilated Intubated and sedated Neck: trachea midline, no thyromegaly Respiratory: normal respiratory effort, lungs clear to auscultation Cardiovascular: RRR, no murmur, no edema Gastrointestinal (Abdomen): normal bowel sounds, soft, nontender, no hepatosplenomegaly Musculoskeletal: Extremities: extremities normal to inspection Skin: no rashes, warm and dry Neurologic: Nonfocal exam Lymphatic: no cervical lymphadenopathy Results & Data Results & Data ([facility]) Vital Signs (Past 12 Hours) Vital Signs Temp Pulse Pulse Resp BP BP Pulse Ox 07/06/21 11:19 54 L 20 93 07/06/21 10:00 36.4 C L 57 L 20 93 07/06/21 09:30 58 L 20 91 07/06/21 09:00 56 L 32 H 92 07/06/21 08:30 36.4 C L 56 L 18 93 07/06/21 08:25 50 L 20 94 07/06/21 08:00 36.3 C L 56 L 20 92 07/06/21 07:30 36.3 C L 59 L 21 90 07/06/21 07:03 36.9 C 69 18 134/75 90 07/06/21 07:00 36.3 C L 67 19 92 07/06/21 06:30 36.2 C L 61 16 92 07/06/21 06:00 36.3 C L 51 L 20 110/59 L 91 07/06/21 05:30 36.3 C L 58 L 20 90 07/06/21 05:00 36.7 C 64 20 88/58 L 91 07/06/21 04:44 69 20 120/84 96 07/06/21 04:00 36.7 C 59 L 20 97 07/06/21 03:30 36.6 C 60 21 89 L 07/06/21 03:25 56 L 20 91 07/06/21 03:00 36.7 C 60 20 94/62 L 91 07/06/21 02:30 36.7 C 65 21 89 L Critical Care Results & Data Vital Signs (Past 12 Hours) Vital Signs Temp Pulse Pulse Resp BP BP Pulse Ox 07/06/21 11:19 54 L 20 93 07/06/21 10:00 36.4 C L 57 L 20 93 07/06/21 09:30 58 L 20 91 07/06/21 09:00 56 L 32 H 92 07/06/21 08:30 36.4 C L 56 L 18 93 07/06/21 08:25 50 L 20 94 07/06/21 08:00 36.3 C L 56 L 20 92 07/06/21 07:30 36.3 C L 59 L 21 90 07/06/21 07:03 36.9 C 69 18 134/75 90 07/06/21 07:00 36.3 C L 67 19 92 07/06/21 06:30 36.2 C L 61 16 92 07/06/21 06:00 36.3 C L 51 L 20 110/59 L 91 07/06/21 05:30 36.3 C L 58 L 20 90 07/06/21 05:00 36.7 C 64 20 88/58 L 91 07/06/21 04:44 69 20 120/84 96 07/06/21 04:00 36.7 C 59 L 20 97 07/06/21 03:30 36.6 C 60 21 89 L 07/06/21 03:25 56 L 20 91 07/06/21 03:00 36.7 C 60 20 94/62 L 91 07/06/21 02:30 36.7 C 65 21 89 L Lab & Micro Results (Past 24 Hours) RBC 3.78 M/uL (4.2-5.4) L 07/06/21 WBC 6.22 K/uL (4.8-10.8) 07/06/21 Hgb 12.1 g/dL (12.0-16.0) 07/06/21 Hct 35.5 % (37-47) L 07/06/21 MCV 93.9 fL (80-100) 07/06/21 MCH 32.0 pg (25-34) 07/06/21 MCHC 34.1 g/dL (32-36) 07/06/21 RDW Standard Deviation 46.7 fL (36.4-46.3) H 07/06/21 RDW Coefficient of Variation 13.5 % (11.5-14.5) 07/06/21 Plt Count 267 K/uL (130-400) 07/06/21 MPV 10.3 fL (7.4-10.4) 07/06/21 Neutrophils (%) (Auto) 88.5 % 07/06/21 Lymphocytes (%) (Auto) 5.8 % 07/06/21 Monocytes # (Auto) 0.32 K/uL (0.11-0.59) 07/06/21 Eosinophils # (Auto) 0.00 K/uL (0-0.5) 07/06/21 Immature Granulocyte % (Auto) 0.6 % 07/06/21 Neutrophils # (Auto) 5.50 K/uL (1.4-6.5) 07/06/21 Lymphocytes # (Auto) 0.36 K/uL (1.2-3.4) L 07/06/21 Monocytes # (Auto) 0.32 K/uL (0.11-0.59) 07/06/21 Eosinophils # (Auto) 0.00 K/uL (0-0.5) 07/06/21 Basophils # (Auto) 0.00 K/uL (0-0.2) 07/06/21 Immature Granulocyte # (Auto) 0.04 K/uL (0.00-0.02) H 07/06/21 Na 128 mmol/L (136-145) L 07/06/21 K 4.0 mmol/L (3.5-5.1) 07/06/21 Cl 92 mmol/L (98-107) L 07/06/21 CO2 29 mmol/L (21-32) 07/06/21 Anion Gap 7.0 (3-11) 07/06/21 BUN 31 mg/dl (7-18) H 07/06/21 Creatinine 0.92 mg/dl (0.6-1.2) 07/06/21 Estimated GFR ( Amer) 74.2 ml/min 07/06/21 Estimated GFR (Non-Af Amer) 64.0 ml/min 07/06/21 BUN/Creatinine Ratio 33.5 (10-20) H 07/06/21 Glu 126 mg/dl (70-99) H 07/06/21 Ca 8.3 mg/dl (8.5-10.1) L 07/06/21 Phosphorus Level 4.3 mg/dl (2.5-4.9) 07/06/21 Mg 2.0 mg/dl (1.8-2.4) 07/06/21 05:32 07/06/21 Calcium Level 8.3 mg/dl (8.5-10.1) L 07/06/21 05:32 07/06/21 Blood Gas Barometric Pressure 731.5 mm/Hg 07/05/21 19:35 07/05/21 Claude Test NA 07/06/21 05:04 07/06/21 Blood Gas Barometric Pressure 731.5 mm/Hg 07/05/21 19:35 07/05/21 Diagnostic Findings (Past 24 Hours) Chest X-Ray 07/06/21 02:23 XR chest 1V portable CLINICAL HISTORY: decreased SaO2 COMPARISON STUDY: Chest radiograph July 05, 2021. FINDINGS: Tip of endotracheal tube is 3.4 cm above the lee ann. Tip of nasogastric tube is at least within the body of the stomach. Right internal jugular central line is in place. There is no pneumothorax or pleural effusion. Cardiomegaly is unchanged. Left shoulder arthroplasty is partially imaged. Extensive bilateral airspace opacities have slightly improved. IMPRESSION: 1. Satisfactory positioning of lines and tubes. 2. Extensive bilateral airspace opacities consistent with viral pneumonia, slightly decreased since prior exam. ACT 112: Negative or not required by law. Electronically signed by: Darrel Au M.D. 07/06/2021 6:57 AM Chest CTA 07/06/21 03:22 CT ANGIOGRAPHY OF THE CHEST, PULMONARY EMBOLUS PROTOCOL CLINICAL HISTORY: Hypoxia. Covid. COMPARISON STUDY: Chest CT June 29, 2021 chest radiograph performed earlier today. TECHNIQUE: Following IV administration of 118 mL of Optiray, helical axial images of the chest were obtained utilizing the pulmonary embolus protocol. Maximal intensity projections and sagittal and coronal reformats were viewed on an independent 3D workstation. IV contrast was administered without complication. Automated exposure control was utilized for the study. A dose lowering technique was utilized adhering to the principles of ALARA. CT DOSE: 735.95 mGycm FINDINGS: There is dilatation of the central pulmonary arteries. The main pulmonary artery measures 3.9 cm in caliber. No central pulmonary emboli are identified. Evaluation of the segmental and subsegmental pulmonary arteries is suboptimal given respiratory motion artifact. There are several apparent linear filling defects within segmental right lower lobe pulmonary arteries. Comparison with prior exam is difficult given motion artifact on that exam. Cardiomegaly is noted. There is no pericardial effusion. No enlarged thoracic lymph nodes are noted. Extensive multifocal consolidation and groundglass opacities are noted within the lungs. Findings have progressed since CT of June 29, 2021. Central airways are patent. Tip of nasogastric tube is within the body of the stomach. Endotracheal tube is satisfactorily positioned. IMPRESSION: 1. No central pulmonary emboli. Exam compromised by motion artifact however linear filling defects within segmental right lower lobe pulmonary arteries suggest chronic pulmonary emboli. Comparison with prior exam difficult given motion artifact on that exam. This finding will be called/faxed to the ordering provider at time of dictation. 2. Progression of extensive multifocal consolidation and groundglass opacities within the lungs since chest CT of June 29, 2021. This is consistent with viral pneumonia. 3. Dilatation of the central pulmonary arteries which raises the possibility of pulmonary arterial hypertension. 4. Cardiomegaly. ACT 112: Negative or not required by law. Electronically signed by: Darrel Au M.D. 07/06/2021 6:55 AM I & O Totals 24 Hours 07/05/21 07/06/21 07/07/21 06:59 06:59 06:59 Intake Total 1946.212 / 6140.129 8937.862 / 2602.862 629.308 / 629.308 Output Total 1775 / 1775 2725 / 2725 950 / 950 Balance 171.212 / 171.212 -122.138 / -122.138 -320.692 / -320.692 Cumulative 06/29/21 12:00 thru 07/06/21 14:28 Intake Total 9314.799 Output Total 80038 Balance -6036.201 RT Ventilator Mngmt (Last Documented) Ventilator Ordered Settings Ventilator Support Mode Assist Control 07/06/21 12:00 Respiratory Rate 20 07/06/21 11:19 Ventilator Tidal Volume 380 07/06/21 12:00 Setting Minute Ventilation 7.8 07/06/21 11:19 Positive End Expiratory 12 07/06/21 12:00 Pressure Fraction of Inspired Oxygen 100 07/06/21 12:00 Machine Comment FiO2 increased due to desat to 88 07/05/21 22:30 %. Ventilator - PT Measurements Respiratory Rate 20 Exhaled Tidal Volume 380 Minute Ventilation 7.8 Peak Inspiratory Airway 31 Pressure Plateau Pressure 29 Respiratory Cycle Inspiratory: 1:2.3 Expiratory Ratio Inspiratory Phase Time 0.9 End-Tidal CO2 37 Static Lung Compliance 22.35 Dynamic Lung Compliance 20.00 Normal Static Lung Compliance 45.00 Patient Measurements Comment ETCO2 off Dr. Vieyra contacted for ABG post-intubation by RT, no response Coding Level of Care Code Critical Care 1st 30-74 mins Diagnoses Stress-induced cardiomyopathy I51.81 Rapid atrial fibrillation I48.91 VIKKI (obstructive sleep apnea) G47.33 COVID-19 U07.1 Acute respiratory failure with hypoxia and hypercapnia J96.01; J96.02 Pneumonia due to COVID-19 virus U07.1; J12.82 Morbid obesity with BMI of 50.0-59.9, adult E66.01; Z68.43
[2021-07-06] MEDS ORDERED: VECURONIUM BROMIDE 10 MG in 0.9 % SODIUM CHLORIDE 90 ML IV SCH (16:30)
[2021-07-06] MEDS ORDERED: [UNRECOGNIZED DRUG - REMARK] IV ONE (16:45)
[2021-07-06] MEDS: ARTIFICIAL TEARS OP OINT 3.5 GM TUBE OP SCH ×2 (18:25→20:02)
[2021-07-06] MEDS: VECURONIUM BROMIDE IV SCH (19:50)
[2021-07-06] MEDS: SODIUM CHLORIDE 0.9% IV SCH (19:50)
[2021-07-06] MEDS: ENOXAPARIN INJ 60 MG/0.6 ML SYR SQ SCH (19:53)
[2021-07-06] MEDS: fentaNYL citrate 2,500 MCG/250 ML BAG IV SCH (22:23)
[2021-07-07] MEDS: propofoL 1,000 MG/100 ML VIAL IV SCH ×10 (01:17→23:44)
[2021-07-07] MEDS: ARTIFICIAL TEARS OP OINT 3.5 GM TUBE OP SCH ×6 (01:19→21:08)
[2021-07-07] MEDS: INSULIN ASPART 100 UNITS/ML 3 ML PEN SC SCH ×5 (04:04→21:15)
--- NOTE | 2021-07-07 05:27 | Electrocardiogram Report ---
Test Reason : Blood Pressure : / mmHG Vent. Rate : 140 BPM Atrial Rate : 288 BPM P-R Int : 000 ms QRS Dur : 086 ms QT Int : 304 ms P-R-T Axes : 000 -16 -43 degrees QTc Int : 464 ms Atrial fibrillation with rapid ventricular response ST elevation consider lateral injury or acute infarct ACUTE PR / STEMI Abnormal ECG When compared with ECG of 04-JUL-2021 13:12, ST elevation now present in Lateral leads ST now depressed in inferior and anterior leads Confirmed by Roe Christie ([id number]) on 07/07/2021 5:27:08 AM Referred By: REFERRED SELF Confirmed By:Roe Christie
[2021-07-07 05:42] LABS: iSTAT Allen Test Pass; iSTAT Art Bld Gas pCO2 Correct 54 mmHg (35-46); iSTAT Art Bld Gas pH Corrected 7.401 (7.35-7.45); iSTAT Arterial Blood Gas HCO3 34 meg/L (19-24); iSTAT Arterial Blood Gas pCO2 56 mmHg (35-46); iSTAT Arterial Blood Gas pH 7.39 (7.35-7.45); iSTAT Arterial Blood Gas pO2 63 mmHg (80-95); iSTAT Arterial Blood Gas pO2 C 59; iSTAT Carbon Dioxide 35 mmol/L (24-31); iSTAT FiO2 90 %; iSTAT Hematocrit 37 % (37-47); iSTAT Hemoglobin 12.6 g/dl (12.0-16.0); iSTAT Potassium 3.6 mmol/L (3.3-5.0); iSTAT Site Art Line; iSTAT Sodium 134 mmol/L (135-144)
--- NOTE | 2021-07-07 05:59 | Electrocardiogram Report ---
Test Reason : Blood Pressure : / mmHG Vent. Rate : 049 BPM Atrial Rate : 049 BPM P-R Int : 166 ms QRS Dur : 092 ms QT Int : 528 ms P-R-T Axes : 034 025 067 degrees QTc Int : 476 ms Sinus bradycardia Nonspecific T wave abnormality Prolonged QT Abnormal ECG When compared with ECG of 04-Jul-2021 14:35, Sinus rhythm has replaced Atrial fibrillation Vent. rate has decreased by [address] elevation less evident in Lateral leads ST depression no longer evident in anterior leads ST depression much improved in inferior leads Confirmed by Roe Christie ([id number]) on 07/07/2021 5:58:51 AM Referred By: REFERRED SELF Confirmed By:Roe Christie
[2021-07-07 06:40] LABS: Partial Thromboplastin Ratio 0.9; Partial Thromboplastin Time 23.6 Seconds (21.0-31.0)
[2021-07-07 06:59] LABS: Hematocrit (blood only) 36.8 % (37-47); Hemoglobin 12.5 g/dL (12.0-16.0); Mean Corpuscular Hemoglobin 31.3 pg (25-34); Mean Corpuscular Volume 92.2 fL (80-100); Mean Platelet Volume 10.1 fL (7.4-10.4); Platelet Count 418 K/uL (130-400); RDW Coefficient of Variation 13.3 % (11.5-14.5); RDW Standard Deviation 44.7 fL (36.4-46.3); Red Blood Count 3.99 M/uL (4.2-5.4)
[2021-07-07 07:00] LABS: Immature Granulocytes # (auto) 0.04 K/uL (0.00-0.02); Immature Granulocytes % (auto) 0.6 %; Lymphocytes # (auto) 0.34 K/uL (1.2-3.4); Lymphocytes % (auto) 4.7 %; Monocytes # (auto) 0.81 K/uL (0.11-0.59); Monocytes % (auto) 11.3 %; Neutrophils # (auto) 6.01 K/uL (1.4-6.5); Neutrophils % (auto) 83.4 %; RBC Morphology Unremarkable
[2021-07-07 07:02] LABS: BUN Creatinine Ratio 33.6 (10-20); Calcium 8.3 mg/dl (8.5-10.1); Creatinine Clr Calc Pharmacy 69.8 ml/min; Est GFR (African American) 71.3 ml/min; Est GFR (Non-African American) 61.5 ml/min; Magnesium 2.4 mg/dl (1.8-2.4); Potassium 3.7 mmol/L (3.5-5.1)
[2021-07-07 07:03] LABS: Phosphorus 4.4 mg/dl (2.5-4.9)
[2021-07-07] MEDS: ICU ELECTROLYTE REPLACEMENT PROTOCOL SCH ×2 (07:14→18:23)
[2021-07-07] MEDS: SODIUM CHLORIDE 0.9% IV SCH ×3 (08:43→20:55)
[2021-07-07] MEDS: dexAMETHasone 6 MG in SYRINGE 0 ML IV SCH (08:43)
[2021-07-07] MEDS: VECURONIUM BROMIDE IV SCH ×3 (08:43→20:55)
[2021-07-07] MEDS: PANTOprazole 40 MG in SYRINGE 0 ML IV SCH ×2 (08:43→21:02)
[2021-07-07] MEDS: POTASSIUM CHLORIDE 20 MEQ/15 ML UDC NG SCH ×2 (08:44→10:41)
[2021-07-07] MEDS: POTASSIUM CHLORIDE 20 MEQ/15 ML UDC GT SCH ×2 (08:44→17:50)
[2021-07-07] MEDS: ENOXAPARIN INJ 60 MG/0.6 ML SYR SQ SCH ×2 (08:45→21:03)
[2021-07-07] MEDS: INSULIN GLARGINE SOLOSTAR 100 UNITS/ML 3 ML PEN SC SCH (08:47)
[2021-07-07] MEDS: INSULIN HUMAN NPH SC SCH (08:50)
[2021-07-07] MEDS: ROSUVASTATIN CALCIUM 10 MG TAB PO SCH (08:50)
[2021-07-07] MEDS: FUROSEMIDE 40 MG/4 ML VIAL IV SCH ×2 (08:55→21:15)
--- NOTE | 2021-07-07 09:00 | Critical Care Progress Note ---
Date of Service July 07, 2021 Assessment & Plan (1) Stress-induced cardiomyopathy: (2) Rapid atrial fibrillation: (3) VIKKI (obstructive sleep apnea): (4) COVID-19: (5) Acute respiratory failure with hypoxia and hypercapnia: (6) Pneumonia due to COVID-19 virus: (7) Morbid obesity with BMI of 50.0-59.9, adult: Plan: Impression: This is a 70-year-old female that received 1 dose of Pfizer vaccination 06/04/2021. She developed signs of congestion and fever and presented to PCP June 23, 2021 and was started on Augmentin. Over the next several days she worsened and presented the emergency room 06/29/2021 where she reported that she had been found positive for Covid and was feeling worse. She was started on remdesivir, dexamethasone and supplemental oxygen. The next day she was started on baricitinib. Patient was intubated 07/04/21 following which patient had ST elevation and was taken to [facility]. Clean coronaries with possible stress-induced cardiomyopathy. EF was 30% at that time 24-hour events: Remains sedated with propofol, midazolam, fentanyl. Continues on vecuronium. Unable to monitor BIS so following [id number]. High vent requirements. Continues on phenylephrine. Currently proned. Recommendations: 1. Neurologic: Continue sedation as above patient continues to require deep sedation. She also continues to require neuromuscular blockade with vecuronium. Continue Neurontin. Hold pramipexole. 2. Cardiovascular: Decreased ejection fraction with probable Takotsubo cardiomyopathy. Phenylephrine has been continued. Coronaries were clean on cardiac catheterization. Gentle diuresis as tolerated. Atrial fibrillation with rapid ventricular response. Now off amiodarone and in sinus rhythm. Additional management per cardiology. Last BMP was 1112 on 07/02/2021. Continue negative balance fluid status. 3. Pulmonary: CT angiogram showed diffuse groundglass opacities with no evidence of pulmonary embolism or vascular filling defects. Discontinued Singulair. 4. GI: Currently no tube feeds as patient is prone and on neuromuscular blockade. Continue to evaluate appropriateness for feeding. 5. Renal: Acid-base status and electrolytes are stable. Discontinued Myrbetriq 6. Endocrine: Glycemic control per protocol. 7. Heme-onc: No active issues. DVT prophylaxis with enoxaparin 60 mg subcutaneously every 12 hours. 8. ID: White count normal. No fever. Procalcitonin 0.07 on 07/02. Blood cultures are negative x2. We will check sputum culture with suction per respiratory therapy --Prophylaxis VTE: Heparin drip discontinued. Continue with enoxaparin 60 mg subcutaneously twice daily GI: Pantoprazole 40 mg twice daily via OG tube Lines: Right IJ, left radial, positive [place] Diet: Tube feeds on hold secondary to patient being proned and with neuromuscular blockade with vecuronium I have personally spent 35 minutes of critical care time in the direct management of this patient. This is a life/limb threatening event. This includes time spent evaluating patient, direct bedside care, chart review, placing orders, interpretation of diagnostic studies, discussion with consultants, patient, and family members, as well as other required patient management activities. This time is exclusive of all separately billable procedures, and teaching time and separate from and in addition to any other critical care service time. Please note the above document was generated using voice recognition software. It may contain grammatical, syntax or spelling errors. Admission and Anticipated Discharge Date Admission Date: June 29, 2021 Supervising Physician Co-Signing Physician Notes Patient seen and examined. EMR reviewed. Discussed on multidisciplinary rounds. Agree with assessment plan as noted by NEVA. Patient proned. CT angiogram performed with no evidence of acute PE. Unclear the significance of potential chronic filling defects although these may be artifactual. She was transitioned off heparin to Lovenox. Oxygen saturations improved with proning. Will flip her back supine around 1500 today and see how she does. Prognosis remains guarded. Subjective Attending: Dr. Cooper Patient seen and examined in the Covid unit in room 203. She continues to be intubated and mechanically ventilated. She is currently proned. ET tube is checked and secure. All lines is secure. Patient has some diminished breath sounds and some crackles at the bases. No appreciation of bronchospasm. Patient has been afebrile. Patient continues on phenylephrine. Patient also continues on midazolam and fentanyl drips. Propofol also continues and is being titrated. Patient continues to be paralyzed with vecuronium. Unable to adequately get BIS monitoring. Continues with [id number] monitoring. Review of Systems Review of Systems: Unobtainable due to endotracheal tube Physical Exam Physical Exam: GENERAL : No acute distress. Patient is currently paralyzed with vecuronium and sedated with propofol, midazolam, fentanyl. She is currently prone. Endotracheal tube was checked and secure. All lines checked and secure as well. EYES: Pupils appear round and equal NOSE: No evidence of epistaxis MOUTH: Endotracheal tube and orogastric tube are secure. No evidence of bleeding around the mouth or lips. NECK: Supple LUNGS: Diminished breath sounds throughout. HEART: Regular, rate controlled in the mid 50s. ABDOMEN: Belly is protuberant. It appears to be soft. Patient is currently proned due to COVID-19. Unable to adequately check for palpation secondary to patient's obesity. Unable to do visual examination of the abdomen. EXTREMITIES: No LE edema, pedal pulses intact and equal bilaterally NEURO: Patient currently on a vecuronium drip. She is also sedated with midazolam and fentanyl. She also has propofol for sedation. Pupils are round and equal. [id number] intact. Results & Data Results & Data ([facility]) Vital Signs (Past 12 Hours) Vital Signs Temp Pulse Resp BP Pulse Ox 07/07/21 07:47 55 L 20 94 07/07/21 07:00 36.4 C L 55 L 20 94 07/07/21 06:30 36.4 C L 56 L 20 94 07/07/21 06:00 36.4 C L 57 L 20 114/65 94 07/07/21 05:30 36.3 C L 56 L 20 94 07/07/21 05:00 36.2 C L 58 L 20 114/65 94 07/07/21 04:30 36.0 C L 57 L 20 94 07/07/21 04:00 35.8 C L 59 L 20 108/64 94 07/07/21 03:30 35.5 C L 68 20 93 07/07/21 03:27 68 20 93 07/07/21 03:00 35.2 C L 62 20 92/54 L 95 07/07/21 02:30 35.0 C L 59 L 20 95 07/07/21 02:00 34.9 C L 58 L 20 92/52 L 96 07/07/21 01:30 34.8 C L 56 L 20 95 07/07/21 01:00 34.8 C L 49 L 20 104/60 97 07/07/21 00:30 35 C L 48 L 20 95 07/07/21 00:00 35.5 C L 46 L 20 121/78 96 07/06/21 23:30 35.5 C L 53 L 20 91 07/06/21 23:16 45 L 20 93 07/06/21 23:00 35.6 C L 45 L 20 154/84 H 93 07/06/21 22:30 35.6 C L 52 L 20 94 07/06/21 22:00 36 C L 49 L 20 120/74 93 07/06/21 21:30 36 C L 47 L 20 92 07/06/21 21:00 35.9 C L 45 L 20 143/90 H 90 Laboratory Results 07/07/21 06:07 07/07/21 06:07 Arterial blood gas 07/06/2021 at 05:04 pH 7.38, PCO2 55, PaO2 65, HCO3 33, base excess 8, SaO2 92% Arterial blood gas 07/07/2021 at 04:55 pH 7.39, PCO2 56, PaO2 63, HCO3 34, base excess 9.0 SaO2 91% Diagnostic Findings CT ANGIOGRAPHY OF THE CHEST, PULMONARY EMBOLUS PROTOCOL CLINICAL HISTORY: Hypoxia. Covid. COMPARISON STUDY: Chest CT June 29, 2021 chest radiograph performed earlier today. TECHNIQUE: Following IV administration of 118 mL of Optiray, helical axial images of the chest were obtained utilizing the pulmonary embolus protocol. Maximal intensity projections and sagittal and coronal reformats were viewed on an independent 3D workstation. IV contrast was administered without complication. Automated exposure control was utilized for the study. A dose lowering technique was utilized adhering to the principles of ALARA. CT DOSE: 735.95 mGycm FINDINGS: There is dilatation of the central pulmonary arteries. The main pulmonary artery measures 3.9 cm in caliber. No central pulmonary emboli are identified. Evaluation of the segmental and subsegmental pulmonary arteries is suboptimal given respiratory motion artifact. There are several apparent linear filling defects within segmental right lower lobe pulmonary arteries. Comparison with prior exam is difficult given motion artifact on that exam. Cardiomegaly is noted. There is no pericardial effusion. No enlarged thoracic lymph nodes are noted. Extensive multifocal consolidation and groundglass opacities are noted within the lungs. Findings have progressed since CT of June 29, 2021. Central airways are patent. Tip of nasogastric tube is within the body of the stomach. Endotracheal tube is satisfactorily positioned. IMPRESSION: 1. No central pulmonary emboli. Exam compromised by motion artifact however linear filling defects within segmental right lower lobe pulmonary arteries suggest chronic pulmonary emboli. Comparison with prior exam difficult given motion artifact on that exam. This finding will be called/faxed to the ordering provider at time of dictation. 2. Progression of extensive multifocal consolidation and groundglass opacities within the lungs since chest CT of June 29, 2021. This is consistent with viral pneumonia. 3. Dilatation of the central pulmonary arteries which raises the possibility of pulmonary arterial hypertension. 4. Cardiomegaly. ACT 112: Negative or not required by law. Electronically signed by: Darrel Au M.D. 07/06/2021 6:55 AM Coding Level of Care Code Critical Care 1st 30-74 mins Diagnoses Stress-induced cardiomyopathy I51.81 Rapid atrial fibrillation I48.91 VIKKI (obstructive sleep apnea) G47.33 COVID-19 U07.1 Acute respiratory failure with hypoxia and hypercapnia J96.01; J96.02 Pneumonia due to COVID-19 virus U07.1; J12.82 Morbid obesity with BMI of 50.0-59.9, adult E66.01; Z68.43 Time Spent (min) 35
[2021-07-07] MEDS: PHENYLEPHRINE HCL 80 MG in DEXTROSE 5% 500 ML IV SCH (09:53)
[2021-07-07] MEDS: GABAPENTIN 250 MG/5 ML 470 ML BTL PO SCH ×2 (10:40→21:15)
--- NOTE | 2021-07-07 11:00 | Critical Care Progress Note ---
Date of Service July 07, 2021 Assessment & Plan Admission and Anticipated Discharge Date Admission Date: June 29, 2021 Subjective 06/29/21 06/30/21 07/02/21 13:05 03:22 17:36 POC pCO2 47 H POC pO2 74 L VBG pH 7.38 7.42 H VBG pCO2 51 H 51 H VBG pO2 22 63 VBG HCO3 29 32 VBG O2 Saturation < 60.0 93.0 VBG Base Excess 3.0 6.0 07/05/21 07/06/21 07/07/21 03:52 05:04 04:55 POC pCO2 38 55 H 56 H POC pO2 63 L 65 L 63 L VBG pH VBG pCO2 VBG pO2 VBG HCO3 VBG O2 Saturation VBG Base Excess Results & Data Results & Data ([facility]) Vital Signs (Past 12 Hours) Vital Signs Temp Pulse Resp BP Pulse Ox 07/07/21 09:00 36.5 C 60 20 91 07/07/21 08:30 36.5 C 55 L 20 92 07/07/21 08:00 36.5 C 55 L 20 92 07/07/21 07:47 55 L 20 94 07/07/21 07:30 36.4 C L 56 L 20 95 07/07/21 07:00 36.4 C L 55 L 20 94 07/07/21 06:30 36.4 C L 56 L 20 94 07/07/21 06:00 36.4 C L 57 L 20 114/65 94 07/07/21 05:30 36.3 C L 56 L 20 94 07/07/21 05:00 36.2 C L 58 L 20 114/65 94 07/07/21 04:30 36.0 C L 57 L 20 94 07/07/21 04:00 35.8 C L 59 L 20 108/64 94 07/07/21 03:30 35.5 C L 68 20 93 07/07/21 03:27 68 20 93 07/07/21 03:00 35.2 C L 62 20 92/54 L 95 07/07/21 02:30 35.0 C L 59 L 20 95 07/07/21 02:00 34.9 C L 58 L 20 92/52 L 96 07/07/21 01:30 34.8 C L 56 L 20 95 07/07/21 01:00 34.8 C L 49 L 20 104/60 97 07/07/21 00:30 35 C L 48 L 20 95 07/07/21 00:00 35.5 C L 46 L 20 121/78 96 07/06/21 23:30 35.5 C L 53 L 20 91 07/06/21 23:16 45 L 20 93 07/06/21 23:00 35.6 C L 45 L 20 154/84 H 93 Coding
[2021-07-07] MEDS: fentaNYL citrate 2,500 MCG/250 ML BAG IV SCH (13:53)
--- NOTE | 2021-07-07 15:20 | Procedure Note ---
Procedure Note Date of Service July 07, 2021 Note Presented at bedside to assist with transitioning the patient from prone positioning to supine positioning. Nursing and respiratory therapy were in attendance. After adequate personnel was present, timeout was briefly performed. All monitoring and drains were placed in a safe position. Under the direction of respiratory therapy, the patient was transitioned from the prone to the supine position. She was on her percent FiO2. She tolerated the procedure well with transient decrease in blood pressure which necessitated increasing her vasopressor agents. Of note prior to reverting to the supine position, the patient was on 90% FiO2. Unclear if proning is offering her a clinical benefit at this time. Coding
[2021-07-07] MEDS ORDERED: PROPOFOL BOLUS FROM BAG IV PRN (18:09)
[2021-07-07] MEDS ORDERED: STAT IV Infusion **Titration per Protocol STA (18:09)
--- NOTE | 2021-07-07 21:07 | Hospitalist Progress Note ---
Date of Service July 07, 2021 Assessment & Plan (1) Acute respiratory failure with hypoxia and hypercapnia: Plan: 2nd to severe COVID-19 pneumonia and acute CHF/stress-induced cardiomyopathy. s/p intubation 07/04/21. remains intubated and ventilated today, she is paralyzed and placed in prone position CTA negative for PE Dr. Cooper managing (2) Pneumonia due to COVID-19 virus: Plan: severe, with resulting acute hypoxic/hypercapneic respiratory failure and ARDS. progressive disease since admission with ultimate maxed out settings on HFNC and 100% FIO2 requirements on 07/04. s/p intubation with mech ventilation 07/04. Had received 5 days of baricitinib - now d/c due to vent status. Cont dexamethasone 6mg IV daily; day #9 Completed 5-day course of Remdesivir. Acute systolic/diastolic CHF - cont to diurese. No evidence of bacterial superinfection. (3) Stress-induced cardiomyopathy: Plan: s/p heart alert with emergent cath by Dr Brown on 07/04 due to suspected STEMI. Developed ST segment elevations shortly after intubation. Cath - normal coronaries, global hypokinesis - EF 30%. EF was normal just a few days prior. Takotsubo's. This was the cause of her abnormal EKG and ST segment elevations pre-cath. Continue diuresis. Will ultimately need beta kelvin. Repeat echo this admission. Appreciate Dr Brown and his assistance. requiring Phenylephrine today (4) Rapid atrial fibrillation: Plan: 07/04 AM -- initially on cardizem infusion which was subsequently stopped prior to intubation & her heart alert. Ultimately underwent synchronized cardioversion which was not successful. She was loaded with amiodarone bolus, then amiodarone infusion. Converted back to NSR late 07/04. Amiodarone drip now off. Will remain on heparin drip. repeat CTA chest on 07/06 was negative for PE, only showed progression of ground glass opacities TSH noted to be slightly depressed and FT4 slightly high - simply repeat these in a few weeks. This is not c/w significant hyperthyroidism leading to a.fib. (5) Acute systolic CHF (congestive heart failure): Plan: echo earlier on admissio with preserved EF but IVC dilated. had been receiving once daily IV lasix. heart alert 07/04 - stress-induced cardiomyopathy with EF 30% based on cath showing normal coronaries. cont diuresis. will ultimately need BB if BP can tolerate. (6) Hypomagnesemia: Plan: replaced/resolved (7) COPD (chronic obstructive pulmonary disease): Plan: cont steroids/bronchodilators (8) Foot drop, bilateral: Plan: from lumbar radiculopathy - wears braces chronically at home (9) Hyperlipidemia: Plan: statin no CAD on cath (10) HTN (hypertension): Plan: now on pressors for BP support (11) Chronic radicular lumbar pain: Plan: Continue gabapentin baclofen and tramadol on hold (12) Restless leg syndrome: Plan: Cont pramipexole (13) Urinary Incontinence: Plan: goodwin (14) GERD (gastroesophageal reflux disease): Plan: Continue IV PPI twice daily (15) DMII (diabetes mellitus, type 2): Plan: ICU protocol (16) Morbid obesity with BMI of 50.0-59.9, adult: Plan: BMI 51 (17) Hydroureteronephrosis: Plan: b/l, as seen on CT nothing to do at this time 2nd to urinary reflux disease?? this is a risk factor for recurrent UTI, CKD, etc after recovering from COVID -- send to urology as outpatient (18) Enteritis: Plan: as seen on admission CT 2nd to COVID-19 infection no further diarrhea resolved (19) VIKKI (obstructive sleep apnea): Plan: now vented (20) DVT prophylaxis: Plan: Lovenox 60 q12 (21) Rhabdomyolysis due to COVID-19: Plan: resolved; most recent CPK wnl Plan: contact is the patient's son for any type of procedure Dr. Cooper managing patient Admission and Anticipated Discharge Date Admission Date: June 29, 2021 Subjective patient placed in prone position today d/w RN as well as ICU staff reviewed labs Review of Systems Review of Systems: Unobtainable due to endotracheal tube and Unobtainable due to reduced consciousness Physical Exam Physical Exam: General: well developed, obese, sedated, mechanical ventilation, prone position Neck: supple, trachea midline, normal thyroid Lungs: symmetric chest movement, on ventilator Heart: regular S1 and S2, no murmur, peripheral pulses normal, capillary refill normal, no edema Abdomen: cannot examine in prone position Extremities: normal in appearance, no cyanosis, no petechiae, strength is 5/5 bilaterally Neuro: sedated, CN II-XII intact, no focal deficits Skin: warm, dry, no rash, normal turgor Psych: sedated Results & Data Results & Data ([facility]) Vital Signs (Past 12 Hours) Vital Signs Temp Pulse Resp Pulse Ox 07/07/21 16:00 46 L 20 92 07/07/21 15:30 45 L 20 91 07/07/21 15:00 36.7 C 20 90 07/07/21 14:55 51 L 20 90 07/07/21 14:30 36.7 C 51 L 20 91 07/07/21 14:00 36.6 C 51 L 20 91 07/07/21 13:30 36.6 C 59 L 20 92 07/07/21 13:00 36.5 C 58 L 20 91 07/07/21 12:30 36.5 C 57 L 20 91 07/07/21 12:00 36.5 C 57 L 20 90 07/07/21 11:30 36.5 C 58 L 20 89 L 07/07/21 11:10 58 L 20 90 07/07/21 11:00 36.5 C 52 L 20 92 07/07/21 10:30 36.4 C L 55 L 20 91 07/07/21 10:00 36.4 C L 55 L 20 92 07/07/21 09:30 36.4 C L 58 L 20 91 Laboratory Results Laboratory Results - last 24 hr 07/06/21 07/06/21 07/07/21 20:23 23:46 04:00 WBC RBC Hgb POC Hgb Hct POC Hct MCV MCH MCHC RDW Std Deviation RDW Coeff of Shant Plt Count MPV Immature Gran % (Auto) Neut % (Auto) Lymph % (Auto) Wilson % (Auto) Eos % (Auto) Baso % (Auto) Neut # (Auto) Lymph # (Auto) Wilson # (Auto) Eos # (Auto) Baso # (Auto) Immature Gran # (Auto) RBC Morphology APTT PTT Ratio Sample Site POC pH POC pCO2 POC pO2 POC HCO3 POC Total CO2 POC Base Excess ABG pH (Temp Correct) ABG pCO2 (Temp Corrct POC ABG pO2 at Pt Temp POC ABG O2 Sat Claude Test O2 Delivery Device POC O2 Rate POC FiO2 Tidal Volume PEEP POC Sodium Sodium POC Potassium Potassium Chloride Carbon Dioxide Anion Gap BUN Creatinine Est Cr Clr Drug Dosing Est GFR ( Amer) Est GFR (Non-Af Amer) BUN/Creatinine Ratio Glucose POC Glucose (other) 183 H 170 H 153 H Calcium Phosphorus Magnesium 07/07/21 07/07/21 07/07/21 04:55 06:07 06:07 WBC 7.20 RBC 3.99 L Hgb 12.5 POC Hgb 12.6 Hct 36.8 L POC Hct 37 MCV 92.2 MCH 31.3 MCHC 34.0 RDW Std Deviation 44.7 RDW Coeff of Shant 13.3 Plt Count 418 H D MPV 10.1 Immature Gran % (Auto) 0.6 Neut % (Auto) 83.4 Lymph % (Auto) 4.7 Wilson % (Auto) 11.3 Eos % (Auto) 0.0 Baso % (Auto) 0.0 Neut # (Auto) 6.01 Lymph # (Auto) 0.34 L Wilson # (Auto) 0.81 H Eos # (Auto) 0.00 Baso # (Auto) 0.00 Immature Gran # (Auto) 0.04 H RBC Morphology Unremarkable APTT PTT Ratio Sample Site Art Line POC pH 7.39 POC pCO2 56 H POC pO2 63 L POC HCO3 34 H POC Total CO2 35 H POC Base Excess 9.0 H ABG pH (Temp Correct) 7.401 ABG pCO2 (Temp Corrct 54 H POC ABG pO2 at Pt Temp 59 POC ABG O2 Sat 91.0 Claude Test Pass O2 Delivery Device Ventilator POC O2 Rate 20 POC FiO2 90 Tidal Volume 380 PEEP 12 POC Sodium 134 L Sodium 135 L D POC Potassium 3.6 Potassium 3.7 Chloride 94 L Carbon Dioxide 30 Anion Gap 10.0 BUN 32 H Creatinine 0.95 Est Cr Clr Drug Dosing 69.8 Est GFR ( Amer) 71.3 Est GFR (Non-Af Amer) 61.5 BUN/Creatinine Ratio 33.6 H Glucose 146 H POC Glucose (other) Calcium 8.3 L Phosphorus 4.4 Magnesium 2.4 07/07/21 07/07/21 07/07/21 06:07 08:44 12:19 WBC RBC Hgb POC Hgb Hct POC Hct MCV MCH MCHC RDW Std Deviation RDW Coeff of Shant Plt Count MPV Immature Gran % (Auto) Neut % (Auto) Lymph % (Auto) Wilson % (Auto) Eos % (Auto) Baso % (Auto) Neut # (Auto) Lymph # (Auto) Wilson # (Auto) Eos # (Auto) Baso # (Auto) Immature Gran # (Auto) RBC Morphology APTT 23.6 PTT Ratio 0.9 Sample Site POC pH POC pCO2 POC pO2 POC HCO3 POC Total CO2 POC Base Excess ABG pH (Temp Correct) ABG pCO2 (Temp Corrct POC ABG pO2 at Pt Temp POC ABG O2 Sat Claude Test O2 Delivery Device POC O2 Rate POC FiO2 Tidal Volume PEEP POC Sodium Sodium POC Potassium Potassium Chloride Carbon Dioxide Anion Gap BUN Creatinine Est Cr Clr Drug Dosing Est GFR ( Amer) Est GFR (Non-Af Amer) BUN/Creatinine Ratio Glucose POC Glucose (other) 148 H 164 H Calcium Phosphorus Magnesium 07/07/21 16:06 WBC RBC Hgb POC Hgb Hct POC Hct MCV MCH MCHC RDW Std Deviation RDW Coeff of Shant Plt Count MPV Immature Gran % (Auto) Neut % (Auto) Lymph % (Auto) Wilson % (Auto) Eos % (Auto) Baso % (Auto) Neut # (Auto) Lymph # (Auto) Wilson # (Auto) Eos # (Auto) Baso # (Auto) Immature Gran # (Auto) RBC Morphology APTT PTT Ratio Sample Site POC pH POC pCO2 POC pO2 POC HCO3 POC Total CO2 POC Base Excess ABG pH (Temp Correct) ABG pCO2 (Temp Corrct POC ABG pO2 at Pt Temp POC ABG O2 Sat Claude Test O2 Delivery Device POC O2 Rate POC FiO2 Tidal Volume PEEP POC Sodium Sodium POC Potassium Potassium Chloride Carbon Dioxide Anion Gap BUN Creatinine Est Cr Clr Drug Dosing Est GFR ( Amer) Est GFR (Non-Af Amer) BUN/Creatinine Ratio Glucose POC Glucose (other) 168 H Calcium Phosphorus Magnesium Medications Administered Current Inpatient Medications Acetaminophen (Acetaminophen 325 Mg Tab) 650 mg PO Q4H PRN PRN Reason: Pain or Fever Stop: 07/29/21 23:07 Last Admin: 07/01/21 08:36 Dose: 650 mg Documented by: Albuterol (Albuterol 0.083% Nebu Soln 3 Ml Vial) 2.5 mg NEB Q4 PRN PRN Reason: shortness of breath Stop: 07/29/21 23:07 Dextrose (Dextrose 50% 50 Ml Syringe) 25 - 50 ml IV UD PRN; Protocol PRN Reason: Hypoglycemia Protocol Stop: 07/29/21 23:07 Enoxaparin Sodium (Enoxaparin Inj 60 Mg/0.6 Ml Syr) 60 mg SQ Q12 DEDE Stop: 08/05/21 20:59 Last Admin: 07/07/21 08:45 Dose: 60 mg Documented by: Fentanyl Citrate (Fentanyl Bolus From Bag) 50 mcg IV Q1H PRN PRN Reason: Pain or Agitation Stop: 07/18/21 16:20 Fluticasone Propionate (Fluticasone Propionate Na Spr 16 Gm Btl) 2 sprays FRANCISCO DAILY PRN PRN Reason: NASALL CONGESTION Stop: 07/29/21 23:07 Last Admin: 07/02/21 21:38 Dose: 2 sprays Documented by: Furosemide (Furosemide 40 Mg/4 Ml Vial) 40 mg IV BID DEDE Stop: 08/05/21 08:59 Last Admin: 07/07/21 08:55 Dose: 40 mg Documented by: Gabapentin (Gabapentin 250 Mg/5 Ml 470 Ml Btl) 300 mg PO BID DEDE Stop: 08/03/21 20:59 Last Admin: 07/07/21 10:40 Dose: 300 mg Documented by: Glucagon (Glucagon For Inj 1 Mg Vial) 1 mg SQ UD PRN; Protocol PRN Reason: Hypoglycemia Protocol Stop: 07/29/21 23:07 Glucose (Glucose 10 Tabs/Tube) 4 - 8 tabs PO UD PRN; Protocol PRN Reason: Hypoglycemia Protocol Stop: 07/29/21 23:07 Glucose (Glucose 40% Gel 15 Gm Tube) 15 - 30 gm PO UD PRN; Protocol PRN Reason: Hypoglycemia Protocol Stop: 07/29/21 23:07 Dexamethasone 6 mg/ Syringe 1.5 mls @ 1 mls/min IV DAILY DEDE Stop: 07/30/21 08:59 Last Admin: 07/07/21 08:43 Dose: 1 mls/min Documented by: Pantoprazole Sodium 40 mg/ (Syringe) 10 mls @ 5 mls/min IV BID DEDE Stop: 08/03/21 20:59 Last Admin: 07/07/21 08:43 Dose: 5 mls/min Documented by: Phenylephrine HCl 80 mg/ (Dextrose) 508 mls @ 9.754 mls/hr IV .Q24H DEDE; Protocol Stop: 08/04/21 00:00 Last Titration: 07/07/21 19:17 Dose: 0.2 mcg/kg/min, 9.8 mls/hr Documented by: Midazolam HCl (Versed) 125 mg in 250 mls @ 2 mls/hr IV .Q96H DEDE; Protocol Stop: 08/05/21 12:59 Last Titration: 07/07/21 19:17 Dose: 1 mg/hr, 2 mls/hr Documented by: Fentanyl Citrate (Fentanyl Citrate) 2,500 mcg in 250 mls @ 15 mls/hr IV .[id number] DEDE; Protocol Stop: 07/20/21 19:59 Last Titration: 07/07/21 19:17 Dose: 150 mcg/hr, 15 mls/hr Documented by: Vecuronium Rosie 25 mg/ (Sodium Chloride) 250 mls @ 24 mls/hr IV .[id number] DEDE; Protocol Stop: 08/05/21 18:59 Last Titration: 07/07/21 19:17 Dose: 0.8 mcg/kg/min, 24 mls/hr Documented by: Propofol (Diprivan) 1,000 mg in 100 mls @ 14.4 mls/hr IV .Q6H57M DEDE; Protocol Stop: 07/10/21 18:14 Last Titration: 07/07/21 19:17 Dose: 50 mcg/kg/min, 36 mls/hr Documented by: Insulin Aspart (Insulin Aspart 100 Units/Ml 3 Ml Pen) 0 units SC Q4 DEDE Stop: 07/29/21 23:07 Last Admin: 07/07/21 16:08 Dose: 3 units Documented by: Insulin Glargine (Insulin Glargine Solostar 100 Units/Ml 3 Ml Pen) 25 units SC QAM [facility]; Protocol Stop: 08/04/21 14:59 Last Admin: 07/07/21 08:47 Dose: 25 units Documented by: Insulin Human NPH (Insulin Human Nph) 60 units SC DAILY DEDE; Protocol Stop: 08/05/21 08:59 Last Admin: 07/07/21 08:50 Dose: 60 units Documented by: Miconazole Nitrate (Miconazole Nitrate Powder 43 Gm) 1 appln EXT PRN PRN PRN Reason: Affected Skin Folds Stop: 08/02/21 12:09 Midazolam HCl (Midazolam Bolus From Bag) 2 mg IV Q60M PRN PRN Reason: Sedation Stop: 08/05/21 12:48 Miscellaneous (Carbohydrates For Hypoglycemia ) 15 - 30 gm PO UD PRN PRN Reason: Hypoglycemia Protocol Stop: 07/29/21 23:07 Miscellaneous (Icu Electrolyte Replacement Protocol) 1 ea N/A BID@06,18 DEDE; Protocol Stop: 07/12/21 05:59 Last Admin: 07/07/21 18:23 Dose: Not Given Documented by: Miscellaneous Information (Pharmacy Glycemic Mgmt Consult) 1 ea N/A UD PRN PRN Reason: Consult Stop: 08/03/21 22:01 Morphine Sulfate (Morphine Sulfate 2 Mg/Ml Carp) 2 mg IV Q4H PRN PRN Reason: Pain/respiratory distress Stop: 07/14/21 02:52 Last Admin: 07/03/21 21:38 Dose: 2 mg Documented by: Multi-Ingredient Cream (Artificial Tears Op Oint 3.5 Gm Tube) 1 appln OP Q4H [facility] Stop: 08/05/21 16:29 Last Admin: 07/07/21 18:23 Dose: 1 appln Documented by: Polyethylene Glycol (Polyethylene (Miralax) 17 Gm Pack) 17 gm PO DAILY PRN PRN Reason: Constipation Stop: 07/29/21 23:07 Potassium Chloride (Potassium Chloride 20 Meq/15 Ml Udc) 10 meq GT BIDM [facility] Stop: 08/04/21 11:59 Last Admin: 07/07/21 17:50 Dose: 10 meq Documented by: Propofol (Propofol Bolus From Bag) 20 mg IV Q5M PRN PRN Reason: Sedation Stop: 07/09/21 07:05 Propofol (Propofol Bolus From Bag) 20 mg IV Q5M PRN PRN Reason: Sedation Stop: 07/10/21 18:08 Rosuvastatin Calcium (Rosuvastatin Calcium 10 Mg Tab) 10 mg PO QAM [facility] Stop: 07/30/21 08:59 Last Admin: 07/07/21 08:50 Dose: 10 mg Documented by: PG Care Time/CCT Total # of Minutes Spent Total Time Spent with Patient: Total time spent is greater than 50% in coordination of care (as documented) at patient's floor/unit and/or counseling patient: Coding Level of Care Code 64953 Subseq Hosp Care Lvl 2 Diagnoses Acute respiratory failure with hypoxia and hypercapnia J96.01; J96.02 Pneumonia due to COVID-19 virus U07.1; J12.82 Stress-induced cardiomyopathy I51.81 Rapid atrial fibrillation I48.91 Acute systolic CHF (congestive heart failure) I50.21 Hypomagnesemia E83.42 COPD (chronic obstructive pulmonary disease) J44.9 Foot drop, bilateral M21.371; M21.372 Hyperlipidemia E78.5 HTN (hypertension) I10 Chronic radicular lumbar pain M54.16; G89.29 Restless leg syndrome G25.81 Urinary Incontinence R32 GERD (gastroesophageal reflux disease) K21.9 DMII (diabetes mellitus, type 2) E11.9 Morbid obesity with BMI of 50.0-59.9, adult E66.01; Z68.43 Hydroureteronephrosis N13.30 Enteritis K52.9 VIKKI (obstructive sleep apnea) G47.33 DVT prophylaxis Z29.9 Rhabdomyolysis due to COVID-19 U07.1; M62.82
[2021-07-08] MEDS: INSULIN ASPART 100 UNITS/ML 3 ML PEN SC SCH ×6 (01:00→20:11)
[2021-07-08] MEDS: ARTIFICIAL TEARS OP OINT 3.5 GM TUBE OP SCH ×6 (01:06→21:15)
[2021-07-08] MEDS: propofoL 1,000 MG/100 ML VIAL IV SCH ×2 (03:28→08:36)
[2021-07-08 05:39] LABS: iSTAT Arterial Blood Gas HCO3 36 meg/L (19-24); iSTAT Arterial Blood Gas pCO2 49 mmHg (35-46); iSTAT Arterial Blood Gas pH 7.48 (7.35-7.45); iSTAT Arterial Blood Gas pO2 54 mmHg (80-95); iSTAT Carbon Dioxide 38 mmol/L (24-31); iSTAT FiO2 70 %; iSTAT Site Art Line
[2021-07-08 07:48] LABS: BUN Creatinine Ratio 36.5 (10-20); Calcium 8.8 mg/dl (8.5-10.1); Creatinine Clr Calc Pharmacy 76.3 ml/min; Est GFR (African American) 79.3 ml/min; Est GFR (Non-African American) 68.5 ml/min; Magnesium 2.2 mg/dl (1.8-2.4); Potassium 3.7 mmol/L (3.5-5.1)
[2021-07-08 07:55] LABS: Partial Thromboplastin Ratio 0.9
[2021-07-08 07:57] LABS: Phosphorus 3.7 mg/dl (2.5-4.9)
[2021-07-08] MEDS: VECURONIUM BROMIDE IV SCH ×2 (08:35→10:02)
[2021-07-08] MEDS: SODIUM CHLORIDE 0.9% IV SCH ×2 (08:35→10:02)
[2021-07-08] MEDS: PHENYLEPHRINE HCL 80 MG in DEXTROSE 5% 500 ML IV SCH (08:39)
[2021-07-08] MEDS: fentaNYL citrate 2,500 MCG/250 ML BAG IV SCH (08:51)
[2021-07-08] MEDS: GABAPENTIN 250 MG/5 ML 470 ML BTL PO SCH ×2 (08:51→21:31)
[2021-07-08] MEDS: INSULIN GLARGINE SOLOSTAR 100 UNITS/ML 3 ML PEN SC SCH (08:52)
[2021-07-08] MEDS: PANTOprazole 40 MG in SYRINGE 0 ML IV SCH ×2 (08:52→21:15)
[2021-07-08] MEDS: INSULIN HUMAN NPH SC SCH (08:52)
[2021-07-08] MEDS: ENOXAPARIN INJ 60 MG/0.6 ML SYR SQ SCH ×2 (08:53→21:13)
[2021-07-08] MEDS: dexAMETHasone 6 MG in SYRINGE 0 ML IV SCH (08:53)
--- NOTE | 2021-07-08 09:50 | XRay Report ---
XR chest 1V portable CLINICAL HISTORY: Respiratory failure. COMPARISON STUDY: Chest radiograph and chest CT July 06, 2021. FINDINGS: Left shoulder arthroplasty is incidentally noted. Right internal jugular central line is in place. Tip of nasogastric tube is within the body of the stomach. Tip of endotracheal tube is 2.1 cm above the lee ann. There is no pneumothorax or pleural effusion. Extensive bilateral airspace opaciti es are similar to prior exam. Cardiomegaly is unchanged. IMPRESSION: 1. Satisfactory positioning of lines and tubes. 2. No significant change in extensive bilateral airspace opacities consistent with viral pneumonia. ACT 112: Negative or not required by law. Electronically signed by: Darrel Au M.D. 07/08/2021 9:49 AM
[2021-07-08] MEDS: ICU ELECTROLYTE REPLACEMENT PROTOCOL SCH ×2 (10:01→17:17)
[2021-07-08] MEDS: POTASSIUM CHLORIDE 20 MEQ/15 ML UDC GT SCH ×2 (11:17→17:17)
[2021-07-08] MEDS: FUROSEMIDE 40 MG/4 ML VIAL IV SCH ×2 (11:18→21:15)
[2021-07-08] MEDS: ROSUVASTATIN CALCIUM 10 MG TAB PO SCH (11:18)
[2021-07-08] MEDS ORDERED: PEPTAMEN INTENSE VHP 1.0 CAL 1,000 ML BAG OG SCH (12:45)
--- NOTE | 2021-07-08 13:54 | Pharmacy Report ---
Pharmacy Glycemic Short Note 2 - Date of Service July 08, 2021 - Glycemic Short BSG Results (Last 24 hours): 07/07/21 07/07/21 07/08/21 16:06 21:13 00:53 Glucose POC Glucose POC Glucose (other) 168 H 174 H 171 H 07/08/21 07/08/21 07/08/21 04:37 06:43 08:15 Glucose 119 H POC Glucose POC Glucose (other) 138 H 120 H 07/08/21 11:48 Glucose POC Glucose 137 H POC Glucose (other) OUTPATIENT ANTIDIABETIC REGIMEN: * None * A1c 6.4% 09/25/20, updated A1c not ordered, as patient has been on high dose IV steroids x 6 days ASSESSMENT: 07/08 * Patient continues to be intubated/sedated, plan to wean paralytics, phenylephrine currently weaned off. * Day #10 of dex 6 mg, discussed with rn dermatology- he will consider late ARDs protocol vs. stopping steroids, will need adjustments to regimen tomorrow morning with steroid changes * BSGS 146-168 mg/dL yesterday, will continue same regimen today, 25 units of lantus/60 units of NPH with dexamethasone. Patient has not required any correctional doses today, [facility] will need to monitor for novolog changes. 07/05 * 70 year old female, intubated/sedated, s/p emergent cardiac cath yesterday, COVID19 pneumonia, hyperglycemic d/t IV Steroids * Patient started on insulin drip last night for BSG 441mg/dl, running 4.8-7 units/hr over past 14 hours, currently at 5.6units/hr * Started NPH this morning when pharmacy consulted to cover steroid induced hyperglycemia PLAN FOR INPATIENT GLYCEMIC CONTROL: * Basal insulin * 25 units QAM * NPH 60 units SQ daily with IV Dexamethasone * Correctional Insulin: Novolog Correction per scale q4 Goal Range: Low 110 mg/dL - High 140 mg/dL Correction Factor: 10 mg/dL/unit * Prandial insulin: Per carb ratio of 1 unit per 4 grams CHO consumed* to cover tube feeds
[2021-07-08] MEDS: TUBE FEEDING WATER FLUSH OG SCH ×3 (14:51→21:13)
[2021-07-08] MEDS ORDERED: STAT IV Infusion **Titration per Protocol STA ×2 (14:52→18:17)
--- NOTE | 2021-07-08 14:52 | Critical Care Progress Note ---
Date of Service July 08, 2021 Assessment & Plan (1) Stress-induced cardiomyopathy: (2) Rapid atrial fibrillation: (3) VIKKI (obstructive sleep apnea): (4) COVID-19: (5) Acute respiratory failure with hypoxia and hypercapnia: (6) Pneumonia due to COVID-19 virus: (7) Morbid obesity with BMI of 50.0-59.9, adult: Plan: Impression: This is a 70-year-old female that received 1 dose of Pfizer vaccination 06/04/2021. She developed signs of congestion and fever and presented to PCP June 23, 2021 and was started on Augmentin. Over the next several days she worsened and presented the emergency room 06/29/2021 where she reported that she had been found positive for Covid and was feeling worse. She was started on remdesivir, dexamethasone and supplemental oxygen. The next day she was started on baricitinib. Patient was intubated 07/04/21 following which patient had ST elevation and was taken to [facility]. Clean coronaries with possible stress-induced cardiomyopathy. EF was 30% at that time 24-hour events: Weaning off phenylephrine Afrin. She was proned yesterday but had no significant improvement in her oxygenation. She was bradycardic so propofol was weaned down with resolution in her bradycardia. Recommendations: 1. Neurologic: Continue sedation as above patient continues to require deep sedation. We will wean off paralytics as this does not appear to have significantly improved her oxygenation. Continue Neurontin. Hold pramipexole. 2. Cardiovascular: Decreased ejection fraction with probable Takotsubo cardiomyopathy. Romero-Synephrine now off. Coronaries were clean on cardiac catheterization. Did have episode of atrial fibrillation with rapid ventricular response. Bradycardia resolved with discontinuation of Romero-Synephrine and propofol. Now off amiodarone and in sinus rhythm. Additional management per cardiology. Last BMP was 1112 on 07/02/2021. Continue negative balance fluid status as tolerated. 3. Pulmonary: CT angiogram showed diffuse groundglass opacities with no evidence of pulmonary embolism or vascular filling defects. Current vent settings: AC 20/350/12/0.7 with Pplat 33 and ABG 7.48/49/54 with P/F of 77 and poor compliance. Patient has not responded to interventions such as neuromuscular blockade or proning so we will avoid these interventions in the future. She is not a candidate for ECMO given her body mass index of 48. There are no additional rescue therapies available for the patient at the current time. 4. GI: Continue trophic tube feeding. 5. Renal: Acid-base status and electrolytes are stable. Discontinued Myrbetriq. Will give 1 dose of Diamox for her metabolic alkalosis today 6. Endocrine: Glycemic control per protocol. 7. Heme-onc: No active issues. DVT prophylaxis with enoxaparin 60 mg subcutaneously every 12 hours. 8. ID: White count normal. No fever. Procalcitonin 0.07 on 07/02. Blood cultures are negative x2. Respiratory culture not yet collected --Prophylaxis VTE: Heparin drip discontinued. Continue with enoxaparin 60 mg subcutaneously twice daily GI: Pantoprazole 40 mg twice daily via OG tube Lines: Right IJ, left radial, positive [place] Patient remains critically ill with multiorgan system dysfunction. Her prognosis is unclear. Attempted to update both daughters by phone today however phone went directly to voicemail. Doubt CPR or other ACLS interventions would be effective in improving the patient's overall outcome so this will be discussed. She was reviewed on multidisciplinary rounds and discussed with the bedside critical care nurse on multiple occasions. A total of 65 min CC time managing this patient including end of life issues. Admission and Anticipated Discharge Date Admission Date: June 29, 2021 Subjective Intubated sedated and paralyzed Review of Systems Review of Systems: Unobtainable due to endotracheal tube Physical Exam Constitutional: + mechanically ventilated Neck: trachea midline, no thyromegaly Respiratory: normal respiratory effort, lungs clear to auscultation Cardiovascular: RRR, no murmur, no edema Gastrointestinal (Abdomen): normal bowel sounds, soft, nontender, no hepato splenomegaly Musculoskeletal: Extremities: extremities normal to inspection Skin: no rashes, warm and dry Lymphatic: no cervical lymphadenopathy Results & Data Results & Data ([facility]) Vital Signs (Past 12 Hours) Vital Signs Pulse Resp Pulse Ox 07/08/21 12:00 54 L 20 86 L 07/08/21 11:50 49 L 20 91 07/08/21 11:30 49 L 20 86 L 07/08/21 11:00 46 L 20 87 L 07/08/21 10:30 45 L 20 89 L 07/08/21 10:00 43 L 20 89 L 07/08/21 09:30 49 L 20 88 L 07/08/21 09:05 46 L 20 90 07/08/21 09:00 47 L 20 91 07/08/21 08:30 43 L 20 88 L 07/08/21 08:00 39 L 20 98 07/08/21 07:30 40 L 20 90 07/08/21 07:00 41 L 20 89 L 07/08/21 06:30 42 L 20 91 07/08/21 06:00 43 L 20 90 07/08/21 05:45 41 L 20 90 07/08/21 05:30 42 L 20 90 07/08/21 05:22 42 L 20 90 07/08/21 05:15 40 L 20 90 07/08/21 05:00 42 L 20 90 07/08/21 04:45 41 L 20 90 07/08/21 04:30 43 L 20 90 07/08/21 04:15 41 L 20 89 L 07/08/21 04:00 43 L 20 90 07/08/21 03:45 40 L 20 90 07/08/21 03:30 42 L 20 90 07/08/21 03:15 42 L 20 89 L 07/08/21 03:00 41 L 20 89 L 07/08/21 02:45 41 L 20 90 Critical Care Results & Data Vital Signs (Past 12 Hours) Vital Signs Pulse Resp Pulse Ox 07/08/21 12:00 54 L 20 86 L 07/08/21 11:50 49 L 20 91 07/08/21 11:30 49 L 20 86 L 07/08/21 11:00 46 L 20 87 L 07/08/21 10:30 45 L 20 89 L 07/08/21 10:00 43 L 20 89 L 07/08/21 09:30 49 L 20 88 L 07/08/21 09:05 46 L 20 90 07/08/21 09:00 47 L 20 91 07/08/21 08:30 43 L 20 88 L 07/08/21 08:00 39 L 20 98 07/08/21 07:30 40 L 20 90 07/08/21 07:00 41 L 20 89 L 07/08/21 06:30 42 L 20 91 07/08/21 06:00 43 L 20 90 07/08/21 05:45 41 L 20 90 07/08/21 05:30 42 L 20 90 07/08/21 05:22 42 L 20 90 07/08/21 05:15 40 L 20 90 07/08/21 05:00 42 L 20 90 07/08/21 04:45 41 L 20 90 07/08/21 04:30 43 L 20 90 07/08/21 04:15 41 L 20 89 L 07/08/21 04:00 43 L 20 90 07/08/21 03:45 40 L 20 90 07/08/21 03:30 42 L 20 90 07/08/21 03:15 42 L 20 89 L 07/08/21 03:00 41 L 20 89 L 07/08/21 02:45 41 L 20 90 Lab & Micro Results (Past 24 Hours) No Data to Display Na 135 mmol/L (136-145) L 07/08/21 K 3.7 mmol/L (3.5-5.1) 07/08/21 Cl 97 mmol/L (98-107) L 07/08/21 CO2 32 mmol/L (21-32) 07/08/21 Anion Gap 6.0 (3-11) 07/08/21 BUN 32 mg/dl (7-18) H 07/08/21 Creatinine 0.87 mg/dl (0.6-1.2) 07/08/21 Estimated GFR ( Amer) 79.3 ml/min 07/08/21 Estimated GFR (Non-Af Amer) 68.5 ml/min 07/08/21 BUN/Creatinine Ratio 36.5 (10-20) H 07/08/21 Glu 119 mg/dl (70-99) H 07/08/21 Ca 8.8 mg/dl (8.5-10.1) 07/08/21 Phosphorus Level 3.7 mg/dl (2.5-4.9) 07/08/21 Mg 2.2 mg/dl (1.8-2.4) 07/08/21 06:43 07/08/21 Calcium Level 8.8 mg/dl (8.5-10.1) 07/08/21 06:43 07/08/21 Claude Test NA 07/08/21 05:22 07/08/21 Diagnostic Findings (Past 24 Hours) Chest X-Ray 07/08/21 07:00 XR chest 1V portable CLINICAL HISTORY: Respiratory failure. COMPARISON STUDY: Chest radiograph and chest CT July 06, 2021. FINDINGS: Left shoulder arthroplasty is incidentally noted. Right internal jugular central line is in place. Tip of nasogastric tube is within the body of the stomach. Tip of endotracheal tube is 2.1 cm above the lee ann. There is no pneumothorax or pleural effusion. Extensive bilateral airspace opacities are similar to prior exam. Cardiomegaly is unchanged. IMPRESSION: 1. Satisfactory positioning of lines and tubes. 2. No significant change in extensive bilateral airspace opacities consistent with viral pneumonia. ACT 112: Negative or not required by law. Electronically signed by: Darrel Au M.D. 07/08/2021 9:49 AM I & O Totals 24 Hours 07/07/21 07/08/21 07/09/21 06:59 06:59 06:59 Intake Total 1791.737 / 8849.854 3268.740 / 1838.740 648.306 / 648.306 Output Total 3310 / 3310 1963 / 1965 500 / 500 Balance -1518.263 / -1518.263 -126.260 / -126.260 148.306 / 148.306 Cumulative 06/29/21 12:00 thru 07/08/21 12:19 Intake Total 97902.274 Output Total 38875 Balance -7211.726 RT Ventilator Mngmt (Last Documented) Ventilator Ordered Settings Ventilator Support Mode Assist Control 07/08/21 12:00 Respiratory Rate 20 07/08/21 12:00 Ventilator Tidal Volume 350 07/08/21 12:00 Setting Minute Ventilation 7.6 07/08/21 11:50 Positive End Expiratory 12 07/08/21 12:00 Pressure Fraction of Inspired Oxygen 70 07/08/21 12:00 Machine Comment increased to 100%O2/ patient 07/07/21 15:05 flipped to supine Ventilator - PT Measurements Respiratory Rate 20 Exhaled Tidal Volume 380 Minute Ventilation 7.6 Peak Inspiratory Airway 36 Pressure Plateau Pressure 33 Respiratory Cycle Inspiratory: 1:2.2 Expiratory Ratio Inspiratory Phase Time 0.95 End-Tidal CO2 31 Static Lung Compliance 18.10 Dynamic Lung Compliance 15.83 Normal Static Lung Compliance 44.00 Patient Measurements Comment Patient ETT has slow,leak. Air added at time of check. Coding Level of Care Code Critical Care 1st 30-74 mins Diagnoses Stress-induced cardiomyopathy I51.81 Rapid atrial fibrillation I48.91 VIKKI (obstructive sleep apnea) G47.33 COVID-19 U07.1 Acute respiratory failure with hypoxia and hypercapnia J96.01; J96.02 Pneumonia due to COVID-19 virus U07.1; J12.82 Morbid obesity with BMI of 50.0-59.9, adult E66.01; Z68.43
[2021-07-08] MEDS ORDERED: NOREPINEPHRINE/D5W 8 MG/508 ML BAG IV SCH (15:00)
[2021-07-08] MEDS ORDERED: acetaZOLAMIDE 250 MG TAB PO ONE (15:00)
[2021-07-08] MEDS: MIDAZOLAM BOLUS FROM BAG IV PRN ×3 (16:46→22:54)
--- NOTE | 2021-07-08 18:40 | Hospitalist Progress Note ---
Date of Service July 08, 2021 Assessment & Plan (1) Acute respiratory failure with hypoxia and hypercapnia: Plan: 2nd to severe COVID-19 pneumonia and acute CHF/stress-induced cardiomyopathy. s/p intubation 07/04/21. remains intubated and ventilated, did not tolerate paralysis or proning CTA negative for PE, significant lung involvement seen Dr. Cooper managing ventilator and pulmonary status (2) Pneumonia due to COVID-19 virus: Plan: severe, with resulting acute hypoxic/hypercapneic respiratory failure and ARDS. progressive disease since admission with ultimate maxed out settings on HFNC and 100% FIO2 requirements on 07/04. s/p intubation with mech ventilation 07/04. Had received 5 days of baricitinib - now d/c due to vent status. Decadron completed 10 day course Completed 5-day course of Remdesivir. Acute systolic/diastolic CHF - cont to diurese. No evidence of bacterial superinfection. (3) Stress-induced cardiomyopathy: Plan: s/p heart alert with emergent cath by Dr Brown on 07/04 due to suspected STEMI. Developed ST segment elevations shortly after intubation. Cath - normal coronaries, global hypokinesis - EF 30%. EF was normal just a few days prior. Takotsubo's. This was the cause of her abnormal EKG and ST segment elevations pre-cath. Continue diuresis. Will ultimately need beta kelvin. Repeat echo this admission. Appreciate Dr Brown and his assistance. pressor support continues (4) Rapid atrial fibrillation: Plan: 07/04 AM -- initially on cardizem infusion which was subsequently stopped prior to intubation & her heart alert. Ultimately underwent synchronized cardioversion which was not successful. She was loaded with amiodarone bolus, then amiodarone infusion. Converted back to NSR late 07/04. Amiodarone drip now off. Will remain on heparin drip. repeat CTA chest on 07/06 was negative for PE, only showed progression of ground glass opacities TSH noted to be slightly depressed and FT4 slightly high - simply repeat these in a few weeks. This is not c/w significant hyperthyroidism leading to a.fib. (5) Acute systolic CHF (congestive heart failure): Plan: echo earlier on admissio with preserved EF but IVC dilated. had been receiving once daily IV lasix. heart alert 07/04 - stress-induced cardiomyopathy with EF 30% based on cath showing normal coronaries. cont diuresis. will ultimately need BB if BP can tolerate, but currently on pressors. (6) Hypomagnesemia: Plan: replaced/resolved (7) COPD (chronic obstructive pulmonary disease): Plan: cont steroids/bronchodilators (8) Foot drop, bilateral: Plan: from lumbar radiculopathy - wears braces chronically at home (9) Hyperlipidemia: Plan: statin no CAD on cath (10) HTN (hypertension): Plan: now on pressors for BP support (11) Chronic radicular lumbar pain: Plan: Continue gabapentin baclofen and tramadol on hold (12) Restless leg syndrome: Plan: Cont pramipexole (13) Urinary Incontinence: Plan: goodwin (14) GERD (gastroesophageal reflux disease): Plan: Continue IV PPI twice daily (15) DMII (diabetes mellitus, type 2): Plan: ICU protocol (16) Morbid obesity with BMI of 50.0-59.9, adult: Plan: BMI 51 (17) Hydroureteronephrosis: Plan: b/l, as seen on CT nothing to do at this time 2nd to urinary reflux disease?? this is a risk factor for recurrent UTI, CKD, etc after recovering from COVID -- send to urology as outpatient (18) Enteritis: Plan: as seen on admission CT 2nd to COVID-19 infection no further diarrhea resolved (19) VIKKI (obstructive sleep apnea): Plan: now vented (20) DVT prophylaxis: Plan: Lovenox 60 q12 (21) Rhabdomyolysis due to COVID-19: Plan: resolved; most recent CPK wnl Plan: contact is the patient's son for any type of procedure Dr. Cooper managing patient Admission and Anticipated Discharge Date Admission Date: June 29, 2021 Subjective Intubated sedated and paralyzed Review of Systems Review of Systems: Unobtainable due to cognitive status and Unobtainable due to endotracheal tube Physical Exam Physical Exam: The patient appeared moderately ill Vital signs as documented. Lungs are coarse bilaterally Cardiac exam, Rhythm is regular.. No murmurs, rubs or gallops. Abdominal exam reveals normal bowel sounds, soft, no masses Extremities are nonedematous and both pedal pulses are normal. Neurologic exam is sedated Results & Data Results & Data ([facility]) Vital Signs (Past 12 Hours) Vital Signs Pulse Resp Pulse Ox 07/08/21 18:16 54 L 20 89 L 07/08/21 17:30 37 L 20 94 07/08/21 17:00 48 L 20 88 L 07/08/21 16:30 50 L 20 87 L 07/08/21 16:00 52 L 20 89 L 07/08/21 15:30 51 L 20 85 L 07/08/21 15:00 48 L 20 87 L 07/08/21 14:30 50 L 20 90 07/08/21 14:15 53 L 20 89 L 07/08/21 14:00 53 L 20 89 L 07/08/21 13:30 55 L 20 88 L 07/08/21 13:00 53 L 20 88 L 07/08/21 12:30 49 L 20 89 L 07/08/21 12:00 54 L 20 86 L 07/08/21 11:50 49 L 20 91 07/08/21 11:30 49 L 20 86 L 07/08/21 11:00 46 L 20 87 L 07/08/21 10:30 45 L 20 89 L 07/08/21 10:00 43 L 20 89 L 07/08/21 09:30 49 L 20 88 L 07/08/21 09:05 46 L 20 90 07/08/21 09:00 47 L 20 91 07/08/21 08:30 43 L 20 88 L 07/08/21 08:00 39 L 20 98 07/08/21 07:30 40 L 20 90 07/08/21 07:00 41 L 20 89 L PG Care Time/CCT Total # of Minutes Spent Total Time Spent with Patient: Total time spent is greater than 50% in coordination of care (as documented) at patient's floor/unit and/or counseling patient: Coding Level of Care Code 96748 Subseq Hosp Care Lvl 2 Diagnoses Acute respiratory failure with hypoxia and hypercapnia J96.01; J96.02 Pneumonia due to COVID-19 virus U07.1; J12.82 Stress-induced cardiomyopathy I51.81 Rapid atrial fibrillation I48.91 Acute systolic CHF (congestive heart failure) I50.21 Hypomagnesemia E83.42 COPD (chronic obstructive pulmonary disease) J44.9 Foot drop, bilateral M21.371; M21.372 Hyperlipidemia E78.5 HTN (hypertension) I10 Chronic radicular lumbar pain M54.16; G89.29 Restless leg syndrome G25.81 Urinary Incontinence R32 GERD (gastroesophageal reflux disease) K21.9 DMII (diabetes mellitus, type 2) E11.9 Morbid obesity with BMI of 50.0-59.9, adult E66.01; Z68.43 Hydroureteronephrosis N13.30 Enteritis K52.9 VIKKI (obstructive sleep apnea) G47.33 DVT prophylaxis Z29.9 Rhabdomyolysis due to COVID-19 U07.1; M62.82
[2021-07-08] MEDS: DOPamine / D5W 400 MG/250 ML BAG IV SCH (19:43)
[2021-07-09] MEDS: INSULIN ASPART 100 UNITS/ML 3 ML PEN SC SCH ×6 (00:24→21:05)
[2021-07-09] MEDS: MIDAZOLAM HCL 125 MG/250 ML BAG IV SCH ×2 (00:25→18:17)
[2021-07-09] MEDS: fentaNYL citrate 2,500 MCG/250 ML BAG IV SCH ×2 (01:17→15:13)
[2021-07-09 03:47] LABS: iSTAT Allen Test Pass; iSTAT Art Bld Gas pCO2 Correct 55 mmHg (35-46); iSTAT Art Bld Gas pH Corrected 7.435 (7.35-7.45); iSTAT Arterial Blood Gas HCO3 37 meg/L (19-24); iSTAT Arterial Blood Gas pCO2 54 mmHg (35-46); iSTAT Arterial Blood Gas pH 7.44 (7.35-7.45); iSTAT Arterial Blood Gas pO2 60 mmHg (80-95); iSTAT Arterial Blood Gas pO2 C 62; iSTAT Carbon Dioxide 38 mmol/L (24-31); iSTAT FiO2 90 %; iSTAT Hematocrit 40 % (37-47); iSTAT Hemoglobin 13.6 g/dl (12.0-16.0); iSTAT Potassium 3.8 mmol/L (3.3-5.0); iSTAT Site Art Line; iSTAT Sodium 139 mmol/L (135-144)
[2021-07-09] MEDS: TUBE FEEDING WATER FLUSH OG SCH ×5 (05:21→21:06)
[2021-07-09 06:26] LABS: Partial Thromboplastin Ratio 0.9; Partial Thromboplastin Time 24.9 Seconds (21.0-31.0)
[2021-07-09 06:29] LABS: Basophils # (auto) 0.01 K/uL (0-0.2); Basophils % (auto) 0.1 %; Eosinophils # (auto) 0.01 K/uL (0-0.5); Eosinophils % (auto) 0.1 %; Hematocrit (blood only) 37.4 % (37-47); Hemoglobin 12.9 g/dL (12.0-16.0); Immature Granulocytes # (auto) 0.04 K/uL (0.00-0.02); Immature Granulocytes % (auto) 0.4 %; Lymphocytes # (auto) 0.66 K/uL (1.2-3.4); Lymphocytes % (auto) 5.9 %; Mean Corpuscular Hemoglobin 32.8 pg (25-34); Mean Corpuscular Hgb Conc 34.5 g/dL (32-36); Mean Corpuscular Volume 95.2 fL (80-100); Monocytes # (auto) 1.38 K/uL (0.11-0.59); Monocytes % (auto) 12.2 %; Neutrophils # (auto) 9.18 K/uL (1.4-6.5); Neutrophils % (auto) 81.3 %; Platelet Count 385 K/uL (130-400); RDW Coefficient of Variation 13.3 % (11.5-14.5); RDW Standard Deviation 46.2 fL (36.4-46.3); Red Blood Count 3.93 M/uL (4.2-5.4); White Blood Count 11.28 K/uL (4.8-10.8)
[2021-07-09] MEDS: ARTIFICIAL TEARS OP OINT 3.5 GM TUBE OP SCH ×5 (06:33→21:07)
[2021-07-09 06:49] LABS: BUN Creatinine Ratio 40.9 (10-20); Creatinine Clr Calc Pharmacy 70.8 ml/min; Est GFR (African American) 74.2 ml/min; Magnesium 2.3 mg/dl (1.8-2.4); Phosphorus 3.5 mg/dl (2.5-4.9); Potassium 3.8 mmol/L (3.5-5.1)
[2021-07-09] MEDS: DOPamine / D5W 400 MG/250 ML BAG IV SCH ×2 (07:06→18:16)
[2021-07-09] MEDS: ICU ELECTROLYTE REPLACEMENT PROTOCOL SCH ×2 (07:18→18:16)
[2021-07-09] MEDS: dexAMETHasone 20 MG in SODIUM CHLORIDE 0.9% 50 ML IV SCH (08:48)
[2021-07-09] MEDS: PANTOprazole 40 MG in SYRINGE 0 ML IV SCH ×2 (08:52→21:07)
[2021-07-09] MEDS: ENOXAPARIN INJ 60 MG/0.6 ML SYR SQ SCH ×2 (08:53→21:06)
[2021-07-09] MEDS: GABAPENTIN 250 MG/5 ML 470 ML BTL PO SCH ×2 (08:53→21:07)
[2021-07-09] MEDS: MULTI VIT W/MINERALS LIQUID 15 ML UDP NG SCH (08:53)
[2021-07-09] MEDS: INSULIN GLARGINE SOLOSTAR 100 UNITS/ML 3 ML PEN SC SCH (08:54)
[2021-07-09] MEDS: ROSUVASTATIN CALCIUM 10 MG TAB PO SCH (08:54)
[2021-07-09] MEDS: POTASSIUM CHLORIDE 20 MEQ/15 ML UDC GT SCH ×2 (08:55→15:47)
--- NOTE | 2021-07-09 09:17 | XRay Report ---
XR chest 1V portable CLINICAL HISTORY: Respiratory failure. COMPARISON STUDY: Chest radiograph July 08, 2021. Chest CT July 06, 2021. FINDINGS: Tip of endotracheal tube is 3.1 cm above the lee ann. Right internal jugular central remains in place. Tip of nasogastric tube is not well visualized but at least within the stomach. Left arthr oplasty is incidentally noted. No pneumothorax or pleural effusion. Cardiomegaly is unchanged. Extens chris bilateral airspace opacities are noted. Slight improvement is noted since prior exam. IMPRESSION: 1. Satisfactory positioning of lines and tubes. 2. Extensive bilateral airspace opacities suggestive of viral pneumonia, slightly improved since prio r exam. ACT 112: Negative or not required by law. Electronically signed by: Darrel Au M.D. 07/09/2021 9:16 AM
[2021-07-09] MEDS: INSULIN HUMAN NPH SC SCH (09:44)
[2021-07-09] MEDS: POTASSIUM CHLORIDE / WTR 10 MEQ/100 ML PLCT IV SCH ×4 (09:45→13:22)
--- NOTE | 2021-07-09 11:44 | Critical Care Progress Note ---
Date of Service July 09, 2021 Assessment & Plan (1) Stress-induced cardiomyopathy: (2) Rapid atrial fibrillation: (3) VIKKI (obstructive sleep apnea): (4) COVID-19: (5) Acute respiratory failure with hypoxia and hypercapnia: (6) Pneumonia due to COVID-19 virus: (7) Morbid obesity with BMI of 50.0-59.9, adult: Plan: Impression: This is a 70-year-old female that received 1 dose of Pfizer vaccination 06/04/2021. She developed signs of congestion and fever and presented to PCP June 23, 2021 and was started on Augmentin. Over the next several days she worsened and presented the emergency room 06/29/2021 where she reported that she had been found positive for Covid and was feeling worse. She was started on remdesivir, dexamethasone and supplemental oxygen. The next day she was started on baricitinib. Patient was intubated 07/04/21 following which patient had ST elevation and was taken to [facility]. Clean coronaries with possible stress-induced cardiomyopathy. EF was 30% at that time 24-hour events: Transitioned from phenylephrine to norepinephrine due to bradycardia however continued to have significant issues with low heart rate and very high blood pressures. Transition to dopamine which she is tolerating much better. Neuromuscular blockade has been discontinued. She remains sedated. Her vent settings are stable. Urine output is adequate. Recommendations: 1. Neurologic: Continue sedation as above patient continues to require deep sedation. No improvement with neuromuscular blockade so we will discontinue. Continue Neurontin. Hold pramipexole. 2. Cardiovascular: Decreased ejection fraction with probable Takotsubo cardiomyopathy. Became bradycardic with Romero-Synephrine and significantly hypertensive with norepinephrine, currently tolerating low-dose dopamine without significant bradycardia or hypertensive swings. Coronaries were clean on cardiac catheterization. Did have episode of atrial fibrillation with rapid ventricular response. Now off amiodarone and in sinus rhythm. Additional management per cardiology. Last BMP was 1112 on 07/02/2021. Continue negative balance fluid status as tolerated. She is a liters negative since presentation. 3. Pulmonary: CT angiogram showed diffuse groundglass opacities with no evidence of pulmonary embolism or vascular filling defects. Day #6 mechanical ventilation. Current vent settings: AC 20/380/12/0.85 with Pplat 31 and ABG 7.44/54/60 with P/F of 70 and poor compliance. Patient has not responded to interventions such as neuromuscular blockade or proning so we will avoid these interventions in the future. She is not a candidate for ECMO given her body mass index of 48. There are no additional rescue therapies available for the patient at the current time. If her oxygenation improves and were unable to make progress weaning her ventilator, may consider tracheostomy early next week. 4. GI: Continue tube feeding. May require long-term enteric access 5. Renal: Acid-base status and electrolytes are stable. Hold diuresis given her hemodynamic instability 6. Endocrine: Glycemic control per protocol. 7. Heme-onc: No active issues. DVT prophylaxis with enoxaparin 60 mg subcutaneously every 12 hours. 8. ID: White count normal. No fever. Procalcitonin 0.07 on 07/02. Blood cultures are negative x2. Respiratory culture not yet collected --Prophylaxis VTE: enoxaparin 60 mg subcutaneously twice daily GI: Pantoprazole 40 mg twice daily via OG tube Lines: Right IJ, left radial, [place] Patient remains critically ill with multiorgan system dysfunction. Her prognosis is unclear. Updated son Leana, daughters didnt answer phone. Doubt CPR or other ACLS interventions would be effective in improving the patient's overall outcome and recommend DNR but family not ready to consider currently. A total of 44 min CC time managing this patient including end of life issues. Discussed with critical care nurse at bedside. Admission and Anticipated Discharge Date Admission Date: June 29, 2021 Subjective Intubated and sedated Review of Systems Review of Systems: Unobtainable due to endotracheal tube Physical Exam Constitutional: + mechanically ventilated Neck: trachea midline, no thyromegaly Respiratory: normal respiratory effort, lungs clear to auscultation Cardiovascular: RRR, no murmur, no edema Gastrointestinal (Abdomen): normal bowel sounds, soft, nontender, no hepatosplenomegaly Musculoskeletal: Extremities: extremities normal to inspection Skin: no rashes, warm and dry Lymphatic: no cervical lymphadenopathy Results & Data Results & Data ([facility]) Vital Signs (Past 12 Hours) Vital Signs Temp Pulse Resp BP Pulse Ox 07/09/21 11:00 57 L 20 141/63 H 87 L 07/09/21 10:30 58 L 20 88 L 07/09/21 10:23 56 L 20 89 L 07/09/21 10:00 56 L 20 114/59 L 91 07/09/21 09:30 56 L 20 92 07/09/21 09:00 55 L 20 92 07/09/21 08:30 55 L 20 92 07/09/21 08:00 54 L 20 113/64 92 07/09/21 07:54 55 L 20 93 07/09/21 07:30 54 L 20 93 07/09/21 07:00 53 L 20 93 07/09/21 06:31 37.0 C 07/09/21 06:30 58 L 20 88 L 07/09/21 06:15 51 L 20 93 07/09/21 06:00 52 L 20 93 07/09/21 05:45 51 L 20 93 07/09/21 05:30 51 L 20 93 07/09/21 05:26 37.2 C 07/09/21 05:15 52 L 20 93 07/09/21 05:00 51 L 20 93 07/09/21 04:45 51 L 20 93 07/09/21 04:30 51 L 20 93 07/09/21 04:15 52 L 20 92 07/09/21 04:09 37.1 C 07/09/21 04:00 51 L 20 92 07/09/21 03:45 53 L 20 92 07/09/21 03:30 52 L 18 92 07/09/21 03:28 52 L 20 92 07/09/21 03:15 51 L 20 92 07/09/21 03:00 52 L 20 92 07/09/21 02:45 52 L 20 90 07/09/21 02:30 51 L 20 91 07/09/21 02:15 51 L 20 91 07/09/21 02:00 52 L 20 91 07/09/21 01:45 52 L 20 91 07/09/21 01:30 52 L 20 90 07/09/21 01:15 50 L 20 91 07/09/21 01:00 50 L 20 91 07/09/21 00:45 51 L 20 91 07/09/21 00:30 52 L 20 90 07/09/21 00:28 54 L 20 90 07/09/21 00:15 52 L 20 90 07/09/21 00:00 53 L 20 90 07/08/21 23:45 54 L 20 89 L Critical Care Results & Data Vital Signs (Past 12 Hours) Vital Signs Temp Pulse Resp BP Pulse Ox 07/09/21 11:00 57 L 20 141/63 H 87 L 07/09/21 10:30 58 L 20 88 L 07/09/21 10:23 56 L 20 89 L 07/09/21 10:00 56 L 20 114/59 L 91 07/09/21 09:30 56 L 20 92 07/09/21 09:00 55 L 20 92 07/09/21 08:30 55 L 20 92 07/09/21 08:00 54 L 20 113/64 92 07/09/21 07:54 55 L 20 93 07/09/21 07:30 54 L 20 93 07/09/21 07:00 53 L 20 93 07/09/21 06:31 37.0 C 07/09/21 06:30 58 L 20 88 L 07/09/21 06:15 51 L 20 93 07/09/21 06:00 52 L 20 93 07/09/21 05:45 51 L 20 93 07/09/21 05:30 51 L 20 93 07/09/21 05:26 37.2 C 07/09/21 05:15 52 L 20 93 07/09/21 05:00 51 L 20 93 07/09/21 04:45 51 L 20 93 07/09/21 04:30 51 L 20 93 07/09/21 04:15 52 L 20 92 07/09/21 04:09 37.1 C 07/09/21 04:00 51 L 20 92 07/09/21 03:45 53 L 20 92 07/09/21 03:30 52 L 18 92 07/09/21 03:28 52 L 20 92 07/09/21 03:15 51 L 20 92 07/09/21 03:00 52 L 20 92 07/09/21 02:45 52 L 20 90 07/09/21 02:30 51 L 20 91 07/09/21 02:15 51 L 20 91 07/09/21 02:00 52 L 20 91 07/09/21 01:45 52 L 20 91 07/09/21 01:30 52 L 20 90 07/09/21 01:15 50 L 20 91 07/09/21 01:00 50 L 20 91 07/09/21 00:45 51 L 20 91 07/09/21 00:30 52 L 20 90 07/09/21 00:28 54 L 20 90 07/09/21 00:15 52 L 20 90 07/09/21 00:00 53 L 20 90 07/08/21 23:45 54 L 20 89 L Lab & Micro Results (Past 24 Hours) RBC 3.93 M/uL (4.2-5.4) L 07/09/21 WBC 11.28 K/uL (4.8-10.8) H 07/09/21 Hgb 12.9 g/dL (12.0-16.0) 07/09/21 Hct 37.4 % (37-47) 07/09/21 MCV 95.2 fL (80-100) 07/09/21 MCH 32.8 pg (25-34) 07/09/21 MCHC 34.5 g/dL (32-36) 07/09/21 RDW Standard Deviation 46.2 fL (36.4-46.3) 07/09/21 RDW Coefficient of Variation 13.3 % (11.5-14.5) 07/09/21 Plt Count 385 K/uL (130-400) 07/09/21 MPV 10.0 fL (7.4-10.4) 07/09/21 Neutrophils (%) (Auto) 81.3 % 07/09/21 Lymphocytes (%) (Auto) 5.9 % 07/09/21 Monocytes # (Auto) 1.38 K/uL (0.11-0.59) H 07/09/21 Eosinophils # (Auto) 0.01 K/uL (0-0.5) 07/09/21 Immature Granulocyte % (Auto) 0.4 % 07/09/21 Neutrophils # (Auto) 9.18 K/uL (1.4-6.5) H 07/09/21 Lymphocytes # (Auto) 0.66 K/uL (1.2-3.4) L 07/09/21 Monocytes # (Auto) 1.38 K/uL (0.11-0.59) H 07/09/21 Eosinophils # (Auto) 0.01 K/uL (0-0.5) 07/09/21 Basophils # (Auto) 0.01 K/uL (0-0.2) 07/09/21 Immature Granulocyte # (Auto) 0.04 K/uL (0.00-0.02) H 07/09/21 Na 135 mmol/L (136-145) L 07/09/21 K 3.8 mmol/L (3.5-5.1) 07/09/21 Cl 96 mmol/L (98-107) L 07/09/21 CO2 34 mmol/L (21-32) H 07/09/21 Anion Gap 5.0 (3-11) 07/09/21 BUN 38 mg/dl (7-18) H 07/09/21 Creatinine 0.92 mg/dl (0.6-1.2) 07/09/21 Estimated GFR ( Amer) 74.2 ml/min 07/09/21 Estimated GFR (Non-Af Amer) 64.0 ml/min 07/09/21 BUN/Creatinine Ratio 40.9 (10-20) H 07/09/21 Glu 139 mg/dl (70-99) H 07/09/21 Ca 9.0 mg/dl (8.5-10.1) 07/09/21 Phosphorus Level 3.5 mg/dl (2.5-4.9) 07/09/21 Mg 2.3 mg/dl (1.8-2.4) 07/09/21 05:26 07/09/21 Calcium Level 9.0 mg/dl (8.5-10.1) 07/09/21 05:26 07/09/21 Claude Test Pass 07/09/21 03:34 07/09/21 Diagnostic Findings (Past 24 Hours) Chest X-Ray 07/09/21 07:00 XR chest 1V portable CLINICAL HISTORY: Respiratory failure. COMPARISON STUDY: Chest radiograph July 08, 2021. Chest CT July 06, 2021. FINDINGS: Tip of endotracheal tube is 3.1 cm above the lee ann. Right internal jugular central remains in place. Tip of nasogastric tube is not well visualized but at least within the stomach. Left arthroplasty is incidentally noted. No pneumothorax or pleural effusion. Cardiomegaly is unchanged. Extensive bilateral airspace opacities are noted. Slight improvement is noted since prior exam. IMPRESSION: 1. Satisfactory positioning of lines and tubes. 2. Extensive bilateral airspace opacities suggestive of viral pneumonia, slightly improved since prior exam. ACT 112: Negative or not required by law. Electronically signed by: Darrel Au M.D. 07/09/2021 9:16 AM I & O Totals 24 Hours 07/08/21 07/09/21 07/10/21 06:59 06:59 06:59 Intake Total 1838.740 / 7285.978 0042.071 / 1589.071 639.308 / 639.308 Output Total 1965 / 1964 2830 / 2830 150 / 150 Balance -126.260 / -126.260 -1240.929 / -1240.929 489.308 / 489.308 Cumulative 06/29/21 12:00 thru 07/09/21 10:16 Intake Total 85154.347 Output Total 45932 Balance -8111.653 RT Ventilator Mngmt (Last Documented) Ventilator Ordered Settings Ventilator Support Mode Assist Control 07/09/21 10:23 Respiratory Rate 20 07/09/21 11:00 Ventilator Tidal Volume 380 07/09/21 10:23 Setting Minute Ventilation 7.6 07/09/21 10:23 Positive End Expiratory 12 07/09/21 10:23 Pressure Fraction of Inspired Oxygen 85 07/09/21 10:23 Machine Comment DECREASED TO 85% FIO2 07/09/21 07:54 Ventilator - PT Measurements Respiratory Rate 20 Exhaled Tidal Volume 380 Minute Ventilation 7.6 Peak Inspiratory Airway 34 Pressure Plateau Pressure 31 Respiratory Cycle Inspiratory: 1:2.3 Expiratory Ratio Inspiratory Phase Time 0.9 End-Tidal CO2 37 Static Lung Compliance 20.00 Dynamic Lung Compliance 17.27 Normal Static Lung Compliance 45.00 Patient Measurements Comment Patient ETT has slow,leak. Air added at time of check. Coding Level of Care Code Critical Care 1st 30-74 mins Diagnoses Stress-induced cardiomyopathy I51.81 Rapid atrial fibrillation I48.91 VIKKI (obstructive sleep apnea) G47.33 COVID-19 U07.1 Acute respiratory failure with hypoxia and hypercapnia J96.01; J96.02 Pneumonia due to COVID-19 virus U07.1; J12.82 Morbid obesity with BMI of 50.0-59.9, adult E66.01; Z68.43
[2021-07-09] MEDS: FUROSEMIDE 40 MG/4 ML VIAL IV SCH ×2 (11:49→21:30)
--- NOTE | 2021-07-09 15:09 | Hospitalist Progress Note ---
Date of Service July 09, 2021 Assessment & Plan (1) Acute respiratory failure with hypoxia and hypercapnia: Plan: 2nd to severe COVID-19 pneumonia and acute HFrEFstress-induced cardiomyopathy. s/p intubation 07/04/21. remains intubated and ventilated, did not tolerate paralysis or proning CTA negative for PE, significant lung involvement with ground glass infiltrates seen Dr. Cooper managing ventilator and pulmonary status (2) Pneumonia due to COVID-19 virus: Plan: severe, with resulting acute hypoxic/hypercapneic respiratory failure and ARDS. progressive disease since admission with ultimate maxed out settings on HFNC and 100% FIO2 requirements on 07/04. s/p intubation with mech ventilation 07/04. Had received 5 days of baricitinib - now d/c due to vent status. Decadron completed 10 day course Completed 5-day course of Remdesivir. Acute systolic/diastolic CHF - cont to diurese. No evidence of bacterial superinfection. (3) Stress-induced cardiomyopathy: Plan: s/p heart alert with emergent cath by Dr Brown on 07/04 due to suspected STEMI. Developed ST segment elevations shortly after intubation. Cath - normal coronaries, global hypokinesis - EF 30%. HFrEF EF was normal just a few days prior. Takotsubo's. This was the cause of her abnormal EKG and ST segment elevations pre-cath. Continue diuresis. Will ultimately need beta kelvin. Repeat echo this admission. Appreciate Dr Brown and his assistance. pressor support continues (4) Rapid atrial fibrillation: Plan: 07/04 AM -- initially on cardizem infusion which was subsequently stopped prior to intubation & her heart alert. Ultimately underwent synchronized cardioversion which was not successful. She was loaded with amiodarone bolus, then amiodarone infusion. Converted back to NSR late 07/04. Amiodarone drip now off. Will remain on heparin drip. repeat CTA chest on 07/06 was negative for PE, only showed progression of ground glass opacities TSH noted to be slightly depressed and FT4 slightly high - simply repeat these in a few weeks. This is not c/w significant hyperthyroidism leading to a.fib. (5) Acute systolic CHF (congestive heart failure): Plan: echo earlier on admissio with preserved EF but IVC dilated. had been receiving once daily IV lasix. heart alert 11/20 - stress-induced cardiomyopathy with EF 30% based on cath showing normal coronaries. cont diuresis. will ultimately need BB if BP can tolerate, but currently on pressors. (6) Hypomagnesemia: Plan: replaced/resolved (7) COPD (chronic obstructive pulmonary disease): Plan: cont steroids/bronchodilators (8) Foot drop, bilateral: Plan: from lumbar radiculopathy - wears braces chronically at home (9) Hyperlipidemia: Plan: statin no CAD on cath (10) HTN (hypertension): Plan: now on pressors for BP support (11) Chronic radicular lumbar pain: Plan: Continue gabapentin baclofen and tramadol on hold (12) Restless leg syndrome: Plan: Cont pramipexole (13) Urinary Incontinence: Plan: goodwin (14) GERD (gastroesophageal reflux disease): Plan: Continue IV PPI twice daily (15) DMII (diabetes mellitus, type 2): Plan: ICU protocol (16) Morbid obesity with BMI of 50.0-59.9, adult: Plan: BMI 51, this is a direct risk to her mortality with covid pneumonia (17) Hydroureteronephrosis: Plan: b/l, as seen on CT, not severe at this time nothing to do at this time 2nd to urinary reflux disease?? this is a risk factor for recurrent UTI, CKD, etc after recovering from COVID -- send to urology as outpatient (18) Enteritis: Plan: as seen on admission CT 2nd to COVID-19 infection no further diarrhea resolved clinically (19) VIKKI (obstructive sleep apnea): Plan: now vented (20) DVT prophylaxis: Plan: Lovenox 60 q12 (21) Rhabdomyolysis due to COVID-19: Plan: resolved; most recent CPK wnl Plan: contact is the patient's son for any type of procedure updated daughter 07/09/21 Dr. Cooper managing patient Admission and Anticipated Discharge Date Admission Date: June 29, 2021 Subjective Intubated and sedated, pt with no new changes today, called family and updated Review of Systems Review of Systems: Unobtainable due to cognitive status Physical Exam Physical Exam: The patient appeared severely ill, sedated and ventilated Vital signs as documented. Lungs are coarse bilaterally and with rales Cardiac exam, Rhythm is regular.. No murmurs, rubs or gallops. Abdominal exam reveals normal bowel sounds, soft Extremities are nonedematous and both pedal pulses are normal. Results & Data Results & Data ([facility]) Vital Signs (Past 12 Hours) Vital Signs Temp Pulse Resp BP Pulse Ox 07/09/21 14:34 62 20 91 07/09/21 14:30 60 20 135/79 91 07/09/21 14:00 62 20 118/65 89 L 07/09/21 13:30 64 20 116/62 88 L 07/09/21 13:00 60 20 116/62 89 L 07/09/21 12:30 57 L 20 89 L 07/09/21 12:00 58 L 20 88 L 07/09/21 11:30 58 L 20 87 L 07/09/21 11:00 57 L 20 141/63 H 87 L 07/09/21 10:30 58 L 20 88 L 07/09/21 10:23 56 L 20 89 L 07/09/21 10:00 56 L 20 114/59 L 91 07/09/21 09:30 56 L 20 92 07/09/21 09:00 55 L 20 92 07/09/21 08:30 55 L 20 92 07/09/21 08:00 54 L 20 113/64 92 07/09/21 07:54 55 L 20 93 07/09/21 07:30 54 L 20 93 07/09/21 07:00 53 L 20 93 07/09/21 06:31 98.6 F 07/09/21 06:30 58 L 20 88 L 07/09/21 06:15 51 L 20 93 07/09/21 06:00 52 L 20 93 07/09/21 05:45 51 L 20 93 07/09/21 05:30 51 L 20 93 07/09/21 05:26 99.0 F 07/09/21 05:15 52 L 20 93 07/09/21 05:00 51 L 20 93 07/09/21 04:45 51 L 20 93 07/09/21 04:30 51 L 20 93 07/09/21 04:15 52 L 20 92 07/09/21 04:09 98.8 F 07/09/21 04:00 51 L 20 92 07/09/21 03:45 53 L 20 92 07/09/21 03:30 52 L 18 92 07/09/21 03:28 52 L 20 92 07/09/21 03:15 51 L 20 92 PG Care Time/CCT Total # of Minutes Spent Total Time Spent with Patient: Total time spent is greater than 50% in coordination of care (as documented) at patient's floor/unit and/or counseling patient: Coding Level of Care Code 02191 Subseq Hosp Care Lvl 2 Diagnoses Acute respiratory failure with hypoxia and hypercapnia J96.01; J96.02 Pneumonia due to COVID-19 virus U07.1; J12.82 Stress-induced cardiomyopathy I51.81 Rapid atrial fibrillation I48.91 Acute systolic CHF (congestive heart failure) I50.21 Hypomagnesemia E83.42 COPD (chronic obstructive pulmonary disease) J44.9 Foot drop, bilateral M21.371; M21.372 Hyperlipidemia E78.5 HTN (hypertension) I10 Chronic radicular lumbar pain M54.16; G89.29 Restless leg syndrome G25.81 Urinary Incontinence R32 GERD (gastroesophageal reflux disease) K21.9 DMII (diabetes mellitus, type 2) E11.9 Morbid obesity with BMI of 50.0-59.9, adult E66.01; Z68.43 Hydroureteronephrosis N13.30 Enteritis K52.9 VIKKI (obstructive sleep apnea) G47.33 DVT prophylaxis Z29.9 Rhabdomyolysis due to COVID-19 U07.1; M62.82
[2021-07-10] MEDS: TUBE FEEDING WATER FLUSH OG SCH ×7 (00:15→23:25)
[2021-07-10] MEDS: INSULIN ASPART 100 UNITS/ML 3 ML PEN SC SCH ×7 (00:16→23:25)
[2021-07-10] MEDS: ARTIFICIAL TEARS OP OINT 3.5 GM TUBE OP SCH ×6 (02:15→20:14)
[2021-07-10 05:20] LABS: iSTAT Arterial Blood Gas HCO3 36 meg/L (19-24); iSTAT Arterial Blood Gas pCO2 58 mmHg (35-46); iSTAT Arterial Blood Gas pO2 56 mmHg (80-95); iSTAT Carbon Dioxide 37 mmol/L (24-31); iSTAT FiO2 80 %; iSTAT Site Art Line
[2021-07-10] MEDS: fentaNYL citrate 2,500 MCG/250 ML BAG IV SCH ×2 (06:26→21:01)
[2021-07-10] MEDS: DOPamine / D5W 400 MG/250 ML BAG IV SCH ×4 (06:26→16:05)
[2021-07-10 07:18] LABS: Basophils # (auto) 0.01 K/uL (0-0.2); Basophils % (auto) 0.1 %; Hematocrit (blood only) 40.2 % (37-47); Hemoglobin 12.8 g/dL (12.0-16.0); Immature Granulocytes # (auto) 0.05 K/uL (0.00-0.02); Immature Granulocytes % (auto) 0.4 %; Lymphocytes # (auto) 1.33 K/uL (1.2-3.4); Mean Corpuscular Hemoglobin 31.1 pg (25-34); Mean Corpuscular Hgb Conc 31.8 g/dL (32-36); Mean Corpuscular Volume 97.6 fL (80-100); Mean Platelet Volume 9.9 fL (7.4-10.4); Monocytes # (auto) 0.86 K/uL (0.11-0.59); Monocytes % (auto) 6.5 %; Neutrophils # (auto) 11.03 K/uL (1.4-6.5); Platelet Count 416 K/uL (130-400); RDW Coefficient of Variation 13.4 % (11.5-14.5); RDW Standard Deviation 47.7 fL (36.4-46.3); Red Blood Count 4.12 M/uL (4.2-5.4); White Blood Count 13.28 K/uL (4.8-10.8)
[2021-07-10 07:28] LABS: Partial Thromboplastin Time 26.8 Seconds (21.0-31.0)
--- NOTE | 2021-07-10 07:31 | XRay Report ---
XR chest 1V portable HISTORY: 70 years-old Female f/u acute shortness of breath COMPARISON: Chest radiograph 07/09/2021 CTA chest 07/06/2021. TECHNIQUE: Portable AP view the chest FINDINGS: Cardiac silhouette is enlarged, unchanged. Endotracheal tube overlies the midline, 2.9 cm superior to the lee ann. Right IJ central venous catheter distal tip terminates in the expected location of the m id SVC. Enteric tube courses into the stomach calcified the [id number]. No pneumothorax. Small ple ural effusions. Interstitial coarsening with multifocal bilateral mid to lower lung zone predominant airspace opacities redemonstrated, generally unchanged. Degenerative changes of the spine and right s houlder. Surgical anchors of the right proximal humerus with reverse left shoulder total joint arthro plasty. IMPRESSION: 1. Satisfactory positioning of life-support lines and tubes. 2. Extensive bilateral airspace opacities suggestive of viral pneumonia are generally unchanged. 3. No pneumothorax. ACT 112: Negative or not required by law. The above report was generated using voice recognition software. It may contain grammatical, syntax o r spelling errors. Electronically signed by: Emerson Garner M.D. 07/10/2021 7:30 AM
--- NOTE | 2021-07-10 07:40 | Hospitalist Progress Note ---
Date of Service July 10, 2021 Assessment & Plan (1) Acute respiratory failure with hypoxia and hypercapnia: Plan: 2nd to severe COVID-19 pneumonia and acute HFrEF stress-induced cardiomyopathy. s/p intubation 07/04/21. remains intubated and ventilated, did not tolerate paralysis or proning, pt with little ability to wean oxygen CTA negative for PE, significant lung involvement with ground glass infiltrates seen Dr. Cooper managing ventilator and pulmonary status (2) Pneumonia due to COVID-19 virus: Plan: severe, with resulting acute hypoxic/hypercapneic respiratory failure and ARDS. progressive disease since admission s/p [facility]. Had received 5 days of baricitinib - d/c due to vent status. Decadron completed 10 day course, now on ARDS net dosing Completed 5-day course of Remdesivir. Acute systolic/diastolic CHF - cont to diurese. (3) Stress-induced cardiomyopathy: Plan: s/p heart alert with emergent cath by Dr Brown on 07/04 due to suspected STEMI. Developed ST segment elevations shortly after intubation. Cath - normal coronaries, global hypokinesis - EF 30%. HFrEF EF was normal just a few days prior. Takotsubo's. This was the cause of her abnormal EKG and ST segment elevations pre-cath. Continue diuresis. ultimately consider beta kelvin. Repeat echo this admission. Appreciate Dr Brown and his assistance. pressor support continues (4) Rapid atrial fibrillation: Plan: 07/04 AM -- initially on cardizem infusion which was subsequently stopped prior to intubation & her heart alert. Ultimately underwent synchronized cardioversion which was not successful. She was loaded with amiodarone bolus, then amiodarone infusion. Converted back to NSR late 07/04. Amiodarone drip now off. Will remain on heparin drip. repeat CTA chest on 07/06 was negative for PE, only showed progression of ground glass opacities TSH noted to be slightly depressed and FT4 slightly high - simply repeat these in a few weeks. This is not c/w significant hyperthyroidism leading to a.fib. (5) Acute systolic CHF (congestive heart failure): Plan: echo earlier on admissio with preserved EF but IVC dilated. had been receiving once daily IV lasix. heart alert 07/04 - stress-induced cardiomyopathy with EF 30% based on cath showing normal coronaries. cont diuresis. will ultimately need BB if BP can tolerate, but currently on pressors. (6) Hypomagnesemia: Plan: replaced/resolved (7) COPD (chronic obstructive pulmonary disease): Plan: cont steroids/bronchodilators (8) Foot drop, bilateral: Plan: from lumbar radiculopathy - wears braces chronically at home (9) Hyperlipidemia: Plan: statin no CAD on cath (10) HTN (hypertension): Plan: now on pressors for BP support (11) Chronic radicular lumbar pain: Plan: typically on gabapentin baclofen and tramadol on hold (12) Urinary Incontinence: Plan: goodwin (13) GERD (gastroesophageal reflux disease): Plan: Continue IV PPI twice daily (14) DMII (diabetes mellitus, type 2): Plan: ICU protocol (15) Morbid obesity with BMI of 50.0-59.9, adult: Plan: BMI 51, this is a direct risk to her mortality with covid pneumonia (16) Hydroureteronephrosis: Plan: b/l, as seen on CT, not severe at this time nothing to do at this time 2nd to urinary reflux disease?? this is a risk factor for recurrent UTI, CKD, etc after recovering from COVID -- send to urology as outpatient (17) Enteritis: Plan: as seen on admission CT 2nd to COVID-19 infection no further diarrhea resolved clinically (18) VIKKI (obstructive sleep apnea): Plan: now vented (19) DVT prophylaxis: Plan: Lovenox 60 q12 (20) Restless leg syndrome: Plan: typically on pramipexole (21) Rhabdomyolysis due to COVID-19: Plan: resolved; most recent CPK wnl Plan: contact is the patient's son for any type of procedure updated daughter 07/09/21 Dr. Cooper managing patient Admission and Anticipated Discharge Date Admission Date: June 29, 2021 Subjective Intubated and sedated, discused with pulmonary no improvement Review of Systems Review of Systems: Unobtainable due to cognitive status and Unobtainable due to endotracheal tube Physical Exam Physical Exam: The patient appeared severely ill, sedated and ventilated Vital signs as documented. Lungs are coarse bilaterally and with rales Cardiac exam, Rhythm is regular.. No murmurs, rubs or gallops. Abdominal exam reveals normal bowel sounds, soft Extremities are nonedematous and both pedal pulses are normal. Results & Data Results & Data ([facility]) Vital Signs (Past 12 Hours) Vital Signs Temp Pulse Resp BP Pulse Ox 07/10/21 07:00 61 20 89 L 07/10/21 06:00 99.9 F H 63 20 91 07/10/21 05:00 64 20 93 07/10/21 04:42 65 22 92 07/10/21 04:00 64 20 118/65 92 07/10/21 03:00 64 20 92 07/10/21 02:30 63 20 91 07/10/21 02:00 63 20 91 07/10/21 01:30 65 20 92 07/10/21 01:00 78 20 91 07/10/21 00:30 65 20 89 L 07/10/21 00:00 99.1 F 64 20 118/51 L 90 07/09/21 23:30 65 20 90 07/09/21 23:00 67 20 89 L 07/09/21 22:46 67 20 90 07/09/21 22:00 69 20 88 L 07/09/21 21:30 67 20 89 L 07/09/21 21:00 69 20 90 07/09/21 20:30 69 16 100 07/09/21 20:00 98.8 F 71 17 114/50 L 100 07/09/21 19:40 71 26 H 100 PG Care Time/CCT Total # of Minutes Spent Total Time Spent with Patient: Total time spent is greater than 50% in coordination of care (as documented) at patient's floor/unit and/or counseling patient: Coding Level of Care Code 99937 Subseq Hosp Care Lvl 2 Diagnoses Acute respiratory failure with hypoxia and hypercapnia J96.01; J96.02 Pneumonia due to COVID-19 virus U07.1; J12.82 Stress-induced cardiomyopathy I51.81 Rapid atrial fibrillation I48.91 Acute systolic CHF (congestive heart failure) I50.21 Hypomagnesemia E83.42 COPD (chronic obstructive pulmonary disease) J44.9 Foot drop, bilateral M21.371; M21.372 Hyperlipidemia E78.5 HTN (hypertension) I10 Chronic radicular lumbar pain M54.16; G89.29 Restless leg syndrome G25.81 Urinary Incontinence R32 GERD (gastroesophageal reflux disease) K21.9 DMII (diabetes mellitus, type 2) E11.9 Morbid obesity with BMI of 50.0-59.9, adult E66.01; Z68.43 Hydroureteronephrosis N13.30 Enteritis K52.9 VIKKI (obstructive sleep apnea) G47.33 DVT prophylaxis Z29.9 Rhabdomyolysis due to COVID-19 U07.1; M62.82
[2021-07-10 07:43] LABS: BUN Creatinine Ratio 44.8 (10-20); Calcium 9.2 mg/dl (8.5-10.1); Creatinine Clr Calc Pharmacy 68.5 ml/min; Est GFR (African American) 69.6 ml/min; Magnesium 2.4 mg/dl (1.8-2.4); Potassium 4.3 mmol/L (3.5-5.1)
[2021-07-10 07:44] LABS: Phosphorus 3.8 mg/dl (2.5-4.9)
[2021-07-10] MEDS: ICU ELECTROLYTE REPLACEMENT PROTOCOL SCH ×2 (07:47→16:08)
[2021-07-10] MEDS: GABAPENTIN 250 MG/5 ML 470 ML BTL PO SCH ×2 (08:07→20:13)
[2021-07-10] MEDS: ENOXAPARIN INJ 60 MG/0.6 ML SYR SQ SCH ×2 (08:07→20:11)
[2021-07-10] MEDS: MULTI VIT W/MINERALS LIQUID 15 ML UDP NG SCH (08:08)
[2021-07-10] MEDS: ROSUVASTATIN CALCIUM 10 MG TAB PO SCH (08:09)
[2021-07-10] MEDS: INSULIN GLARGINE SOLOSTAR 100 UNITS/ML 3 ML PEN SC SCH (08:11)
[2021-07-10] MEDS: POTASSIUM CHLORIDE 20 MEQ/15 ML UDC GT SCH ×2 (08:23→16:08)
[2021-07-10] MEDS: PANTOprazole 40 MG in SYRINGE 0 ML IV SCH ×2 (08:23→20:12)
[2021-07-10] MEDS: FUROSEMIDE 40 MG/4 ML VIAL IV SCH ×2 (08:23→20:13)
[2021-07-10] MEDS: dexAMETHasone 20 MG in SODIUM CHLORIDE 0.9% 50 ML IV SCH (09:29)
[2021-07-10] MEDS: INSULIN HUMAN NPH SC SCH (09:30)
--- NOTE | 2021-07-10 11:10 | Critical Care Progress Note ---
Date of Service July 10, 2021 Assessment & Plan (1) Stress-induced cardiomyopathy: (2) Rapid atrial fibrillation: (3) VIKKI (obstructive sleep apnea): (4) COVID-19: (5) Acute respiratory failure with hypoxia and hypercapnia: (6) Pneumonia due to COVID-19 virus: (7) Morbid obesity with BMI of 50.0-59.9, adult: Plan: Impression: This is a 70-year-old female that received 1 dose of Pfizer vaccination 06/04/2021. She developed signs of congestion and fever and presented to PCP June 23, 2021 and was started on Augmentin. Over the next several days she worsened and presented the emergency room 06/29/2021 where she reported that she had been found positive for Covid and was feeling worse. She was started on remdesivir, dexamethasone and supplemental oxygen. The next day she was started on baricitinib. Patient was intubated 07/04/21 following which patient had ST elevation and was taken to [facility]. Clean coronaries with possible stress-induced cardiomyopathy. EF was 30% at that time 24-hour events: Continued on low-dose dopamine. Not much progress regarding ventilatory settings. Plateau pressures remain upper limits of normal and we decreased her tidal volumes down to about 5 cc/kg ideal body weight. Recommendations: 1. Neurologic: Continue sedation as above patient continues to require deep sedation. No improvement with neuromuscular blockade so I have discontinued. Continue Neurontin. Hold pramipexole. 2. Cardiovascular: Decreased ejection fraction with probable Takotsubo cardiomyopathy. Became bradycardic with Romero-Synephrine and significantly hypertensive with norepinephrine, currently tolerating low-dose dopamine without significant bradycardia or hypertensive swings. Coronaries were clean on cardiac catheterization. Did have episode of atrial fibrillation with rapid ventricular response. Now off amiodarone and in sinus rhythm. Additional management per cardiology. Last BMP was 1112 on 07/02/2021. Continue negative balance fluid status as tolerated. She is 9 liters negative since presentation. 3. Pulmonary: CT angiogram showed diffuse groundglass opacities with no evidence of pulmonary embolism or vascular filling defects. Day #7 mechanical ventilation. Current vent settings: AC 20/350/14/0.8 with Pplat 31 and ABG 7.40/58/56 with P/F of 70 which is stable and poor compliance. Patient has not responded to interventions such as neuromuscular blockade or proning so we will avoid these interventions in the future. We have initiated high-dose steroids (20 mg a day for 5 days followed by 10 mg a day for 5 days) based on Dex ARDS late-phase protocol. She is not a candidate for ECMO given her body mass index of 48. There are no additional rescue therapies available for the patient at the current time. Her current vent settings preclude tracheostomy. She appears to be clinically stagnant to slightly worse today. See comments below regarding CODE STATUS 4. GI: Continue tube feeding. May require long-term enteric access 5. Renal: Acid-base status and electrolytes are stable. Hold diuresis given her hemodynamic instability 6. Endocrine: Glycemic control per protocol. 7. Heme-onc: No active issues. DVT prophylaxis with enoxaparin 60 mg subcutaneously every 12 hours. 8. ID: White count normal. No fever. Procalcitonin 0.07 on 07/02. Blood cultures are negative x2. Respiratory culture not yet collected --Prophylaxis VTE: enoxaparin 60 mg subcutaneously twice daily GI: Pantoprazole 40 mg twice daily via OG tube Lines: Right IJ, left radial, [place] Patient remains critically ill with multiorgan system dysfunction. Discussed with respiratory therapy and bedside critical care nurse. Her prognosis is unclear. Updated son Leana, daughters again did not answer phone. This is the third day in a row that I been unable to get either of the daughters to answer the phone. Leana has also been trying to update them but states he has had difficulty getting in touch with him as well. He states that he is in emergency contact and he does have authorization to make medical decisions for this patient. In light of the fact that we have been unable to get a hold of the primary contacts and he is listed as HIPAA contacted and emergency contact. We will go by his proxy decision making. He is well versed in medical processes and states that he wishes his mother to have 1 cycle of CPR and potential 1 defibrillation and then no additional efforts at I would agree as I do not think additional ACLS will offer a clinical benefit in this patient. Depending on her clinical course, may be appropriate to engage palliative care over the next several days if she continues to clinically worsen A total of 48 min CC time managing this patient including end of life issues. Discussed with critical care nurse at bedside. Admission and Anticipated Discharge Date Admission Date: June 29, 2021 Subjective Intubated and sedated Review of Systems Review of Systems: Unobtainable due to endotracheal tube Physical Exam Constitutional: + mechanically ventilated Neck: trachea midline, no thyromegaly Respiratory: normal respiratory effort, lungs clear to auscultation Cardiovascular: RRR, no murmur, no edema Gastrointestinal (Abdomen): normal bowel sounds, soft, nontender, no hepatosplenomegaly Musculoskeletal: Extremities: extremities normal to inspection Skin: no rashes, warm and dry Lymphatic: no cervical lymphadenopathy Results & Data Results & Data ([facility]) Vital Signs (Past 12 Hours) Vital Signs Temp Pulse Resp BP Pulse Ox 07/10/21 10:53 66 20 89 L 07/10/21 08:30 60 20 88 L 07/10/21 08:04 60 20 90 07/10/21 08:00 37.6 C H 60 20 89 L 07/10/21 07:30 60 20 91 07/10/21 07:00 61 20 89 L 07/10/21 06:00 37.7 C H 63 20 91 07/10/21 05:00 64 20 93 07/10/21 04:42 65 22 92 07/10/21 04:00 64 20 118/65 92 07/10/21 03:00 64 20 92 07/10/21 02:30 63 20 91 07/10/21 02:00 63 20 91 07/10/21 01:30 65 20 92 07/10/21 01:00 78 20 91 07/10/21 00:30 65 20 89 L 07/10/21 00:00 37.3 C 64 20 118/51 L 90 07/09/21 23:30 65 20 90 Critical Care Results & Data Vital Signs (Past 12 Hours) Vital Signs Temp Pulse Resp BP Pulse Ox 07/10/21 10:53 66 20 89 L 07/10/21 08:30 60 20 88 L 07/10/21 08:04 60 20 90 07/10/21 08:00 37.6 C H 60 20 89 L 07/10/21 07:30 60 20 91 07/10/21 07:00 61 20 89 L 07/10/21 06:00 37.7 C H 63 20 91 07/10/21 05:00 64 20 93 07/10/21 04:42 65 22 92 07/10/21 04:00 64 20 118/65 92 07/10/21 03:00 64 20 92 07/10/21 02:30 63 20 91 07/10/21 02:00 63 20 91 07/10/21 01:30 65 20 92 07/10/21 01:00 78 20 91 07/10/21 00:30 65 20 89 L 07/10/21 00:00 37.3 C 64 20 118/51 L 90 07/09/21 23:30 65 20 90 Lab & Micro Results (Past 24 Hours) RBC 4.12 M/uL (4.2-5.4) L 07/10/21 WBC 13.28 K/uL (4.8-10.8) H 07/10/21 Hgb 12.8 g/dL (12.0-16.0) 07/10/21 Hct 40.2 % (37-47) 07/10/21 MCV 97.6 fL (80-100) 07/10/21 MCH 31.1 pg (25-34) 07/10/21 MCHC 31.8 g/dL (32-36) L 07/10/21 RDW Standard Deviation 47.7 fL (36.4-46.3) H 07/10/21 RDW Coefficient of Variation 13.4 % (11.5-14.5) 07/10/21 Plt Count 416 K/uL (130-400) H 07/10/21 MPV 9.9 fL (7.4-10.4) 07/10/21 Neutrophils (%) (Auto) 83.0 % 07/10/21 Lymphocytes (%) (Auto) 10.0 % 07/10/21 Monocytes # (Auto) 0.86 K/uL (0.11-0.59) H 07/10/21 Eosinophils # (Auto) 0.00 K/uL (0-0.5) 07/10/21 Immature Granulocyte % (Auto) 0.4 % 07/10/21 Neutrophils # (Auto) 11.03 K/uL (1.4-6.5) H 07/10/21 Lymphocytes # (Auto) 1.33 K/uL (1.2-3.4) 07/10/21 Monocytes # (Auto) 0.86 K/uL (0.11-0.59) H 07/10/21 Eosinophils # (Auto) 0.00 K/uL (0-0.5) 07/10/21 Basophils # (Auto) 0.01 K/uL (0-0.2) 07/10/21 Immature Granulocyte # (Auto) 0.05 K/uL (0.00-0.02) H 07/10/21 Na 139 mmol/L (136-145) 07/10/21 K 4.3 mmol/L (3.5-5.1) 07/10/21 Cl 100 mmol/L (98-107) 07/10/21 CO2 32 mmol/L (21-32) 07/10/21 Anion Gap 7.0 (3-11) 07/10/21 BUN 44 mg/dl (7-18) H 07/10/21 Creatinine 0.97 mg/dl (0.6-1.2) 07/10/21 Estimated GFR ( Amer) 69.6 ml/min 07/10/21 Estimated GFR (Non-Af Amer) 60.0 ml/min 07/10/21 BUN/Creatinine Ratio 44.8 (10-20) H 07/10/21 Glu 134 mg/dl (70-99) H 07/10/21 Ca 9.2 mg/dl (8.5-10.1) 07/10/21 Phosphorus Level 3.8 mg/dl (2.5-4.9) 07/10/21 Mg 2.4 mg/dl (1.8-2.4) 07/10/21 06:48 07/10/21 Calcium Level 9.2 mg/dl (8.5-10.1) 07/10/21 06:48 07/10/21 Claude Test NA 07/10/21 04:57 07/10/21 Microbiology 07/09/21 16:20 Gram Stain - Final Sputum,Vent Suction Sputum Culture - Preliminary Pin-point growth present, reincubating. Diagnostic Findings (Past 24 Hours) Chest X-Ray 07/10/21 07:00 XR chest 1V portable HISTORY: 70 years-old Female f/u acute shortness of breath COMPARISON: Chest radiograph 07/09/2021 CTA chest 07/06/2021. TECHNIQUE: Portable AP view the chest FINDINGS: Cardiac silhouette is enlarged, unchanged. Endotracheal tube overlies the midline, 2.9 cm superior to the lee ann. Right IJ central venous catheter distal tip terminates in the expected location of the mid SVC. Enteric tube courses into the stomach calcified the [id number]. No pneumothorax. Small pleural effusions. Interstitial coarsening with multifocal bilateral mid to lower lung zone predominant airspace opacities redemonstrated, generally unchanged. Degenerative changes of the spine and right shoulder. Surgical anchors of the right proximal humerus with reverse left shoulder total joint arthroplasty. IMPRESSION: 1. Satisfactory positioning of life-support lines and tubes. 2. Extensive bilateral airspace opacities suggestive of viral pneumonia are generally unchanged. 3. No pneumothorax. ACT 112: Negative or not required by law. The above report was generated using voice recognition software. It may contain grammatical, syntax or spelling errors. Electronically signed by: Emerson Garner M.D. 07/10/2021 7:30 AM I & O Totals 24 Hours 07/09/21 07/10/21 07/11/21 06:59 06:59 06:59 Intake Total 1589.071 / 2746.519 9301.817 / 2374.817 321.033 / 321.033 Output Total 2830 / 2830 3450 / 3450 295 / 295 Balance -1240.929 / -1240.929 -1075.183 / -1075.183 26.033 / 26.033 Cumulative 06/29/21 12:00 thru 07/10/21 10:16 Intake Total 73076.889 Output Total 02662 Balance -9650.111 RT Ventilator Mngmt (Last Documented) Ventilator Ordered Settings Ventilator Support Mode Assist Control 07/10/21 10:53 Respiratory Rate 20 07/10/21 10:53 Ventilator Tidal Volume 350 07/10/21 10:53 Setting Minute Ventilation 7 07/10/21 10:53 Positive End Expiratory 14 07/10/21 10:53 Pressure Fraction of Inspired Oxygen 100 07/10/21 10:53 Machine Comment DECREASED AT THIS TIME TO 80% 07/09/21 14:34 FIO2 Ventilator - PT Measurements Respiratory Rate 20 Exhaled Tidal Volume 350 Minute Ventilation 7 Peak Inspiratory Airway 32 Pressure Plateau Pressure 29 Respiratory Cycle Inspiratory: 1:2.6 Expiratory Ratio Inspiratory Phase Time 0.9 End-Tidal CO2 36 Static Lung Compliance 23.33 Dynamic Lung Compliance 19.44 Normal Static Lung Compliance 45.00 Patient Measurements Comment FiO2 decreased to 80 Coding Level of Care Code Critical Care 1st 30-74 mins Diagnoses Stress-induced cardiomyopathy I51.81 Rapid atrial fibrillation I48.91 VIKKI (obstructive sleep apnea) G47.33 COVID-19 U07.1 Acute respiratory failure with hypoxia and hypercapnia J96.01; J96.02 Pneumonia due to COVID-19 virus U07.1; J12.82 Morbid obesity with BMI of 50.0-59.9, adult E66.01; Z68.43
--- NOTE | 2021-07-10 11:26 | Pharmacy Report ---
Pharmacy Glycemic Short Note 2 - Date of Service July 10, 2021 - Glycemic Short BSG Results (Last 24 hours): 07/09/21 07/09/21 07/09/21 11:30 15:43 21:02 Glucose POC Glucose 163 H 141 H POC Glucose (other) 206 H 07/10/21 07/10/21 07/10/21 00:14 03:57 06:48 Glucose 134 H POC Glucose 131 H 136 H POC Glucose (other) 07/10/21 08:04 Glucose POC Glucose 124 H POC Glucose (other) OUTPATIENT ANTIDIABETIC REGIMEN: * None * A1c 6.4% 09/25/20, updated A1c not ordered, as patient has been on high dose IV steroids x 6 days ASSESSMENT: 07/10 * BSGs reasonably well-controlled on current regimen * Dexamethasone increased to 20 mg IV starting yesterday - continue NPH 60 units * Continues on Peptamen intense VHP at low rate * Remains intubated and sedated, also on low-dose dopamine * Do not anticipate any changes to glycemic regimen today 07/08 * Patient continues to be intubated/sedated, plan to wean paralytics, phenylephrine currently weaned off. * Day #10 of dex 6 mg, discussed with sap technical architect- he will consider late ARDs protocol vs. stopping steroids, will need adjustments to regimen tomorrow morning with steroid changes * BSGS 146-168 mg/dL yesterday, will continue same regimen today, 25 units of lantus/60 units of NPH with dexamethasone. Patient has not required any correctional doses today, [facility] need [facility] monitor for novolog changes. 07/05 * 70 year old female, intubated/sedated, s/p emergent cardiac cath yesterday, COVID19 pneumonia, hyperglycemic d/t IV Steroids * Patient started on insulin drip last night for BSG 441mg/dl, running 4.8-7 units/hr over past 14 hours, currently at 5.6units/hr * Started NPH this morning when pharmacy consulted to cover steroid induced hyperglycemia PLAN FOR INPATIENT GLYCEMIC CONTROL: * Basal insulin * 25 units QAM * NPH 60 units SQ daily with IV dexamethasone * Correctional Insulin: Novolog Correction per scale q4 Goal Range: Low 110 mg/dL - High 140 mg/dL Correction Factor: 10 mg/dL/unit * Prandial insulin: Per carb ratio of 1 unit per 4 grams CHO consumed* to cover tube feeds
[2021-07-10] MEDS: MIDAZOLAM HCL 125 MG/250 ML BAG IV SCH (13:40)
[2021-07-11 02:54] LABS: iSTAT Art Bld Gas pCO2 Correct 55 mmHg (35-46); iSTAT Art Bld Gas pH Corrected 7.408 (7.35-7.45); iSTAT Arterial Blood Gas HCO3 35 meg/L (19-24); iSTAT Arterial Blood Gas pCO2 54 mmHg (35-46); iSTAT Arterial Blood Gas pH 7.42 (7.35-7.45); iSTAT Arterial Blood Gas pO2 59 mmHg (80-95); iSTAT Arterial Blood Gas pO2 C 62; iSTAT Carbon Dioxide 36 mmol/L (24-31); iSTAT FiO2 100 %; iSTAT Hematocrit 40 % (37-47); iSTAT Hemoglobin 13.6 g/dl (12.0-16.0); iSTAT Potassium 4.5 mmol/L (3.3-5.0); iSTAT Site Art Line; iSTAT Sodium 140 mmol/L (135-144)
[2021-07-11] MEDS: DOPamine / D5W 400 MG/250 ML BAG IV SCH ×7 (02:57→21:06)
[2021-07-11] MEDS: ARTIFICIAL TEARS OP OINT 3.5 GM TUBE OP SCH ×6 (02:58→20:33)
[2021-07-11] MEDS: TUBE FEEDING WATER FLUSH OG SCH ×5 (04:10→20:29)
[2021-07-11] MEDS: INSULIN ASPART 100 UNITS/ML 3 ML PEN SC SCH ×5 (04:10→20:29)
[2021-07-11] MEDS: ICU ELECTROLYTE REPLACEMENT PROTOCOL SCH ×2 (06:19→17:02)
[2021-07-11 06:26] LABS: Basophils # (auto) 0.01 K/uL (0-0.2); Basophils % (auto) 0.1 %; Immature Granulocytes # (auto) 0.07 K/uL (0.00-0.02); Immature Granulocytes % (auto) 0.4 %; Lymphocytes % (auto) 8.8 %; Mean Corpuscular Hemoglobin 31.5 pg (25-34); Mean Corpuscular Hgb Conc 31.7 g/dL (32-36); Mean Corpuscular Volume 99.3 fL (80-100); Mean Platelet Volume 9.9 fL (7.4-10.4); Monocytes # (auto) 1.19 K/uL (0.11-0.59); Monocytes % (auto) 7.5 %; Neutrophils # (auto) 13.23 K/uL (1.4-6.5); Neutrophils % (auto) 83.2 %; Platelet Count 431 K/uL (130-400); RDW Coefficient of Variation 13.5 % (11.5-14.5); RDW Standard Deviation 48.9 fL (36.4-46.3); Red Blood Count 4.13 M/uL (4.2-5.4)
[2021-07-11 06:54] LABS: BUN Creatinine Ratio 51.4 (10-20); Calcium 9.9 mg/dl (8.5-10.1); Creatinine Clr Calc Pharmacy 63.9 ml/min; Est GFR (African American) 63.9 ml/min; Est GFR (Non-African American) 55.2 ml/min; Magnesium 2.7 mg/dl (1.8-2.4); Phosphorus 3.9 mg/dl (2.5-4.9); Potassium 4.5 mmol/L (3.5-5.1)
--- NOTE | 2021-07-11 07:36 | XRay Report ---
XR chest 1V portable CLINICAL HISTORY: resp failure. Status post intubation COMPARISON STUDY: 07/10/2021 TECHNIQUE: 1 view of the chest FINDINGS: Single frontal view of the chest demonstrates the cardiomediastinal silhouette to be within normal li mits. Tubes and catheters appear unchanged. However, there is radiolucency seen adjacent to the left heart border suspicious for interval development of pneumopericardium. There is also evidence for pne umomediastinum. Air extends into the neck as well. Diffuse interstitial and alveolar opacities are ag ain seen bilaterally. There is no evidence for pleural effusion. There is no evidence for vascular co ngestion. There is no acute osseous pathology. IMPRESSION: Diffuse interstitial and alveolar opacities are again seen bilaterally with interval deve lopment of pneumomediastinum, pneumopericardium and subcutaneous emphysema extending into the soft ti ssues of the neck. ACT 112: Negative or not required by law. Electronically signed by: Eloy Valero M.D. 07/11/2021 7:35 AM
[2021-07-11] MEDS: MIDAZOLAM HCL 125 MG/250 ML BAG IV SCH (08:09)
[2021-07-11] MEDS: dexAMETHasone 20 MG in SODIUM CHLORIDE 0.9% 50 ML IV SCH (08:09)
[2021-07-11] MEDS: GABAPENTIN 250 MG/5 ML 470 ML BTL PO SCH ×2 (08:09→20:38)
[2021-07-11] MEDS: ENOXAPARIN INJ 60 MG/0.6 ML SYR SQ SCH ×2 (08:10→20:31)
[2021-07-11] MEDS: POTASSIUM CHLORIDE 20 MEQ/15 ML UDC GT SCH ×2 (08:10→16:16)
[2021-07-11] MEDS: INSULIN GLARGINE SOLOSTAR 100 UNITS/ML 3 ML PEN SC SCH (08:11)
[2021-07-11] MEDS: INSULIN HUMAN NPH SC SCH (08:15)
[2021-07-11] MEDS: PANTOprazole 40 MG in SYRINGE 0 ML IV SCH ×2 (08:16→20:33)
[2021-07-11] MEDS: ROSUVASTATIN CALCIUM 10 MG TAB PO SCH (08:17)
[2021-07-11] MEDS: MULTI VIT W/MINERALS LIQUID 15 ML UDP NG SCH (08:17)
--- NOTE | 2021-07-11 08:53 | XRay Report ---
SINGLE VIEW CHEST CLINICAL HISTORY: Covid pneumonia. FINDINGS: An AP, portable, upright chest radiograph is compared to study performed earlier the same d ay 07/11/2021 and correlated with chest CT dated 07/06/2021. The examination is degraded by portable technique and patient rotation. A right internal jugular central venous catheter, and endotracheal tu be, and an enteric tube are unchanged in position. The heart appears enlarged. Pneumomediastinum pers ists. Multifocal airspace consolidation is again seen throughout both lungs. This is unchanged from wilder cowart's earlier examination. No large pleural effusion is identified. Suspect a small left apical pneu mothorax. No right-sided pneumothorax is identified. The skeletal structures are osteopenic. The bony thorax is grossly intact. A left shoulder arthroplasty is in place. Subcutaneous emphysema is seen i n the lower neck. IMPRESSION: 1. Suspect a small left apical pneumothorax. 2. Subcutaneous emphysema in the lower neck and pneumomediastinum persist 3. Stable lines and tubes. 4. Multifocal airspace consolidation has not appreciably changed from today's earlier examination. ACT 112: Negative or not required by law. Electronically signed by: Dario Craven M.D. 07/11/2021 8:52 AM
[2021-07-11] MEDS: FUROSEMIDE 40 MG/4 ML VIAL IV SCH (09:28)
--- NOTE | 2021-07-11 10:03 | Critical Care Progress Note ---
Date of Service July 11, 2021 Assessment & Plan (1) Stress-induced cardiomyopathy: (2) Rapid atrial fibrillation: (3) VIKKI (obstructive sleep apnea): (4) COVID-19: (5) Acute respiratory failure with hypoxia and hypercapnia: (6) Pneumonia due to COVID-19 virus: (7) Morbid obesity with BMI of 50.0-59.9, adult: Plan: Impression: This is a 70-year-old female that received 1 dose of Pfizer vaccination 06/04/2021. She developed signs of congestion and fever and presented to PCP June 23, 2021 and was started on Augmentin. Over the next several days she worsened and presented the emergency room 06/29/2021 where she reported that she had been found positive for Covid and was feeling worse. She was started on remdesivir, dexamethasone and supplemental oxygen. The next day she was started on baricitinib. Patient was intubated 07/04/21 following which patient had ST elevation and was taken to Documentation Manager. Clean coronaries with possible stress-induced cardiomyopathy. EF was 30% at that time 24-hour events: Patient has developed subcutaneous emphysema and has pneumomediastinum on chest x-ray. Follow-up chest x-ray demonstrated a small apical pneumothorax on the left. She is on max ventilatory settings and her pressor requirements have increased. Recommendations: 1. Neurologic: Continue sedation as above patient continues to require deep sedation. No improvement with neuromuscular blockade so I have discontinued. Continue Neurontin. Hold pramipexole. 2. Cardiovascular: Decreased ejection fraction with probable Takotsubo cardiomyopathy. Became bradycardic with Romero-Synephrine and significantly hypertensive with norepinephrine, currently tolerating low-dose dopamine without significant bradycardia or hypertensive swings. Coronaries were clean on cardiac catheterization. Did have episode of atrial fibrillation with rapid ventricular response. Now off amiodarone and in sinus rhythm. Additional management per cardiology. Last BMP was 1112 on 07/02/2021. Holding Lasix given hemodynamic instability. 3. Pulmonary: CT angiogram showed diffuse groundglass opacities with no evidence of pulmonary embolism or vascular filling defects. Day #8 mechanical ventilation. Current vent settings: AC 17/350/14/1.0 with Pplat 27 and ABG 7.42/54/59 with P/F of 59 which is worse and poor compliance. Patient has not responded to interventions such as neuromuscular blockade or proning so we will avoid these interventions in the future. We have initiated high-dose steroids (20 mg a day for 5 days followed by 10 mg a day for 5 days) based on Dex ARDS late-phase protocol. She is not a candidate for ECMO given her body mass index of 48. She has now developed a small pneumothorax and pneumomediastinum. Its not significant enough to require chest tube currently however certainly could progress given her high ventilatory pressures and poor lung compliance. We will plan on repeating her chest x-ray this afternoon discussed with the son. He agrees that compressions were additional ACLS interventions are unlikely to be beneficial so we will change her CODE STATUS to DO NOT resuscitate. Do not think the patient would respond favorably to inhaled prostacyclin given her hemodynamic instability. Her current vent settings preclude tracheostomy. She appears to be declining. See comments below regarding CODE STATUS 4. GI: Continue tube feeding. May require long-term enteric access 5. Renal: Acid-base status and electrolytes are stable. Discontinue diuresis given her hemodynamic instability 6. Endocrine: Glycemic control per protocol. 7. Heme-onc: No active issues. DVT prophylaxis with enoxaparin 60 mg subcutaneously every 12 hours. 8. ID: White count increasing. Her fever curve is slightly increasing. Procalcitonin 0.07 on 07/02. Blood cultures are negative x2 on presentation Respiratory culture with pinpoint growth. Recheck blood cultures and urine culture and procalcitonin. Initiate broad-spectrum antibiotics with cefepime and vancomycin. Check MRSA nasal swab. --Prophylaxis VTE: enoxaparin 60 mg subcutaneously twice daily GI: Pantoprazole 40 mg twice daily via OG tube Lines: Right IJ, left radial, [place] Patient remains critically ill with multiorgan system dysfunction. Discussed with respiratory therapy and bedside critical care nurse. Her prognosis is poor and the patient is declining clinically. Updated son Leana, daughters again did not answer phone. Have not been able to reach the daughters on the multiple days. Leana has also been trying to update them but states he has had difficulty getting in touch with him as well. He states that he is in emergency contact and he does have authorization to make medical decisions for this patient. In light of the fact that we have been unable to get a hold of the primary contacts and he is listed as HIPAA contacted and emergency contact, we will go by his proxy decision making. He understands though poor functional prognosis at this point time and is in agreement that CPR and ACLS are unlikely to offer his mother chance of meaningful recovery. We distress changing CODE STATUS to DNR which she is agreeable to. A total of 52 min CC time managing this patient including end of life issues. Discussed with critical care nurse at bedside. Admission and Anticipated Discharge Date Admission Date: June 29, 2021 Subjective Intubated and sedated Review of Systems Review of Systems: Unobtainable due to endotracheal tube Physical Exam Constitutional: + mechanically ventilated Neck: trachea midline, no thyromegaly Slight crepitus in the neck Respiratory: normal respiratory effort, lungs clear to auscultation Cardiovascular: RRR, no murmur, no edema Gastrointestinal (Abdomen): normal bowel sounds, soft, nontender, no hepatosplenomegaly Musculoskeletal: Extremities: extremities normal to inspection Skin: no rashes, warm and dry Lymphatic: no cervical lymphadenopathy Results & Data Results & Data ([facility]) Vital Signs (Past 12 Hours) Vital Signs Temp Pulse Resp BP Pulse Ox 07/11/21 09:00 126 H 17 88 L 07/11/21 08:30 111 H 18 89 L 07/11/21 08:00 37.9 C H 85 17 90 07/11/21 07:30 83 20 90 07/11/21 07:00 83 17 90 07/11/21 06:30 83 18 89 L 07/11/21 06:00 83 19 89 L 07/11/21 05:45 81 22 91 07/11/21 05:30 81 17 91 07/11/21 05:00 82 19 91 07/11/21 04:30 82 18 91 07/11/21 04:00 37 C 82 20 110/48 L 91 07/11/21 03:30 82 17 91 07/11/21 03:00 82 19 91 07/11/21 02:55 83 22 93 07/11/21 02:30 84 17 91 07/11/21 02:00 82 17 91 07/11/21 01:30 84 18 91 07/11/21 01:00 83 20 91 07/11/21 00:30 84 20 91 07/11/21 00:00 83 20 98/51 L 91 07/10/21 23:30 84 20 91 07/10/21 23:00 85 19 91 07/10/21 22:35 85 24 89 L 07/10/21 22:30 86 17 90 Critical Care Results & Data Vital Signs (Past 12 Hours) Vital Signs Temp Pulse Resp BP Pulse Ox 07/11/21 09:00 126 H 17 88 L 07/11/21 08:30 111 H 18 89 L 07/11/21 08:00 37.9 C H 85 17 90 07/11/21 07:30 83 20 90 07/11/21 07:00 83 17 90 07/11/21 06:30 83 18 89 L 07/11/21 06:00 83 19 89 L 07/11/21 05:45 81 22 91 07/11/21 05:30 81 17 91 07/11/21 05:00 82 19 91 07/11/21 04:30 82 18 91 07/11/21 04:00 37 C 82 20 110/48 L 91 07/11/21 03:30 82 17 91 07/11/21 03:00 82 19 91 07/11/21 02:55 83 22 93 07/11/21 02:30 84 17 91 07/11/21 02:00 82 17 91 07/11/21 01:30 84 18 91 07/11/21 01:00 83 20 91 07/11/21 00:30 84 20 91 07/11/21 00:00 83 20 98/51 L 91 07/10/21 23:30 84 20 91 07/10/21 23:00 85 19 91 07/10/21 22:35 85 24 89 L 07/10/21 22:30 86 17 90 Lab & Micro Results (Past 24 Hours) RBC 4.13 M/uL (4.2-5.4) L 07/11/21 WBC 15.90 K/uL (4.8-10.8) H 07/11/21 Hgb 13.0 g/dL (12.0-16.0) 07/11/21 Hct 41.0 % (37-47) 07/11/21 MCV 99.3 fL (80-100) 07/11/21 MCH 31.5 pg (25-34) 07/11/21 MCHC 31.7 g/dL (32-36) L 07/11/21 RDW Standard Deviation 48.9 fL (36.4-46.3) H 07/11/21 RDW Coefficient of Variation 13.5 % (11.5-14.5) 07/11/21 Plt Count 431 K/uL (130-400) H 07/11/21 MPV 9.9 fL (7.4-10.4) 07/11/21 Neutrophils (%) (Auto) 83.2 % 07/11/21 Lymphocytes (%) (Auto) 8.8 % 07/11/21 Monocytes # (Auto) 1.19 K/uL (0.11-0.59) H 07/11/21 Eosinophils # (Auto) 0.00 K/uL (0-0.5) 07/11/21 Immature Granulocyte % (Auto) 0.4 % 07/11/21 Neutrophils # (Auto) 13.23 K/uL (1.4-6.5) H 07/11/21 Lymphocytes # (Auto) 1.40 K/uL (1.2-3.4) 07/11/21 Monocytes # (Auto) 1.19 K/uL (0.11-0.59) H 07/11/21 Eosinophils # (Auto) 0.00 K/uL (0-0.5) 07/11/21 Basophils # (Auto) 0.01 K/uL (0-0.2) 07/11/21 Immature Granulocyte # (Auto) 0.07 K/uL (0.00-0.02) H 07/11/21 Na 136 mmol/L (136-145) 07/11/21 K 4.5 mmol/L (3.5-5.1) 07/11/21 Cl 99 mmol/L (98-107) 07/11/21 CO2 35 mmol/L (21-32) H 07/11/21 Anion Gap 2.0 (3-11) L 07/11/21 BUN 53 mg/dl (7-18) H 07/11/21 Creatinine 1.04 mg/dl (0.6-1.2) 07/11/21 Estimated GFR ( Amer) 63.9 ml/min 07/11/21 Estimated GFR (Non-Af Amer) 55.2 ml/min 07/11/21 BUN/Creatinine Ratio 51.4 (10-20) H 07/11/21 Glu 126 mg/dl (70-99) H 07/11/21 Ca 9.9 mg/dl (8.5-10.1) 07/11/21 Phosphorus Level 3.9 mg/dl (2.5-4.9) 07/11/21 Mg 2.7 mg/dl (1.8-2.4) H 07/11/21 05:24 07/11/21 Calcium Level 9.9 mg/dl (8.5-10.1) 07/11/21 05:24 07/11/21 Claude Test NA 07/11/21 02:37 07/11/21 Microbiology 07/09/21 16:20 Gram Stain - Final Sputum,Vent Suction Sputum Culture - Preliminary Pin-point growth present, reincubating. Diagnostic Findings (Past 24 Hours) Chest X-Ray 07/11/21 07:00 XR chest 1V portable CLINICAL HISTORY: resp failure. Status post intubation COMPARISON STUDY: 07/10/2021 TECHNIQUE: 1 view of the chest FINDINGS: Single frontal view of the chest demonstrates the cardiomediastinal silhouette to be within normal limits. Tubes and catheters appear unchanged. However, there is radiolucency seen adjacent to the left heart border suspicious for interval development of pneumopericardium. There is also evidence for pneumomediastinum. Air extends into the neck as well. Diffuse interstitial and alveolar opacities are again seen bilaterally. There is no evidence for pleural effusion. There is no evidence for vascular congestion. There is no acute osseous pathology. IMPRESSION: Diffuse interstitial and alveolar opacities are again seen bilaterally with interval development of pneumomediastinum, pneumopericardium and subcutaneous emphysema extending into the soft tissues of the neck. ACT 112: Negative or not required by law. Electronically signed by: Eloy Valero M.D. 07/11/2021 7:35 AM Chest X-Ray 07/11/21 08:13 SINGLE VIEW CHEST CLINICAL HISTORY: Covid pneumonia. FINDINGS: An AP, portable, upright chest radiograph is compared to study performed earlier the same day 07/11/2021 and correlated with chest CT dated 07/06/2021. The examination is degraded by portable technique and patient rotation. A right internal jugular central venous catheter, and endotracheal tube, and an enteric tube are unchanged in position. The heart appears enlarged. Pneumomediastinum persists. Multifocal airspace consolidation is again seen throughout both lungs. This is unchanged from today's earlier examination. No large pleural effusion is identified. Suspect a small left apical pneumothorax. No right-sided pneumothorax is identified. The skeletal structures are osteopenic. The bony thorax is grossly intact. A left shoulder arthroplasty is in place. Subcutaneous emphysema is seen in the lower neck. IMPRESSION: 1. Suspect a small left apical pneumothorax. 2. Subcutaneous emphysema in the lower neck and pneumomediastinum persist 3. Stable lines and tubes. 4. Multifocal airspace consolidation has not appreciably changed from today's earlier examination. ACT 112: Negative or not required by law. Electronically signed by: Dario Craven M.D. 07/11/2021 8:52 AM I & O Totals 24 Hours 07/10/21 07/11/21 07/12/21 06:59 06:59 06:59 Intake Total 2374.817 / 2374.817 1679.883 / 1679.883 169.85 / 169.85 Output Total 3450 / 3450 2440 / 2440 250 / 250 Balance -1075.183 / -1075.183 -760.117 / -760.117 -80.15 / -80.15 Cumulative 06/29/21 12:00 thru 07/11/21 09:26 Intake Total 63292.589 Output Total 38272 Balance -76329.411 RT Ventilator Mngmt (Last Documented) Ventilator Ordered Settings Ventilator Support Mode Assist Control 07/11/21 08:00 Respiratory Rate 17 07/11/21 09:00 Ventilator Tidal Volume 350 07/11/21 08:00 Setting Minute Ventilation 6.5 07/11/21 05:45 Positive End Expiratory 14 07/11/21 08:00 Pressure Fraction of Inspired Oxygen 100 07/11/21 08:00 Machine Comment DECREASED AT THIS TIME TO 80% 07/09/21 14:34 FIO2 Ventilator - PT Measurements Respiratory Rate 17 Exhaled Tidal Volume 340 Minute Ventilation 6.5 Peak Inspiratory Airway 30 Pressure Plateau Pressure 27 Respiratory Cycle Inspiratory: 1:2.8 Expiratory Ratio Inspiratory Phase Time 0.8 End-Tidal CO2 36 Static Lung Compliance 26.15 Dynamic Lung Compliance 21.25 Normal Static Lung Compliance 46.00 Patient Measurements Comment FiO2 decreased to 80 Coding Level of Care Code Critical Care 1st 30-74 mins Diagnoses Stress-induced cardiomyopathy I51.81 Rapid atrial fibrillation I48.91 VIKKI (obstructive sleep apnea) G47.33 COVID-19 U07.1 Acute respiratory failure with hypoxia and hypercapnia J96.01; J96.02 Pneumonia due to COVID-19 virus U07.1; J12.82 Morbid obesity with BMI of 50.0-59.9, adult E66.01; Z68.43
[2021-07-11] MEDS ORDERED: VANCOMYCIN CONSULT ACTIVE PRN (10:34)
[2021-07-11] MEDS ORDERED: VANCOMYCIN HCL 2,500 MG in SODIUM CHLORIDE 0.9% 500 ML IV ONE (11:00)
--- NOTE | 2021-07-11 11:10 | Pharmacy Report ---
Pharmacy Abx Dose Short Note - Date of Service July 11, 2021 - Assessment & Plan Assessment * 70 year old F receiving VANCOMYCIN IV for treatment of HAP/VAP. Also receiving cefepime. Pharmacy to dose vancomycin * Patient admitted 06/29. Intubated 07/04 * 07/09 sputum cx obtained * + leukocytosis (however receiving high dose IV steroid), last procal negative on 07/02 - will repeat, nasal MRSA swab ordered (not yet collected) * Pressors appear to have been weaned off. Plan Vancomycin * Patient is a candidate for AUC guided therapy * 2500mg (~20mg/kg) loading dose x 1 * Maint dose 1250mg IV Q 24 hrs is predicted to produce AUC/DANISH 400-600 with anticipated risk of nephrotoxicity of ~8% * Will check level in 2-3 days if therapy is to continue Pharmacy will continue to follow and will adjust dose/frequency as necessary. Thank you.
[2021-07-11] MEDS: fentaNYL citrate 2,500 MCG/250 ML BAG IV SCH (11:25)
--- NOTE | 2021-07-11 11:47 | XRay Report ---
SINGLE VIEW CHEST CLINICAL HISTORY: Covid pneumonia. Hypoxia. FINDINGS: An AP, semierect, upright chest radiograph is compared to studies performed earlier the 07/11/2021 and correlated with chest CT dated 07/06/2021. The examination is degraded by portab le technique and patient rotation. There is also motion artifact. A right internal jugular central ve nous catheter, and endotracheal tube, and an enteric tube are unchanged in position. The heart appear s enlarged. Pneumomediastinum persists. Multifocal airspace consolidation is again seen throughout tasneem th lungs. This is unchanged from today's earlier examination. No large pleural effusion is identified . Suspect a small left apical pneumothorax. No right-sided pneumothorax is identified. The skeletal s tructures are osteopenic. The bony thorax is grossly intact. A left shoulder arthroplasty is in place . Subcutaneous emphysema is seen in the lower neck. IMPRESSION: 1. There is no enlarging pneumothorax. The suspected left apical pneumothorax seen on today's earlier examination is not well assessed due to motion artifact. 2. Stable lines and tubes. 3. Subcutaneous emphysema in the lower neck and pneumomediastinum persist 4. Multifocal airspace consolidation has not appreciably changed from today's earlier examination. ACT 112: Negative or not required by law. Electronically signed by: Dario Craven M.D. 07/11/2021 11:46 AM
--- NOTE | 2021-07-11 12:19 | Communication Note ---
Date of Service: July 11, 2021 Called back by nursing to reevaluate patient due to escalating pressors and hypoxemic respiratory failure. The patient's oxygen saturations are now in the mid 80% range despite maximal ventilatory settings. I advised respiratory therapy that given her pneumomediastinum and questionable small left pneumothorax I would not recommend going up on PEEP anymore. She is also had escalation in her pressor requirement and is now up to 12 mics per kilo per minute of dopamine. We repeated her x-ray. It does not demonstrate any significant progression of the pneumothorax however the lung opacities do appear to be getting worse. I believe the patient is clinically declining despite maximal resuscitative efforts. Again she is failed proning and is not an ECMO candidate. Would be reluctant to use inhaled epoprostenol given her hemodynamic instability. Her advanced age and comorbidities including heart failure portend a very poor prognosis. Per my prior discussion with the son today, she is DO NOT RESUSCITATE and will not receive CPR or additional cardioversion. We will continue to offer supportive care but may be reasonable to start discussion about transitioning to palliative care. The family dynamic is complicated. We will request palliative care consult Additional critical care time, 39 minutes Coding Level of Care Code Critical Care forrest addt'l 30 min
[2021-07-11] MEDS ORDERED: CEFEPIME 1,000 MG in SYRINGE 0 ML IV SCH (14:00)
[2021-07-11] MEDS: CEFEPIME 2,000 MG in SYRINGE 0 ML IV SCH ×2 (14:16→22:28)
[2021-07-11] MEDS: ACETAMINOPHEN 325 MG TAB PO PRN (16:22)
--- NOTE | 2021-07-11 16:23 | Hospitalist Progress Note ---
Date of Service July 11, 2021 Assessment & Plan (1) Acute respiratory failure with hypoxia and hypercapnia: Plan: due to severe COVID-19 pneumonia and acute HFrEF stress-induced cardiomyopathy. s/p intubation 07/04/21. patient not doing well, developed pneumomediastinum and pneumothorax cannot go up on PEEP, she is saturating in high 80's on 100% FiO2 she cannot be proned, she is not ECMO candidate she is declining despite all best efforts she is a DNR per family per Dr. Cooper, need to transition to palliative approach, palliative care consulted (2) Pneumonia due to COVID-19 virus: Plan: severe, with resulting acute hypoxic/hypercapneic respiratory failure and ARDS. progressive disease since admission s/p intubation with mech ventilation 07/04. Had received 5 days of baricitinib - d/c due to vent status. Decadron completed 10 day course, now on ARDS net dosing Completed 5-day course of Remdesivir. Acute systolic/diastolic CHF - cont to diurese status is getting worse, continue maximal supportive efforts but need to transition to palliative approach (3) Stress-induced cardiomyopathy: Plan: s/p heart alert with emergent cath by Dr Brown on 07/04 due to suspected STEMI. Developed ST segment elevations shortly after intubation. Cath - normal coronaries, global hypokinesis - EF 30%. HFrEF EF was normal just a few days prior. Takotsubo's. This was the cause of her abnormal EKG and ST segment elevations pre-cath. Continue diuresis. requiring Dopamine 12mcg/kg/min makes prognosis even worse (4) Rapid atrial fibrillation: Plan: 07/04 AM -- initially on cardizem infusion which was subsequently stopped prior to intubation & her heart alert. Ultimately underwent synchronized cardioversion which was not successful. She was loaded with amiodarone bolus, then amiodarone infusion. Converted back to NSR late 07/04. Amiodarone drip now off. Will remain on heparin drip. repeat CTA chest on 07/06 was negative for PE, only showed progression of ground glass opacities TSH noted to be slightly depressed and FT4 slightly high - simply repeat these in a few weeks. This is not c/w significant hyperthyroidism leading to a.fib. (5) Acute systolic CHF (congestive heart failure): Plan: echo earlier on admissio with preserved EF but IVC dilated. had been receiving once daily IV lasix. heart alert 07/04 - stress-induced cardiomyopathy with EF 30% based on cath showing normal coronaries. cont diuresis. continue Dopamine (6) Hypomagnesemia: Plan: replaced/resolved (7) COPD (chronic obstructive pulmonary disease): Plan: cont steroids/bronchodilators (8) Foot drop, bilateral: Plan: from lumbar radiculopathy - wears braces chronically at home (9) Hyperlipidemia: Plan: statin no CAD on cath (10) HTN (hypertension): Plan: now on pressors for BP support (11) Chronic radicular lumbar pain: Plan: typically on gabapentin baclofen and tramadol on hold (12) Urinary Incontinence: Plan: goodwin (13) GERD (gastroesophageal reflux disease): Plan: Continue IV PPI twice daily (14) DMII (diabetes mellitus, type 2): Plan: ICU protocol (15) Morbid obesity with BMI of 50.0-59.9, adult: Plan: BMI 51, this is a direct risk to her mortality with covid pneumonia (16) Hydroureteronephrosis: Plan: b/l, as seen on CT, not severe at this time nothing to do at this time (17) Enteritis: Plan: as seen on admission CT 2nd to COVID-19 infection no further diarrhea resolved clinically (18) VIKKI (obstructive sleep apnea): Plan: now vented (19) DVT prophylaxis: Plan: Lovenox 60 q12 (20) Restless leg syndrome: Plan: typically on pramipexole (21) Rhabdomyolysis due to COVID-19: Plan: resolved; most recent CPK wnl Plan: Dr. Cooper managing, updated family, very poor prognosis, needs palliative care Admission and Anticipated Discharge Date Admission Date: June 29, 2021 Subjective reviewed chart from past few days discussed with Dr. Cooper, he has contacted family, specifically the patient's son regarding her poor prognosis at this time her saturations are poor, in the 80's, cannot go up on PEEP due to pneumomediastinum and pneumothorax she is requiring Dopamine at 12mcg/kg/min she cannot be proned, not an ECMO candidate family has told Dr. Cooper that she should be a DNR likely need to change to palliative care approach Review of Systems Review of Systems: Unobtainable due to endotracheal tube Physical Exam Physical Exam: General: well developed, obese, sedated, mechanical ventilation Neck: supple, trachea midline, normal thyroid Lungs: symmetric chest movement, on ventilator Heart: regular S1 and S2, no murmur, peripheral pulses normal, capillary refill normal, no edema Abdomen: soft, NT, ND, + BS Extremities: normal in appearance, no cyanosis, no petechiae Neuro: sedated, CN II-XII intact, no focal deficits Skin: warm, dry, no rash, normal turgor Psych: sedated Results & Data Results & Data ([facility]) Vital Signs (Past 12 Hours) Vital Signs Temp Pulse Resp Pulse Ox 07/11/21 16:12 38.9 C H 07/11/21 15:30 101 H 16 88 L 07/11/21 15:00 123 H 15 87 L 07/11/21 14:50 102 H 28 H 87 L 07/11/21 14:30 117 H 16 86 L 07/11/21 14:00 109 H 16 87 L 07/11/21 13:30 117 H 15 86 L 07/11/21 13:00 101 H 17 84 L 07/11/21 12:30 108 H 15 85 L 07/11/21 12:15 122 H 15 86 L 07/11/21 12:00 115 H 16 86 L 07/11/21 11:45 107 H 15 86 L 07/11/21 11:30 114 H 17 87 L 07/11/21 11:15 122 H 16 87 L 07/11/21 11:10 115 H 26 H 88 L 07/11/21 11:00 109 H 17 87 L 07/11/21 10:45 103 H 17 87 L 07/11/21 10:30 118 H 18 87 L 07/11/21 10:00 120 H 16 87 L 07/11/21 09:30 134 H 16 89 L 07/11/21 09:00 126 H 17 88 L 07/11/21 08:30 111 H 18 89 L 07/11/21 08:00 37.9 C H 85 17 90 07/11/21 07:30 83 20 90 07/11/21 07:00 83 17 90 07/11/21 06:30 83 18 89 L 07/11/21 06:00 83 19 89 L 07/11/21 05:45 81 22 91 07/11/21 05:30 81 17 91 07/11/21 05:00 82 19 91 07/11/21 04:30 82 18 91 Laboratory Results Laboratory Results - last 24 hr 07/10/21 07/10/21 07/11/21 20:06 23:23 02:37 WBC RBC Hgb POC Hgb 13.6 Hct POC Hct 40 MCV MCH MCHC RDW Std Deviation RDW Coeff of Shant Plt Count MPV Immature Gran % (Auto) Neut % (Auto) Lymph % (Auto) [place] % (Auto) Eos % (Auto) Baso % (Auto) Neut # (Auto) Lymph # (Auto) [place] # (Auto) Eos # (Auto) Baso # (Auto) Immature Gran # (Auto) Sample Site Art Line POC pH 7.42 POC pCO2 54 H POC pO2 59 L POC HCO3 35 H POC Total CO2 36 H POC Base Excess 10.0 H ABG pH (Temp Correct) 7.408 ABG pCO2 (Temp Corrct 55 H POC ABG pO2 at Pt Temp 62 POC ABG O2 Sat 90.0 Claude Test NA O2 Delivery Device Ventilator POC O2 Rate 20 Minute Ventilation 7.1 POC FiO2 100 Tidal Volume 350 PEEP 14 POC Sodium 140 Sodium POC Potassium 4.5 Potassium Chloride Carbon Dioxide Anion Gap BUN Creatinine Est Cr Clr Drug Dosing Est GFR ( Amer) Est GFR (Non-Af Amer) BUN/Creatinine Ratio Glucose POC Glucose 159 H 140 H POC Glucose (other) Lactate Calcium Phosphorus Magnesium Procalcitonin Nasal Screen MRSA (PCR) 07/11/21 07/11/21 07/11/21 04:08 05:24 05:24 WBC 15.90 H RBC 4.13 L Hgb 13.0 POC Hgb Hct 41.0 POC Hct MCV 99.3 MCH 31.5 MCHC 31.7 L RDW Std Deviation 48.9 H RDW Coeff of Shant 13.5 Plt Count 431 H MPV 9.9 Immature Gran % (Auto) 0.4 Neut % (Auto) 83.2 Lymph % (Auto) 8.8 [place] % (Auto) 7.5 Eos % (Auto) 0.0 Baso % (Auto) 0.1 Neut # (Auto) 13.23 H Lymph # (Auto) 1.40 [place] # (Auto) 1.19 H Eos # (Auto) 0.00 Baso # (Auto) 0.01 Immature Gran # (Auto) 0.07 H Sample Site POC pH POC pCO2 POC pO2 POC HCO3 POC Total CO2 POC Base Excess ABG pH (Temp Correct) ABG pCO2 (Temp Corrct POC ABG pO2 at Pt Temp POC ABG O2 Sat Claude Test O2 Delivery Device POC O2 Rate Minute Ventilation POC FiO2 Tidal Volume PEEP POC Sodium Sodium 136 POC Potassium Potassium 4.5 Chloride 99 Carbon Dioxide 35 H Anion Gap 2.0 L BUN 53 H Creatinine 1.04 Est Cr Clr Drug Dosing 63.9 Est GFR ( Amer) 63.9 Est GFR (Non-Af Amer) 55.2 BUN/Creatinine Ratio 51.4 H Glucose 126 H POC Glucose 120 H POC Glucose (other) Lactate Calcium 9.9 Phosphorus 3.9 Magnesium 2.7 H Procalcitonin Nasal Screen MRSA (PCR) 07/11/21 07/11/21 07/11/21 08:23 11:08 11:33 WBC RBC Hgb POC Hgb Hct POC Hct MCV MCH MCHC RDW Std Deviation RDW Coeff of Shant Plt Count MPV Immature Gran % (Auto) Neut % (Auto) Lymph % (Auto) [place] % (Auto) Eos % (Auto) Baso % (Auto) Neut # (Auto) Lymph # (Auto) [place] # (Auto) Eos # (Auto) Baso # (Auto) Immature Gran # (Auto) Sample Site POC pH POC pCO2 POC pO2 POC HCO3 POC Total CO2 POC Base Excess ABG pH (Temp Correct) ABG pCO2 (Temp Corrct POC ABG pO2 at Pt Temp POC ABG O2 Sat Claude Test O2 Delivery Device POC O2 Rate Minute Ventilation POC FiO2 Tidal Volume PEEP POC Sodium Sodium POC Potassium Potassium Chloride Carbon Dioxide Anion Gap BUN Creatinine Est Cr Clr Drug Dosing Est GFR ( Amer) Est GFR (Non-Af Amer) BUN/Creatinine Ratio Glucose POC Glucose POC Glucose (other) 130 H 178 H Lactate Calcium Phosphorus Magnesium Procalcitonin 0.05 Nasal Screen MRSA (PCR) 07/11/21 07/11/21 07/11/21 11:34 11:45 16:08 WBC RBC Hgb POC Hgb Hct POC Hct MCV MCH MCHC RDW Std Deviation RDW Coeff of Shant Plt Count MPV Immature Gran % (Auto) Neut % (Auto) Lymph % (Auto) [place] % (Auto) Eos % (Auto) Baso % (Auto) Neut # (Auto) Lymph # (Auto) [place] # (Auto) Eos # (Auto) Baso # (Auto) Immature Gran # (Auto) Sample Site POC pH POC pCO2 POC pO2 POC HCO3 POC Total CO2 POC Base Excess ABG pH (Temp Correct) ABG pCO2 (Temp Corrct POC ABG pO2 at Pt Temp POC ABG O2 Sat Claude Test O2 Delivery Device POC O2 Rate Minute Ventilation POC FiO2 Tidal Volume PEEP POC Sodium Sodium POC Potassium Potassium Chloride Carbon Dioxide Anion Gap BUN Creatinine Est Cr Clr Drug Dosing Est GFR ( Amer) Est GFR (Non-Af Amer) BUN/Creatinine Ratio Glucose POC Glucose POC Glucose (other) 170 H Lactate 2.1 H* Calcium Phosphorus Magnesium Procalcitonin Nasal Screen MRSA (PCR) Negative Medications Administered Current Inpatient Medications Acetaminophen (Acetaminophen 325 Mg Tab) 650 mg PO Q4H PRN PRN Reason: Pain or Fever Stop: 07/29/21 23:07 Last Admin: 07/11/21 16:22 Dose: 650 mg Documented by: Albuterol (Albuterol 0.083% Nebu Soln 3 Ml Vial) 2.5 mg NEB Q4 PRN PRN Reason: shortness of breath Stop: 07/29/21 23:07 Dextrose (Dextrose 50% 50 Ml Syringe) 25 - 50 ml IV UD PRN; Protocol PRN Reason: Hypoglycemia Protocol Stop: 07/29/21 23:07 Enoxaparin Sodium (Enoxaparin Inj 60 Mg/0.6 Ml Syr) 60 mg SQ Q12 DEDE Stop: 08/05/21 20:59 Last Admin: 07/11/21 08:10 Dose: 60 mg Documented by: Fentanyl Citrate (Fentanyl Bolus From Bag) 50 mcg IV Q1H PRN PRN Reason: Pain or Agitation Stop: 07/18/21 16:20 Last Admin: 07/08/21 22:53 Dose: 50 mcg Documented by: Fluticasone Propionate (Fluticasone Propionate Na Spr 16 Gm Btl) 2 sprays FRANCISCO DAILY PRN PRN Reason: NASALL CONGESTION Stop: 07/29/21 23:07 Last Admin: 07/02/21 21:38 Dose: 2 sprays Documented by: Gabapentin (Gabapentin 250 Mg/5 Ml 470 Ml Btl) 300 mg PO BID DEDE Stop: 08/03/21 20:59 Last Admin: 07/11/21 08:09 Dose: 300 mg Documented by: Glucagon (Glucagon For Inj 1 Mg Vial) 1 mg SQ UD PRN; Protocol PRN Reason: Hypoglycemia Protocol Stop: 07/29/21 23:07 Glucose (Glucose 10 Tabs/Tube) 4 - 8 tabs PO UD PRN; Protocol PRN Reason: Hypoglycemia Protocol Stop: 07/29/21 23:07 Glucose (Glucose 40% Gel 15 Gm Tube) 15 - 30 gm PO UD PRN; Protocol PRN Reason: Hypoglycemia Protocol Stop: 07/29/21 23:07 Pantoprazole Sodium 40 mg/ (Syringe) 10 mls @ 5 mls/min IV BID DEDE Stop: 08/03/21 20:59 Last Admin: 07/11/21 08:16 Dose: 5 mls/min Documented by: Midazolam HCl (Versed) 125 mg in 250 mls @ 14 mls/hr IV .[id number] DEDE; Protocol Stop: 08/05/21 12:59 Last Titration: 07/11/21 18:51 Dose: 7 mg/hr, 14 mls/hr Documented by: Fentanyl Citrate (Fentanyl Citrate) 2,500 mcg in 250 mls @ 15 mls/hr IV .[id number] DEDE; Protocol Stop: 07/20/21 19:59 Last Titration: 07/11/21 18:51 Dose: 200 mcg/hr, 20 mls/hr Documented by: Dexamethasone 20 mg/ Sodium (Chloride) 55 mls @ 200 mls/hr IV DAILY DEDE Stop: 07/14/21 08:59 Last Infusion: 07/11/21 09:23 Dose: Infused Documented by: Dopamine HCl/Dextrose (Dopamine / D5w) 400 mg in 250 mls @ 54 mls/hr IV .[id number] DEDE; Protocol Stop: 08/07/21 18:29 Last Titration: 07/11/21 18:51 Dose: 12 mcg/kg/min, 54 mls/hr Documented by: Vancomycin HCl 1,250 mg/ (Sodium Chloride) 275 mls @ 200 mls/hr IV Q24H DEDE Stop: 07/19/21 11:59 Cefepime HCl 2,000 mg/ Syringe 20 mls @ 5 mls/min IV Q8H DEDE Stop: 07/18/21 13:59 Last Admin: 07/11/21 14:16 Dose: 5 mls/min Documented by: Insulin Aspart (Insulin Aspart 100 Units/Ml 3 Ml Pen) 0 units SC Q4 DEDE Stop: 07/29/21 23:07 Last Admin: 07/11/21 16:15 Dose: 3 units Documented by: Insulin Glargine (Insulin Glargine Solostar 100 Units/Ml 3 Ml Pen) 25 units SC QAM [facility]; Protocol Stop: 08/04/21 14:59 Last Admin: 07/11/21 08:11 Dose: 25 units Documented by: Insulin Human NPH (Insulin Human Nph) 60 units SC DAILY [facility]; Protocol Stop: 08/05/21 08:59 Last Admin: 07/11/21 08:15 Dose: 60 units Documented by: Miconazole Nitrate (Miconazole Nitrate Powder 43 Gm) 1 appln EXT PRN PRN PRN Reason: Affected Skin Folds Stop: 08/02/21 12:09 Midazolam HCl (Midazolam Bolus From Bag) 2 mg IV Q60M PRN PRN Reason: Sedation Stop: 08/05/21 12:48 Last Admin: 07/08/21 22:54 Dose: 2 mg Documented by: Miscellaneous (Carbohydrates For Hypoglycemia ) 15 - 30 gm PO UD PRN PRN Reason: Hypoglycemia Protocol Stop: 07/29/21 23:07 Miscellaneous (Icu Electrolyte Replacement Protocol) 1 ea N/A BID@06,18 [facility]; Protocol Stop: 07/12/21 05:59 Last Admin: 07/11/21 17:02 Dose: Not Given Documented by: Miscellaneous Information (Pharmacy Glycemic Mgmt Consult) 1 ea N/A UD PRN PRN Reason: Consult Stop: 08/03/21 22:01 Miscellaneous Information (Vancomycin Consult Active) 1 ea N/A UD PRN PRN Reason: Consult Stop: 08/10/21 10:33 Morphine Sulfate (Morphine Sulfate 2 Mg/Ml Carp) 2 mg IV Q4H PRN PRN Reason: Pain/respiratory distress Stop: 07/14/21 02:52 Last Admin: 07/03/21 21:38 Dose: 2 mg Documented by: Multi-Ingredient Cream (Artificial Tears Op Oint 3.5 Gm Tube) 1 appln OP Q4H DEDE Stop: 08/05/21 16:29 Last Admin: 07/11/21 17:03 Dose: Not Given Documented by: Multivitamins/Minerals (Multi Vit W/Minerals Liquid 15 Ml Udp) 15 ml NG QAM DEDE Stop: 08/08/21 08:59 Last Admin: 07/11/21 08:17 Dose: 15 ml Documented by: Nutritional Formula (Peptamen Intense Vhp 1.0 Rob 1,000 Ml Bag) 1,000 ml OG UD DEDE; Protocol Stop: 08/07/21 12:44 Polyethylene Glycol (Polyethylene (Miralax) 17 Gm Pack) 17 gm PO DAILY PRN PRN Reason: Constipation Stop: 07/29/21 23:07 Potassium Chloride (Potassium Chloride 20 Meq/15 Ml Udc) 10 meq GT BIDM DEDE Stop: 08/04/21 11:59 Last Admin: 07/11/21 16:16 Dose: 10 meq Documented by: Rosuvastatin Calcium (Rosuvastatin Calcium 10 Mg Tab) 10 mg PO QAM DEDE Stop: 07/30/21 08:59 Last Admin: 07/11/21 08:17 Dose: 10 mg Documented by: Sterile Water (Tube Feeding Water Flush) 30 ml OG Q4H DEDE Stop: 08/07/21 12:44 Last Admin: 07/11/21 16:14 Dose: 30 ml Documented by: PG Care Time/CCT Total # of Minutes Spent Total Time Spent with Patient: Total time spent is greater than 50% in coordination of care (as documented) at patient's floor/unit and/or counseling patient: Coding Level of Care Code 54565 Subseq Hosp Care Lvl 2 Diagnoses Acute respiratory failure with hypoxia and hypercapnia J96.01; J96.02 Pneumonia due to COVID-19 virus U07.1; J12.82 Stress-induced cardiomyopathy I51.81 Rapid atrial fibrillation I48.91 Acute systolic CHF (congestive heart failure) I50.21 Hypomagnesemia E83.42 COPD (chronic obstructive pulmonary disease) J44.9 Foot drop, bilateral M21.371; M21.372 Hyperlipidemia E78.5 HTN (hypertension) I10 Chronic radicular lumbar pain M54.16; G89.29 Urinary Incontinence R32 GERD (gastroesophageal reflux disease) K21.9 DMII (diabetes mellitus, type 2) E11.9 Morbid obesity with BMI of 50.0-59.9, adult E66.01; Z68.43 Hydroureteronephrosis N13.30 Enteritis K52.9 VIKKI (obstructive sleep apnea) G47.33 DVT prophylaxis Z29.9 Restless leg syndrome G25.81 Rhabdomyolysis due to COVID-19 U07.1; M62.82
--- NOTE | 2021-07-11 17:03 | XRay Report ---
SINGLE VIEW CHEST CLINICAL HISTORY: Hypoxia. FINDINGS: An AP, portable, upright chest radiograph is compared to studies performed earlier the same day 07/11/2021 and correlated with chest CT dated 07/06/2021. A right internal jugular central veno us catheter, an endotracheal tube, and an enteric tube are unchanged in position. The heart appears e nlarged. Pneumomediastinum persists. Multifocal airspace consolidation is again seen throughout both lungs. This is unchanged from today's earlier examinations. No large pleural effusion is identified. No pneumothorax is clearly seen. The skeletal structures are osteopenic. The bony thorax is grossly i ntact. A left shoulder arthroplasty is in place. Subcutaneous emphysema is seen in the lower neck. IMPRESSION: 1. No pneumothorax is clearly identified. 2. Subcutaneous emphysema in the lower neck and pneumomediastinum persist 3. Stable lines and tubes. 4. Multifocal airspace consolidation has not appreciably changed from today's earlier examinations. ACT 112: Negative or not required by law. Electronically signed by: Dario Craven M.D. 07/11/2021 5:01 PM
[2021-07-12] MEDS: INSULIN ASPART 100 UNITS/ML 3 ML PEN SC SCH ×6 (00:27→20:23)
[2021-07-12] MEDS: TUBE FEEDING WATER FLUSH OG SCH ×6 (00:28→20:31)
[2021-07-12] MEDS: MIDAZOLAM HCL 125 MG/250 ML BAG IV SCH ×3 (01:09→18:44)
[2021-07-12] MEDS: fentaNYL citrate 2,500 MCG/250 ML BAG IV SCH ×2 (01:09→15:08)
[2021-07-12] MEDS: DOPamine / D5W 400 MG/250 ML BAG IV SCH ×5 (02:29→13:37)
[2021-07-12] MEDS: ARTIFICIAL TEARS OP OINT 3.5 GM TUBE OP SCH ×6 (02:29→21:19)
[2021-07-12] MEDS: CEFEPIME 2,000 MG in SYRINGE 0 ML IV SCH ×3 (06:12→21:18)
[2021-07-12 07:44] LABS: Basophils # (auto) 0.01 K/uL (0-0.2); Basophils % (auto) 0.1 %; Hematocrit (blood only) 41.4 % (37-47); Hemoglobin 13.1 g/dL (12.0-16.0); Immature Granulocytes # (auto) 0.04 K/uL (0.00-0.02); Immature Granulocytes % (auto) 0.3 %; Lymphocytes # (auto) 1.39 K/uL (1.2-3.4); Lymphocytes % (auto) 9.2 %; Mean Corpuscular Hemoglobin 31.4 pg (25-34); Mean Corpuscular Hgb Conc 31.6 g/dL (32-36); Mean Corpuscular Volume 99.3 fL (80-100); Mean Platelet Volume 10.1 fL (7.4-10.4); Monocytes # (auto) 1.17 K/uL (0.11-0.59); Monocytes % (auto) 7.7 %; Neutrophils # (auto) 12.54 K/uL (1.4-6.5); Neutrophils % (auto) 82.7 %; Platelet Count 422 K/uL (130-400); RDW Coefficient of Variation 13.6 % (11.5-14.5); RDW Standard Deviation 48.9 fL (36.4-46.3); Red Blood Count 4.17 M/uL (4.2-5.4); White Blood Count 15.15 K/uL (4.8-10.8)
[2021-07-12] MEDS: ENOXAPARIN INJ 60 MG/0.6 ML SYR SQ SCH ×2 (07:59→20:32)
[2021-07-12] MEDS: INSULIN GLARGINE SOLOSTAR 100 UNITS/ML 3 ML PEN SC SCH (07:59)
[2021-07-12] MEDS: GABAPENTIN 250 MG/5 ML 470 ML BTL PO SCH ×2 (07:59→20:32)
[2021-07-12] MEDS: ROSUVASTATIN CALCIUM 10 MG TAB PO SCH (07:59)
[2021-07-12] MEDS: INSULIN HUMAN NPH SC SCH (08:00)
[2021-07-12] MEDS: POTASSIUM CHLORIDE 20 MEQ/15 ML UDC GT SCH ×2 (08:00→18:44)
[2021-07-12] MEDS: MULTI VIT W/MINERALS LIQUID 15 ML UDP NG SCH (08:00)
[2021-07-12] MEDS: PANTOprazole 40 MG in SYRINGE 0 ML IV SCH ×2 (08:01→20:32)
[2021-07-12] MEDS: dexAMETHasone 20 MG in SODIUM CHLORIDE 0.9% 50 ML IV SCH (08:01)
[2021-07-12 08:06] LABS: BUN Creatinine Ratio 53.4 (10-20); Calcium 9.4 mg/dl (8.5-10.1); Creatinine Clr Calc Pharmacy 58.2 ml/min; Est GFR (African American) 63.9 ml/min; Est GFR (Non-African American) 55.2 ml/min; Magnesium 2.6 mg/dl (1.8-2.4); Potassium 4.6 mmol/L (3.5-5.1)
[2021-07-12] MEDS: ACETAMINOPHEN 325 MG TAB PO PRN ×2 (08:35→13:24)
--- NOTE | 2021-07-12 09:25 | Critical Care Progress Note ---
Date of Service July 12, 2021 Assessment & Plan (1) Stress-induced cardiomyopathy: (2) Rapid atrial fibrillation: (3) VIKKI (obstructive sleep apnea): (4) COVID-19: (5) Acute respiratory failure with hypoxia and hypercapnia: (6) Pneumonia due to COVID-19 virus: (7) Morbid obesity with BMI of 50.0-59.9, adult: Plan: Impression: This is a 70-year-old female that received 1 dose of Pfizer vaccination 06/04/2021. She developed signs of congestion and fever and presented to PCP June 23, 2021 and was started on Augmentin. Over the next several days she worsened and presented the emergency room 06/29/2021 where she reported that she had been found positive for Covid and was feeling worse. She was started on remdesivir, dexamethasone and supplemental oxygen. The next day she was started on baricitinib. Patient was intubated 07/04/21 following which patient had ST elevation and was taken to Eligibility Services Representative. Clean coronaries with possible stress-induced cardiomyopathy. EF was 30% at that time 24-hour events: Subcutaneous emphysema has progressed. Chest x-ray demonstrates progressive multifocal airspace opacities. The pneumothorax on the left does not appear significantly progressed. She has continued to require dopamine overnight. Cultures are now positive for E. coli in the sputum as well as gram- negative rods in the urine. Recommendations: 1. Neurologic: Continue sedation as above patient continues to require deep sedation. No improvement with neuromuscular blockade so I have discontinued. Continue Neurontin. Hold pramipexole. 2. Cardiovascular: Decreased ejection fraction with probable Takotsubo cardiomyopathy. Became bradycardic with Romero-Synephrine and significantly hypertensive with norepinephrine, currently tolerating dopamine without significant bradycardia or hypertensive swings. Coronaries were clean on cardiac catheterization. Did have episode of atrial fibrillation with rapid ventricular response. Now off amiodarone and in sinus rhythm. Additional management per cardiology. Last BMP was 1112 on 07/02/2021. Holding Lasix given hemodynamic instability. 3. Pulmonary: CT angiogram showed diffuse groundglass opacities with no evidence of pulmonary embolism or vascular filling defects. Day #9 mechanical ventilation. Current vent settings: AC 26/350/14/1.0 with Pplat 24 and ABG 7.40/48/58 with P/F of 58 which is stable and poor compliance. Patient has not responded to interventions such as neuromuscular blockade or proning so we will avoid these interventions in the future. We have initiated high-dose steroids (20 mg a day for 5 days followed by 10 mg a day for 5 days) based on Dex ARDS late-phase protocol. She is now developed fairly significant subcutaneous emphysema and pneumomediastinum without a progressive pneumothorax. We will continue to try and keep airway pressures low in monitor for need for tube thoracostomy. She is not a candidate for ECMO given her body mass index of 48. She appears to be declining despite our best efforts. 4. GI: Continue trophic tube feeding. 5. Renal: Acid-base status and electrolytes are stable. Discontinue diuresis given her hemodynamic instability 6. Endocrine: Glycemic control per protocol. 7. Heme-onc: No active issues. DVT prophylaxis with enoxaparin 60 mg subcutaneously every 12 hours. 8. ID: Respiratory culture growing E. coli resistant to fluoroquinolones cefazolin and Unasyn as well as ampicillin and corynebacterium and urine culture with gram-negative tez. She is day 2 cefepime vancomycin. We will discontinue the vancomycin at this point time and continue cefepime pending final ID of the urinary pathogen. Patient appears to be declining despite maximal efforts. At this point time it would be reasonable to consider transitioning her to palliative care. Palliative care consult was entered yesterday and were pending results. The family dynamics are difficult as the daughters are listed as the primary contacts but do not answer the phone. Will update son today --Prophylaxis VTE: enoxaparin 60 mg subcutaneously twice daily GI: Pantoprazole 40 mg twice daily via OG tube Lines: Right IJ, left radial, [place] Patient remains critically ill with multiorgan system dysfunction. Discussed with respiratory therapy and bedside critical care nurse. She is not showing any clinical improvement and appears to be declining. Her prognosis is poor and the patient is declining clinically. Updated son Leana, daughters again did not answer phone. Have not been able to reach the daughters on the multiple days. Leana has also been trying to update them but states he has had difficulty getting in touch with them as well. A total of 52 min CC time managing this patient including end of life issues. Discussed with critical care nurse at bedside. Admission and Anticipated Discharge Date Admission Date: June 29, 2021 Subjective Intubated sedated on pressors and max ventilatory settings Review of Systems Review of Systems: Unobtainable due to endotracheal tube Physical Exam Constitutional: + mechanically ventilated Significant subcutaneous emphysema extending into the anterior chest and bilateral neck regions as well as now into the shoulders Neck: trachea midline, no thyromegaly Respiratory: normal respiratory effort, lungs clear to auscultation Cardiovascular: RRR, no murmur, no edema Gastrointestinal (Abdomen): normal bowel sounds, soft, nontender, no hepatosplenomegaly Musculoskeletal: Extremities: extremities normal to inspection Skin: no rashes, warm and dry Lymphatic: no cervical lymphadenopathy Results & Data Results & Data ([facility]) Vital Signs (Past 12 Hours) Vital Signs Temp Pulse Resp BP Pulse Ox 07/12/21 09:00 98 H 26 H 85 L 07/12/21 08:45 99 H 85 L 07/12/21 08:30 94 H 87 L 07/12/21 08:15 94 H 15 87 L 07/12/21 08:00 38.5 C H 95 H 24 87 L 07/12/21 07:45 96 H 24 86 L 07/12/21 07:30 97 H 24 86 L 07/12/21 07:15 97 H 24 85 L 07/12/21 07:00 100 H 15 85 L 07/12/21 06:57 99 H 25 H 85 L 07/12/21 06:30 102 H 18 83 L 07/12/21 06:00 104 H 17 85 L 07/12/21 05:30 103 H 18 86 L 07/12/21 05:00 102 H 19 86 L 07/12/21 04:30 102 H 16 86 L 07/12/21 04:00 38.1 C H 101 H 19 103/59 L 86 L 07/12/21 03:30 101 H 20 87 L 07/12/21 03:02 102 H 29 H 87 L 07/12/21 03:00 102 H 17 87 L 07/12/21 02:30 100 H 17 87 L 07/12/21 02:00 98 H 15 87 L 07/12/21 01:30 98 H 16 87 L 07/12/21 01:00 97 H 15 87 L 07/12/21 00:30 95 H 18 87 L 07/12/21 00:00 38 C H 96 H 17 103/58 L 87 L 07/11/21 23:30 95 H 18 86 L 07/11/21 23:00 95 H 15 86 L 07/11/21 22:30 93 H 17 86 L 07/11/21 22:00 93 H 19 87 L 07/11/21 21:50 25 H 88 L 07/11/21 21:30 94 H 16 88 L Critical Care Results & Data Vital Signs (Past 12 Hours) Vital Signs Temp Pulse Resp BP Pulse Ox 07/12/21 09:00 98 H 26 H 85 L 07/12/21 08:45 99 H 85 L 07/12/21 08:30 94 H 87 L 07/12/21 08:15 94 H 15 87 L 07/12/21 08:00 38.5 C H 95 H 24 87 L 07/12/21 07:45 96 H 24 86 L 07/12/21 07:30 97 H 24 86 L 07/12/21 07:15 97 H 24 85 L 07/12/21 07:00 100 H 15 85 L 07/12/21 06:57 99 H 25 H 85 L 07/12/21 06:30 102 H 18 83 L 07/12/21 06:00 104 H 17 85 L 07/12/21 05:30 103 H 18 86 L 07/12/21 05:00 102 H 19 86 L 07/12/21 04:30 102 H 16 86 L 07/12/21 04:00 38.1 C H 101 H 19 103/59 L 86 L 07/12/21 03:30 101 H 20 87 L 07/12/21 03:02 102 H 29 H 87 L 07/12/21 03:00 102 H 17 87 L 07/12/21 02:30 100 H 17 87 L 07/12/21 02:00 98 H 15 87 L 07/12/21 01:30 98 H 16 87 L 07/12/21 01:00 97 H 15 87 L 07/12/21 00:30 95 H 18 87 L 07/12/21 00:00 38 C H 96 H 17 103/58 L 87 L 07/11/21 23:30 95 H 18 86 L 07/11/21 23:00 95 H 15 86 L 07/11/21 22:30 93 H 17 86 L 07/11/21 22:00 93 H 19 87 L 07/11/21 21:50 25 H 88 L 07/11/21 21:30 94 H 16 88 L Lab & Micro Results (Past 24 Hours) RBC 4.17 M/uL (4.2-5.4) L 07/12/21 WBC 15.15 K/uL (4.8-10.8) H 07/12/21 Hgb 13.1 g/dL (12.0-16.0) 07/12/21 Hct 41.4 % (37-47) 07/12/21 MCV 99.3 fL (80-100) 07/12/21 MCH 31.4 pg (25-34) 07/12/21 MCHC 31.6 g/dL (32-36) L 07/12/21 RDW Standard Deviation 48.9 fL (36.4-46.3) H 07/12/21 RDW Coefficient of Variation 13.6 % (11.5-14.5) 07/12/21 Plt Count 422 K/uL (130-400) H 07/12/21 MPV 10.1 fL (7.4-10.4) 07/12/21 Neutrophils (%) (Auto) 82.7 % 07/12/21 Lymphocytes (%) (Auto) 9.2 % 07/12/21 Monocytes # (Auto) 1.17 K/uL (0.11-0.59) H 07/12/21 Eosinophils # (Auto) 0.00 K/uL (0-0.5) 07/12/21 Immature Granulocyte % (Auto) 0.3 % 07/12/21 Neutrophils # (Auto) 12.54 K/uL (1.4-6.5) H 07/12/21 Lymphocytes # (Auto) 1.39 K/uL (1.2-3.4) 07/12/21 Monocytes # (Auto) 1.17 K/uL (0.11-0.59) H 07/12/21 Eosinophils # (Auto) 0.00 K/uL (0-0.5) 07/12/21 Basophils # (Auto) 0.01 K/uL (0-0.2) 07/12/21 Immature Granulocyte # (Auto) 0.04 K/uL (0.00-0.02) H 07/12/21 Na 139 mmol/L (136-145) 07/12/21 K 4.6 mmol/L (3.5-5.1) 07/12/21 Cl 103 mmol/L (98-107) 07/12/21 CO2 26 mmol/L (21-32) 07/12/21 Anion Gap 10.0 (3-11) 07/12/21 BUN 56 mg/dl (7-18) H 07/12/21 Creatinine 1.04 mg/dl (0.6-1.2) 07/12/21 Estimated GFR ( Amer) 63.9 ml/min 07/12/21 Estimated GFR (Non-Af Amer) 55.2 ml/min 07/12/21 BUN/Creatinine Ratio 53.4 (10-20) H 07/12/21 Glu 151 mg/dl (70-99) H 07/12/21 Ca 9.4 mg/dl (8.5-10.1) 07/12/21 Phosphorus Level 3.0 mg/dl (2.5-4.9) 07/12/21 Mg 2.6 mg/dl (1.8-2.4) H 07/12/21 06:31 07/12/21 Calcium Level 9.4 mg/dl (8.5-10.1) 07/12/21 06:31 07/12/21 Microbiology 07/09/21 16:20 Gram Stain - Final Sputum,Vent Suction Sputum Culture - Final Escherichia coli Corynebacterium species 07/11/21 11:45 Urine Culture - Preliminary Urine,Indwelling Cath Gram negative bacilli Diagnostic Findings (Past 24 Hours) Chest X-Ray 07/11/21 11:07 SINGLE VIEW CHEST CLINICAL HISTORY: Covid pneumonia. Hypoxia. FINDINGS: An AP, semierect, upright chest radiograph is compared to studies performed earlier the same day 07/11/2021 and correlated with chest CT dated 07/06/2021. The examination is degraded by portable technique and patient rotation. There is also motion artifact. A right internal jugular central venous catheter, and endotracheal tube, and an enteric tube are unchanged in position. The heart appears enlarged. Pneumomediastinum persists. Multifocal airspace consolidation is again seen throughout both lungs. This is unchanged from today's earlier examination. No large pleural effusion is identified. Suspect a small left apical pneumothorax. No right-sided pneumothorax is identified. The skeletal structures are osteopenic. The bony thorax is grossly intact. A left shoulder arthroplasty is in place. Subcutaneous emphysema is seen in the lower neck. IMPRESSION: 1. There is no enlarging pneumothorax. The suspected left apical pneumothorax seen on today's earlier examination is not well assessed due to motion artifact. 2. Stable lines and tubes. 3. Subcutaneous emphysema in the lower neck and pneumomediastinum persist 4. Multifocal airspace consolidation has not appreciably changed from today's earlier examination. ACT 112: Negative or not required by law. Electronically signed by: Dario Craven M.D. 07/11/2021 11:46 AM Chest X-Ray 07/11/21 16:00 SINGLE VIEW CHEST CLINICAL HISTORY: Hypoxia. FINDINGS: An AP, portable, upright chest radiograph is compared to studies performed earlier the same day 07/11/2021 and correlated with chest CT dated 07/06/2021. A right internal jugular central venous catheter, an endotracheal tube, and an enteric tube are unchanged in position. The heart appears enlarged. Pneumomediastinum persists. Multifocal airspace consolidation is again seen throughout both lungs. This is unchanged from today's earlier examinations. No large pleural effusion is identified. No pneumothorax is clearly seen. The skeletal structures are osteopenic. The bony thorax is grossly intact. A left shoulder arthroplasty is in place. Subcutaneous emphysema is seen in the lower neck. IMPRESSION: 1. No pneumothorax is clearly identified. 2. Subcutaneous emphysema in the lower neck and pneumomediastinum persist 3. Stable lines and tubes. 4. Multifocal airspace consolidation has not appreciably changed from today's earlier examinations. ACT 112: Negative or not required by law. Electronically signed by: Dario Craven M.D. 07/11/2021 5:01 PM I & O Totals 24 Hours 07/11/21 07/12/21 07/13/21 06:59 06:59 06:59 Intake Total 1679.883 / 2554.952 5402.550 / 3034.550 334.8 / 334.8 Output Total 2440 / 2440 1500 / 1500 200 / 200 Balance -760.117 / -205.544 8068.550 / 1534.550 134.8 / 134.8 Cumulative 06/29/21 12:00 thru 07/12/21 09:05 Intake Total 05195.089 Output Total 28498 Balance -8766.911 RT Ventilator Mngmt (Last Documented) Ventilator Ordered Settings Ventilator Support Mode Assist Control 07/12/21 07:30 Respiratory Rate 26 07/12/21 09:00 Ventilator Tidal Volume 350 07/12/21 07:30 Setting Minute Ventilation 6.3 07/12/21 06:57 Positive End Expiratory 14 07/12/21 07:30 Pressure Fraction of Inspired Oxygen 100 07/12/21 07:30 Machine Comment DECREASED AT THIS TIME TO 80% 07/09/21 14:34 FIO2 Ventilator - PT Measurements Respiratory Rate 26 Exhaled Tidal Volume 370 Minute Ventilation 6.3 Peak Inspiratory Airway 26 Pressure Plateau Pressure 24 Respiratory Cycle Inspiratory: 1:2.4 Expiratory Ratio Inspiratory Phase Time 0.9 End-Tidal CO2 36 Static Lung Compliance 37.00 Dynamic Lung Compliance 30.83 Normal Static Lung Compliance 47.00 Patient Measurements Comment MD AWARE OF LOW SPO2 Coding Level of Care Code Critical Care 1st 30-74 mins Diagnoses Stress-induced cardiomyopathy I51.81 Rapid atrial fibrillation I48.91 VIKKI (obstructive sleep apnea) G47.33 COVID-19 U07.1 Acute respiratory failure with hypoxia and hypercapnia J96.01; J96.02 Pneumonia due to COVID-19 virus U07.1; J12.82 Morbid obesity with BMI of 50.0-59.9, adult E66.01; Z68.43
--- NOTE | 2021-07-12 10:02 | Pharmacy Report ---
Pharmacy Glycemic Short Note 2 - Date of Service July 12, 2021 - Glycemic Short BSG Results (Last 24 hours): 07/11/21 07/11/21 07/11/21 11:33 16:08 20:24 Glucose POC Glucose 185 H POC Glucose (other) 178 H 170 H 07/12/21 07/12/21 07/12/21 00:26 04:27 06:31 Glucose 151 H POC Glucose 173 H 146 H POC Glucose (other) 07/12/21 07:48 Glucose POC Glucose POC Glucose (other) 147 H OUTPATIENT ANTIDIABETIC REGIMEN: * None * A1c 6.4% 09/25/20, updated A1c not ordered, as patient has been on high dose IV steroids x 6 days ASSESSMENT: 07/12 * BSGs yesterday were [phone] and fasting today is 147 mg/dL * Continue current regimen as patient's BSGs (except for one) all below 180 mg/dL. * Continues on Peptamen intense VHP at low rate * Remains intubated and sedated, also on dopamine * Do not anticipate any changes to glycemic regimen today 07/10 * BSGs reasonably well-controlled on current regimen * Dexamethasone increased to 20 mg IV starting yesterday - continue NPH 60 units * Continues on Peptamen intense VHP at low rate * Remains intubated and sedated, also on low-dose dopamine * Do not anticipate any changes to glycemic regimen today 07/08 * Patient continues to be intubated/sedated, plan to wean paralytics, phenylephrine currently weaned off. * Day #10 of dex 6 mg, discussed with odd bundle worker- he will consider late ARDs protocol vs. stopping steroids, will need adjustments to regimen tomorrow morning with steroid changes * BSGS 146-168 mg/dL yesterday, will continue same regimen today, 25 units of lantus/60 units of NPH with dexamethasone. Patient has not required any correctional doses today, Tube feeds were initiated at [facility] will need to monitor for novolog changes. 07/05 * 70 year old female, intubated/sedated, s/p emergent cardiac cath yesterday, COVID19 pneumonia, hyperglycemic d/t IV Steroids * Patient started on insulin drip last night for BSG 441mg/dl, running 4.8-7 units/hr over past 14 hours, currently at 5.6units/hr * Started NPH this morning when pharmacy consulted to cover steroid induced hyperglycemia PLAN FOR INPATIENT GLYCEMIC CONTROL: * Basal insulin * 25 units QAM * NPH 60 units SQ daily with IV dexamethasone * Correctional Insulin: Novolog Correction per scale q4 Goal Range: Low 110 mg/dL - High 140 mg/dL Correction Factor: 10 mg/dL/unit * Prandial insulin: Per carb ratio of 1 unit per 4 grams CHO consumed* to cover tube feeds
--- NOTE | 2021-07-12 11:14 | XRay Report ---
XR chest 1V portable CLINICAL HISTORY: Follow-up pneumothorax and airspace opacities. COMPARISON STUDY: 07/11/2021 TECHNIQUE: 1 view of the chest FINDINGS: Single frontal view of the chest demonstrates the heart size to be within normal limits with pneumome diastinum and pneumopericardium again seen along with subcutaneous emphysema extending into the neck and chest wall. There is again evidence for small left apical pneumothorax when compared to the [facility] study from 07/11/2021. Compared to previous study, there is worsening of interstitial alveolar opacities bilaterally. There is suspicion of small bilateral pleural effusions as well. There is no evidence for vascular congesti on. There is no acute osseous pathology. IMPRESSION: 1. On the current study, there is evidence for small persistent left apical pneumothorax. 2. There is interval worsening of interstitial alveolar opacities bilaterally. 3. There are small bilateral pleural effusions. 4. Pneumomediastinum, pneumopericardium and subcutaneous emphysema are again seen. ACT 112: Negative or not required by law. Electronically signed by: Eloy Valero M.D. 07/12/2021 11:12 AM
[2021-07-12] MEDS ORDERED: DOPAMINE HCL IV SCH (12:00)
[2021-07-12] MEDS ORDERED: VANCOMYCIN HCL 1,250 MG in SODIUM CHLORIDE 0.9% 250 ML IV SCH (12:00)
[2021-07-12] MEDS ORDERED: DEXTROSE 5% IV SCH (12:00)
[2021-07-12] MEDS: DEXTROSE 5% IV SCH ×3 (13:09→20:23)
[2021-07-12] MEDS: DOPAMINE HCL IV SCH ×3 (13:09→20:23)
--- NOTE | 2021-07-12 15:24 | Hospitalist Progress Note ---
Date of Service July 12, 2021 Assessment & Plan (1) Acute respiratory failure with hypoxia and hypercapnia: Plan: due to severe COVID-19 pneumonia and acute HFrEF stress-induced cardiomyopathy. s/p intubation 07/04/21. patient not doing well, developed pneumomediastinum and pneumothorax cannot go up on PEEP, she is saturating in 80's on 100% FiO2 she cannot be proned, she is not ECMO candidate she is declining despite all best efforts she is a DNR per family per Dr. Cooper, need to transition to palliative approach, palliative care consulted but not available until tomorrow (2) Pneumonia due to COVID-19 virus: Plan: severe, with resulting acute hypoxic/hypercapneic respiratory failure and ARDS. progressive disease since admission s/p intubation with mech ventilation 07/04. Had received 5 days of baricitinib - d/c due to vent status. Decadron completed 10 day course, now on ARDS net dosing Completed 5-day course of Remdesivir. Acute systolic/diastolic CHF - cont to diurese status is getting worse, continue maximal supportive efforts but need to transition to palliative approach (3) Pneumothorax: Plan: following low PEEP worsening subcutaneous emphysema (4) Stress-induced cardiomyopathy: Plan: s/p heart alert with emergent cath by Dr Brown on 07/04 due to suspected STEMI. Developed ST segment elevations shortly after intubation. Cath - normal coronaries, global hypokinesis - EF 30%. HFrEF EF was normal just a few days prior. Takotsubo's. This was the cause of her abnormal EKG and ST segment elevations pre-cath. Continue diuresis. requiring Dopamine 12mcg/kg/min makes prognosis even worse (5) Rapid atrial fibrillation: Plan: 07/04 AM -- initially on cardizem infusion which was subsequently stopped prior to intubation & her heart alert. Ultimately underwent synchronized cardioversion which was not successful. She was loaded with amiodarone bolus, then amiodarone infusion. Converted back to NSR late 07/04. Amiodarone drip now off. Will remain on heparin drip. repeat CTA chest on 07/06 was negative for PE, only showed progression of ground glass opacities TSH noted to be slightly depressed and FT4 slightly high - simply repeat these in a few weeks. This is not c/w significant hyperthyroidism leading to a.fib. (6) Acute systolic CHF (congestive heart failure): Plan: echo earlier on admissio with preserved EF but IVC dilated. had been receiving once daily IV lasix. heart alert 07/04 - stress-induced cardiomyopathy with EF 30% based on cath showing normal coronaries. cont diuresis. continue Dopamine (7) COPD (chronic obstructive pulmonary disease): Plan: cont steroids/bronchodilators (8) Foot drop, bilateral: Plan: from lumbar radiculopathy - wears braces chronically at home (9) Urinary Incontinence: Plan: goodwin (10) GERD (gastroesophageal reflux disease): Plan: Continue IV PPI twice daily (11) DMII (diabetes mellitus, type 2): Plan: ICU protocol (12) Morbid obesity with BMI of 50.0-59.9, adult: Plan: BMI 51, this is a direct risk to her mortality with covid pneumonia (13) Hydroureteronephrosis: Plan: b/l, as seen on CT, not severe at this time nothing to do at this time (14) VIKKI (obstructive sleep apnea): Plan: now vented (15) DVT prophylaxis: Plan: Lovenox 60 q12 Plan: Dr. Cooper managing, updated family, very poor prognosis, needs palliative care Admission and Anticipated Discharge Date Admission Date: June 29, 2021 Subjective patient continues to get worse with subcutaneous emphysema, worsening infiltrates, urine and sputum cultures growing E coli Dr. Cooper will discuss changing to comfort measures with family palliative care not available until tomorrow Review of Systems Review of Systems: Unobtainable due to endotracheal tube Physical Exam Physical Exam: General: well developed, obese, sedated, mechanical ventilation Neck: supple, trachea midline, normal thyroid Lungs: symmetric chest movement, on ventilator Heart: regular S1 and S2, no murmur, peripheral pulses normal, capillary refill normal, no edema Abdomen: soft, NT, ND, + BS Extremities: normal in appearance, no cyanosis, no petechiae Neuro: sedated, CN II-XII intact, no focal deficits Skin: warm, dry, no rash, normal turgor Psych: sedated Results & Data Results & Data ([facility] [place]) Vital Signs (Past 12 Hours) Vital Signs Temp Pulse Resp BP Pulse Ox 07/12/21 14:41 90 25 H 81 L 07/12/21 13:24 39 C H 07/12/21 13:00 99 H 27 H 83 L 07/12/21 12:30 99 H 26 H 82 L 07/12/21 12:00 98 H 26 H 82 L 07/12/21 11:30 91 H 24 81 L 07/12/21 11:14 99 H 26 H 81 L 07/12/21 11:06 39.5 C H 07/12/21 11:00 100 H 24 82 L 07/12/21 10:30 96 H 24 81 L 07/12/21 10:00 97 H 17 81 L 07/12/21 09:30 97 H 15 83 L 07/12/21 09:00 98 H 26 H 85 L 07/12/21 08:45 99 H 85 L 07/12/21 08:30 94 H 87 L 07/12/21 08:15 94 H 15 87 L 07/12/21 08:00 38.5 C H 95 H 24 87 L 07/12/21 07:45 96 H 24 86 L 07/12/21 07:30 97 H 24 86 L 07/12/21 07:15 97 H 24 85 L 07/12/21 07:00 100 H 15 85 L 07/12/21 06:57 99 H 25 H 85 L 07/12/21 06:30 102 H 18 83 L 07/12/21 06:00 104 H 17 85 L 07/12/21 05:30 103 H 18 86 L 07/12/21 05:00 102 H 19 86 L 07/12/21 04:30 102 H 16 86 L 07/12/21 04:00 38.1 C H 101 H 19 103/59 L 86 L 07/12/21 03:30 101 H 20 87 L Laboratory Results Laboratory Results - last 24 hr 07/11/21 07/11/21 07/12/21 16:08 20:24 00:26 WBC RBC Hgb Hct MCV MCH MCHC RDW Std Deviation RDW Coeff of Shant Plt Count MPV Immature Gran % (Auto) Neut % (Auto) Lymph % (Auto) [place] % (Auto) Eos % (Auto) Baso % (Auto) Neut # (Auto) Lymph # (Auto) [place] # (Auto) Eos # (Auto) Baso # (Auto) Immature Gran # (Auto) Sodium Potassium Chloride Carbon Dioxide Anion Gap BUN Creatinine Est Cr Clr Drug Dosing Est GFR ( Amer) Est GFR (Non-Af Amer) BUN/Creatinine Ratio Glucose POC Glucose 185 H 173 H POC Glucose (other) 170 H Calcium Phosphorus Magnesium 07/12/21 07/12/21 07/12/21 04:27 06:11 06:31 WBC 15.15 H RBC 4.17 L Hgb 13.1 Hct 41.4 MCV 99.3 MCH 31.4 MCHC 31.6 L RDW Std Deviation 48.9 H RDW Coeff of Shant 13.6 Plt Count 422 H MPV 10.1 Immature Gran % (Auto) 0.3 Neut % (Auto) 82.7 Lymph % (Auto) 9.2 [place] % (Auto) 7.7 Eos % (Auto) 0.0 Baso % (Auto) 0.1 Neut # (Auto) 12.54 H Lymph # (Auto) 1.39 [place] # (Auto) 1.17 H Eos # (Auto) 0.00 Baso # (Auto) 0.01 Immature Gran # (Auto) 0.04 H Sodium 139 Potassium 4.6 Chloride 103 Carbon Dioxide 26 Anion Gap 10.0 BUN 56 H Creatinine 1.04 Est Cr Clr Drug Dosing 58.2 Est GFR ( Amer) 63.9 Est GFR (Non-Af Amer) 55.2 BUN/Creatinine Ratio 53.4 H Glucose 151 H POC Glucose 146 H POC Glucose (other) Calcium 9.4 Phosphorus 3.0 Magnesium 2.6 H 07/12/21 07/12/21 07:48 13:15 WBC RBC Hgb Hct MCV MCH MCHC RDW Std Deviation RDW Coeff of Shant Plt Count MPV Immature Gran % (Auto) Neut % (Auto) Lymph % (Auto) [place] % (Auto) Eos % (Auto) Baso % (Auto) Neut # (Auto) Lymph # (Auto) [place] # (Auto) Eos # (Auto) Baso # (Auto) Immature Gran # (Auto) Sodium Potassium Chloride Carbon Dioxide Anion Gap BUN Creatinine Est Cr Clr Drug Dosing Est GFR ( Amer) Est GFR (Non-Af Amer) BUN/Creatinine Ratio Glucose POC Glucose POC Glucose (other) 147 H 232 H Calcium Phosphorus Magnesium Medications Administered Current Inpatient Medications Acetaminophen (Acetaminophen 325 Mg Tab) 650 mg PO Q4H PRN PRN Reason: Pain or Fever Stop: 07/29/21 23:07 Last Admin: 07/12/21 13:24 Dose: 650 mg Documented by: Albuterol (Albuterol 0.083% Nebu Soln 3 Ml Vial) 2.5 mg NEB Q4 PRN PRN Reason: shortness of breath Stop: 07/29/21 23:07 Dextrose (Dextrose 50% 50 Ml Syringe) 25 - 50 ml IV UD PRN; Protocol PRN Reason: Hypoglycemia Protocol Stop: 07/29/21 23:07 Enoxaparin Sodium (Enoxaparin Inj 60 Mg/0.6 Ml Syr) 60 mg SQ Q12 DEDE Stop: 08/05/21 20:59 Last Admin: 07/12/21 07:59 Dose: 60 mg Documented by: Fentanyl Citrate (Fentanyl Bolus From Bag) 50 mcg IV Q1H PRN PRN Reason: Pain or Agitation Stop: 07/18/21 16:20 Last Admin: 07/08/21 22:53 Dose: 50 mcg Documented by: Fluticasone Propionate (Fluticasone Propionate Na Spr 16 Gm Btl) 2 sprays FRANCISCO DAILY PRN PRN Reason: NASALL CONGESTION Stop: 07/29/21 23:07 Last Admin: 07/02/21 21:38 Dose: 2 sprays Documented by: Gabapentin (Gabapentin 250 Mg/5 Ml 470 Ml Btl) 300 mg PO BID DEDE Stop: 08/03/21 20:59 Last Admin: 07/12/21 07:59 Dose: 300 mg Documented by: Glucagon (Glucagon For Inj 1 Mg Vial) 1 mg SQ UD PRN; Protocol PRN Reason: Hypoglycemia Protocol Stop: 07/29/21 23:07 Glucose (Glucose 10 Tabs/Tube) 4 - 8 tabs PO UD PRN; Protocol PRN Reason: Hypoglycemia Protocol Stop: 07/29/21 23:07 Glucose (Glucose 40% Gel 15 Gm Tube) 15 - 30 gm PO UD PRN; Protocol PRN Reason: Hypoglycemia Protocol Stop: 07/29/21 23:07 Pantoprazole Sodium 40 mg/ (Syringe) 10 mls @ 5 mls/min IV BID DEDE Stop: 08/03/21 20:59 Last Admin: 07/12/21 08:01 Dose: 5 mls/min Documented by: Midazolam HCl (Versed) 125 mg in 250 mls @ 15 mls/hr IV .[id number] DEDE; Protocol Stop: 08/05/21 12:59 Last Admin: 07/12/21 10:33 Dose: Not Given Documented by: Fentanyl Citrate (Fentanyl Citrate) 2,500 mcg in 250 mls @ 15 mls/hr IV .[id number] [facility]; Protocol Stop: 07/20/21 19:59 Last Admin: 07/12/21 15:08 Dose: 200 mcg/hr, 20 mls/hr Documented by: Dexamethasone 20 mg/ Sodium (Chloride) 55 mls @ 200 mls/hr IV DAILY [facility] Stop: 07/14/21 08:59 Last Infusion: 07/12/21 08:22 Dose: Infused Documented by: Vancomycin HCl 1,250 mg/ (Sodium Chloride) 275 mls @ 200 mls/hr IV Q24H [facility] Stop: 07/19/21 11:59 Last Infusion: 07/12/21 14:59 Dose: Infused Documented by: Cefepime HCl 2,000 mg/ Syringe 20 mls @ 5 mls/min IV Q8H [facility] Stop: 07/18/21 13:59 Last Admin: 07/12/21 13:20 Dose: 5 mls/min Documented by: Dopamine HCl 400 mg/ Dextrose 250 mls @ 72 mls/hr IV .Q3H29M [facility]; Protocol Stop: 08/11/21 11:59 Last Admin: 07/12/21 13:09 Dose: 16 mcg/kg/min, 72 mls/hr Documented by: Insulin Aspart (Insulin Aspart 100 Units/Ml 3 Ml Pen) 0 units SC Q4 [facility] Stop: 07/29/21 23:07 Last Admin: 07/12/21 13:31 Dose: 10 units Documented by: Insulin Glargine (Insulin Glargine Solostar 100 Units/Ml 3 Ml Pen) 25 units SC QAM [facility]; Protocol Stop: 08/04/21 14:59 Last Admin: 07/12/21 07:59 Dose: 25 units Documented by: Insulin Human NPH (Insulin Human Nph) 60 units SC DAILY [facility]; Protocol Stop: 08/05/21 08:59 Last Admin: 07/12/21 08:00 Dose: 60 units Documented by: Miconazole Nitrate (Miconazole Nitrate Powder 43 Gm) 1 appln EXT PRN PRN PRN Reason: Affected Skin Folds Stop: 08/02/21 12:09 Midazolam HCl (Midazolam Bolus From Bag) 2 mg IV Q60M PRN PRN Reason: Sedation Stop: 08/05/21 12:48 Last Admin: 07/08/21 22:54 Dose: 2 mg Documented by: Miscellaneous (Carbohydrates For Hypoglycemia ) 15 - 30 gm PO UD PRN PRN Reason: Hypoglycemia Protocol Stop: 07/29/21 23:07 Miscellaneous Information (Pharmacy Glycemic Mgmt Consult) 1 ea N/A UD PRN PRN Reason: Consult Stop: 08/03/21 22:01 Miscellaneous Information (Vancomycin Consult Active) 1 ea N/A UD PRN PRN Reason: Consult Stop: 08/10/21 10:33 Morphine Sulfate (Morphine Sulfate 2 Mg/Ml Carp) 2 mg IV Q4H PRN PRN Reason: Pain/respiratory distress Stop: 07/14/21 02:52 Last Admin: 07/03/21 21:38 Dose: 2 mg Documented by: Multi-Ingredient Cream (Artificial Tears Op Oint 3.5 Gm Tube) 1 appln OP Q4H DEDE Stop: 08/05/21 16:29 Last Admin: 07/12/21 13:15 Dose: Not Given Documented by: Multivitamins/Minerals (Multi Vit W/Minerals Liquid 15 Ml Udp) 15 ml NG QAM [facility] Stop: 08/08/21 08:59 Last Admin: 07/12/21 08:00 Dose: 15 ml Documented by: Nutritional Formula (Peptamen Intense Vhp 1.0 Rob 1,000 Ml Bag) 1,000 ml OG UD [facility]; Protocol Stop: 08/07/21 12:44 Polyethylene Glycol (Polyethylene (Miralax) 17 Gm Pack) 17 gm PO DAILY PRN PRN Reason: Constipation Stop: 07/29/21 23:07 Potassium Chloride (Potassium Chloride 20 Meq/15 Ml Udc) 10 meq GT BIDM DEDE Stop: 08/04/21 11:59 Last Admin: 07/12/21 08:00 Dose: 10 meq Documented by: Rosuvastatin Calcium (Rosuvastatin Calcium 10 Mg Tab) 10 mg PO QAM DEDE Stop: 07/30/21 08:59 Last Admin: 07/12/21 07:59 Dose: 10 mg Documented by: Sterile Water (Tube Feeding Water Flush) 30 ml OG Q4H DEDE Stop: 08/07/21 12:44 Last Admin: 07/12/21 13:15 Dose: 30 ml Documented by: PG Care Time/CCT Total # of Minutes Spent Total Time Spent with Patient: Total time spent is greater than 50% in coordination of care (as documented) at patient's floor/unit and/or counseling patient: Coding Level of Care Code 09628 Subseq Hosp Care Lvl 2 Diagnoses Acute respiratory failure with hypoxia and hypercapnia J96.01; J96.02 Pneumonia due to COVID-19 virus U07.1; J12.82 Stress-induced cardiomyopathy I51.81 Rapid atrial fibrillation I48.91 Acute systolic CHF (congestive heart failure) I50.21 COPD (chronic obstructive pulmonary disease) J44.9 Foot drop, bilateral M21.371; M21.372 Urinary Incontinence R32 GERD (gastroesophageal reflux disease) K21.9 DMII (diabetes mellitus, type 2) E11.9 Morbid obesity with BMI of 50.0-59.9, adult E66.01; Z68.43 Hydroureteronephrosis N13.30 VIKKI (obstructive sleep apnea) G47.33 DVT prophylaxis Z29.9 Pneumothorax J93.9
[2021-07-13] MEDS: ARTIFICIAL TEARS OP OINT 3.5 GM TUBE OP SCH ×3 (01:17→08:00)
[2021-07-13] MEDS: INSULIN ASPART 100 UNITS/ML 3 ML PEN SC SCH ×3 (01:17→07:54)
[2021-07-13] MEDS: TUBE FEEDING WATER FLUSH OG SCH ×3 (01:17→07:55)
[2021-07-13] MEDS: DEXTROSE 5% IV SCH ×4 (03:17→08:00)
[2021-07-13] MEDS: DOPAMINE HCL IV SCH ×4 (03:17→08:00)
[2021-07-13 03:59] LABS: iSTAT Arterial Blood Gas HCO3 29 meg/L (19-24); iSTAT Arterial Blood Gas pCO2 56 mmHg (35-46); iSTAT Arterial Blood Gas pH 7.32 (7.35-7.45); iSTAT Arterial Blood Gas pO2 47 mmHg (80-95); iSTAT Carbon Dioxide 30 mmol/L (24-31); iSTAT FiO2 100 %; iSTAT Site Art Line
[2021-07-13] MEDS: fentaNYL citrate 2,500 MCG/250 ML BAG IV SCH (05:30)
[2021-07-13] MEDS: CEFEPIME 2,000 MG in SYRINGE 0 ML IV SCH (06:03)
[2021-07-13 06:22] LABS: Hematocrit (blood only) 38.7 % (37-47); Hemoglobin 12.3 g/dL (12.0-16.0); Immature Granulocytes # (auto) 0.02 K/uL (0.00-0.02); Immature Granulocytes % (auto) 0.2 %; Lymphocytes # (auto) 1.09 K/uL (1.2-3.4); Lymphocytes % (auto) 11.4 %; Mean Corpuscular Hemoglobin 31.5 pg (25-34); Mean Corpuscular Hgb Conc 31.8 g/dL (32-36); Mean Platelet Volume 9.8 fL (7.4-10.4); Monocytes # (auto) 0.62 K/uL (0.11-0.59); Monocytes % (auto) 6.5 %; Neutrophils # (auto) 7.79 K/uL (1.4-6.5); Neutrophils % (auto) 81.9 %; Platelet Count 339 K/uL (130-400); RDW Coefficient of Variation 13.4 % (11.5-14.5); RDW Standard Deviation 48.4 fL (36.4-46.3); Red Blood Count 3.91 M/uL (4.2-5.4); White Blood Count 9.52 K/uL (4.8-10.8)
[2021-07-13 06:53] LABS: Albumin Level 1.9 gm/dl (3.4-5.0); Calcium 9.5 mg/dl (8.5-10.1); Creatinine Clr Calc Pharmacy 77.5 ml/min; Est GFR (African American) 80.5 ml/min; Est GFR (Non-African American) 69.4 ml/min; Magnesium 2.7 mg/dl (1.8-2.4); Potassium 4.9 mmol/L (3.5-5.1)
[2021-07-13 06:56] LABS: Albumin Globulin Ratio 0.3 (0.9-2); Bilirubin,Total 0.6 mg/dl (0.2-1); Globulin 5.6 gm/dl (2.5-4.0); Phosphorus 2.9 mg/dl (2.5-4.9); Total Protein 7.5 gm/dl (6.4-8.2)
[2021-07-13] MEDS: dexAMETHasone 20 MG in SODIUM CHLORIDE 0.9% 50 ML IV SCH (07:55)
[2021-07-13] MEDS: POTASSIUM CHLORIDE 20 MEQ/15 ML UDC GT SCH (07:55)
[2021-07-13] MEDS: ROSUVASTATIN CALCIUM 10 MG TAB PO SCH (07:58)
[2021-07-13] MEDS: INSULIN GLARGINE SOLOSTAR 100 UNITS/ML 3 ML PEN SC SCH (07:58)
[2021-07-13] MEDS: PANTOprazole 40 MG in SYRINGE 0 ML IV SCH (08:00)
[2021-07-13] MEDS: MULTI VIT W/MINERALS LIQUID 15 ML UDP NG SCH (08:00)
[2021-07-13] MEDS: GABAPENTIN 250 MG/5 ML 470 ML BTL PO SCH (08:00)
--- NOTE | 2021-07-13 08:17 | XRay Report ---
XR chest 1V portable CLINICAL HISTORY: resp fialure. Follow-up pneumothorax and alveolar opacities COMPARISON STUDY: 07/12/2021 TECHNIQUE: 1 view of the chest FINDINGS: Single frontal view of the chest demonstrates the heart to again be enlarged. Compared to the previou s examination, bilateral interstitial and alveolar opacities are again seen essentially unchanged. Th ere is again evidence for small left apical pneumothorax. Tubes and catheters are unchanged. There is also evidence of bilateral pleural effusions. There is no evidence for vascular congestion. There is no acute osseous pathology. IMPRESSION: Compared to previous examination, bilateral interstitial and alveolar opacities and bilat eral pleural effusions are again seen. Small left apical pneumothorax is again identified. It is unch anged. ACT 112: Negative or not required by law. Electronically signed by: Eloy Valero M.D. 07/13/2021 8:16 AM
[2021-07-13] MEDS ORDERED: INSULIN HUMAN NPH SC ONE (09:00)
--- NOTE | 2021-07-13 09:12 | Palliative Care Consultation ---
Date of Consultation July 13, 2021 Assessment & Plan (1) Palliative care encounter: This is an unfortunate 70 year old patient who presented to the [facility] with dypnea, fatigue and was diagnosed with COVID-19. She was intubated and treated. Despite overall efforts, she continued to decline. Additional PMH includes: obesity, chronic low back pain with foot drop, spinal stenosis with cervical decompression, neuropathy, COPD, VIKKI, HLD, HTN, DMII, Dysphagia, Urinary incontinence with bladder prolapse. Palliative medicine was consulted to discuss overall goals of care. Lengthy conversation held with the patients daughter Abraham on the phone at [phone] and with her son Leana at [phone]. The patient has been receiving maximum respiratory efforts via ventilator and has not shown any improvement. At this point, her saturations are less than 80% and she is now not providing oxygen to her vital organs efficiently. We discussed that her condition is at this time not recoverable. Both son and daughter in support for a compassionate extubation which was communicated with respiratory therapy, the aircraft steel fabricator, respiratory therapist, and the hospitalist. Extubation orders placed. Expect patient to pass within minutes of extubation and discontinuation of medications. Support offered to family. History of Present Illness Reason for Consultation: goals of care Requesting Physician: Dr. Cooper Attending Physician: Hussain Orlando DO History of Present Illness This is an unfortunate 70 year old patient who presented to the [facility] with dypnea, fatigue and was diagnosed with COVID-19. She was intubated and treated. Despite overall efforts, she continued to decline. Additional PMH includes: obesity, chronic low back pain with foot drop, spinal stenosis with cervical decompression, neuropathy, COPD, VIKKI, HLD, HTN, DMII, Dysphagia, Urinary incontinence with bladder prolapse. Palliative medicine was consulted to discuss overall goals of care. Please see A/P for further details Thanks for involving Palliative Medicine with this unfortuante situation. Allergies Allergy/AdvReac Type Severity Reaction Status Date / Time cetirizine Allergy Intermediate RASH Verified 06/12/21 10:17 metformin AdvReac Mild GI upset Verified 07/06/21 06:43 sulfamethoxazole AdvReac Mild severe dry Verified 07/06/21 06:43 [From Bactrim] mouth trimethoprim [From Bactrim] AdvReac Mild severe dry Verified 07/06/21 06:43 mouth Home Medications Medication Instructions Recorded Confirmed Type cholecalciferol (vitamin D3) 25 3,000 units PO QAM cap 01/26/19 06/29/21 History mcg (1,000 unit) capsule biotin 5,000 mcg disintegrating 5,000 mcg PO QAM 04/18/19 06/29/21 History tablet acetaminophen 325 mg tablet 325 mg PO QID PRN 02/28/20 06/29/21 History (Tylenol) pramipexole 0.5 mg tablet (Mirapex) 0.5 mg PO HS #90 tab 08/25/20 06/29/21 Rx montelukast 10 mg tablet 10 mg PO HS #90 tab 10/20/20 06/29/21 Rx (Singulair) furosemide 40 mg tablet (Lasix) 40 mg PO QAM #90 tab 10/24/20 06/29/21 Rx gabapentin 300 mg capsule 300 mg PO BID #60 cap 11/07/20 06/29/21 Rx albuterol sulfate 2.5 mg INH QID PRN #90 ml 01/05/21 06/29/21 Rx albuterol sulfate 90 mcg/actuation 2 puff INH Q6H PRN #18 gm 01/05/21 06/29/21 Rx aerosol inhaler duloxetine 30 mg capsule,delayed 30 mg PO BID #180 cap 04/02/21 06/29/21 Rx release lorazepam 0.5 mg tablet 0.5 mg PO BID PRN #30 tab 04/02/21 06/29/21 Rx tramadol 50 mg tablet 100 mg PO Q6H PRN #90 tab 04/02/21 06/29/21 Rx potassium chloride 10 mEq 10 meq PO BID #60 cap 04/30/21 06/29/21 Rx capsule,extended release baclofen 10 mg tablet 10 mg PO BID #60 tab 05/01/21 06/29/21 Rx fluticasone furoate 100 1 inh INHALATION HS 05/09/21 06/29/21 History mcg-vilanterol 25 mcg/dose inhalation powder (Breo Ellipta) pantoprazole 40 mg tablet,delayed 40 mg PO BID 05/09/21 06/29/21 History release rosuvastatin 10 mg tablet 10 mg PO QAM 05/09/21 06/29/21 History fluticasone propionate 50 2 spray INTNAS DAILY PRN #15.8 ml 05/13/21 06/29/21 Rx mcg/actuation nasal spray,suspension mirabegron 50 mg tablet,extended 50 mg PO DAILY #30 tab 06/16/21 06/29/21 Rx release 24 hr amoxicillin 875 mg-potassium 1 tab PO BID 10 Days #20 tab 06/23/21 06/29/21 Rx clavulanate 125 mg tablet (Augmentin) Patient History Medical History (Updated 07/13/21 @ 11:06 by FLORIAN Floyd) Ambulatory dysfunction Anxiety Asthma stable COPD (chronic obstructive pulmonary disease) Stable and controlled Depressive disorder Diabetes mellitus NIDDM- stable and controlled per patient Discoloration of skin of lower leg Edema Fibromyalgia Constant pain Foot drop, bilateral Gastroparesis GERD (gastroesophageal reflux disease) controlled History of ear infection hx recurrent ear infections s/p drainage tube in left ear - no recent issues History of urinary incontinence chronic History of urinary urgency chronic Hyperlipidemia Hypertension Lumbar spinal stenosis Severe at L3-4 Mixed conductive and sensorineural hearing loss Morbid obesity On home oxygen therapy 3LPM at HS Pain of lower extremity Palliative care encounter Restless leg syndrome Right leg weakness Severe muscle deconditioning Sleep apnea CPAP Spinal stenosis Unable to care for self Surgical History H/O: hysterectomy History of cholecystectomy History of esophagogastroduodenoscopy (EGD) History of left knee replacement History of left shoulder replacement History of repair of right rotator cuff History of right knee joint replacement History of surgery on upper extremity LET ARM ABSCESS History of tonsillectomy History of tooth extraction all teeth Hx of colonoscopy Family History Brother Family history of diabetes mellitus Sister Family history of diabetes mellitus Breast cancer Mother Family history of diabetes mellitus Stroke Aunt Family history of diabetes mellitus Father Myocardial infarction Other Coronary heart disease Denies family history of Ovarian cancer Prostate cancer Colorectal cancer Social History Smoking Status: Never smoker Second Hand Exposure: Yes; Hx Alcohol Use: No Hx Substance Use: No Preferred Language: Cymro Communication Ability: Effective Visual Impairment: No Limitations Hearing Ability: Hard of Hearing Hoop Machine Operator Required: No Beliefs That Will Affect Care: None marital status: / Current Living Situation: Alone Current Living Situation Comment: Lives at home alone with son as caregiver. Feels Safe at Home: Yes Childhood Exposure to Second-Hand Smoke: Yes caffeine: Yes (tea every morning) Dental Care, Regularly: No Physical Activity Frequency: Does not Exercise Seatbelt Use: always Sunscreen Use: Yes Assistive Devices: Oxygen - Continuous Review of Systems Review of Systems: [place] System Assessment Scale: Pain: by observation: 0/3 SOB: by observation 3/3 Palliative Performance Scale: 10% Physical Exam Constitutional: + obese and + frail appearing Cardiovascular: Rate/Rhythm: regular rate and regular rhythm Gastrointestinal (Abdomen): Inspection/Auscultation: abdomen normal to inspection Neurologic: + obtunded Results & Data ([facility]) Vital Signs (Past 12 Hours) Vital Signs Temp Pulse Resp BP Pulse Ox 07/13/21 08:18 37.5 C 07/13/21 08:00 83 26 H 83 L 07/13/21 07:48 83 26 H 81 L 07/13/21 07:30 83 26 H 81 L 07/13/21 07:00 80 25 H 80 L 07/13/21 06:30 82 13 80 L 07/13/21 06:00 81 12 81 L 07/13/21 05:30 82 12 82 L 07/13/21 05:00 81 9 L 81 L 07/13/21 04:30 83 11 L 80 L 07/13/21 04:00 37.9 C H 84 13 112/56 L 81 L 07/13/21 03:38 26 H 07/13/21 03:30 83 14 80 L 07/13/21 03:00 84 13 81 L 07/13/21 02:30 85 14 81 L 07/13/21 02:00 87 11 L 81 L 07/13/21 01:30 89 13 81 L 07/13/21 01:00 91 H 13 80 L 07/13/21 00:30 94 H 13 82 L 07/13/21 00:00 37.7 C H 93 H 13 113/61 83 L 07/12/21 23:30 93 H 12 83 L 07/12/21 23:00 92 H 12 82 L 07/12/21 22:30 92 H 12 81 L 07/12/21 22:20 92 H 07/12/21 22:01 91 H 26 H 81 L 07/12/21 22:00 91 H 12 81 L 07/12/21 21:30 92 H 13 80 L PG Care Time/CCT Total # of Minutes Spent Total Time Spent with Patient: Total time spent is greater than 50% in coordination of care (as documented) at patient's floor/unit and/or counseling patient: 100 minutes with > 50% of that time spent assessing the patient, discussing goals of care with the family and collaborating with IDT Coding Level of Care Code 80285 Initial Inpt Care Lvl 3 Diagnoses Palliative care encounter Z51.5 Time Spent (min) 100
[2021-07-13] MEDS: MIDAZOLAM HCL 125 MG/250 ML BAG IV SCH (10:18)
[2021-07-13] MEDS: ENOXAPARIN INJ 60 MG/0.6 ML SYR SQ SCH (10:18)
[2021-07-13] MEDS ORDERED: MoRPHine SULFATE 4 MG/ML 1 ML CARP\\VIAL IV STA (11:14)
--- NOTE | 2021-07-13 12:00 | Discharge Summary ---
Date of Service July 13, 2021 Admission HPI Per Admitting Provider 70 YOF with past medical history of: Morbid obesity, chronic low back pain with foot drop, spinal stenosis with cervical decompression, neuropathy, COPD, VIKKI, HLD, HTN, DMII, Dysphagia, Urinary incontinence with bladder prolapse. Patient comes to the EMD today for dyspnea, fatigue, and concern for COVID 19. Patient states that she started feeling ill last 24Jun2021 with head congestion, runny nose, abdominal discomfort, diarrhea x4 days. Patient has lost her sense of taste and smell. She had a call in visit with her PCP on with complaints of sinus drainage, fever, and pain behind her eyes with cough. Recommended COVID testing at that time and was given script for Augmentin. She has decreased oral intake of food and water. Patient usually has home health assistance help her at home, but this has lapsed per her and her son was assisting with her as her primary care professionals, he reportedly tested positive a couple days ago and was sent home on home therapy. Patient's onset of symptoms are between 6-9 days. Patient will be admitted for COVID 19. We have discussed therapy for her COVID and hypoxemia to include steroid therapy, remdisivir, and oxygenation escalation, and self rotational therapy and proning. Patient verbalized that she would want Remdisivir and may have difficulty with prone position, but will need help laying on her side. Overall fatigued appeari ng. Co-morbids put her at risk for severe disease. Support as below. Patient had received 1 dose of her COVID vaccine and her COVID test on admission is: POSITIVE Principal Diagnosis COVID 19 pneumonia Acute hypoxic respiratory failure Stress cardiomyopathy Discharge Exam no pulse, no respirations, no heart tones, no breath sounds, pupils fixed Discharge Data Allergies Allergy/AdvReac Type Severity Reaction Status Date / Time cetirizine Allergy Intermediate RASH Verified 06/12/21 10:17 metformin AdvReac Mild GI upset Verified 07/06/21 06:43 sulfamethoxazole AdvReac Mild severe dry Verified 07/06/21 06:43 [From Bactrim] mouth trimethoprim [From Bactrim] AdvReac Mild severe dry Verified 07/06/21 06:43 mouth Consultations 06/29/21 16:41 ED Decision to Admit Stat 07/02/21 17:42 Consult Pulmonology Routine 07/05/21 11:51 Consult Cardiology Routine 07/11/21 12:18 Consult Palliative Care Routine Procedures Performed Operation Date: 07/04/21 15:15 Actual Procedures p Cath, Left with Cors and Vent - Chava Brown MD s Cineradiography w/Routine Exam - Chava Brown MD Ordered Studies 06/29/21 12:42 CT abd pelvis IV con only Stat CT angio chest PE protocol Stat 07/04/21 14:16 US point of care ultrasound Stat 07/04/21 15:03 CL Cath Imgs for PACS use only Stat 07/06/21 03:22 CT angio chest PE protocol Stat Hospital Course (1) Acute respiratory failure with hypoxia and hypercapnia: due to severe COVID-19 pneumonia and acute HFrEF stress-induced cardiomyo kayleigh. s/p intubation 07/04/21. patient developed pneumomediastinum and pneumothorax cannot go up on PEEP, she was saturating in 80's on 100% FiO2 she cannot be proned, she is not ECMO candidate she is declining despite all best efforts she is a DNR per family palliative care spoke with family on 07/13, made decision to withdraw care, terminally extubated she passed at 11:40 AM on 07/13/21 (2) Pneumonia due to COVID-19 virus: severe, with resulting acute hypoxic/hypercapneic respiratory failure and ARDS. progressive disease since admission s/p intubation with mech ventilation 07/04. Had received 5 days of baricitinib - d/c due to vent status. Decadron completed 10 day course, now on ARDS net dosing Completed 5-day course of Remdesivir. Acute systolic/diastolic CHF - cont to diurese (3) Pneumothorax: following low PEEP worsening subcutaneous emphysema (4) Stress-induced cardiomyopathy: s/p heart alert with emergent cath by Dr Brown on 07/04 due to suspected STEMI. Developed ST segment elevations shortly after intubation. Cath - normal coronaries, global hypokinesis - EF 30%. HFrEF EF was normal just a few days prior. Takotsubo's. This was the cause of her abnormal EKG and ST segment elevations pre-cath. Continue diuresis. requiring Dopamine 12mcg/kg/min makes prognosis even worse (5) Rapid atrial fibrillation: 07/04 AM -- initially on cardizem infusion which was subsequently stopped prior to intubation & her heart alert. Ultimately underwent synchronized cardioversion which was not successful. She was loaded with amiodarone bolus, then amiodarone infusion. Converted back to NSR late 07/04. Amiodarone drip now off. Will remain on heparin drip. repeat CTA chest on 07/06 was negative for PE, only showed progression of ground glass opacities TSH noted to be slightly depressed and FT4 slightly high - simply repeat these in a few weeks. This is not c/w significant hyperthyroidism leading to a.fib. (6) Acute systolic CHF (congestive heart failure): echo earlier on admissio with preserved EF but IVC dilated. had been receiving once daily IV lasix. heart alert 07/04 - stress-induced cardiomyopathy with EF 30% based on cath s howing normal coronaries. cont diuresis. continue Dopamine (7) COPD (chronic obstructive pulmonary disease): cont steroids/bronchodilators (8) Foot drop, bilateral: from lumbar radiculopathy - wears braces chronically at home (9) Urinary Incontinence: goodwin (10) GERD (gastroesophageal reflux disease): Continue IV PPI twice daily (11) DMII (diabetes mellitus, type 2): ICU protocol (12) Morbid obesity with BMI of 50.0-59.9, adult: BMI 51, this is a direct risk to her mortality with covid pneumonia (13) Hydroureteronephrosis: b/l, as seen on CT, not severe at this time nothing to do at this time (14) VIKKI (obstructive sleep apnea): now vented (15) DVT prophylaxis: Lovenox [address] Cooper managing, updated family, very poor prognosis, needs palliative care Total Time Total Time Spent Total Time Spent (In Minutes): 25 Discharge Plan Discharge Items Reason For Visit: COVID Follow-up/Referrals: Bismark Ronquillo MD [Primary Care Provider] - Medications and DC Order Prescriptions: No Action montelukast [Singulair] 10 mg tablet 10 mg PO HS Qty: 90 RF: 3 furosemide [Lasix] 40 mg tablet 40 mg PO QAM Qty: 90 RF: 3 gabapentin 300 mg capsule 300 mg PO BID Qty: 60 RF: 11 duloxetine 30 mg capsule,delayed release(DR/EC) 30 mg PO BID Qty: 180 RF: 3 lorazepam 0.5 mg tablet 0.5 mg PO BID PRN (Reason: muscle spasm) Qty: 30 RF: 0 tramadol 50 mg tablet 100 mg PO Q6H PRN (Reason: pain) Qty: 90 RF: 2 potassium chloride 10 mEq capsule, extended release 10 meq PO BID Qty: 60 RF: 3 baclofen 10 mg tablet 10 mg PO BID Qty: 60 RF: 2 cholecalciferol (vitamin D3) 1,000 unit capsule 3,000 units PO QAM RF: 0 pramipexole [Mirapex] 0.5 mg tablet 0.5 mg PO HS Qty: 90 RF: 3 mirabegron 50 mg tablet extended release 24 hr 50 mg PO DAILY Qty: 30 RF: 5 fluticasone propionate 50 mcg/actuation spray,suspension 2 spray INTNAS DAILY PRN (Reason: NASALL CONGESTION) Qty: 15.8 RF: 11 albuterol sulfate 2.5 mg /3 mL (0.083 %) solution for nebulization 2.5 mg INH QID PRN (Reason: shortness of breath or wheezing) Qty: 90 RF: 3 albuterol sulfate 90 mcg/actuation HFA aerosol inhaler 2 puff INH Q6H PRN (Reason: shortness of breath or wheezing) Qty: 18 RF: 3 amoxicillin-pot clavulanate [Augmentin] 875-125 mg tablet 1 tab PO BID 10 Days Qty: 20 RF: 0 acetaminophen [Tylenol] 325 mg Tablet 325 mg PO QID PRN (Reason: Pain) RF: 0 biotin 5,000 mcg Tablet,Disintegrating 5,000 mcg PO QAM RF: 0 pantoprazole 40 mg tablet,delayed release (DR/EC) 40 mg PO BID RF: 0 rosuvastatin 10 mg tablet 10 mg PO QAM RF: 0 Breo Ellipta 100-25 mcg/dose blister with device 1 inh INHALATION HS RF: 0 Admission Data Admit Date/Time: 06/29/21 17:10 Attending Provider: Hussain Orlando Admit Provider: Darion Henriquez Primary Care Provider: Bismark Ronquillo Other Providers: Darion Henriquez ; Alysia Vieyra ; Chava Brown ; Kendy Carr Coding Level of Care Code D/C DAY MANAGEMENT <30 MINS Diagnoses Acute respiratory failure with hypoxia and hypercapnia J96.01; J96.02 Pneumonia due to COVID-19 virus U07.1; J12.82 Pneumothorax J93.9 Stress-induced cardiomyopathy I51.81 Rapid atrial fibrillation I48.91 Acute systolic CHF (congestive heart failure) I50.21 COPD (chronic obstructive pulmonary disease) J44.9 Foot drop, bilateral M21.371; M21.372 Urinary Incontinence R32 GERD (gastroesophageal reflux disease) K21.9 DMII (diabetes mellitus, type 2) E11.9 Morbid obesity with BMI of 50.0-59.9, adult E66.01; Z68.43 Hydroureteronephrosis N13.30 VIKKI (obstructive sleep apnea) G47.33 DVT prophylaxis Z29.9
--- NOTE | 2021-07-13 12:03 | Death Pronouncement Note ---
Date of Service July 13, 2021 Pronouncement Note Admission Date Admission Date: June 29, 2021 Date and Time of Date of : 07/13/21 Time of : 11:40 Contributing Factors (1) Acute respiratory failure with hypoxia and hypercapnia: (2) Pneumonia due to COVID-19 virus: (3) Pneumothorax: (4) Stress-induced cardiomyopathy: (5) Rapid atrial fibrillation: (6) Acute systolic CHF (congestive heart failure): (7) COPD (chronic obstructive pulmonary disease): (8) Foot drop, bilateral: (9) Urinary Incontinence: (10) GERD (gastroesophageal reflux disease): (11) DMII (diabetes mellitus, type 2): (12) Morbid obesity with BMI of 50.0-59.9, adult: (13) Hydroureteronephrosis: (14) VIKKI (obstructive sleep apnea): (15) DVT prophylaxis: Hospital Course Hospital Course: see d/c summary Additional Data Confirmation of : no pulse, no respirations, no heart sounds and pupils fixed and dilated Family: contacted Attending/PCP notified?: Yes Attending physician: Hussain Orlando, DO Was code activated?: No Autopsy requested?: No Coding Level of Care Code None Diagnoses Acute respiratory failure with hypoxia and hypercapnia J96.01; J96.02 Pneumonia due to COVID-19 virus U07.1; J12.82 Pneumothorax J93.9 Stress-induced cardiomyopathy I51.81 Rapid atrial fibrillation I48.91 Acute systolic CHF (congestive heart failure) I50.21 COPD (chronic obstructive pulmonary disease) J44.9 Foot drop, bilateral M21.371; M21.372 Urinary Incontinence R32 GERD (gastroesophageal reflux disease) K21.9 DMII (diabetes mellitus, type 2) E11.9 Morbid obesity with BMI of 50.0-59.9, adult E66.01; Z68.43 Hydroureteronephrosis N13.30 VIKKI (obstructive sleep apnea) G47.33 DVT prophylaxis Z29.9
[2021-07-13 12:32] LABS: iSTAT Art Bld Gas pH Corrected 7.399 (7.35-7.45); iSTAT Arterial Blood Gas pH 7.42 (7.35-7.45); iSTAT Hematocrit 39 % (37-47); iSTAT Hemoglobin 13.3 g/dl (12.0-16.0); iSTAT Potassium 4.8 mmol/L (3.3-5.0); iSTAT Sodium 138 mmol/L (135-144)
[2021-07-13 12:33] LABS: Patient Temperature 38.1; iSTAT Allen Test Not Performed; iSTAT Art Bld Gas pCO2 Correct 48 mmHg (35-46); iSTAT Arterial Blood Gas HCO3 29 meg/L (19-24); iSTAT Arterial Blood Gas pCO2 45 mmHg (35-46); iSTAT Arterial Blood Gas pO2 53 mmHg (80-95); iSTAT Arterial Blood Gas pO2 C 58; iSTAT Carbon Dioxide 30 mmol/L (24-31)
[2021-07-13 12:34] LABS: iSTAT Sample Type Arterial; iSTAT Site Art Line
[2021-07-13 12:35] LABS: iSTAT SpO2 86
--- NOTE | 2021-07-13 12:35 | Critical Care Progress Note ---
Date of Service July 13, 2021 Assessment & Plan (1) Stress-induced cardiomyopathy: (2) Rapid atrial fibrillation: (3) VIKKI (obstructive sleep apnea): (4) COVID-19: (5) Acute respiratory failure with hypoxia and hypercapnia: (6) Pneumonia due to COVID-19 virus: (7) Morbid obesity with BMI of 50.0-59.9, adult: Plan: Patient's ARDS and hypoxemia refractory to current management and unfortunately she has had no significant improvement. She remained severely hypoxemic despite under percent FiO2 and a PEEP of 14. PEEP values were decreased due to the patient's subcutaneous emphysema. She also has significant Takotsubo's cardiomyopathy which required opening. The family elected to pursue palliative extubation and comfort measures. Patient today on comfort measures. Greatly appreciate the services of the hospitalist team, nursing and palliative care. Admission and Anticipated Discharge Date Admission Date: June 29, 2021 Subjective Patient remains obtunded on high doses of sedation. Continues to remain severely hypoxic despite 100% FiO2 on ventilator. Numerous family discussions held by palliative care and family. I also discussed the case with palliative care nursing extensively. Greatly appreciate their services. Review of Systems Review of Systems: Unobtainable due to endotracheal tube Physical Exam Constitutional: + mechanically ventilated Significant subcutaneous emphysema extending into the anterior chest and bilateral neck regions as well as now into the shoulders Neck: trachea midline, no thyromegaly Respiratory: normal respiratory effort, lungs clear to auscultation Cardiovascular: RRR, no murmur, no edema Gastrointestinal (Abdomen): normal bowel sounds, soft, nontender, no hepatosplenomegaly Musculoskeletal: Extremities: extremities normal to inspection Skin: no rashes, warm and dry Lymphatic: no cervical lymphadenopathy Results & Data Results & Data ([facility]) Vital Signs (Past 12 Hours) Vital Signs Temp Pulse Resp BP Pulse Ox 07/13/21 11:30 40 L 1 L 07/13/21 11:15 80 79 L 07/13/21 11:00 82 26 H 80 L 07/13/21 10:54 84 26 H 79 L 07/13/21 10:00 80 28 H 79 L 07/13/21 09:00 82 26 H 81 L 07/13/21 08:18 37.5 C 07/13/21 08:00 83 26 H 83 L 07/13/21 07:48 83 26 H 81 L 07/13/21 07:30 83 26 H 81 L 07/13/21 07:00 85 25 H 80 L 07/13/21 06:30 82 13 80 L 07/13/21 06:00 81 12 81 L 07/13/21 05:30 82 12 82 L 07/13/21 05:00 81 9 L 81 L 07/13/21 04:30 83 11 L 80 L 07/13/21 04:00 37.9 C H 84 13 112/56 L 81 L 07/13/21 03:38 26 H 07/13/21 03:30 83 14 80 L 07/13/21 03:00 84 13 81 L 07/13/21 02:30 85 14 81 L 07/13/21 02:00 87 11 L 81 L 07/13/21 01:30 89 13 81 L 07/13/21 01:00 91 H 13 80 L Vital signs, labs and imaging personally reviewed Coding Level of Care Code 94670 Subseq Hosp Care Lvl 2 Diagnoses Stress-induced cardiomyopathy I51.81 Rapid atrial fibrillation I48.91 VIKKI (obstructive sleep apnea) G47.33 COVID-19 U07.1 Acute respiratory failure with hypoxia and hypercapnia J96.01; J96.02 Pneumonia due to COVID-19 virus U07.1; J12.82 Morbid obesity with BMI of 50.0-59.9, adult E66.01; Z68.43
== END 2021-07-13 15:14 | disposition expired | DRG 207 ==
LOC: ED 12:15 → 2S 17:10 → SUATTDRO 17:10 → 2S 20:05 → 2E 07-04 14:44